=== PATIENT | female | born 1950 | race Caucasian/White ===

== ENCOUNTER → 2020-08-03 10:21 | Outpatient (REF) | payer MEDICARE, MEDICAID, SELFPAY ==
--- NOTE | 2020-08-03 10:30 | CA_ITS ---
Transthoracic Echocardiogram Patient (Last, First, Middle): Amanda Maradiaga L Gender: Female Date of : 1950 Age: 70 Procedure Date: 08/03/2020 Procedure Type: Transthoracic Echocardiogram Location: OP Height: 157.48 cm Weight: 87.09 kg BSA: 1.88 m2 Heart Rate: bpm BP: 130 / 80 mmHg [employer] Wheel [employer]isher: OPAL Referring MD: Danny Lorenzana MD Symptoms: 135.0 Nonrheumatic Aortic Valve Stenosis Conclusions: - Normal left ventricular size and systolic function. - E/E prime ratio is >15, consistent with elevated filling pressures - The left atrium is severely dilated - There is moderate to severe aortic valve stenosis. The peak aortic velocity is 3.87 m/s with a calculated peak gradient of 60 mmHg. The mean gradient is 31 mmHg. The aortic valve area is 0.90 cm2. There is trace (trivial) aortic valve regurgitation. SVI 36.7. - Gradient may have been underestimated. Correlate clinically. - There is mild dilatation of the ascending aorta. Findings Left Ventricle Normal left ventricular size and systolic function. There is moderately increased left ventricular wall thickness. The visually estimated ejection fraction is between 55-60%. There is no evidence of regional wall motion abnormalities. Abnormal diastolic function is noted. Spectral Doppler is indicative of an impaired relaxation filling pattern. E/E prime ratio is >15, consistent with elevated filling pressures. Right Ventricle Normal right ventricular cavity size and systolic function. Atria The left atrium is severely dilated. There is no evidence of interatrial shunt by color Doppler. The right atrium is mildly dilated. Aortic Valve There is moderate calcification of the aortic valve. There is mild thickening of the aortic valve. There is moderate to severe aortic valve stenosis. The peak aortic velocity is 3.87 m/s with a calculated peak gradient of 60 mmHg. The mean gradient is 31 mmHg. The aortic valve area is 0.90 cm2. There is trace (trivial) aortic valve regurgitation. SVI 36.7. Gradient may have been underestimated. Correlate clinically. Mitral Valve There is moderate mitral annular calcification. There is trace mitral valve regurgitation. There is no mitral valve stenosis. Pulmonic Valve The pulmonic valve is likely normal. Tricuspid Valve Normal tricuspid valve structure and function. There is trace tricuspid valve regurgitation. Normal right atrial pressure. There is no evidence of pulmonary hypertension. Great Vessels There is mild dilatation of the ascending aorta. The visualized portions of the pulmonary artery and branches are normal. Venous The inferior vena cava is normal in size and collapses greater than 50% with inspiration. Pericardium/Pleural There is no evidence of pericardial effusion. Prior Study Comparison Significant changes compared to prior study dated: 06/25/2018. Moderate to severe present. Measurements 2D Linear Measurements IVSd: 1.25 0.6-0.9/0.6-1.0 cm LVIDd: 5.07 3.9-5.3/4.2-5.9 cm LVIDd Index: 2.70 2.4-3.2/2.2-3.1 cm/m2 LVIDs: 3.32 2.0-3.6 cm LVPWd: 1.21 0.7-1.1 cm Ao Root: 2.70 2.1-3.5 cm LA Diam: 5.90 2.7-3.8/3.0-4.0 cm LAIDs Index: 3.14 1.5-2.3 cm/m2 LV Mass: 308.50 67-162/88-224 g LV Mass Index: 164.10 43-95/49-115 g/m2 LVOT Diam: 2.00 3.0+(-)1.3 cm 2D Systolic Function EF 4C: 65.20 >55% EF 2C: 72.90 >55% EF BiP: 70.30 >55% Mitral Valve MV Pk E: 1.03 MV PK A: 1.15 MV Decel Time: 327.00 E/A: 0.90 E'Lateral: 7.16 E'Medial: 6.38 E/E' Med: 16.10 E/E' Lat: 14.40 PHT: 96.00 MVA PHT: 2.29 Decel [place]: 3.14 Aortic Valve AoV Pk Trey: 3.87 AoV Mn Trey: 2.26 AoV VTI: 0.75 AoV Pk Grad: 60.00 Aov Mn Grad: 31.00 AMBAR Cont.VTI: 0.90 LVOT LVOT Pk Trey: 0.96 LVOT Mn Trey: 0.70 LVOT VTI: 0.22 LVOT Pk Grad: 4.00 LVOT Mn Grad: 2.00 LVOT Diam: 2.00 LVOT Area: 3.14 Diastolic Function MV Pk E: 1.03 MV Pk A: 1.15 E/A: 0.90 E'Medial: 6.38 E/E' Med: 16.10 E' Laterial: 7.16 E/E' Lat: 14.40 Tricuspid Valve TR Pk Trey: 2.54 TR Pk Grad: 26.00 RA Press: 3.00 RVSP: 29.00 Great Vessels Aorta Ao Root-2D: 2.70 2.0-3.7 cm Ao Asc: 3.80 2.1-3.4 cm Ao Arch: 2.80 Updated in Other Vendor System with Status of Final Sharif Muhammad MD electronically signed on 08/04/2020 11:12:57 AM with status of Final
== END ==
LOC: HO.CARD 10:21
PROVIDERS: Visit Provider Internal Medicine
DX: I35.0 Nonrheumatic aortic (valve) stenosis (principal)
CPT/HCPCS: 93306

== ENCOUNTER → 2020-08-19 12:31 | Outpatient (BNVA) | payer MEDICARE, MEDICAID, SELFPAY | PROVIDERS: PCP Internal Medicine; Visit Provider Internal Medicine | DX: I50.32 Chronic diastolic (congestive) heart failure (principal); I35.0 Nonrheumatic aortic (valve) stenosis; I25.10 Atherosclerotic heart disease of native coronary artery without angina pectoris; I49.8 Other specified cardiac arrhythmias; I45.2 Bifascicular block; G47.33 Obstructive sleep apnea (adult) (pediatric); Z79.899 Other long term (current) drug therapy; Z99.81 Dependence on supplemental oxygen | CPT/HCPCS: 93005; 99212 ==

== ENCOUNTER 2020-08-30 13:23 | Outpatient (REF) | payer MEDICARE, MEDICAID, SELFPAY ==
[2020-08-30 14:49] LABS: HCO3 VBG 31 mmol/L; PCO2 VBG 52 mmhg; PO2 VBG 43 mmhg; pH VBG 7.39 (7.32-7.43)
[2020-08-30 14:50] LABS: Base Excess VBG 4.3 mmol/L; Oxygen Saturation VBG 82.3 %
[2020-08-30 15:08] LABS: Anion Gap 11 (12-20); Blood Urea Nitrogen 20 mg/dL (9-16); Carbon Dioxide 31 mmol/L (22-29); Chloride 102 mmol/L (96-108); Estimated Glomerular Filt Rate > 60; Glucose Random 101 mg/dL (60-115); Potassium 3.6 mmol/l (3.3-5.1); Sodium 140 mmol/L (135-145)
[2020-08-30 15:14] LABS: B Type Natriuretic Peptide 143 pg/mL (<100)
== END 2020-08-30 13:24 | disposition home or self-care (01) ==
LOC: HO.LABR 13:23
PROVIDERS: Absent Provider Internal Medicine; PCP Internal Medicine; Referring Provider Internal Medicine; Visit Provider Internal Medicine
DX: J44.9 Chronic obstructive pulmonary disease, unspecified (principal); J96.91 Respiratory failure, unspecified with hypoxia; J96.92 Respiratory failure, unspecified with hypercapnia; I35.0 Nonrheumatic aortic (valve) stenosis; I50.32 Chronic diastolic (congestive) heart failure; G47.33 Obstructive sleep apnea (adult) (pediatric); Z99.81 Dependence on supplemental oxygen
CPT/HCPCS: 80048; 82803; 83880; 99212

== ENCOUNTER 2020-09-22 15:13 | Outpatient (REF) | payer MEDICARE, MEDICAID, SELFPAY ==
[2020-09-22 16:14] LABS: MANUAL DIFF FLAG NO
[2020-09-22 16:17] LABS: Basophils Absolute Auto 0.1 X10*3/uL (0.0-0.2); Basophils Percent Auto 0.6 % (0-2); Eosinophils Absolute Auto 0.2 X10*3/uL (0.0-0.4); Eosinophils Percent Auto 1.7 % (0-4); Hematocrit 46.7 % (37-47); Hemoglobin 15.1 g/dl (12.0-16.0); Imm Gran Abs Auto 0.03 X10*3/uL (0.00-0.03); Imm Gran Pct Auto 0.3 % (0.0-0.4); Lymphocytes Absolute Auto 1.7 X10*3/uL (1.2-4.9); Lymphocytes Percent Auto 18.7 % (20-40); Mean Corpuscular HGB Conc 32.3 g/dl (31.0-35.0); Mean Corpuscular Hemoglobin 30.6 pg (27.0-33.0); Mean Corpuscular Volume 94.5 fL (80-98); Mean Platelet Volume 10.2 fL (9.4-12.3); Monocytes Absolute Auto 0.8 X10*3/uL (0.1-1.2); Neutrophils Absolute Auto 6.4 X10*3/uL (2.0-8.3); Neutrophils Percent Auto 69.7 % (45-73); Platelet Count 247 X10*3/uL (160-400); Red Blood Count 4.94 X10*6/uL (4.20-5.50); Red Cell Distribution Width 13.1 % (11.0-16.0); White Blood Count 9.2 X10*3/uL (4.8-10.8)
[2020-09-22 16:54] LABS: Alanine Aminotransferase 9 U/L (0-31); Albumin Level 4.4 g/dL (3.5-5.0); Alkaline Phosphatase 109 U/L (39-117); Anion Gap 14 (12-20); Aspartate Amino Transferase 17 U/L (5-31); Bilirubin Total 0.8 mg/dL (0.0-1.0); Blood Urea Nitrogen 15 mg/dL (9-16); Calcium 9.3 mg/dL (8.4-10.2); Carbon Dioxide 31 mmol/L (22-29); Chloride 99 mmol/L (96-108); Estimated Glomerular Filt Rate > 60; Glucose Random 95 mg/dL (60-115); Potassium 4.1 mmol/l (3.3-5.1); Sodium 140 mmol/L (135-145); Total Protein 7.5 g/dL (6.5-8.0)
== END 2020-09-22 15:14 | disposition home or self-care (01) ==
LOC: HO.LNP 15:13
PROVIDERS: PCP Internal Medicine; Visit Provider Internal Medicine
DX: Z20.828 Contact with and (suspected) exposure to other viral communicable diseases (principal); R05 Cough; R06.02 Shortness of breath; R10.9 Unspecified abdominal pain; K62.5 Hemorrhage of anus and rectum; J44.9 Chronic obstructive pulmonary disease, unspecified
CPT/HCPCS: 36415; 80053; 85025; U0003

== ENCOUNTER 2020-09-28 14:23 | Outpatient (REF) | payer MEDICARE, MEDICAID, SELFPAY ==
--- NOTE | 2020-09-28 | XR_ITS ---
EXAMINATION: XR ABDOMEN WITH DECUBITUS VIEWS CLINICAL INDICATION: Abdominal pain COMPARISON: CT scan of June 25, 2020 and KUB of October 10, 2019 TECHNIQUE: KUB FINDINGS: There is again noted to be a large amount of stool seen within the right colon, transverse colon, and descending colon. No pneumatosis intestinalis. No evidence of ileus or obstruction. No definite secondary signs of free air. Calcified pleural plaques seen about the right lung base. Degenerative change of sacroiliac joints are evident. Status post right upper quadrant surgery likely related to previous cholecystectomy. XR/XR abdomen w decubitus IMPRESSION: No evidence of ileus or obstruction. Large amount of stool seen throughout the colon.
== END 2020-09-28 14:24 | disposition home or self-care (01) ==
LOC: HO.XRAY 14:23
PROVIDERS: Absent Provider Internal Medicine; PCP Internal Medicine; Visit Provider Internal Medicine
DX: J96.91 Respiratory failure, unspecified with hypoxia (principal); J96.92 Respiratory failure, unspecified with hypercapnia; J44.9 Chronic obstructive pulmonary disease, unspecified; G47.33 Obstructive sleep apnea (adult) (pediatric); I50.32 Chronic diastolic (congestive) heart failure; R10.9 Unspecified abdominal pain; K62.5 Hemorrhage of anus and rectum
CPT/HCPCS: 74021; 99212

== ENCOUNTER → 2020-10-04 14:06 | Outpatient (BNVA) | payer MEDICARE, MEDICAID, SELFPAY | PROVIDERS: PCP Internal Medicine; Visit Provider Internal Medicine | DX: I50.32 Chronic diastolic (congestive) heart failure (principal); I35.0 Nonrheumatic aortic (valve) stenosis; I25.10 Atherosclerotic heart disease of native coronary artery without angina pectoris; I49.8 Other specified cardiac arrhythmias; I45.2 Bifascicular block; G47.33 Obstructive sleep apnea (adult) (pediatric); Z99.81 Dependence on supplemental oxygen | CPT/HCPCS: 93005; 99212 ==

== ENCOUNTER → 2020-10-25 13:39 | Outpatient (BNVA) | payer MEDICARE, MEDICAID, SELFPAY | PROVIDERS: PCP Internal Medicine; Referring Provider Internal Medicine; Visit Provider Urology | DX: Z76.89 Persons encountering health services in other specified circumstances (principal) | CPT/HCPCS: Q3014 ==

== ENCOUNTER 2020-10-29 12:37 | Emergency (ER) | payer MEDICARE, MEDICAID, SELFPAY ==
--- NOTE | 2020-10-29 12:46 | ED_ITS ---
HPI - Chest Pain General Chief Complaint: Chest Pain Stated Complaint: cp Time Seen by Provider: 10/29/20 12:46 Source: patient Mode of arrival: ambulatory Limitations: no limitations History of Present Illness HPI narrative: patient with multiple complaints I have chest pain for a long time. I have neuropathy No one understands me I have neuropathy, I think I belong in a hospital. was given ASA and nitro with EMS no relief of her chronic chest pain, had cardiac cath 2018 non obs CAD, does have moderate to severe possible TAVR candidate but is O2 dependent COPDer complaint: chest pain Pertinent past history: asthma Onset (ago): year(s) ( a long time ) Timing of current episode: constant Prior episodes: Yes Onset: during rest and during exertion Pain location: left chest Pain radiation: none Severity: similar to previous episodes Quality: heaviness Relieving factors: nothing Exacerbating factors: nothing Context: other (chronic chest pain) Associated symptoms: other (weakness, fatigue, neuropathy) Treatment prior to arrival: aspirin and nitroglycerin Related Data Home Medications Medication Instructions Recorded Confirmed atorvastatin 40 mg tablet 40 mg PO ONCE tab 08/19/20 10/04/20 diltiazem HCl 120 mg 120 mg PO Q12H cap 08/19/20 10/04/20 capsule,extended release 12 hr fluticasone furoate 200 1 inh INHALATION DAILY 08/30/20 10/04/20 mcg-vilanterol 25 mcg/dose inhalation powder guaifenesin 600 mg tablet, 600 mg PO BID 08/30/20 10/04/20 extended release 12 hr ipratropium 0.5 mg-albuterol 3 mg 3 ml INHALATION Q6H PRN 08/30/20 10/04/20 (2.5 mg base)/3 mL nebulization soln tiotropium bromide 18 mcg capsule 1 cap INHALATION DAILY 08/30/20 10/04/20 with inhalation device clonazepam 0.5 mg tablet 0.5 mg PO BEDTIME tab 10/04/20 10/04/20 dicyclomine 10 mg capsule 10 mg PO BID PRN cap 10/04/20 10/04/20 furosemide 20 mg tablet 40 mg PO BID tab 10/04/20 10/04/20 levothyroxine 175 mcg tablet 175 mcg PO DAILY tab 10/04/20 10/04/20 mirabegron 50 mg tablet,extended 50 mg PO DAILY tab 10/04/20 10/04/20 release 24 hr omeprazole 20 mg capsule,delayed 20 mg PO DAILY cap 10/04/20 10/04/20 release oxybutynin chloride 10 mg 10 mg PO DAILY tab 10/04/20 10/04/20 tablet,extended release 24 hr vilazodone 40 mg tablet 40 mg PO DAILY tab 10/04/20 10/04/20 desvenlafaxine succinate 25 mg mg PO 10/25/20 tablet,extended release 24 hr lactulose 10 gram/15 mL oral PO 10/25/20 solution Previous Rx's Medication Instructions Recorded albuterol sulfate 90 mcg/actuation 2 puff PO DAILY PRN #18 g 09/22/20 aerosol inhaler Allergies Allergy/AdvReac Type Severity Reaction Status Date / Time morphine [Morphine] Allergy Unknown UNKNOWN Verified 10/04/20 14:20 Review of Systems Review of Systems: Constitutional : No Weight loss, No Fever, No Chills ENT/Mouth : No sore throat, No Rhinorrhea Eyes: No Eye Pain, No Swelling Cardiovascular : pos Chest Pain, pos SOB, no Dyspnea on Exertion, No Orthopnea, No Edema, No Palpitations Respiratory : No Cough, No Sputum Gastrointestinal : pos Nausea, No Vomiting, No Diarrhea, No abdominal Pain, No Hematochezia, No Melena Genitourinary : No Dysuria, No Urinary Frequency Musculoskeletal : No joint pain, No Myalgias, No Joint Swelling Skin : No Skin Lesions, No rash Neuro : No Weakness, No Numbness, No Dizziness, No Headache Psych : No Anxiety/Panic, No Depression Heme/Lymph: No Bruising, No Lymphadenopathy Endocrine : No Polyuria, No Polydipsia All other systems reviewed and are negative [facility] Past Medical History Attestation statement: The following information was validated with the patient. Medical History Atherosclerotic cardiovascular disease Atrial arrhythmia Bifascicular block Chronic diastolic (congestive) heart failure COPD (chronic obstructive pulmonary disease) COPD (chronic obstructive pulmonary disease) Enuresis Nonrheumatic aortic (valve) stenosis On home oxygen therapy DHEERAJ (obstructive sleep apnea) Respiratory failure with hypoxia and hypercapnia Urge incontinence Surgical History History of umbilical hernia repair Family History Family History Father No problems noted. Mother No problems noted. Social History Social History Alcohol intake: never Smoking Status: Current every day smoker Smoked in Last 30 Days: No Use of substances other than those prescribed or required for medical reasons: No Advance Directives: No Advance Directives Information Provided: Yes Physical Exam Vital Signs: Vital Signs: Last Vital Signs Temp 97.6 F 10/29/20 12:56 Pulse 72 10/29/20 12:56 Resp 18 10/29/20 12:56 BP 111/78 10/29/20 12:56 Pulse Ox 94 10/29/20 12:56 Body Mass Index 47.0 Appearance: Alert. Oriented X3. No acute distress. Flat affect Eyes: Pupils equal, round and reactive to light. ENT: Pharynx normal. Neck: Normal inspection. Neck supple. CVS: Normal heart rate and rhythm. Pulses normal. Respiratory: No respiratory distress. Breath sounds normal. Abdomen: Soft and nontender. Skin: Skin warm and dry. Normal skin color. Normal skin turgor. Extremities: No lower extremity edema. No calf ttp Neuro: Oriented X 3. No motor deficit. No sensory deficit. Course Course Course Narrative: signed out to Dr. De Jesus pending repeat troponin MDM - Chest Pain MDM Narrative Medical decision making narrative: 70 yo female with COPD, atrial arrythmia, on home O2, here with chronic chest pain, nausea, neuropathy, feels tired I think I should be admitted to the hospital When I explained to the patient that I needed an acute reason to admit as this seems all chronic she was upset - possible rehab, at this time will obtain EKG, CXR, troponin, basic labs, she is not toxic, I doubt PE as she has had chest pain for years Lab Data Result diagrams: 10/29/20 14:27 10/29/20 14:28 Labs: Lab Results 10/29/20 10/29/20 10/29/20 Range/Units 14:12 14:27 14:27 WBC 7.9 (4.8-10.8) X10*3/uL RBC 4.96 (4.20-5.50) X10*6/uL Hgb 15.1 (12.0-16.0) g/dl Hct 46.6 (37-47) % MCV 94.0 (80-98) fL MCH 30.4 (27.0-33.0) pg MCHC 32.4 (31.0-35.0) g/dl RDW 13.2 (11.0-16.0) % Plt Count 212 (160-400) X10*3/uL MPV 9.7 (9.4-12.3) fL Immature Gran % (Auto) 0.3 (0.0-0.4) % Neut % (Auto) 68.6 (45-73) % Lymph % (Auto) 20.3 (20-40) % [place] % (Auto) 8.7 (2-11) % Eos % (Auto) 1.6 (0-4) % Baso % (Auto) 0.5 (0-2) % Lymph # (Auto) 1.6 (1.2-4.9) X10*3/uL [place] # (Auto) 0.7 (0.1-1.2) X10*3/uL Eos # (Auto) 0.1 (0.0-0.4) X10*3/uL Baso # (Auto) 0.0 (0.0-0.2) X10*3/uL Abs Immat Gran (auto) 0.02 (0.00-0.03) X10*3/uL Absolute Neuts (auto) 5.5 (2.0-8.3) X10*3/uL Absolute Nucleated RBC 0.000 (0.0-0.012) X10*3/uL Nucleated RBC % (auto) 0.0 (0.0-0.2) /100WBC Hold Blue Top Sodium (135-145) mmol/L Potassium (3.3-5.1) mmol/l Chloride (96-108) mmol/L Carbon Dioxide (22-29) mmol/L Anion Gap (12-20) BUN (9-16) mg/dL Creatinine (0.5-1.4) mg/dL Estim Creat Clear Calc Estimated GFR Random Glucose (60-115) mg/dL Calcium (8.4-10.2) mg/dL Magnesium (1.6-2.6) mg/dL Total Bilirubin (0.0-1.0) mg/dL Direct Bilirubin (0.0-0.5) mg/dL AST (5-31) U/L ALT (0-31) U/L Alkaline Phosphatase (39-117) U/L Total Creatine Kinase (26-140) U/L Troponin I High Sens (<3.5-17.0) ng/L B-Natriuretic Peptide 228 H (<100) pg/mL Total Protein (6.5-8.0) g/dL Albumin (3.5-5.0) g/dL Lipase (8-78) U/L Urine Color Urine Appearance Urine pH (5.0-8.0) Ur Specific [place] (1.005-1.025) Urine Protein (NEG-TRACE) MG/DL Urine Glucose (UA) (NEG) MG/DL Urine Ketones (NEG) MG/DL Urine Blood (NEG) Urine Nitrite (NEG) Ur Leukocyte Esterase (NEG) Urine RBC (0) /HPF Urine WBC (0-4) /HPF Ur Squamous Epith Cells /LPF Urine Bacteria /LPF COVID-19 ([facility]) Negative (Negative) COVID-19 Clin Com See Note 10/29/20 10/29/20 10/29/20 Range/Units 14:27 14:27 14:27 WBC (4.8-10.8) X10*3/uL RBC (4.20-5.50) X10*6/uL Hgb (12.0-16.0) g/dl Hct (37-47) % MCV (80-98) fL MCH (27.0-33.0) pg MCHC (31.0-35.0) g/dl RDW (11.0-16.0) % Plt Count (160-400) X10*3/uL MPV (9.4-12.3) fL Immature Gran % (Auto) (0.0-0.4) % Neut % (Auto) (45-73) % Lymph % (Auto) (20-40) % [place] % (Auto) (2-11) % Eos % (Auto) (0-4) % Baso % (Auto) (0-2) % Lymph # (Auto) (1.2-4.9) X10*3/uL [place] # (Auto) (0.1-1.2) X10*3/uL Eos # (Auto) (0.0-0.4) X10*3/uL Baso # (Auto) (0.0-0.2) X10*3/uL Abs Immat Gran (auto) (0.00-0.03) X10*3/uL Absolute Neuts (auto) (2.0-8.3) X10*3/uL Absolute Nucleated RBC (0.0-0.012) X10*3/uL Nucleated RBC % (auto) (0.0-0.2) /100WBC Hold Blue Top SEE NOTE Sodium (135-145) mmol/L Potassium (3.3-5.1) mmol/l Chloride (96-108) mmol/L Carbon Dioxide (22-29) mmol/L Anion Gap (12-20) BUN (9-16) mg/dL Creatinine (0.5-1.4) mg/dL Estim Creat Clear Calc Estimated GFR Random Glucose (60-115) mg/dL Calcium (8.4-10.2) mg/dL Magnesium (1.6-2.6) mg/dL Total Bilirubin (0.0-1.0) mg/dL Direct Bilirubin (0.0-0.5) mg/dL AST (5-31) U/L ALT (0-31) U/L Alkaline Phosphatase (39-117) U/L Total Creatine Kinase (26-140) U/L Troponin I High Sens 16.0 (<3.5-17.0) ng/L B-Natriuretic Peptide (<100) pg/mL Total Protein (6.5-8.0) g/dL Albumin (3.5-5.0) g/dL Lipase 11 (8-78) U/L Urine Color Urine Appearance Urine pH (5.0-8.0) Ur Specific [place] (1.005-1.025) Urine Protein (NEG-TRACE) MG/DL Urine Glucose (UA) (NEG) MG/DL Urine Ketones (NEG) MG/DL Urine Blood (NEG) Urine Nitrite (NEG) Ur Leukocyte Esterase (NEG) Urine RBC (0) /HPF Urine WBC (0-4) /HPF Ur Squamous Epith Cells /LPF Urine Bacteria /LPF COVID-19 ([facility]) (Negative) COVID-19 Clin Com 10/29/20 10/29/20 Range/Units 14:28 15:06 WBC (4.8-10.8) X10*3/uL RBC (4.20-5.50) X10*6/uL Hgb (12.0-16.0) g/dl Hct (37-47) % MCV (80-98) fL MCH (27.0-33.0) pg MCHC (31.0-35.0) g/dl RDW (11.0-16.0) % Plt Count (160-400) X10*3/uL MPV (9.4-12.3) fL Immature Gran % (Auto) (0.0-0.4) % Neut % (Auto) (45-73) % Lymph % (Auto) (20-40) % [place] % (Auto) (2-11) % Eos % (Auto) (0-4) % Baso % (Auto) (0-2) % Lymph # (Auto) (1.2-4.9) X10*3/uL [place] # (Auto) (0.1-1.2) X10*3/uL Eos # (Auto) (0.0-0.4) X10*3/uL Baso # (Auto) (0.0-0.2) X10*3/uL Abs Immat Gran (auto) (0.00-0.03) X10*3/uL Absolute Neuts (auto) (2.0-8.3) X10*3/uL Absolute Nucleated RBC (0.0-0.012) X10*3/uL Nucleated RBC % (auto) (0.0-0.2) /100WBC Hold Blue Top Sodium 143 (135-145) mmol/L Potassium 3.9 (3.3-5.1) mmol/l Chloride 103 (96-108) mmol/L Carbon Dioxide 30 H (22-29) mmol/L Anion Gap 14 (12-20) BUN 13 (9-16) mg/dL Creatinine 0.79 (0.5-1.4) mg/dL Estim Creat Clear Calc 93.8 Estimated GFR > 60 Random Glucose 91 (60-115) mg/dL Calcium 9.1 (8.4-10.2) mg/dL Magnesium 2.3 (1.6-2.6) mg/dL Total Bilirubin 0.9 (0.0-1.0) mg/dL Direct Bilirubin 0.4 (0.0-0.5) mg/dL AST 15 (5-31) U/L ALT 11 (0-31) U/L Alkaline Phosphatase 102 (39-117) U/L Total Creatine Kinase 39 (26-140) U/L Troponin I High Sens (<3.5-17.0) ng/L B-Natriuretic Peptide (<100) pg/mL Total Protein 6.9 (6.5-8.0) g/dL Albumin 4.1 (3.5-5.0) g/dL Lipase (8-78) U/L Urine Color YELLOW Urine Appearance CLEAR Urine pH 6.5 (5.0-8.0) Ur Specific [place] 1.010 (1.005-1.025) Urine Protein NEG (NEG-TRACE) MG/DL Urine Glucose (UA) NEG (NEG) MG/DL Urine Ketones NEG (NEG) MG/DL Urine Blood NEG (NEG) Urine Nitrite NEG (NEG) Ur Leukocyte Esterase 1+ H (NEG) Urine RBC 0-2 (0) /HPF Urine WBC 5-9 H (0-4) /HPF Ur Squamous Epith Cells 1+ /LPF Urine Bacteria TRACE /LPF COVID-19 ([facility]) (Negative) COVID-19 Clin Com ECG Data ECG #1: Attestation: I personally reviewed and interpreted this ECG as follows: ECG interpretation date: 10/29/20 ECG interpretation time: 14:55 Interpretation: Rate: 66 Rhythm: NSR [place]: left Normal P waves. Normal RIP. RBBB ST T wave : nonspecific, no SUSAN qTC: normal prior studies: no acute ischemia, no change from priors The study has been interpreted contemporaneously by me. . Discharge Plan Discharge Clinical Impression: Chest pain Prescriptions: No Action albuterol sulfate 90 mcg/actuation HFA aerosol inhaler 2 puff PO DAILY PRN (Reason: for dyspnea) Qty: 18 RF: 3 lactulose 10 gram/15 mL solution PO RF: 0 desvenlafaxine succinate 25 mg tablet extended release 24 hr PO RF: 0 oxybutynin chloride 10 mg tablet extended release 24hr 10 mg PO DAILY RF: 0 guaifenesin [Mucinex] 600 mg tablet extended release 12hr 600 mg PO BID RF: 0 Breo Ellipta 200-25 mcg/dose blister with device 1 inh inhalation DAILY RF: 0 Spiriva with HandiHaler 18 mcg capsule, w/inhalation device 1 cap inhalation DAILY RF: 0 ipratropium-albuterol 0.5 mg-3 mg(2.5 mg base)/3 mL solution for nebulization 3 ml inhalation Q6H PRNRF: 0 diltiazem HCl 120 mg capsule,extended release 12 hr 120 mg PO Q12H RF: 0 atorvastatin 40 mg tablet 40 mg PO ONCE RF: 0 vilazodone 40 mg tablet 40 mg PO DAILY RF: 0 omeprazole 20 mg capsule,delayed release(DR/EC) 20 mg PO DAILY RF: 0 levothyroxine 175 mcg tablet 175 mcg PO DAILY RF: 0 furosemide 20 mg tablet 40 mg PO BID RF: 0 dicyclomine 10 mg capsule 10 mg PO BID PRNRF: 0 clonazepam 0.5 mg tablet 0.5 mg PO BEDTIME RF: 0 Myrbetriq 50 mg tablet extended release 24 hr 50 mg PO DAILY RF: 0
[2020-10-29 12:56] VITALS: BP 111/78; BP 118/70; PULSE 72; PULSE 90; RESP 18; TEMP 36.4; O2SAT 94; O2SAT 95; BMI 47.0
--- NOTE | 2020-10-29 13:03 | ECG_ITS ---
Test Reason : CHEST PAIN Blood Pressure : / mmHG Vent. Rate : 066 BPM Atrial Rate : 066 BPM P-R Int : 160 ms QRS Dur : 148 ms QT Int : 450 ms P-R-T Axes : 007 -57 016 degrees QTc Int : 471 ms Normal sinus rhythm Right bundle branch block Left anterior fascicular block Bifascicular block Minimal voltage criteria for LVH, may be normal variant Abnormal ECG When compared with ECG of 25-JUN-2020 10:18, Premature atrial complexes are no longer Present Referred By: Triny Salvador Electronically Signed By:ARMANDO KENNEDY MD
--- NOTE | 2020-10-29 13:04 | XR_ITS ---
EXAMINATION: XR CHEST CLINICAL INFORMATION: Chest pain COMPARISON: None TECHNIQUE: Frontal view of the chest was obtained. FINDINGS: The lungs are well-expanded with increased bilateral parahilar vascular markings question mild congestion. The heart size is enlarged. No gross bony abnormality seen. XR/XR chest 1V IMPRESSION: Mild cardiomegaly with mild perivascular congestion.
[2020-10-29 14:32] LABS: MANUAL DIFF FLAG NO
[2020-10-29 14:36] LABS: Basophils Percent Auto 0.5 % (0-2); Eosinophils Absolute Auto 0.1 X10*3/uL (0.0-0.4); Eosinophils Percent Auto 1.6 % (0-4); Hematocrit 46.6 % (37-47); Hemoglobin 15.1 g/dl (12.0-16.0); Imm Gran Abs Auto 0.02 X10*3/uL (0.00-0.03); Imm Gran Pct Auto 0.3 % (0.0-0.4); Lymphocytes Absolute Auto 1.6 X10*3/uL (1.2-4.9); Lymphocytes Percent Auto 20.3 % (20-40); Mean Corpuscular HGB Conc 32.4 g/dl (31.0-35.0); Mean Corpuscular Hemoglobin 30.4 pg (27.0-33.0); Mean Platelet Volume 9.7 fL (9.4-12.3); Monocytes Absolute Auto 0.7 X10*3/uL (0.1-1.2); Monocytes Percent Auto 8.7 % (2-11); Neutrophils Absolute Auto 5.5 X10*3/uL (2.0-8.3); Neutrophils Percent Auto 68.6 % (45-73); Platelet Count 212 X10*3/uL (160-400); Red Blood Count 4.96 X10*6/uL (4.20-5.50); Red Cell Distribution Width 13.2 % (11.0-16.0); White Blood Count 7.9 X10*3/uL (4.8-10.8)
[2020-10-29 14:50] LABS: COVID-19 Test Negative (Negative); IDNOW Serial# 9DD0AD1C
[2020-10-29 15:03] LABS: Lipase 11 U/L (8-78)
[2020-10-29 15:04] LABS: Alanine Aminotransferase 11 U/L (0-31); Albumin Level 4.1 g/dL (3.5-5.0); Alkaline Phosphatase 102 U/L (39-117); Anion Gap 14 (12-20); Aspartate Amino Transferase 15 U/L (5-31); Bilirubin Direct 0.4 mg/dL (0.0-0.5); Bilirubin Total 0.9 mg/dL (0.0-1.0); Blood Urea Nitrogen 13 mg/dL (9-16); Calcium 9.1 mg/dL (8.4-10.2); Carbon Dioxide 30 mmol/L (22-29); Chloride 103 mmol/L (96-108); Creatinine Clr Calc Pharmacy 93.8; Estimated Glomerular Filt Rate > 60; Glucose Random 91 mg/dL (60-115); Magnesium 2.3 mg/dL (1.6-2.6); Potassium 3.9 mmol/l (3.3-5.1); Sodium 143 mmol/L (135-145); Total Protein 6.9 g/dL (6.5-8.0)
[2020-10-29 15:11] LABS: B Type Natriuretic Peptide 228 pg/mL (<100)
[2020-10-29 15:15] LABS: Glucose Urine UA NEG (NEG); Leukocyte Esterase Urine 1+ (NEG); Nitrite Urine NEG (NEG); PH 6.5 (5.0-8.0); Urine Blood NEG (NEG); Urine Ketones NEG (NEG); Urine Protein NEG (NEG-TRACE)
[2020-10-29 15:45] LABS: Appearance Urine CLEAR; Color Urine YELLOW
[2020-10-29 15:46] LABS: Bacteria Urine TRACE /LPF; RBC Urine 0-2 /HPF (0); Squamous Epithelial Cell Urine 1+ /LPF
[2020-10-29 16:00] VITALS: PULSE 70; RESP 18; O2SAT 94
[2020-10-29 18:22] VITALS: PULSE 74; RESP 16; O2SAT 96
[2020-10-29 18:34] LABS: Troponin-I High Sensitivity 14.7 ng/L (<3.5-17.0)
[2020-10-29 18:40] VITALS: BP 153/81; PULSE 68; RESP 14; TEMP 37.2; O2SAT 94
--- NOTE | 2020-10-29 19:26 | PC.NURSE ---
Report taken from laura Garrison RN resuming care. Pt reporting a POON, CP radiating into her stomach and difficulty swallowing. Pt expressing a desire to go home, states they haven't done anything for me today. VSS. Continue to monitor.
[2020-10-29 19:48] VITALS: PULSE 64; RESP 18; O2SAT 96
--- NOTE | 2020-10-29 20:01 | PC.NURSE ---
Pt made aware of pending DC, pt extremely apprehensive about being discharged home. Pt states that she feels safe at home, lives with her son who helps care for her. This RN discussing long-term care or rehab placement with pt, pt refusing to entertain the idea of rehab or SNF placement. This RN offering to have MD reevaluate pt due to her continued complaints but pt refusing. This RN calling son Ward discussing plan to DC pt home via ambulance. Son states that pt recently saw her PCP this week due to feeling poorly and was fully evaluated. Son states that pt has anxiety due to multiple chronic conditions. Son assuring this RN that he is able to care for pt @ home. Continue to monitor.
[2020-10-29 21:16] VITALS: BP 124/72
--- NOTE | 2020-10-29 21:16 | PC.NURSE ---
x ray tech at bedside helping pt dress. Report given to EMS. Pt provided with DC instructions.
== END 2020-10-29 21:30 | disposition home or self-care (01) ==
PROVIDERS: Emergency Medicine; Emergency Provider Emergency Medicine; PCP Internal Medicine
DX: R07.89 Other chest pain (principal); Z20.822 Contact with and (suspected) exposure to COVID-19; J44.9 Chronic obstructive pulmonary disease, unspecified; Z99.81 Dependence on supplemental oxygen; I50.9 Heart failure, unspecified
CPT/HCPCS: 36415; 71045; 80048; 80076; 81001; 82550; 83690; 83735; 83880; 84484; 85025; 87086; 87635; 93005; 99283; 99284

== ENCOUNTER → 2020-11-04 14:54 | Outpatient (BNVA) | payer MEDICARE, MEDICAID, SELFPAY | PROVIDERS: PCP Internal Medicine; Visit Provider Urology | DX: N39.41 Urge incontinence (principal); Z79.899 Other long term (current) drug therapy | CPT/HCPCS: Q3014 ==

== ENCOUNTER → 2020-11-22 13:56 | Outpatient (REF) | payer MEDICARE, MEDICAID, SELFPAY ==
--- NOTE | 2020-11-22 13:59 | CA_ITS ---
Transthoracic Echocardiogram Patient (Last, First, Middle): Amanda Maradiaga L Gender: Female Date of : 1950 Age: 70 Procedure Date: 11/22/2020 Procedure Type: Transthoracic Echocardiogram Location: OP Height: 157.48 cm Weight: 87.09 kg BSA: 1.88 m2 Heart Rate: bpm BP: 140 / 72 mmHg Breeding Manager: GIULIA Referring MD: Koby Page MD Symptoms: I35.0 - Nonrheumatic aortic (valve) stenosis Study Quality: Good ECG Rhythm: Sinus Conclusions: - The left ventricular systolic function is normal. The visually estimated ejection fraction is between 60-65%. - The left atrium is severely dilated. - There is mild to moderate aortic valve stenosis. - There is moderate mitral annular calcification. Findings Left Ventricle Normal left ventricular cavity size. There is moderately increased left ventricular wall thickness. The left ventricular systolic function is normal. The visually estimated ejection fraction is between 60-65%. There is no evidence of regional wall motion abnormalities. E/E prime ratio is >15, consistent with elevated filling pressures. Evidence suggests grade I (mild) diastolic dysfunction. Right Ventricle Normal right ventricular cavity size and systolic function. Atria The left atrium is severely dilated. The right atrium is normal in size. Aortic Valve There is a normal trileaflet aortic valve. There is moderate calcification of the aortic valve. There is mild to moderate aortic valve stenosis. The peak aortic velocity is 3.20 m/s with a calculated peak gradient of 41 mmHg. The mean gradient is 22 mmHg. The aortic valve area is 1.32 cm2. There is trace (trivial) aortic valve regurgitation. Mitral Valve There is moderate mitral annular calcification. There is mild mitral valve regurgitation. There is no mitral valve stenosis. Pulmonic Valve The pulmonic valve was not well visualized. Tricuspid Valve Normal tricuspid valve structure. There is trace tricuspid valve regurgitation. The pulmonary artery systolic pressure is normal. Great Vessels There is mild dilatation of the ascending aorta measuring 3.80 cm. Venous The inferior vena cava is normal in size and collapses greater than 50% with inspiration. Pericardium/Pleural There is no evidence of pericardial effusion. Prior Study Comparison Changes noted compared to prior study dated: 08/03/2020. Aortic stenosis appears to be less severe than previously described. Could be an underestimate. Measurements 2D Linear Measurements IVSd: 1.25 0.6-0.9/0.6-1.0 cm LVIDd: 4.14 3.9-5.3/4.2-5.9 cm LVIDd Index: 2.20 2.4-3.2/2.2-3.1 cm/m2 LVIDs: 2.71 2.0-3.6 cm LVPWd: 1.28 0.7-1.1 cm Ao Root: 3.20 2.1-3.5 cm LA Diam: 5.50 2.7-3.8/3.0-4.0 cm LAIDs Index: 2.93 1.5-2.3 cm/m2 LV Mass: 234.81 67-162/88-224 g LV Mass Index: 124.90 43-95/49-115 g/m2 LVOT Diam: 2.10 3.0+(-)1.3 cm 2D Systolic Function EF 4C: 62.60 >55% EF 2C: 64.80 >55% EF BiP: 63.80 >55% Mitral Valve MV Pk E: 0.83 MV PK A: 1.11 MV Decel Time: 296.00 E/A: 0.70 PHT: 87.00 MVA PHT: 2.53 Decel [place]: 2.81 Aortic Valve AoV Pk Trey: 3.20 AoV Mn Trey: 2.23 AoV VTI: 0.69 AoV Pk Grad: 41.00 Aov Mn Grad: 22.00 AMBAR Cont.VTI: 1.32 AI Pk Trey: 4.04 AI [place]: 3.37 LVOT LVOT Pk Trey: 1.16 LVOT Mn Trey: 0.84 LVOT VTI: 0.26 LVOT Pk Grad: 5.00 LVOT Mn Grad: 3.00 LVOT Diam: 2.10 LVOT Area: 3.46 Diastolic Function MV Pk E: 0.83 MV Pk A: 1.11 E/A: 0.70 Tricuspid Valve TR Pk Trey: 2.45 TR Pk Grad: 24.00 RA Press: 3.00 RVSP: 27.00 Great Vessels Aorta Ao Root-2D: 3.20 2.0-3.7 cm Ao Asc: 3.80 2.1-3.4 cm Updated in Other Vendor System with Status of Final Koby Page MD electronically signed on 11/22/2020 6:07:28 PM with status of Final
== END ==
LOC: HO.CARD 13:56
PROVIDERS: PCP Internal Medicine; Visit Provider Internal Medicine
DX: I35.0 Nonrheumatic aortic (valve) stenosis (principal)
CPT/HCPCS: 93306

== ENCOUNTER → 2020-11-30 14:02 | Outpatient (BNVA) | payer MEDICARE, MEDICAID, SELFPAY | PROVIDERS: PCP Internal Medicine; Visit Provider Internal Medicine | DX: I50.32 Chronic diastolic (congestive) heart failure (principal); I35.0 Nonrheumatic aortic (valve) stenosis; I25.10 Atherosclerotic heart disease of native coronary artery without angina pectoris; I49.8 Other specified cardiac arrhythmias; I45.2 Bifascicular block; G47.33 Obstructive sleep apnea (adult) (pediatric); Z99.81 Dependence on supplemental oxygen | CPT/HCPCS: 99212 ==

== ENCOUNTER 2020-12-22 10:39 | Outpatient (REF) | payer MEDICARE, MEDICAID, SELFPAY ==
--- NOTE | ~2020-12-22 | XR_ITS ---
EXAMINATION: XR ABDOMEN KUB CLINICAL INDICATION: Abdominal pain, IBS, rule out obstruction. COMPARISON: September 28, [address] scan of June 25, 2020 TECHNIQUE: AP view of the abdomen. FINDINGS: No dilated loops of large or small bowel are evident. There is a large stool burden present. No pneumatosis intestinalis is appreciated. Postsurgical changes seen about the right lower lung. Patient status post cholecystectomy. There is degenerative disc disease of the lower lumbar spine. There is degenerative change of the sacroiliac joints bilaterally. Soft tissue calcification seen overlying the left iliac crest. XR/XR KUB IMPRESSION: Large stool burden.
[2020-12-22 11:56] LABS: MANUAL DIFF FLAG NO
[2020-12-22 12:00] LABS: Basophils Absolute Auto 0.1 X10*3/uL (0.0-0.2); Basophils Percent Auto 0.7 % (0-2); Eosinophils Absolute Auto 0.2 X10*3/uL (0.0-0.4); Eosinophils Percent Auto 2.1 % (0-4); Hematocrit 45.7 % (37-47); Hemoglobin 14.9 g/dl (12.0-16.0); Imm Gran Abs Auto 0.03 X10*3/uL (0.00-0.03); Imm Gran Pct Auto 0.3 % (0.0-0.4); Lymphocytes Absolute Auto 1.5 X10*3/uL (1.2-4.9); Lymphocytes Percent Auto 15.7 % (20-40); Mean Corpuscular HGB Conc 32.6 g/dl (31.0-35.0); Mean Corpuscular Hemoglobin 30.9 pg (27.0-33.0); Mean Corpuscular Volume 94.8 fL (80-98); Mean Platelet Volume 10.1 fL (9.4-12.3); Monocytes Absolute Auto 0.8 X10*3/uL (0.1-1.2); Monocytes Percent Auto 8.6 % (2-11); Neutrophils Absolute Auto 6.7 X10*3/uL (2.0-8.3); Neutrophils Percent Auto 72.6 % (45-73); Platelet Count 225 X10*3/uL (160-400); Red Blood Count 4.82 X10*6/uL (4.20-5.50); Red Cell Distribution Width 12.8 % (11.0-16.0); White Blood Count 9.2 X10*3/uL (4.8-10.8)
[2020-12-22 12:32] LABS: Alanine Aminotransferase 12 U/L (0-31); Alkaline Phosphatase 100 U/L (39-117); Anion Gap 11 (12-20); Aspartate Amino Transferase 15 U/L (5-31); Bilirubin Total 0.8 mg/dL (0.0-1.0); Blood Urea Nitrogen 12 mg/dL (9-16); C Reactive Protein 0.19 mg/dL (< or = 0.50); Calcium 9.2 mg/dL (8.4-10.2); Carbon Dioxide 31 mmol/L (22-29); Chloride 102 mmol/L (96-108); Estimated Glomerular Filt Rate > 60; Glucose Random 118 mg/dL (60-115); Potassium 3.8 mmol/L (3.3-5.1); Sodium 140 mmol/L (135-145); Total Protein 6.8 g/dL (6.5-8.0)
[2020-12-22 12:41] LABS: Free T4 (Free Thyroxine) 1.31 ng/dL (0.71-1.85); Thyroid Stimulating Hormone 0.13 uIU/mL (0.32-4.0)
[2020-12-22 12:51] LABS: Glucose Urine UA NEG (NEG); Leukocyte Esterase Urine TRACE (NEG); Nitrite Urine NEG (NEG); PH 7.5 (5.0-8.0); UACC Culture Trigger YES; Urine Blood NEG (NEG); Urine Ketones NEG (NEG); Urine Protein NEG (NEG-TRACE)
[2020-12-22 12:55] LABS: Appearance Urine CLEAR; Color Urine YELLOW
[2020-12-22 13:06] LABS: RBC Urine 0-2 /HPF (0); Squamous Epithelial Cell Urine TRACE /LPF
== END 2020-12-22 10:40 | disposition home or self-care (01) ==
LOC: HO.LAB 10:39
PROVIDERS: PCP Internal Medicine; Visit Provider Internal Medicine
DX: R10.9 Unspecified abdominal pain (principal); J44.9 Chronic obstructive pulmonary disease, unspecified; K58.9 Irritable bowel syndrome, unspecified; E03.9 Hypothyroidism, unspecified; I10 Essential (primary) hypertension
CPT/HCPCS: 36415; 74018; 80053; 81001; 81003; 84439; 84443; 85025; 86140; 87086

== ENCOUNTER → 2020-12-30 14:20 | Outpatient (BNVA) | payer MEDICARE, MEDICAID, SELFPAY | PROVIDERS: PCP Internal Medicine; Visit Provider Internal Medicine | DX: J44.9 Chronic obstructive pulmonary disease, unspecified (principal); G47.33 Obstructive sleep apnea (adult) (pediatric); J96.91 Respiratory failure, unspecified with hypoxia; J96.92 Respiratory failure, unspecified with hypercapnia; I50.32 Chronic diastolic (congestive) heart failure; F17.200 Nicotine dependence, unspecified, uncomplicated; Z99.81 Dependence on supplemental oxygen; Z79.51 Long term (current) use of inhaled steroids; Z71.6 Tobacco abuse counseling | CPT/HCPCS: 99212 ==

== ENCOUNTER → 2021-01-04 11:10 | Outpatient (BNVA) | payer MEDICARE, MEDICAID, SELFPAY | PROVIDERS: PCP Internal Medicine; Visit Provider Urology | CPT/HCPCS: Q3014 ==

== ENCOUNTER 2021-01-21 14:08 | Outpatient (REF) | payer MEDICARE, MEDICAID, SELFPAY ==
[2021-01-21 15:22] LABS: Alanine Aminotransferase 15 U/L (0-31); Albumin Level 4.2 g/dL (3.5-5.0); Alkaline Phosphatase 107 U/L (39-117); Anion Gap 12 (12-20); Aspartate Amino Transferase 19 U/L (5-31); Bilirubin Total 1.1 mg/dL (0.0-1.0); Blood Urea Nitrogen 22 mg/dL (9-16); Calcium 9.5 mg/dL (8.4-10.2); Carbon Dioxide 32 mmol/L (22-29); Chloride 104 mmol/L (96-108); Estimated Glomerular Filt Rate > 60; Glucose Random 122 mg/dL (60-115); Potassium 3.7 mmol/L (3.3-5.1); Sodium 144 mmol/L (135-145); Total Protein 7.2 g/dL (6.5-8.0)
== END 2021-01-21 14:09 | disposition home or self-care (01) ==
LOC: HO.LAB 14:08
PROVIDERS: PCP Internal Medicine; Visit Provider Internal Medicine
DX: J44.9 Chronic obstructive pulmonary disease, unspecified (principal); I50.9 Heart failure, unspecified; R60.0 Localized edema
CPT/HCPCS: 36415; 80053; 86140

== ENCOUNTER 2021-01-30 12:20 | Emergency (ER) | payer MEDICARE, MEDICAID, SELFPAY ==
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
[2021-01-30 12:33] VITALS: BP 133/98; BP 138/76; PULSE 100; PULSE 81; RESP 16; TEMP 37; O2SAT 100; O2SAT 92; BMI 34.7
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
[2021-01-30 14:05] VITALS: BP 176/92; PULSE 77; RESP 18; O2SAT 90
--- NOTE | 2021-01-30 14:30 | PC.NURSE ---
pt requesting adjustment of brief, pct dinorah at bedside to assist with repositioning pt and adjusting linens. pt awaiting ct scan clearance for c spine as well as awaiting xrays. [facility]ct[facility]
--- NOTE | 2021-01-30 14:46 | PC.NURSE ---
c spine cleared, removed from pt.
[2021-01-30] MEDS: Ketorolac Tromethamine 30 MG/ML VIAL IM (15:40)
[2021-01-30 16:36] VITALS: BP 158/86; PULSE 68; RESP 16; O2SAT 92
--- NOTE | 2021-01-30 17:17 | PC.NURSE ---
pt able to get over to commode w stand by assist. continues to complain of generalized aches and pains.
--- NOTE | 2021-01-30 18:50 | PC.NURSE ---
Per previous RN, pt awaiting ambulance transport home due to requiring O2.
== END 2021-01-30 20:24 | disposition home or self-care (01) ==
PROVIDERS: Emergency Provider Internal Medicine; PCP Internal Medicine
DX: S09.90XA Unspecified injury of head, initial encounter (principal); S00.03XA Contusion of scalp, initial encounter; Y04.2XXA Assault by strike against or bumped into by another person, initial encounter; Y93.9 Activity, unspecified; Y92.039 Unspecified place in apartment as the place of occurrence of the external cause; Y99.9 Unspecified external cause status; J44.9 Chronic obstructive pulmonary disease, unspecified; Z99.81 Dependence on supplemental oxygen
CPT/HCPCS: 70450; 71045; 72125; 73590; 96372; 99284; 99285; J1885

== ENCOUNTER → 2021-03-30 14:28 | Outpatient (BNVA) | payer MEDICARE, SELFPAY | PROVIDERS: PCP Internal Medicine; Visit Provider Internal Medicine | DX: J44.9 Chronic obstructive pulmonary disease, unspecified (principal); J96.91 Respiratory failure, unspecified with hypoxia; J96.92 Respiratory failure, unspecified with hypercapnia; G47.33 Obstructive sleep apnea (adult) (pediatric) | CPT/HCPCS: 99212 ==

== ENCOUNTER 2021-03-31 10:24 | Outpatient (REF) | payer MEDICARE, SELFPAY | END 2021-03-31 10:25 | disposition home or self-care (01) | LOC: HO.LNP 10:24 | PROVIDERS: PCP Internal Medicine | DX: N39.41 Urge incontinence (principal) | CPT/HCPCS: 87086; 87088; 87186; 99212 ==

== ENCOUNTER → 2021-04-22 11:11 | Outpatient (BNVA) | payer MEDICARE, SELFPAY | PROVIDERS: PCP Internal Medicine | DX: Z13.89 Encounter for screening for other disorder (principal) | CPT/HCPCS: Q3014 ==

== ENCOUNTER 2021-05-03 11:08 | Emergency (ER) | payer MEDICARE, MEDICAID, SELFPAY ==
--- NOTE | ~2021-05-03 | US_ITS ---
EXAMINATION: US VENOUS ULTRASOUND WITH DOPPLER LOWER EXTREMITY, LEFT CLINICAL INFORMATION: Swelling COMPARISON: Previous exam April 2019 TECHNIQUE: Ultrasound of the deep veins is performed from the hip to the calf with compression sonography and color and pulse Doppler assessment. Spectral analysis with color-flow imaging is performed. FINDINGS: There is normal venous compression and respiratory variation and augmented flow. The visualized common femoral vein, superficial femoral vein, profunda femoral vein, popliteal vein, and the trifurcation region shows no evidence of deep venous thrombosis. There is no significant popliteal fossa cyst. US/US venous duplex LE LT IMPRESSION: No DVT demonstrated in the left lower extremity.
--- NOTE | ~2021-05-03 | CT_ITS ---
EXAMINATION: CT HEAD WITHOUT CONTRAST CLINICAL INFORMATION: Headache. COMPARISON: None TECHNIQUE: Contiguous axial imaging was performed from the skull base to vertex without intravenous administration of contrast. This CT examination was performed using dose optimization techniques as appropriate, variously including the following: *Automated exposure control *Adjustment of mA and/or kV according to patient size (this includes techniques or standardized protocols for targeted exams where dose is matched to indication/reason for exam; i.e. extremities or head) *Use of iterative reconstruction technique DLP: 622 mGy-cm FINDINGS: There is no evidence of acute intracranial hemorrhage or territorial infarction. No abnormal mass effect or midline shift is seen. Flores to white matter differentiation is well preserved. No extra-axial fluid collections are identified. The ventricles are normal in size. There is no abnormal attenuation within the brain parenchyma. The osseous structures and soft tissues are normal. The mastoid air cells and visualized portions of the paranasal sinuses are well aerated. CT/CT head/brain wo con IMPRESSION: No acute intracranial process seen.
--- NOTE | 2021-05-03 11:13 | ED.WEAKNESS ---
HPI - Weakness General Chief complaint: General Medical Stated complaint: back pain Time Seen by Provider: 05/03/21 11:13 Source: patient Mode of arrival: EMS Limitations: no limitations History of Present Illness HPI Narrative: patient with headache and left leg swelling. Headaches have been getting worse over months. MD Complaint: generalized weakness Onset (ago): week(s) Location: L[facility] Related Data Home Medications Medication Instructions Recorded Confirmed atorvastatin 40 mg tablet 40 mg PO ONCE tab 08/19/20 12/30/20 diltiazem HCl 120 mg 120 mg PO Q12H cap 08/19/20 12/30/20 capsule,extended release 12 hr guaifenesin 600 mg tablet, 600 mg PO BID 08/30/20 12/30/20 extended release 12 hr ipratropium 0.5 mg-albuterol 3 mg 3 ml INHALATION Q6H PRN 08/30/20 12/30/20 (2.5 mg base)/3 mL nebulization soln tiotropium bromide 18 mcg capsule 1 cap INHALATION DAILY 08/30/20 12/30/20 with inhalation device clonazepam 0.5 mg tablet 0.5 mg PO BEDTIME tab 10/04/20 12/30/20 dicyclomine 10 mg capsule 10 mg PO BID PRN cap 10/04/20 12/30/20 levothyroxine 175 mcg tablet 175 mcg PO DAILY tab 10/04/20 12/30/20 omeprazole 20 mg capsule,delayed 20 mg PO DAILY cap 10/04/20 12/30/20 release vilazodone 40 mg tablet 40 mg PO DAILY tab 10/04/20 12/30/20 lactulose 10 gram/15 mL oral PO 10/25/20 12/30/20 solution buspirone 5 mg tablet mg PO 11/30/20 12/30/20 desvenlafaxine succinate 25 mg 25 mg PO tab 11/30/20 12/30/20 tablet,extended release 24 hr furosemide 20 mg tablet See Rx Instructions PO .COMPLEX 11/30/20 12/30/20 tab cyanocobalamin (vitamin B-12) 1,000 mcg IM 03/31/21 1,000 mcg/mL injection solution gabapentin 300 mg capsule 0 mg PO 03/31/21 melatonin 5 mg tablet 5 mg PO BEDTIME PRN 03/31/21 oxybutynin chloride 10 mg 10 mg PO DAILY 03/31/21 tablet,extended release 24 hr polyethylene glycol 3350 17 17 g PO DAILY 03/31/21 gram/dose oral powder Previous Rx's Medication Instructions Recorded albuterol sulfate 90 mcg/actuation 2 puff PO DAILY PRN #18 g 09/22/20 aerosol inhaler mirabegron 50 mg tablet,extended 50 mg PO BID 30 Days #60 tab 12/03/20 release 24 hr Breo Ellipta 200 mcg-25 mcg/dose 1 inh INHALATION DAILY #60 ea NS 01/05/21 powder for inhalation fesoterodine 8 mg tablet,extended 8 mg PO BID 90 Days #180 tab 01/26/21 release 24 hr oxybutynin chloride 15 mg 15 mg PO BID 90 Days #180 tab 03/04/21 tablet,extended release 24 hr vibegron 75 mg tablet 75 mg PO DAILY 30 Days #30 tab 03/18/21 levofloxacin 500 mg tablet 500 mg PO Q24H 10 Days #10 tab 03/31/21 phenazopyridine 100 mg tablet 100 mg PO TID #20 tab 04/08/21 Allergies Allergy/AdvReac Type Severity Reaction Status Date / Time morphine [Morphine] Allergy Unknown UNKNOWN Verified 04/22/21 11:13 Review of Systems Constitutional: Constitutional: Reports no additional constitutional complaints Eyes: Eyes: Reports no additional eye complaints ENT: Denies dizziness Cardiovascular: Cardiovascular: Reports no additional cardiovascular complaints Respiratory: Respiratory: Reports as per HPI Gastrointestinal: Gastrointestinal: Reports no additional gastrointestinal complaints Genitourinary: Genitourinary: Reports no additional female genitourinary complaints Musculoskeletal: Musculoskeletal: Reports no additional musculoskeletal complaints Integumentary/Breasts: Skin/Breast: Denies rash Neurologic: Reports system reviewed and no additional complaints, except as documented, Denies dizziness and Denies Sensory deficit (Neuro) Psychiatric: Psychiatric: Denies anxiety PMFSH Past Medical History Medical History Atherosclerotic cardiovascular disease Atrial arrhythmia Bifascicular block Chronic diastolic (congestive) heart failure COPD (chronic obstructive pulmonary disease) COPD (chronic obstructive pulmonary disease) Enuresis Nonrheumatic aortic (valve) stenosis On home oxygen therapy DHEERAJ (obstructive sleep apnea) Respiratory failure with hypoxia and hypercapnia Urge incontinence Surgical History History of umbilical hernia repair Family History Family History Father No problems noted. Mother No problems noted. Social History Social History Alcohol intake: never Advance Directives: No Advance Directives Information Provided: No Physical Exam Vital Signs: Vital Signs: Last Vital Signs Temp 97.2 F 05/03/21 11:16 Pulse 110 H 05/03/21 11:16 Resp 20 05/03/21 11:16 BP 131/65 05/03/21 11:16 Pulse Ox 94 05/03/21 11:16 Body Mass Index 36.6 Const: Other: chronically ill anxious Nutritional Appearance: obese Orientation/consciousness: oriented to person and patient oriented x3 Limitations: no limitations HENMT: Head: Yes normal to inspection Ears: external ears normal General nose exam: Normal external nose present Mouth: Normal oral and palatal mucosa present and oropharynx normal Throat: Yes posterior oropharynx normal Eyes: General: appearance normal, both eyes and all related structures Neck: Other: supple Neck: Yes normal visual inspection Chest: Chest palpation & inspection: normal inspection of the chest Resp: Other: diffuse crackles Cardio: Jugular venous distension: no JVD Rate: regular rate Rhythm: regular rhythm Heart sounds: S1 normal heart sound present and S2 normal heart sound present GI: Inspection: Yes normal to inspection Palpation (GI): Soft to palpation, nontender and No hepatosplenomegaly present Auscultation: normal bowel sounds : General: Yes no CVA tenderness Back/Spine/Pelvis: Back: no CVA tenderness Skin: General skin exam: no rashes or lesions noted Neuro: General: oriented to person and patient oriented x3 Cranial nerves: Yes CN's II-XII intact bilaterally Motor exam (neuro): 5/5 motor strength present throughout Sensory Exam: No Sensory deficit (Neuro) Extrem: Other: left leg much more swollen than the right leg Psych: Appearance: grossly normal Course Reevaluation(s) Reevaluation #1: patient with no active intracranial process or DVT will dc on NSAIDS Time: 13:58 MDM - Weakness Lab Data Result diagrams: 05/03/21 11:36 05/03/21 11:36 Labs: Lab Results 07/20/21 07/20/21 Range/Units 11:36 11:36 WBC 7.7 (4.8-10.8) X10*3/uL RBC 4.71 (4.20-5.50) X10*6/uL Hgb 14.5 (12.0-16.0) g/dl Hct 45.5 (37-47) % MCV 96.6 (80-98) fL MCH 30.8 (27.0-33.0) pg MCHC 31.9 (31.0-35.0) g/dl RDW 13.1 (11.0-16.0) % Plt Count 155 L D (160-400) X10*3/uL MPV 9.8 (9.4-12.3) fL Immature Gran % (Auto) 0.4 (0.0-0.4) % Neut % (Auto) 68.9 (45-73) % Lymph % (Auto) 17.6 L (20-40) % [place] % (Auto) 8.9 (2-11) % Eos % (Auto) 3.4 (0-4) % Baso % (Auto) 0.8 (0-2) % Lymph # (Auto) 1.4 (1.2-4.9) X10*3/uL [place] # (Auto) 0.7 (0.1-1.2) X10*3/uL Eos # (Auto) 0.3 (0.0-0.4) X10*3/uL Baso # (Auto) 0.1 (0.0-0.2) X10*3/uL Abs Immat Gran (auto) 0.03 (0.00-0.03) X10*3/uL Absolute Neuts (auto) 5.3 (2.0-8.3) X10*3/uL Absolute Nucleated RBC 0.000 (0.0-0.012) X10*3/uL Nucleated RBC % (auto) 0.0 (0.0-0.2) /100WBC Sodium 142 (135-145) mmol/L Potassium 3.8 (3.3-5.1) mmol/L Chloride 102 (96-108) mmol/L Carbon Dioxide 32 H (22-29) mmol/L Anion Gap 12 (12-20) BUN 15 (9-16) mg/dL Creatinine 0.80 (0.5-1.4) mg/dL Estim Creat Clear Calc 68.5 Estimated GFR > 60 Random Glucose 133 H (60-115) mg/dL Calcium 8.8 D (8.4-10.2) mg/dL Imaging Data left leg duplex: Radiologist's impression: IMPRESSION: No DVT demonstrated in the left lower extremity. CT scan - head: Radiologist's impression: IMPRESSION: No acute intracranial process seen. Discharge Plan Discharge Clinical Impression: Headache Qualifiers: Headache type: other headache syndrome Qualified Code(s): G44.89 - Other headache syndrome Edema Qualifiers: Edema type: unspecified Qualified Code(s): R60.9 - Edema, unspecified Patient Disposition: Home, Self-Care Instructions: General Headache (ED), Edema (ED) Prescriptions: No Action albuterol sulfate 90 mcg/actuation HFA aerosol inhaler 2 puff PO DAILY PRN (Reason: for dyspnea) Qty: 18 RF: 3 Myrbetriq 50 mg tablet extended release 24 hr 50 mg PO BID 30 Days Qty: 60 RF: 6 Breo Ellipta 200-25 mcg/dose blister with device 1 inh inhalation DAILY Qty: 60 RF: 3 Toviaz 8 mg tablet extended release 24 hr 8 mg PO BID 90 Days Qty: 180 RF: 2 oxybutynin chloride 15 mg tablet extended release 24 hr 15 mg PO BID 90 Days Qty: 180 RF: 3 Gemtesa 75 mg tablet 75 mg PO DAILY 30 Days Qty: 30 RF: 6 phenazopyridine 100 mg tablet 100 mg PO TID Qty: 20 RF: 0 lactulose 10 gram/15 mL solution PO RF: 0 desvenlafaxine succinate 25 mg tablet extended release 24 hr 25 mg PO RF: 0 buspirone 5 mg tablet PO RF: 0 guaifenesin [Mucinex] 600 mg tablet extended release 12hr 600 mg PO BID RF: 0 Spiriva with HandiHaler 18 mcg capsule, w/inhalation device 1 cap inhalation DAILY RF: 0 ipratropium-albuterol 0.5 mg-3 mg(2.5 mg base)/3 mL solution for nebulization 3 ml inhalation Q6H PRNRF: 0 diltiazem HCl 120 mg capsule,extended release 12 hr 120 mg PO Q12H RF: 0 atorvastatin 40 mg tablet 40 mg PO ONCE RF: 0 vilazodone 40 mg tablet 40 mg PO DAILY RF: 0 omeprazole 20 mg capsule,delayed release(DR/EC) 20 mg PO DAILY RF: 0 levothyroxine 175 mcg tablet 175 mcg PO DAILY RF: 0 dicyclomine 10 mg capsule 10 mg PO BID PRNRF: 0 clonazepam 0.5 mg tablet 0.5 mg PO BEDTIME RF: 0 furosemide 20 mg tablet See Rx Instructions PO .COMPLEX RF: 0 levofloxacin 500 mg tablet 500 mg PO Q24H 10 Days Qty: 10 RF: 0 Referrals: Danny Lorenzana MD [Primary Care Provider] - 2 days
[2021-05-03 11:16] VITALS: BP 131/65; PULSE 110; RESP 20; TEMP 36.2; O2SAT 94; BMI 36.6
[2021-05-03 11:51] LABS: MANUAL DIFF FLAG NO
[2021-05-03 11:55] LABS: Basophils Absolute Auto 0.1 X10*3/uL (0.0-0.2); Basophils Percent Auto 0.8 % (0-2); Eosinophils Absolute Auto 0.3 X10*3/uL (0.0-0.4); Eosinophils Percent Auto 3.4 % (0-4); Hematocrit 45.5 % (37-47); Hemoglobin 14.5 g/dl (12.0-16.0); Imm Gran Abs Auto 0.03 X10*3/uL (0.00-0.03); Imm Gran Pct Auto 0.4 % (0.0-0.4); Lymphocytes Absolute Auto 1.4 X10*3/uL (1.2-4.9); Lymphocytes Percent Auto 17.6 % (20-40); Mean Corpuscular HGB Conc 31.9 g/dl (31.0-35.0); Mean Corpuscular Hemoglobin 30.8 pg (27.0-33.0); Mean Corpuscular Volume 96.6 fL (80-98); Mean Platelet Volume 9.8 fL (9.4-12.3); Monocytes Absolute Auto 0.7 X10*3/uL (0.1-1.2); Monocytes Percent Auto 8.9 % (2-11); Neutrophils Absolute Auto 5.3 X10*3/uL (2.0-8.3); Neutrophils Percent Auto 68.9 % (45-73); Platelet Count 155 X10*3/uL (160-400); Red Blood Count 4.71 X10*6/uL (4.20-5.50); Red Cell Distribution Width 13.1 % (11.0-16.0); White Blood Count 7.7 X10*3/uL (4.8-10.8)
[2021-05-03 12:13] LABS: Anion Gap 12 (12-20); Blood Urea Nitrogen 15 mg/dL (9-16); Calcium 8.8 mg/dL (8.4-10.2); Carbon Dioxide 32 mmol/L (22-29); Chloride 102 mmol/L (96-108); Creatinine Clr Calc Pharmacy 68.5; Estimated Glomerular Filt Rate > 60; Glucose Random 133 mg/dL (60-115); Potassium 3.8 mmol/L (3.3-5.1); Sodium 142 mmol/L (135-145)
[2021-05-03] MEDS: Ketorolac Tromethamine 60 MG/2 ML VIAL IM (13:31)
== END 2021-05-03 14:09 | disposition home or self-care (01) ==
PROVIDERS: Emergency Provider Emergency Medicine; PCP Internal Medicine
DX: G44.89 Other headache syndrome (principal); R60.0 Localized edema; I50.32 Chronic diastolic (congestive) heart failure; J44.9 Chronic obstructive pulmonary disease, unspecified; J96.91 Respiratory failure, unspecified with hypoxia; J96.92 Respiratory failure, unspecified with hypercapnia; Z99.81 Dependence on supplemental oxygen; Z79.899 Other long term (current) drug therapy
CPT/HCPCS: 36415; 70450; 80048; 85025; 93971; 96372; 99283; 99284; J1885

== ENCOUNTER → 2021-05-03 14:14 | Outpatient (REF) | payer MEDICARE, MEDICAID, SELFPAY ==
--- NOTE | 2021-05-03 14:19 | CA_ITS ---
Transthoracic Echocardiogram Patient (Last, First, Middle): Amanda Maradiaga L Gender: Female Date of : 1950 Age: 71 Procedure Date: 05/03/2021 Procedure Type: Transthoracic Echocardiogram Location: OP Height: 157.48 cm Weight: 90.72 kg BSA: 1.91 m2 Heart Rate: bpm BP: 132 / 83 mmHg Screw Machine Tender: OPAL Referring MD: Koby Page MD Cleaner Greaser: Rodrigo Young MD Symptoms: I35.0 - Nonrheumatic aortic (valve) stenosis Study Quality: Fair ECG Rhythm: Sinus Conclusions: - 1. Normal LV systolic function with severe LVH with impaired relaxation filling pattern 2. Severely dilated left atrium 3. Moderate to severe aortic stenosis 4. Mild mitral regurgitation 5. Normal RV systolic pressure 6. No pericardial effusion Findings Left Ventricle Normal left ventricular size and systolic function. There is severely increased left ventricular wall thickness. The visually estimated ejection fraction is between 60-65%. Spectral Doppler is indicative of an impaired relaxation filling pattern. E/E prime ratio is between 8 and 15 consistent with indeterminate filling pressures. Right Ventricle Normal right ventricular cavity size. Atria The left atrium is severely dilated. Interatrial shunt cannot be excluded. The right atrium is mildly dilated. Aortic Valve There is moderate calcification of the aortic valve. There is mild thickening of the aortic valve. There is moderate to severe aortic valve stenosis. The peak aortic gradient is 43 mmHg.The mean gradient is 25 mmHg. The aortic valve area is 1.18 cm2. There is no aortic valve regurgitation. Mitral Valve There is mild anterior and moderate posterior mitral leaflet thickening. There is mild mitral annular calcification. There is mild mitral valve regurgitation. There is no mitral valve stenosis. Tricuspid Valve Likely normal tricuspid valve structure and function. There is mild tricuspid valve regurgitation. The right ventricular systolic pressure is normal. The right ventricular systolic pressure is 34 mmHg. Normal right atrial pressure. There is no evidence of pulmonary hypertension. Great Vessels All visible segments of the aorta are normal in size. The pulmonary artery was not well visualized. Venous The inferior vena cava is normal in size and collapses greater than 50% with inspiration. Pericardium/Pleural There is no evidence of pericardial effusion. Prior Study Comparison Changes noted compared to prior study dated: 11/22/2020. Aortic stenosis severity is more pronounced Measurements 2D Linear Measurements IVSd: 1.62 0.6-0.9/0.6-1.0 cm LVIDd: 4.84 3.9-5.3/4.2-5.9 cm LVIDd Index: 2.53 2.4-3.2/2.2-3.1 cm/m2 LVIDs: 2.82 2.0-3.6 cm LVPWd: 1.58 0.7-1.1 cm LA Diam: 5.50 2.7-3.8/3.0-4.0 cm LAIDs Index: 2.88 1.5-2.3 cm/m2 LV Mass: 422.59 67-162/88-224 g LV Mass Index: 221.25 43-95/49-115 g/m2 LVOT Diam: 2.00 3.0+(-)1.3 cm 2D Systolic Function EF 4C: 68.80 >55% Mitral Valve MV Pk E: 1.03 MV PK A: 1.13 MV Decel Time: 192.00 E/A: 0.90 E'Lateral: 4.57 E'Medial: 4.24 E/E' Med: 24.30 E/E' Lat: 22.50 PHT: 56.00 MVA PHT: 3.93 Decel Emanuel: 5.37 Aortic Valve AoV Pk Trey: 3.27 AoV Mn Trey: 2.30 AoV VTI: 0.73 AoV Pk Grad: 43.00 Aov Mn Grad: 25.00 AMBAR Cont.VTI: 1.18 LVOT LVOT Pk Trey: 1.21 LVOT Mn Trey: 0.86 LVOT VTI: 0.28 LVOT Pk Grad: 6.00 LVOT Mn Grad: 3.00 LVOT Diam: 2.00 LVOT Area: 3.14 Diastolic Function MV Pk E: 1.03 MV Pk A: 1.13 E/A: 0.90 E'Medial: 4.24 E/E' Med: 24.30 E' Laterial: 4.57 E/E' Lat: 22.50 Right Ventricle TAPSE (mm): 2.19 Tricuspid Valve TR Pk Trey: 2.77 TR Pk Grad: 31.00 RA Press: 3.00 RVSP: 34.00 Great Vessels Aorta Ao Asc: 3.80 2.1-3.4 cm Updated in Other Vendor System with Status of Final Rodrigo Hector MD electronically signed on 05/04/2021 4:01:56 PM with status of Final
== END ==
LOC: HO.CARD 14:14
PROVIDERS: Visit Provider Internal Medicine
DX: I35.0 Nonrheumatic aortic (valve) stenosis (principal)
CPT/HCPCS: 93306

== ENCOUNTER 2021-05-12 11:30 | Outpatient (REF) | payer MEDICARE, MEDICAID, SELFPAY ==
[2021-05-12 11:35] LABS: MANUAL DIFF FLAG NO
[2021-05-12 11:49] LABS: Basophils Absolute Auto 0.1 X10*3/uL (0.0-0.2); Basophils Percent Auto 0.6 % (0-2); Eosinophils Absolute Auto 0.2 X10*3/uL (0.0-0.4); Eosinophils Percent Auto 2.3 % (0-4); Imm Gran Abs Auto 0.03 X10*3/uL (0.00-0.03); Imm Gran Pct Auto 0.3 % (0.0-0.4); Lymphocytes Absolute Auto 1.4 X10*3/uL (1.2-4.9); Lymphocytes Percent Auto 14.5 % (20-40); Mean Corpuscular HGB Conc 31.3 g/dl (31.0-35.0); Mean Corpuscular Hemoglobin 30.1 pg (27.0-33.0); Mean Corpuscular Volume 96.4 fL (80-98); Monocytes Absolute Auto 0.8 X10*3/uL (0.1-1.2); Monocytes Percent Auto 8.6 % (2-11); Neutrophils Absolute Auto 7.2 X10*3/uL (2.0-8.3); Neutrophils Percent Auto 73.7 % (45-73); Platelet Count 202 X10*3/uL (160-400); Red Blood Count 4.98 X10*6/uL (4.20-5.50); White Blood Count 9.8 X10*3/uL (4.8-10.8)
[2021-05-12 12:08] LABS: Glucose Urine UA NEG (NEG); Leukocyte Esterase Urine TRACE (NEG); Nitrite Urine NEG (NEG); PH 6.5 (5.0-8.0); Urine Blood NEG (NEG); Urine Ketones NEG (NEG); Urine Protein NEG (NEG-TRACE)
[2021-05-12 12:18] LABS: Appearance Urine CLEAR; Color Urine YELLOW
[2021-05-12 12:24] LABS: Alanine Aminotransferase 12 U/L (0-31); Alkaline Phosphatase 97 U/L (39-117); Anion Gap 14 (12-20); Aspartate Amino Transferase 18 U/L (5-31); Bilirubin Total 0.9 mg/dL (0.0-1.0); Blood Urea Nitrogen 14 mg/dL (9-16); Calcium 9.4 mg/dL (8.4-10.2); Carbon Dioxide 33 mmol/L (22-29); Chloride 102 mmol/L (96-108); Estimated Glomerular Filt Rate > 60; Glucose Random 106 mg/dL (60-115); Sodium 145 mmol/L (135-145); Total Protein 6.9 g/dL (6.5-8.0)
[2021-05-12 12:47] LABS: Amorphous Sediment Urine 3+ /LPF; Bacteria Urine 1+ /LPF; Free T4 (Free Thyroxine) 1.25 ng/dL (0.71-1.85); RBC Urine 0 /HPF (0); Squamous Epithelial Cell Urine TRACE /LPF; WBC Urine 0-2 /HPF (0-4)
== END 2021-05-12 11:31 | disposition home or self-care (01) ==
LOC: HO.LNP 11:30
PROVIDERS: Visit Provider Internal Medicine
DX: J44.9 Chronic obstructive pulmonary disease, unspecified (principal); R60.0 Localized edema; E03.9 Hypothyroidism, unspecified; I10 Essential (primary) hypertension
CPT/HCPCS: 80053; 81001; 81003; 84439; 84443; 85025; 87086

== ENCOUNTER 2021-05-25 12:33 | Inpatient (IN) | payer MEDICARE, MEDICAID, SELFPAY ==
[2021-05-25] VITALS (19 sets, daily range): BP systolic 131–174; BP diastolic 57–88; PULSE 69–114; RESP 13–23; TEMP 36.8–37.1; O2SAT 84–94; BMI 41.5; BMI 36.8
--- NOTE | ~2021-05-25 | US_ITS ---
EXAMINATION: US VENOUS ULTRASOUND WITH DOPPLER LOWER EXTREMITY, BILATERAL CLINICAL INFORMATION: Bilateral lower extremity edema COMPARISON: Left leg DVT study 05/03/2021, bilateral DVT study 04/30/2019 TECHNIQUE: Ultrasound of the deep veins is performed from the hip to the calf with compression sonography and color and pulse Doppler assessment. Spectral analysis with color-flow imaging is performed. FINDINGS: RIGHT: There is normal venous compression and respiratory variation and augmented flow. The visualized common femoral vein, superficial femoral vein, profunda femoral vein, popliteal vein, and the trifurcation region shows no evidence of deep venous thrombosis. There is no significant popliteal fossa cyst. LEFT: There is normal venous compression and respiratory variation and augmented flow. The visualized common femoral vein, superficial femoral vein, profunda femoral vein, popliteal vein, and the trifurcation region shows no evidence of deep venous thrombosis. There is no significant popliteal fossa cyst. If the patient's symptoms persist, followup ultrasound in 5 days 7 days might be of value to exclude proximal propagation from a non-visualized calf vein. US/US venous duplex LE BI IMPRESSION: No DVT demonstrated in either lower extremity.
--- NOTE | ~2021-05-25 | XR_ITS ---
EXAMINATION: XR CHEST CLINICAL INFORMATION: Shortness of breath COMPARISON: January 30, 2021 TECHNIQUE: AP portable view of the chest was obtained. FINDINGS: Suture line is seen within the right apex. Екатерина are seen about the right mediastinum. Stable changes about the right lower lung are present as well as some calcified plaques. There is some pulmonary vascular congestion present without wade pulmonary edema. There is obscuration of the left heart border which may be related to disease within the lingula and appears to involve a larger area than I would expect for fat pad. Evaluation is limited due to rotation. No pneumothorax or significant pleural effusion. There appears be old left humeral head fracture. Status post resection of the distal left clavicle. XR/XR chest 1V IMPRESSION: Pulmonary vascular prominence without wade edema. Question lingula disease. Stable postoperative change right lung with calcified plaques.
--- NOTE | ~2021-05-25 | CT_ITS ---
EXAMINATION: CT HEAD WITHOUT CONTRAST CLINICAL INFORMATION: AMS, falls and headaches. COMPARISON: CT brain 05/03/2021. TECHNIQUE: Contiguous axial imaging was performed from the skull base to vertex without intravenous administration of contrast. This CT examination was performed using dose optimization techniques as appropriate, variously including the following: *Automated exposure control *Adjustment of mA and/or kV according to patient size (this includes techniques or standardized protocols for targeted exams where dose is matched to indication/reason for exam; i.e. extremities or head) *Use of iterative reconstruction technique DLP: 1265 mGy-cm FINDINGS: There is no evidence of acute intracranial hemorrhage or territorial infarction. No abnormal mass effect or midline shift is seen. Flores to white matter differentiation is well preserved. No extra-axial fluid collections are identified. The ventricles are normal in size. There is no abnormal attenuation within the brain parenchyma. The osseous structures and soft tissues are normal. The mastoid air cells and visualized portions of the paranasal sinuses are well aerated. CT/CT head/brain wo con IMPRESSION: No acute intracranial process seen..
--- NOTE | ~2021-05-25 | CT_ITS ---
EXAMINATION: CT CHEST WITHOUT CONTRAST CLINICAL INFORMATION: Respiratory failure. Shortness of breath. COMPARISON: Chest x-ray of same day and CT chest of November 20, 2018 TECHNIQUE: Multidetector volumetric CT imaging of the chest was done. Axial MIP volume rendering provided. Sagittal and coronal reformatted images were obtained. This CT examination was performed using dose optimization techniques as appropriate, variously including the following: *Automated exposure control *Adjustment of mA and/or kV according to patient size (this includes techniques or standardized protocols for targeted exams where dose is matched to indication/reason for exam; i.e. extremities or head) *Use of iterative reconstruction technique DLP: 544 mGy-cm FINDINGS: There is motion artifact present. LUNGS: There is chronic pleural-parenchymal disease seen within the right base with patient status post right apical surgery. Superimposed upon this chronic disease there is some new airspace disease within the right lower lobe with some air bronchograms which may be related to atelectasis or pneumonia. There is interstitial thickening present more prominent within the left lung with regions of groundglass opacity within the upper lobe as well as left lower lobe airspace disease which again may be related to atelectasis or pneumonitis. With disappearance pulmonary vascular congestion of cardiogenic or noncardiogenic etiology could also be considered. MEDIASTINUM: There is cardiomegaly. Coronary artery and aortic valve calcification present. There is an ascending thoracic aortic aneurysm measuring approximately 4.5 cm in maximum dimension. There is what appears be nonocclusive aortic arch calcified plaque. Its difficult to determine without IV contrast but it appears there may be bilateral hilar lymphadenopathy. There is a 1.3 cm right precarinal lymph node. PLEURA: There is chronic pleural-parenchymal disease seen at the right base with calcified thickened pleura. There appears to be a trace left pleural effusion. AXILLA: No lymphadenopathy. UPPER ABDOMEN: Calcified plaque at origin of visceral vessels. OSSEOUS STRUCTURES: No suspicious destructive bony lesions. Bilateral shoulder degenerative joint disease. Acromioclavicular joint degenerative change bilaterally. Multilevel degenerative disc disease is seen. CT/CT chest wo con IMPRESSION: Development of bilateral lower lobe airspace disease with diffuse interstitial prominence and with some groundglass opacity in the left upper lobe which may be related to atelectasis, pneumonitis, or pulmonary edema of cardiogenic or noncardiogenic etiology. Status post previous right lung surgery with chronic pleural parenchymal disease with calcified plaque. Cardiomegaly. 4.5 cm ascending thoracic aortic aneurysm. Mediastinal and question hilar lymphadenopathy.
--- NOTE | 2021-05-25 13:00 | ECG_ITS ---
Test Reason : COPD Blood Pressure : / mmHG Vent. Rate : 090 BPM Atrial Rate : 090 BPM P-R Int : 164 ms QRS Dur : 154 ms QT Int : 426 ms P-R-T Axes : 071 -50 016 degrees QTc Int : 521 ms Sinus rhythm with Premature atrial complexes Right bundle branch block Left anterior fascicular block Bifascicular block Minimal voltage criteria for LVH, may be normal variant Abnormal ECG When compared with ECG of 29-OCT-2020 14:46, Premature atrial complexes are now Present QT has lengthened Referred By: Iman Dixon Electronically Signed By:ARMANDO KENNEDY MD
[2021-05-25 13:15] LABS: MANUAL DIFF FLAG NO
[2021-05-25 13:21] LABS: ABG Base Excess 12.2 mmol/L; ABG HCO3 43 mmol/L (22-26); ABG pCO2 88 mmHg (32-45); ABG pCO2 TC 87 mmHg (32-45); ABG pH 7.29 (7.35-7.45); ABG pH TC 7.29 (7.35-7.45); ABG pO2 66 mmHg (83-108); ABG pO2 TC 65 (83-108)
[2021-05-25] MEDS: methylPREDNISolone Sod Succ 125 MG/2 ML VIAL IVPUSH (13:31)
--- NOTE | 2021-05-25 13:31 | PC.NURSE ---
SPO2 DROPPED TO 79% ON 5L, PLACED ON VENTURI AT FIO2 50, BRINGING HER TO 87% SPO2. NOW ON BIPAP WITH RT. PT REMAINS DROWSY, EVEN BUT LABOURED RESP. #20 IN R AC
[2021-05-25 13:32] LABS: Basophils Percent Auto 0.5 % (0-2); Eosinophils Absolute Auto 0.2 X10*3/uL (0.0-0.4); Eosinophils Percent Auto 2.6 % (0-4); Hemoglobin 14.2 g/dl (12.0-16.0); Imm Gran Abs Auto 0.03 X10*3/uL (0.00-0.03); Imm Gran Pct Auto 0.4 % (0.0-0.4); Lymphocytes Absolute Auto 1.4 X10*3/uL (1.2-4.9); Lymphocytes Percent Auto 17.4 % (20-40); Mean Corpuscular HGB Conc 30.9 g/dl (31.0-35.0); Mean Corpuscular Hemoglobin 30.4 pg (27.0-33.0); Mean Corpuscular Volume 98.5 fL (80-98); Mean Platelet Volume 9.7 fL (9.4-12.3); Monocytes Absolute Auto 0.8 X10*3/uL (0.1-1.2); Monocytes Percent Auto 9.8 % (2-11); Neutrophils Absolute Auto 5.6 X10*3/uL (2.0-8.3); Neutrophils Percent Auto 69.3 % (45-73); Platelet Count 189 X10*3/uL (160-400); Red Blood Count 4.67 X10*6/uL (4.20-5.50); Red Cell Distribution Width 13.8 % (11.0-16.0)
[2021-05-25] MEDS: Albuterol/Iprat 2.5/0.5MG 3 ML AMPUL.NEB INHALE (13:38)
--- NOTE | 2021-05-25 13:42 | ED.SOB ---
HPI - SOB/Dyspnea General Chief Complaint: Dyspnea Stated Complaint: DIFFICULTY BREATHING Time Seen by Provider: 05/25/21 12:50 Source: EMS and old records reviewed Mode of arrival: EMS Limitations: altered mental status History of Present Illness HPI Narrative: 71 y/o female with history of obesity, COPD on 2L NC, aortic stenosis, DHEERAJ noncompliant with CPAP, heavy cigarette smoker, HFpEF who presents to the ER from home via EMS with SOB and lethargy. History is limited as patient arrives to the ER lethargic. Per EMS patient has been using her home nebulizer with no relief in her SOB. She reports feeling weak and having several falls at home recently. She c/o headache. She cannot elaborate on any symptoms due to lethargy. She reports her legs have been swollen for a long time. MD elicited complaint: shortness of breath Pertinent past history: COPD Onset (ago): day(s) Timing: constant Severity: severe Exacerbating factors: nothing Relieving factors: nothing Known history of: COPD Treatment prior to arrival: oxygen and bronchodilator Related Data Home oxygen amount: 2 liters Home Medications Medication Instructions Recorded Confirmed atorvastatin 40 mg tablet 40 mg PO DAILY tab 08/19/20 05/25/21 diltiazem HCl 120 mg 120 mg PO BID cap 08/19/20 05/25/21 capsule,extended release 12 hr guaifenesin 600 mg tablet, 600 mg PO BID 08/30/20 05/25/21 extended release 12 hr (Mucinex) ipratropium 0.5 mg-albuterol 3 mg 3 ml INHALATION Q6H PRN 08/30/20 05/25/21 (2.5 mg base)/3 mL nebulization soln tiotropium bromide 18 mcg capsule 1 cap INHALATION DAILY 08/30/20 05/25/21 with inhalation device (Spiriva with HandiHaler) clonazepam 0.5 mg tablet 0.25 mg PO BEDTIME PRN tab 10/04/20 05/25/21 dicyclomine 10 mg capsule 10 mg PO TIDWM cap 10/04/20 05/25/21 levothyroxine 175 mcg tablet 175 mcg PO DAILY@0630 tab 10/04/20 05/25/21 omeprazole 20 mg capsule,delayed 20 mg PO DAILY cap 10/04/20 05/25/21 release vilazodone 40 mg tablet 40 mg PO DAILY tab 10/04/20 05/25/21 lactulose 10 gram/15 mL oral 15 ml PO BID PRN 10/25/20 05/25/21 solution furosemide 20 mg tablet 60 mg PO DAILY tab 11/30/20 05/25/21 cyanocobalamin (vitamin B-12) 1,000 mcg IM Q30D 03/31/21 05/25/21 1,000 mcg/mL injection solution gabapentin 300 mg capsule 300 mg PO BEDTIME 03/31/21 05/25/21 melatonin 5 mg tablet 5 mg PO BEDTIME PRN 03/31/21 05/25/21 acetaminophen 325 mg tablet 650 mg PO Q4H PRN 05/25/21 05/25/21 aspirin 81 mg chewable tablet 81 mg PO DAILY 05/25/21 05/25/21 buspirone 7.5 mg tablet 1 tab PO BID 05/25/21 05/25/21 fluticasone furoate 200 1 inh INHALATION BEDTIME 05/25/21 05/25/21 mcg-vilanterol 25 mcg/dose inhalation powder (Breo Ellipta) oxybutynin chloride 15 mg 15 mg PO BID 05/25/21 05/25/21 tablet,extended release 24 hr simethicone 80 mg chewable tablet 80 mg PO BEDTIME 05/25/21 05/25/21 Previous Rx's Medication Instructions Recorded albuterol sulfate 90 mcg/actuation 2 puff PO DAILY PRN #18 g 09/22/20 aerosol inhaler mirabegron 50 mg tablet,extended 50 mg PO BID 30 Days #60 tab 12/03/20 release 24 hr (Myrbetriq) Allergies Allergy/AdvReac Type Severity Reaction Status Date / Time morphine [Morphine] Allergy Unknown UNKNOWN Verified 05/25/21 12:58 Review of Systems Review of Systems: Yes Unobtainable due to mental status [facility] Past Medical History Attestation statement: The following information was validated with the patient. Medical History Atherosclerotic cardiovascular disease Atrial arrhythmia Bifascicular block Chronic diastolic (congestive) heart failure COPD (chronic obstructive pulmonary disease) COPD (chronic obstructive pulmonary disease) Enuresis Nonrheumatic aortic (valve) stenosis On home oxygen therapy DHEERAJ (obstructive sleep apnea) Respiratory failure with hypoxia and hypercapnia Urge incontinence Surgical History History of umbilical hernia repair Family History Family History Father No problems noted. Mother No problems noted. Social History Social History Alcohol intake: never Patient Tobacco Use Status: Current everyday Tobacco user Use of substances other than those prescribed or required for medical reasons: No Advance Directives: Yes Advance Directives Information Provided: No Advance Directives on File: No Physical Exam Vital Signs: Vital Signs: Last Vital Signs Temp 98.2 F 05/25/21 12:48 Pulse 83 05/25/21 17:37 Resp 13 05/25/21 17:37 BP 147/72 H 05/25/21 17:37 Pulse Ox 90 L 05/25/21 17:37 Oxygen Flow Rate 5 05/25/21 12:48 Body Mass Index 41.5 Appearance: Lethargic, obese, elderly woman laying in the bed, head slumped forward. Eyes: Pupils equal, round and reactive to light. ENT: Pharynx normal. Neck: Normal inspection. Neck supple. CVS: Normal heart rate and rhythm. Pulses normal. Respiratory: No respiratory distress. Breath sounds diminished throughout with poor air entry. Abdomen: Obese, Soft and nontender. +BS x4 Skin: Skin warm and dry. Normal skin color. Normal skin turgor. No rashes. Extremities: 4+ nilateral pitting lower extremity edema. Neuro: lethargic, arouses to voice but quickly falls back asleep, briefly follows commands and moves all 4 extremities. Course Course Course Narrative: 71 y/o female with history of O2 dependent COPD, active smoker, CHF presenting with AMS and SOB. Hypoxic requiring 5L NC to maintain SpO2 88% or greater. She is lethargic with end tital 50-60s. ABG pending. Will require rescue BiPAP. CXR, EKG and labs ordered. Reevaluation(s) Reevaluation #1: ABG showing acute on chronic hypoxic and hypercarbic respiratory failure. Placed on rescue BiPAP - AVAPS 30% with adequate tidal volumes. Duoneb being given inline. CXR with pulmonary vascular congestion, possible lingular infiltrate. Will start abx for possible CAP as well as lasix, BNP 500s with pitting edema of LE. Will need CT head for AMS, c/o headache and reports of multiple falls at home. She is not on anticoagulation. Will get dry CT chest as well to better assess lingular process. Reevaluation #2: Utox positive for FENTANYL. She is not prescribed any opiates. She denies drug use, specifically fentanyl use. Will give dose of Narcan to see if her mental status improves. After 3 hours of being on BiPAP mental status is slightly improved. Easily arouses to voice and answers simple questions. Placed on NC for transport to CT scan. Reevaluation #3: No response to IV Narcan. Paced back on BiPAP after CT scan for lethargy. Additional Reevaluation(s): CT chest : Development of bilateral lower lobe airspace disease with diffuse interstitial prominence and with some groundglass opacity in the left upper lobe which may be related to atelectasis, pneumonitis, or pulmonary edema of cardiogenic or noncardiogenic etiology. Status post previous right lung surgery with chronic pleural parenchymal disease with calcified plaque. Trialed off of BiPAP and mental status remains lethargic with end tidal up into the 70's. Spoke with Dr. Ferrell who will admit to ICU for rescue BiPAP. To place back on BiPAP now. Consultations Consultation #1: ICU Dr. Ferrell MDM - SOB/Dyspnea Lab Data Attestation: I reviewed the patient's lab results. Result diagrams: 05/25/21 13:08 05/25/21 13:08 Labs: Lab Results 05/25/21 05/25/21 05/25/21 Range/Units 13:08 13:08 13:08 WBC 8.0 (4.8-10.8) X10*3/uL RBC 4.67 (4.20-5.50) X10*6/uL Hgb 14.2 (12.0-16.0) g/dl Hct 46.0 (37-47) % MCV 98.5 H (80-98) fL MCH 30.4 (27.0-33.0) pg MCHC 30.9 L (31.0-35.0) g/dl RDW 13.8 (11.0-16.0) % Plt Count 189 (160-400) X10*3/uL MPV 9.7 (9.4-12.3) fL Immature Gran % (Auto) 0.4 (0.0-0.4) % Neut % (Auto) 69.3 (45-73) % Lymph % (Auto) 17.4 L (20-40) % Shoshone % (Auto) 9.8 (2-11) % Eos % (Auto) 2.6 (0-4) % Baso % (Auto) 0.5 (0-2) % Lymph # (Auto) 1.4 (1.2-4.9) X10*3/uL Shoshone # (Auto) 0.8 (0.1-1.2) X10*3/uL Eos # (Auto) 0.2 (0.0-0.4) X10*3/uL Baso # (Auto) 0.0 (0.0-0.2) X10*3/uL Abs Immat Gran (auto) 0.03 (0.00-0.03) X10*3/uL Absolute Neuts (auto) 5.6 (2.0-8.3) X10*3/uL Absolute Nucleated RBC 0.000 (0.0-0.012) X10*3/uL Nucleated RBC % (auto) 0.0 (0.0-0.2) /100WBC O2 Saturation % ABG pH at Pt Temp (7.35-7.45) ABG pH (Temp Correct) (7.35-7.45) ABG pCO2 at Pt Temp (32-45) mmHg ABG pCO2 (Temp Corrct (32-45) mmHg ABG pO2 at Pt Temp (83-108) mmHg ABG pO2 (Temp Correct (83-108) ABG HCO3 (22-26) mmol/L ABG Base Excess (Actual) mmol/L Sodium 144 (135-145) mmol/L Potassium 3.9 (3.3-5.1) mmol/L Chloride 99 (96-108) mmol/L Carbon Dioxide 39 H (22-29) mmol/L Anion Gap 10 L (12-20) BUN 16 (9-16) mg/dL Creatinine 0.76 (0.5-1.4) mg/dL Estim Creat Clear Calc 77.4 Estimated GFR > 60 Random Glucose 111 (60-115) mg/dL Lactic Acid (0.5-2.0) mmol/L Calcium 9.2 (8.4-10.2) mg/dL Magnesium 2.2 (1.6-2.6) mg/dL Total Bilirubin 1.0 (0.0-1.0) mg/dL Direct Bilirubin 0.5 (0.0-0.5) mg/dL AST 26 D (5-31) U/L ALT 22 (0-31) U/L Alkaline Phosphatase 101 (39-117) U/L Troponin I High Sens (<3.5-17.0) ng/L B-Natriuretic Peptide (<100) pg/mL Total Protein 6.8 (6.5-8.0) g/dL Albumin 4.0 (3.5-5.0) g/dL Urine Color Urine Appearance Urine pH (5.0-8.0) Ur Specific Parsons (1.005-1.025) Urine Protein (NEG-TRACE) MG/DL Urine Glucose (UA) (NEG) MG/DL Urine Ketones (NEG) MG/DL Urine Blood (NEG) Urine Nitrite (NEG) Ur Leukocyte Esterase (NEG) Urine Opiates Screen (Not Detect) Urine Fentanyl Screen (Not Detect) Ur Barbiturates Screen (Not Detect) Ur Phencyclidine Scrn (Not Detect) Ur Amphetamines Screen (Not Detect) U Benzodiazepines Scrn (Not Detect) Urine Cocaine Screen (Not Detect) U Marijuana (THC) Screen (Not Detect) Coronavirus (PCR) NEGATIVE (Negative) Influenza Type A (PCR) NEGATIVE (Negative) Influenza Type B (PCR) NEGATIVE (Negative) RSV RNA Qual (PCR) NEGATIVE (Negative) 05/25/21 05/25/21 05/25/21 Range/Units 13:08 13:08 13:12 WBC (4.8-10.8) X10*3/uL RBC (4.20-5.50) X10*6/uL Hgb (12.0-16.0) g/dl Hct (37-47) % MCV (80-98) fL MCH (27.0-33.0) pg MCHC (31.0-35.0) g/dl RDW (11.0-16.0) % Plt Count (160-400) X10*3/uL MPV (9.4-12.3) fL Immature Gran % (Auto) (0.0-0.4) % Neut % (Auto) (45-73) % Lymph % (Auto) (20-40) % Shoshone % (Auto) (2-11) % Eos % (Auto) (0-4) % Baso % (Auto) (0-2) % Lymph # (Auto) (1.2-4.9) X10*3/uL Shoshone # (Auto) (0.1-1.2) X10*3/uL Eos # (Auto) (0.0-0.4) X10*3/uL Baso # (Auto) (0.0-0.2) X10*3/uL Abs Immat Gran (auto) (0.00-0.03) X10*3/uL Absolute Neuts (auto) (2.0-8.3) X10*3/uL Absolute Nucleated RBC (0.0-0.012) X10*3/uL Nucleated RBC % (auto) (0.0-0.2) /100WBC O2 Saturation 89.0 % ABG pH at Pt Temp 7.29 L (7.35-7.45) ABG pH (Temp Correct) 7.29 L (7.35-7.45) ABG pCO2 at Pt Temp 88 H* (32-45) mmHg ABG pCO2 (Temp Corrct 87 H* (32-45) mmHg ABG pO2 at Pt Temp 66 L (83-108) mmHg ABG pO2 (Temp Correct 65 L (83-108) ABG HCO3 43 H (22-26) mmol/L ABG Base Excess (Actual) 12.2 mmol/L Sodium (135-145) mmol/L Potassium (3.3-5.1) mmol/L Chloride (96-108) mmol/L Carbon Dioxide (22-29) mmol/L Anion Gap (12-20) BUN (9-16) mg/dL Creatinine (0.5-1.4) mg/dL Estim Creat Clear Calc Estimated GFR Random Glucose (60-115) mg/dL Lactic Acid 0.6 (0.5-2.0) mmol/L Calcium (8.4-10.2) mg/dL Magnesium (1.6-2.6) mg/dL Total Bilirubin (0.0-1.0) mg/dL Direct Bilirubin (0.0-0.5) mg/dL AST (5-31) U/L ALT (0-31) U/L Alkaline Phosphatase (39-117) U/L Troponin I High Sens 19.9 H* (<3.5-17.0) ng/L B-Natriuretic Peptide 562 H (<100) pg/mL Total Protein (6.5-8.0) g/dL Albumin (3.5-5.0) g/dL Urine Color Urine Appearance Urine pH (5.0-8.0) Ur Specific Parsons (1.005-1.025) Urine Protein (NEG-TRACE) MG/DL Urine Glucose (UA) (NEG) MG/DL Urine Ketones (NEG) MG/DL Urine Blood (NEG) Urine Nitrite (NEG) Ur Leukocyte Esterase (NEG) Urine Opiates Screen (Not Detect) Urine Fentanyl Screen (Not Detect) Ur Barbiturates Screen (Not Detect) Ur Phencyclidine Scrn (Not Detect) Ur Amphetamines Screen (Not Detect) U Benzodiazepines Scrn (Not Detect) Urine Cocaine Screen (Not Detect) U Marijuana (THC) Screen (Not Detect) Coronavirus (PCR) (Negative) Influenza Type A (PCR) (Negative) Influenza Type B (PCR) (Negative) RSV RNA Qual (PCR) (Negative) 05/25/21 05/25/21 Range/Units 14:41 14:41 WBC (4.8-10.8) X10*3/uL RBC (4.20-5.50) X10*6/uL Hgb (12.0-16.0) g/dl Hct (37-47) % MCV (80-98) fL MCH (27.0-33.0) pg MCHC (31.0-35.0) g/dl RDW (11.0-16.0) % Plt Count (160-400) X10*3/uL MPV (9.4-12.3) fL Immature Gran % (Auto) (0.0-0.4) % Neut % (Auto) (45-73) % Lymph % (Auto) (20-40) % Shoshone % (Auto) (2-11) % Eos % (Auto) (0-4) % Baso % (Auto) (0-2) % Lymph # (Auto) (1.2-4.9) X10*3/uL [place]oshone # (Auto) (0.1-1.2) X10*3/uL Eos # (Auto) (0.0-0.4) X10*3/uL Baso # (Auto) (0.0-0.2) X10*3/uL Abs Immat Gran (auto) (0.00-0.03) X10*3/uL Absolute Neuts (auto) (2.0-8.3) X10*3/uL Absolute Nucleated RBC (0.0-0.012) X10*3/uL Nucleated RBC % (auto) (0.0-0.2) /100WBC O2 Saturation % ABG pH at Pt Temp (7.35-7.45) ABG pH (Temp Correct) (7.35-7.45) ABG pCO2 at Pt Temp (32-45) mmHg ABG pCO2 (Temp Corrct (32-45) mmHg ABG pO2 at Pt Temp (83-108) mmHg ABG pO2 (Temp Correct (83-108) ABG HCO3 (22-26) mmol/L ABG Base Excess (Actual) mmol/L Sodium (135-145) mmol/L Potassium (3.3-5.1) mmol/L Chloride (96-108) mmol/L Carbon Dioxide (22-29) mmol/L Anion Gap (12-20) BUN (9-16) mg/dL Creatinine (0.5-1.4) mg/dL Estim Creat Clear Calc Estimated GFR Random Glucose (60-115) mg/dL Lactic Acid (0.5-2.0) mmol/L Calcium (8.4-10.2) mg/dL Magnesium (1.6-2.6) mg/dL Total Bilirubin (0.0-1.0) mg/dL Direct Bilirubin (0.0-0.5) mg/dL AST (5-31) U/L ALT (0-31) U/L Alkaline Phosphatase (39-117) U/L Troponin I High Sens (<3.5-17.0) ng/L B-Natriuretic Peptide (<100) pg/mL Total Protein (6.5-8.0) g/dL Albumin (3.5-5.0) g/dL Urine Color YELLOW Urine Appearance CLEAR Urine pH 6.0 (5.0-8.0) Ur Specific Parsons 1.010 (1.005-1.025) Urine Protein NEG (NEG-TRACE) MG/DL Urine Glucose (UA) NEG (NEG) MG/DL Urine Ketones NEG (NEG) MG/DL Urine Blood NEG (NEG) Urine Nitrite NEG (NEG) Ur Leukocyte Esterase NEG (NEG) Urine Opiates Screen Not Detected (Not Detect) Urine Fentanyl Screen POSITIVE H (Not Detect) Ur Barbiturates Screen Not Detected (Not Detect) Ur Phencyclidine Scrn Not Detected (Not Detect) Ur Amphetamines Screen Not Detected (Not Detect) U Benzodiazepines Scrn Not Detected (Not Detect) Urine Cocaine Screen Not Detected (Not Detect) U Marijuana (THC) Screen Not Detected (Not Detect) Coronavirus (PCR) (Negative) Influenza Type A (PCR) (Negative) Influenza Type B (PCR) (Negative) RSV RNA Qual (PCR) (Negative) ECG Data Attestation: I personally reviewed and interpreted this ECG as follows: ECG interpretation date: 05/25/21 Prior ECG tracings: available for review Interpretation: sinus rhythm with PAC's, bibasciular block, HR 90 bpm, nonspecific T wave changes. no signficant change from prior. Critical Care Time Critical Care Time Critical Care Time: Yes Total Critical Care Time: 60 Attestation: I have personally provided critical care time exclusive of time spent on separately billable procedures. Time includes review of lab data, radiology results, discussion with consultants, and monitoring for potential decompensation. Intervention performed as documented. Discharge Plan Discharge Clinical Impression: Acute on chronic respiratory failure with hypoxia and hypercapnia, Acute metabolic encephalopathy Acute CHF Qualifiers: Heart failure type: unspecified Qualified Code(s): I50.9 - Heart failure, unspecified CAP (community acquired pneumonia) Qualifiers: Laterality: unspecified laterality Qualified Code(s): J18.9 - Pneumonia, unspecified organism Patient Disposition: Admitted As Inpatient
[2021-05-25 13:55] LABS: Lactic Acid 0.6 mmol/L (0.5-2.0)
[2021-05-25 14:01] LABS: Alanine Aminotransferase 22 U/L (0-31); Alkaline Phosphatase 101 U/L (39-117); Anion Gap 10 (12-20); Aspartate Amino Transferase 26 U/L (5-31); Bilirubin Direct 0.5 mg/dL (0.0-0.5); Blood Urea Nitrogen 16 mg/dL (9-16); Calcium 9.2 mg/dL (8.4-10.2); Carbon Dioxide 39 mmol/L (22-29); Chloride 99 mmol/L (96-108); Creatinine Clr Calc Pharmacy 77.4; Estimated Glomerular Filt Rate > 60; Glucose Random 111 mg/dL (60-115); Magnesium 2.2 mg/dL (1.6-2.6); Potassium 3.9 mmol/L (3.3-5.1); Sodium 144 mmol/L (135-145); Total Protein 6.8 g/dL (6.5-8.0)
[2021-05-25 14:07] LABS: B Type Natriuretic Peptide 562 pg/mL (<100); Troponin-I High Sensitivity 19.9 ng/L (<3.5-17.0)
[2021-05-25] MEDS: cefTRIAXone sodium 1 GM in 0.9 % Sodium Chloride 50 ML IV (14:33)
[2021-05-25] MEDS: Furosemide 40 MG/4 ML VIAL IVPUSH ×2 (14:33→22:59)
[2021-05-25 14:44] LABS: Influenza A PCR NEGATIVE (Negative); Influenza B PCR NEGATIVE (Negative); Resp Syncy Virus RNA Qual PCR NEGATIVE (Negative); SARS COV2 PCR INHOUSE NEGATIVE (Negative)
--- NOTE | 2021-05-25 14:45 | PHA.MEDREC ---
Pharmacy Consult ? Medication Reconciliation Pharmacy has completed the medication reconciliation. Patient was unable to talk at the time I was there. Patient had a medication list which matched the claim history. Lyn Zafar, BradD
[2021-05-25 14:49] LABS: Glucose Urine UA NEG (NEG); Leukocyte Esterase Urine NEG (NEG); Nitrite Urine NEG (NEG); Urine Blood NEG (NEG); Urine Ketones NEG (NEG); Urine Protein NEG (NEG-TRACE)
[2021-05-25 14:50] LABS: Appearance Urine CLEAR; Color Urine YELLOW
--- NOTE | 2021-05-25 15:11 | PC.NURSE ---
janelle son [phone] cell [phone]
[2021-05-25] MEDS: Azithromycin 500 MG in 0.9 % Sodium Chloride 250 ML 125 MG IV (15:13)
[2021-05-25 15:17] LABS: Amphetamine Screen Urine Not Detected (Not Detect); Barbiturates, Urine Not Detected (Not Detect); Benzodiazepines Screen Urine Not Detected (Not Detect); Cannabinoid Screen Urine Not Detected (Not Detect); Cocaine Screen Urine Not Detected (Not Detect); Fentanyl, urine POSITIVE (Not Detect); Opiate Screen Urine Not Detected (Not Detect); Phencyclidine Screen Urine Not Detected (Not Detect)
[2021-05-25] MEDS: Naloxone HCl 0.4 MG/ML VIAL IVPUSH (15:36)
--- NOTE | 2021-05-25 17:28 | PC.NURSE ---
PT TOUGH STICK, NUMEROUS ATTEMPTS BY STAFF TO ACQUIRE SECOND TROPONIN. PHLEBOTOMY CONTACTED FOR ASSISTANCE. PT REMAINS SOMNOLENT THOUGH EASILY ROUSED BY VERBAL STIMULI. ORDERS TO DC BIPAP FOR REASSESSMENT. PT VEHEMENTLY DENIES SUBSTANCE USE.
[2021-05-25 18:24] LABS: D Dimer < 200 NG/ML
[2021-05-25 18:46] LABS: Troponin-I High Sensitivity 22.3 ng/L (<3.5-17.0)
[2021-05-25 21:53] LABS: ABG Base Excess 10.7 mmol/L; ABG HCO3 40 mmol/L (22-26); ABG pCO2 74 mmHg (32-45); ABG pCO2 TC 74 mmHg (32-45); ABG pH 7.34 (7.35-7.45); ABG pH TC 7.34 (7.35-7.45); ABG pO2 77 mmHg (83-108); ABG pO2 TC 78 (83-108)
[2021-05-25] MEDS: methylPREDNISolone Sod Succ 125 MG/2 ML VIAL 60 MG IVPUSH (22:58)
[2021-05-25] MEDS: Enoxaparin Sodium 40 MG/0.4 ML SYRINGE SUBCUT (22:59)
[2021-05-25] MEDS: dilTIAZem HCL CD 120 MG CAP.ER.DEG PO (23:14)
[2021-05-25] MEDS: busPIRone HCl 5 MG TABLET 7.5 MG PO (23:14)
[2021-05-25 23:38] LABS: ABG Refer to POC result
[2021-05-26] VITALS (30 sets, daily range): BP systolic 115–146; BP diastolic 56–84; PULSE 67–128; RESP 11–29; TEMP 36.5–37.1; O2SAT 87–95; BMI 36.3
[2021-05-26] MEDS: Albuterol/Iprat 2.5/0.5MG 3 ML AMPUL.NEB INHALE ×3 (00:14→14:21)
--- NOTE | 2021-05-26 02:22 | PM.CCHP ---
History of Present Illness Date of Service: 05/25/21 Chief Complaint: Hypercarbic respiratory failure/mental status changes HPI: ?71-year-old female who is obese, ongoing smoker has history of chronic COPD, oxygen dependent, diastolic congestive heart failure, atrial arrhythmia, obstructive sleep apnea, aortic stenosis, bifascicular block, hyperlipidemia, anxiety, B12 deficiency, irritable bowel syndrome, GERD, hypothyroidism among others. Patient presented to the emergency room via EMS with complaints of shortness of breath and reported lethargy.? She had reported feeling weak and having several falls at home, she had complained of headache does unable to elaborate on her symptoms.? Her initial assessment revealed normal vital signs with section of the O2 sat 90 post noon 5 L nasal cannula as her baseline is 2 L. she appeared lethargic with a end-tidal CO2 of 50-60. Laboratory workup revealed no white count, normal H&H, no electrolyte derangement however her CO2 was 39.? ABG showed respiratory acidosis and hypercapnia with pH of 7.29 ?pCO2 of 84, PO2 65 and HC03 of 43. ProBNP 562 and troponin of 19.9.? U tox reveal fentanyl own but is unclear if she got anything in the ambulance as the patient normally does not take narcotics. ?Chest x-ray show pulmonary congestion which was further assessed with chest CT showing development of bilateral lower lobe airspace disease with diffuse interstitial prominence and some ground-glass opacities in the left upper lobe which may be related to atelectasis, pneumonitis or pulmonary edema of cardiogenic or noncardiogenic etiology along with a 4.5 cm ascending thoracic aortic aneurysm.? Cardiomegaly and mediastinal with questionable hilar lymphadenopathy. ?Head CT was negative.? Given the presence of fentanyl Narcan was given without any improvement of her somnolent state, she was given Lasix is and was given antibiotics for the possibility of pneumonia along with albuterol and steroids. Patient had been placed on BiPAP and transferred to the ICU for further management. ? ROS:? Unable to obtain as the patient is on BiPAP? Past Medical History:? As above Past Surgical History: Umbilical herniorrhaphy Family history: ?NONCONTRIBUTORY Social History:? Patient is known to live alone, she is a current tobacco user, unable to quantify, denies alcohol, no drugs.? Her quality of life in capabilities are no known at this point. CODE STATUS:? Full code Allergies: ?Morphine (unknown reaction) Home Medications:? Please see med rec PHYSICAL EXAM: VS: ?Blood pressure 149/86, heart rate 85, respirations 17, O2 sat 90% on BiPAP with FiO2 of 35, temperature 98.4?. General:? Alert oriented x3 no acute distress. ?Responds to verbal stimuli.? Following all commands. Skin:? Intact, no lesions, edema, erythema, clubbing or cyanosis.? No ulcers. HEENT:? Head is normocephalic, atraumatic, pupils equal round reactive to light accommodation bilaterally.? Extraocular movements appear intact.? Buccal mucosa is moist, Neck is supple without lymphadenopathy. Cardiac:? Clear S1-S2, pansystolic 4/6 crescendo murmur is noted best at the left upper sternal border.? No rubs or gallops. Pulmonary:? Diminished lung sounds bilaterally with minimal wheezing at the bases, no crackles, rhonchi. Abdomen:? Protuberant, positive bowel sounds in all 4 quadrants.? Soft, nontender, no rebound or guarding. ?Large Ventral hernia noted, nontender. ? Musculoskeletal:? Moving all 4 extremities upon request a major joints, there is no crepitus or tenderness.? The strength is 5/5 bilaterally and throughout all 4 extremities. There is bilateral lower extremity edema 2+ pitting however there is asymmetry as the left leg appears larger than the right, there is no actual calf tenderness.? No Homans sign. ?Gait not assessed at this point. Neurologic:? As above, cranial nerves 2-12 are grossly intact.? No focal deficits noted. Motor strength as above.? Vascular:? 2+ pulses upper and lower extremities distally. SIGNIFICANT LABORATORY DATA: as above REVIEW OF IMAGES: CXR IMPRESSION: Pulmonary vascular prominence without wade edema. Question lingula disease.? Stable postoperative change right lung with calcified plaques. CHEST CT IMPRESSION: Development of bilateral lower lobe airspace disease with diffuse interstitial prominence and with some groundglass opacity in the left upper lobe which may be related to atelectasis, pneumonitis, or pulmonary edema of cardiogenic or noncardiogenic etiology. ? Status post previous right lung surgery with chronic pleural parenchymal disease with calcified plaque. Cardiomegaly.? 4.5 cm ascending thoracic aortic aneurysm.? Mediastinal and question hilar lymphadenopathy. HEAD CT IMPRESSION No acute intracranial process seen. EKG REVIEW: ?Sinus rhythm with PACs, rate 90 beats per minute.? Evidence of right bundle-branch block and left anterior fascicular block appears chronic.? LVH criteria.? QTC 521. There is no discrete ST elevations or depressions noted. ASSESSMENT AND PLAN: 1. Acute on chronic respiratory failure with hypercarbia 2. Somnolence secondary to hypercarbia causing Encephalopathy 3. COPD exacerbation on oxygen dependent patient 4. Acute on chronic CHF with exacerbation (diastolic) 5. Abnormal troponin likely due to stress and demand 6. Ongoing tobacco abuse==== counseled 7. Hx DHEERAJ 8. Hx Non Rheumatic 9. 4.5 cm Ascending thoracic aortic aneurysm 10. Abd ventral Hernia (asx now) Admit to ICU, vital signs, I's and O's, will place her on BiPAP and repeat ABG now to determine any further adjustments, will start her on Solu-Medrol IV with DuoNeb every 6 hours and albuterol as needed, I do believe the patient has a dual diagnosis with superimposed CHF therefore Lasix 40 mg IV q.12 hours will be given.? Patient was counseled on smoke cessation and I will start her on Nicoderm patches.? I do not think the patient has pneumonia therefore no antibiotics are indicated at this point ? Zithromax given her underlying COPD status; however given the prolonged QTC this is not indicated at this point. Patient will be referred to a vascular surgeon for follow-up and further management of her AAA. Given lower extremity edema will rule out DVT via ultrasound.? Patient may need a formal echo in the morning. GI PROPHYLAXIS:on omeprazole DVT PROPHYLAXIS: Lovenox sub q Critical care time used for critical evaluation of this patient, diagnosis, treatment and coordination of care, review her records and documentation TOTAL CRITICAL CARE TIME 90 MIN . Patient's care was discussed in detail with Dr. Ferrell.? He is aware of all the above as well as the plan of care for this patient. [facility] Past Medical History Medical History Atherosclerotic cardiovascular disease Atrial arrhythmia Bifascicular block Chronic diastolic (congestive) heart failure COPD (chronic obstructive pulmonary disease) COPD (chronic obstructive pulmonary disease) Enuresis Nonrheumatic aortic (valve) stenosis On home oxygen therapy DHEERAJ (obstructive sleep apnea) Respiratory failure with hypoxia and hypercapnia Urge incontinence Family History Family History Father No problems noted. Mother No problems noted. Surgical History Surgical History History of umbilical hernia repair Social History Social History Household Members: None Housing: Other Housing Other:: lives alone - unsure if house or apt Unable to assess alcohol history related to: Unable to respond and Refusing to respond Alcohol intake: never Patient Tobacco Use Status: Current everyday Tobacco user Use of substances other than those prescribed or required for medical reasons: Unable to respond Currently Displaying Signs/Symptoms of Drug Intoxication Withdrawal: No Spiritual Healthcare Practices: unknown Worship Healthcare Practices: unknown Cultural Healthcare Practices: unknown Advance Directives: Yes (unsure of date) Advance Directives Information Provided: No Advance Directives on File: No Advance Directives Date on File: 05/25/21 Do you have thoughts of harming others: None Do you have a plan to hurt others: No Plan Recently lost weight without trying: Unsure Patient : No : No Poor oral hygiene: No service: No Current occupational status: disabled Meds Allergies Allergy/AdvReac Type Severity Reaction Status Date / Time morphine [Morphine] Allergy Unknown UNKNOWN Verified 05/25/21 12:58 Active Medications: Current Medications Generic Name Dose Route Start Last Admin Trade Name Freq PRN Reason Stop Dose Admin Albuterol/Ipratropium 3 ml 05/25/21 22:30 05/26/21 00:14 Albuterol/Iprat 2.5/0.5mg 3 Ml Ampul.Neb INHALE 3 ml RQ6H WHILE AWAKE GERMAN Administration Albuterol/Ipratropium 3 ml 05/25/21 22:13 Albuterol/Iprat 2.5/0.5mg 3 Ml Ampul.Neb INHALE RQ6H PRN sob / wheezing Aspirin 81 mg 05/26/21 09:00 Aspirin 81 Mg Tab.Chew PO DAILY GERMAN Atorvastatin Calcium 40 mg 05/26/21 09:00 Atorvastatin Calcium 40 Mg Tablet PO DAILY GERMAN Buspirone HCl 7.5 mg 05/25/21 21:36 05/25/21 23:14 Buspirone Hcl 5 Mg Tablet PO 7.5 mg BID GERMAN Administration Clonazepam 0.25 mg 05/25/21 21:36 Clonazepam 0.5 Mg Tablet PO BEDTIME PRN Sleep Dicyclomine HCl 10 mg 05/26/21 08:00 Dicyclomine Hcl 10 Mg Capsule PO TIDWM [facility] Diltiazem HCl 120 mg 05/25/21 21:36 05/25/21 23:14 Diltiazem Hcl Cd 120 Mg Cap.Er.Deg PO 120 mg BID GERMAN Administration Protocol Enoxaparin Sodium 40 mg 05/25/21 23:00 05/25/21 22:59 Enoxaparin Sodium 40 Mg/0.4 Ml Syringe SUBCUT 40 mg Q24H [facility] Administration Furosemide 40 mg 05/26/21 09:00 Furosemide 40 Mg/4 Ml Vial IVPUSH BID@0900,1800 [facility] Protocol Levothyroxine Sodium 175 mcg 05/26/21 06:30 Levothyroxine Sodium 175 Mcg Tablet PO DAILY@0630 [facility] Methylprednisolone Sodium Succinate 60 mg 05/25/21 22:30 05/25/21 22:58 Methylprednisolone Sod Succ 125 Mg/2 Ml Vial IVPUSH 60 mg Q8H [facility] Administration Nicotine 21 mg 05/26/21 09:00 Nicotine 21 Mg Patch.Td24 TRANSDERMA DAILY [facility] Omeprazole 20 mg 05/26/21 06:30 Omeprazole 20 Mg Capsule. PO DAILY@0630 [facility] Pharmacy Consult 1 each 05/25/21 13:00 Consult Rx Perform Med Rec MISCELLANE ONCE PRN Consult order Vilazodone HCl 40 mg 05/26/21 09:00 Vilazodone Hcl 40 Mg Tablet PO DAILY [facility] Home Medications Medication Instructions Recorded Confirmed Last Taken Type atorvastatin 40 mg tablet 40 mg PO DAILY tab 08/19/20 05/25/21 Unknown History diltiazem HCl 120 mg 120 mg PO BID cap 08/19/20 05/25/21 Unknown History capsule,extended release 12 hr guaifenesin 600 mg tablet, 600 mg PO BID 08/30/20 05/25/21 Unknown History extended release 12 hr (Mucinex) ipratropium 0.5 mg-albuterol 3 mg 3 ml INHALATION Q6H PRN 08/30/20 05/25/21 Unknown History (2.5 mg base)/3 mL nebulization soln tiotropium bromide 18 mcg capsule 1 cap INHALATION DAILY 08/30/20 05/25/21 Unknown History with inhalation device (Spiriva with HandiHaler) clonazepam 0.5 mg tablet 0.25 mg PO BEDTIME PRN tab 10/04/20 05/25/21 Unknown History dicyclomine 10 mg capsule 10 mg PO TIDWM cap 10/04/20 05/25/21 Unknown History levothyroxine 175 mcg tablet 175 mcg PO DAILY@0630 tab 10/04/20 05/25/21 Unknown History omeprazole 20 mg capsule,delayed 20 mg PO DAILY cap 10/04/20 05/25/21 Unknown History release vilazodone 40 mg tablet 40 mg PO DAILY tab 10/04/20 05/25/21 Unknown History lactulose 10 gram/15 mL oral 15 ml PO BID PRN 10/25/20 05/25/21 Unknown History solution furosemide 20 mg tablet 60 mg PO DAILY tab 11/30/20 05/25/21 Unknown History cyanocobalamin (vitamin B-12) 1,000 mcg IM Q30D 03/31/21 05/25/21 Unknown History 1,000 mcg/mL injection solution gabapentin 300 mg capsule 300 mg PO BEDTIME 03/31/21 05/25/21 Unknown History melatonin 5 mg tablet 5 mg PO BEDTIME PRN 03/31/21 05/25/21 Unknown History acetaminophen 325 mg tablet 650 mg PO Q4H PRN 05/25/21 05/25/21 Unknown History aspirin 81 mg chewable tablet 81 mg PO DAILY 05/25/21 05/25/21 Unknown History buspirone 7.5 mg tablet 1 tab PO BID 05/25/21 05/25/21 Unknown History fluticasone furoate 200 1 inh INHALATION BEDTIME 05/25/21 05/25/21 Unknown History mcg-vilanterol 25 mcg/dose inhalation powder (Breo Ellipta) oxybutynin chloride 15 mg 15 mg PO BID 05/25/21 05/25/21 Unknown History tablet,extended release 24 hr simethicone 80 mg chewable tablet 80 mg PO BEDTIME 05/25/21 05/25/21 Unknown History Physical Exam Vital Signs: Vital Signs: Last Vital Signs Temp 97.7 F 05/26/21 00:07 Pulse 70 05/26/21 02:02 Resp 16 05/26/21 02:02 BP 142/69 H 05/26/21 02:02 Pulse Ox 93 05/26/21 02:02 Oxygen Flow Rate 5 05/25/21 12:48 Body Mass Index 36.8 Results Labs CBC and Chem 7: 05/26/21 05:16 05/26/21 05:16 Labs: Laboratory Results - last 24 hr 05/25/21 05/25/21 05/25/21 13:08 13:08 13:08 MCV 98.5 H MCH 30.4 MCHC 30.9 L RDW 13.8 Plt Count 189 MPV 9.7 Immature Gran % (Auto) 0.4 Neut % (Auto) 69.3 Lymph % (Auto) 17.4 L [place] % (Auto) 9.8 Eos % (Auto) 2.6 Baso % (Auto) 0.5 Lymph # (Auto) 1.4 [place] # (Auto) 0.8 Eos # (Auto) 0.2 Baso # (Auto) 0.0 Abs Immat Gran (auto) 0.03 Absolute Neuts (auto) 5.6 Absolute Nucleated RBC 0.000 Nucleated RBC % (auto) 0.0 D-Dimer O2 Saturation ABG pH at Pt Temp ABG pH (Temp Correct) ABG pCO2 at Pt Temp ABG pCO2 (Temp Corrct ABG pO2 at Pt Temp ABG pO2 (Temp Correct ABG HCO3 ABG Base Excess (Actual) Anion Gap 10 L Estim Creat Clear Calc 77.4 Estimated GFR > 60 Random Glucose 111 Lactic Acid Calcium 9.2 Magnesium 2.2 Total Bilirubin 1.0 Direct Bilirubin 0.5 AST 26 D ALT 22 Alkaline Phosphatase 101 Troponin I High Sens B-Natriuretic Peptide Total Protein 6.8 Albumin 4.0 Urine Color Urine Appearance Urine pH Ur Specific [place] Urine Protein Urine Glucose (UA) Urine Ketones Urine Blood Urine Nitrite Ur Leukocyte Esterase Urine Opiates Screen Urine Fentanyl Screen Ur Barbiturates Screen Ur Phencyclidine Scrn Ur Amphetamines Screen U Benzodiazepines Scrn Urine Cocaine Screen U Marijuana (THC) Screen Coronavirus (PCR) NEGATIVE Influenza Type A (PCR) NEGATIVE Influenza Type B (PCR) NEGATIVE RSV RNA Qual (PCR) NEGATIVE 05/25/21 05/25/21 05/25/21 13:08 13:08 13:12 MCV MCH MCHC RDW Plt Count MPV Immature Gran % (Auto) Neut % (Auto) Lymph % (Auto) [place] % (Auto) Eos % (Auto) Baso % (Auto) Lymph # (Auto) [place] # (Auto) Eos # (Auto) Baso # (Auto) Abs Immat Gran (auto) Absolute Neuts (auto) Absolute Nucleated RBC Nucleated RBC % (auto) D-Dimer O2 Saturation 89.0 ABG pH at Pt Temp 7.29 L ABG pH (Temp Correct) 7.29 L ABG pCO2 at Pt Temp 88 H* ABG pCO2 (Temp Corrct 87 H* ABG pO2 at Pt Temp 66 L ABG pO2 (Temp Correct 65 L ABG HCO3 43 H ABG Base Excess (Actual) 12.2 Anion Gap Estim Creat Clear Calc Estimated GFR Random Glucose Lactic Acid 0.6 Calcium Magnesium Total Bilirubin Direct Bilirubin AST ALT Alkaline Phosphatase Troponin I High Sens 19.9 H* B-Natriuretic Peptide 562 H Total Protein Albumin Urine Color Urine Appearance Urine pH Ur Specific [place] Urine Protein Urine Glucose (UA) Urine Ketones Urine Blood Urine Nitrite Ur Leukocyte Esterase Urine Opiates Screen Urine Fentanyl Screen Ur Barbiturates Screen Ur Phencyclidine Scrn Ur Amphetamines Screen U Benzodiazepines Scrn Urine Cocaine Screen U Marijuana (THC) Screen Coronavirus (PCR) Influenza Type A (PCR) Influenza Type B (PCR) RSV RNA Qual (PCR) 05/25/21 05/25/21 05/25/21 14:41 14:41 18:06 MCV MCH MCHC RDW Plt Count MPV Immature Gran % (Auto) Neut % (Auto) Lymph % (Auto) [place] % (Auto) Eos % (Auto) Baso % (Auto) Lymph # (Auto) [place] # (Auto) Eos # (Auto) Baso # (Auto) Abs Immat Gran (auto) Absolute Neuts (auto) Absolute Nucleated RBC Nucleated RBC % (auto) D-Dimer O2 Saturation ABG pH at Pt Temp ABG pH (Temp Correct) ABG pCO2 at Pt Temp ABG pCO2 (Temp Corrct ABG pO2 at Pt Temp ABG pO2 (Temp Correct ABG HCO3 ABG Base Excess (Actual) Anion Gap Estim Creat Clear Calc Estimated GFR Random Glucose Lactic Acid Calcium Magnesium Total Bilirubin Direct Bilirubin AST ALT Alkaline Phosphatase Troponin I High Sens 22.3 H* B-Natriuretic Peptide Total Protein Albumin Urine Color YELLOW Urine Appearance CLEAR Urine pH 6.0 Ur Specific [place] 1.010 Urine Protein NEG Urine Glucose (UA) NEG Urine Ketones NEG Urine Blood NEG Urine Nitrite NEG Ur Leukocyte Esterase NEG Urine Opiates Screen Not Detected Urine Fentanyl Screen POSITIVE H Ur Barbiturates Screen Not Detected Ur Phencyclidine Scrn Not Detected Ur Amphetamines Screen Not Detected U Benzodiazepines Scrn Not Detected Urine Cocaine Screen Not Detected U Marijuana (THC) Screen Not Detected Coronavirus (PCR) Influenza Type A (PCR) Influenza Type B (PCR) RSV RNA Qual (PCR) 05/25/21 05/25/21 18:08 21:45 MCV MCH MCHC RDW Plt Count MPV Immature Gran % (Auto) Neut % (Auto) Lymph % (Auto) [place] % (Auto) Eos % (Auto) Baso % (Auto) Lymph # (Auto) [place] # (Auto) Eos # (Auto) Baso # (Auto) Abs Immat Gran (auto) Absolute Neuts (auto) Absolute Nucleated RBC Nucleated RBC % (auto) D-Dimer < 200 O2 Saturation 94.0 ABG pH at Pt Temp 7.34 L ABG pH (Temp Correct) 7.34 L ABG pCO2 at Pt Temp 74 H* ABG pCO2 (Temp Corrct 74 H* ABG pO2 at Pt Temp 77 L ABG pO2 (Temp Correct 78 L ABG HCO3 40 H ABG Base Excess (Actual) 10.7 Anion Gap Estim Creat Clear Calc Estimated GFR Random Glucose Lactic Acid Calcium Magnesium Total Bilirubin Direct Bilirubin AST ALT Alkaline Phosphatase Troponin I High Sens B-Natriuretic Peptide Total Protein Albumin Urine Color Urine Appearance Urine pH Ur Specific [place] Urine Protein Urine Glucose (UA) Urine Ketones Urine Blood Urine Nitrite Ur Leukocyte Esterase Urine Opiates Screen Urine Fentanyl Screen Ur Barbiturates Screen Ur Phencyclidine Scrn Ur Amphetamines Screen U Benzodiazepines Scrn Urine Cocaine Screen U Marijuana (THC) Screen Coronavirus (PCR) Influenza Type A (PCR) Influenza Type B (PCR) RSV RNA Qual (PCR) Imaging Radiologist's Impressions: Impressions Venous Duplex 05/25/21 10:45 IMPRESSION: No DVT demonstrated in either lower extremity. Chest X-Ray 05/25/21 12:51 IMPRESSION: Pulmonary vascular prominence without wade edema. Question lingula disease. Stable postoperative change right lung with calcified plaques. Chest CT 05/25/21 13:45 IMPRESSION: Development of bilateral lower lobe airspace disease with diffuse interstitial prominence and with some groundglass opacity in the left upper lobe which may be related to atelectasis, pneumonitis, or pulmonary edema of cardiogenic or noncardiogenic etiology. Status post previous right lung surgery with chronic pleural parenchymal disease with calcified plaque. Cardiomegaly. 4.5 cm ascending thoracic aortic aneurysm. Mediastinal and question hilar lymphadenopathy. Head CT 05/25/21 13:45 IMPRESSION: No acute intracranial process seen..
[2021-05-26 05:23] LABS: VBG Base Excess 12.8 mmol/L; VBG HCO3 41 mmol/L (22-26); VBG pCO2 71 mmHg; VBG pH 7.37 (7.32-7.43); VBG pO2 74 mmHg
[2021-05-26 05:25] LABS: Venous Blood Gas Refer to POC result
[2021-05-26 05:39] LABS: MANUAL DIFF FLAG NO
[2021-05-26 05:47] LABS: Basophils Percent Auto 0.2 % (0-2); Hematocrit 45.2 % (37-47); Imm Gran Abs Auto 0.03 X10*3/uL (0.00-0.03); Imm Gran Pct Auto 0.7 % (0.0-0.4); Lymphocytes Absolute Auto 0.4 X10*3/uL (1.2-4.9); Lymphocytes Percent Auto 7.9 % (20-40); Mean Corpuscular Hemoglobin 30.2 pg (27.0-33.0); Mean Corpuscular Volume 97.4 fL (80-98); Mean Platelet Volume 10.1 fL (9.4-12.3); Monocytes Absolute Auto 0.1 X10*3/uL (0.1-1.2); Monocytes Percent Auto 1.4 % (2-11); Neutrophils Percent Auto 89.8 % (45-73); Platelet Count 186 X10*3/uL (160-400); Red Blood Count 4.64 X10*6/uL (4.20-5.50); Red Cell Distribution Width 13.4 % (11.0-16.0); White Blood Count 4.4 X10*3/uL (4.8-10.8)
[2021-05-26 06:07] LABS: Alanine Aminotransferase 20 U/L (0-31); Albumin Level 3.8 g/dL (3.5-5.0); Alkaline Phosphatase 97 U/L (39-117); Anion Gap 11 (12-20); Aspartate Amino Transferase 21 U/L (5-31); Bilirubin Total 0.7 mg/dL (0.0-1.0); Blood Urea Nitrogen 16 mg/dL (9-16); C Reactive Protein 0.42 mg/dL (< or = 0.50); Calcium 8.9 mg/dL (8.4-10.2); Carbon Dioxide 39 mmol/L (22-29); Chloride 99 mmol/L (96-108); Creatinine Clr Calc Pharmacy 77.5; Estimated Glomerular Filt Rate > 60; Glucose Random 142 mg/dL (60-115); Sodium 145 mmol/L (135-145); Total Protein 6.6 g/dL (6.5-8.0)
[2021-05-26] MEDS: Omeprazole 20 MG CAPSULE.DR PO (06:16)
[2021-05-26] MEDS: methylPREDNISolone Sod Succ 125 MG/2 ML VIAL 60 MG IVPUSH ×2 (06:16→14:19)
[2021-05-26] MEDS: Levothyroxine Sodium 175 MCG TABLET PO (06:16)
[2021-05-26] MEDS: acetaZOLAMIDE sodium 500 MG VIAL IVPUSH ×3 (06:29→22:21)
--- NOTE | 2021-05-26 10:27 | P.CDIC_ITS ---
CDI Concurrent Query Service Date: 05/26/21 Documentation Clarification: Please clarify if you are treating a proba ble/suspected/likely or confirmed: Acute Encephalopathy Toxic Encephalopthy Metabolic Encephalopathy Other, please specify if known or undetermined Provider Response: Metabolic Encephalopathy PLEASE DO NOT DELETE/MODIFY EXISTING CONTENT Additional information is needed in order to code to the highest accuracy and appropriate Severity of Illness (SOI). Please clarify the information noted below in your progress notes and discharge summary. Risk Factors/Clinical Indicators/Treatments ED: Arrived w altered mental status, lethargic, complained of headache, falls at home. Head Ct scan for the altered mental status, falls - no acute intracranial process seen. Utox + for fentanyl, not prescribed any opiates, denies drug use, given Narcan to see if mental change, no response to the IV Narcan. CDS: Virginia Baer CCS, CDIS Contact Number: [phone] Please Review the information above and exercise your independent professional judgment in responding to the query. If you concur, pleas document in the PROGRESS NOTES and DISCHARGE SUMMARY. If you do not agree with the query, please document in the query above. THIS QUERY IS PART OF THE PERMANENT MEDICAL RECORD
[2021-05-26] MEDS: Aspirin 81 MG TAB.CHEW PO (10:30)
[2021-05-26] MEDS: Atorvastatin Calcium 40 MG TABLET PO (10:30)
[2021-05-26] MEDS: busPIRone HCl 5 MG TABLET 7.5 MG PO ×2 (10:30→19:30)
[2021-05-26] MEDS: dilTIAZem HCL CD 120 MG CAP.ER.DEG PO ×2 (10:30→19:29)
[2021-05-26] MEDS: Vilazodone HCL 40 MG TABLET PO (10:30)
[2021-05-26] MEDS: Dicyclomine HCl 10 MG CAPSULE PO ×2 (10:31→16:12)
[2021-05-26] MEDS: Nicotine 21 MG PATCH.TD24 TRANSDERMA (10:31)
[2021-05-26] MEDS: Furosemide 40 MG/4 ML VIAL IVPUSH ×2 (10:31→17:00)
--- NOTE | 2021-05-26 10:32 | MHC.CM.PN ---
Addendum entered by Apryl Adams 05/26/21 10:42: Message left for Suzan, pt's verified HCP requesting a call back for d/c planning information. IMM left with pt, HCP in chart, and referral placed for continuation of [employer] services. It is presumed that Suzan can transport pt home: will confirm when Suzan calls back. Original Note: Met with pt to discuss d/c planning: Pt in ICU w/respiratory failure: just taken off of BiPAP and on n/c. Pt with difficulty concentrating on CM questions: frequently asking where she is and responding to orientation [place] No I'm not, the stairway is red [place] [facility] you can't fool me. Pt states she lives with her son who according to her is not reliable, he leaves in the am without making me breakfast, I have to eat (expletive) cereal when I should have hot eggs Pt states [facility] for ADVISORY APPLICATION DEVELOPER/RN visits as well as what sounds to be [employer] credit risk management director visits. Her dtr, Suzan (HCP) assists with transportation but pt also has a PT-1 form as well. Pt uses a cane and has an O2 concentrator. Pt required frequent redirection and orientation - fixated on calling an employment attorney for updates on her Aunt Anthony's will I need to know when I'm getting my inheritence CM to contact pt's dtr/HCP Suzan for a better sense of pt's baseline mentation and d/c planning needs.
--- NOTE | 2021-05-26 17:00 | PM.CCPN ---
Subjective Subjective Date of Service: 05/26/21 Critical Care Time (minutes): 0 Comment: Mrs. Maradiaga was admitted to the ICU last night bec of acute on chronic hypercapnic respiratory failure. The patient is a 71-year-old female with PMHx of obesity, irreparable ventral hernia(s), ongoing smoker, DHEERAJ, chronic oxygen-dependent COPD with CO2 retention, moderate aortic stenosis, diastolic congestive heart failure, atrial arrhythmia, bifascicular block, hyperlipidemia, anxiety, B12 deficiency, irritable bowel syndrome, GERD, and hypothyroidism. She?s on 2L NC at home and she?s had consistently elevated serum bicarbonate level since Aug, 2020.? Last ECHOCARDIOGRAM April, showed: ?Normal LV systolic function with severe LVH with impaired relaxation filling pattern; normal RV; severely dilated left atrium; moderate to severe aortic stenosis with gradients 43/25mm; mild MR; mild TR; normal IVC with normal inspiratory collapse; RVSP estimate 34 mm.? [facility] records indicate that her BNPs have been running in the 150-300 range since July,.? She takes Lasix 60mg daily. Patient lives alone and is a current tobacco user.? No alcohol or drugs.? Her son is her healthcare proxy. The Patient was BIBA to the ED yesterday early afternoon bec of shortness of breath and reported lethargy.? She reported feeling weak and having several falls at home. In the ED she was lethargic and bradypneic with Sat 90% on 5L oxygen, w end-tidal CO2 50-60.? She had poor air entry.? She had bilat pitting edema.? Left legs much bigger than the right, which the patient says is chronic. ?ABG showed 7.29/88/66/+12.? White count was normal, hemoglobin was 14 (unchanged), BUN/creatinine were 16/0.7 (unchanged), bicarb was 39, LFTs were normal, troponin was 19, BNP was 562, Lactic acid was 0.6, and D-dimer was negative. Venous duplex was negative for DVT.? Chest x-ray is very difficult to read. ?It seems to show (my reading) vascular congestion and pulmonary edema on the right and also possibly on the left, with significant opacification of the left lower lobe and left lingula of unclear etiology. Follow-up noncontrast chest CT showed significant diffuse bilateral chronic lung disease.? She has a small area of consolidation in the medial posterior right lower lobe of unclear etiology, along with small bilat posterior LL atelectasis.? There is marked cardiomegaly, with an ascending thoracic aortic aneurysm measuring 4.5 cm.? The radiologist also read a 1.3 cm right precarinal lymph node.? Head CT was negative. She was put on BiPAP.? She was given Lasix and antibiotics, along with albuterol and steroids.? After couple of hours of BiPAP, she was trialed on nasal cannula but became lethargic again, with end-tidal CO2 into the 70s.? She was therefore admitted to the ICU. Repeat blood gas last night after admission to the ICU, on BiPAP (? 35% FiO2), showed 7.34/74/77/+10.? She was continued on steroids and bronchodilators, along with Lasix 40 mg q.12.? Antibiotics were not continued.? Anti-inflammatory Zithromax was not given because of prolonged QT. Today the patient is fully awake and appropriate, altho quite irascible.? She complains about everything.? Otherwise, she looks thoroughly nontoxic, and not acutely ill.? She?s breathing easy on 3.5L NC oxygen, with Sat 90%.? HR has been 90-120 today, SR w very frequent PACs.? BP is running about 130/60.? She?s been afebrile throughout.? No JVD at 30?.? Chest shows diminished BS, with no wheezes, rhonchi, or rales, and a normal exp phase.? She has a 3/6 mid-late peaking CHARISSA, transmitted into the left carotid.? Abdomen shows a large midline ventral hernia, at least softball sized, with a golf-ball sized hard, mobile mass of undetermined etiology caudal and to the right of it.? She has minimal central edema.? The left lower leg has 2-3+ pitting pretibial edema, and is noticeably larger than the right leg, which has 1-2+ pitting pretibial edema. LABORATORY DATA:? As below.? Notably, White count this morning is down to 4.4.? Hemoglobin and platelet count are unchanged.? Peripheral venous blood gas this morning showed 7.37/71/+12.? Sodium is 145, bicarb 39, BUN and creatinine 16/0.7 (unchanged from yesterday, despite diuresis). Impression: 1. Tobacco abuse. 2. End-stage COPD with CO2 retention, secondary to above, with metabolic encephalopathy due to CO2 narcosis. 3. Some element of acute on chronic congestive heart failure, based on her edema, BNP, and chest x-ray.? Continue Lasix 40mg bid. 4. COPD exacerbation.? Much better this morning.? We can cut her Solu-Medrol to 40mg bid. 5. History of DHEERAJ.? Her head and neck habitus are highly suggestive.? She should wear CPAP at night. 6. Acute on chronic hypercapnic and hypoxemic respiratory failure.? Secondary to above factors. 7. Moderate-severe aortic stenosis by echo and by physical exam.? Question is, how much is that contributing to her CHF.? She may be reaching the point where she would benefit from a TAVR.? We will consult Cardiology. 8. We will also consult vascular and or thoracic about her ascending thoracic aortic aneurysm. 9. Metabolic alkalosis.? Secondary to end-stage COPD, along with diuresis.? I have started her on Diamox. 10. Large ventral hernia, with large hard abdominal mass.? I?ll ask surgery to comment. Stable for transfer to [facility].? Should wear CPAP at night and have a venous blood gas every morning whenever she has regular morning labs drawn. Time:? [id number]. Physical Exam Vital Signs: Vital Signs: Last Vital Signs Temp 98.8 F 05/26/21 16:00 Pulse 121 H 05/26/21 16:00 Resp 24 H 05/26/21 16:00 BP 117/64 05/26/21 16:00 Pulse Ox 93 05/26/21 16:00 Oxygen Flow Rate 5 05/25/21 12:48 Body Mass Index 36.3 Objective Data Labs CBC & Chem 7: 05/26/21 05:16 05/26/21 05:16 Labs: Laboratory Results - last 24 hr 05/25/21 05/25/21 05/25/21 18:06 18:08 21:45 WBC RBC Hgb Hct MCV MCH MCHC RDW Plt Count MPV Immature Gran % (Auto) Neut % (Auto) Lymph % (Auto) [place] % (Auto) Eos % (Auto) Baso % (Auto) Lymph # (Auto) [place] # (Auto) Eos # (Auto) Baso # (Auto) Abs Immat Gran (auto) Absolute Neuts (auto) Absolute Nucleated RBC Nucleated RBC % (auto) D-Dimer < 200 O2 Saturation 94.0 ABG pH at Pt Temp 7.34 L ABG pH (Temp Correct) 7.34 L ABG pCO2 at Pt Temp 74 H* ABG pCO2 (Temp Corrct 74 H* ABG pO2 at Pt Temp 77 L ABG pO2 (Temp Correct 78 L ABG HCO3 40 H ABG Base Excess (Actual) 10.7 VBG pH VBG pCO2 VBG pO2 VBG HCO3 VBG O2 Saturation VBG Base Excess Sodium Potassium Chloride Carbon Dioxide Anion Gap BUN Creatinine Estim Creat Clear Calc Estimated GFR Random Glucose Calcium Total Bilirubin AST ALT Alkaline Phosphatase Troponin I High Sens 22.3 H* C-Reactive Protein Total Protein Albumin 05/26/21 05/26/21 05/26/21 05:15 05:16 05:16 WBC 4.4 L RBC 4.64 Hgb 14.0 Hct 45.2 MCV 97.4 MCH 30.2 MCHC 31.0 RDW 13.4 Plt Count 186 MPV 10.1 Immature Gran % (Auto) 0.7 H Neut % (Auto) 89.8 H Lymph % (Auto) 7.9 L [place] % (Auto) 1.4 L Eos % (Auto) 0.0 Baso % (Auto) 0.2 Lymph # (Auto) 0.4 L [place] # (Auto) 0.1 Eos # (Auto) 0.0 Baso # (Auto) 0.0 Abs Immat Gran (auto) 0.03 Absolute Neuts (auto) 4.0 Absolute Nucleated RBC 0.000 Nucleated RBC % (auto) 0.0 D-Dimer O2 Saturation ABG pH at Pt Temp ABG pH (Temp Correct) ABG pCO2 at Pt Temp ABG pCO2 (Temp Corrct ABG pO2 at Pt Temp ABG pO2 (Temp Correct ABG HCO3 ABG Base Excess (Actual) VBG pH 7.37 VBG pCO2 71 VBG pO2 74 VBG HCO3 41 H VBG O2 Saturation 93.0 VBG Base Excess 12.8 Sodium 145 Potassium 4.0 Chloride 99 Carbon Dioxide 39 H Anion Gap 11 L BUN 16 Creatinine 0.71 Estim Creat Clear Calc 77.5 Estimated GFR > 60 Random Glucose 142 H Calcium 8.9 Total Bilirubin 0.7 AST 21 ALT 20 Alkaline Phosphatase 97 Troponin I High Sens C-Reactive Protein 0.42 Total Protein 6.6 Albumin 3.8 Microbiology Microbiology Results: Microbiology 05/25/21 13:21 Blood - Venous Blood Culture - Preliminary No growth after 24 hours. 05/25/21 13:08 Blood - Venous Blood Culture - Preliminary No growth after 24 hours. Quality Stroke Does the patient have a stroke diagnosis?: No VTE Prior VTE?: No VTE Risk Level:: Medical - moderate - high VTE Device Contraindication: N/A - Device Ordered VTE Drug Contraindication: N/A - Med Ordered
[2021-05-26] MEDS: clonazePAM 0.5 MG TABLET 0.25 MG PO (19:29)
[2021-05-26] MEDS: methylPREDNISolone Sod Succ 125 MG/2 ML VIAL 40 MG IVPUSH (22:20)
[2021-05-26] MEDS: Enoxaparin Sodium 40 MG/0.4 ML SYRINGE SUBCUT (23:47)
[2021-05-27] VITALS (11 sets, daily range): BP systolic 126–148; BP diastolic 63–79; PULSE 63–97; RESP 17–28; TEMP 35.7–36.9; O2SAT 87–97; BMI 36.2
[2021-05-27 05:29] LABS: VBG Base Excess 8.4 mmol/L; VBG HCO3 35 mmol/L (22-26); VBG pCO2 58 mmHg; VBG pH 7.38 (7.32-7.43); VBG pO2 65 mmHg
[2021-05-27 05:36] LABS: Hematocrit 42.9 % (37-47); Hemoglobin 13.5 g/dl (12.0-16.0); Mean Corpuscular HGB Conc 31.5 g/dl (31.0-35.0); Mean Corpuscular Hemoglobin 30.3 pg (27.0-33.0); Mean Corpuscular Volume 96.2 fL (80-98); Platelet Count 181 X10*3/uL (160-400); Red Blood Count 4.46 X10*6/uL (4.20-5.50); Red Cell Distribution Width 13.5 % (11.0-16.0); White Blood Count 13.2 X10*3/uL (4.8-10.8)
[2021-05-27 05:37] LABS: Venous Blood Gas Refer to POC result
[2021-05-27] MEDS: acetaZOLAMIDE sodium 500 MG VIAL IVPUSH ×3 (05:39→22:08)
[2021-05-27] MEDS: Levothyroxine Sodium 175 MCG TABLET PO (05:39)
[2021-05-27] MEDS: Omeprazole 20 MG CAPSULE.DR PO (05:39)
[2021-05-27 05:57] LABS: Anion Gap 11 (12-20); Blood Urea Nitrogen 26 mg/dL (9-16); Calcium 8.7 mg/dL (8.4-10.2); Carbon Dioxide 32 mmol/L (22-29); Chloride 102 mmol/L (96-108); Estimated Glomerular Filt Rate > 60; Glucose Random 124 mg/dL (60-115); Magnesium 2.5 mg/dL (1.6-2.6); Potassium 3.4 mmol/L (3.3-5.1); Sodium 142 mmol/L (135-145)
[2021-05-27 06:01] LABS: B Type Natriuretic Peptide 838 pg/mL (<100)
[2021-05-27] MEDS: Albuterol/Iprat 2.5/0.5MG 3 ML AMPUL.NEB INHALE ×2 (07:37→20:07)
[2021-05-27] MEDS: Dicyclomine HCl 10 MG CAPSULE PO ×3 (08:38→15:35)
[2021-05-27] MEDS: busPIRone HCl 5 MG TABLET 7.5 MG PO ×2 (08:38→22:09)
[2021-05-27] MEDS: Vilazodone HCL 40 MG TABLET PO (08:38)
[2021-05-27] MEDS: Furosemide 40 MG/4 ML VIAL IVPUSH ×2 (08:39→17:54)
[2021-05-27] MEDS: Atorvastatin Calcium 40 MG TABLET PO (08:39)
[2021-05-27] MEDS: Aspirin 81 MG TAB.CHEW PO (08:39)
[2021-05-27] MEDS: dilTIAZem HCL CD 120 MG CAP.ER.DEG PO ×2 (08:39→22:08)
[2021-05-27] MEDS: methylPREDNISolone Sod Succ 125 MG/2 ML VIAL 40 MG IVPUSH (08:39)
[2021-05-27] MEDS: Nicotine 21 MG PATCH.TD24 TRANSDERMA (08:40)
[2021-05-27 10:36] LABS: Adenovirus PCR Not Detected (Not Detect.); Bordetella parapertussis PCR Not Detected (Not Detect.); Bordetella pertussis PCR Not Detected (Not Detect.); Chlamydia pneumoniae PCR Not Detected (Not Detect.); Coronavirus 229E PCR Not Detected (Not Detect.); Coronavirus HKU1 PCR Not Detected (Not Detect.); Coronavirus NL63 PCR Not Detected (Not Detect.); Coronavirus OC43 PCR Not Detected (Not Detect.); Human metapneumovirus PCR Not Detected (Not Detect.); Influenza A PCR Not Detected (Not Detect.); Influenza B PCR Not Detected (Not Detect.); Mycoplasma pneumoniae PCR Not Detected (Not Detect.); Parainfluenza 1 PCR Not Detected (Not Detect.); Parainfluenza 2 PCR Not Detected (Not Detect.); Parainfluenza 3 PCR Not Detected (Not Detect.); Parainfluenza 4 PCR Not Detected (Not Detect.); RSV PCR Not Detected (Not Detect.); Rhino/Enterovirus PCR Not Detected (Not Detect.); SARS-CoV-2 PCR Not Detected (Not Detect.)
[2021-05-27 11:42] LABS: Procalcitonin < 0.05 ng/mL
--- NOTE | 2021-05-27 12:15 | PM.CNCAR ---
History of Present Illness History of Present Illness Date of Service: 05/27/21 Consult reason: aortic stenosis Chief complaint: Hypoxic hypercarpnic resp failure Narrative: This is a cardiology consultation for aortic stenosis. She is usually followed up in our office. Amanda returns for follow-up.? She has a history of aortic stenosis. In the past, she was getting admitted for chest pains as well as syncope at different times.? Then underwent myocardial perfusion imaging as well as cardiac catheterization, but that did not show any obstructive disease.? She also has aortic stenosis based on echocardiograms.? She has significant COPD and is on home oxygen.? She gets short of breath on minimal exertion and sometimes even at rest.? She also has bilateral leg swelling.? Current admission if for increasing shortness of breath and we have been asked to assess the aortic stenosis component. She is unfortunately still continuing to smoke. No anginal complaints. Review of Systems Review of Systems: Yes all other systems are reviewed and are negative Cardiovascular: Cardiovascular: Reports as per HPI, Reports no additional cardiovascular complaints, Denies acrocyanosis, Denies cool extremities, Denies painful fingertips, Denies chest pain, Denies chest pain at rest, Denies diaphoresis, Denies syncope, Denies irregular heart rhythm, Denies claudication, Denies leg edema, Denies lightheadedness, Denies palpitations and Reports dyspnea Respiratory: Respiratory: Reports dyspnea Neurologic: Denies syncope Endocrine: Endocrine: Denies palpitations [facility] Past Medical History Medical History Atherosclerotic cardiovascular disease Atrial arrhythmia Bifascicular block Chronic diastolic (congestive) heart failure COPD (chronic obstructive pulmonary disease) COPD (chronic obstructive pulmonary disease) Enuresis Nonrheumatic aortic (valve) stenosis On home oxygen therapy DHEERAJ (obstructive sleep apnea) Respiratory failure with hypoxia and hypercapnia Urge incontinence Family History Family History Father No problems noted. Mother No problems noted. Surgical History Surgical History History of umbilical hernia repair Social History Social History Household Members: None Housing: Other Housing Other:: lives alone - unsure if house or apt Unable to assess alcohol history related to: Unable to respond and Refusing to respond Alcohol intake: never Patient Tobacco Use Status: Current everyday Tobacco user Use of substances other than those prescribed or required for medical reasons: Unable to respond Currently Displaying Signs/Symptoms of Drug Intoxication Withdrawal: No Spiritual Healthcare Practices: unknown Scientologist Healthcare Practices: unknown Cultural Healthcare Practices: unknown Advance Directives: Yes (unsure of date) Advance Directives Information Provided: No Advance Directives on File: No Advance Directives Date on File: 05/25/21 Do you have thoughts of harming others: None Do you have a plan to hurt others: No Plan Recently lost weight without trying: Unsure Patient : No : No Poor oral hygiene: No service: No Current occupational status: disabled Meds Allergies Allergy/AdvReac Type Severity Reaction Status Date / Time morphine [Morphine] Allergy Unknown UNKNOWN Verified 05/25/21 12:58 Active Medications: Current Medications Generic Name Dose Route Start Last Admin Trade Name Freq PRN Reason Stop Dose Admin Acetazolamide 500 mg 05/26/21 06:01 05/27/21 05:39 Acetazolamide Sodium 500 Mg Vial IVPUSH 500 mg Q8H GERMAN Administration Albuterol/Ipratropium 3 ml 05/25/21 22:30 05/27/21 07:37 Albuterol/Iprat 2.5/0.5mg 3 Ml Ampul.Neb INHALE 3 ml RQ6H WHILE AWAKE GERMAN Administration Albuterol/Ipratropium 3 ml 05/25/21 22:13 Albuterol/Iprat 2.5/0.5mg 3 Ml Ampul.Neb INHALE RQ6H PRN sob / wheezing Aspirin 81 mg 05/26/21 09:00 05/27/21 08:39 Aspirin 81 Mg Tab.Chew PO 81 mg DAILY GERMAN Administration Atorvastatin Calcium 40 mg 05/26/21 09:00 05/27/21 08:39 Atorvastatin Calcium 40 Mg Tablet PO 40 mg DAILY GERMAN Administration Buspirone HCl 7.5 mg 05/25/21 21:36 05/27/21 08:38 Buspirone Hcl 5 Mg Tablet PO 7.5 mg BID GERMAN Administration Clonazepam 0.25 mg 05/25/21 21:36 05/26/21 19:29 Clonazepam 0.5 Mg Tablet PO 0.25 mg BEDTIME PRN Administration Sleep Dicyclomine HCl 10 mg 05/26/21 08:00 05/27/21 12:05 Dicyclomine Hcl 10 Mg Capsule PO 10 mg TIDWM GERMAN Administration Diltiazem HCl 120 mg 05/25/21 21:36 05/27/21 08:39 Diltiazem Hcl Cd 120 Mg Cap.Er.Deg PO 120 mg BID GERMAN Administration Protocol Enoxaparin Sodium 40 mg 05/25/21 23:00 05/26/21 23:47 Enoxaparin Sodium 40 Mg/0.4 Ml Syringe SUBCUT 40 mg Q24H GERMAN Administration Furosemide 40 mg 05/26/21 09:00 05/27/21 08:39 Furosemide 40 Mg/4 Ml Vial IVPUSH 40 mg BID@0900,1800 GERMAN Administration Protocol Levothyroxine Sodium 175 mcg 05/26/21 06:30 05/27/21 05:39 Levothyroxine Sodium 175 Mcg Tablet PO 175 mcg DAILY@0630 GERMAN Administration Methylprednisolone Sodium Succinate 40 mg 05/26/21 22:00 05/27/21 08:39 Methylprednisolone Sod Succ 125 Mg/2 Ml Vial IVPUSH 40 mg Q12H GERMAN Administration Nicotine 21 mg 05/26/21 09:00 05/27/21 08:40 Nicotine 21 Mg Patch.Td24 TRANSDERMA 21 mg DAILY GERMAN Administration Omeprazole 20 mg 05/26/21 06:30 05/27/21 05:39 Omeprazole 20 Mg Capsule. PO 20 mg DAILY@0630 [facility] Administration Pharmacy Consult 1 each 05/25/21 13:00 Consult Rx Perform Med Rec MISCELLANE ONCE PRN Consult order Vilazodone HCl 40 mg 05/26/21 09:00 05/27/21 08:38 Vilazodone Hcl 40 Mg Tablet PO 40 mg DAILY GERMAN Administration Home Medications Medication Instructions Recorded Confirmed Last Taken Type atorvastatin 40 mg tablet 40 mg PO DAILY tab 08/19/20 05/25/21 Unknown History diltiazem HCl 120 mg 120 mg PO BID cap 08/19/20 05/25/21 Unknown History capsule,extended release 12 hr guaifenesin 600 mg tablet, 600 mg PO BID 08/30/20 05/25/21 Unknown History extended release 12 hr (Mucinex) ipratropium 0.5 mg-albuterol 3 mg 3 ml INHALATION Q6H PRN 08/30/20 05/25/21 Unknown History (2.5 mg base)/3 mL nebulization soln tiotropium bromide 18 mcg capsule 1 cap INHALATION DAILY 08/30/20 05/25/21 Unknown History with inhalation device (Spiriva with HandiHaler) clonazepam 0.5 mg tablet 0.25 mg PO BEDTIME PRN tab 10/04/20 05/25/21 Unknown History dicyclomine 10 mg capsule 10 mg PO TIDWM cap 10/04/20 05/25/21 Unknown History levothyroxine 175 mcg tablet 175 mcg PO DAILY@0630 tab 10/04/20 05/25/21 Unknown History omeprazole 20 mg capsule,delayed 20 mg PO DAILY cap 10/04/20 05/25/21 Unknown History release vilazodone 40 mg tablet 40 mg PO DAILY tab 10/04/20 05/25/21 Unknown History lactulose 10 gram/15 mL oral 15 ml PO BID PRN 10/25/20 05/25/21 Unknown History solution furosemide 20 mg tablet 60 mg PO DAILY tab 11/30/20 05/25/21 Unknown History cyanocobalamin (vitamin B-12) 1,000 mcg IM Q30D 03/31/21 05/25/21 Unknown History 1,000 mcg/mL injection solution gabapentin 300 mg capsule 300 mg PO BEDTIME 03/31/21 05/25/21 Unknown History melatonin 5 mg tablet 5 mg PO BEDTIME PRN 03/31/21 05/25/21 Unknown History acetaminophen 325 mg tablet 650 mg PO Q4H PRN 05/25/21 05/25/21 Unknown History aspirin 81 mg chewable tablet 81 mg PO DAILY 05/25/21 05/25/21 Unknown History buspirone 7.5 mg tablet 1 tab PO BID 05/25/21 05/25/21 Unknown History fluticasone furoate 200 1 inh INHALATION BEDTIME 05/25/21 05/25/21 Unknown History mcg-vilanterol 25 mcg/dose inhalation powder (Breo Ellipta) oxybutynin chloride 15 mg 15 mg PO BID 05/25/21 05/25/21 Unknown History tablet,extended release 24 hr simethicone 80 mg chewable tablet 80 mg PO BEDTIME 05/25/21 05/25/21 Unknown History Physical Exam Vital Signs: Vital Signs: Last Vital Signs Temp 98.5 F 05/27/21 08:00 Pulse 80 05/27/21 10:23 Resp 17 05/27/21 08:00 BP 131/74 05/27/21 10:23 Pulse Ox 90 L 05/27/21 08:00 Oxygen Flow Rate 5 05/25/21 12:48 Body Mass Index 36.2 Const: General: cooperative and no acute distress HENMT: Other: Unremarkable Neck: Neck: Yes normal visual inspection Chest: Chest palpation & inspection: normal inspection of the chest Resp: Auscultation: clear to auscultation bilaterally, no crackles and no wheezes Cardio: Jugular venous distension: no JVD Palpation: normal PMI Heart sounds: S1 normal heart sound present, S2 normal heart sound present, no gallops, Murmur heart sound present (3/6 CHARISSA aortic area) and no rubs GI: Palpation (GI): Soft to palpation Back/Spine/Pelvis: Other: unremarkable Skin: General skin exam: no rashes or lesions noted Neuro: Cranial nerves: Yes Other cranial nerve findings present Extrem: General: Yes no clubbing, cyanosis or edema Psych: Mental Status: other Results Labs and Meds Result diagrams: 05/27/21 05:22 05/27/21 05:22 Lab results: Laboratory Results - last 24 hr 05/26/21 05/27/21 05/27/21 05:16 05:20 05:22 WBC 13.2 H RBC 4.46 Hgb 13.5 Hct 42.9 MCV 96.2 MCH 30.3 MCHC 31.5 RDW 13.5 Plt Count 181 MPV 10.0 Absolute Nucleated RBC 0.000 Nucleated RBC % (auto) 0.0 VBG pH 7.38 VBG pCO2 58 VBG pO2 65 VBG HCO3 35 H VBG O2 Saturation 90.0 VBG Base Excess 8.4 Sodium Potassium Chloride Carbon Dioxide Anion Gap BUN Creatinine Estim Creat Clear Calc Estimated GFR Random Glucose Calcium Phosphorus Magnesium B-Natriuretic Peptide Procalcitonin < 0.05 Respiratory Panel Friedman Adenovirus (Rapid PCR) B.pert (TEM-PCR) B.parapertussis DNA PCR C. pneumoniae DNA (PCR) Coronavirus OC43 (PCR) Coronavirus HKU1 (PCR) Coronavirus 229E (PCR) Coronavirus NL63 (PCR) Human Metapneumovir PCR Influenza A (RT-PCR) Influenza B (RT-PCR) M. pneumoniae (PCR) Parainfluenza 1 (PCR) Parainfluenza 2 (PCR) Parainfluenza 3 (PCR) Parainfluenza 4 (PCR) RSV (PCR) Entero/Rhino (PCR) SARS-CoV-2 RNA (RT-PCR) 05/27/21 05/27/21 05/27/21 05:22 05:22 10:30 WBC RBC Hgb Hct MCV MCH MCHC RDW Plt Count MPV Absolute Nucleated RBC Nucleated RBC % (auto) VBG pH VBG pCO2 VBG pO2 VBG HCO3 VBG O2 Saturation VBG Base Excess Sodium 142 Potassium 3.4 Chloride 102 Carbon Dioxide 32 H Anion Gap 11 L BUN 26 H D Creatinine 0.78 Estim Creat Clear Calc 70.0 Estimated GFR > 60 Random Glucose 124 H Calcium 8.7 Phosphorus 4.0 Magnesium 2.5 B-Natriuretic Peptide 838 H Procalcitonin Respiratory Panel Friedman See Note Adenovirus (Rapid PCR) Not Detected B.pert (TEM-PCR) Not Detected B.parapertussis DNA PCR Not Detected C. pneumoniae DNA (PCR) Not Detected Coronavirus OC43 (PCR) Not Detected Coronavirus HKU1 (PCR) Not Detected Coronavirus 229E (PCR) Not Detected Coronavirus NL63 (PCR) Not Detected Human Metapneumovir PCR Not Detected Influenza A (RT-PCR) Not Detected Influenza B (RT-PCR) Not Detected M. pneumoniae (PCR) Not Detected Parainfluenza 1 (PCR) Not Detected Parainfluenza 2 (PCR) Not Detected Parainfluenza 3 (PCR) Not Detected Parainfluenza 4 (PCR) Not Detected RSV (PCR) Not Detected Entero/Rhino (PCR) Not Detected SARS-CoV-2 RNA (RT-PCR) Not Detected Assessment and Plan (1) Acute on chronic diastolic (congestive) heart failure: Status: Acute (2) Nonrheumatic aortic (valve) stenosis: Status: Acute (3) Acute on chronic respiratory failure with hypoxia and hypercapnia: Status: Acute Pertinent data reviewed. In the recent echocardiogram, LVEF was 60-65%. With regard to the aortic valve, the mean gradient was 25 mm with a peak of 43 mm Hg. Calculated valve area was 1.18 sq cm. Dimensionless index was 0.38. Based on these parameters, this is still moderate aortic stenosis. EKG this admission showed sinus rhythm, 90/Min; left anterior fascicular block and right bundle-branch block, PACs. On telemetry, there seem to be frequent PACs. Labs reviewed. Creatinine is 0.78. High sensitive troponins are 19.9 and 22.3. Cardiac BNP is 838. On admission was 562. In October it was 228. CT chest findings reviewed as well. Overall, her symptoms are primarily respiratory in nature. The aortic stenosis is an additional problem but based on the hemodynamic parameters, does not appear to be the primary issue. Agree with empiric diuretics as you currently are administering for any heart failure component. Otherwise with regard to any intervention of the valve, not indicated at this time. Will follow with you. Procedures Date of Service Date of Service: 05/27/21
--- NOTE | 2021-05-27 12:29 | P.PNIM_ITS ---
Subjective Subjective Date of Service: 05/27/21 Interval History: Physically in ICU but downgraded to IMC status overnight. Off BiPAP all night. C/o headache, ongoing dyspnea. Did not tolerate facial mask in past but did not try nasal pillow. Review of Systems Review of Systems: Yes all other systems are reviewed and are negative Physical Exam Vital Signs: Vital Signs: Last Vital Signs Temp 98.1 F 05/27/21 12:00 Pulse 97 05/27/21 12:00 Resp 28 H 05/27/21 12:00 BP 141/70 H 05/27/21 12:00 Pulse Ox 90 L 05/27/21 12:00 Oxygen Flow Rate 5 05/25/21 12:48 Body Mass Index 36.2 Gen: mild respiratory distress HEENT: sclera anicteric, moist mucus membranes Neck: supple Lungs: diminished bilaterally Heart: regular rate and rhythm, no murmurs Abd: obese; ventral hernia upper abd; seroma lower abd Ext: 1+ LE edema bilaterally Skin: warm/well-perfused Neuro: alert and oriented x3, no focal findings Psych: appropriate affect Objective Data Current Medications Generic Name Dose Route Start Last Admin Trade Name Freq PRN Reason Stop Dose Admin Acetazolamide 500 mg 05/26/21 06:01 05/27/21 05:39 Acetazolamide Sodium 500 Mg Vial IVPUSH 500 mg Q8H GERMAN Administration Albuterol/Ipratropium 3 ml 05/25/21 22:30 05/27/21 07:37 Albuterol/Iprat 2.5/0.5mg 3 Ml Ampul.Neb INHALE 3 ml RQ6H WHILE AWAKE GERMAN Administration Albuterol/Ipratropium 3 ml 05/25/21 22:13 Albuterol/Iprat 2.5/0.5mg 3 Ml Ampul.Neb INHALE RQ6H PRN sob / wheezing Aspirin 81 mg 05/26/21 09:00 05/27/21 08:39 Aspirin 81 Mg Tab.Chew PO 81 mg DAILY GERMAN Administration Atorvastatin Calcium 40 mg 05/26/21 09:00 05/27/21 08:39 Atorvastatin Calcium 40 Mg Tablet PO 40 mg DAILY GERMAN Administration Buspirone HCl 7.5 mg 05/25/21 21:36 05/27/21 08:38 Buspirone Hcl 5 Mg Tablet PO 7.5 mg BID GERMAN Administration Clonazepam 0.25 mg 05/25/21 21:36 05/26/21 19:29 Clonazepam 0.5 Mg Tablet PO 0.25 mg BEDTIME PRN Administration Sleep Dicyclomine HCl 10 mg 05/26/21 08:00 05/27/21 12:05 Dicyclomine Hcl 10 Mg Capsule PO 10 mg TIDWM GERMAN Administration Diltiazem HCl 120 mg 05/25/21 21:36 05/27/21 08:39 Diltiazem Hcl Cd 120 Mg Cap.Er.Deg PO 120 mg BID GERMAN Administration Protocol Enoxaparin Sodium 40 mg 05/25/21 23:00 05/26/21 23:47 Enoxaparin Sodium 40 Mg/0.4 Ml Syringe SUBCUT 40 mg Q24H GERMAN Administration Furosemide 40 mg 05/26/21 09:00 05/27/21 08:39 Furosemide 40 Mg/4 Ml Vial IVPUSH 40 mg BID@0900,1800 GERMAN Administration Protocol Levothyroxine Sodium 175 mcg 05/26/21 06:30 05/27/21 05:39 Levothyroxine Sodium 175 Mcg Tablet PO 175 mcg DAILY@0630 GERMAN Administration Methylprednisolone Sodium Succinate 40 mg 05/26/21 22:00 05/27/21 08:39 Methylprednisolone Sod Succ 125 Mg/2 Ml Vial IVPUSH 40 mg Q12H GERMAN Administration Nicotine 21 mg 05/26/21 09:00 05/27/21 08:40 Nicotine 21 Mg Patch.Td24 TRANSDERMA 21 mg DAILY GERMAN Administration Omeprazole 20 mg 05/26/21 06:30 05/27/21 05:39 Omeprazole 20 Mg Capsule. PO 20 mg DAILY@0630 [facility] Administration Pharmacy Consult 1 each 05/25/21 13:00 Consult Rx Perform Med Rec MISCELLANE ONCE PRN Consult order Vilazodone HCl 40 mg 05/26/21 09:00 05/27/21 08:38 Vilazodone Hcl 40 Mg Tablet PO 40 mg DAILY GERMAN Administration Labs CBC & Chem 7: 05/27/21 05:22 05/27/21 05:22 Labs: Laboratory Results - last 24 hr 05/26/21 05/27/21 05/27/21 05:16 05:20 05:22 MCV 96.2 MCH 30.3 MCHC 31.5 RDW 13.5 Plt Count 181 MPV 10.0 Absolute Nucleated RBC 0.000 Nucleated RBC % (auto) 0.0 VBG pH 7.38 VBG pCO2 58 VBG pO2 65 VBG HCO3 35 H VBG O2 Saturation 90.0 VBG Base Excess 8.4 Anion Gap Estim Creat Clear Calc Estimated GFR Random Glucose Calcium Phosphorus Magnesium B-Natriuretic Peptide Procalcitonin < 0.05 Respiratory Panel Friedman Adenovirus (Rapid PCR) B.pert (TEM-PCR) B.parapertussis DNA PCR C. pneumoniae DNA (PCR) Coronavirus OC43 (PCR) Coronavirus HKU1 (PCR) Coronavirus 229E (PCR) Coronavirus NL63 (PCR) Human Metapneumovir PCR Influenza A (RT-PCR) Influenza B (RT-PCR) M. pneumoniae (PCR) Parainfluenza 1 (PCR) Parainfluenza 2 (PCR) Parainfluenza 3 (PCR) Parainfluenza 4 (PCR) RSV (PCR) Entero/Rhino (PCR) SARS-CoV-2 RNA (RT-PCR) 05/27/21 05/27/21 05/27/21 05:22 05:22 10:30 MCV MCH MCHC RDW Plt Count MPV Absolute Nucleated RBC Nucleated RBC % (auto) VBG pH VBG pCO2 VBG pO2 VBG HCO3 VBG O2 Saturation VBG Base Excess Anion Gap 11 L Estim Creat Clear Calc 70.0 Estimated GFR > 60 Random Glucose 124 H Calcium 8.7 Phosphorus 4.0 Magnesium 2.5 B-Natriuretic Peptide 838 H Procalcitonin Respiratory Panel Friedman See Note Adenovirus (Rapid PCR) Not Detected B.pert (TEM-PCR) Not Detected B.parapertussis DNA PCR Not Detected C. pneumoniae DNA (PCR) Not Detected Coronavirus OC43 (PCR) Not Detected Coronavirus HKU1 (PCR) Not Detected Coronavirus 229E (PCR) Not Detected Coronavirus NL63 (PCR) Not Detected Human Metapneumovir PCR Not Detected Influenza A (RT-PCR) Not Detected Influenza B (RT-PCR) Not Detected M. pneumoniae (PCR) Not Detected Parainfluenza 1 (PCR) Not Detected Parainfluenza 2 (PCR) Not Detected Parainfluenza 3 (PCR) Not Detected Parainfluenza 4 (PCR) Not Detected RSV (PCR) Not Detected Entero/Rhino (PCR) Not Detected SARS-CoV-2 RNA (RT-PCR) Not Detected Microbiology Microbiology Results: Microbiology 05/25/21 13:21 Blood Culture - Preliminary Blood - Venous No growth after 24 hours. 05/25/21 13:08 Blood Culture - Preliminary Blood - Venous No growth after 24 hours. 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 Negative 4.25L thus far this admission. Cardiology consulted. # metabolic alkalosis - continue acetazolamide # DHEERAJ - should use CPAP at night; will obtain Pulm consult + overnight oximetry test # - Cardiology consulted, no invasive intervention required at this time; continue to diurese # tobacco abuse - NRT # ventral hernia # abd wall seroma - Surg consulted, no intervention required, give stool regimen for constipation # ascending thoracic aortic aneurysm - Vascular consult # atrial tachycardia - continue diltiazem # CAD - continue atorvastatin +ASA # hypothyroidism - continue LT4 # IBS - continue dicyclomine # mood disorder - continue vilazodone, buspirone # VTE ppx - LMWH # dispo - eventual home with VNA Quality Stroke Does the patient have a stroke diagnosis?: No VTE Prior VTE?: No VTE Risk Level:: Medical - moderate - high VTE Device Contraindication: N/A - Device Ordered VTE Drug Contraindication: N/A - Med Ordered
--- NOTE | 2021-05-27 12:29 | PM.CNGS ---
History of Present Illness Consult details Consult date: 05/27/21 Reason for consult: hernia (With mass of abdominal wall) Requesting physician: Angus Esteban Narrative: This is a 71-year-old female with a history of end-stage COPD admitted with acute on chronic respiratory failure. The general surgery service has been asked to assess her because the presence of a firm mass in the lower abdominal wall. She has a history of incisional hernia and has undergone multiple procedures for repair. The last repair was performed in 2010 at the time of laparotomy for small-bowel obstruction. She has developed recurrent hernias along the margin of the mesh in the upper and lower aspect of the repair. A nonobstructed loop of colon has been noted in the upper defect on CT scan in the past. She also has a chronic seroma in the subcutaneous tissues around the lower aspect of the repair. Her respiratory symptoms are improved today. She reports that she is tired. She gives a long history of generalized diffuse abdominal discomfort and constipation. She also reports generalized chest discomfort. She has an extensive past medical history including obstructive sleep apnea, oxygen-dependent COPD, moderate aortic stenosis and aneurysm of the ascending aorta, congestive heart failure, GERD, hypothyroidism. Review of Systems Constitutional: Constitutional: Reports body ache(s) and Reports fatigue Eyes: Eyes: Reports requires corrective lenses Cardiovascular: Cardiovascular: Reports chest pain (Diffuse, chronic) and Reports dyspnea Respiratory: Respiratory: Denies cough and Reports dyspnea Gastrointestinal: Gastrointestinal: Reports constipation (Chronic), Denies nausea and Denies vomiting Neurologic: Reports burning sensations (Lower extremities, left greater than right) Endocrine: Endocrine: Reports fatigue PMFSH Past Medical History Medical History Atherosclerotic cardiovascular disease Atrial arrhythmia Bifascicular block Chronic diastolic (congestive) heart failure COPD (chronic obstructive pulmonary disease) COPD (chronic obstructive pulmonary disease) Enuresis Nonrheumatic aortic (valve) stenosis On home oxygen therapy DHEERAJ (obstructive sleep apnea) Respiratory failure with hypoxia and hypercapnia Urge incontinence Family History Family History Father No problems noted. Mother No problems noted. Surgical History Surgical History History of umbilical hernia repair Social History Social History Household Members: None Housing: Other Housing Other:: lives alone - unsure if house or apt Unable to assess alcohol history related to: Unable to respond and Refusing to respond Alcohol intake: never Patient Tobacco Use Status: Current everyday Tobacco user Use of substances other than those prescribed or required for medical reasons: Unable to respond Currently Displaying Signs/Symptoms of Drug Intoxication Withdrawal: No Spiritual Healthcare Practices: unknown Hoahaoism Healthcare Practices: unknown Cultural Healthcare Practices: unknown Advance Directives: Yes (unsure of date) Advance Directives Information Provided: No Advance Directives on File: No Advance Directives Date on File: 05/25/21 Do you have thoughts of harming others: None Do you have a plan to hurt others: No Plan Recently lost weight without trying: Unsure Patient : No : No Poor oral hygiene: No service: No Current occupational status: disabled Meds Allergies Allergy/AdvReac Type Severity Reaction Status Date / Time morphine [Morphine] Allergy Unknown UNKNOWN Verified 05/25/21 12:58 Active Medications: Current Medications Generic Name Dose Route Start Last Admin Trade Name Freq PRN Reason Stop Dose Admin Acetazolamide 500 mg 05/26/21 06:01 05/27/21 05:39 Acetazolamide Sodium 500 Mg Vial IVPUSH 500 mg Q8H GERMAN Administration Albuterol/Ipratropium 3 ml 05/25/21 22:30 05/27/21 07:37 Albuterol/Iprat 2.5/0.5mg 3 Ml Ampul.Neb INHALE 3 ml RQ6H WHILE AWAKE GERMAN Administration Albuterol/Ipratropium 3 ml 05/25/21 22:13 Albuterol/Iprat 2.5/0.5mg 3 Ml Ampul.Neb INHALE RQ6H PRN sob / wheezing Aspirin 81 mg 05/26/21 09:00 05/27/21 08:39 Aspirin 81 Mg Tab.Chew PO 81 mg DAILY GERMAN Administration Atorvastatin Calcium 40 mg 05/26/21 09:00 05/27/21 08:39 Atorvastatin Calcium 40 Mg Tablet PO 40 mg DAILY GERMAN Administration Buspirone HCl 7.5 mg 05/25/21 21:36 05/27/21 08:38 Buspirone Hcl 5 Mg Tablet PO 7.5 mg BID GERMAN Administration Clonazepam 0.25 mg 05/25/21 21:36 05/26/21 19:29 Clonazepam 0.5 Mg Tablet PO 0.25 mg BEDTIME PRN Administration Sleep Dicyclomine HCl 10 mg 05/26/21 08:00 05/27/21 12:05 Dicyclomine Hcl 10 Mg Capsule PO 10 mg TIDWM GERMAN Administration Diltiazem HCl 120 mg 05/25/21 21:36 05/27/21 08:39 Diltiazem Hcl Cd 120 Mg Cap.Er.Deg PO 120 mg BID GERMAN Administration Protocol Enoxaparin Sodium 40 mg 05/25/21 23:00 05/26/21 23:47 Enoxaparin Sodium 40 Mg/0.4 Ml Syringe SUBCUT 40 mg Q24H GERMAN Administration Furosemide 40 mg 05/26/21 09:00 05/27/21 08:39 Furosemide 40 Mg/4 Ml Vial IVPUSH 40 mg BID@0900,1800 GERMAN Administration Protocol Levothyroxine Sodium 175 mcg 05/26/21 06:30 05/27/21 05:39 Levothyroxine Sodium 175 Mcg Tablet PO 175 mcg DAILY@0630 GERMAN Administration Methylprednisolone Sodium Succinate 40 mg 05/26/21 22:00 05/27/21 08:39 Methylprednisolone Sod Succ 125 Mg/2 Ml Vial IVPUSH 40 mg Q12H GERMAN Administration Nicotine 21 mg 05/26/21 09:00 05/27/21 08:40 Nicotine 21 Mg Patch.Td24 TRANSDERMA 21 mg DAILY GERMAN Administration Omeprazole 20 mg 05/26/21 06:30 05/27/21 05:39 Omeprazole 20 Mg Capsule. PO 20 mg DAILY@0630 [facility] Administration Pharmacy Consult 1 each 05/25/21 13:00 Consult Rx Perform Med Rec MISCELLANE ONCE PRN Consult order Vilazodone HCl 40 mg 05/26/21 09:00 05/27/21 08:38 Vilazodone Hcl 40 Mg Tablet PO 40 mg DAILY GERMAN Administration Home Medications Medication Instructions Recorded Confirmed Last Taken Type atorvastatin 40 mg tablet 40 mg PO DAILY tab 08/19/20 05/25/21 Unknown History diltiazem HCl 120 mg 120 mg PO BID cap 08/19/20 05/25/21 Unknown History capsule,extended release 12 hr guaifenesin 600 mg tablet, 600 mg PO BID 08/30/20 05/25/21 Unknown History extended release 12 hr (Mucinex) ipratropium 0.5 mg-albuterol 3 mg 3 ml INHALATION Q6H PRN 08/30/20 05/25/21 Unknown History (2.5 mg base)/3 mL nebulization soln tiotropium bromide 18 mcg capsule 1 cap INHALATION DAILY 08/30/20 05/25/21 Unknown History with inhalation device (Spiriva with HandiHaler) clonazepam 0.5 mg tablet 0.25 mg PO BEDTIME PRN tab 10/04/20 05/25/21 Unknown History dicyclomine 10 mg capsule 10 mg PO TIDWM cap 10/04/20 05/25/21 Unknown History levothyroxine 175 mcg tablet 175 mcg PO DAILY@0630 tab 10/04/20 05/25/21 Unknown History omeprazole 20 mg capsule,delayed 20 mg PO DAILY cap 10/04/20 05/25/21 Unknown History release vilazodone 40 mg tablet 40 mg PO DAILY tab 10/04/20 05/25/21 Unknown History lactulose 10 gram/15 mL oral 15 ml PO BID PRN 10/25/20 05/25/21 Unknown History solution furosemide 20 mg tablet 60 mg PO DAILY tab 11/30/20 05/25/21 Unknown History cyanocobalamin (vitamin B-12) 1,000 mcg IM Q30D 03/31/21 05/25/21 Unknown History 1,000 mcg/mL injection solution gabapentin 300 mg capsule 300 mg PO BEDTIME 03/31/21 05/25/21 Unknown History melatonin 5 mg tablet 5 mg PO BEDTIME PRN 03/31/21 05/25/21 Unknown History acetaminophen 325 mg tablet 650 mg PO Q4H PRN 05/25/21 05/25/21 Unknown History aspirin 81 mg chewable tablet 81 mg PO DAILY 05/25/21 05/25/21 Unknown History buspirone 7.5 mg tablet 1 tab PO BID 05/25/21 05/25/21 Unknown History fluticasone furoate 200 1 inh INHALATION BEDTIME 05/25/21 05/25/21 Unknown History mcg-vilanterol 25 mcg/dose inhalation powder (Breo Ellipta) oxybutynin chloride 15 mg 15 mg PO BID 05/25/21 05/25/21 Unknown History tablet,extended release 24 hr simethicone 80 mg chewable tablet 80 mg PO BEDTIME 05/25/21 05/25/21 Unknown History Physical Exam Vital Signs: Vital Signs: Last Vital Signs Temp 98.1 F 05/27/21 12:00 Pulse 97 05/27/21 12:00 Resp 28 H 05/27/21 12:00 BP 141/70 H 05/27/21 12:00 Pulse Ox 90 L 05/27/21 12:00 Oxygen Flow Rate 5 05/25/21 12:48 Body Mass Index 36.2 Const: General: no acute distress, alert and awake HENMT: Head: Yes normocephalic and Yes atraumatic Eyes: EOM: EOMs intact bilaterally Resp: Effort & Inspection: normal respiratory effort Auscultation: clear to auscultation bilaterally Cardio: Rate: regular rate Rhythm: regular rhythm GI: Other: Round, soft, mild generalized tenderness. Palpable mass upper abdomen consistent with recurrent hernia defect containing stool filled colon. Nontender smooth mass subcutaneous tissues lower abdominal wall consistent with known chronic seroma. Dressing present lower midline in the lower abdominal fold Skin: Other: Normal color, warm and dry Extrem: Other: Lower extremities are warm, edema present left greater than right, no erythema, normal dorsalis pedis and posterior tibial pulses on the right and normal posterior tibial on the left Results Labs Result diagrams: 05/27/21 05:22 05/27/21 05:22 Labs: Abnormal lab results 05/27/21 05/27/21 05/27/21 Range/Units 05:20 05:22 05:22 WBC 13.2 H (4.8-10.8) X10*3/uL VBG HCO3 35 H (22-26) mmol/L Carbon Dioxide 32 H (22-29) mmol/L Anion Gap 11 L (12-20) BUN 26 H D (9-16) mg/dL Random Glucose 124 H (60-115) mg/dL B-Natriuretic Peptide (<100) pg/mL 05/27/21 Range/Units 05:22 WBC (4.8-10.8) X10*3/uL VBG HCO3 (22-26) mmol/L Carbon Dioxide (22-29) mmol/L Anion Gap (12-20) BUN (9-16) mg/dL Random Glucose (60-115) mg/dL B-Natriuretic Peptide 838 H (<100) pg/mL Short CBC 05/27/21 Range/Units 05:22 WBC 13.2 H (4.8-10.8) X10*3/uL Hgb 13.5 (12.0-16.0) g/dl Hct 42.9 (37-47) % Plt Count 181 (160-400) X10*3/uL BMP 05/27/21 05:22 Sodium 142 Potassium 3.4 Chloride 102 Carbon Dioxide 32 H BUN 26 H D Creatinine 0.78 Calcium 8.7 Urine 05/25/21 Range/Units 14:41 Urine Color YELLOW Urine Appearance CLEAR Urine pH 6.0 (5.0-8.0) Ur Specific [place] 1.010 (1.005-1.025) Urine Protein NEG (NEG-TRACE) MG/DL Urine Glucose (UA) NEG (NEG) MG/DL All other labs normal. Imaging Chest x-ray: report reviewed Abdomen CT scan report/results: report reviewed and image reviewed (Study done in 2019) Assessment and Plan (1) Recurrent incisional hernia: Status: Acute (2) Acute on chronic respiratory failure with hypoxia and hypercapnia: Status: Acute (3) Acute on chronic diastolic (congestive) heart failure: Status: Acute 71-year-old female admitted with acute on chronic respiratory failure and CHF. She has a known recurrent incisional hernia and known seroma of the lower abdominal wall. She has had multiple attempts at repair in the past and is not a surgical candidate at this time. She does have significant constipation. Will add stool softeners. May require gentle enemas and oral laxatives depending upon progress. Procedures Date of Service Date of Service: 05/27/21
--- NOTE | 2021-05-27 14:35 | HO.VASCH&P ---
History of Present Illness History of Present Illness Date of Service: 05/27/21 Chief complaint: Hypoxic hypercarpnic resp failure Narrative: Amanda Maradiaga is a 71 year old female admitted yesterday because of acute on chronic respiratory failure. She does have a long history of CHF, and COPD. She came in with bilateral infiltrates and a CAT scan was ordered which showed an incidental finding of a 4.5 cm ascending aortic aneurysm. The patient has chronic chest complaints in view of her COPD and CHF. She also has chronic abdominal discomfort when you have a chronic hernia. Vascular surgery was consulted because of this incidental finding of an aortic aneurysm. Patient is not a very good historian at this time although she does answer some simple questions. It is unclear as to whether she was aware of this aneurysm or if she had been worked up for this in the past. Review of Systems Constitutional: Constitutional: Denies chills, Denies fever(s), Reports lethargy and Reports malaise Cardiovascular: Cardiovascular: Denies chest pain, Reports dyspnea and Reports dyspnea on exertion Respiratory: Respiratory: Denies cough, Reports dyspnea and Reports dyspnea on exertion Gastrointestinal: Gastrointestinal: Denies hematochezia and Denies change in bowel habits Genitourinary: Genitourinary: Denies hematuria Musculoskeletal: Musculoskeletal: Denies back pain and Denies limited range of motion Neurologic: Denies focal weakness and Denies convulsions Psychiatric: Psychiatric: Denies depression and Denies mood swings [facility] [place] Past Medical History Medical History (Updated 05/27/21 @ 14:40 by Danny Espitia MD) Atherosclerotic cardiovascular disease Atrial arrhythmia Bifascicular block Chronic diastolic (congestive) heart failure COPD (chronic obstructive pulmonary disease) COPD (chronic obstructive pulmonary disease) Enuresis Nonrheumatic aortic (valve) stenosis On home oxygen therapy DHEERAJ (obstructive sleep apnea) Respiratory failure with hypoxia and hypercapnia Thoracic aortic aneurysm (TAA) Urge incontinence Family History Family History Father No problems noted. Mother No problems noted. Surgical History Surgical History History of umbilical hernia repair Social History Social History Household Members: None Housing: Other Housing Other:: lives alone - unsure if house or apt Unable to assess alcohol history related to: Unable to respond and Refusing to respond Alcohol intake: never Patient Tobacco Use Status: Current everyday Tobacco user Use of substances other than those prescribed or required for medical reasons: Unable to respond Currently Displaying Signs/Symptoms of Drug Intoxication Withdrawal: No Spiritual Healthcare Practices: unknown Protestant Healthcare Practices: unknown Cultural Healthcare Practices: unknown Advance Directives: Yes (unsure of date) Advance Directives Information Provided: No Advance Directives on File: No Advance Directives Date on File: 05/25/21 Do you have thoughts of harming others: None Do you have a plan to hurt others: No Plan Recently lost weight without trying: Unsure Patient : No : No Poor oral hygiene: No service: No Current occupational status: disabled Meds Allergies Allergy/AdvReac Type Severity Reaction Status Date / Time morphine [Morphine] Allergy Unknown UNKNOWN Verified 05/25/21 12:58 Active Medications: Current Medications Generic Name Dose Route Start Last Admin Trade Name Freq PRN Reason Stop Dose Admin Acetazolamide 500 mg 05/26/21 06:01 05/27/21 05:39 Acetazolamide Sodium 500 Mg Vial IVPUSH 500 mg Q8H GERMAN Administration Albuterol/Ipratropium 3 ml 05/25/21 22:30 05/27/21 07:37 Albuterol/Iprat 2.5/0.5mg 3 Ml Ampul.Neb INHALE 3 ml RQ6H WHILE AWAKE GERMAN Administration Albuterol/Ipratropium 3 ml 05/25/21 22:13 Albuterol/Iprat 2.5/0.5mg 3 Ml Ampul.Neb INHALE RQ6H PRN sob / wheezing Aspirin 81 mg 05/26/21 09:00 05/27/21 08:39 Aspirin 81 Mg Tab.Chew PO 81 mg DAILY GERMAN Administration Atorvastatin Calcium 40 mg 05/26/21 09:00 05/27/21 08:39 Atorvastatin Calcium 40 Mg Tablet PO 40 mg DAILY GERMAN Administration Buspirone HCl 7.5 mg 05/25/21 21:36 05/27/21 08:38 Buspirone Hcl 5 Mg Tablet PO 7.5 mg BID GERMAN Administration Clonazepam 0.25 mg 05/25/21 21:36 05/26/21 19:29 Clonazepam 0.5 Mg Tablet PO 0.25 mg BEDTIME PRN Administration Sleep Dicyclomine HCl 10 mg 05/26/21 08:00 05/27/21 12:05 Dicyclomine Hcl 10 Mg Capsule PO 10 mg TIDWM GERMAN Administration Diltiazem HCl 120 mg 05/25/21 21:36 05/27/21 08:39 Diltiazem Hcl Cd 120 Mg Cap.Er.Deg PO 120 mg BID GERMAN Administration Protocol Docusate Sodium 100 mg 05/27/21 13:45 Docusate Sodium 100 Mg Capsule PO BID [facility] Enoxaparin Sodium 40 mg 05/25/21 23:00 05/26/21 23:47 Enoxaparin Sodium 40 Mg/0.4 Ml Syringe SUBCUT 40 mg Q24H GERMAN Administration Furosemide 40 mg 05/26/21 09:00 05/27/21 08:39 Furosemide 40 Mg/4 Ml Vial IVPUSH 40 mg BID@0900,1800 GERMAN Administration Protocol Levothyroxine Sodium 175 mcg 05/26/21 06:30 05/27/21 05:39 Levothyroxine Sodium 175 Mcg Tablet PO 175 mcg DAILY@0630 GERMAN Administration Methylprednisolone Sodium Succinate 40 mg 05/26/21 22:00 05/27/21 08:39 Methylprednisolone Sod Succ 125 Mg/2 Ml Vial IVPUSH 40 mg Q12H GERMAN Administration Nicotine 21 mg 05/26/21 09:00 05/27/21 08:40 Nicotine 21 Mg Patch.Td24 TRANSDERMA 21 mg DAILY GERMAN Administration Omeprazole 20 mg 05/26/21 06:30 05/27/21 05:39 Omeprazole 20 Mg Capsule. PO 20 mg DAILY@0630 GERMAN Administration Oxycodone HCl 5 mg 05/27/21 13:20 Oxycodone Hcl Immed Release 5 Mg Tablet PO Q4H PRN severe pain Pharmacy Consult 1 each 05/25/21 13:00 Consult Rx Perform Med Rec MISCELLANE ONCE PRN Consult order Vilazodone HCl 40 mg 05/26/21 09:00 05/27/21 08:38 Vilazodone Hcl 40 Mg Tablet PO 40 mg DAILY GERMAN Administration Home Medications Medication Instructions Recorded Confirmed Last Taken Type atorvastatin 40 mg tablet 40 mg PO DAILY tab 08/19/20 05/25/21 Unknown History diltiazem HCl 120 mg 120 mg PO BID cap 08/19/20 05/25/21 Unknown History capsule,extended release 12 hr guaifenesin 600 mg tablet, 600 mg PO BID 08/30/20 05/25/21 Unknown History extended release 12 hr (Mucinex) ipratropium 0.5 mg-albuterol 3 mg 3 ml INHALATION Q6H PRN 08/30/20 05/25/21 Unknown History (2.5 mg base)/3 mL nebulization soln tiotropium bromide 18 mcg capsule 1 cap INHALATION DAILY 08/30/20 05/25/21 Unknown History with inhalation device (Spiriva with HandiHaler) clonazepam 0.5 mg tablet 0.25 mg PO BEDTIME PRN tab 10/04/20 05/25/21 Unknown History dicyclomine 10 mg capsule 10 mg PO TIDWM cap 10/04/20 05/25/21 Unknown History levothyroxine 175 mcg tablet 175 mcg PO DAILY@0630 tab 10/04/20 05/25/21 Unknown History omeprazole 20 mg capsule,delayed 20 mg PO DAILY cap 10/04/20 05/25/21 Unknown History release vilazodone 40 mg tablet 40 mg PO DAILY tab 10/04/20 05/25/21 Unknown History lactulose 10 gram/15 mL oral 15 ml PO BID PRN 10/25/20 05/25/21 Unknown History solution furosemide 20 mg tablet 60 mg PO DAILY tab 11/30/20 05/25/21 Unknown History cyanocobalamin (vitamin B-12) 1,000 mcg IM Q30D 03/31/21 05/25/21 Unknown History 1,000 mcg/mL injection solution gabapentin 300 mg capsule 300 mg PO BEDTIME 03/31/21 05/25/21 Unknown History melatonin 5 mg tablet 5 mg PO BEDTIME PRN 03/31/21 05/25/21 Unknown History acetaminophen 325 mg tablet 650 mg PO Q4H PRN 05/25/21 05/25/21 Unknown History aspirin 81 mg chewable tablet 81 mg PO DAILY 05/25/21 05/25/21 Unknown History buspirone 7.5 mg tablet 1 tab PO BID 05/25/21 05/25/21 Unknown History fluticasone furoate 200 1 inh INHALATION BEDTIME 05/25/21 05/25/21 Unknown History mcg-vilanterol 25 mcg/dose inhalation powder (Breo Ellipta) oxybutynin chloride 15 mg 15 mg PO BID 05/25/21 05/25/21 Unknown History tablet,extended release 24 hr simethicone 80 mg chewable tablet 80 mg PO BEDTIME 05/25/21 05/25/21 Unknown History Physical Exam Vital Signs: Vital Signs: Last Vital Signs Temp 98.1 F 05/27/21 12:00 Pulse 97 05/27/21 12:00 Resp 28 H 05/27/21 12:00 BP 141/70 H 05/27/21 12:00 Pulse Ox 90 L 05/27/21 12:00 Oxygen Flow Rate 5 05/25/21 12:48 Body Mass Index 36.2 Const: Other: Appears short of breath General: comfortable Orientation/consciousness: patient oriented x3 Neck: Neck: Yes no lymphadenopathy Resp: Other: Appears a little short of breath Auscultation: wheezes Cardio: Rhythm: regular rhythm GI: Other: Has a large abdominal wall hernia on the midline, partially reducible appears chronic Palpation (GI): Soft to palpation, nontender and no guarding Neuro: General: patient oriented x3 Results Results Labs: Short CBC 05/27/21 Range/Units 05:22 WBC 13.2 H (4.8-10.8) X10*3/uL Hgb 13.5 (12.0-16.0) g/dl Hct 42.9 (37-47) % Plt Count 181 (160-400) X10*3/uL BMP 05/27/21 05:22 Sodium 142 Potassium 3.4 Chloride 102 Carbon Dioxide 32 H BUN 26 H D Creatinine 0.78 Calcium 8.7 Urine 05/25/21 Range/Units 14:41 Urine Color YELLOW Urine Appearance CLEAR Urine pH 6.0 (5.0-8.0) Ur Specific [place] 1.010 (1.005-1.025) Urine Protein NEG (NEG-TRACE) MG/DL Urine Glucose (UA) NEG (NEG) MG/DL CT scan - chest: report reviewed and image reviewed Assessment and Plan (1) Thoracic aortic aneurysm (TAA): Status: Acute She has a 4.5 cm ascending thoracic aortic aneurysm. Skin lines recommend repair of aneurysms 5.5 cm in diameter or if with more than 5 mm increase every year. She does not appear to be meeting these guidelines although I am uncertain as to whether she had previous imaging studies for this. She also has multiple medical problems right now including CHF and I am uncertain if she is a candidate at all for repair of this aneurysm. I will inform Dr. Martins of this consultation when he comes back. I have discussed the above with the grain elevator clerk. Quality Stroke Does the patient have a stroke diagnosis?: No VTE Prior VTE?: No VTE Risk Level:: Medical - moderate - high VTE Device Contraindication: N/A - Device Ordered VTE Drug Contraindication: N/A - Med Ordered Procedures Date of Service Date of Service: 05/27/21
[2021-05-27] MEDS: Docusate Sodium 100 MG CAPSULE PO ×2 (15:35→22:08)
[2021-05-27] MEDS: oxyCODONE HCl Immed Release 5 MG TABLET PO (15:37)
[2021-05-27] MEDS: methylPREDNISolone Sod Succ 40 MG/ML VIAL IVPUSH (22:08)
[2021-05-27] MEDS: Enoxaparin Sodium 40 MG/0.4 ML SYRINGE SUBCUT (22:09)
[2021-05-28] VITALS (12 sets, daily range): BP systolic 149–180; BP diastolic 73–90; PULSE 69–113; RESP 18–24; TEMP 36.3–36.9; O2SAT 85–94
[2021-05-28 05:45] LABS: Anion Gap 13 (12-20); Blood Urea Nitrogen 31 mg/dL (9-16); Calcium 8.8 mg/dL (8.4-10.2); Carbon Dioxide 31 mmol/L (22-29); Chloride 104 mmol/L (96-108); Estimated Glomerular Filt Rate > 60; Glucose Random 134 mg/dL (60-115); Magnesium 2.8 mg/dL (1.6-2.6); Potassium 3.6 mmol/L (3.3-5.1); Sodium 144 mmol/L (135-145)
[2021-05-28] MEDS: Levothyroxine Sodium 175 MCG TABLET PO (05:48)
[2021-05-28] MEDS: acetaZOLAMIDE sodium 500 MG VIAL IVPUSH ×2 (05:48→14:25)
[2021-05-28] MEDS: Omeprazole 20 MG CAPSULE.DR PO (05:48)
[2021-05-28 05:49] LABS: B Type Natriuretic Peptide 1015 pg/mL (<100)
[2021-05-28 06:02] LABS: Procalcitonin 0.02 ng/mL
--- NOTE | 2021-05-28 06:16 | PC.NURSE ---
[facility] removed 0615. due to void at 0015 and 1815
[2021-05-28] MEDS: Albuterol/Iprat 2.5/0.5MG 3 ML AMPUL.NEB INHALE ×3 (07:55→18:55)
--- NOTE | 2021-05-28 10:32 | P.PNCA_ITS ---
Subjective Subjective Date of Service: 05/28/21 Interval history: Still short of breath and lot of coughing. Review of Systems Review of Systems Yes all other systems are reviewed and are negative Cardiovascular: Reports as per HPI, Reports no additional cardiovascular complaints, Denies acrocyanosis, Denies cool extremities, Denies painful fingertips, Denies chest pain, Denies chest pain at rest, Denies diaphoresis, Denies syncope, Denies irregular heart rhythm, Denies claudication, Denies leg edema, Denies lightheadedness, Denies palpitations and Reports dyspnea Respiratory: Reports dyspnea Denies syncope Endocrine: Denies palpitations Physical Exam Vital Signs: Last Vital Signs Temp 97.3 F 05/28/21 07:43 Pulse 72 05/28/21 07:58 Resp 20 05/28/21 07:43 BP 179/87 H 05/28/21 07:43 Pulse Ox 90 L 05/28/21 07:43 Oxygen Flow Rate 5 05/25/21 12:48 Body Mass Index 36.2 Const General: cooperative and no acute distress [facility] Other: Unremarkable Neck Neck: Yes normal visual inspection Chest Chest palpation & inspection: normal inspection of the chest Resp Auscultation: clear to auscultation bilaterally, no crackles and no wheezes Cardio Jugular venous distension: no JVD Palpation: normal PMI Heart sounds: S1 normal heart sound present, S2 normal heart sound present, no gallops, Murmur heart sound present (3/6 CHARISSA aortic area) and no rubs GI Palpation (GI): Soft to palpation Back/Spine/Pelvis Other: unremarkable Skin General skin exam: no rashes or lesions noted Neuro Cranial nerves: Yes Other cranial nerve findings present Extrem General: Yes no clubbing, cyanosis or edema Psych Mental Status: other Results Labs and Meds Result diagrams: 05/27/21 05:22 05/28/21 04:42 Lab results: Laboratory Results - last 24 hr 05/26/21 05/27/21 05/28/21 05:16 10:30 04:42 Sodium 144 Potassium 3.6 Chloride 104 Carbon Dioxide 31 H Anion Gap 13 BUN 31 H Creatinine 0.79 Estim Creat Clear Calc 69.0 Estimated GFR > 60 Random Glucose 134 H Calcium 8.8 Magnesium 2.8 H B-Natriuretic Peptide Procalcitonin < 0.05 Respiratory Panel Friedman See Note Adenovirus (Rapid PCR) Not Detected B.pert (TEM-PCR) Not Detected B.parapertussis DNA PCR Not Detected C. pneumoniae DNA (PCR) Not Detected Coronavirus OC43 (PCR) Not Detected Coronavirus HKU1 (PCR) Not Detected Coronavirus 229E (PCR) Not Detected Coronavirus NL63 (PCR) Not Detected Human Metapneumovir PCR Not Detected Influenza A (RT-PCR) Not Detected Influenza B (RT-PCR) Not Detected M. pneumoniae (PCR) Not Detected Parainfluenza 1 (PCR) Not Detected Parainfluenza 2 (PCR) Not Detected Parainfluenza 3 (PCR) Not Detected Parainfluenza 4 (PCR) Not Detected RSV (PCR) Not Detected Entero/Rhino (PCR) Not Detected SARS-CoV-2 RNA (RT-PCR) Not Detected 05/28/21 05/28/21 04:42 04:42 Sodium Potassium Chloride Carbon Dioxide Anion Gap BUN Creatinine Estim Creat Clear Calc Estimated GFR Random Glucose Calcium Magnesium B-Natriuretic Peptide 1015 H Procalcitonin 0.02 Respiratory Panel Friedman Adenovirus (Rapid PCR) B.pert (TEM-PCR) B.parapertussis DNA PCR C. pneumoniae DNA (PCR) Coronavirus OC43 (PCR) Coronavirus HKU1 (PCR) Coronavirus 229E (PCR) Coronavirus NL63 (PCR) Human Metapneumovir PCR Influenza A (RT-PCR) Influenza B (RT-PCR) M. pneumoniae (PCR) Parainfluenza 1 (PCR) Parainfluenza 2 (PCR) Parainfluenza 3 (PCR) Parainfluenza 4 (PCR) RSV (PCR) Entero/Rhino (PCR) SARS-CoV-2 RNA (RT-PCR) Progress Note: A&P Assessment and plan (1) Acute on chronic diastolic (congestive) heart failure: Status: Acute (2) Nonrheumatic aortic (valve) stenosis: Status: Acute (3) Acute on chronic respiratory failure with hypoxia and hypercapnia: Status: Acute Assessment and Plan: Pertinent data reviewed. In the recent echocardiogram, LVEF was 60-65%. With regard to the aortic valve, the mean gradient was 25 mm with a peak of 43 mm Hg. Calculated valve area was 1.18 sq cm. Dimensionless index was 0.38. Based on these parameters, this is still moderate aortic stenosis. EKG this admission showed sinus rhythm, 90/Min; left anterior fascicular block and right bundle- branch block, PACs. On telemetry, there seem to be frequent PACs. Labs reviewed. High sensitive troponins are 19.9 and 22.3. Cardiac BNP is 1015. On admission was 562. In October it was 228. CT chest findings reviewed as well. Overall, her symptoms are primarily respiratory in nature. The aortic stenosis is an additional problem but based on the hemodynamic parameters, does not appear to be the primary issue. She could have some degree of left-sided diastolic +/-right heart failure. Agree with empiric diuretics as you currently are administering for any heart failure component. Otherwise with regard to any intervention of the valve, not indicated at this time. Will follow with you. Fall Risk Details Current Medications: Current Medications Generic Name Dose Route Start Last Admin Trade Name Freq PRN Reason Stop Dose Admin Acetazolamide 500 mg 05/26/21 06:01 05/28/21 05:48 Acetazolamide Sodium 500 Mg Vial IVPUSH 500 mg Q8H GERMAN Administration Albuterol/Ipratropium 3 ml 05/25/21 22:30 05/28/21 07:55 Albuterol/Iprat 2.5/0.5mg 3 Ml Ampul.Neb INHALE 3 ml RQ6H WHILE AWAKE GERMAN Administration Albuterol/Ipratropium 3 ml 05/25/21 22:13 Albuterol/Iprat 2.5/0.5mg 3 Ml Ampul.Neb INHALE RQ6H PRN sob / wheezing Aspirin 81 mg 05/26/21 09:00 05/27/21 08:39 Aspirin 81 Mg Tab.Chew PO 81 mg DAILY GERMAN Administration Atorvastatin Calcium 40 mg 05/26/21 09:00 05/27/21 08:39 Atorvastatin Calcium 40 Mg Tablet PO 40 mg DAILY GERMAN Administration Buspirone HCl 7.5 mg 05/25/21 21:36 05/27/21 22:09 Buspirone Hcl 5 Mg Tablet PO 7.5 mg BID GERMAN Administration Clonazepam 0.25 mg 05/25/21 21:36 05/26/21 19:29 Clonazepam 0.5 Mg Tablet PO 0.25 mg BEDTIME PRN Administration Sleep Dicyclomine HCl 10 mg 05/26/21 08:00 05/27/21 15:35 Dicyclomine Hcl 10 Mg Capsule PO 10 mg TIDWM GERMAN Administration Diltiazem HCl 120 mg 05/25/21 21:36 05/27/21 22:08 Diltiazem Hcl Cd 120 Mg Cap.Er.Deg PO 120 mg BID GERMAN Administration Protocol Docusate Sodium 100 mg 05/27/21 13:45 05/27/21 22:08 Docusate Sodium 100 Mg Capsule PO 100 mg BID GERMAN Administration Enoxaparin Sodium 40 mg 05/25/21 23:00 05/27/21 22:09 Enoxaparin Sodium 40 Mg/0.4 Ml Syringe SUBCUT 40 mg Q24H GERMAN Administration Furosemide 40 mg 05/26/21 09:00 05/27/21 17:54 Furosemide 40 Mg/4 Ml Vial IVPUSH 40 mg BID@0900,1800 GERMAN Administration Protocol Levothyroxine Sodium 175 mcg 05/26/21 06:30 05/28/21 05:48 Levothyroxine Sodium 175 Mcg Tablet PO 175 mcg DAILY@0630 GERMAN Administration Methylprednisolone Sodium Succinate 40 mg 05/27/21 22:00 05/27/21 22:08 Methylprednisolone Sod Succ 40 Mg/Ml Vial IVPUSH 40 mg Q12H GERMAN Administration Nicotine 21 mg 05/26/21 09:00 05/27/21 08:40 Nicotine 21 Mg Patch.Td24 TRANSDERMA 21 mg DAILY GERMAN Administration Omeprazole 20 mg 05/26/21 06:30 05/28/21 05:48 Omeprazole 20 Mg Capsule. PO 20 mg DAILY@0630 GERMAN Administration Oxycodone HCl 5 mg 05/27/21 13:20 05/27/21 15:37 Oxycodone Hcl Immed Release 5 Mg Tablet PO 5 mg Q4H PRN Administration severe pain Pharmacy Consult 1 each 05/25/21 13:00 Consult Rx Perform Med Rec MISCELLANE ONCE PRN Consult order Vilazodone HCl 40 mg 05/26/21 09:00 05/27/21 08:38 Vilazodone Hcl 40 Mg Tablet PO 40 mg DAILY GERMAN Administration Time Spent With Patient Time: Total time spent is greater than 50% in coordination of care (as documented) at patient's floor/unit and/or counseling patient: Time with patient: less than 15 minutes Progress Note: Quality Stroke Does the patient have a stroke diagnosis?: No Procedures Date of Service Date of Service: 05/28/21
[2021-05-28] MEDS: Furosemide 40 MG/4 ML VIAL IVPUSH ×2 (10:38→18:07)
[2021-05-28] MEDS: Docusate Sodium 100 MG CAPSULE PO ×2 (10:38→21:39)
[2021-05-28] MEDS: methylPREDNISolone Sod Succ 40 MG/ML VIAL IVPUSH (10:38)
[2021-05-28] MEDS: Atorvastatin Calcium 40 MG TABLET PO (10:38)
[2021-05-28] MEDS: busPIRone HCl 5 MG TABLET 7.5 MG PO ×2 (10:39→21:39)
[2021-05-28] MEDS: dilTIAZem HCL CD 120 MG CAP.ER.DEG PO (10:39)
[2021-05-28] MEDS: Dicyclomine HCl 10 MG CAPSULE PO ×2 (10:39→18:07)
[2021-05-28] MEDS: Vilazodone HCL 40 MG TABLET PO (10:39)
[2021-05-28] MEDS: Aspirin 81 MG TAB.CHEW PO (10:40)
[2021-05-28] MEDS: Nicotine 21 MG PATCH.TD24 TRANSDERMA (10:41)
[2021-05-28] MEDS: oxyCODONE HCl Immed Release 5 MG TABLET PO (10:46)
--- NOTE | 2021-05-28 14:21 | P.PNIM_ITS ---
Subjective Subjective Date of Service: 05/28/21 Interval History: Still c/o dyspnea, wheeze Constipated; hasn't had a full BM in several weeks Review of Systems Review of Systems: Yes all other systems are reviewed and are negative Physical Exam Vital Signs: Vital Signs: Last Vital Signs Temp 97.3 F 05/28/21 11:36 Pulse 80 05/28/21 14:01 Resp 20 05/28/21 11:36 BP 176/78 H 05/28/21 11:36 Pulse Ox 94 05/28/21 11:36 Oxygen Flow Rate 5 05/25/21 12:48 Body Mass Index 36.2 Gen: mild respiratory distress HEENT: sclera anicteric, moist mucus membranes Neck: supple Lungs: diminished bilaterally Heart: regular rate and rhythm, 2/6 systolic murmur at base Abd: obese; ventral hernia upper abd; seroma lower abd Ext: 1+ LE edema bilaterally Skin: warm/well-perfused Neuro: alert and oriented x3, no focal findings Psych: appropriate affect Objective Data Current Medications Generic Name Dose Route Start Last Admin Trade Name Ricardoq PRN Reason Stop Dose Admin Acetazolamide 500 mg 05/26/21 06:01 05/28/21 05:48 Acetazolamide Sodium 500 Mg Vial IVPUSH 500 mg Q8H GERMAN Administration Albuterol/Ipratropium 3 ml 05/25/21 22:30 05/28/21 13:58 Albuterol/Iprat 2.5/0.5mg 3 Ml Ampul.Neb INHALE 3 ml RQ6H WHILE AWAKE GERMAN Administration Albuterol/Ipratropium 3 ml 05/25/21 22:13 Albuterol/Iprat 2.5/0.5mg 3 Ml Ampul.Neb INHALE RQ6H PRN sob / wheezing Aspirin 81 mg 05/26/21 09:00 05/28/21 10:40 Aspirin 81 Mg Tab.Chew PO 81 mg DAILY GERMAN Administration Atorvastatin Calcium 40 mg 05/26/21 09:00 05/28/21 10:38 Atorvastatin Calcium 40 Mg Tablet PO 40 mg DAILY GERMAN Administration Buspirone HCl 7.5 mg 05/25/21 21:36 05/28/21 10:39 Buspirone Hcl 5 Mg Tablet PO 7.5 mg BID GERMAN Administration Clonazepam 0.25 mg 05/25/21 21:36 05/26/21 19:29 Clonazepam 0.5 Mg Tablet PO 0.25 mg BEDTIME PRN Administration Sleep Dicyclomine HCl 10 mg 05/26/21 08:00 05/28/21 10:39 Dicyclomine Hcl 10 Mg Capsule PO 10 mg TIDWM GERMAN Administration Diltiazem HCl 180 mg 05/28/21 21:00 Diltiazem Hcl Cd 180 Mg Cap.Er.24h PO BID GERMAN Protocol Docusate Sodium 100 mg 05/27/21 13:45 05/28/21 10:38 Docusate Sodium 100 Mg Capsule PO 100 mg BID GERMAN Administration Enoxaparin Sodium 40 mg 05/25/21 23:00 05/27/21 22:09 Enoxaparin Sodium 40 Mg/0.4 Ml Syringe SUBCUT 40 mg Q24H GERMAN Administration Furosemide 40 mg 05/26/21 09:00 05/28/21 10:38 Furosemide 40 Mg/4 Ml Vial IVPUSH 40 mg BID@0900,1800 GERMAN Administration Protocol Lactulose 30 gm 05/28/21 15:00 Lactulose 20 Gm/30 Ml Solution PO TID GERMAN Levothyroxine Sodium 175 mcg 05/26/21 06:30 05/28/21 05:48 Levothyroxine Sodium 175 Mcg Tablet PO 175 mcg DAILY@0630 GERMAN Administration Methylprednisolone Sodium Succinate 40 mg 05/27/21 22:00 05/28/21 10:38 Methylprednisolone Sod Succ 40 Mg/Ml Vial IVPUSH 40 mg Q12H GERMAN Administration Nicotine 21 mg 05/26/21 09:00 05/28/21 10:41 Nicotine 21 Mg Patch.Td24 TRANSDERMA 21 mg DAILY GERMAN Administration Omeprazole 20 mg 05/26/21 06:30 05/28/21 05:48 Omeprazole 20 Mg Capsule. PO 20 mg DAILY@0630 GERMAN Administration Oxycodone HCl 5 mg 05/27/21 13:20 05/28/21 10:46 Oxycodone Hcl Immed Release 5 Mg Tablet PO 5 mg Q4H PRN Administration severe pain Pharmacy Consult 1 each 05/25/21 13:00 Consult Rx Perform Med Rec MISCELLANE ONCE PRN Consult order Vilazodone HCl 40 mg 05/26/21 09:00 05/28/21 10:39 Vilazodone Hcl 40 Mg Tablet PO 40 mg DAILY GERMAN Administration Labs CBC & Chem 7: 05/27/21 05:22 05/28/21 04:42 Labs: Laboratory Results - last 24 hr 05/28/21 05/28/21 05/28/21 04:42 04:42 04:42 Anion Gap 13 Estim Creat Clear Calc 69.0 Estimated GFR > 60 Random Glucose 134 H Calcium 8.8 Magnesium 2.8 H B-Natriuretic Peptide 1015 H Procalcitonin 0.02 Microbiology Microbiology Results: Microbiology 05/25/21 13:21 Blood Culture - Preliminary Blood - Venous No growth after 48 hours. 05/25/21 13:08 Blood Culture - Preliminary Blood - Venous No growth after 48 hours. Assessment and Plan (1) Acute on chronic diastolic (congestive) heart failure: Status: Acute (2) Acute on chronic respiratory failure with hypoxia and hypercapnia: Status: Acute Assessment and Plan: hospital d#4 71yo F with end-stage COPD with chronic hypoxic/hypercapneic respiratory fa ilure, HFpEF, aortic stenosis presented with lethargy + dyspnea, admitted to ICU for acute hypercapneic respiratory failure requiring BiPAP stepped down to C 05/26/21 # COPD exacerbation - continue IV steroids- taper, standing/prn bronchodilators. continue tiotropium # acute/chronic HFpEF - continue IV diuresis; monitor I+O, BNP, BMP, Mg. Negative 5.3L thus far this admission. Cardiology following. # metabolic alkalosis - continue acetazolamide # DHEERAJ - should use CPAP at night; will obtain Pulm consult + overnight oximetry test; pt has not tolerated face mask in the past # - Cardiology consulted, no invasive intervention required at this time; continue to diurese # tobacco abuse - NRT # ventral hernia # abd wall seroma - Surg consulted, no intervention required, give stool regimen for constipation- will add lactulose # ascending thoracic aortic aneurysm - Vascular consult: outpt surveillance # atrial tachycardia - continue diltiazem # CAD - continue atorvastatin +ASA # hypothyroidism - continue LT4 # IBS - continue dicyclomine # mood disorder - continue vilazodone, buspirone # VTE ppx - LMWH # dispo - eventual home with VNA Quality Stroke Does the patient have a stroke diagnosis?: No VTE Prior VTE?: No VTE Risk Level:: Medical - moderate - high VTE Device Contraindication: N/A - Device Ordered VTE Drug Contraindication: N/A - Med Ordered
[2021-05-28] MEDS: Lactulose 20 GM/30 ML SOLUTION 30 GM PO ×2 (14:25→21:39)
--- NOTE | 2021-05-28 15:27 | P.CONPL_ITS ---
History of Present Illness History of Present Illness Consult date: 05/28/21 Chief complaint: Hypoxic hypercarpnic resp failure Narrative: This 71 years old female is seen for pulmonary consultation and advice. She is well known to the Pulmonary Service. Admitted on 05/25 with the increased shortness of breath and general weakness, no fever or chills. She had increased cough, and chest congestion. In the emergency room found to have acute on chronic respiratory failure with pCO2 up to 88, pH 7.29. Patient admitted to intensive care unit, treated for acute exacerbation of COPD with IV Solu-Medrol, DuoNeb updrafts oxygen supplementation, and diuresis . She had BiPAP initially in the emergency room which was later on removed. She has improved as far as her acute respiratory failure is concerned, moved to intermediate medical care. Continues to be weak and short of breath. Past medical history is well documented and includes, chronic obstructive pulmonary disease for many years with ongoing chronic hypercapnic/hypoxemic respiratory failure. It should be noted that she had been advised to use BiPAP or CPAP many years ago and she has never been compliant to the use. She as soon as she goes home she claims that she gets suffocated with the mask and thus she cannot use it. She has been on oxygen at night and during the day 3-4 L/minute. The serious problem is that in spite of having advanced rather end-stage chronic obstructive pulmonary disease and chronic respiratory failure she continues to smoke on a daily basis is almost 1 pack a day. She has never been serious about quitting smoking, due to her sister born behavior issue. Other multiple comorbidities include to aortic stenosis, chronic diastolic congestive heart failure, moderate obesity and possibility of obstructive sleep apnea. She also has a large ventral hernia of the abdominal wall,, and the present CT scan shows thoracic aortic aneurysm. Review of Systems Review of Systems: Yes all other systems are reviewed and are negative ON LICENSE OF [facility] Past Medical History Medical History (Updated 05/27/21 @ 14:40 by Danny Espitia MD) Atherosclerotic cardiovascular disease Atrial arrhythmia Bifascicular block Chronic diastolic (congestive) heart failure COPD (chronic obstructive pulmonary disease) COPD (chronic obstructive pulmonary disease) Enuresis Nonrheumatic aortic (valve) stenosis On home oxygen therapy DHEERAJ (obstructive sleep apnea) Respiratory failure with hypoxia and hypercapnia Thoracic aortic aneurysm (TAA) Urge incontinence Family History Family History Father No problems noted. Mother No problems noted. Surgical History Surgical History History of umbilical hernia repair Social History Social History Household Members: None Housing: Other Housing Other:: lives alone - unsure if house or apt Unable to assess alcohol history related to: Unable to respond and Refusing to respond Alcohol intake: never Patient Tobacco Use Status: Current everyday Tobacco user Use of substances other than those prescribed or required for medical reasons: Unable to respond Currently Displaying Signs/Symptoms of Drug Intoxication Withdrawal: No Spiritual Healthcare Practices: unknown [employer]al Healthcare Practices: unknown Cultural Healthcare Practices: unknown Advance Directives: Yes (unsure of date) Advance Directives Information Provided: No Advance Directives on File: No Advance Directives Date on File: 05/25/21 Do you have thoughts of harming others: None Do you have a plan to hurt others: No Plan Recently lost weight without trying: Unsure Patient : No : No Poor oral hygiene: No service: No Current occupational status: disabled Meds Allergies Allergy/AdvReac Type Severity Reaction Status Date / Time morphine [Morphine] Allergy Unknown UNKNOWN Verified 05/25/21 12:58 Active Medications: Current Medications Generic Name Dose Route Start Last Admin Trade Name Freq PRN Reason Stop Dose Admin Acetazolamide 500 mg 05/26/21 06:01 05/28/21 14:25 Acetazolamide Sodium 500 Mg Vial IVPUSH 500 mg Q8H GERMAN Administration Albuterol/Ipratropium 3 ml 05/25/21 22:30 05/28/21 13:58 Albuterol/Iprat 2.5/0.5mg 3 Ml Ampul.Neb INHALE 3 ml RQ6H WHILE AWAKE GERMAN Administration Albuterol/Ipratropium 3 ml 05/25/21 22:13 Albuterol/Iprat 2.5/0.5mg 3 Ml Ampul.Neb INHALE RQ6H PRN sob / wheezing Aspirin 81 mg 05/26/21 09:00 05/28/21 10:40 Aspirin 81 Mg Tab.Chew PO 81 mg DAILY GERMAN Administration Atorvastatin Calcium 40 mg 05/26/21 09:00 05/28/21 10:38 Atorvastatin Calcium 40 Mg Tablet PO 40 mg DAILY GERMAN Administration Buspirone HCl 7.5 mg 05/25/21 21:36 05/28/21 10:39 Buspirone Hcl 5 Mg Tablet PO 7.5 mg BID GERMAN Administration Clonazepam 0.25 mg 05/25/21 21:36 05/26/21 19:29 Clonazepam 0.5 Mg Tablet PO 0.25 mg BEDTIME PRN Administration Sleep Dicyclomine HCl 10 mg 05/26/21 08:00 05/28/21 14:47 Dicyclomine Hcl 10 Mg Capsule PO Not Given TIDWM GERMAN Diltiazem HCl 180 mg 05/28/21 21:00 Diltiazem Hcl Cd 180 Mg Cap.Er.24h PO BID [facility] Protocol Docusate Sodium 100 mg 05/27/21 13:45 05/28/21 10:38 Docusate Sodium 100 Mg Capsule PO 100 mg BID GERMAN Administration Enoxaparin Sodium 40 mg 05/25/21 23:00 05/27/21 22:09 Enoxaparin Sodium 40 Mg/0.4 Ml Syringe SUBCUT 40 mg Q24H [facility]MAN Administration Furosemide 40 mg 05/26/21 09:00 05/28/21 10:38 Furosemide 40 Mg/4 Ml Vial IVPUSH 40 mg BID@0900,1800 [facility] Administration Protocol Lactulose 30 gm 05/28/21 15:00 05/28/21 14:25 Lactulose 20 Gm/30 Ml Solution PO 30 gm TID [facility]ERMAN Administration Levothyroxine Sodium 175 mcg 05/26/21 06:30 05/28/21 05:48 Levothyroxine Sodium 175 Mcg Tablet PO 175 mcg DAILY@0630 [facility] Administration Methylprednisolone Sodium Succinate 40 mg 05/29/21 10:00 Methylprednisolone Sod Succ 40 Mg/Ml Vial IVPUSH Q24H [facility]ERMAN Nicotine 21 mg 05/26/21 09:00 05/28/21 10:41 Nicotine 21 Mg Patch.Td24 TRANSDERMA 21 mg DAILY [facility]MAN Administration Omeprazole 20 mg 05/26/21 06:30 05/28/21 05:48 Omeprazole 20 Mg Capsule.Dr PO 20 mg DAILY@0630 [facility] Administration Oxycodone HCl 5 mg 05/27/21 13:20 05/28/21 10:46 Oxycodone Hcl Immed Release 5 Mg Tablet PO 5 mg Q4H PRN Administration severe pain Pharmacy Consult 1 each 05/25/21 13:00 Consult Rx Perform Med Rec MISCELLANE ONCE PRN Consult order Tiotropium [place] 1 puff 05/29/21 08:00 Tiotropium [place] 18 Mcg Cap.W.Dev INHALE RDAILY [facility] Vilazodone HCl 40 mg 05/26/21 09:00 05/28/21 10:39 Vilazodone Hcl 40 Mg Tablet PO 40 mg DAILY [facility] Administration Home Medications Medication Instructions Recorded Confirmed Last Taken Type atorvastatin 40 mg tablet 40 mg PO DAILY tab 08/19/20 05/25/21 Unknown History diltiazem HCl 120 mg 120 mg PO BID cap 08/19/20 05/25/21 Unknown History capsule,extended release 12 hr guaifenesin 600 mg tablet, 600 mg PO BID 08/30/20 05/25/21 Unknown History extended release 12 hr (Mucinex) ipratropium 0.5 mg-albuterol 3 mg 3 ml INHALATION Q6H PRN 08/30/20 05/25/21 Unknown History (2.5 mg base)/3 mL nebulization soln tiotropium bromide 18 mcg capsule 1 cap INHALATION DAILY 08/30/20 05/25/21 Unknown History with inhalation device (Spiriva with HandiHaler) clonazepam 0.5 mg tablet 0.25 mg PO BEDTIME PRN tab 10/04/20 05/25/21 Unknown History dicyclomine 10 mg capsule 10 mg PO TIDWM cap 10/04/20 05/25/21 Unknown History levothyroxine 175 mcg tablet 175 mcg PO DAILY@0630 tab 10/04/20 05/25/21 Unknown History omeprazole 20 mg capsule,delayed 20 mg PO DAILY cap 10/04/20 05/25/21 Unknown History release vilazodone 40 mg tablet 40 mg PO DAILY tab 10/04/20 05/25/21 Unknown History lactulose 10 gram/15 mL oral 15 ml PO BID PRN 10/25/20 05/25/21 Unknown History solution furosemide 20 mg tablet 60 mg PO DAILY tab 11/30/20 05/25/21 Unknown History cyanocobalamin (vitamin B-12) 1,000 mcg IM Q30D 03/31/21 05/25/21 Unknown History 1,000 mcg/mL injection solution gabapentin 300 mg capsule 300 mg PO BEDTIME 03/31/21 05/25/21 Unknown History melatonin 5 mg tablet 5 mg PO BEDTIME PRN 03/31/21 05/25/21 Unknown History acetaminophen 325 mg tablet 650 mg PO Q4H PRN 05/25/21 05/25/21 Unknown History aspirin 81 mg chewable tablet 81 mg PO DAILY 05/25/21 05/25/21 Unknown History buspirone 7.5 mg tablet 1 tab PO BID 05/25/21 05/25/21 Unknown History fluticasone furoate 200 1 inh INHALATION BEDTIME 05/25/21 05/25/21 Unknown History mcg-vilanterol 25 mcg/dose inhalation powder (Breo Ellipta) oxybutynin chloride 15 mg 15 mg PO BID 05/25/21 05/25/21 Unknown History tablet,extended release 24 hr simethicone 80 mg chewable tablet 80 mg PO BEDTIME 05/25/21 05/25/21 Unknown Hi story Physical Exam Vital Signs: Vital Signs: Last Vital Signs Temp 97.3 F 05/28/21 11:36 Pulse 80 05/28/21 14:01 Resp 20 05/28/21 11:36 BP 176/78 H 05/28/21 11:36 Pulse Ox 94 05/28/21 11:36 Oxygen Flow Rate 5 05/25/21 12:48 Body Mass Index 36.2 Const: General: comfortable, no acute distress, alert and awake Orientation /consciousness: patient oriented x3 HENMT: Head: Yes normal to inspection General nose exam: No nasal polyps present and No nasal discharge present Face and sinus: Yes sinuses nontender Mouth: oropharynx normal Throat: Yes posterior oropharynx normal Eyes: General: appearance normal, both eyes and all related structures Neck: Other: Short and obese Neck: Yes normal visual inspection, Yes no lymphadenopathy, Yes trachea midline and Yes no JVD Thyroid: Thyroid normal Chest: Chest palpation & inspection: normal inspection of the chest, normal palpation of entire chest wall and no tenderness Resp: Other: Breath sounds are distant, She has scattered crepitations over the basilar areas, no definite wheezes heard Cardio: Palpation: PMI not normal (Not palpable) Rate: regular rate Rhythm: regular rhythm Heart sounds: no gallops and Murmur heart sound present (Grade 3/6 systolic murmur at the aortic area) GI: Other: Large ventral hernia is present Palpation (GI): Soft to palpation, nontender, No hepatosplenomegaly present and no masses Auscultation: normal bowel sounds Back/Spine/Pelvis: Thoracic/Lumbar Spine: thoracic and lumbar spine normal to inspection Skin: General skin exam: no rashes or lesions noted Neuro: General: patient oriented x3, No gait normal (Gait impaired due to her general weakness and patient uses walker or chair) and no focal motor deficits Cranial nerves: Yes CN's II-XII intact bilaterally Extrem: General: Yes normal to inspection, Yes no calf tenderness and Yes ed lópez (2+ bilateral edema of the legs is noted) Psych: Speech and movement: Normal speech and movement present Results Laboratory Findings CBC and BMP: 05/27/21 05:22 05/28/21 04:42 ABG, PT/INR, D-dimer: PT/INR, D-dimer D-Dimer < 200 NG/ML 05/25/21 18:08 Abnormal lab findings: Abnormal Labs 05/25/21 05/25/21 05/25/21 13:08 13:08 13:08 WBC MCV 98.5 H MCHC 30.9 L Immature Gran % (Auto) Neut % (Auto) Lymph % (Auto) 17.4 L [place] % (Auto) Lymph # (Auto) ABG pH at Pt Temp ABG pH (Temp Correct) ABG pCO2 at Pt Temp ABG pCO2 (Temp Corrct ABG pO2 at Pt Temp ABG pO2 (Temp Correct ABG HCO3 VBG HCO3 Carbon Dioxide 39 H Anion Gap 10 L BUN Random Glucose Magnesium Troponin I High Sens 19.9 H* B-Natriuretic Peptide 562 H Urine Fentanyl Screen 05/25/21 05/25/21 05/25/21 13:12 14:41 18:06 WBC MCV MCHC Immature Gran % (Auto) Neut % (Auto) Lymph % (Auto) [place] % (Auto) Lymph # (Auto) ABG pH at Pt Temp 7.29 L ABG pH (Temp Correct) 7.29 L ABG pCO2 at Pt Temp 88 H* ABG pCO2 (Temp Corrct 87 H* ABG pO2 at Pt Temp 66 L ABG pO2 (Temp Correct 65 L ABG HCO3 43 H VBG HCO3 Carbon Dioxide Anion Gap BUN Random Glucose Magnesium Troponin I High Sens 22.3 H* B-Natriuretic Peptide Urine Fentanyl Screen POSITIVE H 05/25/21 05/26/21 05/26/21 21:45 05:15 05:16 WBC 4.4 L MCV MCHC Immature Gran % (Auto) 0.7 H Neut % (Auto) 89.8 H Lymph % (Auto) 7.9 L [place] % (Auto) 1.4 L Lymph # (Auto) 0.4 L ABG pH at Pt Temp 7.34 L ABG pH (Temp Correct) 7.34 L ABG pCO2 at Pt Temp 74 H* ABG pCO2 (Temp Corrct 74 H* ABG pO2 at Pt Temp 77 L ABG pO2 (Temp Correct 78 L ABG HCO3 40 H VBG HCO3 41 H Carbon Dioxide Anion Gap BUN Random Glucose Magnesium Troponin I High Sens B-Natriuretic Peptide Urine Fentanyl Screen 05/26/21 05/27/21 05/27/21 05:16 05:20 05:22 WBC 13.2 H MCV MCHC Immature Gran % (Auto) Neut % (Auto) Lymph % (Auto) [place] % (Auto) Lymph # (Auto) ABG pH at Pt Temp ABG pH (Temp Correct) ABG pCO2 at Pt Temp ABG pCO2 (Temp Corrct ABG pO2 at Pt Temp ABG pO2 (Temp Correct ABG HCO3 VBG HCO3 35 H Carbon Dioxide 39 H Anion Gap 11 L BUN Random Glucose 142 H Magnesium Troponin I High Sens B-Natriuretic Peptide Urine Fentanyl Screen 05/27/21 05/27/21 05/28/21 05:22 05:22 04:42 WBC MCV MCHC Immature Gran % (Auto) Neut % (Auto) Lymph % (Auto) [place] % (Auto) Lymph # (Auto) ABG pH at Pt Temp ABG pH (Temp Correct) ABG pCO2 at Pt Temp ABG pCO2 (Temp Corrct ABG pO2 at Pt Temp ABG pO2 (Temp Correct ABG HCO3 VBG HCO3 Carbon Dioxide 32 H 31 H Anion Gap 11 L BUN 26 H D 31 H Random Glucose 124 H 134 H Magnesium 2.8 H Troponin I High Sens B-Natriuretic Peptide 838 H Urine Fentanyl Screen 05/28/21 04:42 WBC MCV MCHC Immature Gran % (Auto) Neut % (Auto) Lymph % (Auto) [place] % (Auto) Lymph # (Auto) ABG pH at Pt Temp ABG pH (Temp Correct) ABG pCO2 at Pt Temp ABG pCO2 (Temp Corrct ABG pO2 at Pt Temp ABG pO2 (Temp Correct ABG HCO3 VBG HCO3 Carbon Dioxide Anion Gap BUN Random Glucose Magnesium Troponin I High Sens B-Natriuretic Peptide 1015 H Urine Fentanyl Screen Microbiology: Microbiology 05/25/21 13:21 Blood - Venous Blood Culture - Preliminary No growth after 48 hours. 05/25/21 13:08 Blood - Venous Blood Culture - Preliminary No growth after [address] scan - chest: image reviewed Assessment and Plan (1) Acute on chronic diastolic (congestive) heart failure: Status: Acute Increase diastolic congestive heart failure, aggravated by advanced chronic obstructive pulmonary disease/hypoxemia resulting in COR_PULMONALE. Currently improving with mild diuretic therapy. (2) COPD (chronic obstructive pulmonary disease): Status: Acute Patient has end-stage chronic obstructive pulmonary disorder, It continues to get worse because of her continued smoking, and recurrent respiratory infections. [place] : Should continue Breo-201 inhalation daily, DuoNeb updrafts Q 6 hours while awake and p.r.n.. Should stop smoking completely but this is a difficult goal to achieve, in her case (3) DHEERAJ (obstructive sleep apnea): Status: Acute She has history of the obstructive sleep apnea for long time but she has never been able to use CPAP. (4) Respiratory failure with hypoxia and hypercapnia: Status: Acute She suffers from chronic respiratory failure. As far as hypoxemia is concerned this can be treated with oxygen supplementation as she uses 3-4 L/minute. The main problem is CO2 retention, for that she should use CPAP or BiPAP at night but she has been not been able to do that. Even now she is stating very clearly that she will not be able to use it. So I do not think we will enforce her much. Okay to keep her on Diamox 250 mg p.o. once a day. At this point we can DC IV Diamox. She should do deep breathing exercises with pursed lip technique. At this point she she seemed to be quite debilitated and I do not think it will be appropriate for her to go home. She would benefit from short-term rehab placement. Procedures Date of Service Date of Service: 05/28/21
[2021-05-28] MEDS: acetaZOLAMIDE 250 MG TABLET PO (21:39)
[2021-05-28] MEDS: dilTIAZem HCL CD 180 MG CAP.ER.24H PO (21:39)
[2021-05-28] MEDS: Enoxaparin Sodium 40 MG/0.4 ML SYRINGE SUBCUT (21:40)
[2021-05-29] VITALS (15 sets, daily range): BP systolic 138–161; BP diastolic 66–82; PULSE 54–101; RESP 18–22; TEMP 36.2–37.3; O2SAT 83–95; BMI 35.9
[2021-05-29 01:01] LABS: Anion Gap 10 (12-20); Blood Urea Nitrogen 31 mg/dL (9-16); Calcium 8.7 mg/dL (8.4-10.2); Carbon Dioxide 34 mmol/L (22-29); Chloride 105 mmol/L (96-108); Creatinine Clr Calc Pharmacy 62.6; Estimated Glomerular Filt Rate > 60; Glucose Random 126 mg/dL (60-115); Magnesium 2.7 mg/dL (1.6-2.6); Sodium 146 mmol/L (135-145)
[2021-05-29] MEDS: Potassium Chloride Packet 20 MEQ PACKET 40 MEQ PO ×2 (03:16→08:10)
[2021-05-29] MEDS: Omeprazole 20 MG CAPSULE.DR PO (05:47)
[2021-05-29] MEDS: Levothyroxine Sodium 175 MCG TABLET PO (05:47)
[2021-05-29 05:52] LABS: Hemoglobin 14.9 g/dl (12.0-16.0); Mean Corpuscular Hemoglobin 30.3 pg (27.0-33.0); Mean Corpuscular Volume 97.8 fL (80-98); Mean Platelet Volume 9.9 fL (9.4-12.3); Platelet Count 213 X10*3/uL (160-400); Red Blood Count 4.91 X10*6/uL (4.20-5.50); Red Cell Distribution Width 13.4 % (11.0-16.0); White Blood Count 13.2 X10*3/uL (4.8-10.8)
[2021-05-29 06:12] LABS: Anion Gap 11 (12-20); Blood Urea Nitrogen 29 mg/dL (9-16); Calcium 8.6 mg/dL (8.4-10.2); Carbon Dioxide 32 mmol/L (22-29); Chloride 106 mmol/L (96-108); Creatinine Clr Calc Pharmacy 69.9; Estimated Glomerular Filt Rate > 60; Glucose Random 93 mg/dL (60-115); Magnesium 2.7 mg/dL (1.6-2.6); Potassium 3.6 mmol/L (3.3-5.1); Sodium 145 mmol/L (135-145)
[2021-05-29 06:12] LABS: Venous Blood Gas Refer to POC result
[2021-05-29 06:13] LABS: B Type Natriuretic Peptide 1091 pg/mL (<100)
[2021-05-29 06:13] LABS: VBG Base Excess 4.7 mmol/L; VBG HCO3 32 mmol/L (22-26); VBG pCO2 61 mmHg; VBG pH 7.33 (7.32-7.43); VBG pO2 55 mmHg
[2021-05-29] MEDS: Albuterol/Iprat 2.5/0.5MG 3 ML AMPUL.NEB INHALE ×3 (07:48→19:36)
[2021-05-29] MEDS: Lactulose 20 GM/30 ML SOLUTION 30 GM PO ×2 (08:21→12:53)
[2021-05-29] MEDS: acetaZOLAMIDE 250 MG TABLET PO ×2 (08:22→20:40)
[2021-05-29] MEDS: busPIRone HCl 5 MG TABLET 7.5 MG PO ×2 (08:22→20:39)
[2021-05-29] MEDS: Furosemide 40 MG/4 ML VIAL IVPUSH ×2 (08:22→16:50)
[2021-05-29] MEDS: Atorvastatin Calcium 40 MG TABLET PO (08:22)
[2021-05-29] MEDS: Docusate Sodium 100 MG CAPSULE PO ×2 (08:22→20:40)
[2021-05-29] MEDS: Vilazodone HCL 40 MG TABLET PO (08:22)
[2021-05-29] MEDS: Aspirin 81 MG TAB.CHEW PO (08:22)
[2021-05-29] MEDS: dilTIAZem HCL CD 180 MG CAP.ER.24H PO ×2 (08:22→20:40)
[2021-05-29] MEDS: Dicyclomine HCl 10 MG CAPSULE PO ×3 (08:22→16:50)
[2021-05-29] MEDS: Nicotine 21 MG PATCH.TD24 TRANSDERMA (08:23)
--- NOTE | 2021-05-29 09:20 | HO.PM.IMPN ---
Subjective Subjective Date of Service: 05/29/21 Interval History: F/u on copd ex, HF--still sob but improving Review of Systems Gen: no fever Resp: +sob, no cough CV: no chest, + BAR, leg edema GI: No n/v, no abd pain Neuro: No confusion Physical Exam Vital Signs: Vital Signs: Last Vital Signs Temp 97.2 F 05/29/21 08:00 Pulse 95 05/29/21 08:22 Resp 22 H 05/29/21 08:00 BP 154/79 H 05/29/21 08:22 Pulse Ox 91 L 05/29/21 08:00 Oxygen Flow Rate 5 05/25/21 12:48 Gen: mild respiratory distress HEENT: sclera anicteric, moist mucus membranes Neck: supple Lungs: diminished bilaterally Heart: regular rate and rhythm, 2/6 systolic murmur at base Abd: obese; ventral hernia upper abd; seroma lower abd Ext: 1+ LE edema bilaterally Skin: warm/well-perfused Neuro: alert and oriented x3, no focal findings Psych: appropriate affect Objective Data Current Medications Generic Name Dose Route Start Last Admin Trade Name Freq PRN Reason Stop Dose Admin Acetazolamide 500 mg 05/26/21 06:01 05/29/21 06:02 Acetazolamide Sodium 500 Mg Vial IVPUSH Not Given Q8H GERMAN Acetazolamide 250 mg 05/28/21 21:00 05/29/21 08:22 Acetazolamide 250 Mg Tablet PO 250 mg BID [facility]ERMAN Administration Albuterol/Ipratropium 3 ml 05/25/21 22:30 05/29/21 07:48 Albuterol/Iprat 2.5/0.5mg 3 Ml Ampul.Neb INHALE 3 ml RQ6H WHILE AWAKE [facility]ERMAN Administration Albuterol/Ipratropium 3 ml 05/25/21 22:13 Albuterol/Iprat 2.5/0.5mg 3 Ml Ampul.Neb INHALE RQ6H PRN sob / wheezing Aspirin 81 mg 05/26/21 09:00 05/29/21 08:22 Aspirin 81 Mg Tab.Chew PO 81 mg DAILY [facility]ERMAN Administration Atorvastatin Calcium 40 mg 05/26/21 09:00 05/29/21 08:22 Atorvastatin Calcium 40 Mg Tablet PO 40 mg DAILY [facility]ERMAN Administration Buspirone HCl 7.5 mg 05/25/21 21:36 05/29/21 08:22 Buspirone Hcl 5 Mg Tablet PO 7.5 mg BID [facility]ERMAN Administration Clonazepam 0.25 mg 05/25/21 21:36 05/26/21 19:29 Clonazepam 0.5 Mg Tablet PO 0.25 mg BEDTIME PRN Administration Sleep Dicyclomine HCl 10 mg 05/26/21 08:00 05/29/21 08:22 Dicyclomine Hcl 10 Mg Capsule PO 10 mg TIDWM [facility]ERMAN Administration Diltiazem HCl 180 mg 05/28/21 21:00 05/29/21 08:22 Diltiazem Hcl Cd 180 Mg Cap.Er.24h PO 180 mg BID [facility]ERMAN Administration Protocol Docusate Sodium 100 mg 05/27/21 13:45 05/29/21 08:22 Docusate Sodium 100 Mg Capsule PO 100 mg BID [facility] Administration Enoxaparin Sodium 40 mg 05/25/21 23:00 05/28/21 21:40 Enoxaparin Sodium 40 Mg/0.4 Ml Syringe SUBCUT 40 mg Q24H [facility]ERMAN Administration Furosemide 40 mg 05/26/21 09:00 05/29/21 08:22 Furosemide 40 Mg/4 Ml Vial IVPUSH 40 mg BID@0900,1800 [facility] Administration Protocol Lactulose 30 gm 05/28/21 15:00 05/29/21 08:21 Lactulose 20 Gm/30 Ml Solution PO 30 gm TID [facility]ERMAN Administration Levothyroxine Sodium 175 mcg 05/26/21 06:30 05/29/21 05:47 Levothyroxine Sodium 175 Mcg Tablet PO 175 mcg DAILY@0630 [facility] Administration Methylprednisolone Sodium Succinate 40 mg 05/29/21 10:00 Methylprednisolone Sod Succ 40 Mg/Ml Vial IVPUSH Q24H [facility]ERMAN Nicotine 21 mg 05/26/21 09:00 05/29/21 08:23 Nicotine 21 Mg Patch.Td24 TRANSDERMA 21 mg DAILY [facility] Administration Omeprazole 20 mg 05/26/21 06:30 05/29/21 05:47 Omeprazole 20 Mg Capsule.Dr PO 20 mg DAILY@0630 [facility] Administration Oxycodone HCl 5 mg 05/27/21 13:20 05/28/21 10:46 Oxycodone Hcl Immed Release 5 Mg Tablet PO 5 mg Q4H PRN Administration severe pain Pharmacy Consult 1 each 05/25/21 13:00 Consult Rx Perform Med Rec MISCELLANE ONCE PRN Consult order Tiotropium [place] 1 puff 05/29/21 08:00 05/29/21 07:50 Tiotropium [place] 18 Mcg Cap.W.Dev INHALE 1 puff RDAILY [facility] Administration Vilazodone HCl 40 mg 05/26/21 09:00 05/29/21 08:22 Vilazodone Hcl 40 Mg Tablet PO 40 mg DAILY [facility]MAN Administration Labs CBC & Chem 7: 05/29/21 05:23 05/29/21 05:23 Labs: Laboratory Results - last 24 hr 05/29/21 05/29/21 05/29/21 00:22 05:23 05:23 MCV 97.8 MCH 30.3 MCHC 31.0 RDW 13.4 Plt Count 213 MPV 9.9 Absolute Nucleated RBC 0.000 Nucleated RBC % (auto) 0.0 VBG pH VBG pCO2 VBG pO2 VBG HCO3 VBG O2 Saturation VBG Base Excess Anion Gap 10 L 11 L Estim Creat Clear Calc 62.6 69.9 Estimated GFR > 60 > 60 Random Glucose 126 H 93 Calcium 8.7 8.6 Magnesium 2.7 H 2.7 H B-Natriuretic Peptide 05/29/21 05/29/21 05:25 05:26 MCV MCH MCHC RDW Plt Count MPV Absolute Nucleated RBC Nucleated RBC % (auto) VBG pH 7.33 VBG pCO2 61 VBG pO2 55 VBG HCO3 32 H VBG O2 Saturation 82.0 VBG Base Excess 4.7 Anion Gap Estim Creat Clear Calc Estimated GFR Random Glucose Calcium Magnesium B-Natriuretic Peptide 1091 H Assessment and Plan (1) Acute on chronic diastolic (congestive) heart failure: Status: Acute (2) Acute on chronic respiratory failure with hypoxia and hypercapnia: Status: Acute Assessment and Plan: hospital d#5 71yo F with end-stage COPD with chronic hypoxic/hypercapneic respiratory failure, HFpEF, aortic stenosis presented with lethargy + dyspnea, admitted to ICU for acute hypercapneic respiratory failure requiring BiPAP stepped down to [facility] 05/26/21 # COPD exacerbation - change solumedrol to po prednisone, standing/prn bronchodilators. continue tiotropium # acute/chronic HFpEF - continue IV diuresis; monitor I+O, BNP, BMP, Mg. Negative 7.2L thus far this admission. Cardiology following. Change to PO by tomorrow morning # metabolic alkalosis - continue acetazolamide # DHEERAJ - should use CPAP at night; will obtain Pulm consult + overnight oximetry test; pt has not tolerated face mask in the past # - Cardiology consulted, no invasive intervention required at this time; continue to diurese # tobacco abuse - NRT # ventral hernia # abd wall seroma - Surg consulted, no intervention required, give stool regimen for constipation- will add lactulose # ascending thoracic aortic aneurysm - Vascular consult: outpt surveillance # atrial tachycardia - continue diltiazem # CAD - continue atorvastatin +ASA # hypothyroidism - continue LT4 # IBS - continue dicyclomine # mood disorder - continue vilazodone, buspirone # VTE ppx - LMWH # dispo - eventual home with VNA Quality Stroke Does the patient have a stroke diagnosis?: No VTE Prior VTE?: No VTE Risk Level:: Medical - moderate - high VTE Device Contraindication: N/A - Device Ordered VTE Drug Contraindication: N/A - Med Ordered
--- NOTE | 2021-05-29 12:26 | PM.PNCARD ---
Subjective Subjective Date of Service: 05/29/21 Interval history: Still short of breath. Review of Systems Review of Systems Yes all other systems are reviewed and are negative Cardiovascular: Reports as per HPI, Reports no additional cardiovascular complaints, Denies acrocyanosis, Denies cool extremities, Denies painful fingertips, Denies chest pain, Denies chest pain at rest, Denies diaphoresis, Denies syncope, Denies irregular heart rhythm, Denies claudication, Denies leg edema, Denies lightheadedness, Denies palpitations and Reports dyspnea Respiratory: Reports dyspnea Denies syncope Endocrine: Denies palpitations Physical Exam Vital Signs: Last Vital Signs Temp 97.2 F 05/29/21 08:00 Pulse 95 05/29/21 08:22 Resp 22 H 05/29/21 08:00 BP 154/79 H 05/29/21 08:22 Pulse Ox 91 L 05/29/21 08:00 Oxygen Flow Rate 5 05/25/21 12:48 Body Mass Index 35.9 Const General: cooperative and no acute distress [facility] Other: Unremarkable Neck Neck: Yes normal visual inspection Chest Chest palpation & inspection: normal inspection of the chest Resp Auscultation: clear to auscultation bilaterally, no crackles and no wheezes Cardio Jugular venous distension: no JVD Palpation: normal PMI Heart sounds: S1 normal heart sound present, S2 normal heart sound present, no gallops, Murmur heart sound present (3/6 CHARISSA aortic area) and no rubs GI Palpation (GI): Soft to palpation Back/Spine/Pelvis Other: unremarkable Skin General skin exam: no rashes or lesions noted Neuro Cranial nerves: Yes Other cranial nerve findings present Extrem General: Yes no clubbing, cyanosis or edema Psych Mental Status: other Results Labs and Meds Result diagrams: 05/29/21 05:23 05/29/21 05:23 Lab results: Laboratory Results - last 24 hr 05/29/21 05/29/21 05/29/21 00:22 05:23 05:23 WBC 13.2 H RBC 4.91 Hgb 14.9 Hct 48.0 H MCV 97.8 MCH 30.3 MCHC 31.0 RDW 13.4 Plt Count 213 MPV 9.9 Absolute Nucleated RBC 0.000 Nucleated RBC % (auto) 0.0 VBG pH VBG pCO2 VBG pO2 VBG HCO3 VBG O2 Saturation VBG Base Excess Sodium 146 H 145 Potassium 3.0 L 3.6 Chloride 105 106 Carbon Dioxide 34 H 32 H Anion Gap 10 L 11 L BUN 31 H 29 H Creatinine 0.87 0.78 Estim Creat Clear Calc 62.6 69.9 Estimated GFR > 60 > 60 Random Glucose 126 H 93 Calcium 8.7 8.6 Magnesium 2.7 H 2.7 H B-Natriuretic Peptide 05/29/21 05/29/21 05:25 05:26 WBC RBC Hgb Hct MCV MCH MCHC RDW Plt Count MPV Absolute Nucleated RBC Nucleated RBC % (auto) VBG pH 7.33 VBG pCO2 61 VBG pO2 55 VBG HCO3 32 H VBG O2 Saturation 82.0 VBG Base Excess 4.7 Sodium Potassium Chloride Carbon Dioxide Anion Gap BUN Creatinine Estim Creat Clear Calc Estimated GFR Random Glucose Calcium Magnesium B-Natriuretic Peptide 1091 H Progress Note: A&P Assessment and plan (1) Acute on chronic diastolic (congestive) heart failure: Status: Acute (2) Nonrheumatic aortic (valve) stenosis: Status: Acute (3) Acute on chronic respiratory failure with hypoxia and hypercapnia: Status: Acute Assessment and Plan: Pertinent data reviewed. In the recent echocardiogram, LVEF was 60-65%. With regard to the aortic valve, the mean gradient was 25 mm with a peak of 43 mm Hg. Calculated valve area was 1.18 sq cm. Dimensionless index was 0.38. Based on these parameters, this is still moderate aortic stenosis. EKG this admission showed sinus rhythm, 90/Min; left anterior fascicular block and right bundle-branch block, PACs. On telemetry, there seem to be frequent PACs. Labs reviewed. High sensitive troponins are 19.9 and 22.3. Cardiac BNP is 1015. On admission was 562. In October it was 228. CT chest findings reviewed as well. Overall, her symptoms are primarily respiratory in nature. The aortic stenosis is an additional problem but based on the hemodynamic parameters, does not appear to be the primary issue. She could have some degree of left-sided diastolic +/-right heart failure. Agree with empiric diuretics for another day or so. With regard to any intervention of the valve, not indicated at this time. Fall Risk Details Current Medications: Current Medications Generic Name Dose Route Start Last Admin Trade Name Freq PRN Reason Stop Dose Admin Acetazolamide 500 mg 05/26/21 06:01 05/29/21 06:02 Acetazolamide Sodium 500 Mg Vial IVPUSH Not Given Q8H [facility] Acetazolamide 250 mg 05/28/21 21:00 05/29/21 08:22 Acetazolamide 250 Mg Tablet PO 250 mg BID [facility] Administration Albuterol/Ipratropium 3 ml 05/25/21 22:30 05/29/21 07:48 Albuterol/Iprat 2.5/0.5mg 3 Ml Ampul.Neb INHALE 3 ml RQ6H WHILE AWAKE [facility] Administration Albuterol/Ipratropium 3 ml 05/25/21 22:13 Albuterol/Iprat 2.5/0.5mg 3 Ml Ampul.Neb INHALE RQ6H PRN sob / wheezing Aspirin 81 mg 05/26/21 09:00 05/29/21 08:22 Aspirin 81 Mg Tab.Chew PO 81 mg DAILY [facility] Administration Atorvastatin Calcium 40 mg 05/26/21 09:00 05/29/21 08:22 Atorvastatin Calcium 40 Mg Tablet PO 40 mg DAILY [facility] Administration Buspirone HCl 7.5 mg 05/25/21 21:36 05/29/21 08:22 Buspirone Hcl 5 Mg Tablet PO 7.5 mg BID [facility] Administration Clonazepam 0.25 mg 05/25/21 21:36 05/26/21 19:29 Clonazepam 0.5 Mg Tablet PO 0.25 mg BEDTIME PRN Administration Sleep Dicyclomine HCl 10 mg 05/26/21 08:00 05/29/21 08:22 Dicyclomine Hcl 10 Mg Capsule PO 10 mg TIDWM [facility] Administration Diltiazem HCl 180 mg 05/28/21 21:00 05/29/21 08:22 Diltiazem Hcl Cd 180 Mg Cap.Er.24h PO 180 mg BID [facility] Administration Protocol Docusate Sodium 100 mg 05/27/21 13:45 05/29/21 08:22 Docusate Sodium 100 Mg Capsule PO 100 mg BID [facility] Administration Enoxaparin Sodium 40 mg 05/25/21 23:00 05/28/21 21:40 Enoxaparin Sodium 40 Mg/0.4 Ml Syringe SUBCUT 40 mg Q24H [facility] Administration Furosemide 40 mg 05/26/21 09:00 05/29/21 08:22 Furosemide 40 Mg/4 Ml Vial IVPUSH 40 mg BID@0900,1800 [facility] Administration Protocol Lactulose 30 gm 05/28/21 15:00 05/29/21 08:21 Lactulose 20 Gm/30 Ml Solution PO 30 gm TID [facility] Administration Levothyroxine Sodium 175 mcg 05/26/21 06:30 05/29/21 05:47 Levothyroxine Sodium 175 Mcg Tablet PO 175 mcg DAILY@0630 [facility] Administration Nicotine 21 mg 05/26/21 09:00 05/29/21 08:23 Nicotine 21 Mg Patch.Td24 TRANSDERMA 21 mg DAILY [facility] Administration Omeprazole 20 mg 05/26/21 06:30 05/29/21 05:47 Omeprazole 20 Mg Capsule.Dr PO 20 mg DAILY@0630 [facility] Administration Oxycodone HCl 5 mg 05/27/21 13:20 05/28/21 10:46 Oxycodone Hcl Immed Release 5 Mg Tablet PO 5 mg Q4H PRN Administration severe pain Pharmacy Consult 1 each 05/25/21 13:00 Consult Rx Perform Med Rec MISCELLANE ONCE PRN Consult order Prednisone 20 mg 05/29/21 09:25 Prednisone 20 Mg Tablet PO DAILY [facility] Tiotropium [place] 1 puff 05/29/21 08:00 05/29/21 07:50 Tiotropium [place] 18 Mcg Cap.W.Dev INHALE 1 puff RDAILY [facility] Administration Vilazodone HCl 40 mg 05/26/21 09:00 05/29/21 08:22 Vilazodone Hcl 40 Mg Tablet PO 40 mg DAILY [facility] Administration Time Spent With Patient Time: Total time spent is greater than 50% in coordination of care (as documented) at patient's floor/unit and/or counseling patient: Time with patient: less than 15 minutes Progress Note: Quality Stroke Does the patient have a stroke diagnosis?: No Procedures Date of Service Date of Service: 05/29/21
[2021-05-29] MEDS: predniSONE 20 MG TABLET PO (12:53)
[2021-05-29] MEDS: Enoxaparin Sodium 40 MG/0.4 ML SYRINGE SUBCUT (23:34)
[2021-05-30] VITALS (11 sets, daily range): BP systolic 137–165; BP diastolic 74–89; PULSE 58–86; RESP 18–19; TEMP 36.3–36.9; O2SAT 92–96; BMI 35.2
[2021-05-30] MEDS: Levothyroxine Sodium 175 MCG TABLET PO (05:57)
[2021-05-30] MEDS: Omeprazole 20 MG CAPSULE.DR PO (05:57)
[2021-05-30 06:34] LABS: Anion Gap 13 (12-20); Blood Urea Nitrogen 26 mg/dL (9-16); Calcium 8.9 mg/dL (8.4-10.2); Carbon Dioxide 31 mmol/L (22-29); Chloride 105 mmol/L (96-108); Creatinine Clr Calc Pharmacy 72.6; Estimated Glomerular Filt Rate > 60; Glucose Random 93 mg/dL (60-115); Potassium 3.5 mmol/L (3.3-5.1); Sodium 145 mmol/L (135-145)
[2021-05-30] MEDS: Albuterol/Iprat 2.5/0.5MG 3 ML AMPUL.NEB INHALE ×3 (07:39→20:07)
[2021-05-30] MEDS: Nicotine 21 MG PATCH.TD24 TRANSDERMA (09:35)
[2021-05-30] MEDS: dilTIAZem HCL CD 180 MG CAP.ER.24H PO ×2 (09:38→21:02)
[2021-05-30] MEDS: busPIRone HCl 5 MG TABLET 7.5 MG PO ×2 (09:38→21:00)
[2021-05-30] MEDS: Docusate Sodium 100 MG CAPSULE PO ×2 (09:39→21:04)
[2021-05-30] MEDS: Aspirin 81 MG TAB.CHEW PO (09:40)
[2021-05-30] MEDS: Dicyclomine HCl 10 MG CAPSULE PO ×2 (09:40→17:26)
[2021-05-30] MEDS: Furosemide 40 MG/4 ML VIAL IVPUSH (09:40)
[2021-05-30] MEDS: Atorvastatin Calcium 40 MG TABLET PO (09:41)
[2021-05-30] MEDS: Vilazodone HCL 40 MG TABLET PO (09:41)
[2021-05-30] MEDS: acetaZOLAMIDE 250 MG TABLET PO ×2 (09:41→21:04)
[2021-05-30] MEDS: predniSONE 20 MG TABLET PO (09:42)
--- NOTE | 2021-05-30 12:42 | HO.PM.IMPN ---
Subjective Subjective Date of Service: 05/30/21 Interval History: F/u on copd ex, HF--Still SOB, but improving. Review of Systems Gen:?no fever Resp:?+sob, no cough CV:?no chest, + BAR,? leg edema GI:?No n/v, no abd pain Neuro:?No confusion Physical Exam Vital Signs: Vital Signs: Last Vital Signs Temp 98.0 F 05/30/21 12:00 Pulse 79 05/30/21 12:17 Resp 18 05/30/21 12:00 BP 158/80 H 05/30/21 12:17 Pulse Ox 92 05/30/21 12:00 Oxygen Flow Rate 5 05/25/21 12:48 Body Mass Index 35.2 Gen: mild respiratory distress HEENT: sclera anicteric, moist mucus membranes Neck: supple Lungs: diminished bilaterally Heart: regular rate and rhythm, 2/6 systolic murmur at base Abd: obese; ventral hernia upper abd; seroma lower abd Ext: 1+ LE edema bilaterally Skin: warm/well-perfused Neuro: alert and oriented x3, no focal findings Psych: appropriate affect Objective Data Current Medications Generic Name Dose Route Start Last Admin Trade Name Freq PRN Reason Stop Dose Admin Acetazolamide 250 mg 05/28/21 21:00 05/30/21 09:41 Acetazolamide 250 Mg Tablet PO 250 mg BID [facility] Administration Albuterol/Ipratropium 3 ml 05/25/21 22:30 05/30/21 07:39 Albuterol/Iprat 2.5/0.5mg 3 Ml Ampul.Neb INHALE 3 ml RQ6H WHILE AWAKE [facility] Administration Albuterol/Ipratropium 3 ml 05/25/21 22:13 Albuterol/Iprat 2.5/0.5mg 3 Ml Ampul.Neb INHALE RQ6H PRN sob / wheezing Aspirin 81 mg 05/26/21 09:00 05/30/21 09:40 Aspirin 81 Mg Tab.Chew PO 81 mg DAILY [facility] Administration Atorvastatin Calcium 40 mg 05/26/21 09:00 05/30/21 09:41 Atorvastatin Calcium 40 Mg Tablet PO 40 mg DAILY [facility] Administration Buspirone HCl 7.5 mg 05/25/21 21:36 05/30/21 09:38 Buspirone Hcl 5 Mg Tablet PO 7.5 mg BID [facility] Administration Clonazepam 0.25 mg 05/25/21 21:36 05/26/21 19:29 Clonazepam 0.5 Mg Tablet PO 0.25 mg BEDTIME PRN Administration Sleep Dicyclomine HCl 10 mg 05/26/21 08:00 05/30/21 12:19 Dicyclomine Hcl 10 Mg Capsule PO Not Given TIDWM [facility] Diltiazem HCl 180 mg 05/28/21 21:00 05/30/21 09:38 Diltiazem Hcl Cd 180 Mg Cap.Er.24h PO 180 mg BID [facility] Administration Protocol Docusate Sodium 100 mg 05/27/21 13:45 05/30/21 09:39 Docusate Sodium 100 Mg Capsule PO 100 mg BID [facility] Administration Enoxaparin Sodium 40 mg 05/25/21 23:00 05/29/21 23:34 Enoxaparin Sodium 40 Mg/0.4 Ml Syringe SUBCUT 40 mg Q24H [facility] Administration Furosemide 40 mg 05/26/21 09:00 05/30/21 09:40 Furosemide 40 Mg/4 Ml Vial IVPUSH 40 mg BID@0900,1800 [facility] Administration Protocol Lactulose 30 gm 05/28/21 15:00 05/30/21 09:39 Lactulose 20 Gm/30 Ml Solution PO Not Given TID [facility] Levothyroxine Sodium 175 mcg 05/26/21 06:30 05/30/21 05:57 Levothyroxine Sodium 175 Mcg Tablet PO 175 mcg DAILY@0630 [facility] Administration Nicotine 21 mg 05/26/21 09:00 05/30/21 09:35 Nicotine 21 Mg Patch.Td24 TRANSDERMA 21 mg DAILY [facility] Administration Omeprazole 20 mg 05/26/21 06:30 05/30/21 05:57 Omeprazole 20 Mg Capsule. PO 20 mg DAILY@0630 [facility] Administration Oxycodone HCl 5 mg 05/27/21 13:20 05/28/21 10:46 Oxycodone Hcl Immed Release 5 Mg Tablet PO 5 mg Q4H PRN Administration severe pain Pharmacy Consult 1 each 05/25/21 13:00 Consult Rx Perform Med Rec MISCELLANE ONCE PRN Consult order Prednisone 20 mg 05/29/21 09:25 05/30/21 09:42 Prednisone 20 Mg Tablet PO 20 mg DAILY [facility] Administration Tiotropium [place] 1 puff 05/29/21 08:00 05/30/21 07:39 Tiotropium [place] 18 Mcg Cap.W.Dev INHALE 1 puff RDAILY [facility] Administration Vilazodone HCl 40 mg 05/26/21 09:00 05/30/21 09:41 Vilazodone Hcl 40 Mg Tablet PO 40 mg DAILY [facility] Administration Labs CBC & Chem 7: 05/29/21 05:23 05/30/21 05:29 Labs: Laboratory Results - last 24 hr 05/30/21 05:29 Anion Gap 13 Estim Creat Clear Calc 72.6 Estimated GFR > 60 Random Glucose 93 Calcium 8.9 Assessment and Plan (1) Acute on chronic diastolic (congestive) heart failure: Status: Acute (2) Acute on chronic respiratory failure with hypoxia and hypercapnia: Status: Acute Assessment and Plan: 71yo F with end-stage COPD with chronic hypoxic/hypercapneic respiratory failure, HFpEF, aortic stenosis presented with lethargy + dyspnea, admitted to ICU for acute hypercapneic respiratory failure requiring BiPAP stepped down to IMC 05/26/21 # COPD exacerbation - changed solumedrol to po prednisone on 05/29,, standing/prn bronchodilators. continue tiotropium # acute/chronic HFpEF - [place] Lasix to PO, starting today, monitor I+O, BNP, BMP, Mg. Negative 8.4 L thus far this admission. Cardiology following. Change # metabolic alkalosis - continue acetazolamide # DHEERAJ--doesn't tolerate CPAP, breathing exercixse, home O2 # - Cardiology consulted, no invasive intervention required at this time; continue to diurese # tobacco abuse - NRT # ventral hernia # abd wall seroma - Surg consulted, no intervention required, give stool regimen for constipation- will add lactulose # ascending thoracic aortic aneurysm - Vascular consult: outpt surveillance # atrial tachycardia - continue diltiazem # CAD - continue atorvastatin +ASA # hypothyroidism - continue LT4 # IBS - continue dicyclomine # mood disorder - continue vilazodone, buspirone # VTE ppx - LMWH # dispo - eventual home with VNA by tomorrow Quality Stroke Does the patient have a stroke diagnosis?: No VTE Prior VTE?: No VTE Risk Level:: Medical - moderate - high VTE Device Contraindication: N/A - Device Ordered VTE Drug Contraindication: N/A - Med Ordered
--- NOTE | 2021-05-30 13:16 | PM.CNGS ---
History of Present Illness Consult details Consult date: 05/30/21 Narrative: Very pleasant 71-year-old female presents for evaluation regarding thoracic aortic aneurysm. She originally presented to the hospital for acute exacerbation of Congestive heart failure in was admitted to the intensive care unit. Upon workup and CT scan she was noted to have an ascending thoracic aortic aneurysm. It appears that this has been a known entity and is stable. She at the current time has been transferred out to the floor and her respiratory status has significantly improved. She is now for vascular evaluation. Of note she has been followed by Cardiology. In addition she continues to smoke and has a significant smoking history. Review of Systems Review of Systems: Yes all other systems are reviewed and are negative Constitutional: Constitutional: Reports no additional constitutional complaints and Reports snoring ENT: Reports Normal hearing present Cardiovascular: Cardiovascular: Denies chest pain, Denies chest pain at rest, Denies chest pain with activity, Denies pedal edema, Reports dyspnea and Reports dyspnea on exertion Respiratory: Respiratory: Reports cough, Reports dyspnea, Reports dyspnea on exertion and Reports snoring Gastrointestinal: Gastrointestinal: Denies abdominal pain Musculoskeletal: Musculoskeletal: Denies abnormal gait, Denies muscle cramps and Denies radiating pain into limb Integumentary/Breasts: Skin/Breast: Denies skin ulcer and Denies wounds Neurologic: Reports Normal hearing present and Denies abnormal gait Psychiatric: Psychiatric: Reports no additional psychiatric complaints [facility] Past Medical History Medical History (Updated 05/27/21 @ 14:40 by Danny Espitia MD) Atherosclerotic cardiovascular disease Atrial arrhythmia Bifascicular block Chronic diastolic (congestive) heart failure COPD (chronic obstructive pulmonary disease) COPD (chronic obstructive pulmonary disease) Enuresis Nonrheumatic aortic (valve) stenosis On home oxygen therapy DHEERAJ (obstructive sleep apnea) Respiratory failure with hypoxia and hypercapnia Thoracic aortic aneurysm (TAA) Urge incontinence Family History Family History Father No problems noted. Mother No problems noted. Surgical History Surgical History History of umbilical hernia repair Social History Social History Household Members: None Housing: Other Housing Other:: lives alone - unsure if house or apt Unable to assess alcohol history related to: Unable to respond and Refusing to respond Alcohol intake: never Patient Tobacco Use Status: Current everyday Tobacco user Use of substances other than those prescribed or required for medical reasons: Unable to respond Currently Displaying Signs/Symptoms of Drug Intoxication Withdrawal: No Spiritual Healthcare Practices: unknown [employer] Healthcare Practices: unknown Cultural Healthcare Practices: unknown Advance Directives: Yes (unsure of date) Advance Directives Information Provided: No Advance Directives on File: No Advance Directives Date on File: 05/25/21 Do you have thoughts of harming others: None Do you have a plan to hurt others: No Plan Recently lost weight without trying: Unsure Patient : No : No Poor oral hygiene: No service: No Current occupational status: disabled Meds Allergies Allergy/AdvReac Type Severity Reaction Status Date / Time morphine [Morphine] Allergy Unknown UNKNOWN Verified 05/25/21 12:58 Active Medications: Current Medications Generic Name Dose Route Start Last Admin Trade Name Freq PRN Reason Stop Dose Admin Acetazolamide 250 mg 05/28/21 21:00 05/30/21 09:41 Acetazolamide 250 Mg Tablet PO 250 mg BID [facility] Administration Albuterol/Ipratropium 3 ml 05/25/21 22:30 05/30/21 07:39 Albuterol/Iprat 2.5/0.5mg 3 Ml Ampul.Neb INHALE 3 ml RQ6H WHILE AWAKE [facility] Administration Albuterol/Ipratropium 3 ml 05/25/21 22:13 Albuterol/Iprat 2.5/0.5mg 3 Ml Ampul.Neb INHALE RQ6H PRN sob / wheezing Aspirin 81 mg 05/26/21 09:00 05/30/21 09:40 Aspirin 81 Mg Tab.Chew PO 81 mg DAILY [facility] Administration Atorvastatin Calcium 40 mg 05/26/21 09:00 05/30/21 09:41 Atorvastatin Calcium 40 Mg Tablet PO 40 mg DAILY [facility] Administration Buspirone HCl 7.5 mg 05/25/21 21:36 05/30/21 09:38 Buspirone Hcl 5 Mg Tablet PO 7.5 mg BID [facility] Administration Clonazepam 0.25 mg 05/25/21 21:36 05/26/21 19:29 Clonazepam 0.5 Mg Tablet PO 0.25 mg BEDTIME PRN Administration Sleep Dicyclomine HCl 10 mg 05/26/21 08:00 05/30/21 12:19 Dicyclomine Hcl 10 Mg Capsule PO Not Given TIDWM [facility] Diltiazem HCl 180 mg 05/28/21 21:00 05/30/21 09:38 Diltiazem Hcl Cd 180 Mg Cap.Er.24h PO 180 mg BID [facility] Administration Protocol Docusate Sodium 100 mg 05/27/21 13:45 05/30/21 09:39 Docusate Sodium 100 Mg Capsule PO 100 mg BID [facility] Administration Enoxaparin Sodium 40 mg 05/25/21 23:00 05/29/21 23:34 Enoxaparin Sodium 40 Mg/0.4 Ml Syringe SUBCUT 40 mg Q24H [facility] Administration Furosemide 40 mg 05/30/21 18:00 Furosemide 40 Mg Tablet PO BID@0900,1800 [facility] Protocol Lactulose 30 gm 05/28/21 15:00 05/30/21 09:39 Lactulose 20 Gm/30 Ml Solution PO Not Given TID [facility] Levothyroxine Sodium 175 mcg 05/26/21 06:30 05/30/21 05:57 Levothyroxine Sodium 175 Mcg Tablet PO 175 mcg DAILY@0630 [facility] Administration Nicotine 21 mg 05/26/21 09:00 05/30/21 09:35 Nicotine 21 Mg Patch.Td24 TRANSDERMA 21 mg DAILY [facility] Administration Omeprazole 20 mg 05/26/21 06:30 05/30/21 05:57 Omeprazole 20 Mg Capsule.Dr PO 20 mg DAILY@0630 [facility] Administration Oxycodone HCl 5 mg 05/27/21 13:20 05/28/21 10:46 Oxycodone Hcl Immed Release 5 Mg Tablet PO 5 mg Q4H PRN Administration severe pain Pharmacy Consult 1 each 05/25/21 13:00 Consult Rx Perform Med Rec MISCELLANE ONCE PRN Consult order Prednisone 20 mg 05/29/21 09:25 05/30/21 09:42 Prednisone 20 Mg Tablet PO 20 mg DAILY [facility] Administration Tiotropium [place] 1 puff 05/29/21 08:00 05/30/21 07:39 Tiotropium [place] 18 Mcg Cap.W.Dev INHALE 1 puff RDAILY [facility] Administration Vilazodone HCl 40 mg 05/26/21 09:00 05/30/21 09:41 Vilazodone Hcl 40 Mg Tablet PO 40 mg DAILY [facility] Administration Home Medications Medication Instructions Recorded Confirmed Last Taken Type atorvastatin 40 mg tablet 40 mg PO DAILY tab 08/19/20 05/25/21 Unknown History diltiazem HCl 120 mg 120 mg PO BID cap 08/19/20 05/25/21 Unknown History capsule,extended release 12 hr guaifenesin 600 mg tablet, 600 mg PO BID 08/30/20 05/25/21 Unknown History extended release 12 hr (Mucinex) ipratropium 0.5 mg-albuterol 3 mg 3 ml INHALATION Q6H PRN 08/30/20 05/25/21 Unknown History (2.5 mg base)/3 mL nebulization soln tiotropium bromide 18 mcg capsule 1 cap INHALATION DAILY 08/30/20 05/25/21 Unknown History with inhalation device (Spiriva with HandiHaler) clonazepam 0.5 mg tablet 0.25 mg PO BEDTIME PRN tab 10/04/20 05/25/21 Unknown History dicyclomine 10 mg capsule 10 mg PO TIDWM cap 10/04/20 05/25/21 Unknown History levothyroxine 175 mcg tablet 175 mcg PO DAILY@0630 tab 10/04/20 05/25/21 Unknown History omeprazole 20 mg capsule,delayed 20 mg PO DAILY cap 10/04/20 05/25/21 Unknown History release vilazodone 40 mg tablet 40 mg PO DAILY tab 10/04/20 05/25/21 Unknown History lactulose 10 gram/15 mL oral 15 ml PO BID PRN 10/25/20 05/25/21 Unknown History solution furosemide 20 mg tablet 60 mg PO DAILY tab 11/30/20 05/25/21 Unknown History cyanocobalamin (vitamin B-12) 1,000 mcg IM Q30D 03/31/21 05/25/21 Unknown History 1,000 mcg/mL injection solution gabapentin 300 mg capsule 300 mg PO BEDTIME 03/31/21 05/25/21 Unknown History melatonin 5 mg tablet 5 mg PO BEDTIME PRN 03/31/21 05/25/21 Unknown History acetaminophen 325 mg tablet 650 mg PO Q4H PRN 05/25/21 05/25/21 Unknown History aspirin 81 mg chewable tablet 81 mg PO DAILY 05/25/21 05/25/21 Unknown History buspirone 7.5 mg tablet 1 tab PO BID 05/25/21 05/25/21 Unknown History fluticasone furoate 200 1 inh INHALATION BEDTIME 05/25/21 05/25/21 Unknown History mcg-vilanterol 25 mcg/dose inhalation powder (Breo Ellipta) oxybutynin chloride 15 mg 15 mg PO BID 05/25/21 05/25/21 Unknown History tablet,extended release 24 hr simethicone 80 mg chewable tablet 80 mg PO BEDTIME 05/25/21 05/25/21 Unknown History Physical Exam Vital Signs: Vital Signs: Last Vital Signs Temp 98.0 F 05/30/21 12:00 Pulse 79 05/30/21 12:17 Resp 18 05/30/21 12:00 BP 158/80 H 05/30/21 12:17 Pulse Ox 92 05/30/21 12:00 Oxygen Flow Rate 5 05/25/21 12:48 Body Mass Index 35.2 Const: General: cooperative, healthy appearing and comfortable Orientation/consciousness: oriented to person, oriented to place and oriented to time HENMT: Head: Yes normal to inspection Neck: Neck: Yes normal visual inspection Carotids: no bruits Chest: Chest palpation & inspection: normal inspection of the chest Resp: Effort & Inspection: normal respiratory effort and able to speak in complete sentences Auscultation: clear to auscultation bilaterally, no crackles, no rales, no rhonchi and no wheezes Cardio: Rate: regular rate Rhythm: regular rhythm Heart sounds: S1 normal heart sound present and S2 normal heart sound present Bruits: no carotid bruits Peripheral pulses: Peripheral pulses 2+ throughout GI: Inspection: Yes normal to inspection Skin: Wounds: no wounds Hair: normal Neuro: General: oriented to person, oriented to place and oriented to time Cranial nerves: Yes CN's II-XII intact bilaterally and Yes Normal hearing present Cognition (Neuro): normal cognition Motor exam (neuro): 5/5 motor strength present throughout Extrem: Other: venous exam: No significant superficial varicosities or spider telangiectasias, minimal edema General: No clubbing, No cyanosis and No edema Psych: Appearance: grossly normal Mental Status: mental status grossly normal Speech and movement: Normal speech and movement present Results Labs Result diagrams: 05/29/21 05:23 05/30/21 05:29 Labs: Abnormal lab results 05/30/21 Range/Units 05:29 Carbon Dioxide 31 H (22-29) mmol/L BUN 26 H (9-16) mg/dL BMP 08/16/21 05:29 Sodium 145 Potassium 3.5 Chloride 105 Carbon Dioxide 31 H BUN 26 H Creatinine 0.74 Calcium 8.9 Urine 05/25/21 Range/Units 14:41 Urine Color YELLOW Urine Appearance CLEAR Urine pH 6.0 (5.0-8.0) Ur Specific [place] 1.010 (1.005-1.025) Urine Protein NEG (NEG-TRACE) MG/DL Urine Glucose (UA) NEG (NEG) MG/DL All other labs normal. Assessment and Plan (1) Thoracic aortic aneurysm (TAA): Status: Acute In short patient has a 4.5 cm at thoracic aortic aneurysm. I was able to review written report and images of the study. It appears to be stable although there is some calcification at the arch. I would like her overall congestive heart failure issues to improve. We can for surveil this as an outpatient. In addition she is being followed by Cardiology who is surveil Ng her for her valve stenosis. She will follow up with us on an as-needed basis. Thank you for allowing us to assist in her care. If there are any questions or concerns please do not hesitate to contact us. Procedures Date of Service Date of Service: 05/30/21
[2021-05-30] MEDS: Furosemide 40 MG TABLET PO (17:26)
[2021-05-30] MEDS: clonazePAM 0.5 MG TABLET 0.25 MG PO (21:00)
[2021-05-30] MEDS: Lactulose 20 GM/30 ML SOLUTION 30 GM PO (21:05)
[2021-05-30] MEDS: Enoxaparin Sodium 40 MG/0.4 ML SYRINGE SUBCUT (23:32)
[2021-05-31] VITALS (12 sets, daily range): BP systolic 140–186; BP diastolic 67–88; PULSE 60–102; RESP 16–18; TEMP 36.1–36.9; O2SAT 92–95; BMI 34.7
[2021-05-31] MEDS: Levothyroxine Sodium 175 MCG TABLET PO (05:57)
[2021-05-31] MEDS: Omeprazole 20 MG CAPSULE.DR PO (05:57)
--- NOTE | 2021-05-31 07:40 | PC.NURSE ---
pt through dermatology physician premedicated with klonopin as ordered in prep for cpap - tolerated well through remainder of shift (approx 6 hrs)
[2021-05-31] MEDS: Lactulose 20 GM/30 ML SOLUTION 30 GM PO ×2 (08:19→21:41)
[2021-05-31] MEDS: Nicotine 21 MG PATCH.TD24 TRANSDERMA (08:20)
[2021-05-31] MEDS: Dicyclomine HCl 10 MG CAPSULE PO ×3 (08:21→17:40)
[2021-05-31] MEDS: busPIRone HCl 5 MG TABLET 7.5 MG PO ×2 (08:21→21:49)
[2021-05-31] MEDS: Vilazodone HCL 40 MG TABLET PO (08:21)
[2021-05-31] MEDS: Furosemide 40 MG TABLET PO ×2 (08:21→17:40)
[2021-05-31] MEDS: Docusate Sodium 100 MG CAPSULE PO ×2 (08:21→21:49)
[2021-05-31] MEDS: dilTIAZem HCL CD 180 MG CAP.ER.24H PO ×2 (08:21→21:42)
[2021-05-31] MEDS: Atorvastatin Calcium 40 MG TABLET PO (08:21)
[2021-05-31] MEDS: predniSONE 20 MG TABLET PO (08:21)
[2021-05-31] MEDS: Aspirin 81 MG TAB.CHEW PO (08:21)
[2021-05-31] MEDS: acetaZOLAMIDE 250 MG TABLET PO ×2 (08:21→21:50)
--- NOTE | 2021-05-31 11:03 | PM.PNCARD ---
Subjective Subjective Date of Service: 05/31/21 Interval history: Still short of breath and weak. Review of Systems Review of Systems Yes all other systems are reviewed and are negative Cardiovascular: Reports as per HPI, Reports no additional cardiovascular complaints, Denies acrocyanosis, Denies cool extremities, Denies painful fingertips, Denies chest pain, Denies chest pain at rest, Denies diaphoresis, Denies syncope, Denies irregular heart rhythm, Denies claudication, Denies leg edema, Denies lightheadedness, Denies palpitations and Reports dyspnea Respiratory: Reports dyspnea Denies syncope Endocrine: Denies palpitations Physical Exam Vital Signs: Last Vital Signs Temp 97.9 F 05/31/21 07:47 Pulse 68 05/31/21 10:35 Resp 18 05/31/21 07:45 BP 186/77 H 05/31/21 10:35 Pulse Ox 93 05/31/21 07:45 Oxygen Flow Rate 5 05/25/21 12:48 Body Mass Index 34.7 Const General: cooperative and no acute distress [facility] Other: Unremarkable Neck Neck: Yes normal visual inspection Chest Chest palpation & inspection: normal inspection of the chest Resp Auscultation: clear to auscultation bilaterally, no crackles and no wheezes Cardio Jugular venous distension: no JVD Palpation: normal PMI Heart sounds: S1 normal heart sound present, S2 normal heart sound present, no gallops, Murmur heart sound present (3/6 CHARISSA aortic area) and no rubs GI Palpation (GI): Soft to palpation Back/Spine/Pelvis Other: unremarkable Skin General skin exam: no rashes or lesions noted Neuro Cranial nerves: Yes Other cranial nerve findings present Extrem General: Yes no clubbing, cyanosis or edema Psych Mental Status: other Results Labs and Meds Result diagrams: 05/29/21 05:23 05/30/21 05:29 Progress Note: A&P Assessment and plan (1) Acute on chronic diastolic (congestive) heart failure: Status: Acute (2) Nonrheumatic aortic (valve) stenosis: Status: Acute (3) Acute on chronic respiratory failure with hypoxia and hypercapnia: Status: Acute Assessment and Plan: Pertinent data reviewed. In the recent echocardiogram, LVEF was 60-65%. With regard to the aortic valve, the mean gradient was 25 mm with a peak of 43 mm Hg. Calculated valve area was 1.18 sq cm. Dimensionless index was 0.38. Based on these parameters, this is still moderate aortic stenosis. EKG this admission showed sinus rhythm, 90/Min; left anterior fascicular block and right bundle-branch block, PACs. On telemetry, there seem to be frequent PACs. CT chest findings reviewed as well. Overall, her symptoms are primarily respiratory in nature. The aortic stenosis is an additional problem but based on the hemodynamic parameters, does not appear to be the primary issue. She could have some degree of left-sided diastolic +/-right heart failure. Empiric diuretics as needed. With regard to any intervention of the valve, not indicated at this time. Fall Risk Details Current Medications: Current Medications Generic Name Dose Route Start Last Admin Trade Name Freq PRN Reason Stop Dose Admin Acetazolamide 250 mg 05/28/21 21:00 05/31/21 08:21 Acetazolamide 250 Mg Tablet PO 250 mg BID GERMAN Administration Albuterol/Ipratropium 3 ml 05/25/21 22:30 05/31/21 07:31 Albuterol/Iprat 2.5/0.5mg 3 Ml Ampul.Neb INHALE Not Given RQ6H WHILE AWAKE GERMAN Albuterol/Ipratropium 3 ml 05/25/21 22:13 Albuterol/Iprat 2.5/0.5mg 3 Ml Ampul.Neb INHALE RQ6H PRN sob / wheezing Aspirin 81 mg 05/26/21 09:00 05/31/21 08:21 Aspirin 81 Mg Tab.Chew PO 81 mg DAILY GERMAN Administration Atorvastatin Calcium 40 mg 05/26/21 09:00 05/31/21 08:21 Atorvastatin Calcium 40 Mg Tablet PO 40 mg DAILY GERMAN Administration Buspirone HCl 7.5 mg 05/25/21 21:36 05/31/21 08:21 Buspirone Hcl 5 Mg Tablet PO 7.5 mg BID GERMAN Administration Dicyclomine HCl 10 mg 05/26/21 08:00 05/31/21 08:21 Dicyclomine Hcl 10 Mg Capsule PO 10 mg TIDWM GERMAN Administration Diltiazem HCl 180 mg 05/28/21 21:00 05/31/21 08:21 Diltiazem Hcl Cd 180 Mg Cap.Er.24h PO 180 mg BID GERMAN Administration Protocol Docusate Sodium 100 mg 05/27/21 13:45 05/31/21 08:21 Docusate Sodium 100 Mg Capsule PO 100 mg BID GERMAN Administration Enoxaparin Sodium 40 mg 05/25/21 23:00 05/30/21 23:32 Enoxaparin Sodium 40 Mg/0.4 Ml Syringe SUBCUT 40 mg Q24H GERMAN Administration Furosemide 40 mg 05/30/21 18:00 05/31/21 08:21 Furosemide 40 Mg Tablet PO 40 mg BID@0900,1800 GERMAN Administration Protocol Lactulose 30 gm 05/28/21 15:00 05/31/21 08:19 Lactulose 20 Gm/30 Ml Solution PO 30 gm TID GERMAN Administration Levothyroxine Sodium 175 mcg 05/26/21 06:30 05/31/21 05:57 Levothyroxine Sodium 175 Mcg Tablet PO 175 mcg DAILY@0630 GERMAN Administration Nicotine 21 mg 05/26/21 09:00 05/31/21 08:20 Nicotine 21 Mg Patch.Td24 TRANSDERMA 21 mg DAILY GERMAN Administration Omeprazole 20 mg 05/26/21 06:30 05/31/21 05:57 Omeprazole 20 Mg Capsule.Dr PO 20 mg DAILY@0630 [facility] Administration Oxycodone HCl 5 mg 05/27/21 13:20 05/28/21 10:46 Oxycodone Hcl Immed Release 5 Mg Tablet PO 5 mg Q4H PRN Administration severe pain Pharmacy Consult 1 each 05/25/21 13:00 Consult Rx Perform Med Rec MISCELLANE ONCE PRN Consult order Prednisone 20 mg 05/29/21 09:25 05/31/21 08:21 Prednisone 20 Mg Tablet PO 20 mg DAILY GERMAN Administration Tiotropium [place] 1 puff 05/29/21 08:00 05/31/21 07:32 Tiotropium [place] 18 Mcg Cap.W.Dev INHALE Not Given RDAILY [facility] Vilazodone HCl 40 mg 05/26/21 09:00 05/31/21 08:21 Vilazodone Hcl 40 Mg Tablet PO 40 mg DAILY [facility] Administration Time Spent With Patient Time: Total time spent is greater than 50% in coordination of care (as documented) at patient's floor/unit and/or counseling patient: Time with patient: less than 15 minutes Progress Note: Quality Stroke Does the patient have a stroke diagnosis?: No Procedures Date of Service Date of Service: 05/31/21
--- NOTE | 2021-05-31 14:07 | MHC.CM.PN ---
CM met with Patient to discuss dc planning. Patient stated that she does not feel ready to go home today (feels week, issues with her bowels and breathing); CM relayed this message to MD. Patient also mentioned having a leak in the bathroom. Patient's Son is presently living in this same apartment. CM spoke with Patient's Daughter/HCP/Suzan @ [phone], who confirmed that the apartment above Patient's has a leak that comes into Patient's bathroom. Suzan indicated that Patient's Son has informed the Landlord of the leak and that they are waiting for the Parachutist/Combatant Diver Qualified to repair it. Suzan did not feel that this leak would prevent her Mother from returning to home safely. Suzan is agreeable to speak with Patient further to assist as needed.CM will follow.
[2021-05-31] MEDS: Albuterol/Iprat 2.5/0.5MG 3 ML AMPUL.NEB INHALE (19:24)
[2021-05-31] MEDS: Enoxaparin Sodium 40 MG/0.4 ML SYRINGE SUBCUT (21:40)
[2021-05-31] MEDS: clonazePAM 0.5 MG TABLET 0.25 MG PO (22:22)
[2021-06-01] VITALS (10 sets, daily range): BP systolic 121–164; BP diastolic 77–93; PULSE 58–92; RESP 16–22; TEMP 36.1–37.1; O2SAT 92–97; BMI 33.6
[2021-06-01] MEDS: Levothyroxine Sodium 175 MCG TABLET PO (05:45)
[2021-06-01] MEDS: Omeprazole 20 MG CAPSULE.DR PO (05:45)
--- NOTE | 2021-06-01 08:24 | HO.PM.IMPN ---
Subjective Subjective Date of Service: 05/31/21 Interval History: chf- sob seems slightly better Review of Systems no chest pain or abd pain or fever or chills Physical Exam Vital Signs: Vital Signs: Last Vital Signs Oxygen Flow Rate 5 05/25/21 12:48 Body Mass Index 33.6 Gen: mild respiratory distress HEENT: sclera anicteric, moist mucus membranes Lungs: air entry improving ,slightly diminshed at bases. Heart: regular rate and rhythm, 2/6 systolic murmur at base Abd: obese; ventral hernia upper abd; seroma lower abd Ext: 1+ LE edema bilaterally Skin: warm/well-perfused Neuro: alert and oriented x3, no focal findings Psych: appropriate affect Objective Data Current Medications Generic Name Dose Route Start Last Admin Trade Name Freq PRN Reason Stop Dose Admin Acetazolamide 250 mg 05/28/21 21:00 05/31/21 21:50 Acetazolamide 250 Mg Tablet PO 250 mg BID GERMAN Administration Albuterol/Ipratropium 3 ml 05/25/21 22:30 06/01/21 07:33 Albuterol/Iprat 2.5/0.5mg 3 Ml Ampul.Neb INHALE Not Given RQ6H WHILE AWAKE GERMAN Albuterol/Ipratropium 3 ml 05/25/21 22:13 Albuterol/Iprat 2.5/0.5mg 3 Ml Ampul.Neb INHALE RQ6H PRN sob / wheezing Aspirin 81 mg 05/26/21 09:00 05/31/21 08:21 Aspirin 81 Mg Tab.Chew PO 81 mg DAILY [facility] Administration Atorvastatin Calcium 40 mg 05/26/21 09:00 05/31/21 08:21 Atorvastatin Calcium 40 Mg Tablet PO 40 mg DAILY [facility] Administration Buspirone HCl 7.5 mg 05/25/21 21:36 05/31/21 21:49 Buspirone Hcl 5 Mg Tablet PO 7.5 mg BID GERMAN Administration Clonazepam 0.25 mg 05/31/21 21:50 05/31/21 22:22 Clonazepam 0.5 Mg Tablet PO 0.25 mg BEDTIME PRN Administration Anxiety Dicyclomine HCl 10 mg 05/26/21 08:00 05/31/21 17:40 Dicyclomine Hcl 10 Mg Capsule PO 10 mg TIDWM [facility] Administration Diltiazem HCl 180 mg 05/28/21 21:00 05/31/21 21:42 Diltiazem Hcl Cd 180 Mg Cap.Er.24h PO 180 mg BID GERMAN Administration Protocol Docusate Sodium 100 mg 05/27/21 13:45 05/31/21 21:49 Docusate Sodium 100 Mg Capsule PO 100 mg BID GERMAN Administration Enoxaparin Sodium 40 mg 05/25/21 23:00 05/31/21 21:40 Enoxaparin Sodium 40 Mg/0.4 Ml Syringe SUBCUT 40 mg Q24H [facility]MAN Administration Furosemide 40 mg 05/30/21 18:00 05/31/21 17:40 Furosemide 40 Mg Tablet PO 40 mg BID@0900,1800 [facility] Administration Protocol Lactulose 30 gm 05/28/21 15:00 05/31/21 21:41 Lactulose 20 Gm/30 Ml Solution PO 30 gm TID [facility]ERMAN Administration Levothyroxine Sodium 175 mcg 05/26/21 06:30 06/01/21 05:45 Levothyroxine Sodium 175 Mcg Tablet PO 175 mcg DAILY@0630 [facility] Administration Mirabegron 50 mg 06/01/21 09:00 Mirabegron 50 Mg Tab.Er.24h PO BID [facility] Nicotine 21 mg 05/26/21 09:00 05/31/21 08:20 Nicotine 21 Mg Patch.Td24 TRANSDERMA 21 mg DAILY [facility] Administration Omeprazole 20 mg 05/26/21 06:30 06/01/21 05:45 Omeprazole 20 Mg Capsule.Dr PO 20 mg DAILY@0630 [facility] Administration Oxycodone HCl 5 mg 05/27/21 13:20 05/28/21 10:46 Oxycodone Hcl Immed Release 5 Mg Tablet PO 5 mg Q4H PRN Administration severe pain Pharmacy Consult 1 each 05/25/21 13:00 Consult Rx Perform Med Rec MISCELLANE ONCE PRN Consult order Prednisone 20 mg 05/29/21 09:25 05/31/21 08:21 Prednisone 20 Mg Tablet PO 20 mg DAILY [facility]ERMAN Administration Tiotropium [place] 1 puff 05/29/21 08:00 06/01/21 07:33 Tiotropium [place] 18 Mcg Cap.W.Dev INHALE Not Given RDAILY [facility] Vilazodone HCl 40 mg 05/26/21 09:00 05/31/21 08:21 Vilazodone Hcl 40 Mg Tablet PO 40 mg DAILY [facility]ERMAN Administration Labs CBC & Chem 7: 05/29/21 05:23 05/30/21 05:29 Assessment and Plan (1) Acute CHF: Status: Acute Assessment and Plan: 71yo F with end-stage COPD with chronic hypoxic/hypercapneic respiratory failure, HFpEF, aortic stenosis presented with lethargy + dyspnea, admitted to ICU for acute hypercapneic respiratory failure requiring BiPAP stepped down to [facility] 05/26/21 1. COPD exacerbation - changed solumedrol to po prednisone on 05/29,, standing/prn bronchodilators.? continue tiotropium 2. acute/chronic HFpEF - Changet Lasix to PO, starting today, monitor I+O, BNP, BMP, Mg. Negative 8.4 L thus far this admission.? Cardiology following. Change 3. metabolic alkalosis - continue acetazolamide 4. DHEERAJ--doesn't tolerate CPAP, breathing exercixse, home O2 5. - Cardiology consulted, no invasive intervention required at this time; continue to diurese 6. tobacco abuse - NRT 7. ventral hernia abd wall seroma - Surg consulted, no intervention required, give stool regimen for constipation- will add lactulose 8. ascending thoracic aortic aneurysm - Vascular consult: outpt surveillance 9. atrial tachycardia - continue diltiazem 10. CAD - continue atorvastatin +ASA 11. hypothyroidism - continue LT4 12.IBS - continue dicyclomine 13. mood disorder - continue vilazodone, buspirone VTE ppx - LMWH Quality Stroke Does the patient have a stroke diagnosis?: No VTE Prior VTE?: No VTE Risk Level:: Medical - moderate - high VTE Device Contraindication: N/A - Device Ordered VTE Drug Contraindication: N/A - Med Ordered
[2021-06-01] MEDS: Dicyclomine HCl 10 MG CAPSULE PO ×3 (09:07→16:59)
[2021-06-01] MEDS: Vilazodone HCL 40 MG TABLET PO (09:07)
[2021-06-01] MEDS: Furosemide 40 MG TABLET PO ×2 (09:07→16:59)
[2021-06-01] MEDS: Docusate Sodium 100 MG CAPSULE PO ×2 (09:07→22:36)
[2021-06-01] MEDS: acetaZOLAMIDE 250 MG TABLET PO ×2 (09:07→22:36)
[2021-06-01] MEDS: Atorvastatin Calcium 40 MG TABLET PO (09:08)
[2021-06-01] MEDS: busPIRone HCl 5 MG TABLET 7.5 MG PO ×2 (09:08→22:38)
[2021-06-01] MEDS: dilTIAZem HCL CD 180 MG CAP.ER.24H PO ×2 (09:08→22:36)
[2021-06-01] MEDS: Mirabegron 50 MG TAB.ER.24H PO ×2 (09:08→22:36)
[2021-06-01] MEDS: predniSONE 20 MG TABLET PO (09:08)
[2021-06-01] MEDS: Aspirin 81 MG TAB.CHEW PO (09:08)
[2021-06-01] MEDS: Nicotine 21 MG PATCH.TD24 TRANSDERMA (09:09)
--- NOTE | 2021-06-01 13:20 | P.DS_ITS ---
DS: Providers Provider Date of Service: 06/01/21 Date of admission: 05/25/21 19:09 Date of discharge: 06/01/21 Primary care physician: Danny Lorenzana MD Consults: 05/27/21 08:14 Consult to Cardiology Routine Consulting Provider: [facility] Cardiovascular Services Reason for consultation: mod-sev AoS -> CHF? Consult to General Surgery Routine Consulting Provider: [facility] General Surgeons Reason for consultation: golf-ball sized hard, mobile mass caudal to lg ventral hernia Consult to Vascular Surgery Routine Consulting Provider: Alhaji Martins Reason for consultation: thoracic aneurysm 4.5 cm 05/27/21 11:24 Consult to Pulmonology Routine Consulting Provider: [facility] Pulmonology Services Reason for consultation: obesity /DHEERAJ< needs CPAP DS: Diagnosis Discharge Diagnosis (1) Acute CHF: Status: Acute DS: Summary Hospital Course Hospital Course: 71yo F with end-stage COPD with chronic hypoxic/hypercapneic respiratory failure, HFpEF, aortic stenosis presented with lethargy + dyspnea, admitted to ICU for acute hypercapneic respiratory failure requiring BiPAP. Hospital course: Patient was admitted to the hospital secondary to COPD exacerbation, CHF exacerbation: Subsequently treated with nebs, steroids, oxygen support and seems to be improving, Also received IV Lasix for CHF exacerbation, has : Seems to be improved. Patient was seen by Pulmonary and Cardiology during this admission: Recommended to continue nebs, steroid and oxygen, acetazolamide also added continue p.o. steroids and acetazolamide as prescribed. Continue home Lasix. Follow-up with the outpatient pulmonary and cardiology. Ventral hernia:?abd wall seroma Surg consulted, no intervention required, give stool regimen for constipation- added lactulose. ascending thoracic aortic aneurysm- Vascular consult: outpt surveillance. Patient is being discharged to rehab facility. Procedures performed: None. Treatment and response: As above. Complications: None. Time Spent with Patient Time attestation: Total time spent providing and/or coordinating discharge services: Discharge coordination time: Greater than 30 minutes Quality: Stroke Does the patient have a stroke diagnosis?: No Physical Exam Vital Signs: Vital Signs: Last Vital Signs Temp 97.9 F 06/01/21 11:43 Pulse 90 06/01/21 11:43 Resp 20 06/01/21 11:43 BP 147/82 H 06/01/21 11:43 Pulse Ox 97 06/01/21 11:43 Oxygen Flow Rate 5 05/25/21 12:48 Body Mass Index 33.6 Gen: mild respiratory distress HEENT: sclera anicteric, moist mucus membranes Lungs: air entry fair , no rales or wheezing. Heart: regular rate and rhythm, 2/6 systolic murmur at base Abd: obese; ventral hernia upper abd; seroma lower abd Ext: trace edema , no cyanosis Skin: warm/well-perfused Neuro: alert and oriented x3, no focal findings Psych: appropriate affect Discharge Plan Discharge Patient Disposition: [facility], [place] Discharge Diagnosis: copd excerebation, acute on chronic chf,ventral hernia,ascending thoracic aortic aneurysm Referrals: [facility] [Outside] - 1 Week Gill Swain MD [Physician] - 1 Week (follow up outpatiently) Danny Lorenzana MD [Primary Care Provider] - 1 Week Danny Espitia MD [Physician] - 1 Week (follow up outpatiently) Alhaji Martins MD [Physician] - 1 Week (follow up outpatiently) Discharge Medications: New acetazolamide 250 mg tablet 250 mg PO DAILY Qty: 30 RF: 0 prednisone 20 mg Tablet 20 mg PO DAILY Qty: 3 RF: 0 Continued albuterol sulfate 90 mcg/actuation HFA aerosol inhaler 2 puff PO DAILY PRN (Reason: for dyspnea) Qty: 18 RF: 3 Myrbetriq 50 mg tablet extended release 24 hr 50 mg PO BID 30 Days Qty: 60 RF: 6 buspirone 7.5 mg tablet 1 tab PO BID RF: 0 oxybutynin chloride 15 mg tablet extended release 24 hr 15 mg PO BID RF: 0 aspirin 81 mg Tablet,Chewable 81 mg PO DAILY RF: 0 Breo Ellipta 200-25 mcg/dose blister with device 1 inh inhalation BEDTIME RF: 0 acetaminophen 325 mg Tablet 650 mg PO Q4H PRN (Reason: Pain) RF: 0 simethicone 80 mg Tablet,Chewable 80 mg PO BEDTIME RF: 0 lactulose 10 gram/15 mL solution 15 ml PO BID PRN (Reason: Constipation) RF: 0 guaifenesin [Mucinex] 600 mg tablet extended release 12hr 600 mg PO BID RF: 0 Spiriva with HandiHaler 18 mcg capsule, w/inhalation device 1 cap inhalation DAILY RF: 0 ipratropium-albuterol 0.5 mg-3 mg(2.5 mg base)/3 mL solution for nebulization 3 ml inhalation Q6H PRN (Reason: Wheezing) RF: 0 diltiazem HCl 120 mg capsule,extended release 12 hr 120 mg PO BID RF: 0 atorvastatin 40 mg tablet 40 mg PO DAILY RF: 0 vilazodone 40 mg tablet 40 mg PO DAILY RF: 0 omeprazole 20 mg capsule,delayed release(DR/EC) 20 mg PO DAILY RF: 0 levothyroxine 175 mcg tablet 175 mcg PO DAILY@0630 RF: 0 dicyclomine 10 mg capsule 10 mg PO TIDWM RF: 0 clonazepam 0.5 mg tablet 0.25 mg PO BEDTIME PRN (Reason: Sleep) RF: 0 furosemide 20 mg tablet 60 mg PO DAILY RF: 0 Discharge Orders: Discharge Order (Routine); Ordered 06/03/21 Ordered By: Jagdish Otero Diet: advance to usual diet Activity on Discharge: As tolerated Stand Alone Forms: Patient Portal Discharge page Care Plan Goals: Patient was admitted to the hospital secondary to COPD exacerbation, CHF exacerbation: Subsequently treated with nebs, steroids, oxygen support and seems to be improving, Also received IV Lasix for CHF exacerbation, has : Seems to be improved. Patient will go home with p.o. steroids and acetazolamide. Continue home Lasix. Follow-up with the outpatient pulmonary and cardiology. Ventral hernia:?abd wall seroma Surg consulted, no intervention required, give stool regimen for constipation- a dded lactulose. ascending thoracic aortic aneurysm- Vascular consult: outpt surveillance. Health Concerns: as above . Plan of Treatment: as above. Assessment: as above. Discharge Date/Time: 06/03/21 11:23
--- NOTE | 2021-06-01 14:13 | MHC.CM.PN ---
medically cleared Patient for dc to home today with services. CM met with Patient at bedside and addressed IMM with her, providing her with the original and placing a copy on the chart. Patient has decided to appeal her dc. CM will move forward with the appeal process and follow for dc planning.
--- NOTE | 2021-06-01 14:45 | HO.PM.IMPN ---
Subjective Subjective Date of Service: 06/01/21 Interval History: chf- sob seems improved Review of Systems Denies any new complaints, wants her family to support while going home Physical Exam Vital Signs: Vital Signs: Last Vital Signs Temp 97.9 F 06/01/21 11:43 Pulse 90 06/01/21 11:43 Resp 20 06/01/21 11:43 BP 147/82 H 06/01/21 11:43 Pulse Ox 97 06/01/21 11:43 Oxygen Flow Rate 5 05/25/21 12:48 Body Mass Index 33.6 sclera anicteric, moist mucus membranes Lungs: air entry improved , no rales or wheezin. Heart: regular rate and rhythm, 2/6 systolic murmur at base Abd: obese; ventral hernia upper abd; seroma lower abd Ext: no edema or cyanosis Skin: warm/well-perfused Neuro: alert and oriented x3, no focal findings Psych: appropriate affect Objective Data Current Medications Generic Name Dose Route Start Last Admin Trade Name Freq PRN Reason Stop Dose Admin Acetazolamide 250 mg 05/28/21 21:00 06/01/21 09:07 Acetazolamide 250 Mg Tablet PO 250 mg BID GERMAN Administration Albuterol/Ipratropium 3 ml 05/25/21 22:30 06/01/21 14:39 Albuterol/Iprat 2.5/0.5mg 3 Ml Ampul.Neb INHALE Not Given RQ6H WHILE AWAKE GERMAN Albuterol/Ipratropium 3 ml 05/25/21 22:13 Albuterol/Iprat 2.5/0.5mg 3 Ml Ampul.Neb INHALE RQ6H PRN sob / wheezing Aspirin 81 mg 05/26/21 09:00 06/01/21 09:08 Aspirin 81 Mg Tab.Chew PO 81 mg DAILY GERAMN Administration Atorvastatin Calcium 40 mg 05/26/21 09:00 06/01/21 09:08 Atorvastatin Calcium 40 Mg Tablet PO 40 mg DAILY [facility]ERMAN Administration Buspirone HCl 7.5 mg 05/25/21 21:36 06/01/21 09:08 Buspirone Hcl 5 Mg Tablet PO 7.5 mg BID GERMAN Administration Clonazepam 0.25 mg 05/31/21 21:50 05/31/21 22:22 Clonazepam 0.5 Mg Tablet PO 0.25 mg BEDTIME PRN Administration Anxiety Dicyclomine HCl 10 mg 05/26/21 08:00 06/01/21 13:35 Dicyclomine Hcl 10 Mg Capsule PO 10 mg TIDWM [facility]ER[facility] Administration Diltiazem HCl 180 mg 05/28/21 21:00 06/01/21 09:08 Diltiazem Hcl Cd 180 Mg Cap.Er.24h PO 180 mg BID GERMAN Administration Protocol Docusate Sodium 100 mg 05/27/21 13:45 06/01/21 09:07 Docusate Sodium 100 Mg Capsule PO 100 mg BID GERMAN Administration Enoxaparin Sodium 40 mg 05/25/21 23:00 05/31/21 21:40 Enoxaparin Sodium 40 Mg/0.4 Ml Syringe SUBCUT 40 mg Q24H GERMAN Administration Furosemide 40 mg 05/30/21 18:00 06/01/21 09:07 Furosemide 40 Mg Tablet PO 40 mg BID@0900,1800 COUNTS INCLUDE 234 BEDS AT THE [facility] Administration Protocol Lactulose 30 gm 05/28/21 15:00 06/01/21 09:28 Lactulose 20 Gm/30 Ml Solution PO Not Given TID COUNTS INCLUDE 234 BEDS AT THE [facility] Levothyroxine Sodium 175 mcg 05/26/21 06:30 06/01/21 05:45 Levothyroxine Sodium 175 Mcg Tablet PO 175 mcg DAILY@0630 COUNTS INCLUDE 234 BEDS AT THE [facility] Administration Mirabegron 50 mg 06/01/21 09:00 06/01/21 09:08 Mirabegron 50 Mg Tab.Er.24h PO 50 mg BID COUNTS INCLUDE 234 BEDS AT THE [facility] Administration Nicotine 21 mg 05/26/21 09:00 06/01/21 09:09 Nicotine 21 Mg Patch.Td24 TRANSDERMA 21 mg DAILY COUNTS INCLUDE 234 BEDS AT THE [facility] Administration Omeprazole 20 mg 05/26/21 06:30 06/01/21 05:45 Omeprazole 20 Mg Capsule.Dr PO 20 mg DAILY@0630 COUNTS INCLUDE 234 BEDS AT THE [facility] Administration Pharmacy Consult 1 each 05/25/21 13:00 Consult Rx Perform Med Rec MISCELLANE ONCE PRN Consult order Prednisone 20 mg 05/29/21 09:25 06/01/21 09:08 Prednisone 20 Mg Tablet PO 20 mg DAILY COUNTS INCLUDE 234 BEDS AT THE [facility] Administration Tiotropium [place] 1 puff 05/29/21 08:00 06/01/21 07:33 Tiotropium [place] 18 Mcg Cap.W.Dev INHALE Not Given RDAILY COUNTS INCLUDE 234 BEDS AT THE [facility] Vilazodone HCl 40 mg 05/26/21 09:00 06/01/21 09:07 Vilazodone Hcl 40 Mg Tablet PO 40 mg DAILY [facility]ERMAN Administration Labs CBC & Chem 7: 05/29/21 05:23 05/30/21 05:29 Assessment and Plan (1) Acute on chronic diastolic (congestive) heart failure: Status: Acute Assessment and Plan: 71yo F with end-stage COPD with chronic hypoxic/hypercapneic respiratory failure, HFpEF, aortic stenosis presented with lethargy + dyspnea, admitted to ICU for acute hypercapneic respiratory failure requiring BiPAP stepped down to [facility] 05/26/21 1. COPD exacerbation- changed solumedrol to po prednisone on 05/29,, standing/prn bronchodilators.? continue tiotropium 2. acute/chronic HFpEF- Chang[place] Lasix to PO, starting today, monitor I+O, BNP, BMP, Mg. Negative 8.4 L thus far this admission.? Cardiology following. Change 3. metabolic alkalosis- continue acetazolamide 4. DHEERAJ--doesn't tolerate CPAP, breathing exercixse, home O2 5. - Cardiology consulted, no invasive intervention required at this time; continue to diurese 6. tobacco abuse- NRT 7. ventral hernia ?abd wall seroma - Surg consulted, no intervention required, give stool regimen for constipation- added lactulose 8. ascending thoracic aortic aneurysm- Vascular consult: outpt surveillance 9. atrial tachycardia- continue diltiazem 10. CAD- continue atorvastatin +ASA 11. hypothyroidism- continue LT4 12.IBS- continue dicyclomine 13. mood disorder- continue vilazodone, buspirone Patient was discharged but patient appealed the discharge. ?VTE ppx - [facility] Quality Stroke Does the patient have a stroke diagnosis?: No VTE Prior VTE?: No VTE Risk Level:: Medical - moderate - high VTE Device Contraindication: N/A - Device Ordered VTE Drug Contraindication: N/A - Med Ordered
[2021-06-01] MEDS: Albuterol/Iprat 2.5/0.5MG 3 ML AMPUL.NEB INHALE (21:16)
[2021-06-01] MEDS: Enoxaparin Sodium 40 MG/0.4 ML SYRINGE SUBCUT (22:43)
[2021-06-01] MEDS: clonazePAM 0.5 MG TABLET 0.25 MG PO (22:59)
[2021-06-02] VITALS (11 sets, daily range): BP systolic 117–155; BP diastolic 63–89; PULSE 62–115; RESP 16–22; TEMP 36.2–36.8; O2SAT 91–97; BMI 33.3; BMI 34.3
[2021-06-02] MEDS: Omeprazole 20 MG CAPSULE.DR PO (06:09)
[2021-06-02] MEDS: Levothyroxine Sodium 175 MCG TABLET PO (06:09)
[2021-06-02] MEDS: dilTIAZem HCL CD 180 MG CAP.ER.24H PO ×2 (09:17→20:50)
[2021-06-02] MEDS: Mirabegron 50 MG TAB.ER.24H PO ×2 (09:17→20:50)
[2021-06-02] MEDS: Atorvastatin Calcium 40 MG TABLET PO (09:17)
[2021-06-02] MEDS: Docusate Sodium 100 MG CAPSULE PO ×2 (09:18→20:50)
[2021-06-02] MEDS: Aspirin 81 MG TAB.CHEW PO (09:18)
[2021-06-02] MEDS: Dicyclomine HCl 10 MG CAPSULE PO ×3 (09:18→18:00)
[2021-06-02] MEDS: Vilazodone HCL 40 MG TABLET PO (09:18)
[2021-06-02] MEDS: acetaZOLAMIDE 250 MG TABLET PO ×2 (09:18→20:50)
[2021-06-02] MEDS: predniSONE 20 MG TABLET PO (09:18)
[2021-06-02] MEDS: Nicotine 21 MG PATCH.TD24 TRANSDERMA (09:18)
[2021-06-02] MEDS: busPIRone HCl 5 MG TABLET 7.5 MG PO ×2 (09:19→20:50)
[2021-06-02] MEDS: Lactulose 20 GM/30 ML SOLUTION 30 GM PO (09:20)
[2021-06-02] MEDS: Furosemide 40 MG TABLET PO ×2 (09:25→18:00)
--- NOTE | 2021-06-02 10:05 | P.PNCA_ITS ---
Subjective Subjective Date of Service: 06/02/21 Interval history: No new complaints. On Bipap. Review of Systems Review of Systems Yes all other systems are reviewed and are negative Cardiovascular: Reports as per HPI, Reports no additional cardiovascular complaints, Denies acrocyanosis, Denies cool extremities, Denies painful fingertips, Denies chest pain, Denies chest pain at rest, Denies diaphoresis, Denies syncope, Denies irregular heart rhythm, Denies claudication, Denies leg edema, Denies lightheadedness, Denies palpitations and Reports dyspnea Respiratory: Reports dyspnea Denies syncope Endocrine: Denies palpitations Physical Exam Vital Signs: Last Vital Signs Temp 98.2 F 06/02/21 07:39 Pulse 85 06/02/21 09:17 Resp 18 06/02/21 07:39 BP 136/74 06/02/21 09:17 Pulse Ox 91 L 06/02/21 07:39 Oxygen Flow Rate 5 05/25/21 12:48 Body Mass Index 33.3 Const General: cooperative and no acute distress [facility] Other: Unremarkable Neck Neck: Yes normal visual inspection Chest Chest palpation & inspection: normal inspection of the chest Resp Auscultation: clear to auscultation bilaterally, no crackles and no wheezes Cardio Jugular venous distension: no JVD Palpation: normal PMI Heart sounds: S1 normal heart sound present, S2 normal heart sound present, no gallops, Murmur heart sound present (3/6 CHARISSA aortic area) and no rubs GI Palpation (GI): Soft to palpation Back/Spine/Pelvis Other: unremarkable Skin General skin exam: no rashes or lesions noted Neuro Cranial nerves: Yes Other cranial nerve findings present Extrem General: Yes no clubbing, cyanosis or edema Psych Mental Status: other Results Labs and Meds Result diagrams: 05/29/21 05:23 05/30/21 05:29 Progress Note: A&P Assessment and plan (1) Acute on chronic diastolic (congestive) heart failure: Status: Acute (2) Nonrheumatic aortic (valve) stenosis: Status: Acute (3) Acute on chronic respiratory failure with hypoxia and hypercapnia: Status: Acute Assessment and Plan: Pertinent data reviewed. In the recent echocardiogram, LVEF was 60-65%. With regard to the aortic valve, the mean gradient was 25 mm with a peak of 43 mm Hg. Calculated valve area was 1.18 sq cm. Dimensionless index was 0.38. Based on these parameters, this is still moderate aortic stenosis. EKG this admission showed sinus rhythm, 90/Min; left anterior fascicular block and right bundle- branch block, PACs. On telemetry, there seem to be frequent PACs. CT chest findings reviewed as well. Overall, her symptoms are primarily respiratory in nature. The aortic stenosis is an additional problem but based on the hemodynamic parameters, does not appear to be the primary issue. She could have some degree of left-sided diastolic +/-right heart failure. Empiric diuretics. With regard to any intervention of the valve, not indicated at this time. FU in office. Fall Risk Details Current Medications: Current Medications Generic Name Dose Route Start Last Admin Trade Name Freq PRN Reason Stop Dose Admin Acetazolamide 250 mg 05/28/21 21:00 06/02/21 09:18 Acetazolamide 250 Mg Tablet PO 250 mg BID GERMAN Administration Aspirin 81 mg 05/26/21 09:00 06/02/21 09:18 Aspirin 81 Mg Tab.Chew PO 81 mg DAILY GERMAN Administration Atorvastatin Calcium 40 mg 05/26/21 09:00 06/02/21 09:17 Atorvastatin Calcium 40 Mg Tablet PO 40 mg DAILY GERMAN Administration Buspirone HCl 7.5 mg 05/25/21 21:36 06/02/21 09:19 Buspirone Hcl 5 Mg Tablet PO 7.5 mg BID GERMAN Administration Clonazepam 0.25 mg 05/31/21 21:50 06/01/21 22:59 Clonazepam 0.5 Mg Tablet PO 0.25 mg BEDTIME PRN Administration Anxiety Dicyclomine HCl 10 mg 05/26/21 08:00 06/02/21 09:18 Dicyclomine Hcl 10 Mg Capsule PO 10 mg TIDWM GERMAN Administration Diltiazem HCl 180 mg 05/28/21 21:00 06/02/21 09:17 Diltiazem Hcl Cd 180 Mg Cap.Er.24h PO 180 mg BID GERMAN Administration Protocol Docusate Sodium 100 mg 05/27/21 13:45 06/02/21 09:18 Docusate Sodium 100 Mg Capsule PO 100 mg BID GERMAN Administration Enoxaparin Sodium 40 mg 05/25/21 23:00 06/01/21 22:43 Enoxaparin Sodium 40 Mg/0.4 Ml Syringe SUBCUT 40 mg Q24H GERMAN Administration Furosemide 40 mg 05/30/21 18:00 06/02/21 09:25 Furosemide 40 Mg Tablet PO 40 mg BID@0900,1800 GERMAN Administration Protocol Lactulose 30 gm 06/02/21 09:00 06/02/21 09:20 Lactulose 20 Gm/30 Ml Solution PO 30 gm DAILY GERMAN Administration Levothyroxine Sodium 175 mcg 05/26/21 06:30 06/02/21 06:09 Levothyroxine Sodium 175 Mcg Tablet PO 175 mcg DAILY@0630 GERMAN Administration Mirabegron 50 mg 06/01/21 09:00 06/02/21 09:17 Mirabegron 50 Mg Tab.Er.24h PO 50 mg BID GERMAN Administration Nicotine 21 mg 05/26/21 09:00 06/02/21 09:18 Nicotine 21 Mg Patch.Td24 TRANSDERMA 21 mg DAILY GERMAN Administration Omeprazole 20 mg 05/26/21 06:30 06/02/21 06:09 Omeprazole 20 Mg Capsule.Dr PO 20 mg DAILY@0630 GERMAN Administration Pharmacy Consult 1 each 05/25/21 13:00 Consult Rx Perform Med Rec MISCELLANE ONCE PRN Consult order Prednisone 20 mg 05/29/21 09:25 06/02/21 09:18 Prednisone 20 Mg Tablet PO 20 mg DAILY GERMAN Administration Tiotropium [place] 1 puff 05/29/21 08:00 06/02/21 08:14 Tiotropium [place] 18 Mcg Cap.W.Dev INHALE 1 puff RDAILY GERMAN Administration Vilazodone HCl 40 mg 05/26/21 09:00 06/02/21 09:18 Vilazodone Hcl 40 Mg Tablet PO 40 mg DAILY GERMAN Administration Time Spent With Patient Time: Total time spent is greater than 50% in coordination of care (as documented) at patient's floor/unit and/or counseling patient: Time with patient: less than 15 minutes Progress Note: Quality Stroke Does the patient have a stroke diagnosis?: No Procedures Date of Service Date of Service: 06/02/21
--- NOTE | 2021-06-02 14:33 | P.PNIM_ITS ---
Subjective Subjective Date of Service: 06/02/21 Interval History: Feels tired otherwise offers no acute complaints, appealed her discharge yesterday. Review of Systems General no headache, no fever chills. CVS no chest pain, no palpitation. Respiratory no cough, no sob. Gastrointestinal no nausea ,no vomiting, no abdominal pain Physical Exam Vital Signs: Vital Signs: Last Vital Signs Temp 97.2 F 06/02/21 11:05 Pulse 115 H 06/02/21 11:57 Resp 18 06/02/21 11:05 BP 155/81 H 06/02/21 11:57 Pulse Ox 96 06/02/21 11:57 Oxygen Flow Rate 5 05/25/21 12:48 Body Mass Index 33.3 Gen: Resting comfortably no respiratory distress Neck: supple, no JVD Lungs: No distress, clear to auscultation, diminished bilaterally Heart: regular rate and rhythm, 2/6 systolic murmur at base Abd: obese, ventral hernia upper abd, seroma lower abd, bowel sounds audible Ext: Trace edema bilaterally Skin: warm/well-perfused Neuro: alert and oriented x3, no focal findings Psych: appropriate affect Objective Data Current Medications Generic Name Dose Route Start Last Admin Trade Name Freq PRN Reason Stop Dose Admin Acetazolamide 250 mg 05/28/21 21:00 06/02/21 09:18 Acetazolamide 250 Mg Tablet PO 250 mg BID GERMAN Administration Aspirin 81 mg 05/26/21 09:00 06/02/21 09:18 Aspirin 81 Mg Tab.Chew PO 81 mg DAILY GERMAN Administration Atorvastatin Calcium 40 mg 05/26/21 09:00 06/02/21 09:17 Atorvastatin Calcium 40 Mg Tablet PO 40 mg DAILY GERMAN Administration Buspirone HCl 7.5 mg 05/25/21 21:36 06/02/21 09:19 Buspirone Hcl 5 Mg Tablet PO 7.5 mg BID GERMAN Administration Clonazepam 0.25 mg 05/31/21 21:50 06/01/21 22:59 Clonazepam 0.5 Mg Tablet PO 0.25 mg BEDTIME PRN Administration Anxiety Dicyclomine HCl 10 mg 05/26/21 08:00 06/02/21 11:59 Dicyclomine Hcl 10 Mg Capsule PO 10 mg TIDWM GERMAN Administration Diltiazem HCl 180 mg 05/28/21 21:00 06/02/21 09:17 Diltiazem Hcl Cd 180 Mg Cap.Er.24h PO 180 mg BID GERMAN Administration Protocol Docusate Sodium 100 mg 05/27/21 13:45 06/02/21 09:18 Docusate Sodium 100 Mg Capsule PO 100 mg BID GERMAN Administration Enoxaparin Sodium 40 mg 05/25/21 23:00 06/01/21 22:43 Enoxaparin Sodium 40 Mg/0.4 Ml Syringe SUBCUT 40 mg Q24H GERMAN Administration Furosemide 40 mg 05/30/21 18:00 06/02/21 09:25 Furosemide 40 Mg Tablet PO 40 mg BID@0900,1800 GERMAN Administration Protocol Lactulose 30 gm 06/02/21 09:00 06/02/21 09:20 Lactulose 20 Gm/30 Ml Solution PO 30 gm DAILY GERMAN Administration Levothyroxine Sodium 175 mcg 05/26/21 06:30 06/02/21 06:09 Levothyroxine Sodium 175 Mcg Tablet PO 175 mcg DAILY@0630 GERMAN Administration Mirabegron 50 mg 06/01/21 09:00 06/02/21 09:17 Mirabegron 50 Mg Tab.Er.24h PO 50 mg BID GERMAN Administration Nicotine 21 mg 05/26/21 09:00 06/02/21 09:18 Nicotine 21 Mg Patch.Td24 TRANSDERMA 21 mg DAILY GERMAN Administration Omeprazole 20 mg 05/26/21 06:30 06/02/21 06:09 Omeprazole 20 Mg Capsule.Dr PO 20 mg DAILY@0630 COUNT INCLUDES THE [facility] Administration Pharmacy Consult 1 each 05/25/21 13:00 Consult Rx Perform Med Rec MISCELLANE ONCE PRN Consult order Prednisone 20 mg 05/29/21 09:25 06/02/21 09:18 Prednisone 20 Mg Tablet PO 20 mg DAILY GERMAN Administration Tiotropium [place] 1 puff 05/29/21 08:00 06/02/21 08:14 Tiotropium [place] 18 Mcg Cap.W.Dev INHALE 1 puff RDAILY GERMAN Administration Vilazodone HCl 40 mg 05/26/21 09:00 06/02/21 09:18 Vilazodone Hcl 40 Mg Tablet PO 40 mg DAILY GERMAN Administration Labs CBC & Chem 7: 05/29/21 05:23 05/30/21 05:29 Assessment and Plan (1) Acute on chronic diastolic (congestive) heart failure: Status: Acute Assessment and Plan: 71yo F with end-stage COPD with chronic hypoxic/hypercapneic respiratory failure, HFpEF, aortic stenosis presented with lethargy + dyspnea, admitted to ICU for acute hypercapneic respiratory failure requiring BiPAP stepped down to C 05/26/21 1. COPD exacerbation- resolved continue prednisone, standing/prn bronchodilators, continue tiotropium, no acute symptoms this morning. 2. acute/chronic HFpEF- no worsening shortness of breath or leg edema, continue Lasix 40 b.i.d. and add potassium 3. metabolic alkalosis- continue acetazolamide 4. DHEERAJ--doesn't tolerate CPAP, rec breathing exercixse,and home O2 5. - Cardiology consulted, no invasive intervention required at this time; continue to diureses. 6. tobacco abuse- NRT 7. ventral hernia and Abd wall seroma - Surg consulted, no intervention required, continue stool softeners to avoid constipation 8. ascending thoracic aortic aneurysm- Vascular consult: outpt surveillance recommended 9. atrial tachycardia- continue diltiazem, heart rate stable 10. CAD- continue atorvastatin +ASA 11. hypothyroidism- continue LT4 12.IBS- continue dicyclomine 13. mood disorder- continue vilazodone, buspirone Patient was discharged but patient appealed the discharge. ?VTE ppx - LMWH Quality Stroke Does the patient have a stroke diagnosis?: No VTE Prior VTE?: No VTE Risk Level:: Medical - moderate - high VTE Device Contraindication: N/A - Device Ordered VTE Drug Contraindication: N/A - Med Ordered
--- NOTE | 2021-06-02 14:44 | MHC.CM.PN ---
Patient appealed her dc and lost the appeal. Per Patient's request, CM referred Patient to area SNFs for STR and Patient has been accepted at [facility]. Patient will dc to [facility] tomorrow at 11AM, via [facility]. Patient is aware of and in agreement with the dc plan, as is Daughter/HCP/Suzan @ [phone].Last IMM addressed with Patient yesterday.
[2021-06-02] MEDS: Potassium Chloride ER 20 MEQ TAB.ER.PRT PO (15:18)
[2021-06-02 18:46] LABS: COVID-19 Test Negative (Negative); IDNOW Serial# 9DD0AD1C
[2021-06-02] MEDS: clonazePAM 0.5 MG TABLET 0.25 MG PO (20:50)
[2021-06-03] MEDS: Enoxaparin Sodium 40 MG/0.4 ML SYRINGE SUBCUT (00:07)
[2021-06-03 03:37] VITALS: BP 166/90; PULSE 56; RESP 18; TEMP 36.2; O2SAT 95
[2021-06-03 06:00] VITALS: BMI 34.5
[2021-06-03] MEDS: Omeprazole 20 MG CAPSULE.DR PO (06:05)
[2021-06-03] MEDS: Levothyroxine Sodium 175 MCG TABLET PO (06:05)
--- NOTE | 2021-06-03 07:55 | PM.DS ---
DS: Providers Provider Date of Service: 06/03/21 Date of admission: 05/25/21 19:09 Primary care physician: Danny Lorenzana MD Consults: 05/27/21 08:14 Consult to Cardiology Routine Consulting Provider: [facility] Reason for consultation: mod-sev AoS -> CHF? Consult to General Surgery Routine Consulting Provider: [facility] Reason for consultation: golf-ball sized hard, mobile mass caudal to lg ventral hernia Consult to Vascular Surgery Routine Consulting Provider: Alhaji Martins Reason for consultation: thoracic aneurysm 4.5 cm 05/27/21 11:24 Consult to Pulmonology Routine Consulting Provider: [facility] Reason for consultation: obesity /DHEERAJ< needs CPAP DS: Diagnosis Discharge Diagnosis (1) Acute on chronic diastolic (congestive) heart failure: Status: Acute DS: Medications Discharge Medications Home Medications: Home Medications Medication Instructions Recorded Confirmed atorvastatin 40 mg tablet 40 mg PO DAILY tab 08/19/20 05/25/21 diltiazem HCl 120 mg 120 mg PO BID cap 08/19/20 05/25/21 capsule,extended release 12 hr guaifenesin 600 mg tablet, 600 mg PO BID 08/30/20 05/25/21 extended release 12 hr (Mucinex) ipratropium 0.5 mg-albuterol 3 mg 3 ml INHALATION Q6H PRN 08/30/20 05/25/21 (2.5 mg base)/3 mL nebulization soln tiotropium bromide 18 mcg capsule 1 cap INHALATION DAILY 08/30/20 05/25/21 with inhalation device (Spiriva with HandiHaler) clonazepam 0.5 mg tablet 0.25 mg PO BEDTIME PRN tab 10/04/20 05/25/21 dicyclomine 10 mg capsule 10 mg PO TIDWM cap 10/04/20 05/25/21 levothyroxine 175 mcg tablet 175 mcg PO DAILY@0630 tab 10/04/20 05/25/21 omeprazole 20 mg capsule,delayed 20 mg PO DAILY cap 10/04/20 05/25/21 release vilazodone 40 mg tablet 40 mg PO DAILY tab 10/04/20 05/25/21 lactulose 10 gram/15 mL oral 15 ml PO BID PRN 10/25/20 05/25/21 solution furosemide 20 mg tablet 60 mg PO DAILY tab 11/30/20 05/25/21 cyanocobalamin (vitamin B-12) 1,000 mcg IM Q30D 03/31/21 05/25/21 1,000 mcg/mL injection solution gabapentin 300 mg capsule 300 mg PO BEDTIME 03/31/21 05/25/21 melatonin 5 mg tablet 5 mg PO BEDTIME PRN 03/31/21 05/25/21 acetaminophen 325 mg tablet 650 mg PO Q4H PRN 05/25/21 05/25/21 aspirin 81 mg chewable tablet 81 mg PO DAILY 05/25/21 05/25/21 buspirone 7.5 mg tablet 1 tab PO BID 05/25/21 05/25/21 fluticasone furoate 200 1 inh INHALATION BEDTIME 05/25/21 05/25/21 mcg-vilanterol 25 mcg/dose inhalation powder (Breo Ellipta) oxybutynin chloride 15 mg 15 mg PO BID 05/25/21 05/25/21 tablet,extended release 24 hr simethicone 80 mg chewable tablet 80 mg PO BEDTIME 05/25/21 05/25/21 Previous Rx's Medication Instructions Recorded albuterol sulfate 90 mcg/actuation 2 puff PO DAILY PRN #18 g 09/22/20 aerosol inhaler mirabegron 50 mg tablet,extended 50 mg PO BID 30 Days #60 tab 12/03/20 release 24 hr (Myrbetriq) acetazolamide 250 mg tablet 250 mg PO DAILY #30 tab 06/01/21 prednisone 20 mg tablet 20 mg PO DAILY #3 tab 06/01/21 DS: Summary Hospital Course Hospital Course: 71yo F with end-stage COPD with chronic hypoxic/hypercapneic respiratory failure, HFpEF, aortic stenosis presented with lethargy + dyspnea, admitted to ICU for acute hypercapneic respiratory failure requiring BiPAP. Hospital course: Patient was admitted to the hospital secondary to COPD exacerbation, CHF exacerbation: Subsequently treated with nebs, steroids, oxygen support and seems to be improving, Also received IV Lasix for CHF exacerbation, has : Seems to be improved. Patient was seen by Pulmonary and Cardiology during this admission: Recommended to continue nebs, steroid and oxygen, acetazolamide also added continue p.o. steroids and acetazolamide as prescribed. Continue home Lasix. Follow-up with the outpatient pulmonary and cardiology. Ventral hernia:?abd wall seroma Surg consulted, no intervention required, give stool regimen for constipation- added lactulose. ascending thoracic aortic aneurysm- Vascular consult: outpt surveillance. Patient is being discharged to rehab facility. Procedures performed: None. Treatment and response: As above. Complications: None. Time Spent with Patient Time attestation: Total time spent providing and/or coordinating discharge services: Discharge coordination time: Greater than 30 minutes Quality: Stroke Does the patient have a stroke diagnosis?: No Physical Exam Vital Signs: Vital Signs: Last Vital Signs Temp 97.1 F 06/03/21 03:37 Pulse 56 06/03/21 03:37 Resp 18 06/03/21 03:37 BP 166/90 H 06/03/21 03:37 Pulse Ox 95 06/03/21 03:37 Oxygen Flow Rate 5 05/25/21 12:48 Body Mass Index 34.5 Gen: No acute distress HEENT: sclera anicteric, moist mucus membranes Neck: supple Lungs: Clear to auscultation, no wheeze, no rhonchi Heart: regular rate and rhythm, 2/6 systolic murmur at base Abd: obese; ventral hernia upper abd; seroma lower abd Ext: Trace edema bilaterally Skin: warm/well-perfused Neuro: alert and oriented x3, no focal findings Psych: appropriate affect DS: Data Data Completed and Pending Labs on day of discharge: Laboratory Results - last 24 hr 06/02/21 18:30 COVID-19 ([facility]) Negative COVID-19 Clin Com See Note Discharge Plan Discharge Patient Disposition: Xfer SNF Discharge Diagnosis: copd excerebation, acute on chronic chf,ventral hernia,ascending thoracic aortic aneurysm Referrals: [facility] [Outside] - 1 Week Gill Swain MD [Physician] - 1 Week (follow up outpatiently) Danny Lorenzana MD [Primary Care Provider] - 1 Week Danny Espitia MD [Physician] - 1 Week (follow up outpatiently) Alhaji Martins MD [Physician] - 1 Week (follow up outpatiently) Discharge Medications: New acetazolamide 250 mg tablet 250 mg PO DAILY Qty: 30 RF: 0 prednisone 20 mg Tablet 20 mg PO DAILY Qty: 3 RF: 0 Continued albuterol sulfate 90 mcg/actuation HFA aerosol inhaler 2 puff PO DAILY PRN (Reason: for dyspnea) Qty: 18 RF: 3 Myrbetriq 50 mg tablet extended release 24 hr 50 mg PO BID 30 Days Qty: 60 RF: 6 buspirone 7.5 mg tablet 1 tab PO BID RF: 0 oxybutynin chloride 15 mg tablet extended release 24 hr 15 mg PO BID RF: 0 aspirin 81 mg Tablet,Chewable 81 mg PO DAILY RF: 0 Breo Ellipta 200-25 mcg/dose blister with device 1 inh inhalation BEDTIME RF: 0 acetaminophen 325 mg Tablet 650 mg PO Q4H PRN (Reason: Pain) RF: 0 simethicone 80 mg Tablet,Chewable 80 mg PO BEDTIME RF: 0 lactulose 10 gram/15 mL solution 15 ml PO BID PRN (Reason: Constipation) RF: 0 guaifenesin [Mucinex] 600 mg tablet extended release 12hr 600 mg PO BID RF: 0 Spiriva with HandiHaler 18 mcg capsule, w/inhalation device 1 cap inhalation DAILY RF: 0 ipratropium-albuterol 0.5 mg-3 mg(2.5 mg base)/3 mL solution for nebulization 3 ml inhalation Q6H PRN (Reason: Wheezing) RF: 0 diltiazem HCl 120 mg capsule,extended release 12 hr 120 mg PO BID RF: 0 atorvastatin 40 mg tablet 40 mg PO DAILY RF: 0 vilazodone 40 mg tablet 40 mg PO DAILY RF: 0 omeprazole 20 mg capsule,delayed release(DR/EC) 20 mg PO DAILY RF: 0 levothyroxine 175 mcg tablet 175 mcg PO DAILY@0630 RF: 0 dicyclomine 10 mg capsule 10 mg PO TIDWM RF: 0 clonazepam 0.5 mg tablet 0.25 mg PO BEDTIME PRN (Reason: Sleep) RF: 0 furosemide 20 mg tablet 60 mg PO DAILY RF: 0 Discharge Orders: Discharge Order (Routine); Ordered 06/03/21 Ordered By: Jagdish Otero Diet: advance to usual diet Activity on Discharge: As tolerated Stand Alone Forms: Patient Portal Discharge page Care Plan Goals: Patient was admitted to the hospital secondary to COPD exacerbation, CHF exacerbation: Subsequently treated with nebs, steroids, oxygen support and seems to be improving, Also received IV Lasix for CHF exacerbation, has : Seems to be improved. Patient will go home with p.o. steroids and acetazolamide. Continue home Lasix. Follow-up with the outpatient pulmonary and cardiology. Ventral hernia:?abd wall seroma Surg consulted, no intervention required, give stool regimen for constipation- added lactulose. ascending thoracic aortic aneurysm- Vascular consult: outpt surveillance. Health Concerns: as above . Plan of Treatment: as above. Assessment: as above.
[2021-06-03 07:59] VITALS: BP 135/85; PULSE 76; RESP 20; TEMP 36.9; O2SAT 96
[2021-06-03] MEDS: Aspirin 81 MG TAB.CHEW PO (09:36)
[2021-06-03] MEDS: Mirabegron 50 MG TAB.ER.24H PO (09:36)
[2021-06-03] MEDS: Vilazodone HCL 40 MG TABLET PO (09:36)
[2021-06-03] MEDS: acetaZOLAMIDE 250 MG TABLET PO (09:36)
[2021-06-03] MEDS: Dicyclomine HCl 10 MG CAPSULE PO (09:36)
[2021-06-03] MEDS: Potassium Chloride ER 20 MEQ TAB.ER.PRT PO (09:36)
[2021-06-03] MEDS: predniSONE 20 MG TABLET PO (09:36)
[2021-06-03] MEDS: Atorvastatin Calcium 40 MG TABLET PO (09:36)
[2021-06-03] MEDS: Furosemide 40 MG TABLET PO (09:36)
[2021-06-03] MEDS: Docusate Sodium 100 MG CAPSULE PO (09:36)
[2021-06-03] MEDS: busPIRone HCl 5 MG TABLET 7.5 MG PO (09:37)
[2021-06-03] MEDS: Nicotine 21 MG PATCH.TD24 TRANSDERMA (09:37)
[2021-06-03] MEDS: Lactulose 20 GM/30 ML SOLUTION 30 GM PO (09:37)
[2021-06-03 09:38] VITALS: BP 135/85; PULSE 102
[2021-06-03] MEDS: dilTIAZem HCL CD 180 MG CAP.ER.24H PO (09:38)
== END 2021-06-03 11:23 | disposition skilled nursing facility (03) | DRG 193 ==
LOC: HO.ED 17:53 → HO.ICU 19:29 → HO.IMC 05-27 14:30
PROVIDERS: Anesthesiology; Family Medicine; Internal Medicine; Physician Assistant; Admitting Provider Physician Assistant Medical; Emergency Provider Emergency Medicine; PCP Internal Medicine; Visit Provider Hospitalist
DX: J18.9 Pneumonia, unspecified organism (principal); G93.41 Metabolic encephalopathy; J96.22 Acute and chronic respiratory failure with hypercapnia; J96.21 Acute and chronic respiratory failure with hypoxia; I50.33 Acute on chronic diastolic (congestive) heart failure; J44.0 Chronic obstructive pulmonary disease with (acute) lower respiratory infection; J44.1 Chronic obstructive pulmonary disease with (acute) exacerbation; E87.3 Alkalosis; I47.1 Supraventricular tachycardia; L76.34 Postprocedural seroma of skin and subcutaneous tissue following other procedure; K43.2 Incisional hernia without obstruction or gangrene; Z20.822 Contact with and (suspected) exposure to COVID-19; F17.210 Nicotine dependence, cigarettes, uncomplicated; Z71.6 Tobacco abuse counseling; Z99.81 Dependence on supplemental oxygen; E66.9 Obesity, unspecified; I35.0 Nonrheumatic aortic (valve) stenosis; Z68.34 Body mass index [BMI] 34.0-34.9, adult; G47.33 Obstructive sleep apnea (adult) (pediatric); I25.10 Atherosclerotic heart disease of native coronary artery without angina pectoris; E03.9 Hypothyroidism, unspecified; I71.2 Thoracic aortic aneurysm, without rupture; Z99.89 Dependence on other enabling machines and devices; Z88.5 Allergy status to narcotic agent; F39 Unspecified mood [affective] disorder; K58.1 Irritable bowel syndrome with constipation; Z79.52 Long term (current) use of systemic steroids; Z79.82 Long term (current) use of aspirin; Z79.890 Hormone replacement therapy; Z79.899 Other long term (current) drug therapy
CPT/HCPCS: 0241U; 36415; 70450; 71045; 71250; 80048; 80053; 80076; 80307; 81003; 82803; 83605; 83735; 83880; 84100; 84145; 84484; 85025; 85027; 85379; 86140; 87040; 87633; 87635; 93005; 93970; 94640; 94660; 96365; 96367; 96375; 97110; 97116; 97162; 99285; 99291; J0456; J0696; J1650; J1940; J2920; J2930

== ENCOUNTER 2021-08-21 20:17 | Inpatient (IN) | payer MEDICARE, MEDICAID, SELFPAY ==
--- NOTE | ~2021-08-21 | XR_ITS ---
EXAMINATION: XR CLAVICLE, LEFT CLINICAL INFORMATION: Status post fall COMPARISON: Prior studies including 05/25/2021 CT scan TECHNIQUE: Two views of the left clavicle. FINDINGS: Chronic fracture of the mid left clavicle is again seen with inferior displacement of the lateral component. Bone is well-corticated consistent with is chronic fracture which is seen in retrospect on the prior CT scan as well. Degenerative changes in the left shoulder. I do not appreciate any acute fracture or dislocation. XR/XR clavicle LT IMPRESSION: Chronic deformity to the mid left clavicle consistent with an old healed fracture as seen on prior studies.
--- NOTE | ~2021-08-21 | CT_ITS ---
EXAMINATION: CT HEAD WITHOUT CONTRAST CLINICAL INFORMATION: Altered mental status. Recent CVA. COMPARISON: 08/21/2021 TECHNIQUE: Contiguous axial imaging was performed from the skull base to vertex without intravenous contrast. This CT examination was performed using dose optimization techniques as appropriate, variously including the following: * Automated exposure control * Adjustment of mA and/or kV according to patient size (this includes techniques or standardized protocols for targeted exams where dose is matched to indication/reason for exam; i.e. extremities or head) Use of iterative reconstruction technique DLP: 716 mGy-cm. FINDINGS: Loss of james-white matter differentiation involving the right parietal lobe is again noted, consistent with the area of infarct. No hemorrhagic conversion. There are no new areas of loss of james to white matter differentiation. No abnormal mass effect or midline shift is seen. No extra-axial fluid collections are identified. No hydrocephalus. No significant volume loss. The osseous structures and soft tissues are normal. The mastoid air cells and visualized portions of the paranasal sinuses are well aerated. CT/CT head/brain wo con IMPRESSION: Redemonstration of the right parietal lobe infarct. No hemorrhagic conversion. No new abnormality.
--- NOTE | ~2021-08-21 | CT_ITS ---
EXAMINATION: CT HEAD WITHOUT CONTRAST CT CERVICAL SPINE WITHOUT CONTRAST CLINICAL INFORMATION: Status post fall. COMPARISON: CT head dated from 05/25/2021. CT chest dated from 05/25/2021. CT cervical spine dated from 01/30/2021. TECHNIQUE: Contiguous axial imaging was performed from the skull base to vertex without intravenous administration of contrast. Contiguous axial imaging was performed from the upper chest through the skull base without intravenous administration of contrast. Coronal and sagittal reformats were obtained at the acquisition workstation. This CT examination was performed using dose optimization techniques as appropriate, variously including the following: *Automated exposure control *Adjustment of mA and/or kV according to patient size (this includes techniques or standardized protocols for targeted exams where dose is matched to indication/reason for exam; i.e. extremities or head) *Use of iterative reconstruction technique DLP: 547 mGy-cm FINDINGS: Head: There is new decreased james to white matter differentiation in the right parietal temporal lobe (image 49 of series 3) concerning for an acute territorial infarction. No evidence of acute intracranial hemorrhage. A few foci of hypoattenuation in the periventricular and deep white matter are consistent with mild microangiopathy. Proportional prominence of the ventricles and sulcal spaces. No evidence for obstructive hydrocephalus. No abnormal mass effect or midline shift. No extra-axial fluid collections. No acute soft tissue or osseous abnormalities. The mastoid air cells and paranasal sinuses are clear. Cervical Spine: The atlantooccipital and atlantoaxial articulations remain well aligned. There is anatomic alignment of the vertebral bodies and posterior elements. No evidence of acute fracture or subluxation. There is moderate multilevel cervical spondylosis with disc space narrowing, osteophytes and bilateral facet arthropathy, which is more prominent at C4-C5. There is no prevertebral soft tissue swelling. The thyroid gland and remaining cervical soft tissues are normal in appearance. Biapical paraseptal emphysema. Surgical sutures are again noted in the posterior aspect of the right lung apex. There is persistent diffuse mosaic attenuation of the parenchyma with bronchial wall thickening, not significantly changed since May. CT/CT cervical spine wo con IMPRESSION: New decrease james to white matter differentiation in the right parietal-temporal lobe concerning for an acute territorial infarction. No intraparenchymal bleeding or significant mass effect. No acute cervical spinal traumatic sequela. Cervical spondylosis. This critical result was discussed with Dr. Leo at 08/21/2021 10:24 PM and it was ascertained that the content and urgency of the report was understood at the time of direct communication.
--- NOTE | ~2021-08-21 | XR_ITS ---
EXAMINATION: XR CHEST CLINICAL INFORMATION: Endotracheal tube, line, OG tube placement COMPARISON: 05/25/2021. CT from today. TECHNIQUE: Frontal view of the chest was obtained. FINDINGS: Endotracheal tube terminates 3 cm above the sheryl. Enteric tube extends into the stomach. Right internal jugular central venous catheter terminates near the cavoatrial junction. The lungs are well expanded. Bronchial wall thickening present throughout. No pleural effusion or pneumothorax. The right lower lobe consolidation seen on the CT is not clearly defined. The cardiomediastinal silhouette remains prominent, with a calcified aorta. XR/XR chest 1V IMPRESSION: Endotracheal tube terminates 3 cm above the sheryl. Enteric tube extends into the stomach. Right internal jugular central venous catheter terminates near the cavoatrial junction. No pneumothorax.
--- NOTE | ~2021-08-21 | CT_ITS ---
EXAMINATION: IV contrast enhanced CT angiography of the head and neck; delayed IV contrast-enhanced CT the head CLINICAL INFORMATION: Status post fall. Decreased james-white matter differentiation right parietal temporal lobe concerning for acute infarct. COMPARISON: CT head 08/21/2021. CT head 05/25/2021. TECHNIQUE: IV contrast enhanced CT angiography of the head and neck with multiple 3-D reformatted angiographic thick section MIPS images processed on the technologist workstation under concurrent supervision; delayed IV contrast-enhanced CT the head. Vascular stenoses are made with reference to the NASCET criteria less otherwise specified. This CT examination was performed using dose optimization techniques as appropriate, variously including the following: *Automated exposure control *Adjustment of mA and/or kV according to patient size (this includes techniques or standardized protocols for targeted exams where dose is matched to indication/reason for exam; i.e. extremities or head) *Use of iterative reconstruction technique Intravenous Contrast: Omnipaque 350 70 mL DLP: 1528 mGy-cm FINDINGS: IV contrast-enhanced CT the head. Abnormal focal cortical and subcortical hypoattenuation is present in the region of the right parietotemporal area involving the right supramarginal and angular gyri where mild sulcal effacement is noted. A 4 mm x 2 mm calcification is present in the superior sulcus of the right sylvian fissure in close proximity to the area of parenchymal hypoattenuation. No intracranial hemorrhage is identified. Elsewhere in the brain, mild diffuse commensurate prominence of ventricles and sulci is visualized. No abnormal enhancement the brain parenchyma is demonstrated. A 2 mm punctate calcification is present in the anterior aspect of the left sylvian fissure. A vague punctate 1 mm possible cortical sulcal calcification is present in the right parietal region (series 16 image 40). A 1 mm punctate cortical or possible parenchymal calcification is noted in the anterior left frontal region (series 16 image 30). A punctate sulcal cortical calcification is present in the anterior left middle frontal lobe gyrus (series 14 image 11). The calcifications noted above appear unchanged compared with 05/25/2021 making allowances for interval differences in slice selection may represent chronic cortical vascular calcifications. The orbits and globes are normal in appearance. No significant opacification of the paranasal sinuses, mastoid air cells and middle ear cavities. CT angiography neck: Dense calcific atherosclerosis is present within the incidentally visualized transverse aorta. Common origin of the brachiocephalic and left common carotid arteries is noted. Bilateral carotid bulb eccentric calcific and noncalcific atherosclerosis is present results in mild (less than 50%) focal stenoses of the carotid bulbs and origins of the common carotid arteries. No ulcerative plaques are noted in the region of the carotid bulbs. The vertebral arteries are codominant. Nonocclusive bilateral vertebral artery ostial calcifications are present. CT angiography head: Images are suboptimal secondary to significant intracranial intraluminal venous opacification. origin of the left posterior cerebral artery is noted. Nonocclusive segmental calcific atherosclerosis of the cavernous portions of the internal carotid arteries is prior the M1 segments of the left and right middle cerebral arteries are patent. Making allowances for significant concurrent intraluminal venous opacification within the head, no definitive distal MCA vascular occlusions are noted. The 4 mm calcification within the posterior right sylvian fissure is noted in close proximity with adjacent M3 branches of the right middle cerebral artery. This calcification is unchanged in location compared with CT the head at 09/03/2021 and is therefore not definitive for an acute occlusive embolus. An anterior communicating artery is noted. Moderate multilevel intervertebral disc space narrowing is present within the cervical spine with findings most pronounced at C4-C5 and C5-C6. Incidentally visualized lung apices demonstrate mild biapical pleural parenchymal scarring of the lungs and mild paraseptal emphysematous changes. No cervical lymphadenopathy. CT/CT angio head neck stroke IMPRESSION: IV contrast-enhanced CT the head: -Acute-subacute cortical and subcortical infarct within the right temporoparietal region. Focal cortical and subcortical hypodensity is present in the region of the right supramarginal and angular gyri in the right temporoparietal region. This finding is new compared with 05/25/2021. -No acute intracranial hemorrhage. -Small number scattered multifocal cortical vascular calcifications unchanged compared with 05/25/2021 which could represent chronic calcific emboli or benign venous calcifications. CT angiography head: -No large vessel intracranial occlusions. Patent M1 segments of the middle cerebral arteries. -Nonocclusive segmental calcific atherosclerosis of the cavernous portions of the internal carotid arteries. CT angiography neck: -Mild (less than 50%) focal stenoses of the left and right carotid bulbs and proximal internal carotid arteries. No associated ulcerative plaques. -Marked nonocclusive calcific atherosclerosis within the transverse aorta and nonocclusive atherosclerotic plaque associated with the origin of the great vessels. Common origin of the brachiocephalic and left common carotid arteries. This result with particular regards to the acute-subacute right temporoparietal infarct and no large vessel intracranial occlusions was discussed with Urbano Simmons MD by telephone at 08/21/2021 11:27 PM and it was ascertained that the content and urgency of the report was understood at the time of direct communication.
--- NOTE | ~2021-08-21 | CT_ITS ---
EXAMINATION: CT CHEST WITHOUT CONTRAST CLINICAL INFORMATION: Hypoxia COMPARISON: 05/25/2021 TECHNIQUE: Multidetector volumetric CT imaging of the chest was done. Axial MIP volume rendering provided. Sagittal and coronal reformatted images were obtained. This CT examination was performed using dose optimization techniques as appropriate, variously including the following: *Automated exposure control *Adjustment of mA and/or kV according to patient size (this includes techniques or standardized protocols for targeted exams where dose is matched to indication/reason for exam; i.e. extremities or head) *Use of iterative reconstruction technique DLP: 595 mGy-cm FINDINGS: STOCK CLERK: The endotracheal tube terminates 2 cm above the sheryl. LUNGS: The central airways are patent. Mild paraseptal emphysema greatest in the upper lobes. Mild interlobular septal thickening. Bronchial wall thickening noted. There is a right lower lobe consolidation with air bronchograms. This is increased from prior. Chronic appearing pleural thickening with calcification at the right base. Patchy left basilar atelectasis. No pneumothorax. No pleural effusion. MEDIASTINUM: Enlarged heart. Coronary artery calcifications are present. Ascending thoracic aorta measures 4.1 cm. Prominent mediastinal lymph nodes are similar to prior. For instance there is a precarinal node measuring 1.3 cm short axis. AXILLA: No lymphadenopathy. UPPER ABDOMEN: No acute abnormality. Cholecystectomy. OSSEOUS STRUCTURES: No acute or suspicious osseous abnormality. Degenerative changes throughout the spine. CT/CT chest wo con IMPRESSION: Increased right lower lobe consolidation. This is concerning for pneumonia. Prominent mediastinal lymph nodes are likely reactive. There is also septal thickening with bronchial wall thickening. This may represent a component of edema. Mild emphysema. Chronic changes at the right basilar pleura. Endotracheal tube terminates 2 cm above the sheryl. Cardiomegaly.
[2021-08-21 20:25] VITALS: BP 115/83; BP 142/82; PULSE 72; PULSE 86; RESP 21; TEMP 37.4; O2SAT 96; O2SAT 97; BMI 38.2
--- NOTE | 2021-08-21 20:55 | ED_ITS ---
HPI - Fall General Chief Complaint: Fall Stated Complaint: fall Time Seen by Provider: 08/21/21 20:55 Source: patient Mode of arrival: EMS Limitations: no limitations History of Present Illness HPI Narrative: Patient walks with a walker was going to bathroom without walker holding herself to the [place] left leg gave out sleep fell no loss of consciousness noted within the hit her head to the side of the tub complaining of pain in left clavicle area which was broken in the past no other injuries. Also patient had bleeding from right nostril , not any more Related Data Home Medications Medication Instructions Recorded Confirmed atorvastatin 40 mg tablet 40 mg PO DAILY tab 08/19/20 08/22/21 diltiazem HCl 120 mg 120 mg PO BID cap 08/19/20 08/22/21 capsule,extended release 12 hr guaifenesin 600 mg tablet, 600 mg PO BID 08/30/20 08/22/21 extended release 12 hr (Mucinex) ipratropium 0.5 mg-albuterol 3 mg 3 ml INHALATION Q6H PRN 08/30/20 08/22/21 (2.5 mg base)/3 mL nebulization soln clonazepam 0.5 mg tablet 0.25 mg PO BEDTIME PRN tab 10/04/20 08/22/21 dicyclomine 10 mg capsule 10 mg PO TIDWM cap 10/04/20 08/22/21 levothyroxine 175 mcg tablet 175 mcg PO DAILY@0630 tab 10/04/20 08/22/21 omeprazole 20 mg capsule,delayed 20 mg PO DAILY cap 10/04/20 08/22/21 release lactulose 10 gram/15 mL oral 15 ml PO BID PRN 10/25/20 08/22/21 solution furosemide 20 mg tablet 60 mg PO DAILY tab 11/30/20 08/22/21 cyanocobalamin (vitamin B-12) 1,000 mcg IM Q30D 03/31/21 08/22/21 1,000 mcg/mL injection solution gabapentin 300 mg capsule 300 mg PO BEDTIME 03/31/21 08/22/21 acetaminophen 325 mg tablet 650 mg PO Q4H PRN 05/25/21 08/22/21 aspirin 81 mg chewable tablet 81 mg PO DAILY 05/25/21 08/22/21 buspirone 7.5 mg tablet 1 tab PO BID 05/25/21 08/22/21 fluticasone furoate 200 1 inh INHALATION BEDTIME 05/25/21 08/22/21 mcg-vilanterol 25 mcg/dose inhalation powder (Breo Ellipta) oxybutynin chloride 15 mg 15 mg PO BID 05/25/21 08/22/21 tablet,extended release 24 hr Previous Rx's Medication Instructions Recorded albuterol sulfate 90 mcg/actuation 2 puff PO DAILY PRN #18 g 09/22/20 aerosol inhaler mirabegron 50 mg tablet,extended 50 mg PO BID 30 Days #60 tab 12/03/20 release 24 hr (Myrbetriq) acetazolamide 250 mg tablet 250 mg PO DAILY #30 tab 06/01/21 Allergies Allergy/AdvReac Type Severity Reaction Status Date / Time morphine [Morphine] Allergy Unknown UNKNOWN Verified 05/25/21 12:58 Review of Systems Review of Systems: Yes all other systems are reviewed and are negative [facility] Past Medical History Medical History Atherosclerotic cardiovascular disease Atrial arrhythmia Bifascicular block Chronic diastolic (congestive) heart failure COPD (chronic obstructive pulmonary disease) COPD (chronic obstructive pulmonary disease) Enuresis Nonrheumatic aortic (valve) stenosis On home oxygen therapy DHEERAJ (obstructive sleep apnea) Respiratory failure with hypoxia and hypercapnia Thoracic aortic aneurysm (TAA) Urge incontinence Surgical History History of umbilical hernia repair Family History Family History Father No problems noted. Mother No problems noted. Social History Social History Household Members: None Housing: Other Housing Other:: lives alone - unsure if house or apt Unable to assess alcohol history related to: Unable to respond and Refusing to respond Alcohol intake: never Patient Tobacco Use Status: Current everyday Tobacco user Advance Directives: Yes Advance Directives on File: Yes Advance Directives Date on File: 05/25/21 service: No Current occupational status: disabled Physical Exam Vital Signs: Vital Signs: Last Vital Signs Temp 98.1 F 08/21/21 21:50 Pulse 98 08/21/21 21:50 Resp 16 08/21/21 21:50 BP 130/75 08/21/21 21:50 Pulse Ox 97 08/21/21 21:50 Oxygen Flow Rate 2 08/21/21 20:25 Body Mass Index 38.2 Appearance: Alert. Oriented X3. No acute distress. Eyes: PERRL HEENT: Pharynx normal. Oral Mucosa moist atraumatic normocephalic Neck: Normal inspection. Neck supple. No midline tenderness CVS: Normal heart rate and rhythm. Pulses normal. Respiratory: No respiratory distress. Equal air entry bilateral, no wheezing/rales/rhonchi Abdomen: Soft and nontender. Bowel sounds are present, no mass palpable, no CVA tenderness Skin: Skin warm and dry. Normal skin color. Normal skin turgor. Extremities: No lower extremity edema. No calf tenderness, mild tender l clavicle Neuro: Oriented X 3. No motor deficit. No sensory deficit.No cerebellar signs , cranial nerves II-XII intact NIH Stroke Scale Internal: Initial- Upon Arrival Level of Consciousness: Alert Level of Consciousness Questions: Answers both questions correctly Level of Consciousness Commands: Performs both tasks correctly Best Gaze: Normal Visual: No visual loss Facial Palsy: Normal Motor Arm (Right): No drift Motor Arm (Left): No drift Motor Leg (Right): No drift Motor Leg (Left): No drift Limb Ataxia: Absent Sensory: Normal Best Language: No aphasia Dysarthia: Normal Extinction and Inattention: No abnormality Score: 0 MDM - Fall MDM Narrative Medical decision making narrative: Patient status post mechanical fall CT scan of the head showed decreased james to white matter differentiation in the right parietotemporal area patient neurological intact complaining of numbness on the left side since 03/04 no focal deficit appreciated patient was in rehab 2 days a go and came home according to her son also he noticed any significant weakness on [address] head and neck was done which was negative for LV 0 patient takes 81 mg aspirin daily will admit patient for further evaluation but patient is refusing to be admitted Medical Records Attestation: I reviewed the patient's medical records. Lab Data Attestation: I reviewed the patient's lab results. Result diagrams: 08/21/21 22:30 08/21/21 22:30 Labs: Lab Results 08/21/21 08/21/21 Range/Units 22:30 22:30 WBC 7.8 (4.8-10.8) X10*3/uL RBC 3.57 L (4.20-5.50) X10*6/uL Hgb 11.1 L (12.0-16.0) g/dl Hct 35.0 L (37.0-47.0) % MCV 98.0 (80.0-98.0) fL MCH 31.1 (27.0-33.0) pg MCHC 31.7 (31.0-35.0) g/dl RDW 12.8 (11.0-16.0) % Plt Count 169 (160-400) X10*3/uL MPV 9.8 (9.4-12.3) fL Immature Gran % (Auto) 0.4 (0.0-0.4) % Neut % (Auto) 65.9 (45-73) % Lymph % (Auto) 19.9 L (20-40) % Dawes % (Auto) 11.3 H (2-11) % Eos % (Auto) 1.9 (0-4) % Baso % (Auto) 0.6 (0-2) % Lymph # (Auto) 1.6 (1.2-4.9) X10*3/uL Dawes # (Auto) 0.9 (0.1-1.2) X10*3/uL Eos # (Auto) 0.2 (0.0-0.4) X10*3/uL Baso # (Auto) 0.1 (0.0-0.2) X10*3/uL Abs Immat Gran (auto) 0.03 (0.00-0.03) X10*3/uL Absolute Neuts (auto) 5.2 (2.0-8.3) x10*3/uL Absolute Nucleated RBC 0.000 (0.0-0.012) X10*3/uL Nucleated RBC % (auto) 0.0 (0.0-0.2) /100WBC Sodium 144 (135-145) mmol/L Potassium 3.5 (3.3-5.1) mmol/L Chloride 105 (96-108) mmol/L Carbon Dioxide 32 H (22-29) mmol/L Anion Gap 11 L (12-20) BUN 21 H (9-16) mg/dL Creatinine 0.84 (0.5-1.4) mg/dL Estim Creat Clear Calc 66.8 Estimated GFR > 60 Random Glucose 102 (60-115) mg/dL Calcium 8.5 (8.4-10.2) mg/dL Discharge Plan Discharge Clinical Impression: Acute CVA (cerebrovascular accident) Patient Disposition: Admitted As Inpatient
[2021-08-21 21:50] VITALS: BP 130/75; PULSE 98; RESP 16; TEMP 36.7; O2SAT 97
[2021-08-21 22:34] LABS: MANUAL DIFF FLAG NO
[2021-08-21 22:35] LABS: Basophils Absolute Auto 0.1 X10*3/uL (0.0-0.2); Basophils Percent Auto 0.6 % (0-2); Eosinophils Absolute Auto 0.2 X10*3/uL (0.0-0.4); Eosinophils Percent Auto 1.9 % (0-4); Hemoglobin 11.1 g/dl (12.0-16.0); Imm Gran Abs Auto 0.03 X10*3/uL (0.00-0.03); Imm Gran Pct Auto 0.4 % (0.0-0.4); Lymphocytes Absolute Auto 1.6 X10*3/uL (1.2-4.9); Lymphocytes Percent Auto 19.9 % (20-40); Mean Corpuscular HGB Conc 31.7 g/dl (31.0-35.0); Mean Corpuscular Hemoglobin 31.1 pg (27.0-33.0); Mean Platelet Volume 9.8 fL (9.4-12.3); Monocytes Absolute Auto 0.9 X10*3/uL (0.1-1.2); Monocytes Percent Auto 11.3 % (2-11); Neutrophils Absolute Auto 5.2 x10*3/uL (2.0-8.3); Neutrophils Percent Auto 65.9 % (45-73); Platelet Count 169 X10*3/uL (160-400); Red Blood Count 3.57 X10*6/uL (4.20-5.50); Red Cell Distribution Width 12.8 % (11.0-16.0); White Blood Count 7.8 X10*3/uL (4.8-10.8)
[2021-08-21] MEDS: iohexoL 350 MG/ML 100 ML INFUS..BTL IV (22:47)
[2021-08-21 22:49] LABS: Anion Gap 11 (12-20); Blood Urea Nitrogen 21 mg/dL (9-16); Calcium 8.5 mg/dL (8.4-10.2); Carbon Dioxide 32 mmol/L (22-29); Chloride 105 mmol/L (96-108); Creatinine Clr Calc Pharmacy 66.8; Estimated Glomerular Filt Rate > 60; Glucose Random 102 mg/dL (60-115); Potassium 3.5 mmol/L (3.3-5.1); Sodium 144 mmol/L (135-145)
--- NOTE | 2021-08-21 22:57 | PC.NURSE ---
PATIENT REFUSED TO [facility] ,RN AWARE .
[2021-08-22] VITALS (8 sets, daily range): BP systolic 126–140; BP diastolic 55–79; PULSE 75–110; RESP 16–22; TEMP 36.9–37.2; O2SAT 91–95
--- NOTE | 2021-08-22 | ECG_ITS ---
Test Reason : REPEAT Blood Pressure : / mmHG Vent. Rate : 096 BPM Atrial Rate : 096 BPM P-R Int : 186 ms QRS Dur : 164 ms QT Int : 406 ms P-R-T Axes : 016 -63 013 degrees QTc Int : 512 ms Sinus rhythm with occasional and Premature atrial complexes Right bundle branch block Left anterior fascicular block Bifascicular block Minimal voltage criteria for LVH, may be normal variant ( R in aVL ) Abnormal ECG When compared with ECG of 22-AUG-2021 02:18, No significant changes seen Referred By: Suzette Noble Electronically Signed By:CHRISTOPHER SOSA MD
[2021-08-22] MEDS: Gabapentin 300 MG CAPSULE PO (00:23)
[2021-08-22] MEDS: clonazePAM 1 MG TABLET PO (00:23)
--- NOTE | 2021-08-22 00:28 | P.HPHOSP_ITS ---
History of Present Illness Date of Service: 08/22/21 Chief Complaint: Fall Amanda is 71-year-old female with past medical history of atrial arrhythmia, bifascicular block, CHF, hypothyroidism, DHEERAJ, COPD, who presents to the hospital with complaints of a fall. Patient reports that she has neuropathy of her left lower extremity, with frequent numbness, she tried to get up out of her C, to walk to the kitchen without her walker, reached ever walker, her left leg became weak and she fell. Patient reports that she just came from the rehab facility about 4 days ago, about a week ago at the rehab facility she also had worsening left leg numbness more than her usual, some weakness, no upper extremity weakness numbness or tingling, no difficulty with speech, no change in her vision. She reports head trauma on her fall today, denies any chest pain, no palpitations, no abdominal pain nausea or vomiting, no diarrhea or constipation, no urinary symptoms and no worsening leg swelling. She has chronic leg swellin g. Denies any cough fever or chills. On arrival to the ED patient vitals are significant for a temperature of 98.1?, heart rate of 72, respiratory rate of 21, blood pressure of 115/83, satting 96% on room air Labs are significant for WBC count of 7.8, hemoglobin of 11.1, BUN of 21, creatinine of 0.84, otherwise unremarkable Head CT showed you decreased james to white matter differentiation in the right parietal temporal lobe concerning for an acute territorial infarction, no intraparenchymal bleeding or significant mass effect, Head and neck CT angiogram shows mild focal stenosis of the left and right carotid bulbs and proximal internal carotid arteries less than 50%. No associated ulcerative plaques. Marked nonocclusive calcific atherosclerosis within the transverse aorta and nonocclusive atherosclerotic place associated with the origin of the great vessels. Patient will be admitted for further evaluate Review of Systems Review of Systems: Yes all other systems are reviewed and are negative [facility] Medical History Atherosclerotic cardiovascular disease Atrial arrhythmia Bifascicular block Chronic diastolic (congestive) heart failure COPD (chronic obstructive pulmonary disease) COPD (chronic obstructive pulmonary disease) Enuresis Nonrheumatic aortic (valve) stenosis On home oxygen therapy DHEERAJ (obstructive sleep apnea) Respiratory failure with hypoxia and hypercapnia Thoracic aortic aneurysm (TAA) Urge incontinence Family History Father No problems noted. Mother No problems noted. Surgical History History of umbilical hernia repair Social History Household Members: None Housing: Other Housing Other:: lives alone - unsure if house or apt Unable to assess alcohol history related to: Unable to respond and Refusing to respond Alcohol intake: never Patient Tobacco Use Status: Current everyday Tobacco user Advance Directives: Yes Advance Directives on File: Yes Advance Directives Date on File: 05/25/21 service: No Current occupational status: disabled Meds Allergies Allergy/AdvReac Type Severity Reaction Status Date / Time morphine [Morphine] Allergy Unknown UNKNOWN Verified 05/25/21 12:58 Home Medications Medication Instructions Recorded Confirmed Last Taken Type atorvastatin 40 mg tablet 40 mg PO DAILY tab 08/19/20 08/22/21 08/21/21 History diltiazem HCl 120 mg 120 mg PO BID cap 08/19/20 08/22/21 08/21/21 History capsule,extended release 12 hr guaifenesin 600 mg tablet, 600 mg PO BID 08/30/20 08/22/21 08/21/21 History extended release 12 hr (Mucinex) ipratropium 0.5 mg-albuterol 3 mg 3 ml INHALATION Q6H PRN 08/30/20 08/22/21 08/21/21 History (2.5 mg base)/3 mL nebulization soln clonazepam 0.5 mg tablet 0.25 mg PO BEDTIME PRN tab 10/04/20 08/22/21 08/21/21 History dicyclomine 10 mg capsule 10 mg PO TIDWM cap 10/04/20 08/22/21 08/21/21 History levothyroxine 175 mcg tablet 175 mcg PO DAILY@0630 tab 10/04/20 08/22/21 08/21/21 History omeprazole 20 mg capsule,delayed 20 mg PO DAILY cap 10/04/20 08/22/21 08/21/21 History release lactulose 10 gram/15 mL oral 15 ml PO BID PRN 10/25/20 08/22/21 08/21/21 History solution furosemide 20 mg tablet 60 mg PO DAILY tab 11/30/20 08/22/21 08/21/21 History cyanocobalamin (vitamin B-12) 1,000 mcg IM Q30D 03/31/21 08/22/21 08/21/21 History 1,000 mcg/mL injection solution gabapentin 300 mg capsule 300 mg PO BEDTIME 03/31/21 08/22/21 08/21/21 History acetaminophen 325 mg tablet 650 mg PO Q4H PRN 05/25/21 08/22/21 08/21/21 History aspirin 81 mg chewable tablet 81 mg PO DAILY 05/25/21 08/22/21 08/21/21 History buspirone 7.5 mg tablet 1 tab PO BID 05/25/21 08/22/21 08/21/21 History fluticasone furoate 200 1 inh INHALATION BEDTIME 05/25/21 08/22/21 08/21/21 History mcg-vilanterol 25 mcg/dose inhalation powder (Breo Ellipta) oxybutynin chloride 15 mg 15 mg PO BID 05/25/21 08/22/21 08/21/21 History tablet,extended release 24 hr Physical Exam Vital Signs and Narrative: Vital Signs: Last Vital Signs Temp 98.1 F 08/21/21 21:50 Pulse 98 08/21/21 21:50 Resp 16 08/21/21 21:50 BP 130/75 08/21/21 21:50 Pulse Ox 97 08/21/21 21:50 Oxygen Flow Rate 2 08/21/21 20:25 Body Mass Index 38.2 Const: General: cooperative and no acute distress Orientation/consciousness: patient oriented x3 Eyes: General: appearance normal, both eyes and all related structures Pupils: Equal, round and reactive pupils present Resp: Effort & Inspection: normal respiratory effort Auscultation: clear to auscultation bilaterally Cardio: Rate: regular rate Rhythm: regular rhythm GI: Palpation (GI): Soft to palpation Auscultation: normal bowel sounds Skin: General skin exam: no rashes or lesions noted Neuro: Other: NO NEUROLOGICAL DEFICITS NOTED, STRENGTH IS 5/5 IN ALL EXTREMITIES General: patient oriented x3 Cranial nerves: Yes Equal, round and reactive pupils present Cognition (Neuro): normal cognition Extrem: General: Yes normal to inspection and Yes no pedal edema Results Labs CBC and Chem 7: 08/21/21 22:30 08/21/21 22:30 Labs: Laboratory Results - last 24 hr 08/21/21 08/21/21 22:30 22:30 MCV 98.0 MCH 31.1 MCHC 31.7 RDW 12.8 Plt Count 169 MPV 9.8 Immature Gran % (Auto) 0.4 Neut % (Auto) 65.9 Lymph % (Auto) 19.9 L [place] % (Auto) 11.3 H Eos % (Auto) 1.9 Baso % (Auto) 0.6 Lymph # (Auto) 1.6 [place] # (Auto) 0.9 Eos # (Auto) 0.2 Baso # (Auto) 0.1 Abs Immat Gran (auto) 0.03 Absolute Neuts (auto) 5.2 Absolute Nucleated RBC 0.000 Nucleated RBC % (auto) 0.0 Anion Gap 11 L Estim Creat Clear Calc 66.8 Estimated GFR > 60 Random Glucose 102 Calcium 8.5 Imaging Radiologist's Impressions: Impressions Clavicle X-Ray 08/21/21 21:14 IMPRESSION: Chronic deformity to the mid left clavicle consistent with an old healed fracture as seen on prior studies. Cervical Spine CT 08/21/21 21:15 IMPRESSION: New decrease james to white matter differentiation in the right parietal-temporal lobe concerning for an acute territorial infarction. No intraparenchymal bleeding or significant mass effect. No acute cervical spinal traumatic sequela. Cervical spondylosis. This critical result was discussed with Dr. Leo at 08/21/2021 10:24 PM and it was ascertained that the content and urgency of the report was understood at the time of direct communication. Head CT 08/21/21 21:15 IMPRESSION: New decrease james to white matter differentiation in the right parietal-temporal lobe concerning for an acute territorial infarction. No intraparenchymal bleeding or significant mass effect. No acute cervical spinal traumatic sequela. Cervical spondylosis. This critical result was discussed with Dr. Leo at 08/21/2021 10:24 PM and it was ascertained that the content and urgency of the report was understood at the time of direct communication. Head/Neck CTA 08/21/21 22:22 IMPRESSION: IV contrast-enhanced CT the head: -Acute-subacute cortical and subcortical infarct within the right temporoparietal region. Focal cortical and subcortical hypodensity is present in the region of the right supramarginal and angular gyri in the right temporoparietal region. This finding is new compared with 05/25/2021. -No acute intracranial hemorrhage. -Small number scattered multifocal cortical vascular calcifications unchanged compared with 05/25/2021 which could represent chronic calcific emboli or benign venous calcifications. CT angiography head: -No large vessel intracranial occlusions. Patent M1 segments of the middle cerebral arteries. -Nonocclusive segmental calcific atherosclerosis of the cavernous portions of the internal carotid arteries. CT angiography neck: -Mild (less than 50%) focal stenoses of the left and right carotid bulbs and proximal internal carotid arteries. No associated ulcerative plaques. -Marked nonocclusive calcific atherosclerosis within the transverse aorta and nonocclusive atherosclerotic plaque associated with the origin of the great vessels. Common origin of the brachiocephalic and left common carotid arteries. This result with particular regards to the acute-subacute right temporoparietal infarct and no large vessel intracranial occlusions was discussed with Urbano Simmons MD by telephone at 08/21/2021 11:27 PM and it was ascertained that the content and urgency of the report was understood at the time of direct communication. Assessment and Plan (1) Acute CVA (cerebrovascular accident): Status: Acute (2) Fall: Qualifiers: Encounter type: initial encounter Qualified Code(s): W19.XXXA - Unspecified fall, initial encounter Status: Acute 71-year-old female with multiple past medical history presents to the hospital with acute complaints of fall found to have acute CVA # acute CV - currently has no neurological deficit - CT of the head shows acute CVA in the right temporoparietal region - shows sinus tachycardia with premature atrial complex - CT angiogram negative for any significant stenosis - will obtain echocardiogram - start on aspirin, high-dose statin - PT OT - consult neurology # fall - most likely secondary to CVA versus neuropathy - patient not using her walker appropriately - head trauma - negative CT for any hemorrhage - PT OT # hypothyroidism - continue levothyroxine # hypertension - stable - continue antihypertensive # history of CHF - not in exacerbation - continue Lasix # COPD - not in exacerbation - continue home inhaler DVT prophylaxis: lovenox Quality Stroke Does the patient have a stroke diagnosis?: No VTE Prior VTE?: No VTE Risk Level:: Medical - moderate - high VTE Device Contraindication: Treatment Not Indicated VTE Drug Contraindication: N/A - Med Ordered
--- NOTE | 2021-08-22 00:43 | ECG_ITS ---
Test Reason : FALL Blood Pressure : / mmHG Vent. Rate : 104 BPM Atrial Rate : 104 BPM P-R Int : 172 ms QRS Dur : 166 ms QT Int : 404 ms P-R-T Axes : -05 -70 030 degrees QTc Int : 531 ms Sinus tachycardia with Premature atrial complexes Left axis deviation Right bundle branch block Abnormal ECG When compared with ECG of 25-MAY-2021 13:04, No significant change was found Referred By: Urbano Simmons Electronically Signed By:CHRISTOPHER SOSA MD
[2021-08-22] MEDS: dilTIAZem HCL CD 120 MG CAP.ER.DEG PO ×3 (00:46→21:00)
[2021-08-22 01:12] LABS: COVID-19 Test Negative (Negative); IDNOW Serial# 9DD0AD1C
--- NOTE | 2021-08-22 01:27 | PC.NURSE ---
GOT PT CHANGED OVER IN TO HOSPITAL GOWN. PUT PT ON LIVESTOCK COMMISSION AGENT. PUT PT DENTURES IN CUP WITH CLEANING TABS. WRAPPED IV SO IT WOULDN'T COME OUT BUT PT DIDN'T LIKE THE WRAPPING SO SHE TOOK IT OFF SAID IT HURT .
[2021-08-22] MEDS: Enoxaparin Sodium 40 MG/0.4 ML SYRINGE SUBCUT (03:35)
[2021-08-22] MEDS: Dicyclomine HCl 10 MG CAPSULE PO ×2 (06:44→18:11)
[2021-08-22] MEDS: Omeprazole 20 MG CAPSULE.DR PO (06:44)
[2021-08-22 07:04] LABS: MANUAL DIFF FLAG NO
[2021-08-22 07:06] LABS: Basophils Absolute Auto 0.1 X10*3/uL (0.0-0.2); Basophils Percent Auto 0.8 % (0-2); Eosinophils Absolute Auto 0.2 X10*3/uL (0.0-0.4); Eosinophils Percent Auto 3.3 % (0-4); Hematocrit 34.6 % (37.0-47.0); Hemoglobin 10.9 g/dl (12.0-16.0); Imm Gran Abs Auto 0.01 X10*3/uL (0.00-0.03); Imm Gran Pct Auto 0.2 % (0.0-0.4); Lymphocytes Absolute Auto 1.3 X10*3/uL (1.2-4.9); Mean Corpuscular HGB Conc 31.5 g/dl (31.0-35.0); Mean Corpuscular Hemoglobin 30.9 pg (27.0-33.0); Mean Platelet Volume 9.9 fL (9.4-12.3); Monocytes Absolute Auto 0.8 X10*3/uL (0.1-1.2); Monocytes Percent Auto 13.2 % (2-11); Neutrophils Absolute Auto 3.6 x10*3/uL (2.0-8.3); Neutrophils Percent Auto 60.5 % (45-73); Platelet Count 162 X10*3/uL (160-400); Red Blood Count 3.53 X10*6/uL (4.20-5.50); Red Cell Distribution Width 13.1 % (11.0-16.0)
[2021-08-22 07:24] LABS: Anion Gap 9 (12-20); Blood Urea Nitrogen 17 mg/dL (9-16); Calcium 8.5 mg/dL (8.4-10.2); Carbon Dioxide 32 mmol/L (22-29); Chloride 106 mmol/L (96-108); Creatinine Clr Calc Pharmacy 68.5; Estimated Glomerular Filt Rate > 60; Glucose Random 107 mg/dL (60-115); Potassium 3.4 mmol/L (3.3-5.1); Sodium 144 mmol/L (135-145)
[2021-08-22] MEDS: Furosemide 20 MG TABLET 60 MG PO (09:15)
[2021-08-22] MEDS: guaiFENesin LA 600 MG TAB.ER.12H PO ×2 (09:15→21:00)
[2021-08-22] MEDS: Aspirin 81 MG TAB.CHEW PO (09:15)
[2021-08-22] MEDS: Mirabegron 50 MG TAB.ER.24H PO (09:16)
[2021-08-22] MEDS: Levothyroxine Sodium 175 MCG TABLET PO (09:16)
[2021-08-22] MEDS: busPIRone HCl 5 MG TABLET 7.5 MG PO ×2 (09:16→21:00)
[2021-08-22] MEDS: acetaZOLAMIDE 250 MG TABLET PO (09:16)
--- NOTE | 2021-08-22 10:01 | MHC.STROKE ---
08/21/212016 PATIENT ARRIVED FROM HOME VIA EMS S/P FALL. CT HEAD REVEALED SUB-ACUTE RIGHT PARIETAL ISCHEMIC STROKE. UNKNOWN ONSET BUT COULD BE FROM 1 WEEK AGO, 08/15/21 BASED ON H&P. VERIFIED THAT SHE PASSED NURSING SWALLOW SCREEN AT 0045 PRIOR TO PO MEDS. THEN AGAIN AT 0800. NIHSS = 0 ACCORDING TO ED PROVIDER NOTE. EXCLUDED FROM TPA (ALTEPLASE) BASED ON SUBACUTE STROKE ON CT AND DELAY IN ARRIVAL/UNKNOWN ONSET. STROKE EDUCATION INITIATED. ON ASPIRIN, STATIN, LIPID PANEL ORDERED, ECHO ORDERED, CTA H/N DONE AND NO LVO NOTED. SHE WILL BE ASSESSED FOR REHAB. I WILL CONTINUE TO FOLLOW.
--- NOTE | 2021-08-22 10:29 | PC.NURSE ---
PT AMBULATED >HOUSEHOLD DISTANCE WITH W WALKER- SBA TO SUPERVISION ONLY. SHE OFFERS NO COMPLAINTS. SHE IS SITTING UP IN A BEDSIDE RECLINER
--- NOTE | 2021-08-22 10:30 | CA_ITS ---
Transthoracic Echocardiogram Patient (Last, First, Middle): Amanda Maradiaga L Gender: Female Date of : 1950 Age: 71 Procedure Date: 08/22/2021 Procedure Type: Transthoracic Echocardiogram Location: ER Height: 157.48 cm Weight: 94.8 kg BSA: 1.95 m2 Heart Rate: bpm BP: 130 / 58 mmHg Packaging Sales Consultant: GIULIA Referring MD: Suzette Noble MD Symptoms: CVA Study Quality: Fair ECG Rhythm: Sinus with PACs Conclusions: - The left ventricular systolic function is normal. The calculated ejection fraction is 59% - There is moderately increased left ventricular wall thickness. - There is moderate to severe aortic valve stenosis. - There is moderate mitral annular calcification. There is mild to moderate mitral valve regurgitation. - Moderate pulmonary hypertension is present. - Small plaque is seen in the sino tubular ridge. Findings Left Ventricle Normal left ventricular cavity size. There is moderately increased left ventricular wall thickness. The left ventricular systolic function is normal. The calculated ejection fraction is 59% by biplane method. Evidence suggests grade II (moderate) diastolic dysfunction. Right Ventricle Normal right ventricular cavity size and systolic function. TAPSE 2.6cm. Atria The left atrium is severely dilated. The right atrium is moderately dilated. Aortic Valve There is severe calcification of the aortic valve. There is moderate to severe aortic valve stenosis. The peak aortic velocity is 3.29 m/s with a calculated peak gradient of 43 mmHg. The mean gradient is 27 mmHg. The aortic valve area is 0.89 cm2. There is mild aortic valve regurgitation. Due to frequent ectopy, difficult to assess aortic stenosis severity; possibly moderate to severe. Mitral Valve There is moderate mitral annular calcification. There is mild to moderate mitral valve regurgitation. There is no mitral valve stenosis. Pulmonic Valve The pulmonic valve was not well visualized. There is trace pulmonic valve regurgitation. Tricuspid Valve Normal tricuspid valve structure. There is mild tricuspid valve regurgitation. The right ventricular systolic pressure is 56 mmHg. Moderate pulmonary hypertension is present. Great Vessels The aortic annulus and asc aorta are normal in size. Small plaque is seen in the sino tubular ridge. Venous The inferior vena cava is dilated and collapses greater than 50% with inspiration. Pericardium/Pleural There is a trivial pericardial effusion. Prior Study Comparison No significant change compared to prior study dated: 05/03/2021. Measurements 2D Linear Measurements IVSd: 1.23 0.6-0.9/0.6-1.0 cm LVIDd: 5.34 3.9-5.3/4.2-5.9 cm LVIDd Index: 2.74 2.4-3.2/2.2-3.1 cm/m2 LVIDs: 3.99 2.0-3.6 cm LVPWd: 1.30 0.7-1.1 cm Ao Root: 3.10 2.1-3.5 cm LA Diam: 5.60 2.7-3.8/3.0-4.0 cm LAIDs Index: 2.87 1.5-2.3 cm/m2 LV Mass: 348.58 67-162/88-224 g LV Mass Index: 178.76 43-95/49-115 g/m2 LVOT Diam: 2.00 3.0+(-)1.3 cm 2D Systolic Function EF 4C: 56.10 >55% EF 2C: 59.10 >55% EF BiP: 58.80 >55% Mitral Valve MV Pk E: 1.43 MV PK A: 0.84 MV Decel Time: 401.00 E/A: 1.70 PHT: 117.00 MVA PHT: 1.88 Decel [place]: 3.57 Aortic Valve AoV Pk Trey: 3.29 AoV Mn Trey: 2.42 AoV VTI: 0.74 AoV Pk Grad: 43.00 Aov Mn Grad: 27.00 AMBAR Cont.VTI: 0.89 LVOT LVOT Pk Trey: 0.88 LVOT Mn Trey: 0.60 LVOT VTI: 0.21 LVOT Pk Grad: 3.00 LVOT Mn Grad: 2.00 LVOT Diam: 2.00 LVOT Area: 3.14 Diastolic Function MV Pk E: 1.43 MV Pk A: 0.84 E/A: 1.70 Right Ventricle TAPSE (mm): 2.64 TVS' Trey: 8.70 Tricuspid Valve TR Pk Trey: 3.20 TR Pk Grad: 41.00 RA Press: 15.00 RVSP: 56.00 Great Vessels Aorta Ao Root-2D: 3.10 2.0-3.7 cm Ao Asc: 3.50 2.1-3.4 cm Updated in Other Vendor System with Status of Final Koby Camilo MD electronically signed on 08/22/2021 12:38:30 PM with status of Final
--- NOTE | 2021-08-22 10:48 | PM.NEUROCN ---
History of Present Illness Data of Consult Service Date: 08/22/21 Primary Care Provider: Unknown Physician HPI Reason for consult: Stroke 71 years old woman with underlying history of cardiac arrhythmias came to hospital after she fell. She said that she was sitting on a commode when her left foot got numb she tried to get up lost her balance and fell hitting her head on some hard object. She did not pass out. Apparently she had complained of left-sided her left foot or leg numbness recently and was in rehab. She did not provide any complaints of visual dysfunction. Review of Systems Review of Systems: No recent cold or flu-like illness. She was admitted in rehab recently with left leg numbness. [facility] Past Medical History Medical History Atherosclerotic cardiovascular disease Atrial arrhythmia Bifascicular block Chronic diastolic (congestive) heart failure COPD (chronic obstructive pulmonary disease) COPD (chronic obstructive pulmonary disease) Enuresis Nonrheumatic aortic (valve) stenosis On home oxygen therapy DHEERAJ (obstructive sleep apnea) Respiratory failure with hypoxia and hypercapnia Thoracic aortic aneurysm (TAA) Urge incontinence Family History Family History Father No problems noted. Mother No problems noted. Surgical History Surgical History History of umbilical hernia repair Social History Social History Household Members: None Housing: Other Housing Other:: lives alone - unsure if house or apt Unable to assess alcohol history related to: Unable to respond and Refusing to respond Alcohol intake: never Patient Tobacco Use Status: Current everyday Tobacco user Use of substances other than those prescribed or required for medical reasons: No Advance Directives: Yes Advance Directives on File: Yes Advance Directives Date on File: 05/25/21 service: No Current occupational status: disabled Meds Allergies Allergy/AdvReac Type Severity Reaction Status Date / Time morphine [Morphine] Allergy Unknown UNKNOWN Verified 05/25/21 12:58 Active Medications: Current Medications Acetaminophen (Acetaminophen 325 Mg Tablet) 650 mg PO Q6H PRN PRN Reason: Pain, Mild (Pain Scale 1-3) Acetazolamide (Acetazolamide 250 Mg Tablet) 250 mg PO DAILY [facility] Last Admin: 08/22/21 09:16 Dose: 250 mg Documented by: Albuterol Sulfate (Albuterol Sulfate 90 Mcg 8 Gm Inhaler) 2 puff INHALE DAILY PRN PRN Reason: for dyspnea Albuterol/Ipratropium (Albuterol/Iprat 2.5/0.5mg 3 Ml Ampul.Neb) 3 ml INHALE Q6H PRN PRN Reason: Wheezing Aspirin (Aspirin 81 Mg Tab.Chew) 81 mg PO DAILY [facility] Last Admin: 08/22/21 09:15 Dose: 81 mg Documented by: Atorvastatin Calcium (Atorvastatin Calcium 40 Mg Tablet) 40 mg PO BEDTIME [facility] Buspirone HCl (Buspirone Hcl 5 Mg Tablet) 7.5 mg PO BID [facility] Last Admin: 08/22/21 09:16 Dose: 7.5 mg Documented by: Clonazepam (Clonazepam 0.5 Mg Tablet) 0.25 mg PO BEDTIME PRN PRN Reason: Sleep Dicyclomine HCl (Dicyclomine Hcl 10 Mg Capsule) 10 mg PO TIDWM [facility] Last Admin: 08/22/21 06:44 Dose: 10 mg Documented by: Diltiazem HCl (Diltiazem Hcl Cd 120 Mg Cap.Er.Deg) 120 mg PO BID [facility]; Protocol Last Admin: 08/22/21 09:14 Dose: 120 mg Documented by: Docusate Sodium (Docusate Sodium 100 Mg Capsule) 100 mg PO DAILY PRN PRN Reason: Constipation Enoxaparin Sodium (Enoxaparin Sodium 40 Mg/0.4 Ml Syringe) 40 mg SUBCUT Q24H [facility] Last Admin: 08/22/21 03:35 Dose: 40 mg Documented by: Fluticasone/Vilanterol (Fluticasone/Vilanterol 200/25 Blst.W.Dev) 1 puff INHALE BEDTIME [facility] Furosemide (Furosemide 20 Mg Tablet) 60 mg PO DAILY [facility]; Protocol Last Admin: 08/22/21 09:15 Dose: 60 mg Documented by: Guaifenesin (Guaifenesin La 600 Mg Tab.Er.12h) 600 mg PO BID [facility] Last Admin: 08/22/21 09:15 Dose: 600 mg Documented by: Lactulose (Lactulose 20 Gm/30 Ml Solution) 10 gm PO BID PRN PRN Reason: Constipation Levothyroxine Sodium (Levothyroxine Sodium 175 Mcg Tablet) 175 mcg PO DAILY@0630 [facility] Last Admin: 08/22/21 09:16 Dose: 175 mcg Documented by: Mirabegron (Mirabegron 50 Mg Tab.Er.24h) 50 mg PO BID [facility] Last Admin: 08/22/21 09:16 Dose: 50 mg Documented by: Omeprazole (Omeprazole 20 Mg Capsule.) 20 mg PO DAILY@0630 [facility] Last Admin: 08/22/21 06:44 Dose: 20 mg Documented by: Ondansetron HCl (Ondansetron Hcl 4 Mg/2 Ml Vial) 4 mg IVPUSH Q8H PRN PRN Reason: Nausea and Vomiting Oxybutynin Chloride (Oxybutynin Chloride Er 5 Mg Tab.Er.24) 15 mg PO BID [facility] Last Admin: 08/22/21 09:15 Dose: 15 mg Documented by: Home Medications Medication Instructions Recorded Confirmed Last Taken Type atorvastatin 40 mg tablet 40 mg PO BEDTIME tab 08/19/20 08/22/21 08/21/21 History diltiazem HCl 120 mg 120 mg PO BID cap 08/19/20 08/22/21 08/21/21 History capsule,extended release 12 hr guaifenesin 600 mg tablet, 600 mg PO BID 08/30/20 08/22/21 08/21/21 History extended release 12 hr (Mucinex) ipratropium 0.5 mg-albuterol 3 mg 3 ml INHALATION Q6H PRN 08/30/20 08/22/21 08/21/21 History (2.5 mg base)/3 mL nebulization soln clonazepam 0.5 mg tablet 0.25 mg PO BEDTIME PRN tab 10/04/20 08/22/21 08/21/21 History dicyclomine 10 mg capsule 10 mg PO TIDWM cap 10/04/20 08/22/21 08/21/21 History levothyroxine 175 mcg tablet 175 mcg PO DAILY@0630 tab 10/04/20 08/22/21 08/21/21 History omeprazole 20 mg capsule,delayed 20 mg PO DAILY cap 10/04/20 08/22/21 08/21/21 History release lactulose 10 gram/15 mL oral 15 ml PO BID PRN 10/25/20 08/22/21 08/21/21 History solution furosemide 20 mg tablet 60 mg PO DAILY tab 11/30/20 08/22/21 08/21/21 History cyanocobalamin (vitamin B-12) 1,000 mcg IM Q30D 03/31/21 08/22/21 08/21/21 History 1,000 mcg/mL injection solution gabapentin 300 mg capsule 300 mg PO BEDTIME 03/31/21 08/22/21 08/21/21 History acetaminophen 325 mg tablet 650 mg PO Q4H PRN 05/25/21 08/22/21 08/21/21 History aspirin 81 mg chewable tablet 81 mg PO DAILY 05/25/21 08/22/21 08/21/21 History buspirone 7.5 mg tablet 1 tab PO BID 05/25/21 08/22/21 08/21/21 History fluticasone furoate 200 1 inh INHALATION BEDTIME 05/25/21 08/22/21 08/21/21 History mcg-vilanterol 25 mcg/dose inhalation powder (Breo Ellipta) oxybutynin chloride 15 mg 15 mg PO BID 05/25/21 08/22/21 08/21/21 History tablet,extended release 24 hr Physical Exam Vital Signs: Vital Signs: Last Vital Signs Temp 98.1 F 08/21/21 21:50 Pulse 84 08/22/21 10:08 Resp 17 08/22/21 06:04 BP 130/58 L 08/22/21 10:08 Pulse Ox 92 08/22/21 06:04 Oxygen Flow Rate 2 08/21/21 20:25 Body Mass Index 38.2 Neuro: Other: Alert and awake with normal spontaneity of speech fluency comprehension and affect. Pupils are round and reactive though right pupil is slightly larger than left. Extraocular muscles are intact. Visual field testing revealed left-sided visual extinction with double simultaneous stimulation. Face is symmetrical. Tongue is midline. There was no obvious focal arm or leg weakness. Plantars are equivocal. Results Labs CBC & Chem 7: 08/22/21 06:54 08/22/21 06:54 Labs: Short CBC 08/21/21 08/22/21 Range/Units 22:30 06:54 WBC 7.8 6.0 (4.8-10.8) X10*3/uL Hgb 11.1 L 10.9 L (12.0-16.0) g/dl Hct 35.0 L 34.6 L (37.0-47.0) % Plt Count 169 162 (160-400) X10*3/uL BMP 08/21/21 08/22/21 22:30 06:54 Sodium 144 144 Potassium 3.5 3.4 Chloride 105 106 Carbon Dioxide 32 H 32 H BUN 21 H 17 H Creatinine 0.84 0.82 Calcium 8.[address] revealed a right occipital hypodensity suggestive of recent infarct. CTA of brain and neck done with contrast did not reveal any enhancement in that area. CTA did not reveal any large vessel occlusion. Assessment and Plan (1) Cerebral infarction: Status: Acute 71 years old woman who presented to hospital after losing balance and falling. Her initial head CT revealed a right occipital or parietal occipital lesions suggestive of subacute infarct. CTA of brain and neck did not suggest any other pathology. Likely etiology of this infarct was cardiac source of embolism. Mainstay of management is prevention of further embolism with anticoagulation. Otherwise she has suffered from mild left visual field defect from this lesion. She has multifactorial gait disorder and balance problems for which she she use a walker. PT OT consultation is recommended Procedures Date of Service Date of Service: 08/22/21
--- NOTE | 2021-08-22 11:15 | MHC.CM.PN ---
Attempted to meet with patient in regards to discharge planning. Patient currently sleeping. Attempted to reach patient's daughter/HCP, Suzan via telephone at [phone]. Left message requesting return telephone call. Will attempt to meet patient again. Continue to monitor for d/c needs.
--- NOTE | 2021-08-22 19:21 | PC.NURSE ---
pt not accepting redirection. .she refused to allow t/w to see her arms to verify if she has an IV or not. pt wearing winter jacket refusing to allow t/w to touch her to remove the jacket or see her arms. Pt has been unplugging herself from her cafeteria monitor and O2 and ahs been walking into the nurses station. pt refuses to wear a mask. pt taking ER belongings including ambu bag and PPE. pt attempting to push recliner around the ER not accepting redirection, reporting she wants to recliner to go upstairs with her. pt refusing to go to her room.
--- NOTE | 2021-08-22 19:48 | MHC.CM.PN ---
Pt agitated and verbally abusive and upset with staff. CM unable to meet with patient at this time. Security present. CM to follow for d/c needs.
[2021-08-22] MEDS: LORazepam 2 MG/ML VIAL IM (19:56)
--- NOTE | 2021-08-22 20:19 | PC.NURSE ---
RN superviser aware, pt combative, swinging her O2 tubing at staff, she swung several times at multiple staff members and made other verbal threats. pt refusing to wear mask to transport to floor, refusing to put hre O2 on and refusing cardiac monitoring. IM Ativan administered in the L thigh.
--- NOTE | 2021-08-22 20:23 | PM.EVENT ---
Event Note Date of Service: 08/22/21 Event Note: Pt see/examined. Plan per H/P, Pt w/ subacute stroke. PT to STR when bed available.
[2021-08-22] MEDS: Atorvastatin Calcium 40 MG TABLET PO (21:00)
--- NOTE | 2021-08-22 22:54 | PC.NURSE ---
Pt arrived to unit via stretcher from ED. Pt initially refusing to cooperate with admission process, unable to compleat head to toe assessment. Pt confused, orientated to person. Hyperverbal and disorganized. Pt denies c/o pain. Pt arrives on no air, no observed resp distress. Pt accepting on tele, SR on monitor. Pt ambulating with RW.Medications given with encouragement, whole. Tolerated thin liquids. RN phone call with son, exception to come in and be with pt. Son currently with pt, pt conts to wonder in room, requiring redirection for safety and impulsive behaviors. 1:1 order obtained by provider.
[2021-08-23] VITALS (40 sets, daily range): BP systolic 83–166; BP diastolic 35–138; PULSE 63–106; RESP 10–23; TEMP 36.3–38.5; O2SAT 26–100; BMI 38.2
--- NOTE | 2021-08-23 | ECG_ITS ---
Test Reason : Rythme check Blood Pressure : / mmHG Vent. Rate : 073 BPM Atrial Rate : 062 BPM P-R Int : 164 ms QRS Dur : 164 ms QT Int : 474 ms P-R-T Axes : 011 -63 -33 degrees QTc Int : 522 ms Sinus rhythm with Premature atrial complexes Right bundle branch block Left anterior fascicular block Bifascicular block Minimal voltage criteria for LVH, may be normal variant ( R in aVL ) Abnormal ECG Heart rate has decreased Referred By: Brisa Walters Electronically Signed By:CHRISTOPHER SOSA MD
[2021-08-23] MEDS: LORazepam 0.5 MG TABLET PO (00:12)
[2021-08-23 01:16] LABS: Glucose, Whole Blood 144 mg/dL (60-115)
--- NOTE | 2021-08-23 01:46 | PM.EVENT ---
Event Note Date of Service: 09/05/21 Event Note: Rapid response note: Around 1:15 a.m. on 08/23/21 DEVELOPMENT ADMINISTRATOR was called in mentioned that patient is confused removed her oxygen saying she wants to to the [employer]; pt was saturating 70% and DEVELOPMENT ADMINISTRATOR was called in. per RN prior to this was was wandering in halls, not cooperating with care and received ativan in ER for possible sundowning. pt has 1:1observation placed for safety precautions. I went immediately to check on the patient when DEVELOPMENT ADMINISTRATOR called, patient was lying on the bed, on non-rebreather, not responding to verbal commands, pupils are mildly dilated but reactive, lung sounds are diminished, blood pressure noted to be 166/79, fingerstick glucose 140, oxygen saturations in 50s. Patient noted to be tachypneic, oxygenation not improving on 100% non-rebreather, extremities turning blue, immediately patient was started on Ambu bag with improvement in oxygenation; ER doctor Dr alatorre was called for intubation; ICU ROLANDO Brisa machado also at bedside; patient was intubated, and ICU team has taken the patient to CT head and CT chest. I spoke to Dr Ferrell in ICU and updated the events. pt was accepted to ICU. I called pt's Daughter- wyatt-> not reachable- left voice message with call back number.
[2021-08-23] MEDS: fentaNYL citrate/NS 1,000 MCG/100 ML PLAST..BAG 5 MCG IVCONT (02:00)
[2021-08-23] MEDS: propofoL 1,000 MG/100 ML VIAL 17.06 MG IVCONT ×3 (02:00→11:38)
[2021-08-23 02:14] LABS: VBG Base Excess 1.6 mmol/L; VBG HCO3 29 mmol/L (22-26); VBG pCO2 61 mmHg; VBG pH 7.28 (7.32-7.43); VBG pO2 250 mmHg
[2021-08-23 02:31] LABS: Venous Blood Gas Refer to POC result
--- NOTE | 2021-08-23 02:51 | W.PM.CCHP ---
Procedures Date of Service Date of Service: 08/23/21 Intubation Intubation Comments: Intubated by Dr Salvador, I was at the bedside. Consent for Procedure: Emergent-no informed consent obtained Time out performed: Yes Sedative: etomidate Mg given: 10 Laryngoscope: fiber optic video scope ET tube size: 7.5 ET tube uncuffed: Yes Tube secured depth (cm): 23 Tube secured location: lips Tube placement confirmation: visualized tube passing through cords, equal breath sounds bilaterally, no breath sounds over epigastrium and confirmation by capnometry Patient tolerated procedure: well and no complications Intubation complications: none
--- NOTE | 2021-08-23 02:53 | W.PM.CCHP ---
Procedures Date of Service Date of Service: 08/23/21 Central Line Placement Right IJ: Central Line Comments: venous access needed Consent for Procedure: Emergent-no informed consent obtained Time out performed: Yes Sterile Technique Used: Yes Patient placed on monitor/pulse ox: Yes MD prep: mask, gown and gloves Central line prep: Chlorhexidine scrub and sterile drapes applied Ultrasound used for placement: Yes Central line lumen inserted: triple Post procedure: sutured in place, good blood return, all ports aspirated, flushed, capped and sterile dressing applied Post procedure x-ray: tip of catheter in good position and no pneumothorax seen Patient tolerated procedure: well and no complications Complications: none
--- NOTE | 2021-08-23 02:55 | P.HPCC_ITS ---
History of Present Illness Date of Service: 08/23/21 Attending physician on admission: Jacob Ferrell Chief Complaint: AMS Patient is 71-year-old female with past medical history of atrial arrhythmia, bifascicular block, CHF, hypothyroidism, DHEERAJ, COPD, who presented to the ED on 08/22 with complaints of a fall.? 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 Patient reports that she just came from the rehab facility about 5 days ago, about a we ek ago at the rehab facility she also had worsening left leg numbness more than her usual, some weakness, no upper extremity weakness numbness or tingling, no difficulty with speech, no change in her vision. No neurological deficits per ED staff notes. Labs WBC 13.2, Hg 11.1, Hct 35.0, bicarb 32, BUN 26, Cr 0.74, BNP 1091, Covid negative. IV contrast-enhanced CT the head showed an Acute-subacute cortical and subcortical infarct within the right temporoparietal region. Focal cortical and subcortical hypodensity is present in the region of the right supramarginal and angular gyri in the right temporoparietal region. Neuro consult was appreciated, they stated the following conclusion in their note from 08/22, 71 years old woman who presented to hospital after losing balance and falling.? Her initial head CT revealed a right occipital or parietal occipital lesions suggestive of subacute infarct.? CTA of brain and neck did not suggest any other pathology.? Likely etiology of this infarct was cardiac source of embolism.? Mainstay of management is prevention of further embolism with anticoagulation.? Otherwise she has suffered from mild left visual field defect from this lesion.? She has multifactorial gait disorder and balance problems for which she she use a walker.? PT OT consultation is recommended. RUTH on 08/22 showed: - The left ventricular systolic function is normal.? - The calculated ejection fraction is 59%? - There is moderately increased left ventricular wall thickness. - There is moderate to severe aortic valve stenosis. ? - There is moderate mitral annular calcification.? There is mild to moderate mitral valve regurgitation.? - Moderate pulmonary hypertension is present.? - Small plaque is seen in the sino tubular ridge.?? Patient was boarding in the ED until late on the evening on 08/22 and was transferred to the floor early on 08/23. The RN in the ED stated pt was wandering in the halls, not cooperating with care and received ativan in ED for possible ing. pt has 1:1 observation placed for safety precautions. At approx 1am this morning, an WALLPAPER HANGER was called, the tech sitting with the patient stated that patient had become confused, removed her oxygen saying she wants to to the NEGATIVE TURNER. Upon arrival to the pt's room, she was obtunded, agonal breathing, her O2 sat was difficult to obtain but read <70% on 100% no nrebreather, BP 166/79, HR low 100's, POC 140,?lung sounds diminished, pupils equal at 7mm and reactive, bilateral hands and feet were dusky but warm. Pt was placed on ambubag with no minimal improvement in her oxygenation, up to the low 80's. Dr Salvador intubated the pt and she was brought to the CT scanner for head and chest CT. Head CT showed Redemonstration of the right parietal lobe infarct. No hemorrhagic conversion. No new abnormality. Chest CT showed Increased right lower lobe consolidation. This is concerning for pneumonia. Prominent mediastinal lymph nodes are likely reactive. There is also septal thickening with bronchial wall thickening. This may represent a component of edema. Mild emphysema. Chronic changes at the right basilar pleura. Endotracheal tube terminates 2 cm above the sheryl. Cardiomegaly. VBG done upon arrival to ICU, approx 45 mins post intubation was 7. 28/61/250/29/100 with base excess of 1.6, EKG showed no acute changes. TLC and broderick placed. Will repeat all labs. Dr Ferrell was notified by Dr Blue and is aware of assessment and plan. Review of Systems Review of Systems: Yes Unobtainable due to mental status PMFSH Past Medical History Medical History Atherosclerotic cardiovascular disease Atrial arrhythmia Bifascicular block Chronic diastolic (congestive) heart failure COPD (chronic obstructive pulmonary disease) COPD (chronic obstructive pulmonary disease) Enuresis Nonrheumatic aortic (valve) stenosis On home oxygen therapy DHEERAJ (obstructive sleep apnea) Respiratory failure with hypoxia and hypercapnia Thoracic aortic aneurysm (TAA) Urge incontinence Family History Family History Father No problems noted. Mother No problems noted. Surgical History Surgical History History of umbilical hernia repair Social History Social History Household Members: Children Housing: Apartment Housing Other:: lives alone - unsure if house or apt Do you presently have visiting nurse or other home services: No (unknown) Unable to assess alcohol history related to: Unknown Alcohol intake: never Patient Tobacco Use Status: Current everyday Tobacco user Advance Directives Date on File: 05/25/21 service: No Current occupational status: disabled Meds Allergies Allergy/AdvReac Type Severity Reaction Status Date / Time morphine [Morphine] Allergy Unknown UNKNOWN Verified 05/25/21 12:58 Active Medications: Current Medications Acetaminophen (Acetaminophen 325 Mg Tablet) 650 mg PO Q6H PRN PRN Reason: Pain, Mild (Pain Scale 1-3) Acetazolamide (Acetazolamide 250 Mg Tablet) 250 mg PO DAILY [facility] Last Admin: 08/22/21 09:16 Dose: 250 mg Documented by: Albuterol Sulfate (Albuterol Sulfate 90 Mcg 8 Gm Inhaler) 2 puff INHALE DAILY PRN PRN Reason: for dyspnea Albuterol/Ipratropium (Albuterol/Iprat 2.5/0.5mg 3 Ml Ampul.Neb) 3 ml INHALE Q6H PRN PRN Reason: Wheezing Aspirin (Aspirin 81 Mg Tab.Chew) 81 mg PO DAILY [facility] Last Admin: 08/22/21 09:15 Dose: 81 mg Documented by: Atorvastatin Calcium (Atorvastatin Calcium 40 Mg Tablet) 40 mg PO BEDTIME [facility] Last Admin: 08/22/21 21:00 Dose: 40 mg Documented by: Buspirone HCl (Buspirone Hcl 5 Mg Tablet) 7.5 mg PO BID [facility] Last Admin: 08/22/21 21:00 Dose: 7.5 mg Documented by: Chlorhexidine Gluconate (Chlorhexidine Gluc Oral Rinse 15 Ml Mouthwash) 15 ml BUCCAL TID [facility] Clonazepam (Clonazepam 0.5 Mg Tablet) 0.25 mg PO BEDTIME PRN PRN Reason: Sleep Dicyclomine HCl (Dicyclomine Hcl 10 Mg Capsule) 10 mg PO TIDWM [facility] Last Admin: 08/22/21 18:11 Dose: 10 mg Documented by: Diltiazem HCl (Diltiazem Hcl Cd 120 Mg Cap.Er.Deg) 120 mg PO BID [facility]; Protocol Last Admin: 08/22/21 21:00 Dose: 120 mg Documented by: Docusate Sodium (Docusate Sodium 100 Mg Capsule) 100 mg PO DAILY PRN PRN Reason: Constipation Enoxaparin Sodium (Enoxaparin Sodium 40 Mg/0.4 Ml Syringe) 40 mg SUBCUT Q24H [facility] Last Admin: 08/22/21 03:35 Dose: 40 mg Documented by: Fluticasone/Vilanterol (Fluticasone/Vilanterol 200/25 Blst.W.Dev) 1 puff INHALE BEDTIME [facility] Last Admin: 08/22/21 22:23 Dose: Not Given Documented by: Furosemide (Furosemide 20 Mg Tablet) 60 mg PO DAILY [facility]; Protocol Last Admin: 08/22/21 09:15 Dose: 60 mg Documented by: Guaifenesin (Guaifenesin La 600 Mg Tab.Er.12h) 600 mg PO BID [facility] Last Admin: 08/22/21 21:00 Dose: 600 mg Documented by: Fentanyl (Sublimaze/Ns) 1,000 mcg in 100 mls @ 0 mls/hr IVCONT .Q0M [facility]; Protocol Azithromycin 500 mg/ Sodium (Chloride) 250 mls @ 125 mls/hr IV Q24H [facility] Ceftriaxone Sodium 2 gm/ (Sodium Chloride) 50 mls @ 100 mls/hr IV Q24H [facility] Azithromycin 500 mg/ Sodium (Chloride) 250 mls @ 125 mls/hr IV NOW STA Stop: 08/23/21 04:50 Ceftriaxone Sodium 2 gm/ (Sodium Chloride) 50 mls @ 100 mls/hr IV NOW STA Stop: 08/23/21 03:20 Lactulose (Lactulose 20 Gm/30 Ml Solution) 10 gm PO BID PRN PRN Reason: Constipation Levothyroxine Sodium (Levothyroxine Sodium 175 Mcg Tablet) 175 mcg PO DAILY@0630 [facility] Last Admin: 08/22/21 09:16 Dose: 175 mcg Documented by: Mirabegron (Mirabegron 50 Mg Tab.Er.24h) 50 mg PO BID [facility] Last Admin: 08/22/21 21:00 Dose: Not Given Documented by: Naloxone HCl (Naloxone Hcl 0.4 Mg/Ml Vial) 0.2 mg IVPUSH Q2M PRN PRN Reason: Excessive sedation or RR < 8 Omeprazole (Omeprazole 20 Mg Capsule.) 20 mg PO DAILY@06 [facility] Last Admin: 08/22/21 06:44 Dose: 20 mg Documented by: Oxybutynin Chloride (Oxybutynin Chloride Er 5 Mg Tab.Er.24) 15 mg PO BID [facility] Last Admin: 08/22/21 21:00 Dose: 15 mg Documented by: Home Medications Medication Instructions Recorded Confirmed Last Taken Type atorvastatin 40 mg tablet 40 mg PO BEDTIME tab 08/19/20 08/22/21 08/21/21 History diltiazem HCl 120 mg 120 mg PO BID cap 08/19/20 08/22/21 08/21/21 History capsule,extended release 12 hr guaifenesin 600 mg tablet, 600 mg PO BID 08/30/20 08/22/21 08/21/21 History extended release 12 hr (Mucinex) ipratropium 0.5 mg-albuterol 3 mg 3 ml INHALATION Q6H PRN 08/30/20 08/22/21 08/21/21 History (2.5 mg base)/3 mL nebulization soln clonazepam 0.5 mg tablet 0.25 mg PO BEDTIME PRN tab 10/04/20 08/22/21 08/21/21 History dicyclomine 10 mg capsule 10 mg PO TIDWM cap 10/04/20 08/22/21 08/21/21 History levothyroxine 175 mcg tablet 175 mcg PO DAILY@0630 tab 10/04/20 08/22/21 08/21/21 History omeprazole 20 mg capsule,delayed 20 mg PO DAILY cap 10/04/20 08/22/21 08/21/21 History release lactulose 10 gram/15 mL oral 15 ml PO BID PRN 10/25/20 08/22/21 08/21/21 History solution furosemide 20 mg tablet 60 mg PO DAILY tab 11/30/20 08/22/21 08/21/21 History cyanocobalamin (vitamin B-12) 1,000 mcg IM Q30D 03/31/21 08/22/21 08/21/21 History 1,000 mcg/mL injection solution gabapentin 300 mg capsule 300 mg PO BEDTIME 03/31/21 08/22/21 08/21/21 History acetaminophen 325 mg tablet 650 mg PO Q4H PRN 05/25/21 08/22/21 08/21/21 History aspirin 81 mg chewable tablet 81 mg PO DAILY 05/25/21 08/22/21 08/21/21 History buspirone 7.5 mg tablet 1 tab PO BID 05/25/21 08/22/21 08/21/21 History fluticasone furoate 200 1 inh INHALATION BEDTIME 05/25/21 08/22/21 08/21/21 History mcg-vilanterol 25 mcg/dose inhalation powder (Breo Ellipta) oxybutynin chloride 15 mg 15 mg PO BID 05/25/21 08/22/21 08/21/21 History tablet,extended release 24 hr Physical Exam Vital Signs: Vital Signs: Last Vital Signs Temp 98.4 F 08/22/21 23:25 Pulse 76 08/23/21 02:14 Resp 18 08/23/21 02:14 BP 86/42 L 08/23/21 02:14 Pulse Ox 95 08/23/21 02:44 Oxygen Flow Rate 2 08/21/21 20:25 Body Mass Index 38.2 Const: Other: Upon arrival to ICU, pt intubated and sedated HENMT: Head: Yes normal to inspection, Yes No palpable skull fracture present, Yes normocephalic and Yes atraumatic General nose exam: Normal external nose present Face and sinus: Yes ecchymosis (2cm round area on right side/bridge of nose) Teeth and gingiva: edentulous Eyes: General: appearance normal, both eyes and all related structures Pupils: Equal, round and reactive pupils present and Pupil size comments bilaterally 4 Neck: Neck: Yes normal visual inspection, Yes trachea midline and Yes no JVD Resp: Auscultation: rhonchi and diminished lung sounds Cardio: Jugular venous distension: no JVD Rate: Other (irregular rate) Rhythm: abnormal rhythm irregularly irregular Heart sounds: normal S1 and S2 Peripheral pulses: Peripheral pulses 2+ throughout GI: Inspection: Yes obesity and Yes visible herniation Palpation (GI): Soft to palpation and nontender Skin: General skin exam: no rashes or lesions noted Neuro: Cranial nerves: Yes Equal, round and reactive pupils present Extrem: Other: 1+ pitting edema b/l LE Results Labs CBC and Chem 7: 08/23/21 03:50 08/22/21 06:54 Labs: Laboratory Results - last 24 hr 08/22/21 08/22/21 08/23/21 06:54 06:54 01:13 MCV 98.0 MCH 30.9 MCHC 31.5 RDW 13.1 Plt Count 162 MPV 9.9 Immature Gran % (Auto) 0.2 Neut % (Auto) 60.5 Lymph % (Auto) 22.0 [place] % (Auto) 13.2 H Eos % (Auto) 3.3 Baso % (Auto) 0.8 Lymph # (Auto) 1.3 [place] # (Auto) 0.8 Eos # (Auto) 0.2 Baso # (Auto) 0.1 Abs Immat Gran (auto) 0.01 Absolute Neuts (auto) 3.6 Absolute Nucleated RBC 0.000 Nucleated RBC % (auto) 0.0 VBG pH VBG pCO2 VBG pO2 VBG HCO3 VBG O2 Saturation VBG Base Excess Anion Gap 9 L Estim Creat Clear Calc 68.5 Estimated GFR > 60 POC Glucose 144 H Random Glucose 107 Calcium 8.5 08/23/21 02:08 MCV MCH MCHC RDW Plt Count MPV Immature Gran % (Auto) Neut % (Auto) Lymph % (Auto) [place] % (Auto) Eos % (Auto) Baso % (Auto) Lymph # (Auto) [place] # (Auto) Eos # (Auto) Baso # (Auto) Abs Immat Gran (auto) Absolute Neuts (auto) Absolute Nucleated RBC Nucleated RBC % (auto) VBG pH 7.28 L VBG pCO2 61 VBG pO2 250 VBG HCO3 29 H VBG O2 Saturation 100.0 VBG Base Excess 1.6 Anion Gap Estim Creat Clear Calc Estimated GFR POC Glucose Random Glucose Calcium Imaging Radiologist's Impressions: Impressions Head CT 08/23/21 01:46 IMPRESSION: Redemonstration of the right parietal lobe infarct. No hemorrhagic conversion. No new abnormality. Chest CT 08/23/21 01:50 IMPRESSION: Increased right lower lobe consolidation. This is concerning for pneumonia. Prominent mediastinal lymph nodes are likely reactive. There is also septal thickening with bronchial wall thickening. This may represent a component of edema. Mild emphysema. Chronic changes at the right basilar pleura. Endotracheal tube terminates 2 cm above the sheryl. Cardiomegaly. Assessment and Plan (1) Acute CVA (cerebrovascular accident): Status: Acute Neuro consult appreciated, will update on current status (2) Fall: Qualifiers: Encounter type: initial encounter Qualified Code(s): W19.XXXA - Unspecified fall, initial encounter Status: Acute (3) Acute on chronic diastolic (congestive) heart failure: Status: Acute RUTH performed 08/22, BNP elevated 1091, monitor (4) Acute on chronic respiratory failure with hypoxia and hypercapnia: Status: Acute Pt currently intubated, monitor VBG's (5) CAP (community acquired pneumonia): Qualifiers: Laterality: unspecified laterality Qualified Code(s): J18.9 - Pneumonia, unspecified organism Status: Acute Continue azithromycin and ceftriaxone (6) COPD (chronic obstructive pulmonary disease): Status: Acute continue inhalers and nebulizers (7) Atrial arrhythmia: Status: Acute Continue home meds, diltiazam
--- NOTE | 2021-08-23 02:59 | PC.NURSE ---
PATIENT SEEN ON ROUNDS, 1:1 SITTER AT BEDSIDE PATIENT IS CONFUSED, IMPULSIVE, GETTING OOB, AND RESISTIVE TO ALL CARE AND SAFETY CUEING. PT ALSO VERY LOUD AND AND DIFFICULTY ASSESSING PATIENTS NEEDS. DENIED PAIN, HEADACHE, STOMACH ACHE, NAUSEA, BEING THIRSTY, OR HUNGRY. PATIENT WAS COOPERATIVE TO TAKING PO ATIVAN TAB IN PUDDING TO TRY AND RELIEVE HER ANXIETY AT 0015,SWALLOWED WITHOUT ANY DIFFICULTY. VITALS 131/79-96-19-98.4 TO START AND OXYGEN SATS RANGING FROM MID 80'S TO 91 IF ABLE TO LEAVE O2 CANNULA IN PLACE. APPROXIMATELY 0108 CALLED TO ROOM BY SITTER AT BEDSIDE SAYING SHE DOESN'T LOOK GOOD AND SATS DROPPING. PT NOTED QUIET NOW, LYING BACK IN BED, PALE, RR 24, SAT LEVEL 60'S. RN CO WORKER RAN FOR O2 MASK,O2 INCREASED TO 100% NON REBREATHER AND EXTERNAL GRINDER TENDER CALLED OVERHEAD, SAT READING LOW 30 AND TEAM IMMEDIATELY WENT TO WORK ON PATIENT. HOSPITALIST AT BEDSIDE,NURSING GAS AND OIL CHECKER,AND THE ED MD DUE TO RESP DISTRESS PATIENT WAS INTUBATED AND TRANSFERRED ICU. BLOOD SUGAR LEVEL CHECKED AT BEGINNING OF CALL AND RESULTS 144. BP ELEVATED AT 166/99. PATIENT TRANSPORTED T0 ICU UNIT APPROXIMATELY 0140. STRAIGHT CUTTER UPDATED AND SHE WILL NOTIFY FAMILY.
[2021-08-23] MEDS: cefTRIAXone sodium 2 GM in 0.9 % Sodium Chloride 50 ML IV (03:49)
[2021-08-23] MEDS: Azithromycin 500 MG in 0.9 % Sodium Chloride 250 ML 125 MG IV (03:50)
[2021-08-23] MEDS: Enoxaparin Sodium 40 MG/0.4 ML SYRINGE SUBCUT (03:50)
[2021-08-23 03:57] LABS: MANUAL DIFF FLAG NO
[2021-08-23 03:58] LABS: Basophils Percent Auto 0.3 % (0-2); Eosinophils Absolute Auto 0.1 X10*3/uL (0.0-0.4); Eosinophils Percent Auto 0.7 % (0-4); Hematocrit 33.3 % (37.0-47.0); Hemoglobin 10.4 g/dl (12.0-16.0); Imm Gran Abs Auto 0.09 X10*3/uL (0.00-0.03); Imm Gran Pct Auto 0.7 % (0.0-0.4); Lymphocytes Percent Auto 7.4 % (20-40); Mean Corpuscular HGB Conc 31.2 g/dl (31.0-35.0); Mean Corpuscular Hemoglobin 30.8 pg (27.0-33.0); Mean Corpuscular Volume 98.5 fL (80.0-98.0); Mean Platelet Volume 9.4 fL (9.4-12.3); Monocytes Absolute Auto 1.4 X10*3/uL (0.1-1.2); Monocytes Percent Auto 9.9 % (2-11); Neutrophils Absolute Auto 11.1 x10*3/uL (2.0-8.3); Platelet Count 166 X10*3/uL (160-400); Red Blood Count 3.38 X10*6/uL (4.20-5.50); Red Cell Distribution Width 13.1 % (11.0-16.0); White Blood Count 13.7 X10*3/uL (4.8-10.8)
[2021-08-23 04:06] LABS: Ammonia 38 umol/L (13-55)
[2021-08-23 04:09] LABS: Calcium 8.7 mg/dL (8.4-10.2)
[2021-08-23 04:22] LABS: B Type Natriuretic Peptide 1032 pg/mL (<100)
[2021-08-23 04:23] LABS: Cholesterol 119 mg/dL; HDL Cholesterol 47 mg/dL; LDL Cholesterol Calculated 60 mg/dl; Triglycerides 63 mg/dL
[2021-08-23 04:31] LABS: Alanine Aminotransferase 39 U/L (0-31); Albumin Level 3.6 g/dL (3.5-5.0); Alkaline Phosphatase 105 U/L (39-117); Anion Gap 8 (12-20); Aspartate Amino Transferase 56 U/L (5-31); Bilirubin Total 1.2 mg/dL (0.0-1.0); Blood Urea Nitrogen 22 mg/dL (9-16); Calcium 8.6 mg/dL (8.4-10.2); Carbon Dioxide 33 mmol/L (22-29); Chloride 105 mmol/L (96-108); Estimated Glomerular Filt Rate > 60; Glucose Random 121 mg/dL (60-115); Magnesium 2.4 mg/dL (1.6-2.6); Phosphorus 5.4 mg/dL (2.7-4.5); Potassium 3.5 mmol/L (3.3-5.1); Sodium 142 mmol/L (135-145); Total Protein 5.8 g/dL (6.5-8.0)
[2021-08-23 04:36] LABS: TSH reflex Free T4 0.43 uIU/mL (0.32-4.0)
[2021-08-23] MEDS: Levothyroxine Sodium 175 MCG TABLET PO (05:00)
[2021-08-23] MEDS: Furosemide 40 MG/4 ML VIAL IVPUSH (05:00)
[2021-08-23] MEDS: Pantoprazole Sodium 40 MG/10 ML VIAL IVPUSH (05:36)
[2021-08-23 05:44] LABS: VBG Base Excess 7.3 mmol/L; VBG HCO3 33 mmol/L (22-26); VBG pCO2 52 mmHg; VBG pH 7.41 (7.32-7.43); VBG pO2 47 mmHg
--- NOTE | 2021-08-23 06:28 | PC.NURSE ---
Received patient as transfer to [facility] @ approx 0157 - patient already intubated - CT pending. Patient settled on vent, AC settings (see vent assessment), started on Fentanyl drip, propofol drip. BP dropped, levophed started. Stanford & OG tube inserted as well. TLC right IJ inserted at approx 0220. CXR done and confirmed placement of OG tube, TLC, & ETT - Liliya MUNOZ ok'ed use of TLC. Patient tolerating vent settings. EKG done & viewed by PA. VBG's repeated post intubation & this morning. 40mg IVP lasix given per Liliya MUNOZ - also, abx ordered and given as well. 625 ml output of urine after lasix given.
[2021-08-23 06:45] LABS: Amphetamine Screen Urine Not Detected (Not Detect); Barbiturates, Urine Not Detected (Not Detect); Benzodiazepines Screen Urine Not Detected (Not Detect); Cannabinoid Screen Urine Not Detected (Not Detect); Cocaine Screen Urine Not Detected (Not Detect); Fentanyl, urine POSITIVE (Not Detect); Opiate Screen Urine Not Detected (Not Detect); Phencyclidine Screen Urine Not Detected (Not Detect)
[2021-08-23] MEDS: Mirabegron 50 MG TAB.ER.24H PO (08:33)
[2021-08-23] MEDS: acetaZOLAMIDE 250 MG TABLET PO (08:33)
[2021-08-23] MEDS: Dicyclomine HCl 10 MG CAPSULE PO ×3 (08:33→16:35)
[2021-08-23] MEDS: Furosemide 20 MG TABLET 60 MG PO (08:33)
[2021-08-23] MEDS: busPIRone HCl 5 MG TABLET 7.5 MG PO ×2 (08:33→21:42)
[2021-08-23] MEDS: Aspirin 81 MG TAB.CHEW PO (08:33)
[2021-08-23] MEDS: Chlorhexidine Gluc Oral Rinse 15 ML MOUTHWASH BUCCAL ×3 (08:33→21:41)
[2021-08-23 09:20] LABS: Venous Blood Gas Refer to POC result
[2021-08-23] MEDS: dilTIAZem HCL 60 MG TABLET G-TUBE (10:09)
[2021-08-23 11:04] LABS: VBG Base Excess 8.7 mmol/L; VBG HCO3 36 mmol/L (22-26); VBG pCO2 65 mmHg; VBG pH 7.35 (7.32-7.43); VBG pO2 52 mmHg
--- NOTE | 2021-08-23 13:10 | MHC.CM.PN ---
Pt is presently intubated in ICU and unable to participate in CM assessment: Information obtained from EMR review and phone call to pt's HCP, dtr Suzan. Pt had been at [facility] since May 2021 and was d/c'd to home with [facility], [facility] services on 08/18. Pt shares her home with her son who assists in some of her care needs. She uses a walker and other adaptive equipment set up for home by [facility]. Explained to dtr that pt's functional abilities are not known but there is a high liklihood that she'll need post CVA STR. Re-referred to [facility]: HCP on file, IMM addendum completed and in chart. CM to follow for updated d/c planning information
[2021-08-23] MEDS: dilTIAZem HCL 60 MG TABLET OG-TUBE ×3 (14:01→21:41)
[2021-08-23] MEDS: acetaZOLAMIDE sodium 500 MG VIAL IVPUSH ×2 (14:01→21:41)
[2021-08-23 15:55] LABS: Anion Gap 10 (12-20); Blood Urea Nitrogen 16 mg/dL (9-16); Calcium 7.9 mg/dL (8.4-10.2); Carbon Dioxide 34 mmol/L (22-29); Chloride 104 mmol/L (96-108); Creatinine Clr Calc Pharmacy 73.9; Estimated Glomerular Filt Rate > 60; Glucose Random 109 mg/dL (60-115); Potassium 3.3 mmol/L (3.3-5.1); Sodium 145 mmol/L (135-145)
[2021-08-23 16:05] LABS: Troponin-I High Sensitivity 170.2 ng/L (<3.5-17.0)
[2021-08-23 16:13] LABS: Lactic Acid 0.4 mmol/L (0.5-2.0)
[2021-08-23] MEDS: Potassium Chloride Packet 20 MEQ PACKET 40 MEQ OG-TUBE ×2 (16:36→21:40)
[2021-08-23 17:08] LABS: D Dimer 308 NG/ML
--- NOTE | 2021-08-23 17:39 | PM.CCPN ---
Subjective Subjective Date of Service: 08/23/21 Interval History: Mrs. Maradiaga was transferred ICU early this morning with acute respiratory failure after being intubated on the IMC. The patient is well known to me from a previous admission to the ICU this past May.? She is a 71-year-old female with PMHx of obesity, irreparable ventral hernia(s) s/p previous repair attempt, ongoing smoker, DHEERAJ, chronic oxygen-dependent COPD with CO2 retention, moderate aortic stenosis, diastolic congestive heart failure, atrial arrhythmia, bifascicular block, thoracic aortic aneurysm, hyperlipidemia, anxiety, B12 deficiency, irritable bowel syndrome, GERD, and hypothyroidism.? She?s on 2L NC at home and she?s had consistently elevated serum bicarbonate level since Aug, 2020.? She currently takes Diamox at home. Last ECHOCARDIOGRAM done just yesterday showed moderately LVH w normal systolic function and grade 2 diastolic dysfunction; RV cavity size and systolic function were normal; the atria were moderate to severely dilated; there was moderate to severe with gradients 43/27 mm and calculated valve area of 0.89 cm2; there was usfh-nd-cslrkron MR; there was mild TR, with RV SP estimate 56 mm; and the IVC was dilated with > 50% inspiratory collapse.? This was all pretty much unchanged from April.? [facility] records indicate that her BNPs were running 150-300 from 2017 until this past May.? Since then, her BNP has been climbing up to the 1000 range.? She takes Lasix 60mg daily. The patient lives alone, had just returned home from rehab 4 days prior to the current admission. ?She is a current tobacco user.? No alcohol or drugs.? Ambulates with a walker.? Her son Desmond is her healthcare proxy (cell [phone]; home [phone]). The Patient was BIBA to the ED Sunday night (Aug 21) after a mechanical fall.? No LOC.? Head CT showed a new large area of density in the right parietal-temporal lobe concerning for an acute territorial infarction.? Exam on admission showed normal mental status, with no neurological deficits.? The patient was admitted and started on aspirin and statin. The patient was seen by Dr. Sharma the next day (yesterday).? In his opinion, the right parietal lesion was suggestive of a subacute infarct, likely secondary to a cardiac source of embolism.? He recommended anticoagulation.? Echo done that day showed no LV thrombus. Patient was boarding in the ED until late on the evening on 08/22 and was transferred to the floor early on 08/23. The RN in the ED stated pt was wandering in the halls, not cooperating with care and received ativan in ED for possible . ?The patient had 1:1 observation placed for safety precautions. At approx 1am this morning, an BUSINESS ENTERPRISE OFFICER was called.? The sitter reported that the patient had become confused, removed her oxygen saying she wants to . ?Upon arrival of the hospitalist, the patient was obtunded with agonal breathing, and cyanotic.? SpO2 read ? 50?s on 100% nonrebreather, BP 166/79, HR low 100's, POC 140, lung sounds diminished, pupils equal at 7mm and reactive, bilateral hands and feet were dusky but warm. ?Ambubag ventilation was begun with improvement in her oxygenation only up to the low 80's. ?Dr Salvador intubated the trachea and the patient was taken to head CT to r/o further stroke. Head CT was read by the radiologist as showing Redemonstration of the right parietal lobe infarct. No hemorrhagic conversion. No new abnormality. ? It seems to me that the CT shows greater density of the right parietal stroke area, suggestive of progressive encephalomalacia.? Chest CT done at the same time showed underlying chronic lung disease with emphysema, and a small area of consolidation with air bronchograms in the right lower lobe. ?She also has marked cardiomegaly. It was noted that prior to the episode this morning, the patient had been given oral Ativan in the ED, followed by a dose of 2 mg Ativan IM. A central line was placed on arrival to the ICU. ?VBG showed 7.28/61/+1.? Sats were 95% after the FiO2 was reduced to 40%. ?CXR showed no clear airspace consolidation and overall showed much better aeration than her CXR from 05/25/21. ?Labs showed a bump in her white count 13, a mild bump in her renal indices, mild bump in her LFTs.? Her BNP was 1032 (unchanged from May).? EKG showed no ischemic changes.? The patient was given ceftriaxone and Zithromax.? She required low dose Levophed. This morning she was sedated on medium dose propofol and fentanyl.? We turned the fentanyl off.? She is nontoxic appearing, albeit non interactive.? On an AC rate down to 10, she was breathing at a RR of 18, with ETCO2 58.? CVBG showed 7.35/65/+8.? We then switched her to PSV.? On PSV 7/30%/+5, RR was high teens, Vt high 300?s, Sat mid-high 90?s, ETCO2 49.? HR is averaging about 80, SR with very frequent PACs.? BP 115/59 on Levophed 0.04ug.? Bedside US (echo) of her IVC showed about 1.5 cm with about 25% insp collapse.? After a 250cc bolus of 1/2NS, BP rober to 130/74.? Tmax is 101.3 degrees this afternoon.? There is no jugular venous distention with the head of bed about 30 degrees.? Chest is clear to auscultation, with a normal expiratory phase.? Heart rate and rhythm are very regular, with normal-sounding S1 and S2.? She has a 2/6 mid-peaking systolic ejection murmur.? Abdomen shows a large midline ventral hernia, at least softball sized, with about a golf-ball sized hard, mobile mass of undetermined etiology caudal to it (unchanged from May).? She has minimal central edema.? She has at least 2+ pitting pretibial edema, with the left leg slightly larger than the right (unchanged from May). LABORATORY DATA:? As above.? In addition, repeat BMP at 15:00 this afternoon shows BUN and creatinine down to 16/0.7, lactic acid is 0.4, and troponin is 170. Bedside ECHOCARDIOGRAM by me to r/o PE:? Image quality:? Fair.? Findings: 1. At least mild LVH 2. Probably normal LV fxn.? No gross regional wall motion abnormalities noted. 3. RV cavity size looks enlarged to me, with RV:LV cavity ratio 1:1 4. 2+ TR by color alie, with CWD envelope measuring 3.0 m/sec, indicating a gradient of 36mm. 5. IVC measured 1.6 cm with 25% insp collapse.? CVP estimate 8-10 cm.? RVSP estimate 44-46 mm. IMPRESSION: 1. Tobacco abuse. 2. End-stage COPD with chronic CO2 retention, secondary to above.? She is on Diamox 250 mg po daily at home.? We?ll bump that up to 500 mg IV tid for now, until her BE get down towards zero. 3. Subacute right parietal stroke.? I discussed this with Dr. Sharma at length.? Given the lack of any occlusive atherosclerosis on this CT angiogram, in his opinion the location of the stroke is most suggestive of an embolic phenomenon.? That is why he recommended anticoagulation.? Unfortunately, anticoagulation would have significant risk in this patient, given her history of falls and her history of altered mental status and obtundation secondary to CO2 retention.? After further discussion about that with Dr. Sharma, he recommends current treatment with just aspirin and DVT prophylaxis dose anticoagulation, then further follow-up in the office in 2 weeks, whereupon re-evaluation a decision about anticoagulation could be made at that time. 4. Episode of acute unresponsiveness this morning with near respiratory arrest.? The nature of that episode early this morning is entirely unclear.? Two possibilities are immediately apparent:? Patient was given a significant dose of benzodiazepine.? That on top of CO2 retention could have precipitated further hypercarbic respiratory failure and CO2 narcosis.? Hypoxemia precipitated by that and the patient pulling off her oxygen mask because of altered mental status could have led to the described episode.? Another obvious possibility is pulmonary embolism.? The latter would seem unlikely given the absence of a hemodynamic deterioration at the time, and there recovery of her level of oxygenation at the current moment to what is likely her baseline.? None the less, I am concerned because my echo now almost certainly shows an enlarged RV cavity, although the RVSP estimate is actually lower than it was on yesterday's echo.? We will get a D-dimer now.? If the D-dimer is high she?ll have to go for CTPA. 5. Possible right lower lobe aspiration pneumonia.? Her oxygenation is currently probably at her baseline, suggesting that the right lower lobe infiltrate on CT scan is of minimal clinical significance.? Nonetheless, we will continue treatment with ceftriaxone (as good an antibiotic for aspiration as anything else). 6. Acute on chronic hypoxemic and hypercarbic respiratory failure. ?Secondary to above.? She appears close to being extubated below.? Controlling her agitation will be the hoff.? We may need to employ Precedex pre- +/- post-extubation. 7. Undoubtedly has RHF, plus chronic congestive heart failure.? She is currently on Lasix 60 mg po daily.? I will drop that down to 40 mg daily.? Follow her renal indices and BNP. 8. History of DHEERAJ.? Her head and neck habitus are highly suggestive.? She should wear CPAP at night. 9. Moderate-severe aortic stenosis by echo and by physical exam.? Question is, how much is that contributing to her CHF, and at what point would consideration of a TAVR be warranted.? Dr. Page saw her in May, and felt that no intervention for her valve was indicated at that time. 10. Thoracic aortic aneurysm.? As far as I know, this has not been addressed. 11. Metabolic alkalosis.? Secondary to end-stage COPD, along with diuresis.? We?ve upped her dose of Diamox. 12. Large ventral hernia.? The patient was seen in consultation in May by Dr. Foster.? She wrote that the patient has a known recurrent incisional hernia and a known seroma of her lower abdominal wall.? The patient is not a surgical candidate at this time. ADDENDUM:? D-dimer is 308, which is well within normal for her age.? No need for CT angio. ?I will consider pulmonary embolism to have ruled out. Critical care time (including extensive chart review and hospital course summary, and multiple visits to the bedside for attempted extubation): ?120+ minutes. Critical Care Time (minutes): 120 Physical Exam Vital Signs: Vital Signs: Last Vital Signs Temp 101.1 F H 08/23/21 16:00 Pulse 98 08/23/21 16:35 Resp 18 08/23/21 16:00 BP 112/57 L 08/23/21 16:35 Pulse Ox 94 08/23/21 16:00 Oxygen Flow Rate 2 08/21/21 20:25 Body Mass Index 38.2 Objective Data Labs CBC & Chem 7: 08/23/21 03:50 08/23/21 15:25 Labs: Laboratory Results - last 24 hr 08/23/21 08/23/21 08/23/21 01:13 02:08 03:50 WBC RBC Hgb Hct MCV MCH MCHC RDW Plt Count MPV Immature Gran % (Auto) Neut % (Auto) Lymph % (Auto) [place] % (Auto) Eos % (Auto) Baso % (Auto) Lymph # (Auto) [place] # (Auto) Eos # (Auto) Baso # (Auto) Abs Immat Gran (auto) Absolute Neuts (auto) Absolute Nucleated RBC Nucleated RBC % (auto) D-Dimer VBG pH 7.28 L VBG pCO2 61 VBG pO2 250 VBG HCO3 29 H VBG O2 Saturation 100.0 VBG Base Excess 1.6 Sodium Potassium Chloride Carbon Dioxide Anion Gap BUN Creatinine Estim Creat Clear Calc Estimated GFR POC Glucose 144 H Random Glucose Lactic Acid Calcium Phosphorus Magnesium Total Bilirubin AST ALT Alkaline Phosphatase Ammonia Troponin I High Sens B-Natriuretic Peptide Total Protein Albumin Triglycerides 63 Cholesterol 119 LDL Cholesterol, Calc 60 HDL Cholesterol 47 TSH Urine Opiates Screen Urine Fentanyl Screen Ur Barbiturates Screen Ur Phencyclidine Scrn Ur Amphetamines Screen U Benzodiazepines Scrn Urine Cocaine Screen U Marijuana (THC) Screen 08/23/21 08/23/21 08/23/21 03:50 03:50 03:50 WBC 13.7 H RBC 3.38 L Hgb 10.4 L Hct 33.3 L MCV 98.5 H MCH 30.8 MCHC 31.2 RDW 13.1 Plt Count 166 MPV 9.4 Immature Gran % (Auto) 0.7 H Neut % (Auto) 81.0 H Lymph % (Auto) 7.4 L [place] % (Auto) 9.9 Eos % (Auto) 0.7 Baso % (Auto) 0.3 Lymph # (Auto) 1.0 L [place] # (Auto) 1.4 H Eos # (Auto) 0.1 Baso # (Auto) 0.0 Abs Immat Gran (auto) 0.09 H Absolute Neuts (auto) 11.1 H Absolute Nucleated RBC 0.000 Nucleated RBC % (auto) 0.0 D-Dimer VBG pH VBG pCO2 VBG pO2 VBG HCO3 VBG O2 Saturation VBG Base Excess Sodium 142 Potassium 3.5 Chloride 105 Carbon Dioxide 33 H Anion Gap 8 L BUN 22 H Creatinine 0.92 Estim Creat Clear Calc 61.0 Estimated GFR > 60 POC Glucose Random Glucose 121 H Lactic Acid Calcium 8.6 Phosphorus 5.4 H Magnesium 2.4 Total Bilirubin 1.2 H AST 56 H ALT 39 H Alkaline Phosphatase 105 Ammonia 38 Troponin I High Sens B-Natriuretic Peptide Total Protein 5.8 L Albumin 3.6 Triglycerides Cholesterol LDL Cholesterol, Calc HDL Cholesterol TSH Urine Opiates Screen Urine Fentanyl Screen Ur Barbiturates Screen Ur Phencyclidine Scrn Ur Amphetamines Screen U Benzodiazepines Scrn Urine Cocaine Screen U Marijuana (THC) Screen 08/23/21 08/23/21 08/23/21 03:50 03:50 03:50 WBC RBC Hgb Hct MCV MCH MCHC RDW Plt Count MPV Immature Gran % (Auto) Neut % (Auto) Lymph % (Auto) [place] % (Auto) Eos % (Auto) Baso % (Auto) Lymph # (Auto) [place] # (Auto) Eos # (Auto) Baso # (Auto) Abs Immat Gran (auto) Absolute Neuts (auto) Absolute Nucleated RBC Nucleated RBC % (auto) D-Dimer VBG pH VBG pCO2 VBG pO2 VBG HCO3 VBG O2 Saturation VBG Base Excess Sodium Potassium Chloride Carbon Dioxide Anion Gap BUN Creatinine Estim Creat Clear Calc Estimated GFR POC Glucose Random Glucose Lactic Acid Calcium 8.7 Phosphorus Magnesium Total Bilirubin AST ALT Alkaline Phosphatase Ammonia Troponin I High Sens B-Natriuretic Peptide 1032 H Total Protein Albumin Triglycerides Cholesterol LDL Cholesterol, Calc HDL Cholesterol TSH 0.43 Urine Opiates Screen Urine Fentanyl Screen Ur Barbiturates Screen Ur Phencyclidine Scrn Ur Amphetamines Screen U Benzodiazepines Scrn Urine Cocaine Screen U Marijuana (THC) Screen 08/23/21 08/23/21 08/23/21 05:39 06:09 10:58 WBC RBC Hgb Hct MCV MCH MCHC RDW Plt Count MPV Immature Gran % (Auto) Neut % (Auto) Lymph % (Auto) [place] % (Auto) Eos % (Auto) Baso % (Auto) Lymph # (Auto) [place] # (Auto) Eos # (Auto) Baso # (Auto) Abs Immat Gran (auto) Absolute Neuts (auto) Absolute Nucleated RBC Nucleated RBC % (auto) D-Dimer VBG pH 7.41 7.35 VBG pCO2 52 65 VBG pO2 47 52 VBG HCO3 33 H 36 H VBG O2 Saturation 78.0 80.0 VBG Base Excess 7.3 8.7 Sodium Potassium Chloride Carbon Dioxide Anion Gap BUN Creatinine Estim Creat Clear Calc Estimated GFR POC Glucose Random Glucose Lactic Acid Calcium Phosphorus Magnesium Total Bilirubin AST ALT Alkaline Phosphatase Ammonia Troponin I High Sens B-Natriuretic Peptide Total Protein Albumin Triglycerides Cholesterol LDL Cholesterol, Calc HDL Cholesterol TSH Urine Opiates Screen Not Detected Urine Fentanyl Screen POSITIVE H Ur Barbiturates Screen Not Detected Ur Phencyclidine Scrn Not Detected Ur Amphetamines Screen Not Detected U Benzodiazepines Scrn Not Detected Urine Cocaine Screen Not Detected U Marijuana (THC) Screen Not Detected 08/23/21 08/23/21 08/23/21 15:21 15:25 15:52 WBC RBC Hgb Hct MCV MCH MCHC RDW Plt Count MPV Immature Gran % (Auto) Neut % (Auto) Lymph % (Auto) [place] % (Auto) Eos % (Auto) Baso % (Auto) Lymph # (Auto) [place] # (Auto) Eos # (Auto) Baso # (Auto) Abs Immat Gran (auto) Absolute Neuts (auto) Absolute Nucleated RBC Nucleated RBC % (auto) D-Dimer VBG pH VBG pCO2 VBG pO2 VBG HCO3 VBG O2 Saturation VBG Base Excess Sodium 145 Potassium 3.3 Chloride 104 Carbon Dioxide 34 H Anion Gap 10 L BUN 16 Creatinine 0.76 Estim Creat Clear Calc 73.9 Estimated GFR > 60 POC Glucose Random Glucose 109 Lactic Acid 0.4 L Calcium 7.9 L D Phosphorus Magnesium Total Bilirubin AST ALT Alkaline Phosphatase Ammonia Troponin I High Sens 170.2 H* D B-Natriuretic Peptide Total Protein Albumin Triglycerides Cholesterol LDL Cholesterol, Calc HDL Cholesterol TSH Urine Opiates Screen Urine Fentanyl Screen Ur Barbiturates Screen Ur Phencyclidine Scrn Ur Amphetamines Screen U Benzodiazepines Scrn Urine Cocaine Screen U Marijuana (THC) Screen 08/23/21 16:48 WBC RBC Hgb Hct MCV MCH MCHC RDW Plt Count MPV Immature Gran % (Auto) Neut % (Auto) Lymph % (Auto) [place] % (Auto) Eos % (Auto) Baso % (Auto) Lymph # (Auto) [place] # (Auto) Eos # (Auto) Baso # (Auto) Abs Immat Gran (auto) Absolute Neuts (auto) Absolute Nucleated RBC Nucleated RBC % (auto) D-Dimer 308 VBG pH VBG pCO2 VBG pO2 VBG HCO3 VBG O2 Saturation VBG Base Excess Sodium Potassium Chloride Carbon Dioxide Anion Gap BUN Creatinine Estim Creat Clear Calc Estimated GFR POC Glucose Random Glucose Lactic Acid Calcium Phosphorus Magnesium Total Bilirubin AST ALT Alkaline Phosphatase Ammonia Troponin I High Sens B-Natriuretic Peptide Total Protein Albumin Triglycerides Cholesterol LDL Cholesterol, Calc HDL Cholesterol TSH Urine Opiates Screen Urine Fentanyl Screen Ur Barbiturates Screen Ur Phencyclidine Scrn Ur Amphetamines Screen U Benzodiazepines Scrn Urine Cocaine Screen U Marijuana (THC) Screen Quality Stroke Does the patient have a stroke diagnosis?: No VTE Prior VTE?: No VTE Risk Level:: Medical - moderate - high VTE Device Contraindication: Treatment Not Indicated VTE Drug Contraindication: N/A - Med Ordered Critical Care Time Critical Care Time (minutes): 120
[2021-08-23] MEDS: propofoL 1,000 MG/100 ML VIAL 11.38 MG IVCONT (17:46)
[2021-08-23 18:13] LABS: Venous Blood Gas Refer to POC result
[2021-08-23 19:34] LABS: Troponin-I High Sensitivity 162.8 ng/L (<3.5-17.0)
[2021-08-23] MEDS: cefTRIAXone sodium 1 GM in 0.9 % Sodium Chloride 50 ML IV (21:41)
[2021-08-23] MEDS: Atorvastatin Calcium 40 MG TABLET PO (21:41)
[2021-08-24] VITALS (35 sets, daily range): BP systolic 87–146; BP diastolic 45–95; PULSE 68–111; RESP 14–30; TEMP 37.3–37.8; O2SAT 90–97
[2021-08-24] MEDS: Enoxaparin Sodium 40 MG/0.4 ML SYRINGE SUBCUT (01:11)
[2021-08-24] MEDS: propofoL 1,000 MG/100 ML VIAL 11.38 MG IVCONT (02:55)
[2021-08-24 05:42] LABS: VBG HCO3 31 mmol/L (22-26); VBG pCO2 57 mmHg; VBG pH 7.35 (7.32-7.43); VBG pO2 60 mmHg
[2021-08-24 05:51] LABS: Hematocrit 33.5 % (37.0-47.0); Hemoglobin 10.3 g/dl (12.0-16.0); Mean Corpuscular HGB Conc 30.7 g/dl (31.0-35.0); Mean Corpuscular Hemoglobin 30.6 pg (27.0-33.0); Mean Corpuscular Volume 99.4 fL (80.0-98.0); Mean Platelet Volume 10.1 fL (9.4-12.3); Platelet Count 163 X10*3/uL (160-400); Red Blood Count 3.37 X10*6/uL (4.20-5.50); Red Cell Distribution Width 13.1 % (11.0-16.0); White Blood Count 10.3 X10*3/uL (4.8-10.8)
[2021-08-24] MEDS: Pantoprazole Sodium 40 MG/10 ML VIAL IVPUSH (05:51)
[2021-08-24] MEDS: Levothyroxine Sodium 175 MCG TABLET PO (05:51)
[2021-08-24 06:11] LABS: Alanine Aminotransferase 48 U/L (0-31); Albumin Level 3.4 g/dL (3.5-5.0); Alkaline Phosphatase 104 U/L (39-117); Anion Gap 9 (12-20); Aspartate Amino Transferase 46 U/L (5-31); Bilirubin Total 0.9 mg/dL (0.0-1.0); Blood Urea Nitrogen 15 mg/dL (9-16); Calcium 8.1 mg/dL (8.4-10.2); Carbon Dioxide 31 mmol/L (22-29); Chloride 107 mmol/L (96-108); Creatinine Clr Calc Pharmacy 74.9; Estimated Glomerular Filt Rate > 60; Glucose Random 94 mg/dL (60-115); Magnesium 2.2 mg/dL (1.6-2.6); Phosphorus 3.9 mg/dL (2.7-4.5); Potassium 3.7 mmol/L (3.3-5.1); Sodium 143 mmol/L (135-145); Total Protein 5.5 g/dL (6.5-8.0)
[2021-08-24 06:12] LABS: Venous Blood Gas Refer to POC result
--- NOTE | 2021-08-24 07:22 | PC.NURSE ---
Shift eval 7p-7a: Patient tolerated Pressure support overnight - PS 10, peep 5, FIO2 40%. Min vol averaging 6-6.3 - RR 15-22. O2sat mid 90's. In-line suctioning small amt cream / pink tinged secretions. Patient reactive to tactile stimuli, does not follow directions. Temp down to 99.3. Repos Q2h. Sedated w/ propofol (see MAR).
[2021-08-24] MEDS: Aspirin 81 MG TAB.CHEW PO (07:41)
[2021-08-24] MEDS: Dicyclomine HCl 10 MG CAPSULE PO ×3 (07:41→17:50)
[2021-08-24] MEDS: dilTIAZem HCL 60 MG TABLET OG-TUBE ×3 (07:41→17:49)
[2021-08-24] MEDS: busPIRone HCl 5 MG TABLET 7.5 MG PO (07:41)
[2021-08-24] MEDS: Chlorhexidine Gluc Oral Rinse 15 ML MOUTHWASH BUCCAL ×2 (07:42→16:20)
[2021-08-24] MEDS: acetaZOLAMIDE sodium 500 MG VIAL IVPUSH ×3 (07:42→21:05)
[2021-08-24] MEDS: Furosemide 40 MG TABLET PO (07:42)
[2021-08-24 08:48] LABS: Procalcitonin 0.27 ng/mL
--- NOTE | 2021-08-24 09:55 | MHC.CLN ---
Addendum entered by Toshia Burnett RD 08/24/21 11:46: AGREE WITH PROVIDER'S ASSESSMENT BELOW WITH ADDITION: DAY 2 NPO Original Note: F/U PT IS INTUBATED AND SEDATED, ATTEMPT TO EXTUBATE TODAY PER MD IF EXTUBATION SUCCESSFUL: RECOMMEND 2 GM NA DIET IF EXTUBATION UNSUCCESSFUL: RECOMMEND TUBE FEEDING PROMOTE AT GOAL RATE OF 50 ML/HOUR TO PROVIDE 1200 KCALS (1500 KCALS WITH SEDATION), 75 GRAMS PROTEIN, AND 1006 CC FREE WATER FROM FORMULA MONITOR DIET ADVANCEMENT
[2021-08-24] MEDS: dexmedeTOMIDidine HCL/NS 400 MCG/100 ML INFUS..BTL 23.7 MCG IVCONT (10:10)
--- NOTE | 2021-08-24 17:48 | P.PNCC_ITS ---
Subjective Subjective Date of Service: 08/24/21 Interval History: Mrs. Maradiaga was transferred ICU early yesterday morning (Aug 23) with acute respiratory failure after being intubated on the C. The patient is well known to me from a previous admission to the ICU this past May.? She is a 71-year-old female with PMHx of obesity, irreparable ventral hernia(s) s/p previous repair attempt, ongoing smoker, DHEERAJ, chronic oxygen- dependent COPD with CO2 retention, moderate aortic stenosis, diastolic congestive heart failure, atrial arrhythmia, bifascicular block, thoracic aortic aneurysm, hyperlipidemia, anxiety, B12 deficiency, irritable bowel syndrome, GERD, and hypothyroidism.? She?s on 2L NC at home and she?s had consistently elevated serum bicarbonate level since Aug, 2020.? She currently takes Diamox at home. Last ECHOCARDIOGRAM done on Aug 22 showed moderately LVH w normal systolic function and grade 2 diastolic dysfunction; RV cavity size and systolic function were normal; the atria were moderate to severely dilated; there was moderate to severe with gradients 43/27 mm and calculated valve area of 0.89 cm2; there was dnlo-xl-zlulfwaa MR; there was mild TR, with RV SP estimate 56 mm; and the IVC was dilated with > 50% inspiratory collapse.? This was all pretty much unchanged from April.? [facility] records indicate that her BNPs were running 150- 300 from 2017 until this past May.? Since then, her BNP has been climbing up to the 1000 range.? She takes Lasix 60mg daily. The patient lives alone, had just returned home from rehab 4 days prior to the current admission. ?She is a current tobacco user.? No alcohol or drugs.? Ambulates with a walker.? Her son Desmond is her healthcare proxy (cell [phone]; home [phone]). HISTORY OF PRESENT ILLNESS: The Patient was BIBA to the ED Sunday night Aug 21 after a mechanical fall.? No LOC.? Head CT showed a new large area of density in the right parietal- temporal lobe concerning for an acute territorial infarction.? Exam on admission showed normal mental status, with no neurological deficits.? The patient was admitted and started on aspirin and statin. The patient was seen by Dr. Sharma the next day.? In his opinion, the right parietal lesion was suggestive of a subacute infarct, likely secondary to a cardiac source of embolism (see more below).? He recommended anticoagulation.? Echo done that day (as per above) showed no LV thrombus. The patient was boarding in the ED until late on the evening on 08/22 and was transferred to the floor early on 08/23. The RN in the ED stated pt was wandering in the halls, not cooperating with care and received ativan in ED for possible ing. At approx 1am yesterday (Aug 23), an MACHINE CLOTH EXAMINER was called.? The sitter reported that the patient had become confused, removed her oxygen saying she wants to . ?It was noted that prior to that episode, the patient had been given oral Ativan in the ED, followed by a dose of 2 mg Ativan IM. Upon arrival of the hospitalist, the patient was obtunded with agonal breathing, and cyanotic.? SpO2 read ? 50?s on 100% nonrebreather, BP 166/79, HR low 100's, POC 140, lung sounds diminished, pupils equal at 7mm and reactive, extremities were cyanotic. ?Ambu bag ventilation was begun with improvement in her oxygenation only up to the low 80's. ?Dr Salvador intubated the trachea and the patient was taken to head CT to r/o further stroke. Head CT was read by the radiologist as showing the right parietal lobe infarct; there was no hemorrhagic conversion and no new abnormality. ? By my reading, the CT shows greater density of the right parietal stroke area, suggestive of progressive encephalomalacia.? Chest CT done at the same time showed underlying chronic lung disease with emphysema, and a small area of consolidation with air bronchograms in the right lower lobe. ?She also had marked cardiomegaly. A central line was placed on arrival to the ICU.? VBG showed 7.28/61/+1.? Sats were 95% after the FiO2 was reduced to 40%. ?CXR showed no clear airspace consolidation and overall showed much better aeration than her CXR from 05/25/21. ?Labs showed a bump in her white count to 13, a mild bump in her renal indices, and mild bump in her LFTs.? Her BNP was 1032 (unchanged from May).? EKG showed no ischemic changes.? The patient was given ceftriaxone and Zithromax.? She required low dose Levophed. Yesterday, she was sedated on medium dose propofol.? We were able to get her switched over to PSV with 30% FiO2.? But we weren?t able to get her cooperative enough with a stable enough resp pattern to extubate.? D-dimer was 308, for all practical purposes ruling out pulmonary embolism. ?She stayed on PSV overnight. Bedside ECHOCARDIOGRAM yesterday to r/o PE was notable for: 1. At least mild LVH 2. Probably normal LV fxn.? No gross regional wall motion abnormalities noted. 3. RV cavity size looks enlarged to me, with RV:LV cavity ratio 1:1 4. 2+ TR by color alie, with CWD envelope measuring 3.0 m/sec, indicating a gradient of 36mm. 5. IVC measured 1.6 cm with 25% insp collapse.? CVP estimate 8-10 cm.? RVSP estimate 44-46 mm. CVBG this morning on pressure support ventilation showed 7.35/57/+5 (PvCO2 down from 65 yest).? We switched the propofol to Precedex.? But on the Precedex at 0.5ug, we were unable to get her awake and cooperative enough, so that was shut off too.? After about 4-5 hours, she was arousable and cooperative this evening, and appropriately responsive with a vigorous nod of the head.? On PSV 7/30/+5, respiratory rate was 19, Vt 400 cc, Ve 7.4 L, ETCO2 42, Sat 95%. ?She was extubated without incident.? Post extubation she was screaming that she wants to get out of here. ?After 2 hrs, she was much more calm, sat?ing 97% on 2L NC.? RR 16-18.? HR 74, SR w freq PACs.? BP 116/67 on no pressors.? No JVD with the head of bed about 30 degrees.? Chest is clear to auscultation, with a normal expiratory phase.? Heart rate and rhythm are very irregular, with normal- sounding S1 and S2.? She has a 2/6 mid-peaking systolic ejection murmur.? Abdomen shows a large midline ventral hernia, at least softball sized, with about a golf-ball sized hard, mobile mass caudal to it (a seroma, according to Dr. Foster; unchanged from May).? She has minimal central edema.? She has 1+ pitting pretibial edema, about half as much as yesterday after diuresis, with the left leg slightly larger than the right (unchanged from May). LABORATORY DATA:? As below.? Notably, white count is down to 10. ?Renal indices steady, despite the diuresis.? PCT 0.2. IMPRESSION: 1. Tobacco abuse. 2. End-stage COPD with chronic CO2 retention, secondary to above.? She is on Diamox 250 mg po daily at home.? We bumped that up to 500 mg IV tid yesterday.? I?ll cut that to bid today. 3. Subacute right parietal stroke.? I discussed this with Dr. Sharma at length.? Given the lack of any occlusive atherosclerosis on her CT angiogram, in his opinion the location of the stroke is most suggestive of an embolic phenomenon. ?That is why he recommended anticoagulation.? Unfortunately, anticoagulation would have significant risk in this patient, given her history of falls and her history of altered mental status and obtundation secondary to CO2 retention.? After further discussion with Dr. Sharma, he recommended treatment for now with just aspirin and DVT prophylaxis-dose anticoagulation, then further follow-up in the office in 2 weeks, whereupon re-evaluation about anticoagulation could be made at that time. 4. Episode of acute unresponsiveness yesterday morning with near respiratory arrest.? The nature of that episode is unclear.? Two possibilities: ?The patient was given a significant dose of benzodiazepine.? That, on top of CO2 retention, could have precipitated further hypercarbic respiratory failure and CO2 narcosis.? Hypoxemia precipitated by that and the patient pulling off her oxygen mask because of altered mental status could have led to the described episode.? Another obvious possibility is pulmonary embolism.? The latter would seem unlikely given the absence of a hemodynamic deterioration at the time, plus the recovery of oxygen requirement to what is likely her baseline.? Furthermore, the echo and DDimer were not suggestive.? I do not feel that further w/u for PE is warranted. 5. Possible right lower lobe aspiration pneumonia.? Her oxygenation is currently probably at her baseline, suggesting that the right lower lobe infiltrate on CT scan is of minimal clinical significance.? Nonetheless, I wrote her for ceftriaxone for 5 days.? Given her COPD, I will switch that to Zithromax 500 mg IV daily for another 3 days. 6. Acute on chronic hypoxemic and hypercarbic respiratory failure. ?Secondary to above. 7. Undoubtedly has RHF, plus chronic congestive heart failure.? She is on Lasix 60 mg po daily at home.? I cut that to 40 mg daily.? Her edema is much less today.? Following her renal indices and BNP. 8. History of DHEERAJ.? Her head and neck habitus are highly suggestive.? She should wear CPAP at night. 9. Moderate-severe aortic stenosis by echo and by physical exam.? Question is, how much is that contributing to her CHF, and at what point would consideration of a TAVR be warranted.? Dr. Page saw her in May, and felt that no intervention for her valve was indicated at that time. 10. H/o thoracic aortic aneurysm.? Should be addressed as an outpatient. 11. Metabolic alkalosis.? Secondary to end-stage COPD, along with diuresis.? We?ve upped her dose of Diamox. 12. Large ventral hernia.? The patient was seen in consultation in May by Dr. Foster.? She wrote that the patient ?has a known recurrent incisional hernia and a known seroma of her lower abdominal wall?.? The patient is not a s urgical candidate at this time. Critical care time (including multiple visits to the bedside for attempted extubation):? 70+ minutes. Critical Care Time (minutes): 70 Physical Exam Vital Signs: Vital Signs: Last Vital Signs Temp 99.7 F 08/24/21 17:00 Pulse 80 08/24/21 17:00 Resp 18 08/24/21 17:00 BP 125/69 08/24/21 17:00 Pulse Ox 95 08/24/21 17:00 Oxygen Flow Rate 2 08/21/21 20:25 Body Mass Index 38.2 Objective Data Labs CBC & Chem 7: 08/24/21 05:34 08/24/21 05:34 Labs: Laboratory Results - last 24 hr 08/23/21 08/24/21 08/24/21 18:51 05:34 05:34 WBC 10.3 RBC 3.37 L Hgb 10.3 L Hct 33.5 L MCV 99.4 H MCH 30.6 MCHC 30.7 L RDW 13.1 Plt Count 163 MPV 10.1 Absolute Nucleated RBC 0.000 Nucleated RBC % (auto) 0.0 VBG pH VBG pCO2 VBG pO2 VBG HCO3 VBG O2 Saturation VBG Base Excess Sodium 143 Potassium 3.7 Chloride 107 Carbon Dioxide 31 H Anion Gap 9 L BUN 15 Creatinine 0.75 Estim Creat Clear Calc 74.9 Estimated GFR > 60 Random Glucose 94 Calcium 8.1 L Phosphorus 3.9 Magnesium 2.2 Total Bilirubin 0.9 AST 46 H ALT 48 H Alkaline Phosphatase 104 Troponin I High Sens 162.8 H* Total Protein 5.5 L Albumin 3.4 L Procalcitonin 08/24/21 08/24/21 05:34 05:36 WBC RBC Hgb Hct MCV MCH MCHC RDW Plt Count MPV Absolute Nucleated RBC Nucleated RBC % (auto) VBG pH 7.35 VBG pCO2 57 VBG pO2 60 VBG HCO3 31 H VBG O2 Saturation 87.0 VBG Base Excess 5.0 Sodium Potassium Chloride Carbon Dioxide Anion Gap BUN Creatinine Estim Creat Clear Calc Estimated GFR Random Glucose Calcium Phosphorus Magnesium Total Bilirubin AST ALT Alkaline Phosphatase Troponin I High Sens Total Protein Albumin Procalcitonin 0.27 Microbiology Microbiology Results: Microbiology 08/23/21 15:24 Sputum - Suctioned Gram Stain - Final 08/23/21 15:24 Sputum - Suctioned Sputum Culture - Preliminary Quality Stroke Does the patient have a stroke diagnosis?: No VTE Prior VTE?: No VTE Risk Level:: Medical - moderate - high VTE Device Contraindication: Treatment Not Indicated VTE Drug Contraindication: N/A - Med Ordered Critical Care Time Critical Care Time (minutes): 60
--- NOTE | 2021-08-24 18:36 | PC.NURSE ---
PROPOFOL GTT TURNED OFF AT 1010. PRECEDEX GTT AND LEVOPHED GTT STARTED BRIEFLY AND TURNED OFF AT 1222. SEE EMAR. PATIENT BEGAN TO FOLLOW COMMANDS AT 1730. BEDSIDE TO ASSESS. EXTUBATED TO 1755 ON 2L SEJAL WISE, CURRENT 02 95-97%. LARGE, BLOODY SECRETIONS CAME OUT WITH THE ETT. PATIENT YELLING AND TELLING PEOPLE TO LEAVE HER ALONE. I'LL CALL THE FIRE DEPARTMENT. REFUSES TO ANSWER ANY QUESTIONS. RESTRAINTS REMAIN IN PLACE AT THIS TIME FOR AIRWAY SAFETY.
[2021-08-24] MEDS: cefTRIAXone sodium 1 GM in 0.9 % Sodium Chloride 50 ML IV (21:05)
[2021-08-25] VITALS (16 sets, daily range): BP systolic 117–152; BP diastolic 60–92; PULSE 66–123; RESP 17–29; TEMP 36.1–38.1; O2SAT 90–96
[2021-08-25 01:16] LABS: VBG Base Excess 0.4 mmol/L; VBG HCO3 25 mmol/L (22-26); VBG pCO2 41 mmHg; VBG pH 7.38 (7.32-7.43); VBG pO2 63 mmHg
[2021-08-25 02:50] LABS: Venous Blood Gas Refer to POC result
[2021-08-25] MEDS: Enoxaparin Sodium 40 MG/0.4 ML SYRINGE SUBCUT (02:59)
--- NOTE | 2021-08-25 04:16 | PC.NURSE ---
CARE ASSUMED 23:15..AWAKE..ZUNIGA...AGITATED..DISORIENTED TO PLACE/EVENTS...ATTEMPTS TO CLIMB OOB...YELLS GET ME OFF THIS DAMN TRAIN ... I'M GOING OUTSIDE .. LEAVE ME THE FUCK ALONE ...RESISTANT TO CARE...O2 2 L/M..SAO2 92-93%...SAO2 86% WHEN PULLS OFF O2...ATRIAL FIB TO NSR WITH FREQUENT ATRIAL ECTOPY..JUAREZ DRAINING YELLOW URINE..BP STABLE
[2021-08-25 05:43] LABS: Hematocrit 33.5 % (37.0-47.0); Hemoglobin 10.4 g/dl (12.0-16.0); Mean Corpuscular Hemoglobin 30.6 pg (27.0-33.0); Mean Corpuscular Volume 98.5 fL (80.0-98.0); Mean Platelet Volume 10.1 fL (9.4-12.3); Platelet Count 162 X10*3/uL (160-400); Red Cell Distribution Width 12.8 % (11.0-16.0); White Blood Count 8.3 X10*3/uL (4.8-10.8)
[2021-08-25 05:45] LABS: VBG HCO3 25 mmol/L (22-26); VBG pCO2 44 mmHg; VBG pH 7.36 (7.32-7.43); VBG pO2 54 mmHg
[2021-08-25] MEDS: Pantoprazole Sodium 40 MG/10 ML VIAL IVPUSH (06:00)
[2021-08-25 06:12] LABS: Anion Gap 13 (12-20); Blood Urea Nitrogen 11 mg/dL (9-16); Carbon Dioxide 19 mmol/L (22-29); Chloride 115 mmol/L (96-108); Creatinine Clr Calc Pharmacy 90.6; Estimated Glomerular Filt Rate > 60; Glucose Random 71 mg/dL (60-115); Magnesium 1.9 mg/dL (1.6-2.6); Phosphorus 2.9 mg/dL (2.7-4.5); Potassium 3.1 mmol/L (3.3-5.1); Sodium 144 mmol/L (135-145)
[2021-08-25 06:15] LABS: B Type Natriuretic Peptide 762 pg/mL (<100)
[2021-08-25] MEDS: Aspirin 81 MG TAB.CHEW PO (07:24)
[2021-08-25] MEDS: Mirabegron 50 MG TAB.ER.24H PO ×2 (07:24→19:25)
[2021-08-25] MEDS: acetaZOLAMIDE sodium 500 MG VIAL IVPUSH (07:24)
[2021-08-25] MEDS: Furosemide 40 MG TABLET PO (07:25)
[2021-08-25] MEDS: Dicyclomine HCl 10 MG CAPSULE PO ×2 (07:25→18:47)
[2021-08-25] MEDS: busPIRone HCl 5 MG TABLET 7.5 MG PO ×2 (07:25→19:22)
[2021-08-25] MEDS: dilTIAZem HCL 60 MG TABLET OG-TUBE ×3 (07:25→22:37)
[2021-08-25] MEDS: Azithromycin 500 MG in 0.9 % Sodium Chloride 250 ML 125 MG IV (07:31)
[2021-08-25 09:35] LABS: Venous Blood Gas Refer to POC result
--- NOTE | 2021-08-25 09:42 | MHC.CLN ---
Addendum entered by Toshia Burnett RD 08/25/21 11:40: AGREE WITH PROVIDER'S ASSESSMENT BELOW Original Note: F/U PT IS EXTUBATED PT IS DAY 3 NPO MD ORDERED SPEECH BEDSIDE SWALLOW EVAL RECOMMEND 2 GM NA DIET IN ADDITION TO SPEECH RECOMMENDATIONS MONITOR DIET ADVANCEMENT
--- NOTE | 2021-08-25 12:38 | MHC.SL.SWA ---
Speech Pathologist Impression: Risk of Aspiration Oralpharyngeal Dysphagia Risk of Aspiration Due to: Neurological Condition Dysphasia Diet Status: Upgrade Liquid Consistency and Strategies for Safe Swallow: Liquid Intake Recommendation: [place] Thick Liquid Intake Strategies: Small Sips Solid Food Consistency: Dietary Recommendations: Pureed (NDD1) Additional Modifications to Solid Foods: Follow bites of puree with sips of recommended consistency liquid Oral Medication Intake: Crushed with Puree Compensatory Strategies and Precautions to be Taken for Safe Swallow: Sitting Upright (90 deg) No Straw Liquids from Cup Small Bites and Sips Alternate Liquids/Solids Supervision While Eating and Drinking for Safe Swallow: Total Supervision (1:1) Foods to Avoid: Swallowing Recommended Treatments: Recommendation for Speech: Inpatient Speech Therapy Comment: Pt required full assist from RN, HADOOP JAVA DEVELOPER to be positioned seated up right in chair. Pt is oppositional, at times verbally combative, has difficulty following directions due to behaviors and moderate to severe dementia. Pt presents with delay of oral phase of swallow on all consistencies and mild delay initiating swallow on all consistencies. Recommend start on Puree diet, with progression as appropriate on re-eval. Frequency/Duration: Speech Therapy to follow daily, M-F during inpatient stay Date Range for Service Req: Timeline to reassess: Musical Instrument Maker Clinican/Clinical Fellow: No Supervisory Statement: I have reviewed and agree with the student/clinical fellow's documentation: Speech Language Pathologist: Tamiko Guzman M.A., CCC-ASSISTANT INVENTORY MANAGER
--- NOTE | 2021-08-25 13:09 | HO.PM.IMPN ---
Subjective Subjective Date of Service: 08/25/21 Interval History: cc: fall interval history: agitated, wants to go home Review of Systems Review of Systems: Yes Unobtainable due to mental condition Physical Exam Vital Signs: Vital Signs: Last Vital Signs Temp 97 F 08/25/21 11:21 Pulse 110 H 08/25/21 11:21 Resp 22 H 08/25/21 11:21 BP 132/64 08/25/21 11:21 Pulse Ox 93 08/25/21 11:21 Oxygen Flow Rate 2 08/21/21 20:25 Body Mass Index 38.2 General: AO X 1, agitated Resp: diminshed, no accessory muscles used CVS: S1,S2,RRR, murmur GI: soft, non tender, non distended Neuro: no obvious defecits Psych: agitated, impaired insight Objective Data Active Medications Acetaminophen (Acetaminophen 325 Mg Tablet) 650 mg PO Q6H PRN PRN Reason: Pain, Mild (Pain Scale 1-3) Acetazolamide (Acetazolamide Sodium 500 Mg Vial) 500 mg IVPUSH BID [facility] Last Admin: 08/25/21 07:24 Dose: 500 mg Documented by: JANET Albuterol Sulfate (Albuterol Sulfate 90 Mcg 8 Gm Inhaler) 2 puff INHALE DAILY PRN PRN Reason: for dyspnea Albuterol/Ipratropium (Albuterol/Iprat 2.5/0.5mg 3 Ml Ampul.Neb) 3 ml INHALE Q6H PRN PRN Reason: Wheezing Aspirin (Aspirin 81 Mg Tab.Chew) 81 mg PO DAILY [facility] Last Admin: 08/25/21 07:24 Dose: 81 mg Documented by: JANET Atorvastatin Calcium (Atorvastatin Calcium 40 Mg Tablet) 40 mg PO BEDTIME [facility] Last Admin: 08/24/21 20:07 Dose: Not Given Documented by: MARIA INES Non-Admin Reason: NPO Buspirone HCl (Buspirone Hcl 5 Mg Tablet) 7.5 mg PO BID [facility] Last Admin: 08/25/21 07:25 Dose: 7.5 mg Documented by: JANET Clonazepam (Clonazepam 0.5 Mg Tablet) 0.25 mg PO BEDTIME PRN PRN Reason: Sleep Dicyclomine HCl (Dicyclomine Hcl 10 Mg Capsule) 10 mg PO TIDWM [facility] Last Admin: 08/25/21 12:55 Dose: Not Given Documented by: AMBER Non-Admin Reason: refused Diltiazem HCl (Diltiazem Hcl 60 Mg Tablet) 60 mg OG-TUBE QID [facility]; Protocol Last Admin: 08/25/21 12:55 Dose: Not Given Documented by: AMBER Non-Admin Reason: refused Docusate Sodium (Docusate Sodium 100 Mg Capsule) 100 mg PO DAILY PRN PRN Reason: Constipation Enoxaparin Sodium (Enoxaparin Sodium 40 Mg/0.4 Ml Syringe) 40 mg SUBCUT Q24H [facility] Last Admin: 08/25/21 02:59 Dose: 40 mg Documented by: SENDY Fluticasone/Vilanterol (Fluticasone/Vilanterol 200/25 Blst.W.Dev) 1 puff INHALE BEDTIME [facility] Last Admin: 08/24/21 20:22 Dose: Not Given Documented by: BEN Non-Admin Reason: Patient Refused Furosemide (Furosemide 40 Mg Tablet) 40 mg PO DAILY [facility]; Protocol Last Admin: 08/25/21 07:25 Dose: 40 mg Documented by: JANET Azithromycin 500 mg/ Sodium (Chloride) 250 mls @ 125 mls/hr IV Q24H [facility] Stop: 08/28/21 08:59 Last Infusion: 08/25/21 09:40 Dose: 0 mls/hr Documented by: JANET Ceftriaxone Sodium 1 gm/ (Sodium Chloride) 50 mls @ 100 mls/hr IV Q24H [facility] Lactulose (Lactulose 20 Gm/30 Ml Solution) 10 gm PO BID PRN PRN Reason: Constipation Levothyroxine Sodium (Levothyroxine Sodium 175 Mcg Tablet) 175 mcg PO DAILY@0630 [facility] Last Admin: 08/25/21 05:59 Dose: Not Given Documented by: SENDY Non-Admin Reason: Patient Refused Mirabegron (Mirabegron 50 Mg Tab.Er.24h) 50 mg PO BID [facility] Last Admin: 08/25/21 07:24 Dose: 50 mg Documented by: JANET Oxybutynin Chloride (Oxybutynin Chloride Er 5 Mg Tab.Er.24) 15 mg PO BID [facility] Last Admin: 08/25/21 07:24 Dose: 15 mg Documented by: JANET Labs CBC & Chem 7: 08/25/21 05:30 08/25/21 05:30 Labs: Laboratory Results - last 24 hr 08/25/21 08/25/21 08/25/21 01:11 05:30 05:30 MCV 98.5 H MCH 30.6 MCHC 31.0 RDW 12.8 Plt Count 162 MPV 10.1 Absolute Nucleated RBC 0.000 Nucleated RBC % (auto) 0.0 VBG pH 7.38 VBG pCO2 41 VBG pO2 63 VBG HCO3 25 VBG O2 Saturation 90.0 VBG Base Excess 0.4 Anion Gap 13 Estim Creat Clear Calc 90.6 Estimated GFR > 60 Random Glucose 71 Calcium 7.0 L D Phosphorus 2.9 Magnesium 1.9 B-Natriuretic Peptide 08/25/21 08/25/21 05:30 05:39 MCV MCH MCHC RDW Plt Count MPV Absolute Nucleated RBC Nucleated RBC % (auto) VBG pH 7.36 VBG pCO2 44 VBG pO2 54 VBG HCO3 25 VBG O2 Saturation 84.0 VBG Base Excess 0.0 Anion Gap Estim Creat Clear Calc Estimated GFR Random Glucose Calcium Phosphorus Magnesium B-Natriuretic Peptide 762 H Microbiology Microbiology Results: Microbiology 08/23/21 15:24 Gram Stain - Final Sputum - Suctioned Sputum Culture - Final Assessment and Plan (1) Cerebral infarction: Status: Acute (2) Acute on chronic respiratory failure with hypoxia and hypercapnia: Status: Acute Assessment and Plan: 71-year-old female who was admitted August 23 for subacute CVA after fall. Course was then complicated by agitation followed by acute on chronic hypoxic and hypercapnic respiratory failure requiring intubation. Patient was eventually extubated in ICU and has been stable on 2 L nasal cannula. She was downgraded to medical floor overnight. Subacute right parietal CVA Source suspected to be cardioembolic, however, was determined the patient's risk for anticoagulation or her the benefits and will be treated with antiplatelet and statin Further decision about anticoagulation will be revisited in the future Acute on chronic hypoxic and hypercapnic respiratory failure Extubated successfully Possibly due to CO2 retention Chronic hypoxic respiratory failure secondary to COPD Continue inhalers Chronic diastolic CHF with right-sided heart failure and moderate to severe aortic stenosis Continue Lasix Hypothyroid Synthroid Alkalosis, now with acidosis Hold Diamox Monitor Quality Stroke Does the patient have a stroke diagnosis?: No VTE Prior VTE?: No VTE Risk Level:: Medical - moderate - high VTE Device Contraindication: Treatment Not Indicated VTE Drug Contraindication: N/A - Med Ordered
--- NOTE | 2021-08-25 13:26 | PC.NURSE ---
patient verbally abusive and demanding to get out of chair. Needing constant redirection. For safety, after discussing with fractionation plant supervisor, moved patient to [id number] with a sitter. Report given to Sera ROSAS
[2021-08-25] MEDS: Atorvastatin Calcium 40 MG TABLET PO (19:26)
--- NOTE | 2021-08-25 21:20 | PC.NURSE ---
patient aitated pulling out TLC and Stanford cath. RN spoke with DR Moreau regarding the TLC removal . per DR. Cervantes ; remove TLC. Stanford cath removed as per policy. TLC to the right IJ was removed by Duyen ROSAS . Pt tolerated the central line removal . Oxygen saturation mid 90's on room air. Pt refused peripheral IV
[2021-08-25] MEDS: cefTRIAXone sodium 1 GM in 0.9 % Sodium Chloride 50 ML IV (22:37)
[2021-08-26] VITALS (8 sets, daily range): BP systolic 103–142; BP diastolic 56–74; PULSE 61–93; RESP 18–20; TEMP 36.1–36.7; O2SAT 91–97
[2021-08-26] MEDS: Levothyroxine Sodium 175 MCG TABLET PO (07:18)
--- NOTE | 2021-08-26 07:29 | PC.NURSE ---
through shift 11P-7A pt refused lovenox injection, confused initially then this am more lucid. states she knows she had a stroke. educated on lovenox actions, asked pt again this am if she would accept injection - continues to refuse. Dr. Blue aware.s/p broderick cath removal last pm, at 0600 pt voided 350ml on bsc with 1 assist oob. following directions well. agreed to take levothyroid. swallowed with ease whole with sip of water.
[2021-08-26 09:03] LABS: Hematocrit 35.2 % (37.0-47.0); Hemoglobin 11.2 g/dl (12.0-16.0); Mean Corpuscular HGB Conc 31.8 g/dl (31.0-35.0); Mean Corpuscular Hemoglobin 30.3 pg (27.0-33.0); Mean Corpuscular Volume 95.1 fL (80.0-98.0); Mean Platelet Volume 10.1 fL (9.4-12.3); Platelet Count 196 X10*3/uL (160-400); Red Cell Distribution Width 12.6 % (11.0-16.0); White Blood Count 6.9 X10*3/uL (4.8-10.8)
[2021-08-26 09:17] LABS: Anion Gap 11 (12-20); Blood Urea Nitrogen 12 mg/dL (9-16); Calcium 8.8 mg/dL (8.4-10.2); Carbon Dioxide 26 mmol/L (22-29); Chloride 107 mmol/L (96-108); Creatinine Clr Calc Pharmacy 79.1; Estimated Glomerular Filt Rate > 60; Glucose Fasting 105 mg/dL (60-99); Potassium 3.3 mmol/L (3.3-5.1); Sodium 141 mmol/L (135-145)
[2021-08-26] MEDS: Azithromycin 500 MG in 0.9 % Sodium Chloride 250 ML 125 MG IV (10:18)
[2021-08-26] MEDS: busPIRone HCl 5 MG TABLET 7.5 MG PO ×2 (10:20→20:01)
[2021-08-26] MEDS: dilTIAZem HCL 60 MG TABLET OG-TUBE ×3 (10:22→18:15)
[2021-08-26] MEDS: Furosemide 40 MG TABLET PO (10:24)
[2021-08-26] MEDS: Mirabegron 50 MG TAB.ER.24H PO ×2 (10:25→20:01)
[2021-08-26] MEDS: Dicyclomine HCl 10 MG CAPSULE PO ×3 (10:32→18:15)
[2021-08-26] MEDS: Aspirin 81 MG TAB.CHEW PO (10:32)
--- NOTE | 2021-08-26 10:48 | MHC.SL.DTX ---
Dysphagia Diet modifications: Last documented Solid diet consistencies: Pureed (NDD1) Last documented Liquid consistency: [place] Thick Last documented Medication Administration: crushed in puree Changes made to current diet?: No Liquid Consistency and Strategies: Liquid Intake Recommendation: [place] Thick Compensatory Strategies for Safe Swallow: Small Sips No Straws Compensatory Strategies for Safe Swallow(b): Sitting Upright (90 deg) No Straw Liquids from Cup Liquids from Spoon Small Bites and Sips Oral Check Solid Food Consistency: Dietary Recommendations: Pureed (NDD1) Additional Modifications to Solids: Follow bites of puree with sips of recommended consistency liquid Oral Medication Intake: Crushed with Puree Strategies and Precautions to be Taken for Safe Swallow: Sitting Upright (90 deg) No Straw Liquids from Cup Liquids from Spoon Small Bites and Sips Oral Check Supervision While Eating and/Drinking: Total Assistance Level of Impact on: Daily activities: Severe Interpersonal interactions: Education: Severe Employment: Severe Community: Severe Prognosis for Improvement: Guarded Recommendation for Speech: Inpatient Speech Therapy Comment: Pt presents with delay of oral phase of swallow on all consistencies and mild delay initiating swallow on all consistencies. Recommend start on Puree diet, with progression as appropriate on re-eval. Additional Comments: Treatment: Pt was seen for dysphagia treatment with RN present. Pt was very sleepy upon this SENIOR ENERGY TRADER's arrival. RN reported pt had not yet consumed breakfast as she was sleeping all morning. Current diet consistency NDD1 PUREED solids with NECTAR THICK liquids which was noted by this SENIOR ENERGY TRADER on pt's whiteboard. Pt elicited an immediate, wet, prolonged coughing instance following a 1/2 tsp trial of thin water. No further overt s/s aspiration noted with nectar thick liquids via tsp and small, single cup sips. Pt demonstrated a moderately delayed pharyngeal swallow trigger. Attempted trial of moistened ground solids, though pt declined following 1 trial, stating she did not like crackers. Pt too sleepy to continue with trials of advanced solids this date. Updated with RN re: recommendation to continue with current diet consistency. SENIOR ENERGY TRADER will continue to follow pt to determine the safest and least restrictive diet consistency. Kettle Operator Clinican/Clinical Fellow: No Supervisory Statement: I have reviewed and agree with the student/clinical fellow's documentation: N/A Speech Language Pathologist: Iman Aguilera M.A., [facility]-SENIOR ENERGY TRADER
--- NOTE | 2021-08-26 10:49 | HO.PM.IMPN ---
Subjective Subjective Date of Service: 08/26/21 Interval History: ?cc: fall interval history: tired Cardiovascular Cardiovascular: Reports no additional cardiovascular complaints Respiratory Respiratory: Reports no additional respiratory complaints Physical Exam Vital Signs: Vital Signs: Last Vital Signs Temp 97 F 08/26/21 07:17 Pulse 92 08/26/21 10:22 Resp 20 08/26/21 07:17 BP 130/74 08/26/21 10:22 Pulse Ox 96 08/26/21 07:17 Oxygen Flow Rate 2 08/21/21 20:25 Body Mass Index 38.2 General: lethargic oriented to person and time, not place, calmer than yesterday Resp:? diminshed, no accessory muscles used CVS: S1,S2,RRR, murmur GI: soft, non tender, non distended Neuro:? no obvious defecits Psych: agitated, impaired insight? Objective Data Active Medications Acetaminophen (Acetaminophen 325 Mg Tablet) 650 mg PO Q6H PRN PRN Reason: Pain, Mild (Pain Scale 1-3) Albuterol Sulfate (Albuterol Sulfate 90 Mcg 8 Gm Inhaler) 2 puff INHALE DAILY PRN PRN Reason: for dyspnea Albuterol/Ipratropium (Albuterol/Iprat 2.5/0.5mg 3 Ml Ampul.Neb) 3 ml INHALE Q6H PRN PRN Reason: Wheezing Aspirin (Aspirin 81 Mg Tab.Chew) 81 mg PO DAILY [facility] Last Admin: 08/26/21 10:32 Dose: 81 mg Documented by: JANET Atorvastatin Calcium (Atorvastatin Calcium 40 Mg Tablet) 40 mg PO BEDTIME [facility] Last Admin: 08/25/21 19:26 Dose: 40 mg Documented by: CORTNEY Buspirone HCl (Buspirone Hcl 5 Mg Tablet) 7.5 mg PO BID [facility] Last Admin: 08/26/21 10:20 Dose: 7.5 mg Documented by: JANET Clonazepam (Clonazepam 0.5 Mg Tablet) 0.25 mg PO BEDTIME PRN PRN Reason: Sleep Dicyclomine HCl (Dicyclomine Hcl 10 Mg Capsule) 10 mg PO TIDWM [facility] Last Admin: 08/26/21 10:32 Dose: 10 mg Documented by: JANET Diltiazem HCl (Diltiazem Hcl 60 Mg Tablet) 60 mg OG-TUBE QID [facility]; Protocol Last Admin: 08/26/21 10:22 Dose: 60 mg Documented by: JANET Docusate Sodium (Docusate Sodium 100 Mg Capsule) 100 mg PO DAILY PRN PRN Reason: Constipation Enoxaparin Sodium (Enoxaparin Sodium 40 Mg/0.4 Ml Syringe) 40 mg SUBCUT Q24H [facility] Last Admin: 08/26/21 03:27 Dose: Not Given Documented by: MATT Non-Admin Reason: Patient Refused Fluticasone/Vilanterol (Fluticasone/Vilanterol 200/25 Blst.W.Dev) 1 puff INHALE BEDTIME [facility] Last Admin: 08/25/21 19:51 Dose: Not Given Documented by: TIM Non-Admin Reason: Med Not Available Furosemide (Furosemide 40 Mg Tablet) 40 mg PO DAILY [facility]; Protocol Last Admin: 08/26/21 10:24 Dose: 40 mg Documented by: JANET Azithromycin 500 mg/ Sodium (Chloride) 250 mls @ 125 mls/hr IV Q24H [facility] Stop: 08/28/21 08:59 Last Admin: 08/26/21 10:18 Dose: 125 mls/hr Documented by: JANET Ceftriaxone Sodium 1 gm/ (Sodium Chloride) 50 mls @ 100 mls/hr IV Q24H [facility] Last Infusion: 08/25/21 23:15 Dose: 0 mls/hr Documented by: CORTNEY Lactulose (Lactulose 20 Gm/30 Ml Solution) 10 gm PO BID PRN PRN Reason: Constipation Levothyroxine Sodium (Levothyroxine Sodium 175 Mcg Tablet) 175 mcg PO DAILY@0630 [facility] Last Admin: 08/26/21 07:18 Dose: 175 mcg Documented by: MATT Mirabegron (Mirabegron 50 Mg Tab.Er.24h) 50 mg PO BID [facility] Last Admin: 08/26/21 10:25 Dose: 50 mg Documented by: JANET Oxybutynin Chloride (Oxybutynin Chloride Er 5 Mg Tab.Er.24) 15 mg PO BID [facility] Last Admin: 08/26/21 10:22 Dose: 15 mg Documented by: JANET Labs CBC & Chem 7: 08/26/21 08:48 08/26/21 08:48 Labs: Laboratory Results - last 24 hr 08/26/21 08/26/21 08:48 08:48 MCV 95.1 MCH 30.3 MCHC 31.8 RDW 12.6 Plt Count 196 MPV 10.1 Absolute Nucleated RBC 0.000 Nucleated RBC % (auto) 0.0 Anion Gap 11 L Estim Creat Clear Calc 79.1 Estimated GFR > 60 Fasting Glucose 105 H Calcium 8.8 D Microbiology Microbiology Results: Microbiology 08/23/21 15:24 Gram Stain - Final Sputum - Suctioned Sputum Culture - Final Assessment and Plan (1) Cerebral infarction: Status: Acute (2) Acute on chronic respiratory failure with hypoxia and hypercapnia: Status: Acute Assessment and Plan: 71-year-old female who was admitted August 23 for subacute CVA after fall. Course was then complicated by agitation followed by acute on chronic hypoxic and hypercapnic respiratory failure requiring intubation. Patient was eventually extubated in ICU and has been stable on 2 L nasal cannula. She was downgraded to medical floor overnight. Subacute right parietal CVA Source suspected to be cardioembolic, however, was determined the patient's risk for anticoagulation or her the benefits and will be treated with antiplatelet and statin Further decision about anticoagulation will be revisited in the future Acute on chronic hypoxic and hypercapnic respiratory failure Extubated successfully Chronic hypoxic respiratory failure secondary to COPD Continue inhalers Chronic diastolic CHF with right-sided heart failure and moderate to severe aortic stenosis Continue Lasix Hypothyroid Synthroid Quality Stroke Does the patient have a stroke diagnosis?: No VTE Prior VTE?: No VTE Risk Level:: Medical - moderate - high VTE Device Contraindication: Treatment Not Indicated VTE Drug Contraindication: N/A - Med Ordered
--- NOTE | 2021-08-26 13:28 | MHC.CM.PN ---
PER ROUNDS PT DATE DC UNCERTAIUN AT THIS TIME
--- NOTE | 2021-08-26 14:50 | PC.NURSE ---
2L NC RE-APPLIED TO MAINTAIN 02 > 90%. AWARE.
[2021-08-26] MEDS: Fluticasone/Vilanterol 200/25 BLST.W.DEV 1 PUFF INHALE (19:19)
[2021-08-26] MEDS: cefTRIAXone sodium 1 GM in 0.9 % Sodium Chloride 50 ML IV (20:01)
[2021-08-26] MEDS: Atorvastatin Calcium 40 MG TABLET PO (20:08)
[2021-08-26] MEDS: Acetaminophen 325 MG TABLET 650 MG PO (21:21)
[2021-08-26] MEDS: clonazePAM 0.5 MG TABLET 0.25 MG PO (23:38)
[2021-08-27] VITALS (8 sets, daily range): BP systolic 109–132; BP diastolic 52–85; PULSE 55–85; RESP 18; TEMP 36.3–36.8; O2SAT 95–97
[2021-08-27] MEDS: Melatonin 3 MG TABLET 6 MG PO (02:03)
[2021-08-27] MEDS: Levothyroxine Sodium 175 MCG TABLET PO (06:22)
[2021-08-27] MEDS: dilTIAZem HCL 60 MG TABLET OG-TUBE ×2 (10:28→15:06)
[2021-08-27] MEDS: busPIRone HCl 5 MG TABLET 7.5 MG PO ×2 (10:28→20:21)
[2021-08-27] MEDS: Mirabegron 50 MG TAB.ER.24H PO ×2 (10:28→20:21)
[2021-08-27] MEDS: acetaZOLAMIDE 250 MG TABLET PO (10:29)
[2021-08-27] MEDS: Aspirin 81 MG TAB.CHEW PO (10:29)
[2021-08-27] MEDS: Furosemide 40 MG TABLET PO (10:29)
[2021-08-27] MEDS: Dicyclomine HCl 10 MG CAPSULE PO ×2 (10:29→16:47)
[2021-08-27] MEDS: Azithromycin 500 MG in 0.9 % Sodium Chloride 250 ML 125 MG IV (10:29)
--- NOTE | 2021-08-27 10:38 | P.PNIM_ITS ---
Subjective Subjective Date of Service: 08/27/21 Interval History: cc: fall interval history: tired Cardiovascular Cardiovascular: Reports no additional cardiovascular complaints Respiratory Respiratory: Reports no additional respiratory complaints Physical Exam Vital Signs: Vital Signs: Last Vital Signs Temp 97.4 F 08/26/21 23:59 Pulse 85 08/27/21 10:28 Resp 18 08/26/21 23:59 BP 132/85 08/27/21 10:28 Pulse Ox 97 08/26/21 23:59 Oxygen Flow Rate 2 08/21/21 20:25 Body Mass Index 38.2 General: lethargic oriented to person and time, not place, calm Resp:? diminshed, no accessory muscles used CVS: S1,S2,RRR, murmur GI: soft, non tender, non distended Neuro:? no obvious defecits Psych: agitated, impaired insight? Objective Data Active Medications Acetaminophen (Acetaminophen 325 Mg Tablet) 650 mg PO Q6H PRN PRN Reason: Pain, Mild (Pain Scale 1-3) Last Admin: 08/26/21 21:21 Dose: 650 mg Documented by: CORTNEY Acetazolamide (Acetazolamide 250 Mg Tablet) 250 mg PO DAILY [facility] Last Admin: 08/27/21 10:29 Dose: 250 mg Documented by: GUILLERMINA Albuterol Sulfate (Albuterol Sulfate 90 Mcg 8 Gm Inhaler) 2 puff INHALE DAILY PRN PRN Reason: for dyspnea Albuterol/Ipratropium (Albuterol/Iprat 2.5/0.5mg 3 Ml Ampul.Neb) 3 ml INHALE Q6H PRN PRN Reason: Wheezing Aspirin (Aspirin 81 Mg Tab.Chew) 81 mg PO DAILY [facility] Last Admin: 08/27/21 10:29 Dose: 81 mg Documented by: GUILLERMINA Atorvastatin Calcium (Atorvastatin Calcium 40 Mg Tablet) 40 mg PO BEDTIME [facility] Last Admin: 08/26/21 20:08 Dose: 40 mg Documented by: CORTNEY Buspirone HCl (Buspirone Hcl 5 Mg Tablet) 7.5 mg PO BID [facility] Last Admin: 08/27/21 10:28 Dose: 7.5 mg Documented by: GUILLERMINA Dicyclomine HCl (Dicyclomine Hcl 10 Mg Capsule) 10 mg PO TIDWM [facility] Last Admin: 08/27/21 10:29 Dose: 10 mg Documented by: GUILLERMINA Diltiazem HCl (Diltiazem Hcl 60 Mg Tablet) 60 mg OG-TUBE QID [facility]; Protocol Last Admin: 08/27/21 10:28 Dose: 60 mg Documented by: GUILLERMINA Docusate Sodium (Docusate Sodium 100 Mg Capsule) 100 mg PO DAILY PRN PRN Reason: Constipation Enoxaparin Sodium (Enoxaparin Sodium 40 Mg/0.4 Ml Syringe) 40 mg SUBCUT Q24H [facility] Last Admin: 08/27/21 02:05 Dose: Not Given Documented by: DAVID Non-Admin Reason: Patient Refused Fluticasone/Vilanterol (Fluticasone/Vilanterol 200/25 Blst.W.Dev) 1 puff INHALE BEDTIME [facility] Last Admin: 08/26/21 19:19 Dose: 1 puff Documented by: GEOVANNI Furosemide (Furosemide 40 Mg Tablet) 40 mg PO DAILY [facility]; Protocol Last Admin: 08/27/21 10:29 Dose: 40 mg Documented by: GUILLERMINA Azithromycin 500 mg/ Sodium (Chloride) 250 mls @ 125 mls/hr IV Q24H [facility] Stop: 08/28/21 08:59 Last Admin: 08/27/21 10:29 Dose: 125 mls/hr Documented by: GUILLERMINA Ceftriaxone Sodium 1 gm/ (Sodium Chloride) 50 mls @ 100 mls/hr IV Q24H [facility] Last Infusion: 08/26/21 20:36 Dose: 0 mls/hr Documented by: CORTNEY Lactulose (Lactulose 20 Gm/30 Ml Solution) 10 gm PO BID PRN PRN Reason: Constipation Levothyroxine Sodium (Levothyroxine Sodium 175 Mcg Tablet) 175 mcg PO DAILY@0 630 [facility] Last Admin: 08/27/21 06:22 Dose: 175 mcg Documented by: DAVID Mirabegron (Mirabegron 50 Mg Tab.Er.24h) 50 mg PO BID [facility] Last Admin: 08/27/21 10:28 Dose: 50 mg Documented by: GUILLERMINA Oxybutynin Chloride (Oxybutynin Chloride Er 5 Mg Tab.Er.24) 15 mg PO BID [facility] Last Admin: 08/27/21 10:27 Dose: 15 mg Documented by: GUILLERMINA Labs CBC & Chem 7: 08/26/21 08:48 08/26/21 08:48 Assessment and Plan (1) Cerebral infarction: Status: Acute (2) Acute on chronic respiratory failure with hypoxia and hypercapnia: Status: Acute Assessment and Plan: 71-year-old female who was admitted August 23 for subacute CVA after fall. Course was then complicated by agitation followed by acute on chronic hypoxic and hypercapnic respiratory failure requiring intubation. Patient was eventually extubated in ICU and has been stable on 2 L nasal cannula. She was downgraded to medical floor overnight. Subacute right parietal CVA Source suspected to be cardioembolic, however, was determined the patient's risk for anticoagulation or her the benefits and will be treated with antiplatelet and statin Further decision about anticoagulation will be revisited in the future Acute on chronic hypoxic and hypercapnic respiratory failure Extubated successfully back to baseline Chronic hypoxic respiratory failure secondary to COPD Continue inhalers, o2 supplement Chronic diastolic CHF with right-sided heart failure and moderate to severe aortic stenosis Continue Lasix Hypothyroid Synthroid dispo - will likely need STR Quality Stroke Does the patient have a stroke diagnosis?: No VTE Prior VTE?: No VTE Risk Level:: Medical - moderate - high VTE Device Contraindication: Treatment Not Indicated VTE Drug Contraindication: N/A - Med Ordered
--- NOTE | 2021-08-27 17:59 | PC.NURSE ---
Pt continuously up out of recliner, verbally abusive to staff when attempting to redirect her and assisting her with toileting. Patient in recliner until about 1800 then back to bed. Will pass to oncoming RN.
[2021-08-27] MEDS: Fluticasone/Vilanterol 200/25 BLST.W.DEV 1 PUFF INHALE (19:19)
[2021-08-27] MEDS: dilTIAZem HCL CD 120 MG CAP.ER.DEG PO (20:20)
[2021-08-27] MEDS: Atorvastatin Calcium 40 MG TABLET PO (20:23)
[2021-08-27] MEDS: cefTRIAXone sodium 1 GM in 0.9 % Sodium Chloride 50 ML IV (20:29)
[2021-08-28] MEDS: clonazePAM 0.5 MG TABLET 0.25 MG PO (01:24)
[2021-08-28] MEDS: Acetaminophen 325 MG TABLET 650 MG PO (01:24)
[2021-08-28] MEDS: Levothyroxine Sodium 175 MCG TABLET PO (05:47)
[2021-08-28 07:49] VITALS: BP 145/78; PULSE 54; RESP 20; TEMP 37; O2SAT 92
[2021-08-28] MEDS: Dicyclomine HCl 10 MG CAPSULE PO (08:23)
[2021-08-28] MEDS: Furosemide 40 MG TABLET PO (08:24)
[2021-08-28] MEDS: Mirabegron 50 MG TAB.ER.24H PO (08:24)
[2021-08-28] MEDS: Aspirin 81 MG TAB.CHEW PO (08:24)
[2021-08-28] MEDS: acetaZOLAMIDE 250 MG TABLET PO (08:24)
[2021-08-28] MEDS: busPIRone HCl 5 MG TABLET 7.5 MG PO (08:25)
[2021-08-28 08:27] VITALS: PULSE 54
--- NOTE | 2021-08-28 09:35 | PM.DS ---
DS: Providers Provider Date of Service: 08/28/21 Date of admission: 08/22/21 00:27 Primary care physician: Danny Lorenzana MD Consults: 08/22/21 00:55 Consult to Neurology Routine Consulting Provider: [facility] Reason for consultation: stroke Has provider been notified: No DS: Diagnosis Discharge Diagnosis (1) Cerebral infarction: Status: Acute (2) Acute on chronic respiratory failure with hypoxia and hypercapnia: Status: Acute DS: Summary Hospital Course Hospital Course: patient was admitted for fall due to unsteadiness from subacute CVA. course was complicated by acute delerium leading to acute on chronic hypoxic and hypercapneic respiratory failure requiring intubation, complicated by sepsis from likely aspiration pneumonia. patient was extubated after just over 24hours. she did well post extubation. she was treated with diamox, ceftriaxone, and azithromycin. she was weaned down to baseline 2L oxygen, became afebrile. cultures were negative. for her recent stroke she was seen by neuro who felt this may be cardioembolic, however, given bleeding risk, risks of anitcoagulation outweigh benefits and recommended just aspirin and statin. patient was seen by physical therapy, initially plan was for discharge to SNF, however, patient and son decided that they would rather go home. they are aware of fall risk, will continue PT at home. Time Spent with Patient Time attestation: Total time spent providing and/or coordinating discharge services: Discharge coordination time: Greater than 30 minutes Quality: Stroke Does the patient have a stroke diagnosis?: Yes Reason for No Anti-thrombotic at DC: N/A - Med Ordered Reason for No Anticoagulant at DC: Drug intolerance Reason Not Initiating IV-Tpa: Not indicated Reason for No Anti-thrombotic by Day Two: N/A - Med Ordered Reason for No Statin at DC: N/A - Med Ordered Physical Exam Vital Signs: Vital Signs: Last Vital Signs Temp 98.6 F 08/28/21 07:49 Pulse 54 08/28/21 08:27 Resp 20 08/28/21 07:49 BP 145/78 H 08/28/21 07:49 Pulse Ox 92 08/28/21 07:49 Oxygen Flow Rate 2 08/21/21 20:25 Body Mass Index 38.2 General: AO X 3, no acute distress Resp: CTA bilateral, no accessory muscles used CVS: S1,S2,RRR, murmur GI: soft, non tender, non distended Neuro: motor grossly intact, alert Psych: appropriate affect, appropriate insight DS: Data Data Completed and Pending Completed studies during hospitalization [Text1]: Procedures Assistance with Respiratory Ventilation, Less than 24 Consecutive Hours, Continuous Positive Airway Pressure (05/25/21) Discharge Plan Discharge Patient Disposition: Home Health Service Discharge Diagnosis: cva, pneumonia Referrals: Physician,Unknown J [Physician] - 1 Week Discharge Medications: New cefuroxime axetil 500 mg tablet 500 mg PO BID Qty: 10 RF: 0 Continued albuterol sulfate 90 mcg/actuation HFA aerosol inhaler 2 puff PO DAILY PRN (Reason: for dyspnea) Qty: 18 RF: 3 Myrbetriq 50 mg tablet extended release 24 hr 50 mg PO BID 30 Days Qty: 60 RF: 6 buspirone 7.5 mg tablet 1 tab PO BID RF: 0 oxybutynin chloride 15 mg tablet extended release 24 hr 15 mg PO BID RF: 0 aspirin 81 mg Tablet,Chewable 81 mg PO DAILY RF: 0 Breo Ellipta 200-25 mcg/dose blister with device 1 inh inhalation BEDTIME RF: 0 acetaminophen 325 mg Tablet 650 mg PO Q4H PRN (Reason: Pain) RF: 0 acetazolamide 250 mg tablet 250 mg PO DAILY Qty: 30 RF: 0 lactulose 10 gram/15 mL solution 15 ml PO BID PRN (Reason: Constipation) RF: 0 guaifenesin [Mucinex] 600 mg tablet extended release 12hr 600 mg PO BID RF: 0 ipratropium-albuterol 0.5 mg-3 mg(2.5 mg base)/3 mL solution for nebulization 3 ml inhalation Q6H PRN (Reason: Wheezing) RF: 0 diltiazem HCl 120 mg capsule,extended release 12 hr 120 mg PO BID RF: 0 atorvastatin 40 mg tablet 40 mg PO BEDTIME RF: 0 omeprazole 20 mg capsule,delayed release(DR/EC) 20 mg PO DAILY RF: 0 levothyroxine 175 mcg tablet 175 mcg PO DAILY@0630 RF: 0 dicyclomine 10 mg capsule 10 mg PO TIDWM RF: 0 clonazepam 0.5 mg tablet 0.25 mg PO BEDTIME PRN (Reason: Sleep) RF: 0 furosemide 20 mg tablet 60 mg PO DAILY RF: 0 Discharge Orders: Discharge Order (Routine); Ordered 08/28/21 Ordered By: Raj Cervantes Diet: advance to usual diet Activity on Discharge: As tolerated Stand Alone Forms: Patient Portal Discharge page Care Plan Goals: recovery Health Concerns: recent stroke, pneuonia, falls Plan of Treatment: asa and statin, 5 more days ceftin, fall precautions, work with PT Assessment: see above
--- NOTE | 2021-08-28 10:04 | P.F2F_ITS ---
Service Date Service Date: 08/28/21 Reasons for Services Reason for intermediate: medication management, medication treatment and teach disease management Reason for physical therapy: home safety and mobility, therapeutic exercises, restore joint function and gait/transfer training Homebound: Leaving the home is medically contraindicated at this time without the asist of a device and/or another person due th the listed conditions above and below. Certification: Based on the above findings, I certify that this patient is confined to the home and needs intermittent intermediate care, physical therapy and/or speech therapy, or continues to need occupational therapy. The patient is under my care, and I have initiated the establishment of the plan of care. The patient will be followed by a physician who will periodically review the plan of care.
--- NOTE | 2021-08-28 10:40 | MHC.CM.PN ---
PT IS CLEARED TO DC TODAY. PER MD, PT REFUSING STR AND REQUESTING TO RETURN HOME. CM CONTACTED PTS DAUGHTER/HCP SUZANNE [phone], TO INFORM HER OF PENDING DC/PLAN. SUZANNE WAS INFORMED PT WOULD RETURN HOME TODAY WITH [facility] TO PROVIDE SN AND PT SERVICES. SUZANNE CONFIRMED HER BROTHER LIVES IN THE HOME AND ASSISTS THE PT PRN. PTS MEDICARE RIGHTS WERE DELIVERED TO SUZANNE VIA T/C. PT WILL DC HOME TODAY WITH [facility] FOR SN AND PT CHAIR VAN ([facility] COVERING) TRANSPORT ARRANGED DUE TO RECENT FALLS/NEUROPATHY.
--- NOTE | 2021-09-06 14:30 | MHC.STROKE ---
late entry for 08/21/21-08/28/21 stroke education covered risk of smoking as one of her individual risk factors. She has not been actively smoking, home O2.
== END 2021-08-28 10:45 | disposition home health service (06) | DRG 291 ==
LOC: HO.ED 08-22 00:32 → HO.EDOVER 08-22 00:38 → HO.IMC 08-22 18:44 → HO.ICU 08-23 01:36 → HO.IMC 08-25 08:47
PROVIDERS: Anesthesiology; Internal Medicine; Physician Assistant; Admitting Provider Internal Medicine; Emergency Provider Internal Medicine; PCP Internal Medicine; Visit Provider Internal Medicine
DX: I11.0 Hypertensive heart disease with heart failure (principal); I50.33 Acute on chronic diastolic (congestive) heart failure; J96.22 Acute and chronic respiratory failure with hypercapnia; J96.21 Acute and chronic respiratory failure with hypoxia; I63.331 Cerebral infarction due to thrombosis of right posterior cerebral artery; A41.9 Sepsis, unspecified organism; J69.0 Pneumonitis due to inhalation of food and vomit; J44.0 Chronic obstructive pulmonary disease with (acute) lower respiratory infection; E87.4 Mixed disorder of acid-base balance; F05 Delirium due to known physiological condition; R29.700 NIHSS score 0; F17.210 Nicotine dependence, cigarettes, uncomplicated; E03.9 Hypothyroidism, unspecified; G47.33 Obstructive sleep apnea (adult) (pediatric); I35.0 Nonrheumatic aortic (valve) stenosis; I50.810 Right heart failure, unspecified; K43.9 Ventral hernia without obstruction or gangrene; Z99.81 Dependence on supplemental oxygen; Z71.6 Tobacco abuse counseling; Z20.822 Contact with and (suspected) exposure to COVID-19; Z88.5 Allergy status to narcotic agent; Z79.82 Long term (current) use of aspirin; Z79.890 Hormone replacement therapy; Z79.899 Other long term (current) drug therapy
CPT/HCPCS: 36415; 70450; 70496; 70498; 71045; 71250; 72125; 73000; 80048; 80053; 80061; 80307; 82140; 82310; 82803; 82947; 83605; 83735; 83880; 84100; 84145; 84443; 84484; 85025; 85027; 85379; 87070; 87205; 87635; 92610; 93005; 93306; 94002; 94003; 94799; 96372; 97162; 97166; 99285; C1758; J0171; J0456; J0696; J1650; J1940; J2060; J3010; Q9967

== ENCOUNTER 2021-09-09 21:47 | Inpatient (IN) | payer MEDICARE, MEDICAID, SELFPAY ==
--- NOTE | ~2021-09-09 | XR_ITS ---
EXAMINATION: XR CHEST CLINICAL INFORMATION: New orogastric tube placement. COMPARISON: Chest radiographs 09/16/2021 x3 at 0710 hours, 0650 hours and 0115 hours. TECHNIQUE: Semiupright portable AP view of the chest is performed at 1103 hours. FINDINGS: ET tube is approximately 3 cm above sheryl. There is a right internal jugular central venous line with tip at the inferior right atrium. The new orogastric tube is seen in the abdomen left upper quadrant. There are surgical clips on the right apex and right chest. No definite pneumothorax or pneumomediastinum. There is enlarged cardiopericardial silhouette similar to prior studies. Patchy airspace opacities again seen greater on right lower zone. Some of the opacities at right base appear increased. XR/XR chest 1V IMPRESSION: 1. Orogastric tube in abdomen. 2. ET tube approximately 3 cm above sheryl. Right IJ at inferior right atrium. 3. Bilateral airspace opacities, slight increase right base.
--- NOTE | ~2021-09-09 | XR_ITS ---
EXAMINATION: XR CHEST CLINICAL INFORMATION: Altered mental status COMPARISON: Chest radiographs 09/14/2021 0050 hours, 09/12/2021; CT abdomen 09/13/2021. TECHNIQUE: Portable upright AP view of the chest is performed at 1140 hours. FINDINGS: Patient is slightly rotated to left. There is a nasogastric tube with tip in the upper abdomen. There are surgical clips again seen right infrahilar region with dense pleural based calcification. Airspace opacities bilateral posterior basilar region are without significant change. Again, there is likely small effusions. Enlarged cardiopericardial silhouette is stable. There is even distribution pulmonary vascularity as before suggesting elevated pulmonary venous pressures. No interval congestion. XR/XR chest 1V IMPRESSION: No significant change from prior exam at 0050 hours.
--- NOTE | ~2021-09-09 | CT_ITS ---
EXAMINATION: CT ANGIOGRAM OF THE CHEST WITH AND WITHOUT CONTRAST (CT PULMONARY ANGIOGRAM FOR PE) CLINICAL INFORMATION: Reason for Exam hypoxia COMPARISON: 09/10/2021 TECHNIQUE: Prior to contrast administration, noncontrast localization images were obtained. Subsequently, multidetector volumetric imaging was performed from the thoracic inlet to below the diaphragms following the administration of 85 mL Omnipaque 350 intravenous contrast. No contrast reaction reported Sagittal, coronal, and MIP oblique sagittal reformatted images were obtained on the CT workstation, uploaded to PACS, and reviewed. This CT examination was performed using dose optimization techniques as appropriate, variously including the following: *Automated exposure control *Adjustment of mA and/or kV according to patient size (this includes techniques or standardized protocols for targeted exams where dose is matched to indication/reason for exam; i.e. extremities or head) *Use of iterative reconstruction technique Total exam dose-length product 471 mGy-cm FINDINGS: QUALITY OF STUDY/CONTRAST BOLUS: Satisfactory. PULMONARY ARTERIES: The main pulmonary artery is dilated to approximately 3.7 cm, suggesting pulmonary artery hypertension. No central or proximal segmental pulmonary emboli. There is incomplete assessment of the distal vasculature due to respiratory motion artifact. THORACIC AORTA: No dissection. There is atherosclerotic calcification along the aorta. LUNG: Endotracheal tube tip lies approximately 2 cm above the sheryl. There is redemonstration of multifocal consolidations in the right lung, most prominently in the posterior upper and lower lobes. Minimal dependent opacity is present in the left lower lobe. Redemonstrated mild groundglass opacification of the aerated lung parenchyma as well as some interlobular septal thickening towards the lung periphery suggesting a component of mild edema. Upper lobe predominant emphysema is noted. PLEURA: Redemonstrated dense calcification along the posterior right hemithorax, favored to be pleural in location. No significant pleural effusion. No pneumothorax. MEDIASTINUM: No significant mediastinal lymphadenopathy is seen. There is cardiomegaly without pericardial effusion. Coronary artery calcifications are present. No evidence of septal bowing or right heart strain. CHEST WALL/AXILLA: No axillary or internal mammary lymphadenopathy. OSSEOUS STRUCTURES: Degenerative changes are noted in the spine. UPPER ABDOMEN: Patient is status post cholecystectomy. No reflux of contrast into the hepatic veins to suggest elevated right heart pressures. CT/CT angio chest PE protocol IMPRESSION: 1. No central or proximal pulmonary embolus identified. Incomplete assessment of the distal vasculature due to respiratory motion artifact. 2. Dilated main pulmonary artery suggesting pulmonary hypertension. 3. Redemonstrated multifocal consolidations of the right lung, suspicious for pneumonia. 4. Suspect mild pulmonary edema. 5. Cardiomegaly. VTE: negative
--- NOTE | ~2021-09-09 | XR_ITS ---
EXAMINATION: XR CHEST CLINICAL INFORMATION: Cough COMPARISON: Chest x-ray 08/23/2021 TECHNIQUE: Frontal view of the chest was obtained. FINDINGS: The cardiac silhouette is enlarged. Atherosclerotic disease of the aortic arch. Surgical clips project over the mediastinum. The lungs are adequately aerated. Diffuse coarsening of the interstitial markings are suspected chronic in appearance. There is prominence of the central pulmonary vasculature, right perihilar opacity and bibasilar opacities, right greater than left. Blunting of both costophrenic angle suggests tiny pleural effusions. Suture line projects over the right lung apex. XR/XR chest 1V IMPRESSION: Scattered bilateral opacities, most prominent on the right. Findings may represent an infectious or inflammatory process, however, asymmetrical pulmonary edema would also be within the differential. Clinical correlation is recommended.
--- NOTE | ~2021-09-09 | CT_ITS ---
EXAMINATION: CT CHEST, ABDOMEN AND PELVIS WITHOUT CONTRAST CLINICAL INFORMATION: Hypoxia and constipation. COMPARISON: Multiple priors. Most recent CT of the abdomen and pelvis dated from 09/13/[address] of the chest dated from 09/10/2021. TECHNIQUE: Multidetector volumetric imaging was performed from the thoracic inlet through the pubic symphysis without the administration intravenous contrast. Sagittal and coronal reformatted images were obtained on the technologist's workstation. This CT examination was performed using dose optimization techniques as appropriate, variously including the following: *Automated exposure control *Adjustment of mA and/or kV according to patient size (this includes techniques or standardized protocols for targeted exams where dose is matched to indication/reason for exam; i.e. extremities or head) *Use of iterative reconstruction technique DLP: 1441 mGy-cm FINDINGS: CHEST: Lung: Increased bilateral pleural effusions and worsening lower lobe consolidations since 09/10/2021. Redemonstration of septal thickening and mosaic attenuation of the lung parenchyma, suggesting superimposed pulmonary edema. There is a background of paraseptal emphysematous changes. The endotracheal tube terminates at 3 cm above the sheryl. Mediastinum: Cardiomegaly without pericardial effusion. Air within the right heart chambers is indeterminate in the presence of a central venous catheter. Evaluation of lymphadenopathy is suboptimal in the absence of intravenous contrast. However, accounting for these limitations, no bulky lymphadenopathy is identified. A few prominent mediastinal and hilar lymph nodes are unchanged. Redemonstration of enlarged pulmonary arteries raising the possibility of pulmonary hypertension. Extensive coronary calcifications. Atherosclerotic disease of the thoracic aorta which is of normal diameter. Pericardium/Pleura: Redemonstrated dense calcifications along the posterior right hemithorax. No pneumothorax. As above, increased bilateral pleural effusions. Chest Wall/Axilla: No lymphadenopathy or soft tissue masses. ABDOMEN/PELVIS: Peritoneal Space:No significant free air or free fluid identified. Liver, Gallbladder, Biliary Tree: The noncontrast liver is homogeneous in attenuation without focal abnormalities. The patient is status post cholecystectomy. The common bile duct is dilated measuring up to 1.3 cm, without change and likely related with post cholecystectomy state and patient's age. There is no intrahepatic biliary duct dilatation. Pancreas: Atrophic. No focal abnormalities. Spleen: Unremarkable. Adrenal Glands: Unremarkable. Kidneys and Ureters: The kidneys are normal in size, shape, and attenuation. A 1.4 cm low density cyst in the right kidney is unchanged. No hydronephrosis, hydroureter, or calculi seen. Mild bilateral perinephric stranding. Bladder: Underdistended and suboptimally assessed. There is a Stanford catheter and balloon in place. Air in the lumen of the bladder is indeterminate in the presence of the Stanford. There is no significant perivesical fat stranding. Gastrointestinal Tract: An enteric tube terminates tenting the anterior wall of the stomach (6:26). The stomach and the small bowel are nondilated. There is significant stool burden throughout the colon with colonic diverticulosis but no convincing acute diverticulitis. There is questionable new wall thickening of the ascending colon (14:33). No bowel obstruction. Abdominal Wall: Again noted postsurgical changes and mesh in the anterior abdominal wall with similar degree of thickening and fat stranding. A 3.6 cm structure to the right of the midline in the abdominal wall (6, 62) is unchanged. New small volume of ascites and worsening anasarca. Lymphovascular Structures: Evaluation of lymphadenopathy is limited in the absence of intravenous contrast. Accounting for these limitations, a few prominent mesenteric and retroperitoneal lymph nodes are not significantly changed. Extensive atherosclerotic disease. The infrarenal abdominal aorta measures up to 2.8 cm in maximum dimensions, similar to prior. Pelvic Viscera: Unremarkable. Osseus Structures: No acute or aggressive osseous abnormalities. Thoracolumbar spondylosis. CT/CT abdomen pelvis wo con IMPRESSION: Increased bilateral pleural effusions and consolidative opacities in the lower lobes concerning for aspiration or worsening pneumonia. Increased ascites and anasarca. Redemonstration of significant stool burden throughout the colon suggesting constipation and slow transit. There is however questionable new wall thickening of the colon at the level of the hepatic flexure/ascending colon. Correlate clinically for colitis. Redemonstration of a complex postoperative appearance of the anterior abdominal wall with surgical mesh and similar degree of associated fat stranding and thickening. Correlate clinically for superimposed infection. The enteric tube distorts the stomach wall without definite free air or wall disruption. Recommend slight retraction. Coronary calcifications, pulmonary hypertension and extensive atherosclerotic disease.
--- NOTE | ~2021-09-09 | US_ITS ---
EXAMINATION: US ABDOMEN LIMITED CLINICAL INFORMATION: Right upper quadrant pain. Nausea and vomiting. COMPARISON: None TECHNIQUE: Real-time imaging of the right upper quadrant abdominal viscera. FINDINGS: PANCREAS: Visualized head and body of the pancreas is homogeneous in echotexture. The distal pancreas is partially obscured by gas. The pancreatic duct measures 0.4 cm. LIVER: The liver is normal in size. The liver contour is normal. Parenchymal echogenicity is normal. No focal hepatic lesion. There are mild dilated intrahepatic ducts. GALLBLADDER: The gallbladder has been surgically removed. COMMON BILE DUCT: Normal in caliber measuring 0.6 cm in diameter at the pancreatic head. RIGHT KIDNEY: There is an anechoic cyst in the upper pole measuring 1.1 x 1.5 x 1.1 cm. No hydronephrosis. No renal calculi or focal parenchymal lesions. The kidney measures 10.3 cm in maximum dimension. FREE FLUID: None. US/US abdomen limited IMPRESSION: Simple cyst upper pole right kidney. The gallbladder has been surgically removed. Mild intrahepatic ductal prominence. The pancreas is partially obscured by overlying gas.
--- NOTE | ~2021-09-09 | CT_ITS ---
EXAMINATION: CT ABDOMEN AND PELVIS WITHOUT CONTRAST CLINICAL INFORMATION: Diffuse abdominal pain with nausea and vomiting. COMPARISON: Ultrasound abdomen 09/13/2021. CT abdomen 09/10/2021. TECHNIQUE: Multidetector volumetric imaging was performed from the superior aspect of the liver through the pubic symphysis. Sagittal and coronal reformatted images were obtained on the technologist's workstation. This CT examination was performed using dose optimization techniques as appropriate, variously including the following: *Automated exposure control *Adjustment of mA and/or kV according to patient size (this includes techniques or standardized protocols for targeted exams where dose is matched to indication/reason for exam; i.e. extremities or head) *Use of iterative reconstruction technique DLP: 818 mGy-cm FINDINGS: LUNG BASES: There is dense right pleural calcification and a small left pleural effusion. There is bilateral lower lobe consolidation with new left lower lobe consolidation. The heart size is enlarged. LIVER, GALLBLADDER, AND BILIARY TREE: The liver is normal in size, shape, and attenuation. No focal hepatic lesion or biliary ductal dilatation is present. The gallbladder has been surgically removed. PANCREAS: Unremarkable. SPLEEN: Unremarkable. ADRENAL GLANDS: Unremarkable. KIDNEYS AND URETERS: The kidneys are normal in size, shape, and attenuation. No hydronephrosis, hydroureter, or calculi seen. No perinephric stranding. BLADDER: The bladder is nondistended with a Stanford's catheter within. GASTROINTESTINAL TRACT: The stomach is distended with air-fluid level. The small bowel loops are prominent with air-fluid levels but not significantly distended. There is large amount of stool seen in the colon, especially the right colon and distal ileum. No free air or free fluid seen. ABDOMINAL WALL: There is lower anterior abdominal wall hernia repair with crumpled mesh. There is a 2.9 cm round right abdominal wall lesion measuring 30 Hounsfield units anterior to the mesh on axial image 61/3. Question complex fluid or scar. Superior to the mesh, there is a midline abdominal wall hernia with transverse colon. LYMPH NODES: Normal. VASCULAR: Mild atherosclerotic changes of abdominal aorta and common iliac vessels are noted. No aneurysmal dilatation seen. PELVIC VISCERA: Unremarkable. OSSEOUS STRUCTURES: There is vacuum disc phenomena at L1-L2, L3-L4 and L5/S1 disc levels with loss of disc height. Grade 1 anterolisthesis L4 over L5 is noted. No aggressive lytic or sclerotic process seen. There is bilateral SI joint sclerosis suggestive of sacroiliitis with vacuum phenomena in the joint. CT/CT abdomen pelvis wo con IMPRESSION: 1. Large amount of stool in ascending and transverse colon extending into the distal ileum likely cause of low grade obstruction. Multiple prominent small bowel loops with air-fluid level are noted. The stomach is distended with air-fluid level. No free air seen. 2. Mid to distal midline abdominal wall hernia repair with mesh in place. There is small focal soft tissue lesion anterior to the mesh on axial image 62/3 and measures solid. 3. There is a small midline abdominal wall hernia superior to the mesh.
--- NOTE | ~2021-09-09 | XR_ITS ---
EXAMINATION: XR CHEST CLINICAL INFORMATION: Intubated COMPARISON: Chest 09/10/2021 TECHNIQUE: Frontal view of the chest was obtained. FINDINGS: The lungs are hypoexpanded with patchy airspace opacities in both lungs suggestive interstitial infiltrates or edema. XR/XR chest 1V IMPRESSION: Stable lines and catheters. Patchy bilateral opacities consistent interstitial infiltrate or edema is stable.
--- NOTE | ~2021-09-09 | XR_ITS ---
EXAMINATION: XR CHEST CLINICAL INFORMATION: Catheter placement COMPARISON: 09/16/2021 earlier TECHNIQUE: Frontal view of the chest was obtained. FINDINGS: Catheter tip overlying the right atrium. There is no pneumothorax. Persistent right midlung opacities in increasing opacity at left base may be atelectasis or infiltrate. Persistent interstitial change through the remainder of the lungs. XR/XR chest 1V IMPRESSION: Catheter tip overlying the right atrium. There is no pneumothorax. Persistent opacities bilaterally with increasing retrocardiac opacity which may be consistent with infiltrate or atelectasis
--- NOTE | ~2021-09-09 | CT_ITS ---
EXAM: NONCONTRAST CT OF THE CHEST; NONCONTRAST CT OF THE ABDOMEN AND PELVIS INDICATION: Shortness of breath, abdominal pain COMPARISON: 08/23/2021 TECHNIQUE: No IV contrast was utilized. Multidetector helical imaging was performed through the chest, abdomen, and pelvis. Coronal and sagittal reformatted images were created at the technologist workstation. DOSE LOWERING TECHNIQUES: This CT examination was performed using dose optimization techniques as appropriate, variously including the following: - Automated exposure control - Adjustment of mA and/or kV according to patient size (this includes techniques or standardized protocols for targeted exams were dose is matched to indication/reason for exam; i.e. extremities or head) - Use of iterative reconstruction technique DLP: 2176 mGy-cm FINDINGS: Chest: Endotracheal tube tip lies at the level of the sheryl. There are multifocal consolidations of the right lung involving most extensively in the lower lobe though also involving portions of the upper and middle lobes. There are milder posterior opacities in the left lower lobe. Aerated lung parenchyma bilaterally demonstrates a relatively diffuse groundglass appearance. There is also intralobular septal thickening towards the lung periphery. Mild emphysema is noted with upper lobe predominance. Posterior calcifications in the right hemithorax are favored to be pleural in origin. No significant pleural effusion. Limited assessment of the mediastinum without intravenous contrast. A few mildly enlarged lymph nodes are suspected. There is cardiomegaly without pericardial effusion. Coronary artery calcifications are present. There is atherosclerotic calcification along the aorta. No axillary lymphadenopathy is present. There is chronic appearing fracture of the distal left clavicle. Multilevel degenerative changes are noted in the thoracic spine. Abdomen/Pelvis: The liver is homogeneous in attenuation without intrahepatic biliary ductal dilatation. Status post cholecystectomy. The unenhanced spleen, pancreas, and adrenal glands are within normal limits. The unenhanced kidneys are unremarkable without hydronephrosis. No obstructing renal or ureteral calculi are present. The urinary bladder is decompressed with a Stanford catheter. The uterus and adnexa are grossly unremarkable. No evidence of bowel obstruction. Moderate to large amount of stool is present in the colon. There is colonic diverticulosis without convincing diverticulitis. No significant bowel wall thickening is seen. Appendix appears nondilated. No free fluid or free air is identified. There is atherosclerotic calcification along the aorta and iliac arteries. No lymphadenopathy is seen, though assessment is limited in the absence of intravenous contrast. There is evidence of prior ventral hernia repair. Redemonstrated structure in the anterior abdominal wall to the right of midline measuring up to 3.4 cm in diameter and 20 Hounsfield units, without significant change from 06/25/2020; this may represent a seroma. Degenerative changes are noted in the bilateral sacroiliac joints and spine. Redemonstrated grade 1 anterolisthesis of L4 on L5. CT/CT abdomen pelvis wo con IMPRESSION: 1. Multifocal right lung consolidation, most extensive in the lower lobe, suspicious for pneumonia. 2. Mild diffuse groundglass opacity and interlobular septal thickening, suggesting a degree of edema. 3. Endotracheal tube tip at the level of the sheryl. 4. Few mildly enlarged mediastinal lymph nodes, which may be reactive. 5. Coronary artery calcifications. Correlation with cardiac risk factors is recommended. 6. Moderate to large volume of stool. Colonic diverticulosis without diverticulitis. This critical result was discussed with Dr. Cruz on 09/10/2021 1:46 AM, and it was ascertained that the content and urgency of the report was understood at the time of direct communication.
--- NOTE | ~2021-09-09 | XR_ITS ---
EXAMINATION: XR ABDOMEN KUB CLINICAL INDICATION: Abdominal pain with nausea and vomiting. COMPARISON: None TECHNIQUE: AP view of the abdomen. FINDINGS: There is large amount of stool and gas seen throughout the colon with mild gaseous distention of small bowel loops. There is no organomegaly. The gallbladder has been surgically removed with francesco the right upper quadrant. There is a right basilar dense atelectasis or diaphragmatic pleural thickening. No gross bony abnormality. XR/XR KUB IMPRESSION: Moderate distended colon with stool and gas and small bowel loops with gas likely secondary to significant constipation.
--- NOTE | ~2021-09-09 | XR_ITS ---
EXAMINATION: XR CHEST CLINICAL INFORMATION: Status post tracheostomy COMPARISON: Earlier on same day and September 23, 2021 TECHNIQUE: AP portable view of the chest was obtained. FINDINGS: Patient again noted to be status post right lung surgery with suture lines in place. The tracheostomy tip is 5 cm above the sheryl. Since previous study there has been some increase in disease at the right base which may be related to atelectasis or pneumonitis. There remains consolidation in the retrocardiac region with the left hemidiaphragm being obscured. The cardiopericardial silhouette is mildly enlarged. No evidence of pulmonary edema. No pneumothorax. Nasogastric tube has been removed. Right internal jugular central venous catheter in place with tip within the lower right atrium. Degenerative spurring about the left shoulder noted. XR/XR chest 1V IMPRESSION: Continued bibasilar disease left greater than right. Tracheostomy tube in place.
--- NOTE | ~2021-09-09 | CT_ITS ---
EXAMINATION: CT HEAD WITHOUT CONTRAST CLINICAL INFORMATION: Altered mental status, intubated. COMPARISON: CT head dated from 08/23/2021. TECHNIQUE: Contiguous axial imaging was performed from the skull base to vertex without intravenous administration of contrast. This CT examination was performed using dose optimization techniques as appropriate, variously including the following: *Automated exposure control *Adjustment of mA and/or kV according to patient size (this includes techniques or standardized protocols for targeted exams where dose is matched to indication/reason for exam; i.e. extremities or head) *Use of iterative reconstruction technique DLP: 631 mGy-cm FINDINGS: Expected evolution of a right parietal lobe infarction without evidence of hemorrhagic transformation or significant mass effect. There is no evidence of acute intracranial hemorrhage or new edematous territorial infarction. A few foci of hypoattenuation in the periventricular and deep white matter are consistent with mild microangiopathy. Flores-white matter differentiation is preserved. Proportional prominence of the ventricles and sulcal spaces. No evidence for obstructive hydrocephalus. No abnormal mass effect or midline shift. No extra-axial fluid collections. No acute soft tissue or osseous abnormalities. The mastoid air cells and paranasal sinuses are clear. Partial visualization of an endotracheal and possibly enteric tube.. 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 No hemorrhagic conversion. No new abnormality.
--- NOTE | ~2021-09-09 | XR_ITS ---
EXAMINATION: XR CHEST CLINICAL INFORMATION: Tube placement COMPARISON: Same day earlier film TECHNIQUE: Frontal view of the chest was obtained. FINDINGS: The ET tube is 4 cm above the sheryl. There is an NG tube coursing into the stomach. Proximal port in the region of the fundus. Catheter overlying the right atrium. There is no pneumothorax. Continued basilar opacities may represent areas of infiltrate. Continued vascular congestion but there does appear to be some improvement. XR/XR chest 1V IMPRESSION: NG tube coursing into the stomach. ET tube in good position 4 cm above the sheryl. Continued bibasilar opacities Improving pulmonary vascularity
--- NOTE | ~2021-09-09 | XR_ITS ---
EXAMINATION: XR CHEST CLINICAL INFORMATION: Left IJ central line COMPARISON: CT from earlier today TECHNIQUE: Frontal view of the chest was obtained. FINDINGS: Endotracheal tube tip lies 2.4 cm above the sheryl. Left IJ central line tip lies in the region of the cavoatrial junction. Enteric tube courses into the stomach. Lung volumes are symmetric. Redemonstrated region of the mid to lower right lung consolidation. Mild patchy opacity suspected in the left upper lung. No appreciable pneumothorax or significant pleural effusion. Central vasculature is prominent suggesting a degree of congestion/interstitial edema. Cardiac silhouette is enlarged. Calcification is present at the aortic arch. Redemonstrated distal left clavicular deformity. XR/XR chest 1V IMPRESSION: Left IJ central line tip in the region of the cavoatrial junction. Redemonstrated mid to lower right lung opacity and findings suggesting congestion/interstitial edema.
--- NOTE | ~2021-09-09 | XR_ITS ---
EXAMINATION: XR CHEST CLINICAL INFORMATION: ETT position. COMPARISON: Chest x-ray 09/20/2021. TECHNIQUE: Frontal view of the chest was obtained. FINDINGS: There is mild cardiomegaly with normal pulmonary vascularity. The lungs are well expanded with patchy opacities seen in both lung bases, likely atelectasis or infiltrate. Positions of the right central venous catheter, enteric tube and endotracheal tube are stable. There is mild degenerative changes of the left shoulder joint. XR/XR chest 1V IMPRESSION: Cardiomegaly with bibasilar patchy opacities, likely atelectasis versus infiltrate. No change in support lines and catheters.
--- NOTE | ~2021-09-09 | XR_ITS ---
EXAMINATION: XR CHEST CLINICAL INFORMATION: Possible aspiration pneumonitis. COMPARISON: This radiograph 09/12/2021. TECHNIQUE: Frontal view of the chest was obtained. FINDINGS: The left internal jugular catheter terminates in projection with the right atrium. Cardiac silhouette remains enlarged. Focal airspace opacity is present at the right lung base associated with mild blunting of the right costophrenic sulcus. Right apical pulmonary chain sutures are again noted. No pneumothoraces visualized. Mild left base airspace opacity. An ununited left clavicular fracture is visualized. XR/XR chest 1V IMPRESSION: -Right base airspace disease and small right pleural effusion new compared with 09/12/2021 which could represent aspiration pneumonitis. -Unchanged mild left base airspace disease compared with 09/12/2021. -Stable cardiomegaly.
--- NOTE | ~2021-09-09 | XR_ITS ---
EXAMINATION: XR CHEST CLINICAL INFORMATION: Status post reintubation COMPARISON: Chest 09/16/2021 TECHNIQUE: Frontal view of the chest was obtained. FINDINGS: There is mild cardiomegaly with prominent pulmonary vascularity. Patchy airspace opacities are visualized bilaterally unchanged to previous study. Position of endotracheal tube, right jugular central catheter are stable. The enteric tube has been removed. No gross bony abnormality. XR/XR chest 1V IMPRESSION: The enteric tube has been removed. Cardiomegaly, endotracheal tube and right-sided central venous catheter are stable. There is bilateral airspace facet is unchanged to previous study.
--- NOTE | ~2021-09-09 | XR_ITS ---
EXAMINATION: XR CHEST CLINICAL INFORMATION: Respiratory distress. COMPARISON: Chest radiograph 09/14/2021 11:35 AM. TECHNIQUE: Frontal view of the chest was obtained. FINDINGS: Multiple external artifacts overlie the thorax. The cardiac silhouette is enlarged. Dense aortic calcific atherosclerosis noted. Mild blunting of the right costophrenic sulcus is visualized. Minimal blunting of the left costophrenic sulcus. No pneumothoraces. Right apical pulmonary chain sutures identified. Diffuse vascular indistinctness is identified along with possible Nathalie B lines within the left middle lung zone. XR/XR chest 1V IMPRESSION: -Findings suspicious for moderate interstitial pulmonary edema increased compared with 09/14/2021 11:35 AM. -Small lateral pleural effusions increased compared with 09/14/2021 11:35 AM. -Stable cardiomegaly.
--- NOTE | ~2021-09-09 | XR_ITS ---
EXAMINATION: XR CHEST CLINICAL INFORMATION: Hypoxia. Intubated. COMPARISON: 09/23/2021 TECHNIQUE: Frontal view of the chest was obtained. FINDINGS: Endotracheal tube terminates 2.37 sheryl. Right internal jugular central venous catheter terminates near the inferior cavoatrial junction. Enteric tube terminates within the left upper quadrant. Small left pleural effusion and accompanying atelectasis results in obscuration of left hemidiaphragm, unchanged. Right pleural calcifications unchanged. Chain sutures at the right lung apex. XR/XR chest 1V IMPRESSION: * Stable small left pleural effusion and atelectasis obscuring the left hemidiaphragm. * No new or acute pulmonary parenchymal abnormalities. * Lines and tubes as above.
--- NOTE | 2021-09-09 21:55 | ECG_ITS ---
Test Reason : SOB Blood Pressure : / mmHG Vent. Rate : 102 BPM Atrial Rate : 102 BPM P-R Int : 182 ms QRS Dur : 154 ms QT Int : 406 ms P-R-T Axes : 019 -69 014 degrees QTc Int : 529 ms Sinus tachycardia with Premature atrial complexes Left anterior fascicular block Right bundle branch block Nonspecific ST abnormality Abnormal ECG When compared with ECG of 23-AUG-2021 03:58, T wave inversion less evident in Inferior leads Heart rate has increased Referred By: Judy Cruz Electronically Signed By:CHRISTOPHER SOSA MD
--- NOTE | 2021-09-09 22:08 | ED.AMS ---
HPI - Altered Mental Status General Chief Complaint: Upper Respiratory Symptoms Stated Complaint: AMS Time Seen by Provider: 09/09/21 21:54 Source: patient and EMS Mode of arrival: EMS History of Present Illness HPI narrative: 71- year-old female with history of COPD, CVA, CHF is brought in via EMS for son's concerns regarding patient's mentation. Patient denies any fevers, chills and states that she wears oxygen home and says that her abdomen hurts but otherwise denies chest pain/palpitations. EMS reports that patient was hypoxic on arrival with 88% on 2 L. Related Data Home Medications Medication Instructions Recorded Confirmed atorvastatin 40 mg tablet 40 mg PO BEDTIME tab 08/19/20 08/22/21 diltiazem HCl 120 mg 120 mg PO BID cap 08/19/20 08/22/21 capsule,extended release 12 hr guaifenesin 600 mg tablet, 600 mg PO BID 08/30/20 08/22/21 extended release 12 hr (Mucinex) ipratropium 0.5 mg-albuterol 3 mg 3 ml INHALATION Q6H PRN 08/30/20 08/22/21 (2.5 mg base)/3 mL nebulization soln clonazepam 0.5 mg tablet 0.25 mg PO BEDTIME PRN tab 10/04/20 08/22/21 dicyclomine 10 mg capsule 10 mg PO TIDWM cap 10/04/20 08/22/21 levothyroxine 175 mcg tablet 175 mcg PO DAILY@0630 tab 10/04/20 08/22/21 omeprazole 20 mg capsule,delayed 20 mg PO DAILY cap 10/04/20 08/22/21 release lactulose 10 gram/15 mL oral 15 ml PO BID PRN 10/25/20 08/22/21 solution furosemide 20 mg tablet 60 mg PO DAILY tab 11/30/20 08/22/21 cyanocobalamin (vitamin B-12) 1,000 mcg IM Q30D 03/31/21 08/22/21 1,000 mcg/mL injection solution gabapentin 300 mg capsule 300 mg PO BEDTIME 03/31/21 08/22/21 acetaminophen 325 mg tablet 650 mg PO Q4H PRN 05/25/21 08/22/21 aspirin 81 mg chewable tablet 81 mg PO DAILY 05/25/21 08/22/21 buspirone 7.5 mg tablet 1 tab PO BID 05/25/21 08/22/21 fluticasone furoate 200 1 inh INHALATION BEDTIME 05/25/21 08/22/21 mcg-vilanterol 25 mcg/dose inhalation powder (Breo Ellipta) oxybutynin chloride 15 mg 15 mg PO BID 05/25/21 08/22/21 tablet,extended release 24 hr Previous Rx's Medication Instructions Recorded albuterol sulfate 90 mcg/actuation 2 puff PO DAILY PRN #18 g 09/22/20 aerosol inhaler mirabegron 50 mg tablet,extended 50 mg PO BID 30 Days #60 tab 12/03/20 release 24 hr (Myrbetriq) acetazolamide 250 mg tablet 250 mg PO DAILY #30 tab 06/01/21 cefuroxime axetil 500 mg tablet 500 mg PO BID #10 tab 08/28/21 Allergies Allergy/AdvReac Type Severity Reaction Status Date / Time morphine [Morphine] Allergy Unknown UNKNOWN Verified 05/25/21 12:58 Review of Systems Review of Systems: Pertinent positives and negatives as stated in HPI 10 point review of systems is otherwise negative. [facility] Past Medical History Source: nursing notes reviewed Medical History Atherosclerotic cardiovascular disease Atrial arrhythmia Bifascicular block Chronic diastolic (congestive) heart failure COPD (chronic obstructive pulmonary disease) COPD (chronic obstructive pulmonary disease) Enuresis Nonrheumatic aortic (valve) stenosis On home oxygen therapy DHEERAJ (obstructive sleep apnea) Respiratory failure with hypoxia and hypercapnia Thoracic aortic aneurysm (TAA) Urge incontinence Surgical History History of umbilical hernia repair Family History Family History Father No problems noted. Mother No problems noted. Social History Social History Household Members: Children Housing: Apartment Housing Other:: lives alone - unsure if house or apt Do you presently have visiting nurse or other home services: No (unknown) Unable to assess alcohol history related to: Unknown Alcohol intake: never Patient Tobacco Use Status: Current everyday Tobacco user Advance Directives: Yes Advance Directives on File: Yes Advance Directives Date on File: 05/25/21 service: No Current occupational status: disabled Physical Exam Vital Signs: Vital Signs: Last Vital Signs Temp 98.5 F 09/10/21 00:26 Pulse 98 09/10/21 00:26 Resp 18 09/10/21 00:26 BP 152/74 H 09/10/21 00:26 Pulse Ox 98 09/10/21 00:26 Oxygen Flow Rate 4 09/09/21 22:09 Body Mass Index 32.8 VITAL SIGNS: Reviewed. GENERAL: Elderly, chronically ill, in no acute distress. HEAD: Normocephalic/atraumatic EYES: PERRLA, EOMI OROPHARYNX: no oral lesions noted, posterior pharynx clear, dry mucosa NECK: Supple, no adenopathy LUNGS: Decreased breath sounds, mild rales noted without expiratory wheeze, increased work of breathing with tachypnea, oxygen is in place (baseline may use is 2 L). SpO2<94> on 4 L CARDIOVASCULAR: Regular rate and rhythm without noted murmurs, no JVD but 3+ bilateral extremity edema. ABDOMEN: Soft, diffuse tenderness noted with ventral hernia as well as a small 3 cm circumferential area of granulating tissue midline inferior to the umbilicus non-distended with bowel sounds. MUSCULOSKELETAL: No tenderness, deformities, or effusions noted on gross inspection. EXTREMITIES: No cyanosis, clubbing or edema, area of ecchymosis noted to the left upper extremity as well as an area at the left lower quadrant of the abdomen SKIN: Inspection of the skin reveals no rashes NEUROLOGIC: Alert and oriented x 3. Strength and sensation to light touch were grossly intact x 4. Course Course Course Narrative: 71-year-old female with history and clinical presentation suggestive CHF/COPD exacerbation. All investigations reviewed and picture is most consistent with mixed COPD and CHF exacerbation. Due to patient's declining mental status despite improvement after being placed on BiPAP the decision was made to intubate for airway protection. 0015: I suspect infection. Reevaluation(s) Reevaluation #1: Intubated for declining mental status despite improvements in respiration. Time: 23:30 Reevaluation #2: I discussed the case with the commercial sales manager who accepts admission. Time: 23:54 MDM - Altered Mental Status Lab Data Result diagrams: 09/09/21 22:41 09/09/21 22:40 Labs: Lab Results 09/09/21 09/09/21 09/09/21 Range/Units 22:40 22:40 22:40 WBC (4.8-10.8) X10*3/uL RBC (4.20-5.50) X10*6/uL Hgb (12.0-16.0) g/dl Hct (37.0-47.0) % MCV (80.0-98.0) fL MCH (27.0-33.0) pg MCHC (31.0-35.0) g/dl RDW (11.0-16.0) % Plt Count (160-400) X10*3/uL MPV (9.4-12.3) fL Immature Gran % (Auto) (0.0-0.4) % Neut % (Auto) (45-73) % Lymph % (Auto) (20-40) % [place] % (Auto) (2-11) % Eos % (Auto) (0-4) % Baso % (Auto) (0-2) % Lymph # (Auto) (1.2-4.9) X10*3/uL [place] # (Auto) (0.1-1.2) X10*3/uL Eos # (Auto) (0.0-0.4) X10*3/uL Baso # (Auto) (0.0-0.2) X10*3/uL Abs Immat Gran (auto) (0.00-0.03) X10*3/uL Absolute Neuts (auto) (2.0-8.3) x10*3/uL Absolute Nucleated RBC (0.0-0.012) X10*3/uL Nucleated RBC % (auto) (0.0-0.2) /100WBC PT 12.0 (9.9-13.0) SEC INR 1.1 (0.9-1.1) VBG pH (7.32-7.43) VBG pCO2 mmHg VBG pO2 mmHg VBG HCO3 (22-26) mmol/L VBG O2 Saturation % VBG Base Excess mmol/L Sodium 144 (135-145) mmol/L Potassium 3.8 (3.3-5.1) mmol/L Chloride 104 (96-108) mmol/L Carbon Dioxide 33 H (22-29) mmol/L Anion Gap 11 L (12-20) BUN 12 (9-16) mg/dL Creatinine 0.78 (0.5-1.4) mg/dL Estim Creat Clear Calc 79.5 Estimated GFR > 60 Random Glucose 129 H (60-115) mg/dL Lactic Acid (0.5-2.0) mmol/L Calcium 8.7 (8.4-10.2) mg/dL Total Bilirubin 0.8 (0.0-1.0) mg/dL AST 19 D (5-31) U/L ALT 16 (0-31) U/L Alkaline Phosphatase 114 (39-117) U/L Troponin I High Sens 35.9 H* D (<3.5-17.0) ng/L B-Natriuretic Peptide 1378 H (<100) pg/mL Total Protein 7.0 D (6.5-8.0) g/dL Albumin 4.2 D (3.5-5.0) g/dL Urine Color Urine Appearance Urine pH (5.0-8.0) Ur Specific [place] (1.005-1.025) Urine Protein (NEG-TRACE) MG/DL Urine Glucose (UA) (NEG) MG/DL Urine Ketones (NEG) MG/DL Urine Blood (NEG) Urine Nitrite (NEG) Ur Leukocyte Esterase (NEG) Urine RBC (0) /HPF Urine WBC (0-4) /HPF Ur Squamous Epith Cells /LPF Urine Bacteria /LPF COVID-19 ([facility]) (Negative) COVID-19 Clin Com 09/09/21 09/09/21 09/09/21 Range/Units 22:41 22:41 22:41 WBC 9.6 (4.8-10.8) X10*3/uL RBC 3.62 L (4.20-5.50) X10*6/uL Hgb 10.8 L (12.0-16.0) g/dl Hct 36.1 L (37.0-47.0) % MCV 99.7 H (80.0-98.0) fL MCH 29.8 (27.0-33.0) pg MCHC 29.9 L (31.0-35.0) g/dl RDW 12.8 (11.0-16.0) % Plt Count 215 (160-400) X10*3/uL MPV 9.1 L (9.4-12.3) fL Immature Gran % (Auto) 0.6 H (0.0-0.4) % Neut % (Auto) 69.4 (45-73) % Lymph % (Auto) 15.6 L (20-40) % [place] % (Auto) 12.0 H (2-11) % Eos % (Auto) 1.6 (0-4) % Baso % (Auto) 0.8 (0-2) % Lymph # (Auto) 1.5 (1.2-4.9) X10*3/uL [place] # (Auto) 1.2 (0.1-1.2) X10*3/uL Eos # (Auto) 0.2 (0.0-0.4) X10*3/uL Baso # (Auto) 0.1 (0.0-0.2) X10*3/uL Abs Immat Gran (auto) 0.06 H (0.00-0.03) X10*3/uL Absolute Neuts (auto) 6.7 (2.0-8.3) x10*3/uL Absolute Nucleated RBC 0.000 (0.0-0.012) X10*3/uL Nucleated RBC % (auto) 0.0 (0.0-0.2) /100WBC PT (9.9-13.0) SEC INR (0.9-1.1) VBG pH (7.32-7.43) VBG pCO2 mmHg VBG pO2 mmHg VBG HCO3 (22-26) mmol/L VBG O2 Saturation % VBG Base Excess mmol/L Sodium (135-145) mmol/L Potassium (3.3-5.1) mmol/L Chloride (96-108) mmol/L Carbon Dioxide (22-29) mmol/L Anion Gap (12-20) BUN (9-16) mg/dL Creatinine (0.5-1.4) mg/dL Estim Creat Clear Calc Estimated GFR Random Glucose (60-115) mg/dL Lactic Acid 0.5 (0.5-2.0) mmol/L Calcium (8.4-10.2) mg/dL Total Bilirubin (0.0-1.0) mg/dL AST (5-31) U/L ALT (0-31) U/L Alkaline Phosphatase (39-117) U/L Troponin I High Sens (<3.5-17.0) ng/L B-Natriuretic Peptide (<100) pg/mL Total Protein (6.5-8.0) g/dL Albumin (3.5-5.0) g/dL Urine Color Urine Appearance Urine pH (5.0-8.0) Ur Specific [place] (1.005-1.025) Urine Protein (NEG-TRACE) MG/DL Urine Glucose (UA) (NEG) MG/DL Urine Ketones (NEG) MG/DL Urine Blood (NEG) Urine Nitrite (NEG) Ur Leukocyte Esterase (NEG) Urine RBC (0) /HPF Urine WBC (0-4) /HPF Ur Squamous Epith Cells /LPF Urine Bacteria /LPF COVID-19 ([facility]) Negative (Negative) COVID-19 Clin Com See Note 09/09/21 09/09/21 Range/Units 22:41 22:48 WBC (4.8-10.8) X10*3/uL RBC (4.20-5.50) X10*6/uL Hgb (12.0-16.0) g/dl Hct (37.0-47.0) % MCV (80.0-98.0) fL MCH (27.0-33.0) pg MCHC (31.0-35.0) g/dl RDW (11.0-16.0) % Plt Count (160-400) X10*3/uL MPV (9.4-12.3) fL Immature Gran % (Auto) (0.0-0.4) % Neut % (Auto) (45-73) % Lymph % (Auto) (20-40) % [place] % (Auto) (2-11) % Eos % (Auto) (0-4) % Baso % (Auto) (0-2) % Lymph # (Auto) (1.2-4.9) X10*3/uL [place] # (Auto) (0.1-1.2) X10*3/uL Eos # (Auto) (0.0-0.4) X10*3/uL Baso # (Auto) (0.0-0.2) X10*3/uL Abs Immat Gran (auto) (0.00-0.03) X10*3/uL Absolute Neuts (auto) (2.0-8.3) x10*3/uL Absolute Nucleated RBC (0.0-0.012) X10*3/uL Nucleated RBC % (auto) (0.0-0.2) /100WBC PT (9.9-13.0) SEC INR (0.9-1.1) VBG pH 7.23 L (7.32-7.43) VBG pCO2 87 mmHg VBG pO2 82 mmHg VBG HCO3 37 H (22-26) mmol/L VBG O2 Saturation 93.0 % VBG Base Excess 6.4 mmol/L Sodium (135-145) mmol/L Potassium (3.3-5.1) mmol/L Chloride (96-108) mmol/L Carbon Dioxide (22-29) mmol/L Anion Gap (12-20) BUN (9-16) mg/dL Creatinine (0.5-1.4) mg/dL Estim Creat Clear Calc Estimated GFR Random Glucose (60-115) mg/dL Lactic Acid (0.5-2.0) mmol/L Calcium (8.4-10.2) mg/dL Total Bilirubin (0.0-1.0) mg/dL AST (5-31) U/L ALT (0-31) U/L Alkaline Phosphatase (39-117) U/L Troponin I High Sens (<3.5-17.0) ng/L B-Natriuretic Peptide (<100) pg/mL Total Protein (6.5-8.0) g/dL Albumin (3.5-5.0) g/dL Urine Color YELLOW Urine Appearance CLEAR Urine pH 6.5 (5.0-8.0) Ur Specific [place] 1.010 (1.005-1.025) Urine Protein NEG (NEG-TRACE) MG/DL Urine Glucose (UA) NEG (NEG) MG/DL Urine Ketones NEG (NEG) MG/DL Urine Blood NEG (NEG) Urine Nitrite NEG (NEG) Ur Leukocyte Esterase 2+ H (NEG) Urine RBC 1-4 (0) /HPF Urine WBC 15-29 H (0-4) /HPF Ur Squamous Epith Cells 1+ /LPF Urine Bacteria 2+ /LPF COVID-19 ([facility]) (Negative) COVID-19 Clin Com ECG Data ECG #1: Attestation: I personally reviewed and interpreted this ECG as follows: Prior ECG tracings: available for review (08/23/2021 no acute changes on comparison) Interpretation: Sinus tachycardia with PACs and right bundle branch block, no STEMI, [place] within normal limits Procedures Intubation sedative: Etomidate Mg Given: 20 paralytic: Rocuronium Mg Given: 100 Laryngoscope: fiber optic video scope ET Tube Size: 7.5 ET Tube Uncuffed: No Tube Secured Depth (cm): 25 Tube Secured Location: lips Tube Placement Confirmation: visualized tube passing through cords, equal breath sounds bilaterally, no breath sounds over epigastrium and confirmation by capnometry Patient Tolerated Procedure: well Intubation Complications: none Critical Care Time Critical Care Time Critical Care Time: Yes Total Critical Care Time: 45 Attestation: I personally attest to this time spent taking care of the patient. Discharge Plan Discharge Clinical Impression: Acute respiratory failure, CHF exacerbation, COPD exacerbation, Altered mental state Patient Disposition: Admitted As Inpatient Interventions: Admission Worksheet (ED) Last Done: 09/10/21 01:02
[2021-09-09 22:09] VITALS: BP 138/76; BP 147/88; PULSE 90; PULSE 94; RESP 24; TEMP 36.9; O2SAT 89; O2SAT 94; BMI 32.8
--- NOTE | 2021-09-09 22:21 | PC.NURSE ---
broderick cath inserted pt voided about 450cc yellow
[2021-09-09] MEDS: Furosemide 100 MG/10 ML VIAL 60 MG IVPUSH ×2 (22:47→23:38)
[2021-09-09 22:48] LABS: Appearance Urine CLEAR; Color Urine YELLOW; Glucose Urine UA NEG (NEG); Leukocyte Esterase Urine 2+ (NEG); MANUAL DIFF FLAG NO; Nitrite Urine NEG (NEG); PH 6.5 (5.0-8.0); UACC Culture Trigger YES; Urine Blood NEG (NEG); Urine Ketones NEG (NEG); Urine Protein NEG (NEG-TRACE)
[2021-09-09 22:50] LABS: Basophils Absolute Auto 0.1 X10*3/uL (0.0-0.2); Basophils Percent Auto 0.8 % (0-2); Eosinophils Absolute Auto 0.2 X10*3/uL (0.0-0.4); Eosinophils Percent Auto 1.6 % (0-4); Hematocrit 36.1 % (37.0-47.0); Hemoglobin 10.8 g/dl (12.0-16.0); Imm Gran Abs Auto 0.06 X10*3/uL (0.00-0.03); Imm Gran Pct Auto 0.6 % (0.0-0.4); Lymphocytes Absolute Auto 1.5 X10*3/uL (1.2-4.9); Lymphocytes Percent Auto 15.6 % (20-40); Mean Corpuscular HGB Conc 29.9 g/dl (31.0-35.0); Mean Corpuscular Hemoglobin 29.8 pg (27.0-33.0); Mean Corpuscular Volume 99.7 fL (80.0-98.0); Mean Platelet Volume 9.1 fL (9.4-12.3); Monocytes Absolute Auto 1.2 X10*3/uL (0.1-1.2); Neutrophils Absolute Auto 6.7 x10*3/uL (2.0-8.3); Neutrophils Percent Auto 69.4 % (45-73); Platelet Count 215 X10*3/uL (160-400); Red Blood Count 3.62 X10*6/uL (4.20-5.50); Red Cell Distribution Width 12.8 % (11.0-16.0); White Blood Count 9.6 X10*3/uL (4.8-10.8)
[2021-09-09 22:54] VITALS: BP 130/97; PULSE 109; RESP 19
[2021-09-09 22:54] LABS: VBG Base Excess 6.4 mmol/L; VBG HCO3 37 mmol/L (22-26); VBG pCO2 87 mmHg; VBG pH 7.23 (7.32-7.43); VBG pO2 82 mmHg
[2021-09-09 22:57] LABS: INTERNATIONAL NORM RATIO 1.1 (0.9-1.1)
[2021-09-09 23:01] LABS: Venous Blood Gas Refer to POC result
[2021-09-09 23:07] LABS: COVID-19 Test Negative (Negative); IDNOW Serial# 9DD0AD1C
[2021-09-09 23:08] LABS: Lactic Acid 0.5 mmol/L (0.5-2.0)
[2021-09-09 23:09] VITALS: BP 163/96; O2SAT 97
--- NOTE | 2021-09-09 23:09 | PC.NURSE ---
pt not following commands, son at bedside, pt has not been keeping her 02 nc on at home. pt since arrival has become more weakness, not responding to commands. pt is being prep for intubation, resp at bedside.
[2021-09-09 23:13] LABS: Alanine Aminotransferase 16 U/L (0-31); Albumin Level 4.2 g/dL (3.5-5.0); Alkaline Phosphatase 114 U/L (39-117); Anion Gap 11 (12-20); Aspartate Amino Transferase 19 U/L (5-31); Bilirubin Total 0.8 mg/dL (0.0-1.0); Blood Urea Nitrogen 12 mg/dL (9-16); Calcium 8.7 mg/dL (8.4-10.2); Carbon Dioxide 33 mmol/L (22-29); Chloride 104 mmol/L (96-108); Creatinine Clr Calc Pharmacy 79.5; Estimated Glomerular Filt Rate > 60; Glucose Random 129 mg/dL (60-115); Potassium 3.8 mmol/L (3.3-5.1); Sodium 144 mmol/L (135-145)
[2021-09-09 23:18] LABS: B Type Natriuretic Peptide 1378 pg/mL (<100)
[2021-09-09] MEDS: Etomidate 20 MG/10 ML VIAL IVPUSH (23:18)
[2021-09-09] MEDS: Rocuronium Bromide 50 MG/5 ML VIAL 100 MG IVPUSH (23:20)
[2021-09-09 23:41] VITALS: BP 127/75; PULSE 105; RESP 18; O2SAT 100
[2021-09-09] MEDS: propofoL 1,000 MG/100 ML VIAL 2.86 MG IVCONT (23:41)
[2021-09-09 23:56] VITALS: BP 138/66; PULSE 85; RESP 16; TEMP 36.6; O2SAT 100
[2021-09-10] VITALS (49 sets, daily range): BP systolic 81–152; BP diastolic 37–112; PULSE 76–123; RESP 14–24; TEMP 31–37.5; O2SAT 91–100; BMI 33.6
[2021-09-10 00:05] LABS: Bacteria Urine 2+ /LPF; Squamous Epithelial Cell Urine 1+ /LPF
[2021-09-10 00:07] LABS: Troponin-I High Sensitivity 35.9 ng/L (<3.5-17.0)
--- NOTE | 2021-09-10 00:17 | PM.CCHP ---
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 However according to the ER physician her mentation was completely normal and the patient was following commands, given the laboratories and the fact the patient had respiratory acidosis with a high pCO2 she was tried on BiPAP but she quickly decompensated and she is slumped over, at this point she was concerned about the patient's protection of airway and the patient was intubated. During the ER initial assessment the patient had denied any fevers, chills and stateed that she wears oxygen home and said that her abdomen hurts but otherwise denied chest pain/palpitations.? EMS reports that patient was hypoxic on arrival with 88% on 2L. Laboratory workup in [place] was significant for H&H of 10.8 and 36.1, venous blood gas revealed pH of 7.3, pCO2 of 87, PO2 of 82, HC03 of 37, base excess 6.4.? Electrolytes and renal function were completely unremarkable.? Carbon dioxide 33. ?BMP 1378. Although the urinalysis does not show any nitrates, it does have plenty of leukocytes, white blood cells and bacteria present.? COVID negative study. ?Patient did have head CT without new changes but with prior right parietal lobe infarct. CT and CT angiogram reveal a multi focal pneumonia on the right side, evidence of pulmonary edema, cardiomegaly, ground-glass opacities, no pulmonary embolism, no intra-abdominal Except for significant amount of stool. Patient was given Lasix in the ER as well as A DuoNeb and Zosyn. Patient is not septic ROS:? As above otherwise unobtainable as the patient is currently intubated Past Medical History:? As above Past Surgical History:? Umbilical hernia repair Recurrent incisional hernia Family history: ?Unknown Social History:? Lives at home in an apartment, alone, every day tobacco consumer, quantity unknown, disable, no alcohol intake or per chart. CODE STATUS:? Full code ?Allergies: ?Morphine Home Medications:? Please see med rec patient does not appear septic, PHYSICAL EXAM: VS: ?Blood pressure 152/74, heart rate 90, respirations 18, O2 sat 98% on a mechanical ventilation with FiO2 of 60, temperature 95?. ?AC, 16, 450, 5, 60% ???General:? Intubated, sedated. ?Skin: ?If there is a wound measuring approximately the size of a quarter on the right side of the lower abdomen around a previous surgical scar, the bed appears yellow in color with surrounding erythema consistent with a healing wound but no cellulitic appearance, no discharge, no foul smell. ?Intact, no lesions, edema, erythema, clubbing or cyanosis.? No ulcers. ???HEENT:? Head is normocephalic, atraumatic, pupils equal round reactive to light accommodation bilaterally.? Extraocular movements appear intact.? Buccal mucosa is dry. Neck is supple without lymphadenopathy. ???Cardiac:? Clear S1-S2, no murmurs rubs or gallops. ???Pulmonary:? Coarse lung sounds bilaterally with significant right guide on the right middle and right lower lobe, expiratory wheezing bilaterally and throughout. ? ?? Abdomen:? Protuberant, positive bowel sounds in all 4 quadrants.? Soft, nontender, no rebound or guarding.?Musculoskeletal:? Passive range of motion of upper and lower extremities at the major joints reveal no cogwheeling.? There is 2+ pitting edema of the bilateral lower extremities up to the tibial plateau bilaterally, no asymmetry. ?Neurologic:? As above, otherwise unable to assess ??? Motor strength as above.?Vascular:? 2+ pulses upper and lower extremities distally. ? less than 2 seconds capillary refill bilateral toes and fingers.? SIGNIFICANT LABORATORY DATA:? As above REVIEW OF IMAGES: Chest x-ray IMPRESSION: Scattered bilateral opacities, most prominent on the right. Findings may represent an infectious or inflammatory process, however, asymmetrical pulmonary edema would also be within the differential. Clinical correlation is recommended. CT Chest/ ABD /PELVIS IMPRESSION: 1.? Multifocal right lung consolidation, most extensive in the lower lobe, suspicious for pneumonia. 2.? Mild diffuse groundglass opacity and interlobular septal thickening, suggesting a degree of edema. 3.? Endotracheal tube tip at the level of the sheryl. 4.? Few mildly enlarged mediastinal lymph nodes, which may be reactive. 5.? Coronary artery calcifications. Correlation with cardiac risk factors is recommended. 6.? Moderate to large volume of stool. Colonic diverticulosis without diverticulitis. CHEST CTA IMPRESSION: 1.? No central or proximal pulmonary embolus identified. Incomplete assessment of the distal vasculature due to respiratory motion artifact. 2.? Dilated main pulmonary artery suggesting pulmonary hypertension. 3.? Redemonstrated multifocal consolidations of the right lung, suspicious for pneumonia. 4.? Suspect mild pulmonary edema. 5.? Cardiomegaly. Head CT IMPRESSION: Expected evolution of a known right parietal lobe infarct. No hemorrhagic conversion. No new abnormality. EKG REVIEW: ?Sinus tachycardia with PACs, right bundle-branch block, age-indeterminate inferiorly changes, left axis deviation.? Rate is 102 beats per minute.? QTC 406.? No comparison available. ? ASSESSMENT AND PLAN: 1. Acute hypoxic respiratory failure with hypercapnia 2. Metabolic encephalopathy due to above 3. Decompensated diastolic heart failure 4. Urinary tract infection 5. Respiratory acidosis in the setting of 1. 6. Macrocytic Anemia NOS 7. History of COPD and O2 the pendant likely contributing to 1. 8. Focal consolidation on the right lower lobe likely nosocomial pneumonia although there is no white count and the appearance is questionable on CTA; there is no evidence of sepsis. 9. Paroxysmal Atrial fibrillation with rapid ventricular response Admit to ICU, continue with mechanical ventilation, repeat labs and ABG in the morning, BUmex IV, given the patient's consolidation on the right side and her recent admission to a hospital, blood cultures, sputum cx and gram stain. I do believe that she is to be treated with the antibiotics therefore will start vancomycin and Zosyn; ?steroids and nebulizers.? OG tube will be placed in will give her anticoagulation therapy via these. GI PROPHYLAXIS: PPI DVT PROPHYLAXIS: reportedly on Eliquis which can be administered via OG tube, but no prescription available at this time, in the meantime will use Lovenox. 0252 am Patient has had 2 consecutive low blood pressures below 100 systolic with a map between 48 and 53, at this point we will re-evaluate the possibility of sepsis although this is unlikely for the patient is being diuresed and also she is having episodes of rapid AFib which in turn causes poor cardiac contractility, poor cardiac output and therefore low blood pressure. I will start her on Levophed and was the blood pressure is more stable we will give Cardizem IV push and if needed a dripp; will get basic labs and lactic acid. I will place a Central Line under US. I doubt that the patient septic however if this was the case I am not able to give her 30 minutes kg for volume resuscitation given that the patient has acute diastolic heart failure exacerbation; this will worsen this. Critical care time used for critical evaluation of this patient, diagnosis, treatment and coordination of care, review her records and documentation TOTAL CRITICAL CARE TIME 90 MIN . Patient's care was discussed in detail with Dr. Ferrell.? He is aware of all the above as well as the plan of care for this patient. <ALEXANDER Garcia - Last Filed: 09/11/21 04:58> [facility] Past Medical History Medical History: Medical History Atherosclerotic cardiovascular disease Atrial arrhythmia Bifascicular block Chronic diastolic (congestive) heart failure COPD (chronic obstructive pulmonary disease) COPD (chronic obstructive pulmonary disease) Enuresis Nonrheumatic aortic (valve) stenosis On home oxygen therapy DHEERAJ (obstructive sleep apnea) Respiratory failure with hypoxia and hypercapnia Thoracic aortic aneurysm (TAA) Urge incontinence <ALEXANDER Garcia - Last Filed: 09/11/21 04:58> Family History Family History: Family History Father No problems noted. Mother No problems noted. <ALEXANDER Garcia - Last Filed: 09/11/21 04:58> Surgical History Surgical History: Surgical History (Updated 09/30/21 @ 09:44 by SLOANE Batista) H/O breast biopsy H/O breast biopsy History of umbilical hernia repair <ALEXANDER Garcia - Last Filed: 09/11/21 04:58> Social History Social History: Social History Household Members: Children Housing: Apartment Housing Other:: lives alone - unsure if house or apt Do you presently have visiting nurse or other home services: No (unknown) Unable to assess alcohol history related to: Unable to respond Alcohol intake: never Patient Tobacco Use Status: Current everyday Tobacco user Use of substances other than those prescribed or required for medical reasons: Unable to respond Currently Displaying Signs/Symptoms of Drug Intoxication Withdrawal: No Advance Directives: Yes Advance Directives on File: Yes Advance Directives Date on File: 05/25/21 Do you have thoughts of harming others: None Do you have a plan to hurt others: No Plan Recently lost weight without trying: Unsure service: No Current occupational status: disabled <ALEXANDER Garcia - Last Filed: 09/11/21 04:58> Meds Allergies/Adverse reactions: Allergies Allergy/AdvReac Type Severity Reaction Status Date / Time morphine [Morphine] Allergy Unknown UNKNOWN Verified 05/25/21 12:58 <ALEXANDER Garcia - Last Filed: 09/11/21 04:58> Active Medications: Current Medications Propofol (Diprivan) 1,000 mg in 100 mls @ 2.858 mls/hr IVCONT .Q24H GERMAN; Protocol Last Admin: 09/09/21 23:41 Dose: 5 mcg/kg/min, 2.86 mls/hr Documented by: <ALEXANDER Garcia - Last Filed: 09/11/21 04:58> Home medications: Home Medications Medication Instructions Recorded Confirmed Last Taken Type atorvastatin 40 mg tablet 40 mg PO BEDTIME tab 08/19/20 09/11/21 09/09/21 History diltiazem HCl 120 mg 120 mg PO BID cap 08/19/20 09/11/21 09/09/21 History capsule,extended release 12 hr ipratropium 0.5 mg-albuterol 3 mg 3 ml INHALATION BID 08/30/20 09/11/21 09/09/21 History (2.5 mg base)/3 mL nebulization soln clonazepam 0.5 mg tablet 0.25 mg PO BEDTIME PRN tab 10/04/20 09/11/21 08/21/21 History dicyclomine 10 mg capsule 10 mg PO TIDWM cap 10/04/20 09/11/21 09/02/21 History levothyroxine 175 mcg tablet 175 mcg PO DAILY@0630 tab 10/04/20 09/11/21 08/21/21 History omeprazole 20 mg capsule,delayed 20 mg PO DAILY@0630 cap 10/04/20 09/11/21 09/09/21 History release lactulose 10 gram/15 mL oral 15 ml PO BID PRN 10/25/20 09/11/21 08/21/21 History solution furosemide 20 mg tablet 40 mg PO BID@0900,1700 tab 11/30/20 09/11/21 09/09/21 History cyanocobalamin (vitamin B-12) 1,000 mcg IM Q30D 03/31/21 09/11/21 08/21/21 History 1,000 mcg/mL injection solution gabapentin 300 mg capsule 300 mg PO BEDTIME 03/31/21 09/11/21 09/09/21 History aspirin 81 mg chewable tablet 81 mg PO DAILY 05/25/21 09/11/21 09/09/21 History fluticasone furoate 200 1 inh INHALATION BEDTIME 05/25/21 09/11/21 09/09/21 History mcg-vilanterol 25 mcg/dose inhalation powder (Breo Ellipta) oxybutynin chloride 15 mg 15 mg PO BID 05/25/21 09/11/21 09/09/21 History tablet,extended release 24 hr apixaban 2.5 mg tablet 2.5 mg PO BID 09/11/21 09/11/21 09/09/21 History buspirone 7.5 mg tablet 1 tab PO BID 09/11/21 09/11/21 09/09/21 History tiotropium bromide 18 mcg capsule 1 cap INHALATION DAILY 09/11/21 09/11/21 09/09/21 History with inhalation device (Spiriva with HandiHaler) trazodone 50 mg tablet 0.5 tab PO BEDTIME PRN 09/11/21 09/11/21 Unknown History vilazodone 40 mg tablet (Viibryd) 1 tab PO DAILY 09/11/21 09/11/21 09/09/21 History <ALEXANDER Garcia - Last Filed: 09/11/21 04:58> Physical Exam Vital Signs: Vital Signs: Last Vital Signs Temp 97.8 F 09/09/21 23:56 Pulse 85 09/09/21 23:56 Resp 16 09/09/21 23:56 BP 138/66 09/09/21 23:56 Pulse Ox 100 09/09/21 23:56 Oxygen Flow Rate 4 09/09/21 22:09 Body Mass Index 32.8 <ALEXANDER Garcia - Last Filed: 09/11/21 04:58> Results Labs CBC and Chem 7: : 10/02/21 05:25 10/02/21 05:25 <ALEXANDER Garcia - Last Filed: 09/11/21 04:58> Labs: Laboratory Results - last 24 hr 09/09/21 09/09/21 09/09/21 22:40 22:40 22:40 MCV MCH MCHC RDW Plt Count MPV Immature Gran % (Auto) Neut % (Auto) Lymph % (Auto) [place] % (Auto) Eos % (Auto) Baso % (Auto) Lymph # (Auto) [place] # (Auto) Eos # (Auto) Baso # (Auto) Abs Immat Gran (auto) Absolute Neuts (auto) Absolute Nucleated RBC Nucleated RBC % (auto) PT 12.0 INR 1.1 VBG pH VBG pCO2 VBG pO2 VBG HCO3 VBG O2 Saturation VBG Base Excess Anion Gap 11 L Estim Creat Clear Calc 79.5 Estimated GFR > 60 Random Glucose 129 H Lactic Acid Calcium 8.7 Total Bilirubin 0.8 AST 19 D ALT 16 Alkaline Phosphatase 114 Troponin I High Sens 35.9 H* D B-Natriuretic Peptide 1378 H Total Protein 7.0 D Albumin 4.2 D Urine Color Urine Appearance Urine pH Ur Specific [place] Urine Protein Urine Glucose (UA) Urine Ketones Urine Blood Urine Nitrite Ur Leukocyte Esterase Urine RBC Urine WBC Ur Squamous Epith Cells Urine Bacteria COVID-19 ([facility]) COVID-19 Clin Com 09/09/21 09/09/21 09/09/21 22:41 22:41 22:41 MCV 99.7 H MCH 29.8 MCHC 29.9 L RDW 12.8 Plt Count 215 MPV 9.1 L Immature Gran % (Auto) 0.6 H Neut % (Auto) 69.4 Lymph % (Auto) 15.6 L [place] % (Auto) 12.0 H Eos % (Auto) 1.6 Baso % (Auto) 0.8 Lymph # (Auto) 1.5 [place] # (Auto) 1.2 Eos # (Auto) 0.2 Baso # (Auto) 0.1 Abs Immat Gran (auto) 0.06 H Absolute Neuts (auto) 6.7 Absolute Nucleated RBC 0.000 Nucleated RBC % (auto) 0.0 PT INR VBG pH VBG pCO2 VBG pO2 VBG HCO3 VBG O2 Saturation VBG Base Excess Anion Gap Estim Creat Clear Calc Estimated GFR Random Glucose Lactic Acid 0.5 Calcium Total Bilirubin AST ALT Alkaline Phosphatase Troponin I High Sens B-Natriuretic Peptide Total Protein Albumin Urine Color Urine Appearance Urine pH Ur Specific [place] Urine Protein Urine Glucose (UA) Urine Ketones Urine Blood Urine Nitrite Ur Leukocyte Esterase Urine RBC Urine WBC Ur Squamous Epith Cells Urine Bacteria COVID-19 ([facility]) Negative COVID-19 Clin Com See Note 09/09/21 09/09/21 22:41 22:48 MCV MCH MCHC RDW Plt Count MPV Immature Gran % (Auto) Neut % (Auto) Lymph % (Auto) [place] % (Auto) Eos % (Auto) Baso % (Auto) Lymph # (Auto) [place] # (Auto) Eos # (Auto) Baso # (Auto) Abs Immat Gran (auto) Absolute Neuts (auto) Absolute Nucleated RBC Nucleated RBC % (auto) PT INR VBG pH 7.23 L VBG pCO2 87 VBG pO2 82 VBG HCO3 37 H VBG O2 Saturation 93.0 VBG Base Excess 6.4 Anion Gap Estim Creat Clear Calc Estimated GFR Random Glucose Lactic Acid Calcium Total Bilirubin AST ALT Alkaline Phosphatase Troponin I High Sens B-Natriuretic Peptide Total Protein Albumin Urine Color YELLOW Urine Appearance CLEAR Urine pH 6.5 Ur Specific [place] 1.010 Urine Protein NEG Urine Glucose (UA) NEG Urine Ketones NEG Urine Blood NEG Urine Nitrite NEG Ur Leukocyte Esterase 2+ H Urine RBC 1-4 Urine WBC 15-29 H Ur Squamous Epith Cells 1+ Urine Bacteria 2+ COVID-19 ([facility]) COVID-19 Clin Com <ALEXANDER Garcia - Last Filed: 09/11/21 04:58> Imaging Radiologist's Impressions: Impressions Chest X-Ray 09/09/21 21:55 IMPRESSION: Scattered bilateral opacities, most prominent on the right. Findings may represent an infectious or inflammatory process, however, asymmetrical pulmonary edema would also be within the differential. Clinical correlation is recommended. <ALEXANDER Garcia - Last Filed: 09/11/21 04:58> Critical Care Time Critical Care Time (minutes): 90 <Jacob Ferrell MD - Last Filed: 10/02/21 22:08>
[2021-09-10 01:05] LABS: ABG Refer to POC result
[2021-09-10 01:07] LABS: ABG Base Excess 7.8 mmol/L; ABG HCO3 34 mmol/L (22-26); ABG pCO2 53 mmHg (32-45); ABG pCO2 TC 53 mmHg (32-45); ABG pH 7.41 (7.35-7.45); ABG pO2 91 mmHg (83-108); ABG pO2 TC 91 (83-108)
[2021-09-10] MEDS: Piperacillin Sodium/Tazobactam 3.375 GM in 0.9 % Sodium Chloride 50 ML IV ×4 (01:14→17:20)
[2021-09-10] MEDS: iohexoL 350 MG/ML 100 ML INFUS..BTL 85 ML IV (01:49)
--- NOTE | 2021-09-10 02:06 | PC.NURSE ---
pt was intubated at bedside 7.5 25cm at the lip line. propofal stareted for vent sedation at 2341 at 5mcg/kg/min 2.86ml/hr. pt was taken to ct x2 with no complications, pt after the last ct was taken to icu 253. pt settled in at the bedside and all questions answered.
[2021-09-10] MEDS: propofoL 1,000 MG/100 ML VIAL 17.15 MG IVCONT ×4 (02:16→17:58)
[2021-09-10] MEDS: vancomycin HCL 1,500 MG in 0.9 % Sodium Chloride 500 ML 333.33 MG IV (02:17)
[2021-09-10] MEDS: dilTIAZem HCL 50 MG/10 ML VIAL IVPUSH (03:10)
[2021-09-10] MEDS: methylPREDNISolone Sod Succ 40 MG/ML VIAL IVPUSH ×3 (03:18→17:20)
[2021-09-10] MEDS: Enoxaparin Sodium 40 MG/0.4 ML SYRINGE SUBCUT (03:19)
[2021-09-10] MEDS: propofoL 1,000 MG/100 ML VIAL 22.86 MG IVCONT (03:56)
--- NOTE | 2021-09-10 03:57 | W.PM.CCHP ---
Procedures Date of Service Date of Service: 09/10/21 Central Line Placement A quick time-out was made for clarification and proper patient identification, patient was positioned, landmarks were identified, US used to locate a large compressible IJ. The left neck was widely prepped and draped in a full sterile fashion. Ultrasound was used to locate again the left IJ, the vein was cannulated on the 1st pass with an 18 gauge thin needle, dark nonpulsatile blood return was obtained. The wire was threaded, a small incision was made at its base and dilator inserted. A triple-lumen central venous catheter was advanced into the vein up to the hub without problems, wired was removed. Ports had good blood return and flushed x3. The catheter was secured with 3 sutures at 3 sites, a Biopatch and dry sterile dressing were applied. Post procedure chest x-ray showed the line to be in good position without pneumothorax. No bleeding or complications noted.: Consent for Procedure: Emergent-no informed consent obtained Time out performed: Yes Sterile Technique Used: Yes Patient placed on monitor/pulse ox: Yes prep: mask, gown and gloves Central line prep: Chlorhexidine scrub and sterile drapes applied Local anesthesia used: lidocaine 2% Amount of anesthesia used (ml): 5 Central line lumen inserted: triple Post procedure: sutured in place Post procedure x-ray: tip of catheter in good position Patient tolerated procedure: well and no complications Complications: none
[2021-09-10 04:10] LABS: Basophils Absolute Auto 0.1 X10*3/uL (0.0-0.2); Basophils Percent Auto 0.4 % (0-2); Eosinophils Percent Auto 0.3 % (0-4); Hematocrit 33.8 % (37.0-47.0); Hemoglobin 10.3 g/dl (12.0-16.0); Imm Gran Abs Auto 0.05 X10*3/uL (0.00-0.03); Imm Gran Pct Auto 0.4 % (0.0-0.4); Lymphocytes Absolute Auto 0.9 X10*3/uL (1.2-4.9); Lymphocytes Percent Auto 6.9 % (20-40); MANUAL DIFF FLAG NO; Mean Corpuscular HGB Conc 30.5 g/dl (31.0-35.0); Mean Corpuscular Hemoglobin 29.6 pg (27.0-33.0); Mean Corpuscular Volume 97.1 fL (80.0-98.0); Mean Platelet Volume 9.5 fL (9.4-12.3); Monocytes Absolute Auto 1.6 X10*3/uL (0.1-1.2); Monocytes Percent Auto 12.4 % (2-11); Neutrophils Absolute Auto 10.2 x10*3/uL (2.0-8.3); Neutrophils Percent Auto 79.6 % (45-73); Platelet Count 224 X10*3/uL (160-400); Red Blood Count 3.48 X10*6/uL (4.20-5.50); Red Cell Distribution Width 12.7 % (11.0-16.0); SCAN SMEAR FLAG 1; White Blood Count 12.8 X10*3/uL (4.8-10.8)
[2021-09-10] MEDS: dilTIAZem HCL 50 MG/10 ML VIAL 10 MG IVPUSH (04:10)
[2021-09-10 04:19] LABS: Lactic Acid 0.9 mmol/L (0.5-2.0)
[2021-09-10 04:22] LABS: Anion Gap 16 (12-20); Blood Urea Nitrogen 13 mg/dL (9-16); Calcium 8.3 mg/dL (8.4-10.2); Carbon Dioxide 29 mmol/L (22-29); Chloride 103 mmol/L (96-108); Creatinine Clr Calc Pharmacy 85.9; Estimated Glomerular Filt Rate > 60; Glucose Fasting 122 mg/dL (60-99); Potassium 3.1 mmol/L (3.3-5.1); Sodium 145 mmol/L (135-145)
[2021-09-10 05:32] LABS: VBG Base Excess 10.5 mmol/L; VBG HCO3 35 mmol/L (22-26); VBG pCO2 48 mmHg; VBG pH 7.47 (7.32-7.43); VBG pO2 42 mmHg
[2021-09-10] MEDS: Pantoprazole Sodium 40 MG/10 ML VIAL IVPUSH (05:41)
[2021-09-10] MEDS: Potassium Chloride/H20 40 MEQ/100 ML PIGGYBACK 100 MEQ IV (05:48)
--- NOTE | 2021-09-10 05:57 | PC.NURSE ---
Pt arrived to icu at 0200. Pt intubated and sedated with propofol with good effect. BP stable on arrival but after propofol titrated, BP dropped with maps in 50s. ALEXANDER Lincoln placed central line in L IJ and levophed started, BP stabilized. Pt has cream-colored thick in line secretions, sputum culture sent. Afib on tele rate 110-120s, pt received one time 5 mg IVP cardizem with little effect, another one time 10 mg IVP cardizem administered with good effect. UO around 100 mls/hr. Positive cough and gag, maintained on AC settings on vent, FiO2 weaned to 30%. LS expiratory rhonchi throughout.
[2021-09-10 06:01] LABS: Alanine Aminotransferase 17 U/L (0-31); Albumin Level 3.9 g/dL (3.5-5.0); Alkaline Phosphatase 112 U/L (39-117); Aspartate Amino Transferase 21 U/L (5-31); Bilirubin Direct 0.6 mg/dL (0.0-0.5); Bilirubin Total 1.3 mg/dL (0.0-1.0); C Reactive Protein 0.99 mg/dL (< or = 0.50); Total Protein 6.5 g/dL (6.5-8.0)
[2021-09-10 06:08] LABS: Venous Blood Gas Refer to POC result
[2021-09-10] MEDS: dilTIAZem HCL 30 MG TABLET PO ×5 (07:02→21:36)
--- NOTE | 2021-09-10 08:00 | PHA.PROG ---
Admission Date/Time: September 10, 2021 00:13 Indication: Resp Infection Weight in k.4 kg Adjusted body weight in K.92 kg Show Low body weight in K.6 kg Obesity Dosing Indication % IBW: 158% Serum Creatinine - Last 168 Hours 09/09/21 09/10/21 22:40 04:00 Creatinine 0.78 0.73 Estimated CrCl and GFR - Last 168 Hours 09/09/21 09/10/21 22:40 04:00 Estim Creat Clear Calc 79.5 85.9 Estimated GFR > 60 > 60 Vancomycin Loading Dose: 1500 mg Current Vancomycin Dosing Regimen: 1000 mg Q12H Date and Time for next Vancomycin Level to be drawn: 09/11 @ 0100 Pharmacist Comments on Vancomycin Plan: Patient is > 65 with good kidney function. Per insight Rx patient should be on Q12H dosing. Pharmacy will monitor closely. We will draw trough before 3rd to dose to make earlier adjustments if necessary. Vancomycin 1000 mg Q12H has an expected AUC of 472 with a trough of 15.3 Lyn Zafar PharmD Vancomycin dosing will take advantage of [employer] as a clinical decision support tool that uses Bayesian modeling to calculate individual patient's pharmacokinetic parameters and forecast the patient's drug concentration time course with the target goal AUC 24 range of 400 - 600 mg/L/hr.
[2021-09-10] MEDS: Albuterol/Iprat 2.5/0.5MG 3 ML AMPUL.NEB INHALE ×3 (08:06→20:25)
[2021-09-10] MEDS: acetaZOLAMIDE sodium 500 MG VIAL IVPUSH ×3 (11:05→21:36)
--- NOTE | 2021-09-10 11:08 | MHC.CM.PN ---
Pt intubated in ICU and unable to participate in CM assessment: Call placed to her son Nicholas with whom she resides: Nicholas states pt recently d/c/d to home from [facility]08[facility]28[facility]. Pt has a PT - 1 form and her other son assists with transportation (at this time he is quarantining with [employer]) Her dtr, Suazn is the only HCP listed and lives over an hour away. D/C plan will need to be finalized based on return of pt's functional assessment. Re-referred [facility] to [facility] and [facility] at this time.
[2021-09-10] MEDS: vancomycin HCL 1,000 MG in 0.9 % Sodium Chloride 250 ML 270 MG IV (13:04)
[2021-09-10] MEDS: Bumetanide 1 MG/4 ML VIAL IVPUSH (13:04)
[2021-09-10] MEDS: Esmolol HCl/NaCl Iso 2,500 MG/250 ML IV.SOLN 14.61 MG IVCONT (18:00)
[2021-09-10] MEDS: Lactulose 20 GM/30 ML SOLUTION 30 GM G-TUBE ×2 (18:03→21:37)
[2021-09-10] MEDS: Potassium Chloride Packet 20 MEQ PACKET 40 MEQ G-TUBE (18:28)
[2021-09-10] MEDS: Furosemide 20 MG/2 ML VIAL IVPUSH (18:31)
--- NOTE | 2021-09-10 18:31 | PM.CCPN ---
Subjective Subjective Date of Service: 09/10/21 Critical Care Time (minutes): 80 Comment: Mrs. Maradiaga was admitted to the ICU early this morning (Sep 10) with acute respiratory failure after being intubated in the ED. The patient is well known to me from previous admissions to the ICU this past May and earlier this month. ?She is a 71-year-old female with PMHx of obesity, irreparable large ventral hernia(s) s/p previous repair attempt, ongoing smoker, DHEERAJ, chronic oxygen-dependent COPD with CO2 retention, moderate aortic stenosis, diastolic congestive heart failure, atrial arrhythmia, bifascicular block, thoracic aortic aneurysm, hyperlipidemia, anxiety, B12 deficiency, irritable bowel syndrome, GERD, and hypothyroidism. ?She?s on 2L NC at home and she?s had consistently elevated serum bicarbonate level since Aug, 2020. ?She currently takes Diamox at home. Last ECHOCARDIOGRAM done on Aug 22 showed moderately LVH w normal systolic function and grade 2 diastolic dysfunction; RV cavity size and systolic function were normal; the atria were moderate to severely dilated; there was moderate to severe with gradients 43/27 mm and calculated valve area of 0.89 cm2; there was [id number] MR; there was mild TR, with RVSP estimate 56 mm; and the IVC was dilated with > 50% inspiratory collapse. ?This was all pretty much unchanged from April. My bedside ECHO on Aug 23 was notable for: - RV cavity size looks enlarged to me, with RV:LV cavity ratio 1:1 - 2+ TR by color alie, with CWD measuring 3.0 m/sec, gradient 36mm. - IVC measured 1.6 cm with 25% insp collapse. ?CVP estimate 8 cm. ?RVSP estimate 44 mm. [employer] records indicate that her BNPs were running 150-300 from 2018 until this past May. ?Since then, her BNP has been climbing up to the 1000 range. ?She was taking Lasix 60mg daily. The patient lives with her son Desmond who is her healthcare proxy (cell [phone]; home [phone]). The patient was admitted to [facility] 08/21-08/28- for a fall, thought 2? to subacute parietal infarct. ?Dr. Sharma recommended anticoagulation, altho echo showed no LV thrombus.? Course was complicated by acute delirium which then led to hypoxemic and hypercarbic respiratory failure and two-day tracheal intubation.? She was treated with Diamox, ceftriaxone, and Zithromax.? Ultimately she was discharged home on August 28 and was reportedly taking Eliquis. HISTORY OF PRESENT ILLNESS: ?The patient was BIBA to the ED last night because of altered mental status.? The patient denied any fevers chills or chest pain.? EMS reports that at the scene, the Sat was 88% on 2LNC. In the ED, the respiratory rate was 18 with a sat of 98% on 4 L oxygen by nasal cannula.? Heart rate was 98, blood pressure 152/74.? She was afebrile.? Patient had no JVD but she had 3+ bilateral edema.? She had mild rales noted with increased work of breathing. Labs in the ED were notable for white count of 9.6, BUN/creatinine 12/0.7, BNP 1378 (up from 762 on August 25).? Lactic acid was normal.? VBG showed 7.23/87/+6.? (Last VBG on August 25 showed 7.36/44/0.) Head CT showed expected evolution of her right parietal lobe infarct.? Chest x-ray was read as showing scattered bilateral opacities.? My reading, comparing the film to her previous films suggests pulmonary edema.? Chest CT showed multifocal right lung consolidation, especially in the lower lobe, suggestive of pneumonia.? Note that her last chest CT on August 23 also showed right lower lobe consolidation, although not as bad. ?She also had mild diffuse bilateral ground-glass opacity suggestive of edema.? The patient also had a moderate to large volume of stool. She was placed on BiPAP, and then with declining mental status, subsequently intubated.? She then underwent a CT angiogram which showed no pulmonary emboli.? The CTPA also showed that the main pulmonary artery is dilated; she has marked LVH, with smallish LV cavity, such that RV:LV cavity ratio is 1.0; both atria are huge, with the LA being twice the size of the LV cavity. Patient was admitted to the ICU and treated with antibiotics.? She also had AFib with RVR and was put on Levophed, diltiazem, and Bumex, and a central line was placed. This afternoon, she?s well sedated on propofol at 30 ug.? She?s on Levophed at 0.03ug.? HR is 120?s, SR w freq PACs.? BP 118/56.? RR is 16 on the vent, set at AC 10/400/30%/+5, with Ve 6L, PIP 23cm, Sat 93%.? CVBG this morning showed 7.47/48/+10.? She?s afebrile.? No JVD at 30 degrees.? Chest is clear to auscultation, with a normal expiratory phase.? Heart rate and rhythm are regular, with normal-sounding S1 and S2, and a 2-3/6 mid-peaking systolic ejection murmur.? Abdomen shows her large midline ventral hernia, with about a golf-ball sized hard, mobile mass caudal to it (a seroma, according to Dr. Foster; unchanged from May). ?She has at least 2+ pretibial edema. LABORATORY DATA: ?As below. ?Notably, white count is up to 12, sodium up to 145, renal indices steady despite the diuresis, potassium 3.1, T bili up to 1.3. MICROBIOLOGY:? Sputum in specimen from this morning shows 1+ polys, no organisms.? Urinalysis from last night showed 15-29 wbc's, 2+ leukocyte esterase, and 2+ urine bacteria.? No positive culture results yet. IMPRESSION: 1. End-stage COPD with chronic CO2 retention. ?Up her Diamox to 500 mg IV tid. 2. S/P right parietal stroke. ?In Dr. Sharma?s opinion the location of the stroke is most suggestive of an embolic phenomenon. ?That is why he recommended anticoagulation. ?Unfortunately, anticoagulation has significant risk in this patient, given her history of falls and her history of altered mental status and obtundation secondary to CO2 retention. ?For now, we?ll go with just aspirin and DVT prophylaxis-dose anticoagulation, then further follow-up with Dr. Sharma on Sunday. 3. Acute on chronic hypercapnic respiratory failure.? Probably secondary to either pneumonia or congestive heart failure. 4. Possible right lower lobe pneumonia. ?Her oxygenation is currently probably at her baseline, suggesting that the right lower lobe infiltrate on CT scan is of minimal clinical significance. ?Furthermore, the CT angiogram may give a better view of the infiltrate than the plain CT, and shows the infiltrate and the air bronchograms to be much less impressive.? Furthermore, the patient had a similar infiltrate on her prior CT.? So it?s not clear that anything going on there is new.? We?ll have her seen by pulmonary.? Maybe bronchoscopy is warranted.? For now continue Zosyn and vancomycin. 5. ?Possible congestive heart failure.? Her LVH is impressive, she undoubtedly has some diastolic heart failure.? We will increase her diuretic and put her on a Lasix drip for now. 7. ?Undoubtedly also has RHF.? That?s going to make it difficult to diurese her because she?ll become hypotensive. 9. History of DHEERAJ. ?Her head and neck habitus are highly suggestive. ?She should wear CPAP or BiPAP at night. 10. Moderate-severe aortic stenosis by echo and by physical exam. ?Question is, how much is that contributing to her CHF, and at what point would consideration of a TAVR be warranted. ?Dr. Page saw her in May, and felt that no intervention for her valve was indicated at that time. 11. H/o thoracic aortic aneurysm. ?Should be addressed as an outpatient. 12. Metabolic alkalosis. ?Secondary to end-stage COPD, along with diuresis. ?We?ve upped her dose of Diamox. 13. Large ventral hernia. ?The patient was seen in consultation in May by Dr. Foster. ?She wrote that the patient ?has a known recurrent incisional hernia and a known seroma of her lower abdominal wall?. ?The patient is not a surgical candidate at this time. Critical care time (including extended chart rev): ?80 minutes. Physical Exam Vital Signs: Vital Signs: Last Vital Signs Temp 99.5 F 09/10/21 16:00 Pulse 92 09/10/21 18:00 Resp 18 09/10/21 18:00 BP 118/56 L 09/10/21 18:00 Pulse Ox 93 09/10/21 18:00 Oxygen Flow Rate 4 09/09/21 22:09 Body Mass Index 33.6 Objective Data Labs CBC & Chem 7: 09/10/21 04:00 09/10/21 04:00 Labs: Laboratory Results - last 24 hr 11/26/21 11/26/21 11/26/21 22:40 22:40 22:40 WBC RBC Hgb Hct MCV MCH MCHC RDW Plt Count MPV Immature Gran % (Auto) Neut % (Auto) Lymph % (Auto) Dick[place] % (Auto) Eos % (Auto) Baso % (Auto) Lymph # (Auto) Dickens # (Auto) Eos # (Auto) Baso # (Auto) Abs Immat Gran (auto) Absolute Neuts (auto) Absolute Nucleated RBC Nucleated RBC % (auto) PT 12.0 INR 1.1 O2 Saturation ABG pH at Pt Temp ABG pH (Temp Correct) ABG pCO2 at Pt Temp ABG pCO2 (Temp Corrct ABG pO2 at Pt Temp ABG pO2 (Temp Correct ABG HCO3 ABG Base Excess (Actual) VBG pH VBG pCO2 VBG pO2 VBG HCO3 VBG O2 Saturation VBG Base Excess Sodium 144 Potassium 3.8 Chloride 104 Carbon Dioxide 33 H Anion Gap 11 L BUN 12 Creatinine 0.78 Estim Creat Clear Calc 79.5 Estimated GFR > 60 Random Glucose 129 H Fasting Glucose Lactic Acid Calcium 8.7 Total Bilirubin 0.8 Direct Bilirubin AST 19 D ALT 16 Alkaline Phosphatase 114 Troponin I High Sens 35.9 H* D C-Reactive Protein B-Natriuretic Peptide 1378 H Total Protein 7.0 D Albumin 4.2 D Urine Color Urine Appearance Urine pH Ur Specific [place] Urine Protein Urine Glucose (UA) Urine Ketones Urine Blood Urine Nitrite Ur Leukocyte Esterase Urine RBC Urine WBC Ur Squamous Epith Cells Urine Bacteria COVID-19 ([facility]) COVID-19 Clin Com 09/09/21 09/09/21 09/09/21 22:41 22:41 22:41 WBC 9.6 RBC 3.62 L Hgb 10.8 L Hct 36.1 L MCV 99.7 H MCH 29.8 MCHC 29.9 L RDW 12.8 Plt Count 215 MPV 9.1 L Immature Gran % (Auto) 0.6 H Neut % (Auto) 69.4 Lymph % (Auto) 15.6 L Dickens % (Auto) 12.0 H Eos % (Auto) 1.6 Baso % (Auto) 0.8 Lymph # (Auto) 1.5 Dickens # (Auto) 1.2 Eos # (Auto) 0.2 Baso # (Auto) 0.1 Abs Immat Gran (auto) 0.06 H Absolute Neuts (auto) 6.7 Absolute Nucleated RBC 0.000 Nucleated RBC % (auto) 0.0 PT INR O2 Saturation ABG pH at Pt Temp ABG pH (Temp Correct) ABG pCO2 at Pt Temp ABG pCO2 (Temp Corrct ABG pO2 at Pt Temp ABG pO2 (Temp Correct ABG HCO3 ABG Base Excess (Actual) VBG pH VBG pCO2 VBG pO2 VBG HCO3 VBG O2 Saturation VBG Base Excess Sodium Potassium Chloride Carbon Dioxide Anion Gap BUN Creatinine Estim Creat Clear Calc Estimated GFR Random Glucose Fasting Glucose Lactic Acid 0.5 Calcium Total Bilirubin Direct Bilirubin AST ALT Alkaline Phosphatase Troponin I High Sens C-Reactive Protein B-Natriuretic Peptide Total Protein Albumin Urine Color Urine Appearance Urine pH Ur Specific [place] Urine Protein Urine Glucose (UA) Urine Ketones Urine Blood Urine Nitrite Ur Leukocyte Esterase Urine RBC Urine WBC Ur Squamous Epith Cells Urine Bacteria COVID-19 ([facility]) Negative COVID-19 Clin Com See Note 09/09/21 09/09/21 09/10/21 22:41 22:48 00:58 WBC RBC Hgb Hct MCV MCH MCHC RDW Plt Count MPV Immature Gran % (Auto) Neut % (Auto) Lymph % (Auto) Dick[place] % (Auto) Eos % (Auto) Baso % (Auto) Lymph # (Auto) [place] # (Auto) Eos # (Auto) Baso # (Auto) Abs Immat Gran (auto) Absolute Neuts (auto) Absolute Nucleated RBC Nucleated RBC % (auto) PT INR O2 Saturation 98.0 ABG pH at Pt Temp 7.41 ABG pH (Temp Correct) 7.40 ABG pCO2 at Pt Temp 53 H ABG pCO2 (Temp Corrct 53 H ABG pO2 at Pt Temp 91 ABG pO2 (Temp Correct 91 ABG HCO3 34 H ABG Base Excess (Actual) 7.8 VBG pH 7.23 L VBG pCO2 87 VBG pO2 82 VBG HCO3 37 H VBG O2 Saturation 93.0 VBG Base Excess 6.4 Sodium Potassium Chloride Carbon Dioxide Anion Gap BUN Creatinine Estim Creat Clear Calc Estimated GFR Random Glucose Fasting Glucose Lactic Acid Calcium Total Bilirubin Direct Bilirubin AST ALT Alkaline Phosphatase Troponin I High Sens C-Reactive Protein B-Natriuretic Peptide Total Protein Albumin Urine Color YELLOW Urine Appearance CLEAR Urine pH 6.5 Ur Specific [place] 1.010 Urine Protein NEG Urine Glucose (UA) NEG Urine Ketones NEG Urine Blood NEG Urine Nitrite NEG Ur Leukocyte Esterase 2+ H Urine RBC 1-4 Urine WBC 15-29 H Ur Squamous Epith Cells 1+ Urine Bacteria 2+ COVID-19 ([facility]) COVID-19 Clin Com 09/10/21 09/10/21 09/10/21 04:00 04:00 04:00 WBC 12.8 H RBC 3.48 L Hgb 10.3 L Hct 33.8 L MCV 97.1 MCH 29.6 MCHC 30.5 L RDW 12.7 Plt Count 224 MPV 9.5 Immature Gran % (Auto) 0.4 Neut % (Auto) 79.6 H Lymph % (Auto) 6.9 L Dickens % (Auto) 12.4 H Eos % (Auto) 0.3 Baso % (Auto) 0.4 Lymph # (Auto) 0.9 L Dick[place] # (Auto) 1.6 H Eos # (Auto) 0.0 Baso # (Auto) 0.1 Abs Immat Gran (auto) 0.05 H Absolute Neuts (auto) 10.2 H Absolute Nucleated RBC 0.000 Nucleated RBC % (auto) 0.0 PT INR O2 Saturation ABG pH at Pt Temp ABG pH (Temp Correct) ABG pCO2 at Pt Temp ABG pCO2 (Temp Corrct ABG pO2 at Pt Temp ABG pO2 (Temp Correct ABG HCO3 ABG Base Excess (Actual) VBG pH VBG pCO2 VBG pO2 VBG HCO3 VBG O2 Saturation VBG Base Excess Sodium 145 Potassium 3.1 L Chloride 103 Carbon Dioxide 29 Anion Gap 16 BUN 13 Creatinine 0.73 Estim Creat Clear Calc 85.9 Estimated GFR > 60 Random Glucose Fasting Glucose 122 H Lactic Acid 0.9 Calcium 8.3 L Total Bilirubin 1.3 H Direct Bilirubin 0.6 H AST 21 ALT 17 Alkaline Phosphatase 112 Troponin I High Sens C-Reactive Protein 0.99 H B-Natriuretic Peptide Total Protein 6.5 Albumin 3.9 Urine Color Urine Appearance Urine pH Ur Specific [place] Urine Protein Urine Glucose (UA) Urine Ketones Urine Blood Urine Nitrite Ur Leukocyte Esterase Urine RBC Urine WBC Ur Squamous Epith Cells Urine Bacteria COVID-19 ([facility]) COVID-19 Clin Com 09/10/21 05:27 WBC RBC Hgb Hct MCV MCH MCHC RDW Plt Count MPV Immature Gran % (Auto) Neut % (Auto) Lymph % (Auto) [place] % (Auto) Eos % (Auto) Baso % (Auto) Lymph # (Auto) Dick[place] # (Auto) Eos # (Auto) Baso # (Auto) Abs Immat Gran (auto) Absolute Neuts (auto) Absolute Nucleated RBC Nucleated RBC % (auto) PT INR O2 Saturation ABG pH at Pt Temp ABG pH (Temp Correct) ABG pCO2 at Pt Temp ABG pCO2 (Temp Corrct ABG pO2 at Pt Temp ABG pO2 (Temp Correct ABG HCO3 ABG Base Excess (Actual) VBG pH 7.47 H VBG pCO2 48 VBG pO2 42 VBG HCO3 35 H VBG O2 Saturation 73.0 VBG Base Excess 10.5 Sodium Potassium Chloride Carbon Dioxide Anion Gap BUN Creatinine Estim Creat Clear Calc Estimated GFR Random Glucose Fasting Glucose Lactic Acid Calcium Total Bilirubin Direct Bilirubin AST ALT Alkaline Phosphatase Troponin I High Sens C-Reactive Protein B-Natriuretic Peptide Total Protein Albumin Urine Color Urine Appearance Urine pH Ur Specific [place] Urine Protein Urine Glucose (UA) Urine Ketones Urine Blood Urine Nitrite Ur Leukocyte Esterase Urine RBC Urine WBC Ur Squamous Epith Cells Urine Bacteria COVID-19 ([facility]) COVID-19 Clin Com Microbiology Microbiology Results: Microbiology 09/10/21 05:00 Sputum - Suctioned Gram Stain - Final Quality Stroke Does the patient have a stroke diagnosis?: No VTE Prior VTE?: No VTE Risk Level:: Medical - moderate - high VTE Device Contraindication: N/A - Device Ordered VTE Drug Contraindication: N/A - Med Ordered Critical Care Time Critical Care Time (minutes): 90
[2021-09-10] MEDS: Furosemide 200 MG in 0.9 % Sodium Chloride 80 ML IVCONT (19:37)
[2021-09-10 22:39] LABS: Anion Gap 11 (12-20); Blood Urea Nitrogen 17 mg/dL (9-16); Calcium 8.6 mg/dL (8.4-10.2); Carbon Dioxide 31 mmol/L (22-29); Chloride 108 mmol/L (96-108); Estimated Glomerular Filt Rate 58; Glucose Random 171 mg/dL (60-115); Magnesium 2.3 mg/dL (1.6-2.6); Phosphorus 3.4 mg/dL (2.7-4.5); Potassium 3.5 mmol/L (3.3-5.1); Sodium 146 mmol/L (135-145)
[2021-09-11] VITALS (49 sets, daily range): BP systolic 93–132; BP diastolic 46–86; PULSE 74–137; RESP 17–36; TEMP 31–37.5; O2SAT 93–97; BMI 37.2
[2021-09-11] MEDS: propofoL 1,000 MG/100 ML VIAL 17.15 MG IVCONT ×2 (00:04→04:13)
[2021-09-11] MEDS: Piperacillin Sodium/Tazobactam 3.375 GM in 0.9 % Sodium Chloride 50 ML IV ×5 (00:05→23:34)
[2021-09-11 01:24] LABS: Vancomycin Trough 14.1 mcg/mL (10.0-20.0)
[2021-09-11] MEDS: methylPREDNISolone Sod Succ 40 MG/ML VIAL IVPUSH ×3 (02:27→17:03)
[2021-09-11] MEDS: Lactulose 20 GM/30 ML SOLUTION 30 GM G-TUBE ×6 (02:27→20:19)
[2021-09-11] MEDS: vancomycin HCL 1,000 MG in 0.9 % Sodium Chloride 250 ML 270 MG IV (02:27)
[2021-09-11] MEDS: Enoxaparin Sodium 40 MG/0.4 ML SYRINGE SUBCUT (02:27)
[2021-09-11] MEDS: Esmolol HCl/NaCl Iso 2,500 MG/250 ML IV.SOLN 29.22 MG IVCONT (04:12)
[2021-09-11 05:24] LABS: VBG Base Excess 5.9 mmol/L; VBG HCO3 31 mmol/L (22-26); VBG pCO2 49 mmHg; VBG pH 7.41 (7.32-7.43); VBG pO2 47 mmHg
[2021-09-11] MEDS: Pantoprazole Sodium 40 MG/10 ML VIAL IVPUSH (05:25)
--- NOTE | 2021-09-11 05:40 | PC.NURSE ---
Assumed care from RALPH Mora at 19:00. Patient sedated RASS -4 on propofol, arousable to tactile stimuli only. well sedated on propofol. Some grimacing to noxious stimuli, nonverbal pain score 1. Positive cough and gag, PERRL, pupils 4 mm and brisk. Patient with lung sounds clear and dim in anterior lung [place] and with scattered inspiratory/expiratory wheezing and inspiratory rhonchi at times posteriorly. Continues on ventilator, ETT 7.5, 23 cm CHIKIS, AC settings 10; 400; 5; 30%; SpO2 94-96%; overbreathes ventilator, RR 17-22, WOB not visibly increased; inline with clear and thin secretions; oral with same. VBG this AM is WNL except HCO3 that is high at 31 but also trended down from yesterday. Patient with distant heart sounds with a known murmur. BP has been soft when levophed was titirated down, continues on levophed 0.03. On monitor, sinus arrhythmia with >10% PACs, as well as BBB and frequent runs of PAT at rates 110's-130's, not sustained, and MD/PA aware. BMP with Mg was checked overnight and unremarkable. Continues on lasix gtt, and PA ordered rate reduced from 5 mg/hour to 3 mg/hour, and paitient continues on IVP diamox, urine output this shift 650 ccs pale yellow, averaging about 50 cc/hour. Patient continued on lactulose Q4 hours via OGT, no BM this shift. Abdomen is distented and semi-firm, with known masses that are firm. Skin is intact except for small known wound on anterior abdomen near umbilicus, with dressing CDI. scattered briuising to right abdomen, small scratch intact to right shoulder.
[2021-09-11 05:46] LABS: Basophils Percent Auto 0.1 % (0-2); Hematocrit 32.6 % (37.0-47.0); Hemoglobin 9.7 g/dl (12.0-16.0); Imm Gran Abs Auto 0.05 X10*3/uL (0.00-0.03); Imm Gran Pct Auto 0.5 % (0.0-0.4); Lymphocytes Absolute Auto 0.3 X10*3/uL (1.2-4.9); Lymphocytes Percent Auto 3.1 % (20-40); Mean Corpuscular HGB Conc 29.8 g/dl (31.0-35.0); Mean Corpuscular Hemoglobin 29.1 pg (27.0-33.0); Mean Corpuscular Volume 97.9 fL (80.0-98.0); Mean Platelet Volume 9.9 fL (9.4-12.3); Monocytes Absolute Auto 0.3 X10*3/uL (0.1-1.2); Monocytes Percent Auto 3.3 % (2-11); Neutrophils Absolute Auto 8.9 x10*3/uL (2.0-8.3); Platelet Count 261 X10*3/uL (160-400); Red Blood Count 3.33 X10*6/uL (4.20-5.50); SCAN SMEAR FLAG 1; White Blood Count 9.5 X10*3/uL (4.8-10.8)
[2021-09-11 05:49] LABS: MANUAL DIFF FLAG SCAN
[2021-09-11 06:05] LABS: SLIDE REVIEW VERIFIED
[2021-09-11 06:14] LABS: Alanine Aminotransferase 13 U/L (0-31); Albumin Level 3.6 g/dL (3.5-5.0); Alkaline Phosphatase 91 U/L (39-117); Anion Gap 15 (12-20); Aspartate Amino Transferase 14 U/L (5-31); Bilirubin Total 0.7 mg/dL (0.0-1.0); Blood Urea Nitrogen 21 mg/dL (9-16); Calcium 8.4 mg/dL (8.4-10.2); Carbon Dioxide 29 mmol/L (22-29); Chloride 108 mmol/L (96-108); Creatinine Clr Calc Pharmacy 61.5; Estimated Glomerular Filt Rate 54; Glucose Random 160 mg/dL (60-115); Phosphorus 4.2 mg/dL (2.7-4.5); Potassium 3.5 mmol/L (3.3-5.1); Sodium 148 mmol/L (135-145); Total Protein 6.1 g/dL (6.5-8.0)
[2021-09-11 06:20] LABS: Venous Blood Gas Refer to POC result
--- NOTE | 2021-09-11 06:38 | HE.PHANOTE ---
SCr increased from 0.73 to 1.02. Patient is currently therapeutic. AUC is expected to be supratherapuetic with vancomycin 1000 mg Q12H. Will switch patient Vancomycin 1500 mg Q24H. The new expected AUC 523 with a trough of 15.3. We will draw the next trough on 09/14 @ 0200. Brad WeberD
[2021-09-11] MEDS: Albuterol/Iprat 2.5/0.5MG 3 ML AMPUL.NEB INHALE ×3 (07:50→20:29)
[2021-09-11] MEDS: Dextrose 5 % 1,000 ML 75 ML IVCONT ×2 (08:27→21:27)
[2021-09-11] MEDS: Chlorhexidine Gluc Oral Rinse 15 ML MOUTHWASH BUCCAL ×3 (08:27→20:20)
[2021-09-11] MEDS: dilTIAZem HCL 30 MG TABLET PO ×4 (08:27→20:20)
[2021-09-11] MEDS: acetaZOLAMIDE sodium 500 MG VIAL IVPUSH ×3 (08:28→20:20)
--- NOTE | 2021-09-11 09:32 | P.PNCC_ITS ---
Subjective Subjective Date of Service: 09/11/21 Interval History: . Mrs. Maradiaga was admitted to the ICU early this morning (Sep 10) with acute respiratory failure after being intubated in the ED. The patient is well known to me from previous admissions to the ICU this past May and earlier this month.? She is a 71-year-old female with PMHx of obesity , irreparable large ventral hernia(s) s/p previous repair attempt, ongoing smoker, DHEERAJ, chronic oxygen-dependent COPD with CO2 retention, moderate aortic stenosis, diastolic congestive heart failure, atrial arrhythmia, bifascicular block, thoracic aortic aneurysm, hyperlipidemia, anxiety, B12 deficiency, irritable bowel syndrome, GERD, and hypothyroidism.? She?s on 2L NC at home and she?s had consistently elevated serum bicarbonate level since Aug, 2020.? She currently takes Diamox at home. Last echocardiogram done on Aug 22 showed moderately LVH w normal systolic function and grade 2 diastolic dysfunction; RV cavity size and systolic function were normal; the atria were moderate to severely dilated; there was moderate to severe with gradients 43/27 mm and calculated valve area of 0.89 cm2; there was jzus-xj-wckmejuw MR; there was mild TR, with RVSP estimate 56 mm; and the IVC was dilated with > 50% inspiratory collapse.? This was all pretty much unchanged from April. My bedside ECHO on Aug 23 was notable for: - RV cavity size looks enlarged to me, with RV:LV cavity ratio 1:1 - 2+ TR by color alie, with CWD measuring 3.0 m/sec, gradient 36mm. - IVC measured 1.6 cm with 25% insp collapse.? CVP estimate 8 cm.? RVSP estimate 44 mm. [employer] records indicate that her BNPs were running 150-300 from 2017 until this past May.? Since then, her BNP has been climbing up to the 1000 range.? She was taking Lasix 60mg daily. The patient lives with her son Desmond who is her healthcare proxy (cell [phone]; home [phone]). The patient was admitted to [facility] [place]- for a fall, thought 2? to subacute parietal infarct.? Dr. Sharma recommended anticoagulation, altho echo showed no LV thrombus.? Course was complicated by acute delirium which then led to hypoxemic and hypercarbic respiratory failure and two-day tracheal intubation.? She was treated with Diamox, ceftriaxone, and Zithromax.? Ultimately she was discharged home on August 28.? As far as I know, she was NOT taking Eliquis. HISTORY OF PRESENT ILLNESS:? The patient was BIBA to the ED late on 09/10 because of altered mental status.? The patient denied any fevers chills or chest pain.? EMS reported that at the scene, the Sat was 88% on 2LNC. In the ED, the respiratory rate was 18 with a sat of 98% on 4 L oxygen by nasal cannula.? Heart rate was 98, blood pressure 152/74.? She was afebrile.? Patient had no JVD but she had 3+ bilateral edema.? She had mild rales noted with increased work of breathing. Labs in the ED were notable for white count of 9.6, BUN/creatinine 12/0.7, BNP 1378 (up from 762 on August 25).? Lactic acid was normal.? VBG showed 7.23/87/+6.? (Last VBG on August 25 showed 7.36/44/0.) Head CT showed expected evolution of her right parietal lobe infarct.? Chest x- ray was read as showing scattered bilateral opacities.? My reading, comparing the film to her previous films suggests pulmonary edema.? Chest CT showed multifocal right lung consolidation, especially in the lower lobe, suggestive of pneumonia.? Note that her last chest CT on August 23 also showed right lower lobe consolidation, although not as bad.? She also had mild diffuse bilateral ground-glass opacity suggestive of edema.? The patient also had a moderate to large volume of stool. She was placed on BiPAP, and then with declining mental status, subsequently intubated.? She then underwent a CT angiogram which showed no pulmonary emboli.? The CTPA also showed that the main pulmonary artery is dilated; she has marked LVH, with smallish LV cavity, such that RV:LV cavity ratio is 1.0; both atria are huge, with the LA being twice the size of the LV cavity.? The RLL infiltrate on the CTPA was much less impressive. The patient was admitted to the ICU and treated with antibiotics.? She also had AFib with RVR and was put on Levophed, diltiazem, and Bumex, and a central line was placed. Yesterday she was well sedated on propofol at 30 ug and was on very low dose Levophed at 0.03ug.? SpO2 was Sat 93% on 30% FiO2.? PvCO2 was down to 48.? She was started on a Lasix drip.? Overnite course was uneventful. This morning, she?s well sedated on propofol at 30 ug, and is on very low dose Levophed and Esmolol.? HR is 98, SR w freq PACs.? BP 107/62.? On PSV 10/30%/+5, RR is 19, with Vt 330cc, Ve 6.3L, PIP 15cm, Sat 93%.? CVBG this morning showed 7.41/49/+5.? She remains afebrile.? No JVD at 30 degrees.? Chest is clear to auscultation, with a normal expiratory phase.? Heart rate and rhythm are irregular, with normal-sounding S1 and S2, and a 2-3/6 mid-peaking systolic ejection murmur.? Abdomen shows her large midline ventral hernia, with about a golf-ball sized hard, mobile mass caudal to it (a seroma, according to Dr. Foster; unchanged from May).? She still has 2+ pretibial edema. Urine output was 1620 ml on the Lasix infusion. LABORATORY DATA:? As below.? Notably, white count is down, sodium up to 148, renal indices up to 21/1.0 on the diuresis. MICROBIOLOGY:? Sputum specimen from yest shows 1+ polys, no organisms.? Uri nalysis from last night showed 15-29 wbc's, 2+ leukocyte esterase, and 2+ urine bacteria.? Culture is growing > 100K enterococcus.? BC is growing 1/4 bottles GPC at 44 hours. IMPRESSION: 1. End-stage COPD with chronic CO2 retention.? Upped her Diamox to 500 mg IV tid.? BE is down to +6, PvCO2 is down to 49, with venous pH down to 7.41.? No evidence of COPD exacerbation.? No steroids indicated. 2. S/P right parietal stroke.? In Dr. Sharma?s opinion the location of the str malcom is most suggestive of an embolic phenomenon.? That is why he recommended anticoagulation.? Unfortunately, anticoagulation has significant risk in this patient, given her history of falls and her history of altered mental status and obtundation secondary to CO2 retention.? For now, we?ll go with just aspirin and DVT prophylaxis-dose anticoagulation, then further follow-up with Dr. Sharma this week. 3. Acute on chronic hypercapnic respiratory failure.? Secondary to either pneumonia or congestive heart failure.? The former is unlikely for the reasons noted below.? In contrast, the BNP was up to 1378, from 762 just two weeks earlier.? So CHF is much more likely.? We?ll stop the propofol today and see if she?s extubatable. 4. Possible right lower lobe pneumonia.? Her oxygenation is currently probably at her baseline, suggesting that the right lower lobe infiltrate on CT scan is of minimal clinical significance.? Furthermore, the CT angiogram may give a better view of the infiltrate than the plain CT, and shows the infiltrate and the air bronchograms to be much less impressive. ?Furthermore, the patient had a similar infiltrate on her prior CT.? So it?s not clear that anything going on there is new. ?In addition, her WBC is normal, she had no fever, and a marked lack of toxicity.? Reviewed the CT with Dr. Hernandez from pulmonary.? He is similarly unimpressed by the RLL infiltrate.? I will d/c the Zosyn and vancomycin. 5.? Possible congestive heart failure.? Her LVH is impressive, she undoubtedly has some diastolic heart failure.? Had her on Lasix drip, which I?ll stop this m orning bec of the bump in her renal indices. 6. Undoubtedly also has RHF.? Makes it difficult to diurese her because she?ll become hypotensive. 7. History of DHEERAJ.? Her head and neck habitus are highly suggestive.? She should wear CPAP or BiPAP at night. 8. Moderate-severe aortic stenosis by echo and by physical exam.? Question is, how much is that contributing to her CHF, and at what point would consideration of a TAVR be warranted.? Dr. Page saw her in May, and felt that no intervention for her valve was indicated at that time. 9. H/o thoracic aortic aneurysm.? Should be addressed as an outpatient. 10. Metabolic alkalosis.? Secondary to end-stage COPD, along with diuresis.? I ?ll drop her dose of Diamox to 250 mg bid.. 11. ID.? D/C vanco and Zosyn treatment of her pneumonia, per the above.? But I?ll leave the vanco going pending the sensitivities on the enterococcal UTI. 12. Large ventral hernia.? The patient was seen in consultation in May by Dr. Foster.? She wrote that the patient ?has a known recurrent incisional hernia and a known seroma of her lower abdominal wall?.? The patient is not a surgical candidate at this time. We turned her propofol off, and after a few hours, she became interactive, but was very sluggish, showed no interest in having the ETT removed.? We?ll wait for her to wake up more.? So far doing well on PSV. Critical care time:? 70+ minutes. Critical Care Time (minutes): 70 Physical Exam Vital Signs: Vital Signs: Last Vital Signs Temp 99.5 F 09/11/21 08:00 Pulse 79 09/11/21 09:00 Resp 20 09/11/21 09:00 BP 107/62 09/11/21 09:00 Pulse Ox 94 09/11/21 09:00 Oxygen Flow Rate 4 09/09/21 22:09 Body Mass Index 37.2 Objective Data Labs CBC & Chem 7: 09/11/21 05:14 09/11/21 05:14 Labs: Laboratory Results - last 24 hr 09/10/21 09/11/21 09/11/21 22:18 00:53 05:14 WBC 9.5 RBC 3.33 L Hgb 9.7 L Hct 32.6 L MCV 97.9 MCH 29.1 MCHC 29.8 L RDW 13.0 Plt Count 261 MPV 9.9 Immature Gran % (Auto) 0.5 H Neut % (Auto) 93.0 H Lymph % (Auto) 3.1 L [place] % (Auto) 3.3 Eos % (Auto) 0.0 Baso % (Auto) 0.1 Lymph # (Auto) 0.3 L [place] # (Auto) 0.3 Eos # (Auto) 0.0 Baso # (Auto) 0.0 Abs Immat Gran (auto) 0.05 H Absolute Neuts (auto) 8.9 H Absolute Nucleated RBC 0.000 Nucleated RBC % (auto) 0.0 Smear Tech's Comments VERIFIED VBG pH VBG pCO2 VBG pO2 VBG HCO3 VBG O2 Saturation VBG Base Excess Sodium 146 H Potassium 3.5 Chloride 108 Carbon Dioxide 31 H Anion Gap 11 L BUN 17 H Creatinine 0.95 Estim Creat Clear Calc 66.0 Estimated GFR 58 Random Glucose 171 H Calcium 8.6 Phosphorus 3.4 Magnesium 2.3 Total Bilirubin AST ALT Alkaline Phosphatase Total Protein Albumin Vancomycin Trough 14.1 09/11/21 09/11/21 05:14 05:18 WBC RBC Hgb Hct MCV MCH MCHC RDW Plt Count MPV Immature Gran % (Auto) Neut % (Auto) Lymph % (Auto) [place] % (Auto) Eos % (Auto) Baso % (Auto) Lymph # (Auto) [place] # (Auto) Eos # (Auto) Baso # (Auto) Abs Immat Gran (auto) Absolute Neuts (auto) Absolute Nucleated RBC Nucleated RBC % (auto) Smear Tech's Comments VBG pH 7.41 VBG pCO2 49 VBG pO2 47 VBG HCO3 31 H VBG O2 Saturation 74.0 VBG Base Excess 5.9 Sodium 148 H Potassium 3.5 Chloride 108 Carbon Dioxide 29 Anion Gap 15 BUN 21 H Creatinine 1.02 Estim Creat Clear Calc 61.5 Estimated GFR 54 Random Glucose 160 H Calcium 8.4 Phosphorus 4.2 Magnesium Total Bilirubin 0.7 AST 14 ALT 13 Alkaline Phosphatase 91 Total Protein 6.1 L Albumin 3.6 Vancomycin Trough Microbiology Microbiology Results: Microbiology 09/10/21 00:00 Urine Catheterized - [facility] Catheter Urine Culture - Preliminary Enterococcus/Streptococcus sp 09/10/21 05:00 Sputum - Suctioned Gram Stain - Final 09/10/21 05:00 Sputum - Suctioned Sputum Culture - Preliminary No growth to date. 09/09/21 22:41 Blood - Venous Blood Culture - Preliminary No growth after 24 hours. 09/09/21 22:41 Blood - Venous Blood Culture - Preliminary No growth after 24 hours. Quality Stroke Does the patient have a stroke diagnosis?: No VTE Prior VTE?: No VTE Risk Level:: Medical - moderate - high VTE Device Contraindication: N/A - Device Ordered VTE Drug Contraindication: N/A - Med Ordered Critical Care Time Critical Care Time (minutes): 60
--- NOTE | 2021-09-11 09:32 | PHA.MEDREC ---
Pharmacy Consult ? Medication Reconciliation Pharmacy has completed the medication reconciliation. Spoke to pts son shelby med ruben Krueger PharmD BCPS
[2021-09-11] MEDS: Esmolol HCl/NaCl Iso 2,500 MG/250 ML IV.SOLN 73.05 MG IVCONT ×3 (10:45→23:34)
[2021-09-11] MEDS: fentaNYL citrate/PF 100 MCG/2 ML VIAL 25 MCG IVPUSH ×2 (11:31→11:33)
[2021-09-11] MEDS: Esmolol HCl/NaCl Iso 2,500 MG/250 ML IV.SOLN 87.66 MG IVCONT ×2 (17:38→20:21)
[2021-09-12] VITALS (34 sets, daily range): BP systolic 86–151; BP diastolic 45–87; PULSE 72–131; RESP 17–36; TEMP 31–37.1; O2SAT 89–95; BMI 38.0
[2021-09-12] MEDS: Lactulose 20 GM/30 ML SOLUTION 30 GM G-TUBE ×4 (01:54→22:23)
[2021-09-12] MEDS: methylPREDNISolone Sod Succ 40 MG/ML VIAL IVPUSH ×3 (01:54→20:08)
[2021-09-12] MEDS: Esmolol HCl/NaCl Iso 2,500 MG/250 ML IV.SOLN 58.44 MG IVCONT ×2 (03:37→07:15)
[2021-09-12] MEDS: Enoxaparin Sodium 40 MG/0.4 ML SYRINGE SUBCUT (03:43)
[2021-09-12] MEDS: vancomycin HCL 1,500 MG in 0.9 % Sodium Chloride 500 ML 333.33 MG IV (03:44)
[2021-09-12 05:34] LABS: VBG Base Excess -0.9 mmol/L; VBG HCO3 23 mmol/L (22-26); VBG pCO2 39 mmHg; VBG pH 7.39 (7.32-7.43); VBG pO2 68 mmHg
[2021-09-12 05:48] LABS: Basophils Percent Auto 0.1 % (0-2); Hematocrit 32.3 % (37.0-47.0); Hemoglobin 9.7 g/dl (12.0-16.0); Imm Gran Abs Auto 0.14 X10*3/uL (0.00-0.03); Lymphocytes Absolute Auto 0.3 X10*3/uL (1.2-4.9); Lymphocytes Percent Auto 2.4 % (20-40); MANUAL DIFF FLAG SCAN; Mean Corpuscular Hemoglobin 29.5 pg (27.0-33.0); Mean Corpuscular Volume 98.2 fL (80.0-98.0); Mean Platelet Volume 9.6 fL (9.4-12.3); Monocytes Absolute Auto 0.6 X10*3/uL (0.1-1.2); Monocytes Percent Auto 4.6 % (2-11); Neutrophils Absolute Auto 12.3 x10*3/uL (2.0-8.3); Neutrophils Percent Auto 91.9 % (45-73); Platelet Count 209 X10*3/uL (160-400); Red Blood Count 3.29 X10*6/uL (4.20-5.50); Red Cell Distribution Width 13.2 % (11.0-16.0); SCAN SMEAR FLAG 1; White Blood Count 13.4 X10*3/uL (4.8-10.8)
[2021-09-12 06:02] LABS: Alanine Aminotransferase 13 U/L (0-31); Albumin Level 3.4 g/dL (3.5-5.0); Alkaline Phosphatase 73 U/L (39-117); Anion Gap 13 (12-20); Aspartate Amino Transferase 11 U/L (5-31); Bilirubin Total 0.5 mg/dL (0.0-1.0); Blood Urea Nitrogen 23 mg/dL (9-16); C Reactive Protein 0.53 mg/dL (< or = 0.50); Carbon Dioxide 22 mmol/L (22-29); Chloride 109 mmol/L (96-108); Creatinine Clr Calc Pharmacy 77.9; Estimated Glomerular Filt Rate > 60; Glucose Random 137 mg/dL (60-115); Phosphorus 3.9 mg/dL (2.7-4.5); Potassium 3.2 mmol/L (3.3-5.1); Sodium 141 mmol/L (135-145); Total Protein 5.7 g/dL (6.5-8.0)
[2021-09-12 06:06] LABS: Venous Blood Gas Refer to POC result
[2021-09-12 06:20] LABS: SLIDE REVIEW VERIFIED
[2021-09-12] MEDS: Pantoprazole Sodium 40 MG/10 ML VIAL IVPUSH (07:15)
[2021-09-12] MEDS: Albuterol/Iprat 2.5/0.5MG 3 ML AMPUL.NEB INHALE ×3 (07:36→19:35)
[2021-09-12] MEDS: Chlorhexidine Gluc Oral Rinse 15 ML MOUTHWASH BUCCAL (07:59)
[2021-09-12] MEDS: Potassium Chloride Packet 20 MEQ PACKET 40 MEQ PO (07:59)
--- NOTE | 2021-09-12 08:23 | MHC.CM.PN ---
pa plan is for patient to go to [facility] [place]. ref. has been made. cm to cont. to follow.
--- NOTE | 2021-09-12 10:14 | MHC.CLN ---
RE; CONSULT SEE CLINICAL NUTRITION ASSESSMENT
[2021-09-12 10:20] LABS: Free T4 (Free Thyroxine) 0.93 ng/dL (0.71-1.85)
[2021-09-12] MEDS: Esmolol HCl/NaCl Iso 2,500 MG/250 ML IV.SOLN 29.22 MG IVCONT (12:08)
--- NOTE | 2021-09-12 12:30 | CA_ITS ---
Transthoracic Echocardiogram Patient (Last, First, Middle): Amanda Maradiaga L Gender: Female Date of : 1950 Age: 71 Procedure Date: 09/12/2021 Procedure Type: Transthoracic Echocardiogram Location: ICU Height: 170.18 cm Weight: 110.22 kg BSA: 2.20 m2 Heart Rate: bpm BP: 128 / 79 mmHg Mosaicist: GIULIA Contreras MD: Kamini Proctor MD Symptoms: Study Quality: Good ECG Rhythm: Probable sinus with PACs Conclusions: - The left ventricular systolic function is normal. The visually estimated ejection fraction is between 55-60%. - Due to frequent ectopy, gradients are variable. Some of the high gradients are followed by very low gradients. Overall, probably moderate to severe aortic stenosis. Findings Left Ventricle Normal left ventricular cavity size. The left ventricular systolic function is normal. The visually estimated ejection fraction is between 55-60%. Aortic Valve There is moderate calcification of the aortic valve. The peak aortic velocity is 3.24 m/s with a calculated peak gradient of 42 mmHg. The mean gradient is 34 mmHg. The aortic valve area is 0.80 cm2. There is mild aortic valve regurgitation. Due to frequent ectopy, gradients are variable. Some of the high gradients are followed by very low gradients. Overall, probably moderate to severe aortic stenosis. Prior Study Comparison No significant change compared to prior study dated: 08/22/2021. Measurements 2D Linear Measurements LVOT Diam: 2.00 3.0+(-)1.3 cm Aortic Valve AoV Pk Trey: 3.24 AoV Mn Trey: 2.72 AoV VTI: 0.80 AoV Pk Grad: 42.00 Aov Mn Grad: 34.00 AMBAR Cont.VTI: 0.80 LVOT LVOT Pk Trey: 0.88 LVOT Mn Trey: 0.64 LVOT VTI: 0.20 LVOT Pk Grad: 3.00 LVOT Mn Grad: 2.00 LVOT Diam: 2.00 LVOT Area: 3.14 Updated in Other Vendor System with Status of Final Koby Page MD electronically signed on 09/12/2021 4:31:55 PM with status of Final
[2021-09-12] MEDS: Furosemide 20 MG/2 ML VIAL IVPUSH (13:04)
--- NOTE | 2021-09-12 16:49 | P.PNCC_ITS ---
Subjective Subjective Date of Service: 09/12/21 Interval History: 71-year-old female ongoing smoker with COPD and obstructive sleep apnea but noncompliant with CPAP but is oxygen dependent at home is admitted for the 2nd time in 2 weeks with acute on chronic hypercapnic and hypoxic respiratory failure currently doing stably well and awake off sedation and and with appropriate mental status on a pressure support trial and in normal sinus rhythm but with frequent APCs with multiple echo beats so there runs of atrial tachycardia and I did a bedside echo with marked concentric left ventr icular hypertrophy and measurably critical aortic stenosis with an aortic valve area index of 0.35 cm2 per meter squared and therefore probably the source of these 2 recent episodes of respiratory failure and I weaned of both the Cardizem and the IV esmolol which was not making any difference in the atrial ectopy she is not demonstrating any atrial fibrillation and if she were to even in the face of bifascicular block which is her baseline I would consider loading with amiodarone as as a probably more effective medication Subsequently extubated doing well on nasal cannula and will recheck 1 more blood gas in 2 hours and consider attempting CPAP or if need be nasal high-flow to sustain her overnight but we did diurese her to bring her CVP down from 15 to 9 before extubation which I think helped Critical Care Time (minutes): 60 Physical Exam Vital Signs: Vital Signs: Last Vital Signs Temp 98.6 F 09/12/21 12:00 Pulse 100 09/12/21 16:00 Resp 34 H 09/12/21 16:00 BP 116/59 L 09/12/21 16:00 Pulse Ox 92 09/12/21 16:00 Oxygen Flow Rate 4 09/09/21 22:09 Body Mass Index 38.0 Now awake and alert and appropriate and nonfocal neurologically Preserved LV systolic reserve but diminished diastolic reserve with marked concentric hypertrophy due to critical aortic valvular stenosis Diminished bilateral breath sounds but no adventitious sounds Skin intact with no peripheral edema Abdomen benign Objective Data Labs CBC & Chem 7: 09/12/21 05:28 09/12/21 05:28 Labs: Laboratory Results - last 24 hr 09/12/21 09/12/21 09/12/21 05:28 05:28 05:28 WBC 13.4 H RBC 3.29 L Hgb 9.7 L Hct 32.3 L MCV 98.2 H MCH 29.5 MCHC 30.0 L RDW 13.2 Plt Count 209 MPV 9.6 Immature Gran % (Auto) 1.0 H Neut % (Auto) 91.9 H Lymph % (Auto) 2.4 L [place] % (Auto) 4.6 Eos % (Auto) 0.0 Baso % (Auto) 0.1 Lymph # (Auto) 0.3 L [place] # (Auto) 0.6 Eos # (Auto) 0.0 Baso # (Auto) 0.0 Abs Immat Gran (auto) 0.14 H Absolute Neuts (auto) 12.3 H Absolute Nucleated RBC 0.000 Nucleated RBC % (auto) 0.0 Smear Tech's Comments VERIFIED VBG pH VBG pCO2 VBG pO2 VBG HCO3 VBG O2 Saturation VBG Base Excess Sodium 141 Potassium 3.2 L Chloride 109 H Carbon Dioxide 22 Anion Gap 13 BUN 23 H Creatinine Cancelled 0.86 Estim Creat Clear Calc Cancelled 77.9 Estimated GFR Cancelled > 60 Random Glucose 137 H Calcium 8.0 L Phosphorus 3.9 Total Bilirubin 0.5 AST 11 ALT 13 Alkaline Phosphatase 73 C-Reactive Protein 0.53 H Total Protein 5.7 L Albumin 3.4 L TSH 0.30 L Free T4 0.93 09/12/21 05:28 WBC RBC Hgb Hct MCV MCH MCHC RDW Plt Count MPV Immature Gran % (Auto) Neut % (Auto) Lymph % (Auto) [place] % (Auto) Eos % (Auto) Baso % (Auto) Lymph # (Auto) [place] # (Auto) Eos # (Auto) Baso # (Auto) Abs Immat Gran (auto) Absolute Neuts (auto) Absolute Nucleated RBC Nucleated RBC % (auto) Smear Tech's Comments VBG pH 7.39 VBG pCO2 39 VBG pO2 68 VBG HCO3 23 VBG O2 Saturation 92.0 VBG Base Excess -0.9 Sodium Potassium Chloride Carbon Dioxide Anion Gap BUN Creatinine Estim Creat Clear Calc Estimated GFR Random Glucose Calcium Phosphorus Total Bilirubin AST ALT Alkaline Phosphatase C-Reactive Protein Total Protein Albumin TSH Free T4 Microbiology Microbiology Results: Microbiology 09/09/21 22:41 Blood - Venous Blood Culture - Final Coag negative Staphylococcus 09/10/21 05:00 Sputum - Suctioned Gram Stain - Final 09/10/21 05:00 Sputum - Suctioned Sputum Culture - Final No growth. 09/10/21 00:00 Urine Catheterized - [facility] Catheter Urine Culture - Final Enterococcus faecalis 09/09/21 22:41 Blood - Venous Blood Culture - Preliminary No growth after 48 hours. Progress Note: A&P Assessment and plan (1) Acute respiratory failure: Status: Acute (2) CHF exacerbation: Status: Acute (3) COPD exacerbation: Status: Acute (4) Altered mental state: Status: Acute (5) Cerebral infarction: Status: Acute (6) Acute CVA (cerebrovascular accident): Status: Acute (7) Fall: Status: Acute (8) Thoracic aortic aneurysm (TAA): Status: Acute (9) Recurrent incisional hernia: Status: Acute (10) Acute on chronic diastolic (congestive) heart failure: Status: Acute (11) Acute on chronic respiratory failure with hypoxia and hypercapnia: Status: Acute (12) Acute CHF: Status: Acute (13) Acute metabolic encephalopathy: Status: Acute (14) Respiratory failure with hypoxia and hypercapnia: Status: Acute (15) COPD (chronic obstructive pulmonary disease): Status: Acute (16) Atrial arrhythmia: Status: Acute (17) DHEERAJ (obstructive sleep apnea): Status: Acute (18) On home oxygen therapy: Status: Acute (19) Bifascicular block: Status: Acute (20) Atherosclerotic cardiovascular disease: Status: Acute (21) Nonrheumatic aortic (valve) stenosis: Status: Acute Assessment and Plan: Possible noninvasive ventilation for nocturnally and cardiology consult was called for possible transfer to tertiary institution for cardiac catheterization and potential aortic valve replacement Quality Stroke Does the patient have a stroke diagnosis?: No VTE Prior VTE?: No VTE Risk Level:: Medical - moderate - high VTE Device Contraindication: N/A - Device Ordered VTE Drug Contraindication: N/A - Med Ordered
--- NOTE | 2021-09-12 17:14 | PC.NURSE ---
Patient remains off sedation and on PS 10/5 30%fio2 from start of shift at 0700. At 15:45 patient was extubated by RT per MD order. Patient tolerated extubation well and was placed on 2L via NC (home baseline of continuous 2L) with O2 sats trending in the low 90s. Patient alert and oriented to person only. Requires frequent orientation to hospital setting and situation. Patient's son Desmond ([phone]) was updated on health status and extubation and is currently at bedside. Patient passed nursing bedside swallow evaluation, MD aware and clear liquid diet ordered.
[2021-09-12] MEDS: Esmolol HCl/NaCl Iso 2,500 MG/250 ML IV.SOLN 33.09 MG IVCONT (20:45)
[2021-09-13] VITALS (32 sets, daily range): BP systolic 94–178; BP diastolic 34–77; PULSE 82–147; RESP 17–28; TEMP 35.9–36.8; O2SAT 88–98; BMI 37.6
[2021-09-13] MEDS: ondansetron HCL 4 MG/2 ML VIAL IVPUSH (00:50)
[2021-09-13] MEDS: Enoxaparin Sodium 40 MG/0.4 ML SYRINGE SUBCUT (01:33)
[2021-09-13] MEDS: Esmolol HCl/NaCl Iso 2,500 MG/250 ML IV.SOLN 33.09 MG IVCONT (03:40)
[2021-09-13] MEDS: vancomycin HCL 1,500 MG in 0.9 % Sodium Chloride 500 ML 333.33 MG IV (03:58)
[2021-09-13 05:32] LABS: VBG Base Excess 8.3 mmol/L; VBG HCO3 35 mmol/L (22-26); VBG pCO2 59 mmHg; VBG pH 7.37 (7.32-7.43); VBG pO2 46 mmHg
[2021-09-13 05:49] LABS: Basophils Percent Auto 0.1 % (0-2); Hematocrit 34.7 % (37.0-47.0); Hemoglobin 10.6 g/dl (12.0-16.0); Imm Gran Abs Auto 0.13 X10*3/uL (0.00-0.03); Imm Gran Pct Auto 0.7 % (0.0-0.4); Lymphocytes Absolute Auto 0.5 X10*3/uL (1.2-4.9); Lymphocytes Percent Auto 2.8 % (20-40); MANUAL DIFF FLAG SCAN; Mean Corpuscular HGB Conc 30.5 g/dl (31.0-35.0); Mean Corpuscular Hemoglobin 29.4 pg (27.0-33.0); Mean Corpuscular Volume 96.4 fL (80.0-98.0); Mean Platelet Volume 9.9 fL (9.4-12.3); Monocytes Absolute Auto 2.2 X10*3/uL (0.1-1.2); Monocytes Percent Auto 11.3 % (2-11); Neutrophils Absolute Auto 16.3 x10*3/uL (2.0-8.3); Neutrophils Percent Auto 85.1 % (45-73); Platelet Count 260 X10*3/uL (160-400); Red Cell Distribution Width 12.9 % (11.0-16.0); SCAN SMEAR FLAG 1; White Blood Count 19.2 X10*3/uL (4.8-10.8)
[2021-09-13] MEDS: Pantoprazole Sodium 40 MG/10 ML VIAL IVPUSH (06:07)
[2021-09-13 06:09] LABS: B Type Natriuretic Peptide 2832 pg/mL (<100)
[2021-09-13 06:14] LABS: Anion Gap 10 (12-20); Blood Urea Nitrogen 31 mg/dL (9-16); Calcium 8.8 mg/dL (8.4-10.2); Carbon Dioxide 33 mmol/L (22-29); Chloride 105 mmol/L (96-108); Creatinine Clr Calc Pharmacy 71.6; Estimated Glomerular Filt Rate 60; Glucose Random 131 mg/dL (60-115); Magnesium 2.6 mg/dL (1.6-2.6); Phosphorus 4.3 mg/dL (2.7-4.5); Potassium 3.4 mmol/L (3.3-5.1); Sodium 145 mmol/L (135-145)
--- NOTE | 2021-09-13 06:26 | MHC.PIE ---
Shift eval 3a-7a. Patient had complained of nausea with prev RN - zofran given previously. Responded to patient coughing, bipap alarming, patient found to have vomited with bipap mask on. Majority of vomit came out the bottom of mask - moderate amt brown liquid emesis. Bipap immediately taken off - patient orally suctioned, RT on floor and called to bedside to see patient. Patient put on 2.5 liters nasal cannula. bed bath given, linens changed, patient sat up at almost 90deg angle to ensure patient managing secretions. Patient still c/o nausea, but no more vomiting. PA Liliya aware of patient vomiting episode. O2sat maintaining 90-92%.
[2021-09-13 06:35] LABS: SLIDE REVIEW VERIFIED
[2021-09-13 07:28] LABS: Venous Blood Gas Refer to POC result
--- NOTE | 2021-09-13 08:42 | PC.NURSE ---
pt reporting nausea. notified as there are no PRN medications. MD verbalizes plan to assess patient before prescribing but hold off on giving po meds at this time.
--- NOTE | 2021-09-13 08:54 | MHC.CLN ---
F/U PT WAS EXTUBATED DIET RX: REGULAR-PT MAY BENEFIT FROM 2GM NA DIET R/T HX CAD, CHF, & CVA RECOMMEND ADDING ENSURE BID TO INCREASE KCALS FRAGILE SKIN MONITOR PO INTAKE CLOSELY
--- NOTE | 2021-09-13 10:38 | PC.NURSE ---
Pt held NPO at this time due to nausea and somnolence/ inability to effectively protect airway at this time. PO meds held including potassium, metoprolol, prednisone, and levothyroxine. aware.
[2021-09-13 10:50] LABS: Lipase 7 U/L (8-78)
--- NOTE | 2021-09-13 11:06 | P.CONCA_ITS ---
History of Present Illness History of Present Illness Date of Service: 09/13/21 Chief complaint: Resp Failure Narrative: This is a cardiology consultation regarding evaluation of aortic sten osis. Patient is well-known to us. She has a history of moderate to severe aortic stenosis. Her last office appointment was several months ago but she has had hospitalizations for respiratory failure in the interim. She has advanced COPD and she was also on home oxygen. She is to be long-term smoker but states she has not smoked in the last few months. This time again she is admitted because of patient's mentation and she was found to have high pCO2 and respiratory acidosis. She apparently decompensated quickly and at that point in time, she was intubated. Now she has extubated and we have been asked to assess her from the aortic stenosis standpoint. She denies any acute symptoms at this time but she has not moved much in mainly in bed in the ICU. Seems comfortable unable to communicate somewhat. Review of Systems Review of Systems: Yes all other systems are reviewed and are negative Cardiovascular: Cardiovascular: Reports as per HPI, Reports no additional cardiovascular complaints, Denies acrocyanosis, Denies cool extremities, Denies painful fingertips, Denies chest pain, Denies chest pain at rest, Denies diaphoresis, Denies syncope, Denies irregular heart rhythm, Denies claudication, Denies leg edema, Denies lightheadedness, Denies palpitations and Reports dyspnea Respiratory: Respiratory: Reports dyspnea Neurologic: Denies syncope Endocrine: Endocrine: Denies palpitations [facility] Past Medical History Medical History Atherosclerotic cardiovascular disease Atrial arrhythmia Bifascicular block Chronic diastolic (congestive) heart failure COPD (chronic obstructive pulmonary disease) COPD (chronic obstructive pulmonary disease) Enuresis Nonrheumatic aortic (valve) stenosis On home oxygen therapy DHEERAJ (obstructive sleep apnea) Respiratory failure with hypoxia and hypercapnia Thoracic aortic aneurysm (TAA) Urge incontinence Family History Family History Father No problems noted. Mother No problems noted. Surgical History Surgical History History of umbilical hernia repair Social History Social History Household Members: Children Housing: Apartment Housing Other:: lives alone - unsure if house or apt Do you presently have visiting nurse or other home services: No (unknown) Unable to assess alcohol history related to: Unable to respond Alcohol intake: never Patient Tobacco Use Status: Current everyday Tobacco user Use of substances other than those prescribed or required for medical reasons: Unable to respond Currently Displaying Signs/Symptoms of Drug Intoxication Withdrawal: No Advance Directives: Yes Advance Directives on File: Yes Advance Directives Date on File: 05/25/21 Do you have thoughts of harming others: None Do you have a plan to hurt others: No Plan Recently lost weight without trying: Unsure service: No Current occupational status: disabled Meds Allergies Allergy/AdvReac Type Severity Reaction Status Date / Time morphine [Morphine] Allergy Unknown UNKNOWN Verified 05/25/21 12:58 Active Medications: Current Medications Albuterol/Ipratropium (Albuterol/Iprat 2.5/0.5mg 3 Ml Ampul.Neb) 3 ml INHALE RQ6H WHILE AWAKE [facility] Last Admin: 09/13/21 07:27 Dose: Not Given Documented by: Enoxaparin Sodium (Enoxaparin Sodium 40 Mg/0.4 Ml Syringe) 40 mg SUBCUT Q24H [facility] Last Admin: 09/13/21 01:33 Dose: 40 mg Documented by: Vancomycin HCl 1,500 mg/ (Sodium Chloride) 500 mls @ 333.333 mls/hr IV Q24H [facility] Last Infusion: 09/13/21 06:02 Dose: Infused Documented by: Levothyroxine Sodium (Levothyroxine Sodium 150 Mcg Tablet) 150 mcg PO DAILY@0600 [facility] Last Admin: 09/13/21 10:37 Dose: Not Given Documented by: Metoprolol Tartrate (Metoprolol Tartrate 25 Mg Tablet) 25 mg PO BID [facility]; Protocol Last Admin: 09/13/21 10:38 Dose: Not Given Documented by: Pharmacy Consult (Consult Rx Vancomycin Dosing) 1 each MISCELLANE DAILY PRN PRN Reason: Consult order Prednisone (Prednisone 20 Mg Tablet) 40 mg PO DAILY [facility] Last Admin: 09/13/21 10:38 Dose: Not Given Documented by: Home Medications Medication Instructions Recorded Confirmed Last Taken Type atorvastatin 40 mg tablet 40 mg PO BEDTIME tab 08/19/20 09/11/21 09/09/21 Histo ry diltiazem HCl 120 mg 120 mg PO BID cap 08/19/20 09/11/21 09/09/21 History capsule,extended release 12 hr ipratropium 0.5 mg-albuterol 3 mg 3 ml INHALATION BID 08/30/20 09/11/21 09/09/21 History (2.5 mg base)/3 mL nebulization soln clonazepam 0.5 mg tablet 0.25 mg PO BEDTIME PRN tab 10/04/20 09/11/21 08/21/21 History dicyclomine 10 mg capsule 10 mg PO TIDWM cap 10/04/20 09/11/21 09/02/21 History levothyroxine 175 mcg tablet 175 mcg PO DAILY@0630 tab 10/04/20 09/11/21 08/21/21 History omeprazole 20 mg capsule,delayed 20 mg PO DAILY@0630 cap 10/04/20 09/11/21 09/09/21 History release lactulose 10 gram/15 mL oral 15 ml PO BID PRN 10/25/20 09/11/21 08/21/21 History solution furosemide 20 mg tablet 40 mg PO BID@0900,1700 tab 11/30/20 09/11/21 09/09/21 History cyanocobalamin (vitamin B-12) 1,000 mcg IM Q30D 03/31/21 09/11/21 08/21/21 Hist ory 1,000 mcg/mL injection solution gabapentin 300 mg capsule 300 mg PO BEDTIME 03/31/21 09/11/21 09/09/21 History aspirin 81 mg chewable tablet 81 mg PO DAILY 05/25/21 09/11/21 09/09/21 History fluticasone furoate 200 1 inh INHALATION BEDTIME 05/25/21 09/11/21 09/09/21 History mcg-vilanterol 25 mcg/dose inhalation powder (Breo Ellipta) oxybutynin chloride 15 mg 15 mg PO BID 05/25/21 09/11/21 09/09/21 History tablet,extended release 24 hr apixaban 2.5 mg tablet 2.5 mg PO BID 09/11/21 09/11/21 09/09/21 History buspirone 7.5 mg tablet 1 tab PO BID 09/11/21 09/11/21 09/09/21 History tiotropium bromide 18 mcg capsule 1 cap INHALATION DAILY 09/11/21 09/11/21 09/09/21 History with inhalation device (Spiriva with HandiHaler) trazodone 50 mg tablet 0.5 tab PO BEDTIME PRN 09/11/21 09/11/21 Unknown History vilazodone 40 mg tablet (Viibryd) 1 tab PO DAILY 09/11/21 09/11/21 09/09/21 History Physical Exam Vital Signs: Vital Signs: Last Vital Signs Temp 96.7 F L 09/13/21 08:00 Pulse 117 H 09/13/21 10:00 Resp 19 09/13/21 10:00 BP 143/56 H 09/13/21 10:00 Pulse Ox 91 L 09/13/21 10:00 Oxygen Flow Rate 4 09/09/21 22:09 Body Mass Index 37.6 Const: General: cooperative and no acute distress HENMT: Other: Unremarkable Neck: Neck: Yes normal visual inspection Chest: Chest palpation & inspection: normal inspection of the chest Resp: Auscultation: crackles and diminished lung sounds Cardio: Jugular venous distension: no JVD Palpation: normal PMI Heart sounds: S1 normal heart sound present, S2 normal heart sound present, no gallops, no murmurs and no rubs GI: Palpation (GI): Soft to palpation Back/Spine/Pelvis: Other: unremarkable Skin: General skin exam: no rashes or lesions noted Neuro: Cranial nerves: Yes Other cranial nerve findings present Extrem: General: Yes no clubbing, cyanosis or edema Psych: Mental Status: other Objective Labs and Meds Result diagrams: 09/13/21 05:24 09/13/21 05:24 Lab results: Laboratory Results - last 24 hr 09/13/21 09/13/21 09/13/21 05:24 05:24 05:24 WBC 19.2 H RBC 3.60 L Hgb 10.6 L Hct 34.7 L MCV 96.4 MCH 29.4 MCHC 30.5 L RDW 12.9 Plt Count 260 MPV 9.9 Immature Gran % (Auto) 0.7 H Neut % (Auto) 85.1 H Lymph % (Auto) 2.8 L [place] % (Auto) 11.3 H Eos % (Auto) 0.0 Baso % (Auto) 0.1 Lymph # (Auto) 0.5 L [place] # (Auto) 2.2 H Eos # (Auto) 0.0 Baso # (Auto) 0.0 Abs Immat Gran (auto) 0.13 H Absolute Neuts (auto) 16.3 H Absolute Nucleated RBC 0.000 Nucleated RBC % (auto) 0.0 Smear Tech's Comments VERIFIED VBG pH VBG pCO2 VBG pO2 VBG HCO3 VBG O2 Saturation VBG Base Excess Sodium 145 Potassium 3.4 Chloride 105 Carbon Dioxide 33 H Anion Gap 10 L BUN 31 H Creatinine 0.93 Estim Creat Clear Calc 71.6 Estimated GFR 60 Random Glucose 131 H Calcium 8.8 D Phosphorus 4.3 Magnesium 2.6 B-Natriuretic Peptide 2832 H Lipase 09/13/21 09/13/21 05:25 10:13 WBC RBC Hgb Hct MCV MCH MCHC RDW Plt Count MPV Immature Gran % (Auto) Neut % (Auto) Lymph % (Auto) [place] % (Auto) Eos % (Auto) Baso % (Auto) Lymph # (Auto) [place] # (Auto) Eos # (Auto) Baso # (Auto) Abs Immat Gran (auto) Absolute Neuts (auto) Absolute Nucleated RBC Nucleated RBC % (auto) Smear Tech's Comments VBG pH 7.37 VBG pCO2 59 VBG pO2 46 VBG HCO3 35 H VBG O2 Saturation 71.0 VBG Base Excess 8.3 Sodium Potassium Chloride Carbon Dioxide Anion Gap BUN Creatinine Estim Creat Clear Calc Estimated GFR Random Glucose Calcium Phosphorus Magnesium B-Natriuretic Peptide Lipase 7 L ECG Interpretation: EKG with sinus tachycardia 102/Min; frequent PACs, right bundle- branch block pattern and left anterior fascicular block pattern. Overall, rate has gone up compared to the last EKG. Upon telemetry, she had sinus tachycardia with frequent PACs and could be multifocal atrial tachycardia. Imaging Radiologist's impression: Impressions KUB X-Ray 09/13/21 10:09 IMPRESSION: Moderate distended colon with stool and gas and small bowel loops with gas likely secondary to significant constipation. Assessment and Plan (1) Acute on chronic respiratory failure with hypoxia and hypercapnia: Status: Acute (2) Acute on chronic diastolic (congestive) heart failure: Status: Acute (3) Atrial tachycardia: Status: Acute (4) Nonrheumatic aortic (valve) stenosis: Status: Acute High sensitivity troponin 35.9. Earlier this month it was 162 and hence s eems improved. Cardiac BNP is 2832. On the was 3078. On the [place] the of this month it was 762. Hence higher than before. Her chest CTA reports no pulmonary emboli. Evidence of pulmonary hypertension. Multifocal consolidations in the right lung suspicious for pneumonia and mild pulmonary edema. In the echocardiogram, LVEF is 55-60%. As she has very frequent atrial ectopy, the gradients of markedly variable. Overall no more than moderate to severe stenosis. Based on her presentation, suspect this is much more likely pulmonary in nature. The aortic stenosis complicates the picture but do not feel that is a primary issue. At this time, still continue to manage the pulmonary issues/COPD accordingly. Will follow with you. Procedures Date of Service Date of Service: 09/13/21
[2021-09-13 13:03] LABS: VBG HCO3 33 mmol/L (22-26); VBG pCO2 65 mmHg; VBG pH 7.32 (7.32-7.43); VBG pO2 49 mmHg
[2021-09-13] MEDS: Albuterol/Iprat 2.5/0.5MG 3 ML AMPUL.NEB INHALE ×2 (13:20→19:45)
[2021-09-13 13:34] LABS: Venous Blood Gas Refer to POC result
--- NOTE | 2021-09-13 14:53 | PC.NURSE ---
Around 1245 inserted 18F NG tube into left nares and set to continuous suction per MD order. Patient tolerated fair with small amount of brown emesis during insertion, MD aware. Upon insertion, NG tube drained 1500 ml of brown stomach contents. At 1300 soap suds enema administered. Patient tolerated well. No stool removed at this time. MD aware.
--- NOTE | 2021-09-13 17:11 | P.PNCC_ITS ---
Subjective Subjective Date of Service: 09/13/21 Interval History: 71-year-old female heavy continuous smoker with underlying COPD and chronic carbon dioxide retention presents again and repeatedly with acute on chronic hypercarbic respiratory failure but on my be bedside examination by echo feel she has critical aortic valvular stenosis and the diastolic CHF may have played a role as the acute proximate cause of her respiratory failure but she has psychiatric issues including a long history of major depression with suicide attempt in the past and is highly uncooperative when awakening in she had been intubated and was successfully extubated but continues to depend on intermittent BiPAP use Be of no significant p.o. intake because she does not cooperate with the swallow evaluation and she became extremely lethargic on the Zyprexa that was given to her for agitation Also beginning to become hypernatremic She also has continuous multiple runs of atrial tachycardia superimposed on normal sinus rhythm Currently on IV vancomycin for an enterococcal urinary tract infection Critical Care Time (minutes): 45 Physical Exam Vital Signs: Vital Signs: Last Vital Signs Temp 98.3 F 09/13/21 16:00 Pulse 110 H 09/13/21 16:00 Resp 22 H 09/13/21 16:00 BP 114/48 L 09/13/21 16:00 Pulse Ox 90 L 09/13/21 16:00 Oxygen Flow Rate 4 09/09/21 22:09 Body Mass Index 37.6 Awake oriented to person and place nonfocal neurologically Parvus and tardus carotid upstrokes but late peaking systolic ejection murmur consistent with significant aortic stenosis Abdomen soft with no organomegaly but did distended due to obstipation Objective Data Labs CBC & Chem 7: 09/15/21 05:34 09/15/21 05:34 Labs: Laboratory Results - last 24 hr 09/13/21 09/13/21 09/13/21 05:24 05:24 05:24 WBC 19.2 H RBC 3.60 L Hgb 10.6 L Hct 34.7 L MCV 96.4 MCH 29.4 MCHC 30.5 L RDW 12.9 Plt Count 260 MPV 9.9 Immature Gran % (Auto) 0.7 H Neut % (Auto) 85.1 H Lymph % (Auto) 2.8 L [place] % (Auto) 11.3 H Eos % (Auto) 0.0 Baso % (Auto) 0.1 Lymph # (Auto) 0.5 L [place] # (Auto) 2.2 H Eos # (Auto) 0.0 Baso # (Auto) 0.0 Abs Immat Gran (auto) 0.13 H Absolute Neuts (auto) 16.3 H Absolute Nucleated RBC 0.000 Nucleated RBC % (auto) 0.0 Smear Tech's Comments VERIFIED VBG pH VBG pCO2 VBG pO2 VBG HCO3 VBG O2 Saturation VBG Base Excess Sodium 145 Potassium 3.4 Chloride 105 Carbon Dioxide 33 H Anion Gap 10 L BUN 31 H Creatinine 0.93 Estim Creat Clear Calc 71.6 Estimated GFR 60 Random Glucose 131 H Calcium 8.8 D Phosphorus 4.3 Magnesium 2.6 B-Natriuretic Peptide 2832 H Lipase 09/13/21 09/13/21 09/13/21 05:25 10:13 12:57 WBC RBC Hgb Hct MCV MCH MCHC RDW Plt Count MPV Immature Gran % (Auto) Neut % (Auto) Lymph % (Auto) [place] % (Auto) Eos % (Auto) Baso % (Auto) Lymph # (Auto) [place] # (Auto) Eos # (Auto) Baso # (Auto) Abs Immat Gran (auto) Absolute Neuts (auto) Absolute Nucleated RBC Nucleated RBC % (auto) Smear Tech's Comments VBG pH 7.37 7.32 VBG pCO2 59 65 VBG pO2 46 49 VBG HCO3 35 H 33 H VBG O2 Saturation 71.0 75.0 VBG Base Excess 8.3 6.0 Sodium Potassium Chloride Carbon Dioxide Anion Gap BUN Creatinine Estim Creat Clear Calc Estimated GFR Random Glucose Calcium Phosphorus Magnesium B-Natriuretic Peptide Lipase 7 L Microbiology Microbiology Results: Microbiology 09/12/21 05:32 Blood - Venous Blood Culture - Preliminary No growth after 24 hours. 09/12/21 05:20 Blood - Venous Blood Culture - Preliminary No growth after 24 hours. 09/09/21 22:41 Blood - Venous Blood Culture - Final Coag negative Staphylococcus 09/10/21 05:00 Sputum - Suctioned Gram Stain - Final 09/10/21 05:00 Sputum - Suctioned Sputum Culture - Final No growth. 09/10/21 00:00 Urine Catheterized - [facility] Catheter Urine Culture - Final Enterococcus faecalis 09/09/21 22:41 Blood - Venous Blood Culture - Preliminary No growth after 48 hours. Progress Note: A&P Assessment and plan (1) Atrial tachycardia: Status: Acute (2) Acute respiratory failure: Status: Acute (3) CHF exacerbation: Status: Acute (4) COPD exacerbation: Status: Acute (5) Altered mental state: Status: Acute (6) Cerebral infarction: Status: Acute (7) Thoracic aortic aneurysm (TAA): Status: Acute (8) Recurrent incisional hernia: Status: Acute (9) Acute on chronic diastolic (congestive) heart failure: Status: Acute (10) Acute on chronic respiratory failure with hypoxia and hypercapnia: Status: Acute (11) Acute metabolic encephalopathy: Status: Acute (12) COPD (chronic obstructive pulmonary disease): Status: Acute (13) DHEERAJ (obstructive sleep apnea): Status: Acute (14) On home oxygen therapy: Status: Acute (15) Bifascicular block: Status: Acute (16) Nonrheumatic aortic (valve) stenosis: Status: Acute Assessment and Plan: The plan is to start some free water replacement for the hypernatremia and given the degree of gastric did distension as well as small-bowel obstruction might attempt disimpaction and the use of enemas from below place at NG tube and continuous suction because of aspiration risk Quality Stroke Does the patient have a stroke diagnosis?: No VTE Prior VTE?: No VTE Risk Level:: Medical - moderate - high VTE Device Contraindication: N/A - Device Ordered VTE Drug Contraindication: N/A - Med Ordered
[2021-09-13 17:44] LABS: VBG Base Excess 9.1 mmol/L; VBG HCO3 36 mmol/L (22-26); VBG pCO2 63 mmHg; VBG pH 7.36 (7.32-7.43); VBG pO2 46 mmHg
[2021-09-13 18:48] LABS: Venous Blood Gas Refer to POC result
[2021-09-14] VITALS (33 sets, daily range): BP systolic 90–138; BP diastolic 42–74; PULSE 78–134; RESP 16–28; TEMP -13.1–37.9; O2SAT 88–100
[2021-09-14] MEDS: Mineral OiL enema 133 ML ENEMA PR ×2 (00:58→21:07)
[2021-09-14 01:01] LABS: MANUAL DIFF FLAG NO
[2021-09-14 01:03] LABS: Eosinophils Absolute Auto 0.1 X10*3/uL (0.0-0.4); Eosinophils Percent Auto 0.9 % (0-4); Hematocrit 32.7 % (37.0-47.0); Hemoglobin 9.9 g/dl (12.0-16.0); Imm Gran Abs Auto 0.02 X10*3/uL (0.00-0.03); Imm Gran Pct Auto 0.3 % (0.0-0.4); Lymphocytes Absolute Auto 0.4 X10*3/uL (1.2-4.9); Lymphocytes Percent Auto 4.6 % (20-40); Mean Corpuscular HGB Conc 30.3 g/dl (31.0-35.0); Mean Corpuscular Hemoglobin 29.7 pg (27.0-33.0); Mean Corpuscular Volume 98.2 fL (80.0-98.0); Monocytes Absolute Auto 1.1 X10*3/uL (0.1-1.2); Monocytes Percent Auto 13.6 % (2-11); Neutrophils Absolute Auto 6.4 x10*3/uL (2.0-8.3); Neutrophils Percent Auto 80.6 % (45-73); Platelet Count 161 X10*3/uL (160-400); Red Blood Count 3.33 X10*6/uL (4.20-5.50); Red Cell Distribution Width 13.1 % (11.0-16.0); White Blood Count 7.9 X10*3/uL (4.8-10.8)
[2021-09-14 01:04] LABS: VBG HCO3 39 mmol/L (22-26); VBG pCO2 66 mmHg; VBG pH 7.38 (7.32-7.43); VBG pO2 47 mmHg
[2021-09-14 01:23] LABS: Anion Gap 11 (12-20); Blood Urea Nitrogen 27 mg/dL (9-16); Calcium 8.1 mg/dL (8.4-10.2); Carbon Dioxide 33 mmol/L (22-29); Chloride 108 mmol/L (96-108); Creatinine Clr Calc Pharmacy 97.8; Estimated Glomerular Filt Rate > 60; Glucose Random 102 mg/dL (60-115); Potassium 3.5 mmol/L (3.3-5.1); Sodium 148 mmol/L (135-145)
[2021-09-14 02:45] LABS: Venous Blood Gas Refer to POC result
[2021-09-14] MEDS: Enoxaparin Sodium 40 MG/0.4 ML SYRINGE SUBCUT (02:49)
[2021-09-14] MEDS: Phenylephrine HCL 20 MG in 0.9 % Sodium Chloride 250 ML 24.72 MG IVCONT (02:51)
[2021-09-14 02:57] LABS: Vancomycin Trough 12.6 mcg/mL (10.0-20.0)
[2021-09-14] MEDS: vancomycin HCL 1,500 MG in 0.9 % Sodium Chloride 500 ML 333.33 MG IV (03:34)
[2021-09-14 05:40] LABS: VBG Base Excess 10.5 mmol/L; VBG HCO3 38 mmol/L (22-26); VBG pCO2 66 mmHg; VBG pH 7.36 (7.32-7.43); VBG pO2 47 mmHg
[2021-09-14 05:55] LABS: MANUAL DIFF FLAG NO
[2021-09-14 06:10] LABS: Eosinophils Absolute Auto 0.1 X10*3/uL (0.0-0.4); Eosinophils Percent Auto 1.3 % (0-4); Hematocrit 32.9 % (37.0-47.0); Hemoglobin 9.7 g/dl (12.0-16.0); Imm Gran Abs Auto 0.01 X10*3/uL (0.00-0.03); Imm Gran Pct Auto 0.1 % (0.0-0.4); Lymphocytes Absolute Auto 0.5 X10*3/uL (1.2-4.9); Mean Corpuscular HGB Conc 29.5 g/dl (31.0-35.0); Mean Corpuscular Volume 98.5 fL (80.0-98.0); Mean Platelet Volume 10.1 fL (9.4-12.3); Monocytes Absolute Auto 1.1 X10*3/uL (0.1-1.2); Monocytes Percent Auto 12.1 % (2-11); Neutrophils Absolute Auto 7.2 x10*3/uL (2.0-8.3); Neutrophils Percent Auto 80.5 % (45-73); Platelet Count 208 X10*3/uL (160-400); Red Blood Count 3.34 X10*6/uL (4.20-5.50); Red Cell Distribution Width 12.9 % (11.0-16.0); White Blood Count 8.9 X10*3/uL (4.8-10.8)
[2021-09-14 06:40] LABS: B Type Natriuretic Peptide 2235 pg/mL (<100)
[2021-09-14 06:42] LABS: Anion Gap 9 (12-20); Blood Urea Nitrogen 26 mg/dL (9-16); Calcium 8.1 mg/dL (8.4-10.2); Carbon Dioxide 33 mmol/L (22-29); Chloride 109 mmol/L (96-108); Estimated Glomerular Filt Rate > 60; Glucose Random 95 mg/dL (60-115); Magnesium 2.4 mg/dL (1.6-2.6); Phosphorus 2.8 mg/dL (2.7-4.5); Potassium 3.6 mmol/L (3.3-5.1); Sodium 147 mmol/L (135-145)
--- NOTE | 2021-09-14 07:15 | HE.PHANOTE ---
Vancomycin Dosing Addendum Based on new trough of 12.6 dose adjusted to 1000mg q 12. New AUC target of 446. Trough of 13.9 and tox of 9%. Next trough 12 @ 1300
[2021-09-14 07:19] LABS: Glucose, Whole Blood 91 mg/dL (60-115)
[2021-09-14 07:22] LABS: Venous Blood Gas Refer to POC result
[2021-09-14] MEDS: Albuterol/Iprat 2.5/0.5MG 3 ML AMPUL.NEB INHALE ×3 (08:12→19:19)
[2021-09-14 09:56] LABS: Erythrocyte Sedimentation Rate 14 MM/HR (0-20)
[2021-09-14 10:45] LABS: VBG Base Excess 10.1 mmol/L; VBG HCO3 36 mmol/L (22-26); VBG pCO2 55 mmHg; VBG pH 7.42 (7.32-7.43); VBG pO2 79 mmHg
[2021-09-14] MEDS: KCl 20 mEq in 5% Dex/0.45% Sod 20 MEQ/1,000 ML IV.SOLN 100 MEQ IVCONT (12:46)
[2021-09-14 12:57] LABS: Venous Blood Gas Refer to POC result
[2021-09-14] MEDS: vancomycin HCL 1,000 MG in 0.9 % Sodium Chloride 250 ML 270 MG IV (15:22)
--- NOTE | 2021-09-14 16:09 | PC.NURSE ---
pt failed nursing dysphasia screening, consult to speech therapy for bedside swallow ordered . Pt is very anxious ,demanding food , requires frequent redirection.
--- NOTE | 2021-09-14 17:00 | PM.CCPN ---
Subjective Subjective Date of Service: 09/14/21 Interval History: 71-year-old female who presented with altered mental status with acute on chronic hypercarbic and hypoxic respiratory failure and possibly precipitated due to diastolic CHF from critical aortic stenosis Longstanding psychiatric history intermittent agitation and longstanding major depression and not very cooperative here post extubation because of which she requires in the intermittent atypical antipsychotic which then makes her lethargic and unfortunately uncooperative when awake because of agitation On progressive hypernatremia despite did dilute fluid replacement And normal sinus rhythm with continuous multiple rib very short nonsustained runs of atrial tachycardia Critical Care Time (minutes): 45 Physical Exam Vital Signs: Vital Signs: Last Vital Signs Temp 98.5 F 09/14/21 15:54 Pulse 86 09/14/21 15:54 Resp 20 09/14/21 15:54 BP 97/56 L 09/14/21 15:54 Pulse Ox 93 09/14/21 15:54 Oxygen Flow Rate 4 09/09/21 22:09 BMI result Body Mass Index 37.6 Remains awake in but when receiving Zyprexa becomes very lethargic and has recurrent hypercarbia and no requires throughout the day intermittent use of BiPAP and chest x-ray remained stable and she still remains on vancomycin for an enterococcal urinary tract infection but I also note that her CVP line site is red and swollen will DC that line culture the tip and blood but she has no fever or white count Parvus and tardus carotid upstrokes but late peaking systolic murmur consistent with aortic stenosis of significance Benign abdomen softer and less distended since the breast disimpaction Skin intact Chest without adventitious sounds Objective Data Labs CBC & Chem 7: 09/15/21 05:34 09/15/21 05:34 Labs: Laboratory Results - last 24 hr 09/13/21 09/14/21 09/14/21 17:38 00:55 00:55 WBC 7.9 RBC 3.33 L Hgb 9.9 L Hct 32.7 L MCV 98.2 H MCH 29.7 MCHC 30.3 L RDW 13.1 Plt Count 161 D MPV 9.0 L Immature Gran % (Auto) 0.3 Neut % (Auto) 80.6 H Lymph % (Auto) 4.6 L [place] % (Auto) 13.6 H Eos % (Auto) 0.9 Baso % (Auto) 0.0 Lymph # (Auto) 0.4 L [place] # (Auto) 1.1 Eos # (Auto) 0.1 Baso # (Auto) 0.0 Abs Immat Gran (auto) 0.02 Absolute Neuts (auto) 6.4 Absolute Nucleated RBC 0.000 Nucleated RBC % (auto) 0.0 ESR VBG pH 7.36 VBG pCO2 63 VBG pO2 46 VBG HCO3 36 H VBG O2 Saturation 72.0 VBG Base Excess 9.1 Sodium 148 H Potassium 3.5 Chloride 108 Carbon Dioxide 33 H Anion Gap 11 L BUN 27 H Creatinine 0.68 Estim Creat Clear Calc 97.8 Estimated GFR > 60 POC Glucose Random Glucose 102 Calcium 8.1 L D Phosphorus Magnesium B-Natriuretic Peptide Vancomycin Trough 09/14/21 09/14/21 09/14/21 00:57 01:50 05:34 WBC RBC Hgb Hct MCV MCH MCHC RDW Plt Count MPV Immature Gran % (Auto) Neut % (Auto) Lymph % (Auto) [place] % (Auto) Eos % (Auto) Baso % (Auto) Lymph # (Auto) [place] # (Auto) Eos # (Auto) Baso # (Auto) Abs Immat Gran (auto) Absolute Neuts (auto) Absolute Nucleated RBC Nucleated RBC % (auto) ESR VBG pH 7.38 VBG pCO2 66 VBG pO2 47 VBG HCO3 39 H VBG O2 Saturation 75.0 VBG Base Excess 12.0 Sodium 147 H Potassium 3.6 Chloride 109 H Carbon Dioxide 33 H Anion Gap 9 L BUN 26 H Creatinine 0.64 Estim Creat Clear Calc 104.0 Estimated GFR > 60 POC Glucose Random Glucose 95 Calcium 8.1 L Phosphorus 2.8 Magnesium 2.4 B-Natriuretic Peptide Vancomycin Trough 12.6 09/14/21 09/14/21 09/14/21 05:34 05:34 05:34 WBC 8.9 RBC 3.34 L Hgb 9.7 L Hct 32.9 L MCV 98.5 H MCH 29.0 MCHC 29.5 L RDW 12.9 Plt Count 208 D MPV 10.1 Immature Gran % (Auto) 0.1 Neut % (Auto) 80.5 H Lymph % (Auto) 6.0 L [place] % (Auto) 12.1 H Eos % (Auto) 1.3 Baso % (Auto) 0.0 Lymph # (Auto) 0.5 L [place] # (Auto) 1.1 Eos # (Auto) 0.1 Baso # (Auto) 0.0 Abs Immat Gran (auto) 0.01 Absolute Neuts (auto) 7.2 Absolute Nucleated RBC 0.000 Nucleated RBC % (auto) 0.0 ESR VBG pH 7.36 VBG pCO2 66 VBG pO2 47 VBG HCO3 38 H VBG O2 Saturation 75.0 VBG Base Excess 10.5 Sodium Potassium Chloride Carbon Dioxide Anion Gap BUN Creatinine Estim Creat Clear Calc Estimated GFR POC Glucose Random Glucose Calcium Phosphorus Magnesium B-Natriuretic Peptide 2235 H Vancomycin Trough 09/14/21 09/14/21 09/14/21 07:10 08:46 10:38 WBC RBC Hgb Hct MCV MCH MCHC RDW Plt Count MPV Immature Gran % (Auto) Neut % (Auto) Lymph % (Auto) [place] % (Auto) Eos % (Auto) Baso % (Auto) Lymph # (Auto) [place] # (Auto) Eos # (Auto) Baso # (Auto) Abs Immat Gran (auto) Absolute Neuts (auto) Absolute Nucleated RBC Nucleated RBC % (auto) ESR 14 VBG pH 7.42 VBG pCO2 55 VBG pO2 79 VBG HCO3 36 H VBG O2 Saturation 96.0 VBG Base Excess 10.1 Sodium Potassium Chloride Carbon Dioxide Anion Gap BUN Creatinine Estim Creat Clear Calc Estimated GFR POC Glucose 91 Random Glucose Calcium Phosphorus Magnesium B-Natriuretic Peptide Vancomycin Trough Microbiology Microbiology Results: Microbiology 09/12/21 05:20 Blood - Venous Blood Culture - Preliminary No growth after 48 hours. 09/12/21 05:32 Blood - Venous Blood Culture - Preliminary No growth after 48 hours. 09/09/21 22:41 Blood - Venous Blood Culture - Final Coag negative Staphylococcus 09/10/21 05:00 Sputum - Suctioned Gram Stain - Final 09/10/21 05:00 Sputum - Suctioned Sputum Culture - Final No growth. 09/10/21 00:00 Urine Catheterized - [facility] Catheter Urine Culture - Final Enterococcus faecalis 09/09/21 22:41 Blood - Venous Blood Culture - Preliminary No growth after 48 hours. Progress Note: A&P Assessment and plan (1) Atrial tachycardia: Status: Acute (2) CHF exacerbation: Status: Acute (3) COPD exacerbation: Status: Acute (4) Altered mental state: Status: Acute (5) Cerebral infarction: Status: Acute (6) Acute CVA (cerebrovascular accident): Status: Acute (7) Thoracic aortic aneurysm (TAA): Status: Acute (8) Recurrent incisional hernia: Status: Acute (9) Acute on chronic respiratory failure with hypoxia and hypercapnia: Status: Acute (10) Acute on chronic diastolic (congestive) heart failure: Status: Acute (11) Acute metabolic encephalopathy: Status: Acute (12) Respiratory failure with hypoxia and hypercapnia: Status: Acute (13) COPD (chronic obstructive pulmonary disease): Status: Acute (14) Atrial arrhythmia: Status: Acute (15) DHEERAJ (obstructive sleep apnea): Status: Acute (16) Hypernatremia: Status: Acute Assessment and Plan: The difficult to plan for her because of behavioral issues but at this point will discontinue the NG tube because there is no drainage any longer that would allow a better seal now with the BiPAP device and discontinuing the central line culturing the tip and blood Continue IV fluid and follow progress of the hypernatremia Quality Stroke Does the patient have a stroke diagnosis?: No VTE Prior VTE?: No VTE Risk Level:: Medical - moderate - high VTE Device Contraindication: N/A - Device Ordered VTE Drug Contraindication: N/A - Med Ordered
[2021-09-14] MEDS: OLANZapine 10 MG VIAL 5 MG IM (23:54)
[2021-09-15] VITALS (30 sets, daily range): BP systolic 96–128; BP diastolic 42–89; PULSE 61–124; RESP 17–34; TEMP 36.6–37.5; O2SAT 89–99; BMI 35.9
[2021-09-15] MEDS: OLANZapine 10 MG VIAL 2.5 MG IM ×3 (00:05→17:29)
[2021-09-15] MEDS: KCl 20 mEq in 5% Dex/0.45% Sod 20 MEQ/1,000 ML IV.SOLN 100 MEQ IVCONT (00:27)
[2021-09-15] MEDS: Phenylephrine HCL 20 MG in 0.9 % Sodium Chloride 250 ML 41.2 MG IVCONT ×3 (01:02→21:08)
[2021-09-15] MEDS: Enoxaparin Sodium 40 MG/0.4 ML SYRINGE SUBCUT (03:00)
[2021-09-15] MEDS: vancomycin HCL 1,000 MG in 0.9 % Sodium Chloride 250 ML 270 MG IV (03:00)
[2021-09-15 05:41] LABS: MANUAL DIFF FLAG NO
[2021-09-15 05:44] LABS: Eosinophils Absolute Auto 0.4 X10*3/uL (0.0-0.4); Eosinophils Percent Auto 3.6 % (0-4); Hematocrit 31.9 % (37.0-47.0); Hemoglobin 9.2 g/dl (12.0-16.0); Imm Gran Abs Auto 0.03 X10*3/uL (0.00-0.03); Imm Gran Pct Auto 0.3 % (0.0-0.4); Lymphocytes Absolute Auto 1.4 X10*3/uL (1.2-4.9); Lymphocytes Percent Auto 13.7 % (20-40); Mean Corpuscular HGB Conc 28.8 g/dl (31.0-35.0); Mean Corpuscular Hemoglobin 28.8 pg (27.0-33.0); Mean Platelet Volume 9.7 fL (9.4-12.3); Monocytes Absolute Auto 1.1 X10*3/uL (0.1-1.2); Monocytes Percent Auto 11.2 % (2-11); Neutrophils Absolute Auto 7.2 x10*3/uL (2.0-8.3); Neutrophils Percent Auto 71.2 % (45-73); Platelet Count 202 X10*3/uL (160-400); Red Blood Count 3.19 X10*6/uL (4.20-5.50); White Blood Count 10.1 X10*3/uL (4.8-10.8)
[2021-09-15 05:55] LABS: VBG Base Excess 11.3 mmol/L; VBG HCO3 39 mmol/L (22-26); VBG pCO2 70 mmHg; VBG pH 7.35 (7.32-7.43); VBG pO2 57 mmHg
[2021-09-15 06:04] LABS: Anion Gap 8 (12-20); Blood Urea Nitrogen 20 mg/dL (9-16); Calcium 8.2 mg/dL (8.4-10.2); Carbon Dioxide 34 mmol/L (22-29); Chloride 111 mmol/L (96-108); Creatinine Clr Calc Pharmacy 107.4; Estimated Glomerular Filt Rate > 60; Glucose Random 108 mg/dL (60-115); Magnesium 2.4 mg/dL (1.6-2.6); Phosphorus 2.4 mg/dL (2.7-4.5); Potassium 3.5 mmol/L (3.3-5.1); Sodium 149 mmol/L (135-145)
[2021-09-15 06:06] LABS: B Type Natriuretic Peptide 2049 pg/mL (<100); Venous Blood Gas Refer to POC result
[2021-09-15] MEDS: Levothyroxine Sodium 150 MCG TABLET PO (06:30)
[2021-09-15] MEDS: KCl 20 mEq in 5 % Dextrose 20 MEQ/1,000 ML IV.SOLN 80 MEQ IVCONT ×2 (06:44→19:41)
[2021-09-15] MEDS: Albuterol/Iprat 2.5/0.5MG 3 ML AMPUL.NEB INHALE ×3 (08:00→20:56)
[2021-09-15] MEDS: Metoprolol Tartrate 25 MG TABLET PO (08:07)
[2021-09-15] MEDS: predniSONE 5 MG TABLET 35 MG PO (08:08)
--- NOTE | 2021-09-15 10:11 | MHC.CLN ---
Addendum entered by Toshia Burnett, GILBERT 09/15/21 13:36: AGREE WITH PROVIDER'S ASSESSMENT BELOW Original Note: F/U DIET RX: 2GM NA-APPROPRIATE DECREASED PO INTAKE R/T BIPAP, PT RECEIVING ENSURE SUPPLEMENT BID SUPPLEMENT PROVIDES 700 KCALS AND 32 GRAMS PROTEIN CONTINUE TO MONITOR PO INTAKE CLOSELY
--- NOTE | 2021-09-15 11:52 | PM.PSYCN ---
History of Present Illness Date of Service: 09/15/21 Chief Complaint: Resp Failure Reason for Consult: agitation Requesting physician: Kamini Proctor Discussed with referring provider: Yes Sources of Information: chart reviewed HPI Narrative: Patient is a 71-year-old female with complex medical history, with previous admissions to the ICU this past May and August 2021. PMHx includes obesity, irreparable large ventral hernia(s) s/p previous repair attempt, ongoing smoker, DHEERAJ, chronic oxygen-dependent COPD with CO2 retention, moderate aortic stenosis, diastolic congestive heart failure, atrial arrhythmia, bifascicular block, thoracic aortic aneurysm, hyperlipidemia, anxiety, B12 deficiency, irritable bowel syndrome, GERD, and hypothyroidism.? She?s on 2L NC at home and she?s had consistently elevated serum bicarbonate level since Aug, 2020.? She was admitted to ICU on 09/10/21 with acute respiratory failure after being intubated in the ED. She lives with her son Desmond who is also her healthcare proxy. This keno writer / runner attempted to reach him at cell phone [phone], no answer. This keno writer / runner attempted to meet with her this morning and again this afternoon. However, she was asleep both times. She had received Zyprexa 7.5 mg IM at approximately midnight, and has been sleeping. This keno writer / runner met with physician and healthcare staff, and was informed that patient has had AMS, agitation, and has been yelling and screaming when awake. A chart review showed that she has major depressive disorder, and a history of suicidal ideation. She was hospitalized in August 2018 for an intentional overdose with diltiazem and atorvastin. There was a SWAT team evaluation completed in August 2018, for reports of anxiety, depression, with suicidal ideation. Patient at that time had reported that she had been inpatient on apt to at [facility] for psychiatric reasons, including depression. Through reviewing prescription monitoring and home medication list, it was noted that patient has current scripts for psychiatric medications including Viibryd,, BuSpar, Klonopin, gabapentin, trazodone. She also receives levothyroxine 175 mcg daily. She has not received these since admission 4 days ago, due to intubation. She has since been extubated, but has not yet been able to take po meds. Past Psychiatric History: SI with OD 08/2018 APTU IPLOC, remote Has psych provider at [facility] Medical Evaluation Reviewed: Yes Personal & Social History: The patient lives with her son Desmond, who is also her healthcare proxy. Review of Systems Review of Systems Yes Unobtainable due to mental condition and Unobtainable due to mental status [facility] Medical History Atherosclerotic cardiovascular disease Atrial arrhythmia Bifascicular block Chronic diastolic (congestive) heart failure COPD (chronic obstructive pulmonary disease) COPD (chronic obstructive pulmonary disease) Enuresis Nonrheumatic aortic (valve) stenosis On home oxygen therapy DHEERAJ (obstructive sleep apnea) Respiratory failure with hypoxia and hypercapnia Thoracic aortic aneurysm (TAA) Urge incontinence Surgical History History of umbilical hernia repair Family History: father: michela Social History: per chart review: smokes 1PPD cigarettes Lives with son, who is also her HCP. Substance History: No hx ETOH or CAMRON in chart review. Trauma History: Unable to assess at this time. Diagnostics Vital Signs (24Hr): Vital Signs - 24 hr 09/14/21 12:00 09/14/21 13:00 09/14/21 14:00 Temperature 98.7 F Pulse Rate 127 H 122 H 94 Respiratory Rate 22 H 25 H 16 Blood Pressure 108/48 L 120/48 L 94/49 L Pulse Oximetry 89 L 96 94 09/14/21 15:00 09/14/21 15:11 09/14/21 15:54 Temperature 98.5 F Pulse Rate 104 H 105 H 86 Respiratory Rate 17 17 20 Blood Pressure 102/66 97/56 L Pulse Oximetry 94 93 09/14/21 17:00 09/14/21 18:00 09/14/21 19:00 Temperature Pulse Rate 82 95 83 Respiratory Rate 18 20 Blood Pressure 93/45 L 103/50 L 111/42 L Pulse Oximetry 94 93 94 09/14/21 19:21 09/14/21 20:00 09/14/21 21:00 Temperature 98.5 F Pulse Rate 96 93 102 H Respiratory Rate 24 H 18 Blood Pressure 92/51 L 95/50 L Pulse Oximetry 93 94 09/14/21 22:00 09/14/21 23:00 09/14/21 23:57 Temperature 8.5 F L Pulse Rate 107 H 126 H 134 H Respiratory Rate 20 28 H 19 Blood Pressure 90/58 L 98/48 L 98/48 L Pulse Oximetry 90 L 93 90 L 09/15/21 00:56 09/15/21 02:00 09/15/21 02:52 Temperature Pulse Rate 91 99 85 Respiratory Rate 17 28 H 22 H Blood Pressure 96/44 L 114/89 127/56 L Pulse Oximetry 99 96 98 09/15/21 03:55 09/15/21 04:59 09/15/21 05:51 Temperature Pulse Rate 78 61 87 Respiratory Rate 17 22 H 18 Blood Pressure 97/42 L 124/56 L 108/69 Pulse Oximetry 89 L 96 96 09/15/21 07:00 09/15/21 07:58 09/15/21 08:00 Temperature 97.9 F Pulse Rate 96 98 Respiratory Rate 28 H 20 19 Blood Pressure 127/61 114/63 Pulse Oximetry 94 95 09/15/21 08:07 09/15/21 08:17 09/15/21 09:00 Temperature Pulse Rate 103 H 94 Respiratory Rate 22 H 20 Blood Pressure 114/63 104/51 L Pulse Oximetry 92 09/15/21 10:00 09/15/21 11:00 09/15/21 11:16 Temperature Pulse Rate 81 102 H Respiratory Rate 28 H 17 33 H Blood Pressure 103/83 126/63 Pulse Oximetry 95 95 BMI result Body Mass Index 35.9 Labs Results: 09/15/21 05:34 09/15/21 13:08 Labs: Laboratory Results - last 48 hr 09/13/21 09/13/21 09/14/21 12:57 17:38 00:55 WBC 7.9 RBC 3.33 L Hgb 9.9 L Hct 32.7 L MCV 98.2 H MCH 29.7 MCHC 30.3 L RDW 13.1 Plt Count 161 D MPV 9.0 L Immature Gran % (Auto) 0.3 Neut % (Auto) 80.6 H Lymph % (Auto) 4.6 L Harper % (Auto) 13.6 H Eos % (Auto) 0.9 Baso % (Auto) 0.0 Lymph # (Auto) 0.4 L Harper # (Auto) 1.1 Eos # (Auto) 0.1 Baso # (Auto) 0.0 Abs Immat Gran (auto) 0.02 Absolute Neuts (auto) 6.4 Absolute Nucleated RBC 0.000 Nucleated RBC % (auto) 0.0 ESR VBG pH 7.32 7.36 VBG pCO2 65 63 VBG pO2 49 46 VBG HCO3 33 H 36 H VBG O2 Saturation 75.0 72.0 VBG Base Excess 6.0 9.1 Sodium Potassium Chloride Carbon Dioxide Anion Gap BUN Creatinine Estim Creat Clear Calc Estimated GFR POC Glucose Random Glucose Calcium Phosphorus Magnesium B-Natriuretic Peptide Vancomycin Trough 09/14/21 09/14/21 09/14/21 00:55 00:57 01:50 WBC RBC Hgb Hct MCV MCH MCHC RDW Plt Count MPV Immature Gran % (Auto) Neut % (Auto) Lymph % (Auto) Harper % (Auto) Eos % (Auto) Baso % (Auto) Lymph # (Auto) Harper # (Auto) Eos # (Auto) Baso # (Auto) Abs Immat Gran (auto) Absolute Neuts (auto) Absolute Nucleated RBC Nucleated RBC % (auto) ESR VBG pH 7.38 VBG pCO2 66 VBG pO2 47 VBG HCO3 39 H VBG O2 Saturation 75.0 VBG Base Excess 12.0 Sodium 148 H Potassium 3.5 Chloride 108 Carbon Dioxide 33 H Anion Gap 11 L BUN 27 H Creatinine 0.68 Estim Creat Clear Calc 97.8 Estimated GFR > 60 POC Glucose Random Glucose 102 Calcium 8.1 L D Phosphorus Magnesium B-Natriuretic Peptide Vancomycin Trough 12.6 09/14/21 09/14/21 09/14/21 05:34 05:34 05:34 WBC 8.9 RBC 3.34 L Hgb 9.7 L Hct 32.9 L MCV 98.5 H MCH 29.0 MCHC 29.5 L RDW 12.9 Plt Count 208 D MPV 10.1 Immature Gran % (Auto) 0.1 Neut % (Auto) 80.5 H Lymph % (Auto) 6.0 L Harper % (Auto) 12.1 H Eos % (Auto) 1.3 Baso % (Auto) 0.0 Lymph # (Auto) 0.5 L Harper # (Auto) 1.1 Eos # (Auto) 0.1 Baso # (Auto) 0.0 Abs Immat Gran (auto) 0.01 Absolute Neuts (auto) 7.2 Absolute Nucleated RBC 0.000 Nucleated RBC % (auto) 0.0 ESR VBG pH VBG pCO2 VBG pO2 VBG HCO3 VBG O2 Saturation VBG Base Excess Sodium 147 H Potassium 3.6 Chloride 109 H Carbon Dioxide 33 H Anion Gap 9 L BUN 26 H Creatinine 0.64 Estim Creat Clear Calc 104.0 Estimated GFR > 60 POC Glucose Random Glucose 95 Calcium 8.1 L Phosphorus 2.8 Magnesium 2.4 B-Natriuretic Peptide 2235 H Vancomycin Trough 09/14/21 09/14/21 09/14/21 05:34 07:10 08:46 WBC RBC Hgb Hct MCV MCH MCHC RDW Plt Count MPV Immature Gran % (Auto) Neut % (Auto) Lymph % (Auto) Harper % (Auto) Eos % (Auto) Baso % (Auto) Lymph # (Auto) Harper # (Auto) Eos # (Auto) Baso # (Auto) Abs Immat Gran (auto) Absolute Neuts (auto) Absolute Nucleated RBC Nucleated RBC % (auto) ESR 14 VBG pH 7.36 VBG pCO2 66 VBG pO2 47 VBG HCO3 38 H VBG O2 Saturation 75.0 VBG Base Excess 10.5 Sodium Potassium Chloride Carbon Dioxide Anion Gap BUN Creatinine Estim Creat Clear Calc Estimated GFR POC Glucose 91 Random Glucose Calcium Phosphorus Magnesium B-Natriuretic Peptide Vancomycin Trough 09/14/21 09/15/21 09/15/21 10:38 05:34 05:34 WBC 10.1 RBC 3.19 L Hgb 9.2 L Hct 31.9 L MCV 100.0 H MCH 28.8 MCHC 28.8 L RDW 13.0 Plt Count 202 MPV 9.7 Immature Gran % (Auto) 0.3 Neut % (Auto) 71.2 Lymph % (Auto) 13.7 L Harper % (Auto) 11.2 H Eos % (Auto) 3.6 Baso % (Auto) 0.0 Lymph # (Auto) 1.4 Harper # (Auto) 1.1 Eos # (Auto) 0.4 Baso # (Auto) 0.0 Abs Immat Gran (auto) 0.03 Absolute Neuts (auto) 7.2 Absolute Nucleated RBC 0.000 Nucleated RBC % (auto) 0.0 ESR VBG pH 7.42 VBG pCO2 55 VBG pO2 79 VBG HCO3 36 H VBG O2 Saturation 96.0 VBG Base Excess 10.1 Sodium 149 H Potassium 3.5 Chloride 111 H Carbon Dioxide 34 H Anion Gap 8 L BUN 20 H Creatinine 0.62 Estim Creat Clear Calc 107.4 Estimated GFR > 60 POC Glucose Random Glucose 108 Calcium 8.2 L Phosphorus 2.4 L Magnesium 2.4 B-Natriuretic Peptide Vancomycin Trough 09/15/21 09/15/21 05:34 05:48 WBC RBC Hgb Hct MCV MCH MCHC RDW Plt Count MPV Immature Gran % (Auto) Neut % (Auto) Lymph % (Auto) Harper % (Auto) Eos % (Auto) Baso % (Auto) Lymph # (Auto) Harper # (Auto) Eos # (Auto) Baso # (Auto) Abs Immat Gran (auto) Absolute Neuts (auto) Absolute Nucleated RBC Nucleated RBC % (auto) ESR VBG pH 7.35 VBG pCO2 70 VBG pO2 57 VBG HCO3 39 H VBG O2 Saturation 86.0 VBG Base Excess 11.3 Sodium Potassium Chloride Carbon Dioxide Anion Gap BUN Creatinine Estim Creat Clear Calc Estimated GFR POC Glucose Random Glucose Calcium Phosphorus Magnesium B-Natriuretic Peptide 2049 H Vancomycin Trough Imaging Radiology Impressions: ITS Impressions Chest X-Ray 09/09/21 21:55 IMPRESSION: Scattered bilateral opacities, most prominent on the right. Findings may represent an infectious or inflammatory process, however, asymmetrical pulmonary edema would also be within the differential. Clinical correlation is recommended. Abdomen/Pelvis CT 09/10/21 00:00 IMPRESSION: 1. Multifocal right lung consolidation, most extensive in the lower lobe, suspicious for pneumonia. 2. Mild diffuse groundglass opacity and interlobular septal thickening, suggesting a degree of edema. 3. Endotracheal tube tip at the level of the sheryl. 4. Few mildly enlarged mediastinal lymph nodes, which may be reactive. 5. Coronary artery calcifications. Correlation with cardiac risk factors is recommended. 6. Moderate to large volume of stool. Colonic diverticulosis without diverticulitis. This critical result was discussed with Dr. Cruz on 09/10/2021 1:46 AM, and it was ascertained that the content and urgency of the report was understood at the time of direct communication. Chest CT 09/10/21 00:00 IMPRESSION: 1. Multifocal right lung consolidation, most extensive in the lower lobe, suspicious for pneumonia. 2. Mild diffuse groundglass opacity and interlobular septal thickening, suggesting a degree of edema. 3. Endotracheal tube tip at the level of the sheryl. 4. Few mildly enlarged mediastinal lymph nodes, which may be reactive. 5. Coronary artery calcifications. Correlation with cardiac risk factors is recommended. 6. Moderate to large volume of stool. Colonic diverticulosis without diverticulitis. This critical result was discussed with Dr. Cruz on 09/10/2021 1:46 AM, and it was ascertained that the content and urgency of the report was understood at the time of direct communication. 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 No hemorrhagic conversion. No new abnormality. Chest CTA 09/10/21 01:40 IMPRESSION: 1. No central or proximal pulmonary embolus identified. Incomplete assessment of the distal vasculature due to respiratory motion artifact. 2. Dilated main pulmonary artery suggesting pulmonary hypertension. 3. Redemonstrated multifocal consolidations of the right lung, suspicious for pneumonia. 4. Suspect mild pulmonary edema. 5. Cardiomegaly. VTE: negative Chest X-Ray 09/10/21 04:10 IMPRESSION: Left IJ central line tip in the region of the cavoatrial junction. Redemonstrated mid to lower right lung opacity and findings suggesting congestion/interstitial edema. Chest X-Ray 09/12/21 09:57 IMPRESSION: Stable lines and catheters. Patchy bilateral opacities consistent interstitial infiltrate or edema is stable. Abdomen Ultrasound 09/13/21 09:55 IMPRESSION: Simple cyst upper pole right kidney. The gallbladder has been surgically removed. Mild intrahepatic ductal prominence. The pancreas is partially obscured by overlying gas. KUB X-Ray 09/13/21 10:09 IMPRESSION: Moderate distended colon with stool and gas and small bowel loops with gas likely secondary to significant constipation. Abdomen/Pelvis CT 09/13/21 11:30 IMPRESSION: 1. Large amount of stool in ascending and transverse colon extending into the distal ileum likely cause of low grade obstruction. Multiple prominent small bowel loops with air-fluid level are noted. The stomach is distended with air-fluid level. No free air seen. 2. Mid to distal midline abdominal wall hernia repair with mesh in place. There is small focal soft tissue lesion anterior to the mesh on axial image 62/3 and measures solid. 3. There is a small midline abdominal wall hernia superior to the mesh. Chest X-Ray 09/14/21 00:58 IMPRESSION: -Right base airspace disease and small right pleural effusion new compared with 09/12/2021 which could represent aspiration pneumonitis. -Unchanged mild left base airspace disease compared with 09/12/2021. -Stable cardiomegaly. Chest X-Ray 09/14/21 11:43 IMPRESSION: No significant change from prior exam at 0050 hours. Mental Status Exam Mental Status Exam Narrative: Unable to assess mental status fully at this time, due to patient appearing obtunded. Appears to be resting comfortably, no involuntary movements noted, motor activity calm. Patient Appearance: Fatigued and Appropriate Level of Consciousness: Obtunded Medications Medications Current Medications Albuterol/Ipratropium (Albuterol/Iprat 2.5/0.5mg 3 Ml Ampul.Neb) 3 ml INHALE RQ6H WHILE AWAKE [facility] Last Admin: 09/15/21 08:00 Dose: 3 ml Documented by: Enoxaparin Sodium (Enoxaparin Sodium 40 Mg/0.4 Ml Syringe) 40 mg SUBCUT Q24H [facility] Last Admin: 09/15/21 03:00 Dose: 40 mg Documented by: Phenylephrine HCl 20 mg/ (Sodium Chloride) 252 mls @ 0 mls/hr IVCONT .Q0M [facility]; Protocol Last Admin: 09/15/21 10:05 Dose: 0.5 mcg/kg/min, 41.2 mls/hr Documented by: Potassium Chloride/Dextrose () 20 meq in 1,000 mls @ 80 mls/hr IVCONT .[id number] [facility] Last Admin: 09/15/21 06:44 Dose: 80 mls/hr Documented by: Levothyroxine Sodium (Levothyroxine Sodium 150 Mcg Tablet) 150 mcg PO DAILY@0600 [facility] Last Admin: 09/15/21 06:30 Dose: 150 mcg Documented by: Metoprolol Tartrate (Metoprolol Tartrate 25 Mg Tablet) 25 mg PO BID [facility]; Protocol Last Admin: 09/15/21 08:07 Dose: 25 mg Documented by: Olanzapine (Olanzapine 10 Mg Vial) 2.5 mg IM TID PRN PRN Reason: agitation Pharmacy Consult (Consult Rx Vancomycin Dosing) 1 each MISCELLANE DAILY PRN PRN Reason: Consult order Prednisone (Prednisone 5 Mg Tablet) 35 mg PO DAILY [facility] Last Admin: 09/15/21 08:08 Dose: 35 mg Documented by: Allergies Allergies Allergy/AdvReac Type Severity Reaction Status Date / Time morphine [Morphine] Allergy Unknown UNKNOWN Verified 05/25/21 12:58 Assessment & Plan Assessment & Plan (1) Agitation: Status: Acute Code(s): R45.1 - Restlessness and agitation Assessment and Plan: Psychiatry consult was called in due to patient with being agitated, yelling and screaming at staff while awake. The when seen by this keno writer / runner she appeared appended, resting comfortably in bed, no involuntary movements noted. Unable to fully assess at this time. Patient has received 7.5 mg olanzapine at midnight, has appeared to be sleeping since. Has not been receiving her regular scheduled psychiatric medications due to being unable to take p.o. meds at this time. She possibly could be experiencing AMS and agitation due to withdrawal sx from vilazodone, or delirium, or a variety of other causes. A more thorough mental status exam should be completed once she is more alert. As per chart, patient has a longstanding history of psychiatric illness, mainly anxiety and major depressive disorder, severe. She also has a history of suicidal ideation, with a suspected overdose attempt in 2018. Assessment and Plan: 1. Olanzapine 2.5 mg t.i.d. p.r.n. IM for agitation. 2. Patient to be followed by Psychiatry, will need further mental status exam once she is more alert. I have discussed this case with my supervising psychiatrist today. I have shared my thoughts and recommendations directly with Dr. Kamini Proctor, while on unit. I have also shared this information with covering psychiatry provider for this evening, Jacqui Haq NP. Recommend contacting her via secure messaging system ([email or web address]) if patient becomes more alert this evening. Thank you for this consultation. We will continue to follow this patient along with you while she is hospitalized. If you have any questions or concerns, please do not hesitate to contact us. I spent minutes with the patient and/or on the patient floor today, greater than?50% of which was spent counseling/coordinating care.
--- NOTE | 2021-09-15 11:58 | MHC.SLORD ---
Speech Language Pathology Order Status: [employer]VIS[employer] attempted to see patient for bedside dysphagia evaluation. Patient is on BiPAP and would not wake to sternal rub/verbal stimuli. Patient is not appropriate at this time for PO trials. RN to notify SUPERVISOR [employer] of any changes this afternoon. Otherwise, plan to re-attempt evaluation tomorrow morning.
--- NOTE | 2021-09-15 12:45 | MHC.CM.PN ---
Pt continues her stay in ICU on BiPAP. Referred to [facility] where she had recently been: updates remitted. Pt not medically ready for PT eval at this time but will request order from MD when pt can participate. Call placed to pt's son to update on d/c plan.
[2021-09-15 13:13] LABS: VBG Base Excess 9.7 mmol/L; VBG HCO3 33 mmol/L (22-26); VBG pCO2 44 mmHg; VBG pH 7.49 (7.32-7.43); VBG pO2 38 mmHg
[2021-09-15 13:23] LABS: Venous Blood Gas Refer to POC result
[2021-09-15 13:31] LABS: Anion Gap 12 (12-20); Blood Urea Nitrogen 19 mg/dL (9-16); Calcium 8.5 mg/dL (8.4-10.2); Carbon Dioxide 28 mmol/L (22-29); Chloride 111 mmol/L (96-108); Creatinine Clr Calc Pharmacy 106.5; Estimated Glomerular Filt Rate > 60; Glucose Random 106 mg/dL (60-115); Potassium 4.3 mmol/L (3.3-5.1); Sodium 147 mmol/L (135-145)
--- NOTE | 2021-09-15 13:37 | P.PNCC_ITS ---
Subjective Subjective Date of Service: 09/15/21 Interval History: 71-year-old female with acute on chronic hypercarbic and hypoxic respiratory failure due to combination of COPD exacerbation along with a untreated sleep apnea Patient uncooperative and comes in with same recurring issue but probably has acute on chronic diastolic CHF it at least in part related to critical aortic stenosis and has a longstanding psychiatric history with major depression and suicide attempt and alternates between a state of of awaken is sin orientation x2 with agitation and refusal To cooperate has acute on chronic of obstipation with small bowel obstruction has had 2 disimpaction zit this point and definitely is decompressed and has not required the NG tube at this point but because of receiving Zyprexa she is very lethargic and pCO2 climbed to 70 so she is replaced on BiPAP now generating excellent volumes and reducing her pCO2 to 43 which is somewhat excessive maintaining excellent oxygen saturations and remains afebrile very well compensated adequate urine output on IV fluids and hopefully slowly resolving hypernatremia Blood cultures ordered are pending because of a a red inflamed CVP site and will await those results but up stopping the vancomycin which apparently she has had 4 days worth it to for an enterococcal urinary tract infection Critical Care Time (minutes): 45 Physical Exam Vital Signs: Vital Signs: Last Vital Signs Temp 99.5 F 09/15/21 12:00 Pulse 71 09/15/21 13:00 Resp 18 09/15/21 13:00 BP 114/63 09/15/21 13:00 Pulse Ox 94 09/15/21 13:00 Oxygen Flow Rate 4 09/09/21 22:09 BMI result Body Mass Index 35.9 Exam currently very very lethargic but arouses to very loud voice and his is doing very well on BiPAP with excellent blood gas compensation remains afebrile Skin is intact no acrocyanosis Lungs without accessory muscle or diaphragmatic Use cardiac exam with parvus and tardus carotid upstrokes and late peaking it systolic murmur Due to critical aortic stenosis abdomen more soft no organomegaly Objective Data Labs CBC & Chem 7: 09/15/21 05:34 09/15/21 13:08 Labs: Laboratory Results - last 24 hr 09/15/21 09/15/21 09/15/21 05:34 05:34 05:34 WBC 10.1 RBC 3.19 L Hgb 9.2 L Hct 31.9 L MCV 100.0 H MCH 28.8 MCHC 28.8 L RDW 13.0 Plt Count 202 MPV 9.7 Immature Gran % (Auto) 0.3 Neut % (Auto) 71.2 Lymph % (Auto) 13.7 L [place] % (Auto) 11.2 H Eos % (Auto) 3.6 Baso % (Auto) 0.0 Lymph # (Auto) 1.4 [place] # (Auto) 1.1 Eos # (Auto) 0.4 Baso # (Auto) 0.0 Abs Immat Gran (auto) 0.03 Absolute Neuts (auto) 7.2 Absolute Nucleated RBC 0.000 Nucleated RBC % (auto) 0.0 VBG pH VBG pCO2 VBG pO2 VBG HCO3 VBG O2 Saturation VBG Base Excess Sodium 149 H Potassium 3.5 Chloride 111 H Carbon Dioxide 34 H Anion Gap 8 L BUN 20 H Creatinine 0.62 Estim Creat Clear Calc 107.4 Estimated GFR > 60 Random Glucose 108 Calcium 8.2 L Phosphorus 2.4 L Magnesium 2.4 B-Natriuretic Peptide 2049 H 09/15/21 09/15/21 09/15/21 05:48 13:07 13:08 WBC RBC Hgb Hct MCV MCH MCHC RDW Plt Count MPV Immature Gran % (Auto) Neut % (Auto) Lymph % (Auto) [place] % (Auto) Eos % (Auto) Baso % (Auto) Lymph # (Auto) [place] # (Auto) Eos # (Auto) Baso # (Auto) Abs Immat Gran (auto) Absolute Neuts (auto) Absolute Nucleated RBC Nucleated RBC % (auto) VBG pH 7.35 7.49 H VBG pCO2 70 44 VBG pO2 57 38 VBG HCO3 39 H 33 H VBG O2 Saturation 86.0 70.0 VBG Base Excess 11.3 9.7 Sodium 147 H Potassium 4.3 D Chloride 111 H Carbon Dioxide 28 Anion Gap 12 BUN 19 H Creatinine 0.61 Estim Creat Clear Calc 106.5 Estimated GFR > 60 Random Glucose 106 Calcium 8.5 Phosphorus Magnesium B-Natriuretic Peptide Microbiology Microbiology Results: Microbiology 09/14/21 08:55 Blood - Venous Blood Culture - Preliminary No growth after 24 hours. 09/14/21 10:10 Catheter Tip - Cvp Catheter Tip Culture - Preliminary Culture in progress. 09/14/21 08:46 Blood - Venous Blood Culture - Preliminary Prelim: GPC Gram Stain only 09/09/21 22:41 Blood - Venous Blood Culture - Final No growth after 5 days. 09/12/21 05:20 Blood - Venous Blood Culture - Preliminary No growth after 48 hours. 09/12/21 05:32 Blood - Venous Blood Culture - Preliminary No growth after 48 hours. 09/09/21 22:41 Blood - Venous Blood Culture - Final Coag negative Staphylococcus 09/10/21 05:00 Sputum - Suctioned Gram Stain - Final 09/10/21 05:00 Sputum - Suctioned Sputum Culture - Final No growth. 09/10/21 00:00 Urine Catheterized - Stanford Catheter Urine Culture - Final Enterococcus faecalis Progress Note: A&P Assessment and plan (1) Hypernatremia: Status: Acute (2) Atrial tachycardia: Status: Acute (3) Acute respiratory failure: Status: Acute (4) CHF exacerbation: Status: Acute (5) COPD exacerbation: Status: Acute (6) Altered mental state: Status: Acute (7) Cerebral infarction: Status: Acute (8) Thoracic aortic aneurysm (TAA): Status: Acute (9) Recurrent incisional hernia: Status: Acute (10) Acute on chronic diastolic (congestive) heart failure: Status: Acute (11) Acute on chronic respiratory failure with hypoxia and hypercapnia: Status: Acute (12) Acute metabolic encephalopathy: Status: Acute (13) Respiratory failure with hypoxia and hypercapnia: Status: Acute (14) COPD (chronic obstructive pulmonary disease): Status: Acute (15) Chronic diastolic (congestive) heart failure: Status: Acute (16) Atrial arrhythmia: Status: Acute (17) DHEERAJ (obstructive sleep apnea): Status: Acute (18) On home oxygen therapy: Status: Acute (19) Bifascicular block: Status: Acute (20) Nonrheumatic aortic (valve) stenosis: Status: Acute Assessment and Plan: So the plan of may have the psychiatric consult is to continue but low-dose I practice at 2.5 mg q.8 hourly p.r.n. for agitation swallow evaluation when she awakens and hopefully be cooperative and then eventually out of bed and trying v mandeep hard to restrict her to nocturnal use of BiPAP only and then possible qualification for home device if she would cooperate with its use Quality Stroke Does the patient have a stroke diagnosis?: No VTE Prior VTE?: No VTE Risk Level:: Medical - moderate - high VTE Device Contraindication: N/A - Device Ordered VTE Drug Contraindication: N/A - Med Ordered
[2021-09-15 13:46] LABS: Vancomycin Trough 20.1 mcg/mL (10.0-20.0)
--- NOTE | 2021-09-15 14:47 | MHC.SL.SWA ---
Speech Pathologist Impression: Risk of Aspiration Oralpharyngeal Dysphagia Risk of Aspiration Due to: Dysphasia Diet Status: Liquid Consistency and Strategies for Safe Swallow: Liquid Intake Recommendation: [place] Thick Liquid Intake Strategies: Small Sips Liquids by Teaspoon Only Solid Food Consistency: Dietary Recommendations: Pureed (NDD1) Additional Modifications to Solid Foods: Oral Medication Intake: Crushed with Puree Compensatory Strategies and Precautions to be Taken for Safe Swallow: Pt sitting at 90, Liquid by Tsp, Alternate liquid and solid, monitor for neglect of food/swallow, monitor for signs of aspiration. Supervision While Eating and Drinking for Safe Swallow: Total Supervision (1:1) Foods to Avoid: Swallowing Recommended Treatments: Recommendation for Speech: Inpatient Speech Therapy Comment: Pt presents with intermittent moderate delay initiating swallow, poor attention at times to eating and swallowing, and is at risk for aspiration. Clinical signs of aspiration noted on thin liquids. Recommend starting Pt on NECTAR THICK liquids by spoon, Pureed (NDD1) Foods, with Pills crushed in puree. Recommendations sent by secure text to Nursing, Business Analyst Manager and Dining, with request Nursing request order from MD who is not on Text network. Frequency/Duration: Date Range for Service Req: Timeline to reassess: Gin Feeder Clinican/Clinical Fellow: No Supervisory Statement: I have reviewed and agree with the student/clinical fellow's documentation: N/A Speech Language Pathologist: Tamiko Guzman M.A., CCC-CLINICAL PROGRAM MANAGER
[2021-09-15] MEDS: Midazolam HCl/PF 2 MG/2 ML VIAL IVPUSH (17:50)
--- NOTE | 2021-09-15 18:01 | PC.NURSE ---
Patient inconsolable after two IM doses of Zyprexa, ordered TID prn. Desaturating on 5L [place]. Increased to 8L. HR climbing to 160s. Refusing BiPAP. Had taken a few bites of food for dinner and drank some liquids, but SpO2 dropped to 58% on 8L Benitez. Dr. Silva notified via telephone. 2mg IVP Versed ordered and given at 1755 with good effect. Patient settled, now sedated but tolerating BiPAP and SpO2+HR improved.
[2021-09-16] VITALS (39 sets, daily range): BP systolic 83–154; BP diastolic 42–87; PULSE 42–140; RESP 16–29; TEMP 34.6–37.3; O2SAT 91–100; BMI 36.7
--- NOTE | 2021-09-16 | ECG_ITS ---
Test Reason : svt Blood Pressure : / mmHG Vent. Rate : 112 BPM Atrial Rate : 112 BPM P-R Int : 158 ms QRS Dur : 142 ms QT Int : 364 ms P-R-T Axes : 071 -71 005 degrees QTc Int : 496 ms Sinus tachycardia with Premature atrial complexes Left axis deviation Right bundle branch block Inferior infarct (cited on or before 16-SEP-2021) Abnormal ECG When compared with ECG of 09-SEP-2021 23:49, T wave inversion more evident in Anterior leads Referred By: Brisa Walters Electronically Signed By:EARLINE MAURICIO
[2021-09-16] MEDS: OLANZapine 10 MG VIAL 2.5 MG IM (00:49)
--- NOTE | 2021-09-16 01:23 | PC.NURSE ---
Pt woke up, became agitated and removed bipap facemask. Nasal cannula appied at 6L. Pt was maintaining sat > 90% but became more agitated. Heart rate went up to 150's and pt became minimally responsive. Liliya MUNOZ called to bedside. Amiodarone 150 mg IV given. 12 lead EKG done. Pacer pads applied and backboard placed for impending CODE BLUE. Bp 127/70. Heart rate came down to 90-104. Portable chest xray done and reviewed by Liliya MUNOZ. Labs ordered and drawn. Bipap reapplied and pt improved. Monitor continues SR, rate 90-100 with BBB and freq PAC's noted. O2 sat currently 96% on 45% oxygen via bipap, avaps settings.
[2021-09-16 01:33] LABS: MANUAL DIFF FLAG NO
[2021-09-16 01:35] LABS: VBG Base Excess 9.2 mmol/L; VBG HCO3 38 mmol/L (22-26); VBG pCO2 74 mmHg; VBG pH 7.31 (7.32-7.43); VBG pO2 45 mmHg
[2021-09-16 01:35] LABS: Basophils Percent Auto 0.2 % (0-2); Eosinophils Absolute Auto 0.4 X10*3/uL (0.0-0.4); Eosinophils Percent Auto 3.6 % (0-4); Hemoglobin 10.5 g/dl (12.0-16.0); Imm Gran Abs Auto 0.11 X10*3/uL (0.00-0.03); Imm Gran Pct Auto 0.9 % (0.0-0.4); Lymphocytes Absolute Auto 1.5 X10*3/uL (1.2-4.9); Lymphocytes Percent Auto 12.9 % (20-40); Mean Corpuscular HGB Conc 29.2 g/dl (31.0-35.0); Mean Corpuscular Hemoglobin 29.2 pg (27.0-33.0); Mean Corpuscular Volume 100.3 fL (80.0-98.0); Mean Platelet Volume 9.7 fL (9.4-12.3); Monocytes Percent Auto 8.9 % (2-11); Neutrophils Absolute Auto 8.5 x10*3/uL (2.0-8.3); Neutrophils Percent Auto 73.5 % (45-73); Platelet Count 223 X10*3/uL (160-400); Red Blood Count 3.59 X10*6/uL (4.20-5.50); Red Cell Distribution Width 13.2 % (11.0-16.0); White Blood Count 11.6 X10*3/uL (4.8-10.8)
[2021-09-16 01:46] LABS: Venous Blood Gas Refer to POC result
[2021-09-16 01:51] LABS: Anion Gap 11 (12-20); Blood Urea Nitrogen 17 mg/dL (9-16); Calcium 8.7 mg/dL (8.4-10.2); Carbon Dioxide 30 mmol/L (22-29); Chloride 109 mmol/L (96-108); Creatinine Clr Calc Pharmacy 98.4; Estimated Glomerular Filt Rate > 60; Glucose Random 125 mg/dL (60-115); Magnesium 2.4 mg/dL (1.6-2.6); Phosphorus 3.3 mg/dL (2.7-4.5); Potassium 4.4 mmol/L (3.3-5.1); Sodium 146 mmol/L (135-145)
[2021-09-16 01:55] LABS: B Type Natriuretic Peptide 1781 pg/mL (<100); Troponin-I High Sensitivity 48.6 ng/L (<3.5-17.0)
[2021-09-16] MEDS: Enoxaparin Sodium 40 MG/0.4 ML SYRINGE SUBCUT (02:28)
--- NOTE | 2021-09-16 03:19 | PC.NURSE ---
Pt on bipap and tolerating it. She is mostly sleeping but occassionally wakes up and tries to take mask off. Telesitter in room. Monitor shows SR, 80-90;s, freq pac's and BBB noted. Bp 136/57.
[2021-09-16] MEDS: Phenylephrine HCL 20 MG in 0.9 % Sodium Chloride 250 ML 41.2 MG IVCONT (03:40)
[2021-09-16 05:51] LABS: MANUAL DIFF FLAG NO
[2021-09-16 05:55] LABS: Basophils Percent Auto 0.1 % (0-2); Eosinophils Absolute Auto 0.4 X10*3/uL (0.0-0.4); Eosinophils Percent Auto 3.2 % (0-4); Hematocrit 34.1 % (37.0-47.0); Hemoglobin 9.8 g/dl (12.0-16.0); Imm Gran Abs Auto 0.09 X10*3/uL (0.00-0.03); Imm Gran Pct Auto 0.7 % (0.0-0.4); Lymphocytes Absolute Auto 1.5 X10*3/uL (1.2-4.9); Lymphocytes Percent Auto 11.2 % (20-40); Mean Corpuscular HGB Conc 28.7 g/dl (31.0-35.0); Mean Corpuscular Hemoglobin 28.7 pg (27.0-33.0); Mean Corpuscular Volume 99.7 fL (80.0-98.0); Monocytes Absolute Auto 1.4 X10*3/uL (0.1-1.2); Monocytes Percent Auto 10.4 % (2-11); Neutrophils Absolute Auto 9.7 x10*3/uL (2.0-8.3); Neutrophils Percent Auto 74.4 % (45-73); Platelet Count 205 X10*3/uL (160-400); Red Blood Count 3.42 X10*6/uL (4.20-5.50); Red Cell Distribution Width 13.2 % (11.0-16.0)
[2021-09-16 06:11] LABS: Anion Gap 9 (12-20); Blood Urea Nitrogen 16 mg/dL (9-16); Calcium 8.6 mg/dL (8.4-10.2); Carbon Dioxide 33 mmol/L (22-29); Chloride 107 mmol/L (96-108); Creatinine Clr Calc Pharmacy 103.1; Estimated Glomerular Filt Rate > 60; Glucose Random 117 mg/dL (60-115); Magnesium 2.3 mg/dL (1.6-2.6); Phosphorus 2.9 mg/dL (2.7-4.5); Potassium 4.2 mmol/L (3.3-5.1); Sodium 145 mmol/L (135-145)
[2021-09-16] MEDS: OLANZapine 10 MG VIAL 5 MG IM (06:15)
[2021-09-16 06:16] LABS: B Type Natriuretic Peptide 1767 pg/mL (<100)
--- NOTE | 2021-09-16 06:27 | PC.NURSE ---
Pt became restless and agitated pulling off bipap mask. Heart rate up to 120's. Wiggling around in the bed and able to infiltrate both IV's. Resp distress noted. Bipap on. Had to restrain pt. Dr Proctor at bedside and initiating procedure for insertion of central line at this time.
[2021-09-16] MEDS: propofoL 200 MG/20 ML VIAL 100 MG IVPUSH (07:00)
[2021-09-16] MEDS: Rocuronium Bromide 50 MG/5 ML VIAL IVPUSH (07:02)
[2021-09-16] MEDS: propofoL 1,000 MG/100 ML VIAL 31.92 MG IVCONT (07:03)
--- NOTE | 2021-09-16 07:38 | PC.NURSE ---
EMERGENT INTUBATION AT 0703. 7.0/ AC 16/400/8/30% TOTAL OF 70 MG IVP PROPOFOL, ROCURONIUM 50 MG IVP. PROPOFOL GTT STARTED AT 50 MCG/KG/MIN. CXR OBTAINED. RESTRAINTS REMAIN IN PLACE FOR SAFETY.
[2021-09-16] MEDS: KCl 20 mEq in 5 % Dextrose 20 MEQ/1,000 ML IV.SOLN 80 MEQ IVCONT ×2 (07:49→21:15)
[2021-09-16] MEDS: Albuterol/Iprat 2.5/0.5MG 3 ML AMPUL.NEB INHALE ×3 (08:41→19:39)
--- NOTE | 2021-09-16 09:18 | MHC.CLN ---
PT IS CURRENTLY INTUBATED AND SEDATED WILL CHANGE DIET TO NPO IF TF NEEDED; RECOMMEND PROMOTE AT MAX GOAL RATE 50ML/HR TO PROVIDE 1200KCALS (1790KCALS WITH SEDATION; 23KCALS/KG), 75G PROTEIN, 1007CC FREE WATER FROM FORMULA START TF AT 20ML/HR AND INCREASE BY 10ML UNTIL MAX GOAL IS ACHIEVED MONITOR TOLERANCE, RESIDUALS AND LYTES SEE ALSO CLINICAL NUTRITION ASSESSMENT
[2021-09-16 10:00] LABS: VBG Base Excess 11.1 mmol/L; VBG HCO3 34 mmol/L (22-26); VBG pCO2 42 mmHg; VBG pH 7.52 (7.32-7.43); VBG pO2 36 mmHg
[2021-09-16] MEDS: propofoL 1,000 MG/100 ML VIAL 22.34 MG IVCONT ×2 (10:35→14:50)
[2021-09-16] MEDS: vancomycin HCL 1,000 MG in 0.9 % Sodium Chloride 250 ML 270 MG IV ×2 (10:45→21:15)
[2021-09-16 11:34] LABS: Venous Blood Gas Refer to POC result
[2021-09-16] MEDS: Phenylephrine HCL 20 MG in 0.9 % Sodium Chloride 250 ML 32.96 MG IVCONT (11:44)
[2021-09-16] MEDS: Metoprolol Tartrate 25 MG TABLET PO (11:51)
[2021-09-16] MEDS: predniSONE 5 MG TABLET 35 MG PO (11:52)
--- NOTE | 2021-09-16 13:10 | PM.CCPN ---
Subjective Subjective Date of Service: 09/16/21 Interval History: 71-year-old female with longstanding smoking related COPD and has had multiple presentations with acute on chronic hypercarbic and hypoxic respiratory failure intubated a good number of times and now today for the 3rd time during this admission she had a lot of swelling and redness of the although glottic tissue but we are able to obtain our airway without complication and this was all because she was back in respiratory extremis with diminished mental status presumably of course hypercarbic despite the noninvasive ventilation that was on her but she was becoming somewhat combative and the airway was difficult to maintain and she was using accessory muscles a lot of diaphragmatic effort year with wheezing marked neck vein distension and with the underlying critically significant aortic in a stenosis and she was also becoming wildly dysrhythmic with rates as high as 180 clearly exacerbating the hemodynamics so without IV access being there I quickly obtained IV access via the right internal jugular vein placing a central line which was in the right atrium on chest x-ray without complication and CVP reading Is pending I was then able to give her propofol and using glide scope guidance intubated her with 2 position being excellent the OG tube placement in the stomach also look good and with that she dramatically improved after being placed on the ventilator and then I did a bedside echo after that the no to corroborate that wall motion was still globally preserved she concentrically hypertrophied with a critical gradient across the aortic valve with a velocity of about 4.3 m/sec for an approximate pressure gradient of about 80 mmHg across the valve and instantly the dysrhythmia disappeared and she was predominantly normal sinus rhythm rate in the 70s with occasional APCs Critical Care Time (minutes): 60 Physical Exam Vital Signs: Vital Signs: Last Vital Signs Temp 97.0 F 09/16/21 08:00 Pulse 78 09/16/21 12:00 Resp 16 09/16/21 12:00 BP 137/83 09/16/21 12:00 Pulse Ox 97 09/16/21 12:00 Oxygen Flow Rate 4 09/09/21 22:09 BMI result Body Mass Index 36.7 Sedated and intubated And appearing to be comfortable no neck vein distention and bedside echo as described above Chest by chest x-ray markedly improved no evidence of interstitial edema reversal of all atelectasis no distinct infiltrate Abdomen is benign soft no organomegaly The blood culture came back positive for coagulase-negative Staph and so did the catheter tip so I believe that this is Staph bacteremia and along with the continued need to treat the enterococcal UTI on continuing vancomycin Objective Data Labs CBC & Chem 7: 09/16/21 05:33 09/16/21 05:33 Labs: Laboratory Results - last 24 hr 09/15/21 09/15/21 09/15/21 13:07 13:08 13:08 WBC RBC Hgb Hct MCV MCH MCHC RDW Plt Count MPV Immature Gran % (Auto) Neut % (Auto) Lymph % (Auto) [place] % (Auto) Eos % (Auto) Baso % (Auto) Lymph # (Auto) [place] # (Auto) Eos # (Auto) Baso # (Auto) Abs Immat Gran (auto) Absolute Neuts (auto) Absolute Nucleated RBC Nucleated RBC % (auto) VBG pH 7.49 H VBG pCO2 44 VBG pO2 38 VBG HCO3 33 H VBG O2 Saturation 70.0 VBG Base Excess 9.7 Sodium 147 H Potassium 4.3 D Chloride 111 H Carbon Dioxide 28 Anion Gap 12 BUN 19 H Creatinine 0.61 Estim Creat Clear Calc 106.5 Estimated GFR > 60 Random Glucose 106 Calcium 8.5 Phosphorus Magnesium Troponin I High Sens B-Natriuretic Peptide Vancomycin Trough 20.1 H 09/16/21 09/16/21 09/16/21 01:26 01:26 01:26 WBC 11.6 H RBC 3.59 L Hgb 10.5 L Hct 36.0 L MCV 100.3 H MCH 29.2 MCHC 29.2 L RDW 13.2 Plt Count 223 MPV 9.7 Immature Gran % (Auto) 0.9 H Neut % (Auto) 73.5 H Lymph % (Auto) 12.9 L [place] % (Auto) 8.9 Eos % (Auto) 3.6 Baso % (Auto) 0.2 Lymph # (Auto) 1.5 [place] # (Auto) 1.0 Eos # (Auto) 0.4 Baso # (Auto) 0.0 Abs Immat Gran (auto) 0.11 H Absolute Neuts (auto) 8.5 H Absolute Nucleated RBC 0.000 Nucleated RBC % (auto) 0.0 VBG pH VBG pCO2 VBG pO2 VBG HCO3 VBG O2 Saturation VBG Base Excess Sodium 146 H Potassium 4.4 Chloride 109 H Carbon Dioxide 30 H Anion Gap 11 L BUN 17 H Creatinine 0.66 Estim Creat Clear Calc 98.4 Estimated GFR > 60 Random Glucose 125 H Calcium 8.7 Phosphorus 3.3 Magnesium 2.4 Troponin I High Sens B-Natriuretic Peptide 1781 H Vancomycin Trough 09/16/21 09/16/21 09/16/21 01:26 01:28 05:33 WBC RBC Hgb Hct MCV MCH MCHC RDW Plt Count MPV Immature Gran % (Auto) Neut % (Auto) Lymph % (Auto) [place] % (Auto) Eos % (Auto) Baso % (Auto) Lymph # (Auto) [place] # (Auto) Eos # (Auto) Baso # (Auto) Abs Immat Gran (auto) Absolute Neuts (auto) Absolute Nucleated RBC Nucleated RBC % (auto) VBG pH 7.31 L VBG pCO2 74 VBG pO2 45 VBG HCO3 38 H VBG O2 Saturation 71.0 VBG Base Excess 9.2 Sodium 145 Potassium 4.2 Chloride 107 Carbon Dioxide 33 H Anion Gap 9 L BUN 16 Creatinine 0.63 Estim Creat Clear Calc 103.1 Estimated GFR > 60 Random Glucose 117 H Calcium 8.6 Phosphorus 2.9 Magnesium 2.3 Troponin I High Sens 48.6 H B-Natriuretic Peptide Vancomycin Trough 09/16/21 09/16/21 09/16/21 05:33 05:33 09:53 WBC 13.0 H RBC 3.42 L Hgb 9.8 L Hct 34.1 L MCV 99.7 H MCH 28.7 MCHC 28.7 L RDW 13.2 Plt Count 205 MPV 10.0 Immature Gran % (Auto) 0.7 H Neut % (Auto) 74.4 H Lymph % (Auto) 11.2 L [place] % (Auto) 10.4 Eos % (Auto) 3.2 Baso % (Auto) 0.1 Lymph # (Auto) 1.5 [place] # (Auto) 1.4 H Eos # (Auto) 0.4 Baso # (Auto) 0.0 Abs Immat Gran (auto) 0.09 H Absolute Neuts (auto) 9.7 H Absolute Nucleated RBC 0.000 Nucleated RBC % (auto) 0.0 VBG pH 7.52 H VBG pCO2 42 VBG pO2 36 VBG HCO3 34 H VBG O2 Saturation 66.0 VBG Base Excess 11.1 Sodium Potassium Chloride Carbon Dioxide Anion Gap BUN Creatinine Estim Creat Clear Calc Estimated GFR Random Glucose Calcium Phosphorus Magnesium Troponin I High Sens B-Natriuretic Peptide 1767 H Vancomycin Trough Microbiology Microbiology Results: Microbiology 09/14/21 08:55 Blood - Venous Blood Culture - Preliminary No growth after 48 hours. 09/14/21 10:10 Catheter Tip - Cvp Catheter Tip Culture - Preliminary Coag negative Staphylococcus 09/14/21 08:46 Blood - Venous Blood Culture - Final Coag negative Staphylococcus 09/09/21 22:41 Blood - Venous Blood Culture - Final No growth after 5 days. 09/12/21 05:20 Blood - Venous Blood Culture - Preliminary No growth after 48 hours. 09/12/21 05:32 Blood - Venous Blood Culture - Preliminary No growth after 48 hours. 09/09/21 22:41 Blood - Venous Blood Culture - Final Coag negative Staphylococcus 09/10/21 05:00 Sputum - Suctioned Gram Stain - Final 09/10/21 05:00 Sputum - Suctioned Sputum Culture - Final No growth. 09/10/21 00:00 Urine Catheterized - [facility] Catheter Urine Culture - Final Enterococcus faecalis Progress Note: A&P Assessment and plan (1) Agitation: Status: Acute (2) Hypernatremia: Status: Acute (3) Atrial tachycardia: Status: Acute (4) Acute respiratory failure: Status: Acute (5) CHF exacerbation: Status: Acute (6) COPD exacerbation: Status: Acute (7) Altered mental state: Status: Acute (8) Cerebral infarction: Status: Acute (9) Acute CVA (cerebrovascular accident): Status: Acute (10) Fall: Status: Acute (11) Thoracic aortic aneurysm (TAA): Status: Acute (12) Recurrent incisional hernia: Status: Acute (13) Acute on chronic diastolic (congestive) heart failure: Status: Acute (14) Acute on chronic respiratory failure with hypoxia and hypercapnia: Status: Acute (15) Acute CHF: Status: Acute (16) Acute metabolic encephalopathy: Status: Acute (17) CAP (community acquired pneumonia): Status: Acute (18) Enuresis: Status: Acute (19) Urge incontinence: Status: Acute (20) Respiratory failure with hypoxia and hypercapnia: Status: Acute (21) COPD (chronic obstructive pulmonary disease): Status: Acute (22) Chronic diastolic (congestive) heart failure: Status: Acute (23) Atrial arrhythmia: Status: Acute (24) DHEERAJ (obstructive sleep apnea): Status: Acute (25) On home oxygen therapy: Status: Acute (26) Bifascicular block: Status: Acute (27) Atherosclerotic cardiovascular disease: Status: Acute (28) Nonrheumatic aortic (valve) stenosis: Status: Acute Assessment and Plan: Plan is to continue the IV vancomycin obtain is CVP so we could covering fluids and probably start a diet via the OG tube and I have discussed the plan of potential tracheostomy with the son who was the principal in the family will discuss with his other siblings Quality Stroke Does the patient have a stroke diagnosis?: No VTE Prior VTE?: No VTE Risk Level:: Medical - moderate - high VTE Device Contraindication: N/A - Device Ordered VTE Drug Contraindication: N/A - Med Ordered
--- NOTE | 2021-09-16 13:18 | MHC.SLORD ---
Speech Language Pathology Order Status: Patient was seen for bedside dysphagia evaluation yesterday afternoon and was recommended pureed (NDD1) solids and nectar thick liquids by spoon only, pills crushed in puree. SUBSTANCE ADDICTION COORDINATOR reviewed printmaker- Reportedly patient was desatting on 5L [place], which was then increased to 8L. Patient ate few bites of dinner and drank some liquids. SpO2 dropped to 58%. RN notified MD. Patient was then placed back on BiPAP. She was emergently intubated this morning at 7:03am. Chest x-ray on 09/16/21 showed, catheter tip overlying the right atrium/ There is no pneumothorax/ Persistent opacities bilaterally with increasing retrocardiac opacity which may be consistent with infiltrate or atelectasis. Patient is on vent. Not appropriate for PO trials. SUBSTANCE ADDICTION COORDINATOR will continue to follow.
--- NOTE | 2021-09-16 13:21 | W.PM.CCHP ---
Procedures Date of Service Date of Service: 09/16/21 Intubation Intubation Comments: Patient in respiratory extremis with hypoxemic respiratory failure and with the use of glide scope for ultrasound guidance and a 7. Endotracheal tube intubation went without complication good visualization of the vocal cords and there was a lot of surrounding glottic tissue that was swollen and red and would not be surprising for were not partially obstructing Good end-tidal CO2 response and on chest x-ray well above the sheryl without any barotrauma Consent for Procedure: Emergent-no informed consent obtained Time out performed: Yes Sedative: propofol Paralytic: rocuronium Laryngoscope: fiber optic video scope ET tube size: 7 ET tube uncuffed: No Tube secured depth (cm): 22 Tube placement confirmation: visualized tube passing through cords, equal breath sounds bilaterally, no breath sounds over epigastrium and confirmation by capnometry Patient tolerated procedure: well and no complications Intubation complications: none
--- NOTE | 2021-09-16 13:26 | W.PM.CCHP ---
Procedures Date of Service Date of Service: 09/16/21 Central Line Placement A quick time-out was made for clarification and proper patient identification, patient was positioned, landmarks were identified, US used to locate a large compressible IJ. The left neck was widely prepped and draped in a full sterile fashion. Ultrasound was used to locate again the left IJ, the vein was cannulated on the 1st pass with an 18 gauge thin needle, dark nonpulsatile blood return was obtained. The wire was threaded, a small incision was made at its base and dilator inserted. A triple-lumen central venous catheter was advanced into the vein up to the hub without problems, wired was removed. Ports had good blood return and flushed x3. The catheter was secured with 3 sutures at 3 sites, a Biopatch and dry sterile dressing were applied. Post procedure chest x-ray showed the line to be in good position without pneumothorax. No bleeding or complications noted.: Central Line Comments: Today on 09/16 2 days after I removed the left internal jugular line because of some red swelling at the wound site and and today's demonstrated catheter tip growth of coagulase-negative Staph matching the blood culture and having no other IV access utilizing ultrasound guidance a 20 cm triple-lumen central venous line was placed by the right internal jugular vein without Complication after sterile preparation and draping and gained easy entry to the internal jugular vein confirming position of the guidewire which was placed a retrograde with Seldinger technique over which the 20 cm triple-lumen catheter was then threaded with confirmed tip in the right atrium and awaiting CVP measurement Consent for Procedure: Emergent-no informed consent obtained Time out performed: Yes Sterile Technique Used: Yes Patient placed on monitor/pulse ox: Yes MD prep: mask, gown and gloves Central line prep: Chlorhexidine scrub Local anesthesia used: lidocaine 1% Ultrasound used for placement: Yes Central line lumen inserted: double Post procedure: sutured in place, good blood return, all ports aspirated, flushed, capped and sterile dressing applied Post procedure x-ray: tip of catheter in good position and no pneumothorax seen Patient tolerated procedure: well and no complications Complications: none
--- NOTE | 2021-09-16 13:52 | MHC.CM.PN ---
Pt required emergent intubation early this am: son aware and has spoken with MD who did discuss the possibility of tracheostomy placement at some point d/t continued respiratory impairment that has a cardiac component. CM will need to have a conversation with the family about placement should pt require a trach - at this time, all new trachs (<30 days old) [facility]. Pt had initially been re-referred to [facility] after a short stay at home following d/c from SNF. At this time, it appears that her post [facility] needs may exceed [facility] capabilities - especially from a respiratory management perspective. CM to follow for changes in d/c plan.
--- NOTE | 2021-09-16 14:00 | CA_ITS ---
Transthoracic Echocardiogram Patient (Last, First, Middle): Amanda Maradiaga L Gender: Female Date of : 1950 Age: 71 Procedure Date: 09/16/2021 Procedure Type: Transthoracic Echocardiogram Location: ICU Height: 170. cm Weight: 106. kg BSA: 2.16 m2 Heart Rate: bpm BP: 118 / 52 mmHg Grading Supervisor: Referring MD: Kamini Proctor MD Symptoms: Limited echo for velocities across aortic valve to rule out Study Quality: Good ECG Rhythm: Sinus Conclusions: - The left ventricular systolic function is mildly decreased. The calculated ejection fraction is 50% by biplane method. LVEF by 3D 51%. - Moderately increased right ventricular cavity size. - There is moderate aortic valve stenosis. Findings Left Ventricle Normal left ventricular cavity size. The left ventricular systolic function is mildly decreased. The calculated ejection fraction is 50% by biplane method. LVEF by 3D 51%. Right Ventricle Moderately increased right ventricular cavity size. There is normal right ventricular systolic function. Aortic Valve There is moderate calcification of the aortic valve. There is moderate aortic valve stenosis. The peak aortic velocity is 3.14 m/s with a calculated peak gradient of 39 mmHg. The mean gradient is 23 mmHg. The aortic valve area is 1.04 cm2. There is mild aortic valve regurgitation. Dimensionless index 0.3. Stroke volume index 35ml. Prior Study Comparison Changes noted compared to prior study dated: 09/12/2021. See comments on aortic valve. Measurements 2D Linear Measurements LVOT Diam: 2.10 3.0+(-)1.3 cm 2D Systolic Function EF 4C: 47.90 >55% EF 2C: 50.40 >55% EF BiP: 50.00 >55% Aortic Valve AoV Pk Trey: 3.14 AoV Mn Trey: 2.27 AoV VTI: 0.71 AoV Pk Grad: 39.00 Aov Mn Grad: 23.00 AMBAR Cont.VTI: 1.04 LVOT LVOT Pk Trey: 0.92 LVOT Mn Trey: 0.61 LVOT VTI: 0.22 LVOT Pk Grad: 3.00 LVOT Mn Grad: 2.00 LVOT Diam: 2.10 LVOT Area: 3.46 Right Ventricle TAPSE (mm): 25.00 TVS' Trey: 9.00 Updated in Other Vendor System with Status of Final Koby Camilo MD electronically signed on 09/17/2021 10:57:11 AM with status of Final
--- NOTE | 2021-09-16 14:44 | PM.PNCARD ---
Subjective Subjective Date of Service: 09/16/21 Interval history: Due to respiratory distress, she is now intubated Review of Systems Review of Systems Unable to obtain due to mental status Physical Exam Vital Signs: Last Vital Signs Temp 97.0 F 09/16/21 08:00 Pulse 59 09/16/21 14:00 Resp 16 09/16/21 14:00 BP 119/60 09/16/21 14:00 Pulse Ox 95 09/16/21 14:00 Oxygen Flow Rate 4 09/09/21 22:09 BMI result Body Mass Index 36.7 Const Other: Intubated [facility] Other: Unremarkable Neck Neck: Yes normal visual inspection Chest Chest palpation & inspection: normal inspection of the chest Resp Auscultation: diminished lung sounds Cardio Jugular venous distension: no JVD Palpation: normal PMI Heart sounds: S1 normal heart sound present, S2 normal heart sound present, no gallops, Murmur heart sound present systolic and no rubs GI Palpation (GI): Soft to palpation Back/Spine/Pelvis Other: unremarkable Skin General skin exam: no rashes or lesions noted Neuro Other: Intubated Cranial nerves: Yes Other cranial nerve findings present Extrem General: Yes no clubbing, cyanosis or edema Psych Mental Status: other Objective Labs and Meds Result diagrams: 09/16/21 05:33 09/16/21 05:33 Lab results: Laboratory Results - last 24 hr 09/16/21 09/16/21 09/16/21 01:26 01:26 01:26 WBC 11.6 H RBC 3.59 L Hgb 10.5 L Hct 36.0 L MCV 100.3 H MCH 29.2 MCHC 29.2 L RDW 13.2 Plt Count 223 MPV 9.7 Immature Gran % (Auto) 0.9 H Neut % (Auto) 73.5 H Lymph % (Auto) 12.9 L Cascade % (Auto) 8.9 Eos % (Auto) 3.6 Baso % (Auto) 0.2 Lymph # (Auto) 1.5 Cascade # (Auto) 1.0 Eos # (Auto) 0.4 Baso # (Auto) 0.0 Abs Immat Gran (auto) 0.11 H Absolute Neuts (auto) 8.5 H Absolute Nucleated RBC 0.000 Nucleated RBC % (auto) 0.0 VBG pH VBG pCO2 VBG pO2 VBG HCO3 VBG O2 Saturation VBG Base Excess Sodium 146 H Potassium 4.4 Chloride 109 H Carbon Dioxide 30 H Anion Gap 11 L BUN 17 H Creatinine 0.66 Estim Creat Clear Calc 98.4 Estimated GFR > 60 Random Glucose 125 H Calcium 8.7 Phosphorus 3.3 Magnesium 2.4 Troponin I High Sens B-Natriuretic Peptide 1781 H 09/16/21 09/16/21 09/16/21 01:26 01:28 05:33 WBC RBC Hgb Hct MCV MCH MCHC RDW Plt Count MPV Immature Gran % (Auto) Neut % (Auto) Lymph % (Auto) Cascade % (Auto) Eos % (Auto) Baso % (Auto) Lymph # (Auto) Cascade # (Auto) Eos # (Auto) Baso # (Auto) Abs Immat Gran (auto) Absolute Neuts (auto) Absolute Nucleated RBC Nucleated RBC % (auto) VBG pH 7.31 L VBG pCO2 74 VBG pO2 45 VBG HCO3 38 H VBG O2 Saturation 71.0 VBG Base Excess 9.2 Sodium 145 Potassium 4.2 Chloride 107 Carbon Dioxide 33 H Anion Gap 9 L BUN 16 Creatinine 0.63 Estim Creat Clear Calc 103.1 Estimated GFR > 60 Random Glucose 117 H Calcium 8.6 Phosphorus 2.9 Magnesium 2.3 Troponin I High Sens 48.6 H B-Natriuretic Peptide 09/16/21 09/16/21 09/16/21 05:33 05:33 09:53 WBC 13.0 H RBC 3.42 L Hgb 9.8 L Hct 34.1 L MCV 99.7 H MCH 28.7 MCHC 28.7 L RDW 13.2 Plt Count 205 MPV 10.0 Immature Gran % (Auto) 0.7 H Neut % (Auto) 74.4 H Lymph % (Auto) 11.2 L Cascade % (Auto) 10.4 Eos % (Auto) 3.2 Baso % (Auto) 0.1 Lymph # (Auto) 1.5 Cascade # (Auto) 1.4 H Eos # (Auto) 0.4 Baso # (Auto) 0.0 Abs Immat Gran (auto) 0.09 H Absolute Neuts (auto) 9.7 H Absolute Nucleated RBC 0.000 Nucleated RBC % (auto) 0.0 VBG pH 7.52 H VBG pCO2 42 VBG pO2 36 VBG HCO3 34 H VBG O2 Saturation 66.0 VBG Base Excess 11.1 Sodium Potassium Chloride Carbon Dioxide Anion Gap BUN Creatinine Estim Creat Clear Calc Estimated GFR Random Glucose Calcium Phosphorus Magnesium Troponin I High Sens B-Natriuretic Peptide 1767 H Imaging Radiologist's impression: Impressions Chest X-Ray 09/16/21 01:20 IMPRESSION: -Findings suspicious for moderate interstitial pulmonary edema increased compared with 09/14/2021 11:35 AM. -Small lateral pleural effusions increased compared with 09/14/2021 11:35 AM. -Stable cardiomegaly. Chest X-Ray 09/16/21 07:10 IMPRESSION: Catheter tip overlying the right atrium. There is no pneumothorax. Persistent opacities bilaterally with increasing retrocardiac opacity which may be consistent with infiltrate or atelectasis Chest X-Ray 09/16/21 11:11 IMPRESSION: 1. Orogastric tube in abdomen. 2. ET tube approximately 3 cm above sheryl. Right IJ at inferior right atrium. 3. Bilateral airspace opacities, slight increase right base. Progress Note: A&P Assessment and plan (1) Nonrheumatic aortic (valve) stenosis: Status: Acute (2) Acute on chronic respiratory failure with hypoxia and hypercapnia: Status: Acute (3) Acute on chronic diastolic (congestive) heart failure: Status: Acute (4) Atrial tachycardia: Status: Acute Assessment and Plan: We did a bedside echocardiogram to reassess aortic stenosis. Currently patient is not having any ectopy at all and heart rate is sinus and regular. Based on this, gradients rather seem to be in the moderate range and peak somewhere in the mid to high 30s or about 40 mm Hg. Calculated valve area is just over 1 sq cm. Study is still getting completed and will be formally reviewed. Based on the preliminary data, no clear evidence of severe aortic stenosis. Hence no absolute indication to proceed with TAVR in this setting. Will need to address pulmonary issues accordingly. Aortic stenosis is clearly not helping but it is not the primary issue. Fall Risk Details Current Medications: Current Medications Albuterol/Ipratropium (Albuterol/Iprat 2.5/0.5mg 3 Ml Ampul.Neb) 3 ml INHALE RQ6H WHILE AWAKE GERMAN Last Admin: 09/16/21 13:54 Dose: 3 ml Documented by: Enoxaparin Sodium (Enoxaparin Sodium 40 Mg/0.4 Ml Syringe) 40 mg SUBCUT Q24H [facility] Last Admin: 09/16/21 02:28 Dose: 40 mg Documented by: Phenylephrine HCl 20 mg/ (Sodium Chloride) 252 mls @ 0 mls/hr IVCONT .Q0M [facility]; Protocol Last Titration: 09/16/21 13:31 Dose: 0.25 mcg/kg/min, 20.6 mls/hr Documented by: Potassium Chloride/Dextrose () 20 meq in 1,000 mls @ 80 mls/hr IVCONT .[id number] [facility] Last Admin: 09/16/21 07:49 Dose: 80 mls/hr Documented by: Propofol (Diprivan) 1,000 mg in 100 mls @ 0 mls/hr IVCONT .Q0M [facility]; Protocol Last Admin: 09/16/21 10:35 Dose: 35 mcg/kg/min, 22.34 mls/hr Documented by: Vancomycin HCl 1,000 mg/ (Sodium Chloride) 270 mls @ 270 mls/hr IV Q12H [facility] Last Infusion: 09/16/21 11:46 Dose: Infused Documented by: Levothyroxine Sodium (Levothyroxine Sodium 150 Mcg Tablet) 150 mcg PO DAILY@0600 [facility] Last Admin: 09/16/21 06:19 Dose: Not Given Documented by: Metoprolol Tartrate (Metoprolol Tartrate 25 Mg Tablet) 25 mg PO BID [facility]; Protocol Last Admin: 09/16/21 11:51 Dose: 25 mg Documented by: Pharmacy Consult (Consult Rx Vancomycin Dosing) 1 each MISCELLANE DAILY PRN PRN Reason: Consult order Prednisone (Prednisone 5 Mg Tablet) 35 mg PO DAILY [facility] Last Admin: 09/16/21 11:52 Dose: 35 mg Documented by: Time Spent With Patient Time: Total time spent is greater than 50% in coordination of care (as documented) at patient's floor/unit and/or counseling patient: Time with patient: 15 - 24 minutes Progress Note: Quality Stroke Does the patient have a stroke diagnosis?: No Procedures Date of Service Date of Service: 09/16/21
[2021-09-16] MEDS: propofoL 1,000 MG/100 ML VIAL 15.96 MG IVCONT (19:43)
[2021-09-16] MEDS: Chlorhexidine Gluc Oral Rinse 15 ML MOUTHWASH BUCCAL (21:15)
[2021-09-16] MEDS: Mineral OiL enema 133 ML ENEMA PR (21:27)
[2021-09-16] MEDS: propofoL 1,000 MG/100 ML VIAL 19.15 MG IVCONT (23:14)
[2021-09-17] VITALS (30 sets, daily range): BP systolic 97–161; BP diastolic 44–80; PULSE 53–76; RESP 16; TEMP 34.5–36.5; O2SAT 3–100; BMI 36.9
[2021-09-17] MEDS: Furosemide 20 MG/2 ML VIAL IVPUSH (00:58)
[2021-09-17] MEDS: propofoL 1,000 MG/100 ML VIAL 22.34 MG IVCONT ×6 (02:22→21:53)
[2021-09-17] MEDS: Enoxaparin Sodium 40 MG/0.4 ML SYRINGE SUBCUT (02:23)
--- NOTE | 2021-09-17 05:29 | PC.NURSE ---
received patient in handoff. pt was sedated and would respond to light tactile stimuli. Pt is intubated and on a vent with AC rate 16, tidal volume 400, oxygen 30% and peep of 8. ETT of 7, 22cm at the lip. Pt LS are clear in the upper lobes and dim in the bases. Pt is edematous throughout. Pt has a broderick with good output. Pt output did diminish at one point at which the patient received lasix and output improved. Bowel sounds are hypoactive. Pt received a enema for constipation with no relief. Pt was then sent for abd CT, PA aware of imaging results. Pt did not receive anything through the OG due to poor bowel movement. Pt vital signs have been stable. Pt did require a short use of SANGEETA for hypotension just before heading to CT.
[2021-09-17 05:32] LABS: VBG Base Excess 12.3 mmol/L; VBG HCO3 34 mmol/L (22-26); VBG pCO2 36 mmHg; VBG pH 7.58 (7.32-7.43); VBG pO2 35 mmHg
[2021-09-17 06:06] LABS: Venous Blood Gas Refer to POC result
[2021-09-17 06:07] LABS: MANUAL DIFF FLAG NO
[2021-09-17 06:15] LABS: Basophils Percent Auto 0.3 % (0-2); Eosinophils Absolute Auto 0.2 X10*3/uL (0.0-0.4); Eosinophils Percent Auto 2.8 % (0-4); Hematocrit 29.1 % (37.0-47.0); Hemoglobin 8.9 g/dl (12.0-16.0); Imm Gran Abs Auto 0.06 X10*3/uL (0.00-0.03); Imm Gran Pct Auto 0.8 % (0.0-0.4); Lymphocytes Absolute Auto 1.6 X10*3/uL (1.2-4.9); Mean Corpuscular HGB Conc 30.6 g/dl (31.0-35.0); Mean Corpuscular Hemoglobin 28.8 pg (27.0-33.0); Mean Corpuscular Volume 94.2 fL (80.0-98.0); Mean Platelet Volume 10.4 fL (9.4-12.3); Monocytes Absolute Auto 0.6 X10*3/uL (0.1-1.2); Monocytes Percent Auto 8.6 % (2-11); Neutrophils Absolute Auto 4.9 x10*3/uL (2.0-8.3); Neutrophils Percent Auto 65.5 % (45-73); Platelet Count 186 X10*3/uL (160-400); Red Blood Count 3.09 X10*6/uL (4.20-5.50); Red Cell Distribution Width 12.8 % (11.0-16.0); White Blood Count 7.5 X10*3/uL (4.8-10.8)
[2021-09-17 06:38] LABS: Anion Gap 11 (12-20); Blood Urea Nitrogen 13 mg/dL (9-16); Calcium 7.9 mg/dL (8.4-10.2); Carbon Dioxide 29 mmol/L (22-29); Chloride 106 mmol/L (96-108); Creatinine Clr Calc Pharmacy 113.6; Estimated Glomerular Filt Rate > 60; Glucose Random 91 mg/dL (60-115); Magnesium 2.1 mg/dL (1.6-2.6); Potassium 3.6 mmol/L (3.3-5.1); Sodium 142 mmol/L (135-145)
[2021-09-17 06:39] LABS: B Type Natriuretic Peptide 1745 pg/mL (<100)
[2021-09-17] MEDS: levoFLOXacin/D5W 750 MG/150 ML PIGGYBACK 100 MG IV (07:17)
[2021-09-17] MEDS: metroNIDAZOLE/NS 500 MG/100 ML PIGGYBACK 100 MG IV ×3 (07:48→23:05)
[2021-09-17] MEDS: Chlorhexidine Gluc Oral Rinse 15 ML MOUTHWASH BUCCAL ×3 (09:44→19:47)
[2021-09-17] MEDS: predniSONE 10 MG TABLET 30 MG PO (09:44)
[2021-09-17] MEDS: vancomycin HCL 1,000 MG in 0.9 % Sodium Chloride 250 ML 270 MG IV ×2 (09:45→21:53)
--- NOTE | 2021-09-17 10:27 | P.PNCC_ITS ---
Subjective Subjective Date of Service: 09/17/21 Interval History: 71-year-old very complicated lady with severe underlying COPD but probably has is significant underlying psychiatric issues in a which make her very difficult an uncooperative patient with a great level of continued smoking right up to the day she presented with yet another episode 1 of many recently of acute hypercarbic primarily and hypoxic respiratory failure without an apparent infectious etiology She is basically in sinus rhythm but with a lot of atrial ectopy including in 0 a great deal of atrial echo beating so there is some form of paroxysmal atrial tachycardia which is somewhat better controlled now but I am adjust intubated her for the 3rd time yesterday as she looked like she was in pulmonary edema on the BiPAP mechanism struggling to breathe with which tremendous inspiratory effort marked neck vein distension borderline blood pressure but initially extremely in acutely hypertensive with so much atrial ectopy that her heart rates even peaked at 180 and when I looked in with the glide scope in you could see that the glottis was extremely swollen I would be surprised if especially with with a great deal of inspiratory effort that she did not create upper airway obstruction dynamically and worsened matters and potentially even produce a negative pressure pulmonary edema versus pulmonary edema potentially on an ischemic basis and I had always noted elevated trans aortic valvular velocities in excess of 4 m/sec in feeling that the valve was critically stenosed now we I can not find any complex is above 3-3.5 m/sec but there is also a many increased degree of diffuse hypokinesis of the ventricle making me wonder whether not in of the some of the muscle list on from the severe subendocardial ischemia and therefore the lower I inotropic state smaller stroke volume etc. might be sports Joy lowering her and the pressure gradient and and that is something that should be easy to prove if we with a start less a low-dose of either dobutamine or dopamine and then remeasured the transaortic valvular velocities and a chest x-ray very difficult to interpret but there are now still small but increasing bilateral pleural effusions with overlying atelectasis can not completely rule out infectious consolidation although she is not behaving that way in terms of white count fever etc. Abdominal CT scan implied some degree of of a focal colitis which could easily be ischemic or might very well represent C diff because of the antibiotics that she had been on so all told on going to cover chest and abdomen with Levaquin and metronidazole in addition to the ongoing vancomycin Critical Care Time (minutes): 60 Physical Exam Vital Signs: Vital Signs: Last Vital Signs Temp 97.5 F 09/17/21 08:00 Pulse 56 09/17/21 10:00 Resp 16 09/17/21 10:00 BP 101/62 09/17/21 10:00 Pulse Ox 95 09/17/21 10:00 Oxygen Flow Rate 4 09/09/21 22:09 BMI result Body Mass Index 36.9 Sedated and intubated good urine Output and intact scan bedside echo shows the aim mild but increased degree of diffuse hypokinesis of the left ventricle with a 3-3.5 m/sec trans aortic valvular velocity no pericardial disease no right heart dysfunction At abdomen is benign thus far so accepting of feedings Objective Data Labs CBC & Chem 7: 09/17/21 05:58 09/17/21 05:58 Labs: Laboratory Results - last 24 hr 09/17/21 09/17/21 09/17/21 05:26 05:58 05:58 WBC 7.5 RBC 3.09 L Hgb 8.9 L Hct 29.1 L MCV 94.2 D MCH 28.8 MCHC 30.6 L RDW 12.8 Plt Count 186 MPV 10.4 Immature Gran % (Auto) 0.8 H Neut % (Auto) 65.5 Lymph % (Auto) 22.0 Randall % (Auto) 8.6 Eos % (Auto) 2.8 Baso % (Auto) 0.3 Lymph # (Auto) 1.6 Randall # (Auto) 0.6 Eos # (Auto) 0.2 Baso # (Auto) 0.0 Abs Immat Gran (auto) 0.06 H Absolute Neuts (auto) 4.9 Absolute Nucleated RBC 0.000 Nucleated RBC % (auto) 0.0 VBG pH 7.58 H VBG pCO2 36 VBG pO2 35 VBG HCO3 34 H VBG O2 Saturation 60.0 VBG Base Excess 12.3 Sodium 142 Potassium 3.6 Chloride 106 Carbon Dioxide 29 Anion Gap 11 L BUN 13 Creatinine 0.58 Estim Creat Clear Calc 113.6 Estimated GFR > 60 Random Glucose 91 Calcium 7.9 L D Phosphorus 2.0 L Magnesium 2.1 B-Natriuretic Peptide Vancomycin Trough 09/17/21 09/17/21 05:58 08:46 WBC RBC Hgb Hct MCV MCH MCHC RDW Plt Count MPV Immature Gran % (Auto) Neut % (Auto) Lymph % (Auto) Randall % (Auto) Eos % (Auto) Baso % (Auto) Lymph # (Auto) Randall # (Auto) Eos # (Auto) Baso # (Auto) Abs Immat Gran (auto) Absolute Neuts (auto) Absolute Nucleated RBC Nucleated RBC % (auto) VBG pH VBG pCO2 VBG pO2 VBG HCO3 VBG O2 Saturation VBG Base Excess Sodium Potassium Chloride Carbon Dioxide Anion Gap BUN Creatinine Estim Creat Clear Calc Estimated GFR Random Glucose Calcium Phosphorus Magnesium B-Natriuretic Peptide 1745 H Vancomycin Trough 17.0 Microbiology Microbiology Results: Microbiology 09/12/21 05:20 Blood - Venous Blood Culture - Final No growth after 5 days. 09/12/21 05:32 Blood - Venous Blood Culture - Final No growth after 5 days. 09/14/21 08:55 Blood - Venous Blood Culture - Preliminary No growth after 48 hours. 09/14/21 10:10 Catheter Tip - Cvp Catheter Tip Culture - Preliminary Coag negative Staphylococcus 09/14/21 08:46 Blood - Venous Blood Culture - Final Coag negative Staphylococcus 09/09/21 22:41 Blood - Venous Blood Culture - Final No growth after 5 days. 09/09/21 22:41 Blood - Venous Blood Culture - Final Coag negative Staphylococcus 09/10/21 05:00 Sputum - Suctioned Gram Stain - Final 09/10/21 05:00 Sputum - Suctioned Sputum Culture - Final No growth. 09/10/21 00:00 Urine Catheterized - Stanford Catheter Urine Culture - Final Enterococcus faecalis Progress Note: A&P Assessment and plan (1) Agitation: Status: Acute (2) Hypernatremia: Status: Acute (3) Atrial tachycardia: Status: Acute (4) Acute respiratory failure: Status: Acute (5) CHF exacerbation: Status: Acute (6) COPD exacerbation: Status: Acute (7) Altered mental state: Status: Acute (8) Cerebral infarction: Status: Acute (9) Acute CVA (cerebrovascular accident): Status: Acute (10) Fall: Status: Acute (11) Thoracic aortic aneurysm (TAA): Status: Acute (12) Recurrent incisional hernia: Status: Acute (13) Acute on chronic diastolic (congestive) heart failure: Status: Acute (14) Acute CHF: Status: Acute (15) Acute on chronic respiratory failure with hypoxia and hypercapnia: Status: Acute (16) Acute metabolic encephalopathy: Status: Acute (17) CAP (community acquired pneumonia): Status: Acute (18) Enuresis: Status: Acute (19) Urge incontinence: Status: Acute (20) Respiratory failure with hypoxia and hypercapnia: Status: Acute (21) COPD (chronic obstructive pulmonary disease): Status: Acute (22) Chronic diastolic (congestive) heart failure: Status: Acute (23) Atrial arrhythmia: Status: Acute (24) DHEERAJ (obstructive sleep apnea): Status: Acute (25) On home oxygen therapy: Status: Acute (26) Bifascicular block: Status: Acute (27) Atherosclerotic cardiovascular disease: Status: Acute (28) Nonrheumatic aortic (valve) stenosis: Status: Acute Assessment and Plan: Continued ventilator support for now surveillance sputum cultures follow-up x- rays and I think I am going to at least short-term inotropics support and redo the velocities across the aortic valve to see if this is Dewayne poor ES low-flow is woodrow Quality Stroke Does the patient have a stroke diagnosis?: No VTE Prior VTE?: No VTE Risk Level:: Medical - moderate - high VTE Device Contraindication: N/A - Device Ordered VTE Drug Contraindication: N/A - Med Ordered
[2021-09-17 11:30] LABS: Troponin-I High Sensitivity 34.7 ng/L (<3.5-17.0)
[2021-09-17] MEDS: Magnesium Citrate 300 ML SOLUTION PO (21:53)
[2021-09-18] VITALS (30 sets, daily range): BP systolic 93–152; BP diastolic 50–76; PULSE 49–99; RESP 16; TEMP 34–36.8; O2SAT 90–98; BMI 36.8
[2021-09-18] MEDS: Enoxaparin Sodium 40 MG/0.4 ML SYRINGE SUBCUT (01:52)
[2021-09-18] MEDS: propofoL 1,000 MG/100 ML VIAL 22.34 MG IVCONT ×7 (01:52→23:34)
[2021-09-18 05:30] LABS: VBG Base Excess 9.3 mmol/L; VBG HCO3 32 mmol/L (22-26); VBG pCO2 38 mmHg; VBG pH 7.53 (7.32-7.43); VBG pO2 40 mmHg
--- NOTE | 2021-09-18 05:30 | PC.NURSE ---
REMAINS TUBED/VENTED...VCV/AC MODE...SEDATE WITH PROPOFOL....BP STABLE...NO BM OVERNIGHT...(+) FLATUS BUT NO STOOL....ABDOMINAL PRESSURE VIA JUAREZ = 14 ...DECREASED URINE OUTPUT OVERNIGHT...AM BNP DRAWN/PENDING...NSR..FREQUENT ATRIAL ECTOPY INTERMITTANTLY
--- NOTE | 2021-09-18 05:32 | PC.NURSE ---
pt remains vented, on propofol. abd- stool burden is palpable. PA disimpacted pt. Pt was then given a mag citrate PO cocktail and has yet to have output from that. Pt has had some flatus. Pt is still on AC control vent. Pt has had decent output in broderick. Urine has been dark and output has diminished into the morning.
[2021-09-18 05:34] LABS: MANUAL DIFF FLAG NO
[2021-09-18 05:41] LABS: Eosinophils Absolute Auto 0.1 X10*3/uL (0.0-0.4); Eosinophils Percent Auto 1.6 % (0-4); Hematocrit 28.9 % (37.0-47.0); Imm Gran Abs Auto 0.09 X10*3/uL (0.00-0.03); Imm Gran Pct Auto 1.2 % (0.0-0.4); Lymphocytes Absolute Auto 1.7 X10*3/uL (1.2-4.9); Lymphocytes Percent Auto 22.8 % (20-40); Mean Corpuscular HGB Conc 31.1 g/dl (31.0-35.0); Mean Corpuscular Hemoglobin 29.2 pg (27.0-33.0); Mean Corpuscular Volume 93.8 fL (80.0-98.0); Mean Platelet Volume 10.1 fL (9.4-12.3); Monocytes Absolute Auto 0.7 X10*3/uL (0.1-1.2); Monocytes Percent Auto 9.2 % (2-11); Neutrophils Absolute Auto 4.9 x10*3/uL (2.0-8.3); Neutrophils Percent Auto 65.2 % (45-73); Platelet Count 204 X10*3/uL (160-400); Red Blood Count 3.08 X10*6/uL (4.20-5.50); Red Cell Distribution Width 13.2 % (11.0-16.0); White Blood Count 7.5 X10*3/uL (4.8-10.8)
[2021-09-18 06:02] LABS: Anion Gap 14 (12-20); Blood Urea Nitrogen 14 mg/dL (9-16); Calcium 8.1 mg/dL (8.4-10.2); Carbon Dioxide 25 mmol/L (22-29); Chloride 110 mmol/L (96-108); Estimated Glomerular Filt Rate > 60; Glucose Random 88 mg/dL (60-115); Magnesium 2.2 mg/dL (1.6-2.6); Phosphorus 2.6 mg/dL (2.7-4.5); Potassium 3.8 mmol/L (3.3-5.1); Sodium 145 mmol/L (135-145)
[2021-09-18 06:06] LABS: B Type Natriuretic Peptide 1101 pg/mL (<100)
[2021-09-18 06:17] LABS: Albumin Level 2.7 g/dL (3.5-5.0)
[2021-09-18 06:34] LABS: Venous Blood Gas Refer to POC result
[2021-09-18] MEDS: metroNIDAZOLE/NS 500 MG/100 ML PIGGYBACK 100 MG IV ×3 (08:38→22:55)
[2021-09-18] MEDS: Chlorhexidine Gluc Oral Rinse 15 ML MOUTHWASH BUCCAL ×3 (08:38→20:08)
[2021-09-18] MEDS: predniSONE 10 MG TABLET 30 MG PO (08:38)
[2021-09-18] MEDS: Caspofungin Acetate 70 MG in 0.9 % Sodium Chloride 250 ML 250 MG IV (09:26)
--- NOTE | 2021-09-18 10:21 | PM.PNCARD ---
Subjective Subjective Date of Service: 09/18/21 Interval history: Intubated. Review of Systems Review of Systems Not obtainable due to mental status/intubated Physical Exam Vital Signs: Last Vital Signs Temp 97.6 F 09/18/21 08:00 Pulse 55 09/18/21 10:00 Resp 16 09/18/21 10:00 BP 118/60 09/18/21 10:00 Pulse Ox 92 09/18/21 10:00 Oxygen Flow Rate 4 09/09/21 22:09 BMI result Body Mass Index 36.8 Const Other: Intubated [facility] Other: Unremarkable Neck Neck: Yes normal visual inspection Chest Chest palpation & inspection: normal inspection of the chest Resp Auscultation: diminished lung sounds Cardio Jugular venous distension: no JVD Palpation: normal PMI Heart sounds: S1 normal heart sound present, S2 normal heart sound present, no gallops, Murmur heart sound present systolic and no rubs GI Palpation (GI): Soft to palpation Back/Spine/Pelvis Other: unremarkable Skin General skin exam: no rashes or lesions noted Neuro Other: Intubated Cranial nerves: Yes Other cranial nerve findings present Extrem General: Yes no clubbing, cyanosis or edema Psych Mental Status: other Objective Labs and Meds Result diagrams: 09/18/21 05:19 09/18/21 05:18 Lab results: Laboratory Results - last 24 hr 09/17/21 09/18/21 09/18/21 10:59 05:18 05:19 WBC 7.5 RBC 3.08 L Hgb 9.0 L Hct 28.9 L MCV 93.8 MCH 29.2 MCHC 31.1 RDW 13.2 Plt Count 204 MPV 10.1 Immature Gran % (Auto) 1.2 H Neut % (Auto) 65.2 Lymph % (Auto) 22.8 [place] % (Auto) 9.2 Eos % (Auto) 1.6 Baso % (Auto) 0.0 Lymph # (Auto) 1.7 [place] # (Auto) 0.7 Eos # (Auto) 0.1 Baso # (Auto) 0.0 Abs Immat Gran (auto) 0.09 H Absolute Neuts (auto) 4.9 Absolute Nucleated RBC 0.000 Nucleated RBC % (auto) 0.0 VBG pH VBG pCO2 VBG pO2 VBG HCO3 VBG O2 Saturation VBG Base Excess Sodium 145 Potassium 3.8 Chloride 110 H Carbon Dioxide 25 Anion Gap 14 BUN 14 Creatinine 0.61 Estim Creat Clear Calc 108.0 Estimated GFR > 60 Random Glucose 88 Calcium 8.1 L Phosphorus 2.6 L Magnesium 2.2 Troponin I High Sens 34.7 H B-Natriuretic Peptide Albumin 2.7 L D 09/18/21 09/18/21 05:19 05:23 WBC RBC Hgb Hct MCV MCH MCHC RDW Plt Count MPV Immature Gran % (Auto) Neut % (Auto) Lymph % (Auto) [place] % (Auto) Eos % (Auto) Baso % (Auto) Lymph # (Auto) [place] # (Auto) Eos # (Auto) Baso # (Auto) Abs Immat Gran (auto) Absolute Neuts (auto) Absolute Nucleated RBC Nucleated RBC % (auto) VBG pH 7.53 H VBG pCO2 38 VBG pO2 40 VBG HCO3 32 H VBG O2 Saturation 64.0 VBG Base Excess 9.3 Sodium Potassium Chloride Carbon Dioxide Anion Gap BUN Creatinine Estim Creat Clear Calc Estimated GFR Random Glucose Calcium Phosphorus Magnesium Troponin I High Sens B-Natriuretic Peptide 1101 H Albumin Progress Note: A&P Assessment and plan (1) Nonrheumatic aortic (valve) stenosis: Status: Acute (2) Acute on chronic respiratory failure with hypoxia and hypercapnia: Status: Acute (3) Acute on chronic diastolic (congestive) heart failure: Status: Acute (4) Atrial tachycardia: Status: Acute Assessment and Plan: In the most recent echocardiogram from Sunday performed after she was intubated, LVEF was about 50%. Slightly diminished from before. Peak gradient across aortic valve was 39 mm Hg with a mean of 23 mm Hg. Dimensionless index was 0.3. Calculated valve area was 1.04 sq cm. Stroke volume index was diminished at 35 cc. Overall this is still in the moderate range approaching severe. This study was done then the rhythm was sinus without any clear ectopy but previous studies have been done with extensive ectopy and hence variable gradients and other measurements. Overall, decompensation mainly from pulmonary issues due to advanced COPD. However aortic stenosis is not helping either and contribute to the issues, rather than being the primary problem. She is still not suitable at this time for TAVR. However, can consider transfer to a tertiary care center for formal evaluation by structural team. This again depends on what the family wishes. Discussed at length with Dr. Proctor, who has been communicating with the family. Fall Risk Details Current Medications: Current Medications Chlorhexidine Gluconate (Chlorhexidine Gluc Oral Rinse 15 Ml Mouthwash) 15 ml BUCCAL TID [facility] Last Admin: 09/18/21 08:38 Dose: 15 ml Documented by: Enoxaparin Sodium (Enoxaparin Sodium 40 Mg/0.4 Ml Syringe) 40 mg SUBCUT Q24H [facility] Last Admin: 09/18/21 01:52 Dose: 40 mg Documented by: Phenylephrine HCl 20 mg/ (Sodium Chloride) 252 mls @ 0 mls/hr IVCONT .Q0M [facility]; Protocol Last Titration: 09/17/21 07:09 Dose: Infused Documented by: Propofol (Diprivan) 1,000 mg in 100 mls @ 0 mls/hr IVCONT .Q0M [facility]; Protocol Last Admin: 09/18/21 09:00 Dose: 35 mcg/kg/min, 22.34 mls/hr Documented by: Vancomycin HCl 1,000 mg/ (Sodium Chloride) 270 mls @ 270 mls/hr IV Q12H [facility] Last Infusion: 09/17/21 23:05 Dose: Infused Documented by: Metronidazole (Flagyl) 500 mg in 100 mls @ 100 mls/hr IV Q8H [facility] Last Infusion: 09/18/21 09:43 Dose: Infused Documented by: Caspofungin 70 mg/ Sodium (Chloride) 250 mls @ 250 mls/hr IV ONCE ONE Stop: 09/18/21 10:29 Last Admin: 09/18/21 09:26 Dose: 250 mls/hr Documented by: Levothyroxine Sodium (Levothyroxine Sodium 150 Mcg Tablet) 150 mcg PO DAILY@0600 [facility] Last Admin: 09/18/21 05:23 Dose: Not Given Documented by: Prednisone (Prednisone 10 Mg Tablet) 30 mg PO DAILY [facility] Last Admin: 09/18/21 08:38 Dose: 30 mg Documented by: Time Spent With Patient Time: Total time spent is greater than 50% in coordination of care (as documented) at patient's floor/unit and/or counseling patient: Time with patient: less than 15 minutes Progress Note: Quality Stroke Does the patient have a stroke diagnosis?: No Procedures Date of Service Date of Service: 09/18/21
[2021-09-18] MEDS: vancomycin HCL 1,000 MG in 0.9 % Sodium Chloride 250 ML 270 MG IV (10:36)
--- NOTE | 2021-09-18 13:21 | MHC.CM.PN ---
pt is in the icu, intubed on [facility]. ventilator. dc plan is uncertain at this time. pending respiratory needs pt may benefit from going to LTAC, an alternative option would be for patient to return to [facility]. cm to cont. to follow.
--- NOTE | 2021-09-18 14:34 | P.PNCC_ITS ---
Subjective Subjective Date of Service: 09/18/21 Interval History: 71-year-old female with longstanding psychiatric issues including major depression very difficult to manage her because she is very uncooperative presents with 1 of multiple episodes recently of respiratory failure and this is the 3rd intubation for this admission alone with very significant glottic tissue swelling in a from from trauma who again went into acute respiratory failure about 4 days after her initial extubation and appear to be in in pulmonary edema and some of which may have been because of upper airway obstruction as I just mentioned and 7 this may be because I do believe still that there is critical aortic valvular stenosis After this event that completely mellowed after intubation we had also placed a central line she has got the comfortable central venous pressure of about 9 or 10 remains in a sinus bradycardia with a lot of atrial ectopy and is diuresing comfortably on the basis of ventilator support and after the the event as I said the the ventricle became at least a mildly to moderately increasingly hypokinetic globally and no segmental wall motion abnormality no troponin positivity but I wonder if is could be a on the basis of stunning from subendocardial ischemia and it has led to a low-flow less than 35 mils per sq meter and and of course we were getting trans aortic valvular velocities in the range of about 3-3.2 meters for 2nd so I initiated dobutamine at 2.5 micrograms/kilos with that heart rate came up by over 10% indicating obviously its affect and interestingly we got consistent trans aortic valvular velocities now more in the range of about 4.5 m/sec and a left ventricular outflow tract velocity of 1.2 Lisha meters per 2nd and the calculated aortic valve area with in creased flow today compares almost identically to this the lower flow state at about 0.8 me sq cm and that brings us to 0.335 sq cm per meter squared given her BSA of 2.2 and the only thing that changed is the pressure gradient which went up from about 40 mmHg pressure to over 80 mmHg and that is consistent with critical aortic stenosis Critical Care Time (minutes): 60 Physical Exam Vital Signs: Vital Signs: Last Vital Signs Temp 97.3 F 09/18/21 12:00 Pulse 50 09/18/21 14:00 Resp 16 09/18/21 14:00 BP 132/76 09/18/21 14:00 Pulse Ox 93 09/18/21 14:00 Oxygen Flow Rate 4 09/09/21 22:09 BMI result Body Mass Index 36.8 Sedated and intubated with stable vital signs and no need for pressor support Parvus and tardus upstrokes of her carotid with bedside echo as I described above indicating critical aortic stenosis and again at the very least heart failure on that basis with some diminished left ventricular reserve behind that is definitely contributing to these recurrent episodes of respiratory failure Abdomen a little distended Tammy because of her continued impaction which we are gradually taking care of with continued disimpaction mechanically and then from above magnesium citrate No adventitious sounds no accessory muscle effort Objective Data Labs CBC & Chem 7: 09/18/21 05:19 09/18/21 05:18 Labs: Laboratory Results - last 24 hr 09/18/21 09/18/21 09/18/21 05:18 05:19 05:19 WBC 7.5 RBC 3.08 L Hgb 9.0 L Hct 28.9 L MCV 93.8 MCH 29.2 MCHC 31.1 RDW 13.2 Plt Count 204 MPV 10.1 Immature Gran % (Auto) 1.2 H Neut % (Auto) 65.2 Lymph % (Auto) 22.8 [place] % (Auto) 9.2 Eos % (Auto) 1.6 Baso % (Auto) 0.0 Lymph # (Auto) 1.7 [place] # (Auto) 0.7 Eos # (Auto) 0.1 Baso # (Auto) 0.0 Abs Immat Gran (auto) 0.09 H Absolute Neuts (auto) 4.9 Absolute Nucleated RBC 0.000 Nucleated RBC % (auto) 0.0 VBG pH VBG pCO2 VBG pO2 VBG HCO3 VBG O2 Saturation VBG Base Excess Sodium 145 Potassium 3.8 Chloride 110 H Carbon Dioxide 25 Anion Gap 14 BUN 14 Creatinine 0.61 Estim Creat Clear Calc 108.0 Estimated GFR > 60 Random Glucose 88 Calcium 8.1 L Phosphorus 2.6 L Magnesium 2.2 B-Natriuretic Peptide 1101 H Albumin 2.7 L D 09/18/21 05:23 WBC RBC Hgb Hct MCV MCH MCHC RDW Plt Count MPV Immature Gran % (Auto) Neut % (Auto) Lymph % (Auto) [place] % (Auto) Eos % (Auto) Baso % (Auto) Lymph # (Auto) [place] # (Auto) Eos # (Auto) Baso # (Auto) Abs Immat Gran (auto) Absolute Neuts (auto) Absolute Nucleated RBC Nucleated RBC % (auto) VBG pH 7.53 H VBG pCO2 38 VBG pO2 40 VBG HCO3 32 H VBG O2 Saturation 64.0 VBG Base Excess 9.3 Sodium Potassium Chloride Carbon Dioxide Anion Gap BUN Creatinine Estim Creat Clear Calc Estimated GFR Random Glucose Calcium Phosphorus Magnesium B-Natriuretic Peptide Albumin Microbiology Microbiology Results: Microbiology 09/17/21 07:32 Sputum - Suctioned Gram Stain - Final 09/17/21 07:32 Sputum - Suctioned Sputum Culture - Preliminary Yeast 09/14/21 10:10 Catheter Tip - Cvp Catheter Tip Culture - Final 09/12/21 05:20 Blood - Venous Blood Culture - Final No growth after 5 days. 09/12/21 05:32 Blood - Venous Blood Culture - Final No growth after 5 days. 09/14/21 08:55 Blood - Venous Blood Culture - Preliminary No growth after 48 hours. 09/14/21 08:46 Blood - Venous Blood Culture - Final Coag negative Staphylococcus 09/09/21 22:41 Blood - Venous Blood Culture - Final No growth after 5 days. 09/09/21 22:41 Blood - Venous Blood Culture - Final Coag negative Staphylococcus 09/10/21 05:00 Sputum - Suctioned Gram Stain - Final 09/10/21 05:00 Sputum - Suctioned Sputum Culture - Final No growth. 09/10/21 00:00 Urine Catheterized - [place] Catheter Urine Culture - Final Enterococcus faecalis Progress Note: A&P Assessment and plan (1) Agitation: Status: Acute (2) Hypernatremia: Status: Acute (3) Atrial tachycardia: Status: Acute (4) Acute respiratory failure: Status: Acute (5) CHF exacerbation: Status: Acute (6) COPD exacerbation: Status: Acute (7) Altered mental state: Status: Acute (8) Cerebral infarction: Status: Acute (9) Acute CVA (cerebrovascular accident): Status: Acute (10) Fall: Status: Acute (11) Thoracic aortic aneurysm (TAA): Status: Acute (12) Recurrent incisional hernia: Status: Acute (13) Acute on chronic diastolic (congestive) heart failure: Status: Acute (14) Acute on chronic respiratory failure with hypoxia and hypercapnia: Status: Acute (15) Acute CHF: Status: Acute (16) Acute metabolic encephalopathy: Status: Acute (17) CAP (community acquired pneumonia): Status: Acute (18) Enuresis: Status: Acute (19) Urge incontinence: Status: Acute (20) Respiratory failure with hypoxia and hypercapnia: Status: Acute (21) COPD (chronic obstructive pulmonary disease): Status: Acute (22) Chronic diastolic (congestive) heart failure: Status: Acute (23) Atrial arrhythmia: Status: Acute (24) DHEERAJ (obstructive sleep apnea): Status: Acute (25) On home oxygen therapy: Status: Acute (26) Bifascicular block: Status: Acute (27) Atherosclerotic cardiovascular disease: Status: Acute (28) Nonrheumatic aortic (valve) stenosis: Status: Acute Assessment and Plan: So this lady again is the LAD with repeated episodes of acute on chronic hypoxic and hypercarbic respiratory failure severe COPD active smoker up until admission but I do believe she also has critical aortic stenosis which at the very least is is making weaning from the ventilator more difficult and at this point she has not been tolerant all of rid remaining off the ventilator and was always at the expense of prolonged use of noninvasive ventilation so at this point I have spoken to the family and if they are still in agreement the next step would be t racheostomy and and I say I would say PEG tube with the same time and with with continued engagement with Psychiatry so she does not pull things out and hopefully cooperates I do believe after that and if she is cooperative and agrees to a next step I would consider cardiac catheterization and possible trans aortic valvular replacement Quality Stroke Does the patient have a stroke diagnosis?: No VTE Prior VTE?: No VTE Risk Level:: Medical - moderate - high VTE Device Contraindication: N/A - Device Ordered VTE Drug Contraindication: N/A - Med Ordered
[2021-09-18] MEDS: Magnesium Citrate 300 ML SOLUTION PO (14:59)
[2021-09-18 20:26] LABS: Vancomycin Trough 20.8 mcg/mL (10.0-20.0)
[2021-09-18] MEDS: vancomycin HCL 750 MG in 0.9 % Sodium Chloride 250 ML 265 MG IV (21:18)
[2021-09-19] VITALS (32 sets, daily range): BP systolic 107–169; BP diastolic 49–99; PULSE 44–102; RESP 12–17; TEMP 34.8–36.8; O2SAT 92–99; BMI 36.6
[2021-09-19] MEDS: Enoxaparin Sodium 40 MG/0.4 ML SYRINGE SUBCUT (02:35)
[2021-09-19] MEDS: propofoL 1,000 MG/100 ML VIAL 19.15 MG IVCONT ×3 (03:36→19:05)
[2021-09-19 05:20] LABS: VBG HCO3 31 mmol/L (22-26); VBG pCO2 37 mmHg; VBG pH 7.52 (7.32-7.43); VBG pO2 48 mmHg
[2021-09-19 05:34] LABS: MANUAL DIFF FLAG NO
[2021-09-19 05:40] LABS: Basophils Percent Auto 0.1 % (0-2); Eosinophils Absolute Auto 0.2 X10*3/uL (0.0-0.4); Eosinophils Percent Auto 2.2 % (0-4); Hematocrit 29.1 % (37.0-47.0); Hemoglobin 9.1 g/dl (12.0-16.0); Imm Gran Abs Auto 0.12 X10*3/uL (0.00-0.03); Imm Gran Pct Auto 1.7 % (0.0-0.4); Lymphocytes Absolute Auto 2.2 X10*3/uL (1.2-4.9); Lymphocytes Percent Auto 30.7 % (20-40); Mean Corpuscular HGB Conc 31.3 g/dl (31.0-35.0); Mean Corpuscular Hemoglobin 28.5 pg (27.0-33.0); Mean Corpuscular Volume 91.2 fL (80.0-98.0); Monocytes Absolute Auto 0.7 X10*3/uL (0.1-1.2); Monocytes Percent Auto 9.4 % (2-11); Neutrophils Percent Auto 55.9 % (45-73); Platelet Count 213 X10*3/uL (160-400); Red Blood Count 3.19 X10*6/uL (4.20-5.50); Red Cell Distribution Width 13.1 % (11.0-16.0); White Blood Count 7.2 X10*3/uL (4.8-10.8)
[2021-09-19 05:58] LABS: Anion Gap 10 (12-20); B Type Natriuretic Peptide 895 pg/mL (<100); Blood Urea Nitrogen 14 mg/dL (9-16); Carbon Dioxide 28 mmol/L (22-29); Chloride 110 mmol/L (96-108); Creatinine Clr Calc Pharmacy 109.2; Estimated Glomerular Filt Rate > 60; Glucose Random 79 mg/dL (60-115); Magnesium 2.5 mg/dL (1.6-2.6); Phosphorus 2.7 mg/dL (2.7-4.5); Sodium 144 mmol/L (135-145)
[2021-09-19 06:24] LABS: Venous Blood Gas Refer to POC result
[2021-09-19] MEDS: predniSONE 10 MG TABLET 30 MG PO (07:45)
[2021-09-19] MEDS: Chlorhexidine Gluc Oral Rinse 15 ML MOUTHWASH BUCCAL ×3 (07:45→21:58)
[2021-09-19] MEDS: metroNIDAZOLE/NS 500 MG/100 ML PIGGYBACK 100 MG IV ×3 (07:45→22:03)
[2021-09-19] MEDS: Albumin Human 25 % 100 ML IV ×3 (08:27→19:05)
[2021-09-19] MEDS: Furosemide 200 MG in 0.9 % Sodium Chloride 80 ML IVCONT (08:51)
[2021-09-19] MEDS: propofoL 1,000 MG/100 ML VIAL 12.77 MG IVCONT (10:27)
[2021-09-19] MEDS: Lactulose 20 GM/30 ML SOLUTION 30 GM PO ×3 (10:37→21:57)
--- NOTE | 2021-09-19 11:11 | MHC.CLN ---
F/U PT REMAINS INTUBATED AND SEDATED DISCUSSED AT ROUNDS RECOMMEND PROMOTE AT TRICKLE RATE 10ML/HR TO PROVIDE 240KCALS (577KCALS WITH SEDATION), 15G PROTEIN, 201CC FREE WATER FROM FORMULA LACTULOSE ORDERED R/T CHRONIC OBSTIPATION MONITOR TOLERANCE AND LYTES
--- NOTE | 2021-09-19 11:20 | CA_ITS ---
Transthoracic Echocardiogram Patient (Last, First, Middle): Amanda Maradiaga L Gender: Female Date of : 1950 Age: 71 Procedure Date: 09/19/2021 Procedure Type: Transthoracic Echocardiogram Location: ICU Height: 170.18 cm Weight: 106. kg BSA: 2.16 m2 Heart Rate: bpm BP: 112 / 72 mmHg Senior Publications Specialist: Referring MD: Beto Hernandez MD Symptoms: re-assess aortic stenosis Study Quality: Fair ECG Rhythm: Sinus with extra beats Conclusions: - Normal left ventricular size and systolic function. - Mildly increased right ventricular cavity size. There is normal right ventricular systolic function. - There is moderate aortic valve stenosis. The peak aortic velocity is 3.40 m/s. The mean gradient is 30 mmHg. The aortic valve area is 1.31 cm2. Stroke volume 118 ml. Findings Left Ventricle Normal left ventricular size and systolic function. There is moderately increased left ventricular wall thickness. The visually estimated ejection fraction is between 55-60%. There is no evidence of regional wall motion abnormalities. Right Ventricle Mildly increased right ventricular cavity size. There is normal right ventricular systolic function. Aortic Valve There is moderate calcification of the aortic valve. There is moderate thickening of the aortic valve. There is moderate aortic valve stenosis. The peak aortic velocity is 3.40 m/s. The mean gradient is 30 mmHg. The aortic valve area is 1.31 cm2. There is no aortic valve regurgitation. Mitral Valve The mitral valve appears normal. There is mild mitral valve regurgitation. There is no mitral valve stenosis. Tricuspid Valve Indeterminate right atrial pressure. Venous The inferior vena cava is dilated and does not collapse with inspiration. Pericardium/Pleural There is no evidence of pericardial effusion. Prior Study Comparison Changes noted compared to prior study dated: 09/16/2021. EF improved. Moderate as before. Measurements 2D Linear Measurements IVSd: 1.32 0.6-0.9/0.6-1.0 cm LVIDd: 5.38 3.9-5.3/4.2-5.9 cm LVIDd Index: 2.49 2.4-3.2/2.2-3.1 cm/m2 LVIDs: 3.54 2.0-3.6 cm LVPWd: 1.29 0.7-1.1 cm LV Mass: 368.54 67-162/88-224 g LV Mass Index: 170.62 43-95/49-115 g/m2 LVOT Diam: 2.10 3.0+(-)1.3 cm 2D Systolic Function EF 4C: 52.70 >55% EF 2C: 35.00 >55% Aortic Valve AoV Pk Trey: 3.40 AoV Mn Trey: 2.59 AoV VTI: 0.90 AoV Pk Grad: 46.00 Aov Mn Grad: 30.00 AMBAR Cont.VTI: 1.31 LVOT LVOT Pk Trey: 1.36 LVOT Mn Trey: 0.96 LVOT VTI: 0.34 LVOT Pk Grad: 7.00 LVOT Mn Grad: 4.00 LVOT Diam: 2.10 LVOT Area: 3.46 Tricuspid Valve TR Pk Trey: 2.49 TR Pk Grad: 25.00 Updated in Other Vendor System with Status of Final Sharif Muhammad MD electronically signed on 09/19/2021 4:37:36 PM with status of Final
--- NOTE | 2021-09-19 11:36 | P.PNCA_ITS ---
Subjective Subjective Date of Service: 09/19/21 Interval history: Patient is sedated and ventilated. She was started on low- dose dobutamine to assess the aortic valve. Physical Exam Vital Signs: Last Vital Signs Temp 97.3 F 09/19/21 08:00 Pulse 59 09/19/21 11:00 Resp 16 09/19/21 11:00 BP 136/57 L 09/19/21 11:00 Pulse Ox 95 09/19/21 11:00 Oxygen Flow Rate 4 09/09/21 22:09 BMI result Body Mass Index 36.6 GENERAL APPEARANCE: in no acute distress, sedated and ventilated. Arousable. NECK: No significant JVD. SKIN: no suspicious lesions, warm and dry. HEART: Systolic murmur aortic area. Feeble 2nd heart sound. On mechanical ventilation and auscultation is challenging. LUNGS: clear to auscultation anteriorly. ABDOMEN: soft, nontender. EXTREMITIES: no edema. PERIPHERAL PULSES: equal. Objective Labs and Meds Result diagrams: 09/19/21 05:13 09/19/21 05:13 Lab results: Laboratory Results - last 24 hr 09/18/21 09/19/21 09/19/21 19:59 05:13 05:13 WBC 7.2 RBC 3.19 L Hgb 9.1 L Hct 29.1 L MCV 91.2 MCH 28.5 MCHC 31.3 RDW 13.1 Plt Count 213 MPV 10.0 Immature Gran % (Auto) 1.7 H Neut % (Auto) 55.9 Lymph % (Auto) 30.7 [place] % (Auto) 9.4 Eos % (Auto) 2.2 Baso % (Auto) 0.1 Lymph # (Auto) 2.2 [place] # (Auto) 0.7 Eos # (Auto) 0.2 Baso # (Auto) 0.0 Abs Immat Gran (auto) 0.12 H Absolute Neuts (auto) 4.0 Absolute Nucleated RBC 0.000 Nucleated RBC % (auto) 0.0 VBG pH VBG pCO2 VBG pO2 VBG HCO3 VBG O2 Saturation VBG Base Excess Sodium 144 Potassium 4.0 Chloride 110 H Carbon Dioxide 28 Anion Gap 10 L BUN 14 Creatinine 0.60 Estim Creat Clear Calc 109.2 Estimated GFR > 60 Random Glucose 79 Calcium 8.0 L Phosphorus 2.7 Magnesium 2.5 B-Natriuretic Peptide Vancomycin Trough 20.8 H 09/19/21 09/19/21 05:13 05:13 WBC RBC Hgb Hct MCV MCH MCHC RDW Plt Count MPV Immature Gran % (Auto) Neut % (Auto) Lymph % (Auto) [place] % (Auto) Eos % (Auto) Baso % (Auto) Lymph # (Auto) [place] # (Auto) Eos # (Auto) Baso # (Auto) Abs Immat Gran (auto) Absolute Neuts (auto) Absolute Nucleated RBC Nucleated RBC % (auto) VBG pH 7.52 H VBG pCO2 37 VBG pO2 48 VBG HCO3 31 H VBG O2 Saturation 76.0 VBG Base Excess 8.0 Sodium Potassium Chloride Carbon Dioxide Anion Gap BUN Creatinine Estim Creat Clear Calc Estimated GFR Random Glucose Calcium Phosphorus Magnesium B-Natriuretic Peptide 895 H Vancomycin Trough Progress Note: A&P Assessment and plan (1) Acute on chronic respiratory failure with hypoxia and hypercapnia: Status: Acute (2) Aortic stenosis: Status: Acute Assessment and Plan: 71-year-old female with previous admissions with COPD exacerbation presenting with hypercapnia respiratory failure. She was intubated for airway protection. She has moderate severe aortic valve stenosis. Echocardiography performed few days ago is showing moderate to severe aortic valve stenosis. She has been on dobutamine as per the ICU team's plan and is getting repeat echocardiography today to see if her aortic valve is in fact severe because previous echocardiography has shown borderline low stroke volume. If in fact she has severe aortic valve stenosis then the questions is her candidacy for TAVR due to severe COPD. She had cardiac catheterization in 2018 which showed no significant coronary artery disease. We will review the echocardiogram. I think after the echo is done the dobutamine should be stopped. If echocardiogram shows severe aortic valve stenosis then we will need to discuss with family about their wishes and then she should be transferred to medical ICU at [facility] (due to advanced lung issues) and we can involve heart team to assess her for transcatheter aortic valve replacement candidacy. Thank you for allowing me to participate in the care of your patient. Please feel free to contact me if you have any questions. Fall Risk Details Current Medications: Current Medications Chlorhexidine Gluconate (Chlorhexidine Gluc Oral Rinse 15 Ml Mouthwash) 15 ml BUCCAL TID [facility] Last Admin: 09/19/21 07:45 Dose: 15 ml Documented by: Enoxaparin Sodium (Enoxaparin Sodium 40 Mg/0.4 Ml Syringe) 40 mg SUBCUT Q24H [facility] Last Admin: 09/19/21 02:35 Dose: 40 mg Documented by: Propofol (Diprivan) 1,000 mg in 100 mls @ 0 mls/hr IVCONT .Q0M [facility]; Protocol Last Titration: 09/19/21 10:36 Dose: 30 mcg/kg/min, 19.15 mls/hr Documented by: Metronidazole (Flagyl) 500 mg in 100 mls @ 100 mls/hr IV Q8H [facility] Last Infusion: 09/19/21 08:52 Dose: Infused Documented by: Dobutamine HCl/Dextrose (Dobutrex) 1,000 mg in 250 mls @ 0 mls/hr IVCONT .Q0M [facility]; Protocol Last Titration: 09/19/21 07:05 Dose: 1 mcg/kg/min, 1.6 mls/hr Documented by: Albumin Human (Kedbumin 25 %) 100 mls @ 100 mls/hr IV Q6H [facility] Stop: 09/20/21 03:14 Last Infusion: 09/19/21 09:27 Dose: Infused Documented by: Furosemide 200 mg/ Sodium (Chloride) 100 mls @ 1.5 mls/hr IVCONT .Q24H [facility] Last Admin: 09/19/21 08:51 Dose: 3 mg/hr, 1.5 mls/hr Documented by: Lactulose (Lactulose 20 Gm/30 Ml Solution) 30 gm PO TID [facility] Last Admin: 09/19/21 10:37 Dose: 30 gm Documented by: Levothyroxine Sodium (Levothyroxine Sodium 150 Mcg Tablet) 150 mcg PO DAILY@0600 [facility] Last Admin: 09/19/21 06:09 Dose: Not Given Documented by: Time Spent With Patient Time: Total time spent is greater than 50% in coordination of care (as documented) at patient's floor/unit and/or counseling patient: Time with patient: Greater than 35 minutes Progress Note: Quality Stroke Does the patient have a stroke diagnosis?: No Procedures Date of Service Date of Service: 09/19/21
--- NOTE | 2021-09-19 12:02 | PM.CCPN ---
Subjective Subjective Date of Service: 09/19/21 Interval History: 71-year-old lady with underlying history of COPD, recent CVA, CAD, diastolic congestive heart failure, bifascicular block, aortic wall stenosis, supplemental oxygen dependent, obesity, obstructive sleep apnea with obesity hypoventilation syndrome intolerant of CPAP admitted on 09/10/2021 with acute on chronic hypoxic and hypercapnic respiratory failure requiring intubation and ventilatory support. Treated for multifocal pneumonia, COPD and CHF exacerbation. Extubated on 09/11/2021 . Patient required re-intubation 09/16/2021 for acute onset of pulmonary edema. She remains and ventilatory support with concern for critical aortic stenosis. No events overnight. Critical Care Time (minutes): 60 Physical Exam Vital Signs: Vital Signs: Last Vital Signs Temp 97.3 F 09/19/21 08:00 Pulse 102 H 09/19/21 11:42 Resp 16 09/19/21 11:00 BP 136/57 L 09/19/21 11:00 Pulse Ox 95 09/19/21 11:00 Oxygen Flow Rate 4 09/09/21 22:09 BMI result Body Mass Index 36.6 Const: General: no acute distress and other ( Sedated on the vent, wakes up with sedation vacation) Eyes: Sclerae: sclerae normal EOM: EOMs intact bilaterally Neck: Neck: Yes no lymphadenopathy, Yes trachea midline and Yes supple Resp: Auscultation: crackles ( mild diffuse) Cardio: Rate: bradycardic Rhythm: regular rhythm Heart sounds: no gallops, no murmurs and no rubs GI: Palpation (GI): Soft to palpation and Other GI palpation findings present ( Nontender) Auscultation: normal bowel sounds Extrem: General: Yes no pedal edema, No clubbing, No cyanosis and Yes pedal edema ( trace bilateral) Objective Data Labs CBC & Chem 7: 09/19/21 05:13 09/19/21 05:13 Labs: Laboratory Results - last 24 hr 09/18/21 09/19/21 09/19/21 19:59 05:13 05:13 WBC 7.2 RBC 3.19 L Hgb 9.1 L Hct 29.1 L MCV 91.2 MCH 28.5 MCHC 31.3 RDW 13.1 Plt Count 213 MPV 10.0 Immature Gran % (Auto) 1.7 H Neut % (Auto) 55.9 Lymph % (Auto) 30.7 [place] % (Auto) 9.4 Eos % (Auto) 2.2 Baso % (Auto) 0.1 Lymph # (Auto) 2.2 [place] # (Auto) 0.7 Eos # (Auto) 0.2 Baso # (Auto) 0.0 Abs Immat Gran (auto) 0.12 H Absolute Neuts (auto) 4.0 Absolute Nucleated RBC 0.000 Nucleated RBC % (auto) 0.0 VBG pH VBG pCO2 VBG pO2 VBG HCO3 VBG O2 Saturation VBG Base Excess Sodium 144 Potassium 4.0 Chloride 110 H Carbon Dioxide 28 Anion Gap 10 L BUN 14 Creatinine 0.60 Estim Creat Clear Calc 109.2 Estimated GFR > 60 Random Glucose 79 Calcium 8.0 L Phosphorus 2.7 Magnesium 2.5 B-Natriuretic Peptide Vancomycin Trough 20.8 H 09/19/21 09/19/21 05:13 05:13 WBC RBC Hgb Hct MCV MCH MCHC RDW Plt Count MPV Immature Gran % (Auto) Neut % (Auto) Lymph % (Auto) [place] % (Auto) Eos % (Auto) Baso % (Auto) Lymph # (Auto) [place] # (Auto) Eos # (Auto) Baso # (Auto) Abs Immat Gran (auto) Absolute Neuts (auto) Absolute Nucleated RBC Nucleated RBC % (auto) VBG pH 7.52 H VBG pCO2 37 VBG pO2 48 VBG HCO3 31 H VBG O2 Saturation 76.0 VBG Base Excess 8.0 Sodium Potassium Chloride Carbon Dioxide Anion Gap BUN Creatinine Estim Creat Clear Calc Estimated GFR Random Glucose Calcium Phosphorus Magnesium B-Natriuretic Peptide 895 H Vancomycin Trough Microbiology Microbiology Results: Microbiology 09/14/21 08:55 Blood - Venous Blood Culture - Final No growth after 5 days. 09/17/21 07:32 Sputum - Suctioned Gram Stain - Final 09/17/21 07:32 Sputum - Suctioned Sputum Culture - Preliminary Yeast 09/14/21 10:10 Catheter Tip - Cvp Catheter Tip Culture - Final 09/12/21 05:20 Blood - Venous Blood Culture - Final No growth after 5 days. 09/12/21 05:32 Blood - Venous Blood Culture - Final No growth after 5 days. 09/14/21 08:46 Blood - Venous Blood Culture - Final Coag negative Staphylococcus 09/09/21 22:41 Blood - Venous Blood Culture - Final No growth after 5 days. 09/09/21 22:41 Blood - Venous Blood Culture - Final Coag negative Staphylococcus 09/10/21 05:00 Sputum - Suctioned Gram Stain - Final 09/10/21 05:00 Sputum - Suctioned Sputum Culture - Final No growth. 09/10/21 00:00 Urine Catheterized - Stanford Catheter Urine Culture - Final Enterococcus faecalis Progress Note: A&P Assessment and plan (1) Aortic stenosis: Status: Acute (2) Cerebral infarction: Status: Acute (3) Acute on chronic diastolic (congestive) heart failure: Status: Acute (4) Acute on chronic respiratory failure with hypoxia and hypercapnia: Status: Acute (5) COPD (chronic obstructive pulmonary disease): Status: Acute (6) DHEERAJ (obstructive sleep apnea): Status: Acute Assessment and Plan: Assessment: 71-year-old lady with multiple medical issues admitted with dyspnea and metabolic encephalopathy secondary to CO2 narcosis secondary to acute on chronic hypoxic and hypercapnic respiratory failure requiring ventilatory support, now with failure to wean, and concern for critical aortic stenosis Plan: Neuro: No acute issues. Cardiac: underlying chronic diastolic congestive heart failure. With concern for critical aortic stenosis. Repeat echo to assess aortic valve stenosis is pending. Cardiology service care is appreciated. Pulmonary: Acute on chronic hypoxic and hypercapnic respiratory failure with failure to wean from ventilatory support, may require tracheostomy. Renal: No acute issues. Endo: No acute issues. GI: Constipation, will try p.o. lactulose. ID: No acute issues Heme/Onc: No acute issues. Psych: No acute issues. Miscellaneous: No acute issues. Prophylaxis: famotidine, Lovenox Diet: tube feeds Critical care time spent: 60 minutes Quality Stroke Does the patient have a stroke diagnosis?: No VTE Prior VTE?: No VTE Risk Level:: Medical - moderate - high VTE Device Contraindication: N/A - Device Ordered VTE Drug Contraindication: N/A - Med Ordered
--- NOTE | 2021-09-19 14:51 | MHC.CM.PN ---
Pt remains intubated in ICU with end stage COPD (active heavy smoker) MD will hold another discussion with pt's son and dtr (HCP) about goals of care and likely trach/peg needs. CM will await determination of care plan to modify referrals. At this time, pt has been re-referred to [facility].
--- NOTE | 2021-09-19 18:38 | PC.NURSE ---
SINCE PT IS STILL UNABLE TO HAVE A COMPLETE BM LACTULOSE TID ORDERED AND ADMINISTERED POST MORNING ROUNDS. ALSO STARTED TUBE FEEDS PROMOTE 10 ML/HR - TOLERATING WELL. AT 1800 COPIOUS LARGE, THICK PASTY/LIQUID BM.
[2021-09-19 20:28] LABS: Vancomycin Trough 13.8 mcg/mL (10.0-20.0)
--- NOTE | 2021-09-19 21:08 | W.PM.IDCN ---
History of Present Illness Data of Consult Service Date: 09/19/21 Requesting physician: Kamini Proctor Primary Care Provider: MD YUMIKO Lee Reason for consult: yeast in sputum She presents with shortness of breath acute respiratory failure on 09/10/21. She has COPD and chronic hypoxia. She was extubated on 09/11 and then reintubated on 09/16. She has and pulmonary edema. Review of Systems Review of Systems: Yes unobtainable due to endotracheal tube PMFSH Past Medical History Medical History Atherosclerotic cardiovascular disease Atrial arrhythmia Bifascicular block Chronic diastolic (congestive) heart failure COPD (chronic obstructive pulmonary disease) COPD (chronic obstructive pulmonary disease) Enuresis Nonrheumatic aortic (valve) stenosis On home oxygen therapy DHEERAJ (obstructive sleep apnea) Respiratory failure with hypoxia and hypercapnia Thoracic aortic aneurysm (TAA) Urge incontinence Family History Family History Father No problems noted. Mother No problems noted. Family history: reviewed and not pertinent Surgical History Surgical History History of umbilical hernia repair Social History Social History Household Members: Children Housing: Apartment Housing Other:: lives alone - unsure if house or apt Do you presently have visiting nurse or other home services: No (unknown) Unable to assess alcohol history related to: Unable to respond Alcohol intake: never Patient Tobacco Use Status: Current everyday Tobacco user Use of substances other than those prescribed or required for medical reasons: Unable to respond Currently Displaying Signs/Symptoms of Drug Intoxication Withdrawal: No Advance Directives: Yes Advance Directives on File: Yes Advance Directives Date on File: 05/25/21 Do you have thoughts of harming others: None Do you have a plan to hurt others: No Plan Recently lost weight without trying: Unsure service: No Current occupational status: disabled Meds Allergies Allergy/AdvReac Type Severity Reaction Status Date / Time morphine [Morphine] Allergy Unknown UNKNOWN Verified 05/25/21 12:58 Active Medications: Current Medications Chlorhexidine Gluconate (Chlorhexidine Gluc Oral Rinse 15 Ml Mouthwash) 15 ml BUCCAL TID GERMAN Last Admin: 09/19/21 14:57 Dose: 15 ml Documented by: Enoxaparin Sodium (Enoxaparin Sodium 40 Mg/0.4 Ml Syringe) 40 mg SUBCUT Q24H [facility] Last Admin: 09/19/21 02:35 Dose: 40 mg Documented by: Famotidine (Famotidine/Pf 20 Mg/2 Ml Vial) 20 mg IVPUSH DAILY GERMAN Propofol (Diprivan) 1,000 mg in 100 mls @ 0 mls/hr IVCONT .Q0M GERMAN; Protocol Last Titration: 09/19/21 19:20 Dose: 35 mcg/kg/min, 22.34 mls/hr Documented by: Metronidazole (Flagyl) 500 mg in 100 mls @ 100 mls/hr IV Q8H [facility] Last Infusion: 09/19/21 15:57 Dose: Infused Documented by: Dobutamine HCl/Dextrose (Dobutrex) 1,000 mg in 250 mls @ 0 mls/hr IVCONT .Q0M GERMAN; Protocol Last Titration: 09/19/21 14:00 Dose: Infused Documented by: Albumin Human (Kedbumin 25 %) 100 mls @ 100 mls/hr IV Q6H [facility] Stop: 09/20/21 03:14 Last Infusion: 09/19/21 20:19 Dose: Infused Documented by: Furosemide 200 mg/ Sodium (Chloride) 100 mls @ 1.5 mls/hr IVCONT .Q24H [facility] Last Admin: 09/19/21 08:51 Dose: 3 mg/hr, 1.5 mls/hr Documented by: Lactulose (Lactulose 20 Gm/30 Ml Solution) 30 gm PO TID [facility] Last Admin: 09/19/21 14:57 Dose: 30 gm Documented by: Levothyroxine Sodium (Levothyroxine Sodium 150 Mcg Tablet) 150 mcg PO DAILY@0600 [facility] [place] Last Admin: 09/19/21 06:09 Dose: Not Given Documented by: Home Medications Medication Instructions Recorded Confirmed Last Taken Type atorvastatin 40 mg tablet 40 mg PO BEDTIME tab 08/19/20 09/11/21 09/09/21 History diltiazem HCl 120 mg 120 mg PO BID cap 08/19/20 09/11/21 09/09/21 History capsule,extended release 12 hr ipratropium 0.5 mg-albuterol 3 mg 3 ml INHALATION BID 08/30/20 09/11/21 09/09/21 History (2.5 mg base)/3 mL nebulization soln clonazepam 0.5 mg tablet 0.25 mg PO BEDTIME PRN tab 10/04/20 09/11/21 08/21/21 History dicyclomine 10 mg capsule 10 mg PO TIDWM cap 10/04/20 09/11/21 09/02/21 History levothyroxine 175 mcg tablet 175 mcg PO DAILY@0630 tab 10/04/20 09/11/21 08/21/21 History omeprazole 20 mg capsule,delayed 20 mg PO DAILY@0630 cap 10/04/20 09/11/21 09/09/21 History release lactulose 10 gram/15 mL oral 15 ml PO BID PRN 10/25/20 09/11/21 08/21/21 History solution furosemide 20 mg tablet 40 mg PO BID@0900,1700 tab 11/30/20 09/11/21 09/09/21 History cyanocobalamin (vitamin B-12) 1,000 mcg IM Q30D 03/31/21 09/11/21 08/21/21 History 1,000 mcg/mL injection solution gabapentin 300 mg capsule 300 mg PO BEDTIME 03/31/21 09/11/21 09/09/21 History aspirin 81 mg chewable tablet 81 mg PO DAILY 05/25/21 09/11/21 09/09/21 History fluticasone furoate 200 1 inh INHALATION BEDTIME 05/25/21 09/11/21 09/09/21 History mcg-vilanterol 25 mcg/dose inhalation powder (Breo Ellipta) oxybutynin chloride 15 mg 15 mg PO BID 05/25/21 09/11/21 09/09/21 History tablet,extended release 24 hr apixaban 2.5 mg tablet 2.5 mg PO BID 09/11/21 09/11/21 09/09/21 History buspirone 7.5 mg tablet 1 tab PO BID 09/11/21 09/11/21 09/09/21 History tiotropium bromide 18 mcg capsule 1 cap INHALATION DAILY 09/11/21 09/11/21 09/09/21 History with inhalation device (Spiriva with HandiHaler) trazodone 50 mg tablet 0.5 tab PO BEDTIME PRN 09/11/21 09/11/21 Unknown History vilazodone 40 mg tablet (Viibryd) 1 tab PO DAILY 09/11/21 09/11/21 09/09/21 History Physical Exam Vital Signs: Vital Signs: Last Vital Signs Temp 97.2 F 09/19/21 15:59 Pulse 57 09/19/21 20:00 Resp 16 09/19/21 20:00 BP 138/91 H 09/19/21 20:00 Pulse Ox 95 09/19/21 20:00 Oxygen Flow Rate 4 09/09/21 22:09 BMI result Body Mass Index 36.6 Const: General: cooperative Eyes: Pupils: Equal, round and reactive pupils present Resp: Effort & Inspection: normal respiratory effort Cardio: Rate: regular rate Rhythm: regular rhythm GI: Palpation (GI): Soft to palpation and nontender Skin: General skin exam: no rashes or lesions noted Neuro: Cranial nerves: Yes Equal, round and reactive pupils present Results Labs CBC & Chem 7: 09/19/21 05:13 09/19/21 05:13 Labs: Short CBC 09/19/21 Range/Units 05:13 WBC 7.2 (4.8-10.8) X10*3/uL Hgb 9.1 L (12.0-16.0) g/dl Hct 29.1 L (37.0-47.0) % Plt Count 213 (160-400) X10*3/uL BMP 09/19/21 05:13 Sodium 144 Potassium 4.0 Chloride 110 H Carbon Dioxide 28 BUN 14 Creatinine 0.60 Calcium 8.0 L Microbiology Microbiology Results: Microbiology 09/14/21 08:55 Blood - Venous Blood Culture - Final No growth after 5 days. 09/17/21 07:32 Sputum - Suctioned Gram Stain - Final 09/17/21 07:32 Sputum - Suctioned Sputum Culture - Preliminary Yeast 09/14/21 10:10 Catheter Tip - Cvp Catheter Tip Culture - Final 09/12/21 05:20 Blood - Venous Blood Culture - Final No growth after 5 days. 09/12/21 05:32 Blood - Venous Blood Culture - Final No growth after 5 days. 09/14/21 08:46 Blood - Venous Blood Culture - Final Coag negative Staphylococcus 09/09/21 22:41 Blood - Venous Blood Culture - Final No growth after 5 days. 09/09/21 22:41 Blood - Venous Blood Culture - Final Coag negative Staphylococcus 09/10/21 05:00 Sputum - Suctioned Gram Stain - Final 09/10/21 05:00 Sputum - Suctioned Sputum Culture - Final No growth. 09/10/21 00:00 Urine Catheterized - [facility] Catheter Urine Culture - Final Enterococcus faecalis Assessment and Plan (1) Aortic stenosis: Status: Acute (2) Acute respiratory failure: Status: Acute She has respiratory failure due to COPD and possible chemical aspiration There is not likely infection at this time Yeast likely commensal colonizer There is no bacteremia Suggest Would hold antifungals and stop metronidazole
[2021-09-19] MEDS: fentaNYL citrate/PF 100 MCG/2 ML VIAL IVPUSH (22:55)
[2021-09-19] MEDS: propofoL 1,000 MG/100 ML VIAL 22.34 MG IVCONT (22:57)
[2021-09-20] VITALS (33 sets, daily range): BP systolic 94–144; BP diastolic 50–81; PULSE 43–117; RESP 14–27; TEMP 33.9–37.3; O2SAT 4–100; BMI 34.8
--- NOTE | 2021-09-20 00:47 | PC.NURSE ---
Around 0000 pt given 100 mcg fentanyl for increased agitation and restlessness with good effect. Pt sinus chauncey on tele in 50s with bundle and frequent pacs. Pt hr frequently dropping to 30-40s, [facility] aware.
[2021-09-20] MEDS: Albumin Human 25 % 100 ML IV (01:30)
[2021-09-20] MEDS: Enoxaparin Sodium 40 MG/0.4 ML SYRINGE SUBCUT (01:30)
[2021-09-20] MEDS: propofoL 1,000 MG/100 ML VIAL 19.15 MG IVCONT ×2 (03:27→09:32)
[2021-09-20] MEDS: Levothyroxine Sodium 150 MCG TABLET PO (05:22)
[2021-09-20 05:29] LABS: VBG Base Excess 9.7 mmol/L; VBG HCO3 31 mmol/L (22-26); VBG pCO2 33 mmHg; VBG pH 7.58 (7.32-7.43); VBG pO2 44 mmHg
[2021-09-20 05:31] LABS: Venous Blood Gas Refer to POC result
[2021-09-20 06:00] LABS: MANUAL DIFF FLAG NO
[2021-09-20 06:04] LABS: Basophils Percent Auto 0.1 % (0-2); Eosinophils Absolute Auto 0.2 X10*3/uL (0.0-0.4); Eosinophils Percent Auto 2.1 % (0-4); Hematocrit 28.7 % (37.0-47.0); Imm Gran Abs Auto 0.09 X10*3/uL (0.00-0.03); Imm Gran Pct Auto 1.2 % (0.0-0.4); Lymphocytes Absolute Auto 2.1 X10*3/uL (1.2-4.9); Lymphocytes Percent Auto 27.6 % (20-40); Mean Corpuscular HGB Conc 31.4 g/dl (31.0-35.0); Mean Corpuscular Hemoglobin 28.8 pg (27.0-33.0); Mean Platelet Volume 9.8 fL (9.4-12.3); Monocytes Absolute Auto 0.6 X10*3/uL (0.1-1.2); Monocytes Percent Auto 8.4 % (2-11); Neutrophils Absolute Auto 4.6 x10*3/uL (2.0-8.3); Neutrophils Percent Auto 60.6 % (45-73); Platelet Count 206 X10*3/uL (160-400); Red Blood Count 3.12 X10*6/uL (4.20-5.50); Red Cell Distribution Width 13.3 % (11.0-16.0); White Blood Count 7.5 X10*3/uL (4.8-10.8)
[2021-09-20 06:43] LABS: Alanine Aminotransferase 37 U/L (0-31); Albumin Level 3.9 g/dL (3.5-5.0); Alkaline Phosphatase 50 U/L (39-117); Anion Gap 13 (12-20); Aspartate Amino Transferase 51 U/L (5-31); Bilirubin Total 0.7 mg/dL (0.0-1.0); Blood Urea Nitrogen 9 mg/dL (9-16); Calcium 8.6 mg/dL (8.4-10.2); Carbon Dioxide 30 mmol/L (22-29); Chloride 107 mmol/L (96-108); Creatinine Clr Calc Pharmacy 95.3; Estimated Glomerular Filt Rate > 60; Glucose Random 84 mg/dL (60-115); Magnesium 2.3 mg/dL (1.6-2.6); Phosphorus 3.1 mg/dL (2.7-4.5); Potassium 2.7 mmol/L (3.3-5.1); Sodium 147 mmol/L (135-145); Total Protein 5.7 g/dL (6.5-8.0)
[2021-09-20] MEDS: Chlorhexidine Gluc Oral Rinse 15 ML MOUTHWASH BUCCAL ×2 (09:22→21:33)
[2021-09-20] MEDS: Famotidine/PF 20 MG/2 ML VIAL IVPUSH (09:22)
[2021-09-20] MEDS: Furosemide 200 MG in 0.9 % Sodium Chloride 80 ML IVCONT (09:22)
[2021-09-20] MEDS: Potassium Chloride/H20 40 MEQ/100 ML PIGGYBACK 100 MEQ IV ×3 (09:22→12:30)
[2021-09-20] MEDS: Haloperidol Lactate 5 MG/ML VIAL IV (10:54)
--- NOTE | 2021-09-20 10:55 | PM.PNCARD ---
Subjective Subjective Date of Service: 09/20/21 Interval history: Patient seen at bedside. Agitated and confused after extubation. Echocardiography from yesterday has shown moderate aortic valve stenosis while she was on dobutamine. Physical Exam Vital Signs: Last Vital Signs Temp 99.1 F 09/20/21 10:00 Pulse 82 09/20/21 10:00 Resp 14 09/20/21 10:00 BP 118/72 09/20/21 10:00 Pulse Ox 98 09/20/21 10:00 Oxygen Flow Rate 4 09/09/21 22:09 BMI result Body Mass Index 34.8 Quite agitated and did not allow full physical examination. Abdomen soft nontender, equal radial pulses. Confused and agitated and did not let me finish examination. Objective Labs and Meds Result diagrams: 09/20/21 05:20 09/20/21 05:20 Lab results: Laboratory Results - last 24 hr 09/19/21 09/20/21 09/20/21 19:55 05:20 05:20 WBC 7.5 RBC 3.12 L Hgb 9.0 L Hct 28.7 L MCV 92.0 MCH 28.8 MCHC 31.4 RDW 13.3 Plt Count 206 MPV 9.8 Immature Gran % (Auto) 1.2 H Neut % (Auto) 60.6 Lymph % (Auto) 27.6 [place] % (Auto) 8.4 Eos % (Auto) 2.1 Baso % (Auto) 0.1 Lymph # (Auto) 2.1 [place] # (Auto) 0.6 Eos # (Auto) 0.2 Baso # (Auto) 0.0 Abs Immat Gran (auto) 0.09 H Absolute Neuts (auto) 4.6 Absolute Nucleated RBC 0.000 Nucleated RBC % (auto) 0.0 VBG pH VBG pCO2 VBG pO2 VBG HCO3 VBG O2 Saturation VBG Base Excess Sodium 147 H Potassium 2.7 L D Chloride 107 Carbon Dioxide 30 H Anion Gap 13 BUN 9 Creatinine 0.67 Estim Creat Clear Calc 95.3 Estimated GFR > 60 Random Glucose 84 Calcium 8.6 D Phosphorus 3.1 Magnesium 2.3 Total Bilirubin 0.7 AST 51 H ALT 37 H Alkaline Phosphatase 50 D Total Protein 5.7 L Albumin 3.9 D Vancomycin Trough 13.8 09/20/21 05:23 WBC RBC Hgb Hct MCV MCH MCHC RDW Plt Count MPV Immature Gran % (Auto) Neut % (Auto) Lymph % (Auto) [place] % (Auto) Eos % (Auto) Baso % (Auto) Lymph # (Auto) [place] # (Auto) Eos # (Auto) Baso # (Auto) Abs Immat Gran (auto) Absolute Neuts (auto) Absolute Nucleated RBC Nucleated RBC % (auto) VBG pH 7.58 H VBG pCO2 33 VBG pO2 44 VBG HCO3 31 H VBG O2 Saturation 73.0 VBG Base Excess 9.7 Sodium Potassium Chloride Carbon Dioxide Anion Gap BUN Creatinine Estim Creat Clear Calc Estimated GFR Random Glucose Calcium Phosphorus Magnesium Total Bilirubin AST ALT Alkaline Phosphatase Total Protein Albumin Vancomycin Trough Progress Note: A&P Assessment and plan (1) Acute respiratory failure: Status: Acute (2) Aortic stenosis: Status: Acute Assessment and Plan: 71-year-old female with responded failure due to COPD. She has moderate aortic valve stenosis. Echocardiography done yesterday while she was on dobutamine has shown clear moderate aortic valve stenosis. No intervention is required for the valve at this stage. Please treat her further COPD and agitation. We will follow along as needed. Follow-up with Dr. Page after discharge. Signing off. Fall Risk Details Current Medications: Current Medications Enoxaparin Sodium (Enoxaparin Sodium 40 Mg/0.4 Ml Syringe) 40 mg SUBCUT Q24H ON LICENSE OF [facility] Last Admin: 09/20/21 01:30 Dose: 40 mg Documented by: Furosemide 200 mg/ Sodium (Chloride) 100 mls @ 1.5 mls/hr IVCONT .Q24H ON LICENSE OF [facility] Last Admin: 09/20/21 09:22 Dose: 3 mg/hr, 1.5 mls/hr Documented by: Potassium Chloride () 40 meq in 100 mls @ 100 mls/hr IV Q1H ON LICENSE OF [facility] Stop: 09/20/21 10:59 Last Admin: 09/20/21 09:22 Dose: 100 mls/hr Documented by: Lactulose (Lactulose 20 Gm/30 Ml Solution) 30 gm PO BID ON LICENSE OF [facility] Lamotrigine (Lamotrigine 25 Mg Tablet) 50 mg PO BID ON LICENSE OF [facility] Levothyroxine Sodium (Levothyroxine Sodium 150 Mcg Tablet) 150 mcg PO DAILY@0600 ON LICENSE OF [facility] Last Admin: 09/20/21 05:22 Dose: 150 mcg Documented by: Time Spent With Patient Time: Total time spent is greater than 50% in coordination of care (as documented) at patient's floor/unit and/or counseling patient: Time with patient: 15 - 24 minutes Progress Note: Quality Stroke Does the patient have a stroke diagnosis?: No Procedures Date of Service Date of Service: 09/20/21
--- NOTE | 2021-09-20 11:31 | P.PNCC_ITS ---
Subjective Subjective Date of Service: 09/20/21 Interval History: 71-year-old lady with underlying history of COPD, recent CVA, CAD, diastolic congestive heart failure, bifascicular block, aortic wall stenosis, supplemental oxygen dependent, obesity, obstructive sleep apnea with obesity hypoventilation syndrome intolerant of CPAP admitted on 09/10/2021 with acute on chronic hypoxic and hypercapnic respiratory failure requiring intubation and ventilatory support. Treated for multifocal pneumonia, COPD and CHF exacerbation. Extubated on 09/11/2021 . Patient required re-intubation 1 11/17/2020 for acute onset of pulmonary edema. 2D echocardiogram on dobutamine demonstrated moderate aortic stenosis. Patient was further diuresed and extubated on 09/20/2021. No events overnight. Critical Care Time (minutes): 45 Physical Exam Vital Signs: Vital Signs: Last Vital Signs Temp 99.1 F 09/20/21 10:00 Pulse 106 H 09/20/21 11:00 Resp 19 09/20/21 11:00 BP 118/72 09/20/21 10:00 Pulse Ox 98 09/20/21 10:00 Oxygen Flow Rate 4 09/09/21 22:09 BMI result Body Mass Index 34.8 Const: General: no acute distress, alert, awake and other ( Agitated) Eyes: Sclerae: sclerae normal EOM: EOMs intact bilaterally Neck: Neck: Yes no lymphadenopathy, Yes trachea midline and Yes supple Resp: Effort & Inspection: normal respiratory effort and no respiratory distress Auscultation: crackles ( bibasilar) Cardio: Rate: regular rate Rhythm: abnormal rhythm irregularly irregular Heart sounds: no gallops, no murmurs and no rubs GI: Palpation (GI): Soft to palpation and Other GI palpation findings present ( Nontender) Auscultation: normal bowel sounds Extrem: General: No clubbing, No cyanosis and Yes pedal edema ( trace bilateral) Objective Data Labs CBC & Chem 7: 09/20/21 05:20 09/20/21 05:20 Labs: Laboratory Results - last 24 hr 09/19/21 09/20/21 09/20/21 19:55 05:20 05:20 WBC 7.5 RBC 3.12 L Hgb 9.0 L Hct 28.7 L MCV 92.0 MCH 28.8 MCHC 31.4 RDW 13.3 Plt Count 206 MPV 9.8 Immature Gran % (Auto) 1.2 H Neut % (Auto) 60.6 Lymph % (Auto) 27.6 [place] % (Auto) 8.4 Eos % (Auto) 2.1 Baso % (Auto) 0.1 Lymph # (Auto) 2.1 [place] # (Auto) 0.6 Eos # (Auto) 0.2 Baso # (Auto) 0.0 Abs Immat Gran (auto) 0.09 H Absolute Neuts (auto) 4.6 Absolute Nucleated RBC 0.000 Nucleated RBC % (auto) 0.0 VBG pH VBG pCO2 VBG pO2 VBG HCO3 VBG O2 Saturation VBG Base Excess Sodium 147 H Potassium 2.7 L D Chloride 107 Carbon Dioxide 30 H Anion Gap 13 BUN 9 Creatinine 0.67 Estim Creat Clear Calc 95.3 Estimated GFR > 60 Random Glucose 84 Calcium 8.6 D Phosphorus 3.1 Magnesium 2.3 Total Bilirubin 0.7 AST 51 H ALT 37 H Alkaline Phosphatase 50 D Total Protein 5.7 L Albumin 3.9 D Vancomycin Trough 13.8 09/20/21 05:23 WBC RBC Hgb Hct MCV MCH MCHC RDW Plt Count MPV Immature Gran % (Auto) Neut % (Auto) Lymph % (Auto) [place] % (Auto) Eos % (Auto) Baso % (Auto) Lymph # (Auto) [place] # (Auto) Eos # (Auto) Baso # (Auto) Abs Immat Gran (auto) Absolute Neuts (auto) Absolute Nucleated RBC Nucleated RBC % (auto) VBG pH 7.58 H VBG pCO2 33 VBG pO2 44 VBG HCO3 31 H VBG O2 Saturation 73.0 VBG Base Excess 9.7 Sodium Potassium Chloride Carbon Dioxide Anion Gap BUN Creatinine Estim Creat Clear Calc Estimated GFR Random Glucose Calcium Phosphorus Magnesium Total Bilirubin AST ALT Alkaline Phosphatase Total Protein Albumin Vancomycin Trough Microbiology Microbiology Results: Microbiology 09/17/21 07:32 Sputum - Suctioned Gram Stain - Final 09/17/21 07:32 Sputum - Suctioned Sputum Culture - Final Beverly tropicalis 09/14/21 08:55 Blood - Venous Blood Culture - Final No growth after 5 days. 09/14/21 10:10 Catheter Tip - Cvp Catheter Tip Culture - Final 09/12/21 05:20 Blood - Venous Blood Culture - Final No growth after 5 days. 09/12/21 05:32 Blood - Venous Blood Culture - Final No growth after 5 days. 09/14/21 08:46 Blood - Venous Blood Culture - Final Coag negative Staphylococcus 09/09/21 22:41 Blood - Venous Blood Culture - Final No growth after 5 days. 09/09/21 22:41 Blood - Venous Blood Culture - Final Coag negative Staphylococcus 09/10/21 05:00 Sputum - Suctioned Gram Stain - Final 09/10/21 05:00 Sputum - Suctioned Sputum Culture - Final No growth. 09/10/21 00:00 Urine Catheterized - Stanford Catheter Urine Culture - Final Enterococcus faecalis Progress Note: A&P Assessment and plan (1) Aortic stenosis: Status: Acute (2) Agitation: Status: Acute (3) Cerebral infarction: Status: Acute (4) Acute on chronic diastolic (congestive) heart failure: Status: Acute (5) Acute on chronic respiratory failure with hypoxia and hypercapnia: Status: Acute (6) DHEERAJ (obstructive sleep apnea): Status: Acute Assessment and Plan: Assessment: 71-year-old lady with multiple medical issues admitted with dyspnea and metabolic encephalopathy secondary to CO2 narcosis secondary to acute on chronic hypoxic and hypercapnic respiratory failure requiring ventilatory support, now with failure to wean, and concern for critical aortic stenosis Plan: Neuro: No acute issues. Cardiac: underlying chronic diastolic congestive heart failure. aortic stenosis moderate on dobutamine echo. Cardiology service care is appreciated. will continue with diuresis Pulmonary: Acute on chronic hypoxic and hypercapnic respiratory failure with initial failure to wean from ventilatory support, may require tracheostomy. extubated 09/20/2021. Renal: No acute issues. Endo: No acute issues. GI: Constipation, improving on lactulose. ID: No acute issues Heme/Onc: No acute issues. Psych: No acute issues. Miscellaneous: No acute issues. Prophylaxis: famotidine, Lovenox Diet: pending swallow evaluation Critical care time spent: 45 minutes Quality Stroke Does the patient have a stroke diagnosis?: No VTE Prior VTE?: No VTE Risk Level:: Medical - moderate - high VTE Device Contraindication: N/A - Device Ordered VTE Drug Contraindication: N/A - Med Ordered
[2021-09-20] MEDS: lamoTRIgine 25 MG TABLET 50 MG PO ×2 (11:38→21:33)
--- NOTE | 2021-09-20 13:15 | MHC.CM.PN ---
Pt extubated today and is on nasal cannula O2. has been classified as moderate and not in need of urgent intervention. Goals of care are for a continuation on n/c and eventual PT eval for home vs STR placement. Pt has been referred to [facility] where she had recently been. CM to follow for changes in d/c plan. HCP on file: pt had been living with her son who provides most of pt's care. Pt's dtr, Suzan, is the HCP on file.
[2021-09-20] MEDS: Furosemide 20 MG/2 ML VIAL IVPUSH (13:22)
[2021-09-20] MEDS: propofoL 1,000 MG/100 ML VIAL 18.16 MG IVCONT ×2 (13:53→17:43)
--- NOTE | 2021-09-20 13:53 | W.PM.CCHP ---
Procedures Date of Service Date of Service: 09/20/21 Intubation Intubation Comments: Patient with rapid desaturation resulting in hypoxemia refractory to high-flow oxygen support, emergently reintubated with 7.5 cuffed ET tube under glide scope guidance with no immediate complications. Upon intubation large amount of thin secretions suctioned through the ET tube. ET tube position verified with chest x-ray.
[2021-09-20] MEDS: propofoL 200 MG/20 ML VIAL 100 MG IVPUSH (13:54)
[2021-09-20 18:57] LABS: Anion Gap 18 (12-20); Blood Urea Nitrogen 8 mg/dL (9-16); Calcium 8.8 mg/dL (8.4-10.2); Carbon Dioxide 27 mmol/L (22-29); Chloride 106 mmol/L (96-108); Creatinine Clr Calc Pharmacy 86.3; Estimated Glomerular Filt Rate > 60; Glucose Random 91 mg/dL (60-115); Potassium 3.9 mmol/L (3.3-5.1); Sodium 147 mmol/L (135-145)
[2021-09-20] MEDS: Lactulose 20 GM/30 ML SOLUTION 30 GM PO (21:32)
[2021-09-20] MEDS: propofoL 1,000 MG/100 ML VIAL 12.11 MG IVCONT (22:32)
[2021-09-21] VITALS (34 sets, daily range): BP systolic 82–142; BP diastolic 42–75; PULSE 49–110; RESP 16–26; TEMP 35–37.3; O2SAT 94–100; BMI 33.0
[2021-09-21] MEDS: Enoxaparin Sodium 40 MG/0.4 ML SYRINGE SUBCUT (02:10)
[2021-09-21] MEDS: propofoL 1,000 MG/100 ML VIAL 12.11 MG IVCONT (05:27)
[2021-09-21] MEDS: Levothyroxine Sodium 150 MCG TABLET PO (05:27)
[2021-09-21 05:46] LABS: MANUAL DIFF FLAG NO
[2021-09-21 05:47] LABS: VBG Base Excess 8.1 mmol/L; VBG HCO3 30 mmol/L (22-26); VBG pCO2 32 mmHg; VBG pH 7.57 (7.32-7.43); VBG pO2 39 mmHg
[2021-09-21 06:03] LABS: Basophils Percent Auto 0.3 % (0-2); Eosinophils Absolute Auto 0.4 X10*3/uL (0.0-0.4); Eosinophils Percent Auto 3.6 % (0-4); Hematocrit 35.7 % (37.0-47.0); Hemoglobin 11.1 g/dl (12.0-16.0); Imm Gran Abs Auto 0.18 X10*3/uL (0.00-0.03); Imm Gran Pct Auto 1.5 % (0.0-0.4); Lymphocytes Absolute Auto 1.4 X10*3/uL (1.2-4.9); Lymphocytes Percent Auto 11.7 % (20-40); Mean Corpuscular HGB Conc 31.1 g/dl (31.0-35.0); Mean Corpuscular Hemoglobin 28.5 pg (27.0-33.0); Mean Corpuscular Volume 91.8 fL (80.0-98.0); Mean Platelet Volume 9.4 fL (9.4-12.3); Monocytes Absolute Auto 0.8 X10*3/uL (0.1-1.2); Monocytes Percent Auto 6.7 % (2-11); Neutrophils Percent Auto 76.2 % (45-73); Platelet Count 284 X10*3/uL (160-400); Red Blood Count 3.89 X10*6/uL (4.20-5.50); Red Cell Distribution Width 13.3 % (11.0-16.0); White Blood Count 11.9 X10*3/uL (4.8-10.8)
[2021-09-21 06:04] LABS: Anion Gap 17 (12-20); Blood Urea Nitrogen 7 mg/dL (9-16); Carbon Dioxide 28 mmol/L (22-29); Chloride 105 mmol/L (96-108); Creatinine Clr Calc Pharmacy 80.6; Estimated Glomerular Filt Rate > 60; Glucose Random 117 mg/dL (60-115); Magnesium 2.3 mg/dL (1.6-2.6); Phosphorus 3.8 mg/dL (2.7-4.5); Potassium 3.5 mmol/L (3.3-5.1); Sodium 146 mmol/L (135-145)
[2021-09-21 06:37] LABS: Venous Blood Gas Refer to POC result
[2021-09-21] MEDS: Famotidine/PF 20 MG/2 ML VIAL IVPUSH (09:11)
[2021-09-21] MEDS: Potassium Chloride/H20 40 MEQ/100 ML PIGGYBACK 100 MEQ IV (09:11)
[2021-09-21] MEDS: Lactulose 20 GM/30 ML SOLUTION 30 GM PO ×2 (09:11→19:41)
[2021-09-21] MEDS: Furosemide 200 MG in 0.9 % Sodium Chloride 80 ML IVCONT (09:14)
--- NOTE | 2021-09-21 10:14 | MHC.CLN ---
F/U PT RE-INTUBATED AND SEDATED RECOMMEND INCREASING PROMOTE TO GOAL RATE 60ML/HR WITH 240CC FREE WATER Q SHIFT TO PROVIDE 1440KCALS (1777KCALS WITH SEDATION; 23KCALS/KG), 90G PROTEIN (1.2G/KG), 1928CC TOTAL FREE WATER FROM FORMULA AND FLUSHES (25ML/KG) MONITOR TOLERANCE, RESIDUALS AND LYTES
--- NOTE | 2021-09-21 11:12 | PM.CCPN ---
Subjective Subjective Date of Service: 09/21/21 Interval History: 71-year-old lady with underlying history of COPD, recent CVA, CAD, diastolic congestive heart failure, bifascicular block, aortic wall stenosis, supplemental oxygen dependent, obesity, obstructive sleep apnea with obesity hypoventilation syndrome intolerant of CPAP admitted on 09/10/2021 with acute on chronic hypoxic and hypercapnic respiratory failure requiring intubation and ventilatory support. Treated for multifocal pneumonia, COPD and CHF exacerbation. Extubated on 09/11/2021 . Patient required re-intubation 09/16/2021 for acute onset of pulmonary edema. 2D echocardiogram on dobutamine demonstrated moderate aortic stenosis. Patient was further diuresed and extubated on 09/20/2021,, however patient developed acute hypoxia secondary to pulmonary aspiration requiring re-intubation within 4 hours. No events overnight. Critical Care Time (minutes): 45 Physical Exam Vital Signs: Vital Signs: Last Vital Signs Temp 99.2 F 09/21/21 08:13 Pulse 101 H 09/21/21 10:00 Resp 16 09/21/21 10:00 BP 125/49 L 09/21/21 10:00 Pulse Ox 95 09/21/21 10:00 Oxygen Flow Rate 4 09/09/21 22:09 BMI result Body Mass Index 33.0 Const: General: no acute distress and other ( Sedated on the vent) Eyes: Sclerae: sclerae normal EOM: EOMs intact bilaterally Neck: Neck: Yes no lymphadenopathy, Yes trachea midline and Yes supple Resp: Effort & Inspection: normal respiratory effort and no respiratory distress Auscultation: clear to auscultation bilaterally Cardio: Rate: regular rate Rhythm: regular rhythm Heart sounds: no gallops, no murmurs and no rubs GI: Palpation (GI): Soft to palpation and Other GI palpation findings present ( Nontender) Auscultation: normal bowel sounds Extrem: General: No clubbing, No cyanosis and Yes pedal edema ( trace bilateral) Objective Data Labs CBC & Chem 7: 09/21/21 05:37 09/21/21 05:37 Labs: Laboratory Results - last 24 hr 09/20/21 09/21/21 09/21/21 18:15 05:37 05:37 WBC 11.9 H RBC 3.89 L D Hgb 11.1 L D Hct 35.7 L D MCV 91.8 MCH 28.5 MCHC 31.1 RDW 13.3 Plt Count 284 D MPV 9.4 Immature Gran % (Auto) 1.5 H Neut % (Auto) 76.2 H Lymph % (Auto) 11.7 L [place] % (Auto) 6.7 Eos % (Auto) 3.6 Baso % (Auto) 0.3 Lymph # (Auto) 1.4 [place] # (Auto) 0.8 Eos # (Auto) 0.4 Baso # (Auto) 0.0 Abs Immat Gran (auto) 0.18 H Absolute Neuts (auto) 9.0 H Absolute Nucleated RBC 0.000 Nucleated RBC % (auto) 0.0 VBG pH VBG pCO2 VBG pO2 VBG HCO3 VBG O2 Saturation VBG Base Excess Sodium 147 H 146 H Potassium 3.9 D 3.5 Chloride 106 105 Carbon Dioxide 27 28 Anion Gap 18 17 BUN 8 L 7 L Creatinine 0.74 0.77 Estim Creat Clear Calc 86.3 80.6 Estimated GFR > 60 > 60 Random Glucose 91 117 H Calcium 8.8 9.0 Phosphorus 3.8 Magnesium 2.3 Albumin 4.0 09/21/21 05:42 WBC RBC Hgb Hct MCV MCH MCHC RDW Plt Count MPV Immature Gran % (Auto) Neut % (Auto) Lymph % (Auto) [place] % (Auto) Eos % (Auto) Baso % (Auto) Lymph # (Auto) [place] # (Auto) Eos # (Auto) Baso # (Auto) Abs Immat Gran (auto) Absolute Neuts (auto) Absolute Nucleated RBC Nucleated RBC % (auto) VBG pH 7.57 H VBG pCO2 32 VBG pO2 39 VBG HCO3 30 H VBG O2 Saturation 65.0 VBG Base Excess 8.1 Sodium Potassium Chloride Carbon Dioxide Anion Gap BUN Creatinine Estim Creat Clear Calc Estimated GFR Random Glucose Calcium Phosphorus Magnesium Albumin Microbiology Microbiology Results: Microbiology 09/17/21 07:32 Sputum - Suctioned Gram Stain - Final 09/17/21 07:32 Sputum - Suctioned Sputum Culture - Final [place] tropicalis 09/14/21 08:55 Blood - Venous Blood Culture - Final No growth after 5 days. 09/14/21 10:10 Catheter Tip - Cvp Catheter Tip Culture - Final 09/12/21 05:20 Blood - Venous Blood Culture - Final No growth after 5 days. 09/12/21 05:32 Blood - Venous Blood Culture - Final No growth after 5 days. 09/14/21 08:46 Blood - Venous Blood Culture - Final Coag negative Staphylococcus 09/09/21 22:41 Blood - Venous Blood Culture - Final No growth after 5 days. 09/09/21 22:41 Blood - Venous Blood Culture - Final Coag negative Staphylococcus 09/10/21 05:00 Sputum - Suctioned Gram Stain - Final 09/10/21 05:00 Sputum - Suctioned Sputum Culture - Final No growth. 09/10/21 00:00 Urine Catheterized - Stanford Catheter Urine Culture - Final Enterococcus faecalis Progress Note: A&P Assessment and plan (1) Aortic stenosis: Status: Acute (2) Cerebral infarction: Status: Acute (3) Acute on chronic diastolic (congestive) heart failure: Status: Acute (4) Acute on chronic respiratory failure with hypoxia and hypercapnia: Status: Acute (5) Atrial arrhythmia: Status: Acute (6) DHEERAJ (obstructive sleep apnea): Status: Acute Assessment and Plan: Assessment: 71-year-old lady with multiple medical issues admitted with dyspnea and metabolic encephalopathy secondary to CO2 narcosis secondary to acute on chronic hypoxic and hypercapnic respiratory failure requiring ventilatory support, now with failure to wean from ventilatory support. Plan: Neuro: No acute issues. Cardiac: underlying chronic diastolic congestive heart failure. Aortic stenosis moderate on dobutamine echo. Cardiology service care is appreciated. Appears to be at the dry weight. Will hold diuretic at this time. Pulmonary: Acute on chronic hypoxic and hypercapnic respiratory failure with initial failure to wean from ventilatory support. Discussions above tracheostomy and gastrostomy ongoing with the family. Renal: No acute issues. Endo: No acute issues. GI: Constipation, improved on lactulose. ID: No acute issues Heme/Onc: No acute issues. Psych: No acute issues. Miscellaneous: No acute issues. Prophylaxis: famotidine, Lovenox Diet: tube feeds Critical care time spent: 45 minutes Quality Stroke Does the patient have a stroke diagnosis?: No VTE Prior VTE?: No VTE Risk Level:: Medical - moderate - high VTE Device Contraindication: N/A - Device Ordered VTE Drug Contraindication: N/A - Med Ordered
[2021-09-21] MEDS: propofoL 1,000 MG/100 ML VIAL 6.05 MG IVCONT (14:45)
--- NOTE | 2021-09-21 16:01 | MHC.CM.PN ---
Spoke with pt's HCP, dtr Suzan re: goals of d/c and care. Suzan stated her mother would not have wanted dependency on a vent or have prolonged placement in a care facility. She is awaiting to speak with Dr. Hernandez about prognosis, goals of care, and treatment plans. Suzan aware that trach/peg placement would require LTAC placement until trach matured and pt could be placed at a SNF level. Will contact Suzan once she has spoken with MD. YING to follow
[2021-09-21] MEDS: lamoTRIgine 25 MG TABLET 50 MG PO (19:41)
[2021-09-21] MEDS: propofoL 1,000 MG/100 ML VIAL 24.22 MG IVCONT ×2 (19:42→23:32)
[2021-09-21] MEDS: Chlorhexidine Gluc Oral Rinse 15 ML MOUTHWASH BUCCAL (19:42)
[2021-09-22] VITALS (35 sets, daily range): BP systolic 90–157; BP diastolic 39–79; PULSE 48–104; RESP 16–17; TEMP 35–36.3; O2SAT 95–100; BMI 32.2
[2021-09-22] MEDS: Enoxaparin Sodium 40 MG/0.4 ML SYRINGE SUBCUT (02:59)
[2021-09-22] MEDS: propofoL 1,000 MG/100 ML VIAL 24.22 MG IVCONT ×6 (03:25→23:21)
--- NOTE | 2021-09-22 05:10 | PC.NURSE ---
Addendum entered by Nicholas Cortez RN 09/22/21 05:23: afebrile Original Note: Assumed care from RALPH Sandoval at 19:00. Patient RASS - 4, PERRL at 4 mm, +cough/+gag, reacts to noxious stimuli, overbreathes vent. Patient on propofol 40 mcg/kg/min, and tolerating ventilator. BP soft, continues on levophed, titrated per MAP with good effect. Currently 0.13 mcg/kg/min. Telemetry sinus arrhythmia ranging from rate in 40's to rate in low 100's, frequent PVCs, PLANE CAPTAIN aware. Patient with distant heart sounds, minimal edema, generalized about hips, buttocks, and back. +2 pulses. Patient with lung sounds with occasional rhonchorous sounds on the left side, but mostly clear and dim bases. COntinues on vent, #7.5 ETT is 21 cm at the lip, AC/VC settings, RT 16; TV 450; Peep 5; FiO2 30% (titrated down from 40%); FiO2 around 95-96%; minute volumes 7.1-7.4. Patient is mostly synchronous with vent but breathes over slightly. Inline secretions thin and clear, moderate, oral secretions thin and clear and copious. TF was increased to max rate of 60 cc/hour, and well tolerated, no residuals. H2O Q8 hours, given at 00:00, +placement. Bowel sounds quite hypoactive throughout and faine in the LUQ. Dressing to midline abdomen was changed on days and is C/D/I. small 3-4 cm round semi-firm lump is palpated to the left and proximal to umbilicus. urine outputs via broderick were low: 0--25 cc/ hour and urine dark yellow, PLANE CAPTAIN aware.
[2021-09-22 05:46] LABS: MANUAL DIFF FLAG NO
[2021-09-22 05:49] LABS: Basophils Absolute Auto 0.1 X10*3/uL (0.0-0.2); Basophils Percent Auto 0.4 % (0-2); Eosinophils Absolute Auto 0.6 X10*3/uL (0.0-0.4); Eosinophils Percent Auto 3.7 % (0-4); Hemoglobin 11.6 g/dl (12.0-16.0); Imm Gran Abs Auto 0.16 X10*3/uL (0.00-0.03); Imm Gran Pct Auto 0.9 % (0.0-0.4); Lymphocytes Absolute Auto 1.8 X10*3/uL (1.2-4.9); Lymphocytes Percent Auto 10.5 % (20-40); Mean Corpuscular HGB Conc 30.5 g/dl (31.0-35.0); Mean Corpuscular Hemoglobin 27.8 pg (27.0-33.0); Mean Corpuscular Volume 91.1 fL (80.0-98.0); Mean Platelet Volume 9.3 fL (9.4-12.3); Monocytes Percent Auto 5.9 % (2-11); Neutrophils Absolute Auto 13.5 x10*3/uL (2.0-8.3); Neutrophils Percent Auto 78.6 % (45-73); Platelet Count 276 X10*3/uL (160-400); Red Blood Count 4.17 X10*6/uL (4.20-5.50); Red Cell Distribution Width 13.4 % (11.0-16.0); White Blood Count 17.2 X10*3/uL (4.8-10.8)
[2021-09-22 05:50] LABS: VBG Base Excess 5.6 mmol/L; VBG HCO3 28 mmol/L (22-26); VBG pCO2 36 mmHg; VBG pO2 41 mmHg
[2021-09-22 05:53] LABS: Venous Blood Gas Refer to POC result
[2021-09-22] MEDS: Levothyroxine Sodium 150 MCG TABLET PO (05:55)
[2021-09-22 06:09] LABS: Albumin Level 3.9 g/dL (3.5-5.0); Anion Gap 14 (12-20); Blood Urea Nitrogen 12 mg/dL (9-16); Calcium 9.1 mg/dL (8.4-10.2); Carbon Dioxide 27 mmol/L (22-29); Chloride 104 mmol/L (96-108); Creatinine Clr Calc Pharmacy 77.7; Estimated Glomerular Filt Rate > 60; Glucose Random 146 mg/dL (60-115); Magnesium 2.2 mg/dL (1.6-2.6); Phosphorus 3.9 mg/dL (2.7-4.5); Potassium 3.4 mmol/L (3.3-5.1); Sodium 142 mmol/L (135-145)
[2021-09-22] MEDS: Potassium Chloride/H20 40 MEQ/100 ML PIGGYBACK 50 MEQ IV (06:46)
[2021-09-22] MEDS: Lactulose 20 GM/30 ML SOLUTION 30 GM PO (07:35)
[2021-09-22] MEDS: lamoTRIgine 25 MG TABLET 50 MG PO ×2 (07:36→21:14)
[2021-09-22] MEDS: Famotidine/PF 20 MG/2 ML VIAL IVPUSH (07:36)
[2021-09-22] MEDS: Furosemide 20 MG/2 ML VIAL IVPUSH (07:48)
--- NOTE | 2021-09-22 09:47 | MHC.CM.PN ---
Pt reintubated on 09/20: Per MD, pt's family HCP Suzan and her brother with whom pt resides with, need to have a plan regarding next level of care. MD states pt needs a peg/trach vs [employer]. CM conversation with Suzan on 09/21 focused on pt's wishes/wants as previously relayed to Suzan and that was no invasive treatment or prolonged rehab placement. Offered Suzan emotional support on being the primary decision maker and asked her to contact ICU MD for discussion - offered to arranged a family meeting to discuss options. MD to discuss with Suzan today.
--- NOTE | 2021-09-22 13:19 | PM.CCPN ---
Subjective Subjective Date of Service: 09/22/21 Interval History: 71-year-old lady with underlying history of COPD, recent CVA, CAD, diastolic congestive heart failure, bifascicular block, aortic wall stenosis, supplemental oxygen dependent, obesity, obstructive sleep apnea with obesity hypoventilation syndrome intolerant of CPAP admitted on 09/10/2021 with acute on chronic hypoxic and hypercapnic respiratory failure requiring intubation and ventilatory support. Treated for multifocal pneumonia, COPD and CHF exacerbation. Extubated on 09/11/2021 . Patient required re-intubation 09/16/2021 for acute onset of pulmonary edema. 2D echocardiogram on dobutamine demonstrated moderate aortic stenosis. Patient was further diuresed and extubated on 09/20/2021,, however patient developed acute hypoxia secondary to pulmonary aspiration requiring re-intubation within 4 hours. No events overnight. Critical Care Time (minutes): 45 Physical Exam Vital Signs: Vital Signs: Last Vital Signs Temp 97.4 F 09/22/21 12:00 Pulse 76 09/22/21 13:00 Resp 16 09/22/21 13:00 BP 128/56 L 09/22/21 13:00 Pulse Ox 97 09/22/21 13:00 Oxygen Flow Rate 4 09/09/21 22:09 BMI result Body Mass Index 32.2 Const: General: no acute distress and other ( Sedated on the vent, arousable with sedation vacation) Eyes: Sclerae: sclerae normal EOM: EOMs intact bilaterally Neck: Neck: Yes no lymphadenopathy, Yes trachea midline and Yes supple Resp: Effort & Inspection: normal respiratory effort and no respiratory distress Auscultation: clear to auscultation bilaterally Cardio: Rate: regular rate Rhythm: abnormal rhythm irregularly irregular Heart sounds: no gallops, no murmurs and no rubs GI: Palpation (GI): Soft to palpation and Other GI palpation findings present ( Nontender) Auscultation: normal bowel sounds Extrem: General: No clubbing, No cyanosis and Yes edema ( trace bilateral) Objective Data Labs CBC & Chem 7: 09/22/21 05:35 09/22/21 05:35 Labs: Laboratory Results - last 24 hr 09/22/21 09/22/21 09/22/21 05:35 05:35 05:44 WBC 17.2 H RBC 4.17 L Hgb 11.6 L Hct 38.0 MCV 91.1 MCH 27.8 MCHC 30.5 L RDW 13.4 Plt Count 276 MPV 9.3 L Immature Gran % (Auto) 0.9 H Neut % (Auto) 78.6 H Lymph % (Auto) 10.5 L [place] % (Auto) 5.9 Eos % (Auto) 3.7 Baso % (Auto) 0.4 Lymph # (Auto) 1.8 [place] # (Auto) 1.0 Eos # (Auto) 0.6 H Baso # (Auto) 0.1 Abs Immat Gran (auto) 0.16 H Absolute Neuts (auto) 13.5 H Absolute Nucleated RBC 0.000 Nucleated RBC % (auto) 0.0 VBG pH 7.50 H VBG pCO2 36 VBG pO2 41 VBG HCO3 28 H VBG O2 Saturation 63.0 VBG Base Excess 5.6 Sodium 142 Potassium 3.4 Chloride 104 Carbon Dioxide 27 Anion Gap 14 BUN 12 D Creatinine 0.79 Estim Creat Clear Calc 77.7 Estimated GFR > 60 Random Glucose 146 H Calcium 9.1 Phosphorus 3.9 Magnesium 2.2 Albumin 3.9 Microbiology Microbiology Results: Microbiology 09/17/21 07:32 Sputum - Suctioned Gram Stain - Final 09/17/21 07:32 Sputum - Suctioned Sputum Culture - Final [place] tropicalis 09/14/21 08:55 Blood - Venous Blood Culture - Final No growth after 5 days. 09/14/21 10:10 Catheter Tip - Cvp Catheter Tip Culture - Final 09/12/21 05:20 Blood - Venous Blood Culture - Final No growth after 5 days. 09/12/21 05:32 Blood - Venous Blood Culture - Final No growth after 5 days. 09/14/21 08:46 Blood - Venous Blood Culture - Final Coag negative Staphylococcus 09/09/21 22:41 Blood - Venous Blood Culture - Final No growth after 5 days. 09/09/21 22:41 Blood - Venous Blood Culture - Final Coag negative Staphylococcus 09/10/21 05:00 Sputum - Suctioned Gram Stain - Final 09/10/21 05:00 Sputum - Suctioned Sputum Culture - Final No growth. 09/10/21 00:00 Urine Catheterized - [facility] Catheter Urine Culture - Final Enterococcus faecalis Progress Note: A&P Assessment and plan (1) Aortic stenosis: Status: Acute (2) Acute on chronic diastolic (congestive) heart failure: Status: Acute (3) Acute on chronic respiratory failure with hypoxia and hypercapnia: Status: Acute (4) COPD (chronic obstructive pulmonary disease): Status: Acute (5) Atrial arrhythmia: Status: Acute (6) DHEERAJ (obstructive sleep apnea): Status: Acute (7) Failure to wean from mechanical ventilation: Status: Acute Assessment and Plan: Assessment: 71-year-old lady with multiple medical issues admitted with dyspnea and metabolic encephalopathy secondary to CO2 narcosis secondary to acute on chronic hypoxic and hypercapnic respiratory failure requiring ventilatory support, now with failure to wean from ventilatory support. Plan: Neuro: No acute issues. Cardiac: Underlying chronic diastolic congestive heart failure. Aortic stenosis moderate on dobutamine echo. Cardiology service care is appreciated. Appears to be at the dry weight. Will maintain euvolemia. Pulmonary: Acute on chronic hypoxic and hypercapnic respiratory failure with initial failure to wean from ventilatory support. Discussions above tracheostomy and gastrostomy ongoing with the family. Renal: No acute issues. Endo: No acute issues. GI: Constipation, resolved on lactulose. ID: No acute issues Heme/Onc: No acute issues. Psych: No acute issues. Miscellaneous: No acute issues. Prophylaxis: famotidine, Lovenox Diet: tube feeds Critical care time spent: 45 minutes Quality Stroke Does the patient have a stroke diagnosis?: No VTE Prior VTE?: No VTE Risk Level:: Medical - moderate - high VTE Device Contraindication: N/A - Device Ordered VTE Drug Contraindication: N/A - Med Ordered
[2021-09-22] MEDS: Chlorhexidine Gluc Oral Rinse 15 ML MOUTHWASH BUCCAL (21:14)
[2021-09-23] VITALS (30 sets, daily range): BP systolic 100–150; BP diastolic 41–68; PULSE 50–111; RESP 15–16; TEMP 35–36.5; O2SAT 94–97; BMI 33.1
[2021-09-23] MEDS: Enoxaparin Sodium 40 MG/0.4 ML SYRINGE SUBCUT (02:41)
[2021-09-23] MEDS: propofoL 1,000 MG/100 ML VIAL 24.22 MG IVCONT ×6 (03:04→23:23)
[2021-09-23 05:42] LABS: VBG Base Excess 6.5 mmol/L; VBG HCO3 30 mmol/L (22-26); VBG pCO2 41 mmHg; VBG pH 7.47 (7.32-7.43); VBG pO2 45 mmHg
[2021-09-23 06:02] LABS: MANUAL DIFF FLAG NO
[2021-09-23 06:06] LABS: Basophils Absolute Auto 0.1 X10*3/uL (0.0-0.2); Basophils Percent Auto 0.6 % (0-2); Eosinophils Absolute Auto 0.7 X10*3/uL (0.0-0.4); Hematocrit 35.8 % (37.0-47.0); Hemoglobin 11.1 g/dl (12.0-16.0); Imm Gran Pct Auto 2.3 % (0.0-0.4); Lymphocytes Absolute Auto 2.6 X10*3/uL (1.2-4.9); Lymphocytes Percent Auto 20.3 % (20-40); Mean Corpuscular Hemoglobin 28.5 pg (27.0-33.0); Mean Corpuscular Volume 91.8 fL (80.0-98.0); Mean Platelet Volume 9.9 fL (9.4-12.3); Monocytes Percent Auto 7.9 % (2-11); Neutrophils Absolute Auto 8.3 x10*3/uL (2.0-8.3); Neutrophils Percent Auto 63.9 % (45-73); Platelet Count 290 X10*3/uL (160-400); Red Cell Distribution Width 13.3 % (11.0-16.0); White Blood Count 12.9 X10*3/uL (4.8-10.8)
[2021-09-23] MEDS: Levothyroxine Sodium 150 MCG TABLET PO (07:20)
[2021-09-23] MEDS: Furosemide 20 MG/2 ML VIAL IVPUSH (07:20)
[2021-09-23] MEDS: Famotidine/PF 20 MG/2 ML VIAL IVPUSH (07:20)
[2021-09-23] MEDS: Lactulose 20 GM/30 ML SOLUTION 30 GM PO (07:21)
[2021-09-23] MEDS: lamoTRIgine 25 MG TABLET 50 MG PO ×2 (07:21→20:35)
[2021-09-23 07:36] LABS: Albumin Level 3.6 g/dL (3.5-5.0); Anion Gap 13 (12-20); Blood Urea Nitrogen 17 mg/dL (9-16); Calcium 9.5 mg/dL (8.4-10.2); Carbon Dioxide 28 mmol/L (22-29); Chloride 103 mmol/L (96-108); Creatinine Clr Calc Pharmacy 87.7; Estimated Glomerular Filt Rate > 60; Glucose Random 144 mg/dL (60-115); Magnesium 2.3 mg/dL (1.6-2.6); Phosphorus 3.7 mg/dL (2.7-4.5); Potassium 4.1 mmol/L (3.3-5.1); Sodium 140 mmol/L (135-145)
[2021-09-23 08:24] LABS: Venous Blood Gas Refer to POC result
[2021-09-23] MEDS: Furosemide 20 MG/2 ML VIAL 40 MG IVPUSH (09:34)
--- NOTE | 2021-09-23 10:14 | MHC.CLN ---
F/U PT REMAINS INTUBATED AND SEDATED PT RECEIVING PROMOTE TO GOAL RATE 60ML/HR WITH 240CC FREE WATER Q SHIFT PROVIDES 1440KCALS (2079KCALS WITH SEDATION; 27KCALS/KG BASED ON CMW), 90G PROTEIN (1.2G/KG), 1928CC TOTAL FREE WATER FROM FORMULA AND FLUSHES (25ML/KG) MONITOR TOLERANCE, RESIDUALS AND LYTES
--- NOTE | 2021-09-23 11:27 | P.PNCC_ITS ---
Subjective Subjective Date of Service: 09/23/21 Interval History: 71-year-old lady with underlying history of COPD, recent CVA, CAD, diastolic congestive heart failure, bifascicular block, aortic wall stenosis, supplemental oxygen dependent, obesity, obstructive sleep apnea with obesity hypoventilation syndrome intolerant of CPAP admitted on 09/10/2021 with acute on chronic hypoxic and hypercapnic respiratory failure requiring intubation and ventilatory support. Treated for multifocal pneumonia, COPD and CHF exacerbation. Extubated on 09/11/2021 . Patient required re-intubation 1 11/17/2020 for acute onset of pulmonary edema. 2D echocardiogram on dobutamine demonstrated moderate aortic stenosis. Patient was further diuresed and extubated on 09/20/2021. However, patient developed acute hypoxia secondary to pulmonary aspiration requiring re-intubation within 4 hours. Discussions of goals of care are in progress with the family. No events overnight. Critical Care Time (minutes): 45 Physical Exam Vital Signs: Vital Signs: Last Vital Signs Temp 97.3 F 09/23/21 09:00 Pulse 97 09/23/21 11:00 Resp 16 09/23/21 11:00 BP 125/44 L 09/23/21 11:00 Pulse Ox 96 09/23/21 11:00 Oxygen Flow Rate 4 09/09/21 22:09 BMI result Body Mass Index 33.1 Const: General: no acute distress and other ( Sedated on the vent, arousable with sedation vacation) Eyes: Sclerae: sclerae normal EOM: EOMs intact bilaterally Neck: Neck: Yes no lymphadenopathy, Yes trachea midline and Yes supple Resp: Effort & Inspection: normal respiratory effort and no respiratory distress Auscultation: clear to auscultation bilaterally Cardio: Rate: regular rate Rhythm: regular rhythm Heart sounds: no gallops, no murmurs and no rubs GI: Palpation (GI): Soft to palpation and Other GI palpation findings present ( Nontender) Auscultation: normal bowel sounds Extrem: General: No clubbing, No cyanosis and Yes pedal edema ( trace bilateral) Objective Data Labs CBC & Chem 7: 09/23/21 05:15 09/23/21 05:15 Labs: Laboratory Results - last 24 hr 09/23/21 09/23/21 09/23/21 05:15 05:15 05:36 WBC 12.9 H RBC 3.90 L Hgb 11.1 L Hct 35.8 L MCV 91.8 MCH 28.5 MCHC 31.0 RDW 13.3 Plt Count 290 MPV 9.9 Immature Gran % (Auto) 2.3 H Neut % (Auto) 63.9 Lymph % (Auto) 20.3 [place] % (Auto) 7.9 Eos % (Auto) 5.0 H Baso % (Auto) 0.6 Lymph # (Auto) 2.6 [place] # (Auto) 1.0 Eos # (Auto) 0.7 H Baso # (Auto) 0.1 Abs Immat Gran (auto) 0.30 H Absolute Neuts (auto) 8.3 Absolute Nucleated RBC 0.000 Nucleated RBC % (auto) 0.0 VBG pH 7.47 H VBG pCO2 41 VBG pO2 45 VBG HCO3 30 H VBG O2 Saturation 68.0 VBG Base Excess 6.5 Sodium 140 Potassium 4.1 D Chloride 103 Carbon Dioxide 28 Anion Gap 13 BUN 17 H Creatinine 0.71 Estim Creat Clear Calc 87.7 Estimated GFR > 60 Random Glucose 144 H Calcium 9.5 Phosphorus 3.7 Magnesium 2.3 Albumin 3.6 Microbiology Microbiology Results: Microbiology 09/17/21 07:32 Sputum - Suctioned Gram Stain - Final 09/17/21 07:32 Sputum - Suctioned Sputum Culture - Final [place] tropicalis 09/14/21 08:55 Blood - Venous Blood Culture - Final No growth after 5 days. 09/14/21 10:10 Catheter Tip - Cvp Catheter Tip Culture - Final 09/12/21 05:20 Blood - Venous Blood Culture - Final No growth after 5 days. 09/12/21 05:32 Blood - Venous Blood Culture - Final No growth after 5 days. 09/14/21 08:46 Blood - Venous Blood Culture - Final Coag negative Staphylococcus 09/09/21 22:41 Blood - Venous Blood Culture - Final No growth after 5 days. 09/09/21 22:41 Blood - Venous Blood Culture - Final Coag negative Staphylococcus 09/10/21 05:00 Sputum - Suctioned Gram Stain - Final 09/10/21 05:00 Sputum - Suctioned Sputum Culture - Final No growth. 09/10/21 00:00 Urine Catheterized - [facility] Catheter Urine Culture - Final Enterococcus faecalis Progress Note: A&P Assessment and plan (1) Failure to wean from mechanical ventilation: Status: Acute (2) Acute on chronic diastolic (congestive) heart failure: Status: Acute (3) Acute on chronic respiratory failure with hypoxia and hypercapnia: Status: Acute (4) Aortic stenosis: Status: Acute (5) CHF exacerbation: Status: Acute Assessment and Plan: Assessment: 71-year-old lady with multiple medical issues admitted with dyspnea and metabolic encephalopathy secondary to CO2 narcosis secondary to acute on chronic hypoxic and hypercapnic respiratory failure requiring ventilatory support, now with failure to wean from ventilatory support. Plan: Neuro: No acute issues. Cardiac: Underlying chronic diastolic congestive heart failure. Aortic stenosis moderate on dobutamine echo. Cardiology service care is appreciated. Will maintain euvolemia. Pulmonary: Acute on chronic hypoxic and hypercapnic respiratory failure with initial failure to wean from ventilatory support. Discussions about tracheostomy and gastrostomy placement are ongoing with the family. Renal: No acute issues. Endo: No acute issues. GI: Constipation, resolved on lactulose. ID: No acute issues Heme/Onc: No acute issues. Psych: No acute issues. Miscellaneous: No acute issues. Prophylaxis: famotidine, Lovenox Diet: tube feeds Critical care time spent: 45 minutes Quality Stroke Does the patient have a stroke diagnosis?: No VTE Prior VTE?: No VTE Risk Level:: Medical - moderate - high VTE Device Contraindication: N/A - Device Ordered VTE Drug Contraindication: N/A - Med Ordered
--- NOTE | 2021-09-23 11:54 | PC.NURSE ---
Remains stable, vented on AC settings 16/450/30%/5. Min vols 7 SpO2 95% and better. Inspiratory rhonchi noted, clearing after suctioning. Sedated well on Propofol infusion to tolerate vent. BP maintained on Levophed drip, 0.1mcg/kg/min. Daily Lasix IVP increased from 20mg to 40mg. UO clear yellow, good amounts. Tube feeds at goal, rectal tube remains in place, small amounts of liquid stool collected. Oral care and repositioning done q2hrs.
[2021-09-23] MEDS: Chlorhexidine Gluc Oral Rinse 15 ML MOUTHWASH BUCCAL (20:35)
[2021-09-24] VITALS (30 sets, daily range): BP systolic 96–137; BP diastolic 45–73; PULSE 56–115; RESP 14–16; TEMP 35–36.9; O2SAT 91–100; BMI 33.2
[2021-09-24] MEDS: propofoL 1,000 MG/100 ML VIAL 24.22 MG IVCONT ×6 (02:07→22:08)
[2021-09-24] MEDS: Enoxaparin Sodium 40 MG/0.4 ML SYRINGE SUBCUT (02:42)
[2021-09-24 05:42] LABS: VBG Base Excess 5.4 mmol/L; VBG HCO3 29 mmol/L (22-26); VBG pCO2 38 mmHg; VBG pH 7.48 (7.32-7.43); VBG pO2 45 mmHg
[2021-09-24 05:42] LABS: MANUAL DIFF FLAG NO
[2021-09-24 05:46] LABS: Venous Blood Gas Refer to POC result
[2021-09-24 05:47] LABS: Basophils Absolute Auto 0.1 X10*3/uL (0.0-0.2); Basophils Percent Auto 0.6 % (0-2); Eosinophils Absolute Auto 0.5 X10*3/uL (0.0-0.4); Eosinophils Percent Auto 3.5 % (0-4); Hematocrit 36.8 % (37.0-47.0); Hemoglobin 11.3 g/dl (12.0-16.0); Imm Gran Abs Auto 0.25 X10*3/uL (0.00-0.03); Imm Gran Pct Auto 1.8 % (0.0-0.4); Lymphocytes Absolute Auto 2.4 X10*3/uL (1.2-4.9); Lymphocytes Percent Auto 17.5 % (20-40); Mean Corpuscular HGB Conc 30.7 g/dl (31.0-35.0); Mean Corpuscular Hemoglobin 28.2 pg (27.0-33.0); Mean Corpuscular Volume 91.8 fL (80.0-98.0); Mean Platelet Volume 9.4 fL (9.4-12.3); Monocytes Absolute Auto 0.9 X10*3/uL (0.1-1.2); Monocytes Percent Auto 6.7 % (2-11); Neutrophils Absolute Auto 9.5 x10*3/uL (2.0-8.3); Neutrophils Percent Auto 69.9 % (45-73); Platelet Count 285 X10*3/uL (160-400); Red Blood Count 4.01 X10*6/uL (4.20-5.50); Red Cell Distribution Width 13.4 % (11.0-16.0); White Blood Count 13.5 X10*3/uL (4.8-10.8)
[2021-09-24] MEDS: Levothyroxine Sodium 150 MCG TABLET PO (06:01)
[2021-09-24 06:06] LABS: Albumin Level 3.6 g/dL (3.5-5.0); Anion Gap 12 (12-20); Blood Urea Nitrogen 19 mg/dL (9-16); Calcium 9.5 mg/dL (8.4-10.2); Carbon Dioxide 28 mmol/L (22-29); Chloride 105 mmol/L (96-108); Creatinine Clr Calc Pharmacy 86.6; Estimated Glomerular Filt Rate > 60; Glucose Random 150 mg/dL (60-115); Magnesium 2.3 mg/dL (1.6-2.6); Phosphorus 4.1 mg/dL (2.7-4.5); Potassium 4.1 mmol/L (3.3-5.1); Sodium 141 mmol/L (135-145)
[2021-09-24] MEDS: Famotidine/PF 20 MG/2 ML VIAL IVPUSH (08:19)
[2021-09-24] MEDS: Lactulose 20 GM/30 ML SOLUTION 30 GM PO (08:19)
[2021-09-24] MEDS: lamoTRIgine 25 MG TABLET 50 MG PO ×2 (08:19→21:51)
[2021-09-24] MEDS: Furosemide 20 MG/2 ML VIAL 40 MG IVPUSH ×2 (08:19→18:01)
--- NOTE | 2021-09-24 10:11 | PM.CCPN ---
Subjective Subjective Date of Service: 09/24/21 Interval History: 71-year-old lady with underlying history of COPD, recent CVA, CAD, diastolic congestive heart failure, bifascicular block, aortic wall stenosis, supplemental oxygen dependent, obesity, obstructive sleep apnea with obesity hypoventilation syndrome intolerant of CPAP admitted on 09/10/2021 with acute on chronic hypoxic and hypercapnic respiratory failure requiring intubation and ventilatory support. Treated for multifocal pneumonia, COPD and CHF exacerbation. Extubated on 09/11/2021 . Patient required re-intubation 09/16/2021 for acute onset of pulmonary edema. 2D echocardiogram on dobutamine demonstrated moderate aortic stenosis. Patient was further diuresed and extubated on 09/20/2021. However, patient developed acute hypoxia secondary to pulmonary aspiration requiring re-intubation within 4 hours. Family wants to proceed with tracheostomy parenteral gastrostomy - thoracic surgery notified. No events overnight. Critical Care Time (minutes): 45 Physical Exam Vital Signs: Vital Signs: Last Vital Signs Temp 97.0 F 09/24/21 08:00 Pulse 64 09/24/21 10:00 Resp 14 09/24/21 10:00 BP 119/55 L 09/24/21 10:00 Pulse Ox 95 09/24/21 10:00 Oxygen Flow Rate 4 09/09/21 22:09 BMI result Body Mass Index 33.2 Const: General: no acute distress and other (Sedated sedation vacation) Eyes: Sclerae: sclerae normal EOM: EOMs intact bilaterally Neck: Neck: Yes no lymphadenopathy, Yes trachea midline and Yes supple Resp: Auscultation: clear to auscultation bilaterally Cardio: Rate: regular rate Rhythm: regular rhythm Heart sounds: no gallops, no murmurs and no rubs GI: Palpation (GI): Soft to palpation and Other GI palpation findings present ( Nontender) Auscultation: normal bowel sounds Extrem: General: No clubbing, No cyanosis and Yes pedal edema (Trace bilateral) Objective Data Labs CBC & Chem 7: 09/24/21 05:35 09/24/21 05:35 Labs: Laboratory Results - last 24 hr 09/24/21 09/24/21 09/24/21 05:35 05:35 05:36 WBC 13.5 H RBC 4.01 L Hgb 11.3 L Hct 36.8 L MCV 91.8 MCH 28.2 MCHC 30.7 L RDW 13.4 Plt Count 285 MPV 9.4 Immature Gran % (Auto) 1.8 H Neut % (Auto) 69.9 Lymph % (Auto) 17.5 L [place] % (Auto) 6.7 Eos % (Auto) 3.5 Baso % (Auto) 0.6 Lymph # (Auto) 2.4 [place] # (Auto) 0.9 Eos # (Auto) 0.5 H Baso # (Auto) 0.1 Abs Immat Gran (auto) 0.25 H Absolute Neuts (auto) 9.5 H Absolute Nucleated RBC 0.000 Nucleated RBC % (auto) 0.0 VBG pH 7.48 H VBG pCO2 38 VBG pO2 45 VBG HCO3 29 H VBG O2 Saturation 69.0 VBG Base Excess 5.4 Sodium 141 Potassium 4.1 Chloride 105 Carbon Dioxide 28 Anion Gap 12 BUN 19 H Creatinine 0.72 Estim Creat Clear Calc 86.6 Estimated GFR > 60 Random Glucose 150 H Calcium 9.5 Phosphorus 4.1 Magnesium 2.3 Albumin 3.6 Microbiology Microbiology Results: Microbiology 09/17/21 07:32 Sputum - Suctioned Gram Stain - Final 09/17/21 07:32 Sputum - Suctioned Sputum Culture - Final [place] tropicalis 09/14/21 08:55 Blood - Venous Blood Culture - Final No growth after 5 days. 09/14/21 10:10 Catheter Tip - Cvp Catheter Tip Culture - Final 09/12/21 05:20 Blood - Venous Blood Culture - Final No growth after 5 days. 09/12/21 05:32 Blood - Venous Blood Culture - Final No growth after 5 days. 09/14/21 08:46 Blood - Venous Blood Culture - Final Coag negative Staphylococcus 09/09/21 22:41 Blood - Venous Blood Culture - Final No growth after 5 days. 09/09/21 22:41 Blood - Venous Blood Culture - Final Coag negative Staphylococcus 09/10/21 05:00 Sputum - Suctioned Gram Stain - Final 09/10/21 05:00 Sputum - Suctioned Sputum Culture - Final No growth. 09/10/21 00:00 Urine Catheterized - [facility] Catheter Urine Culture - Final Enterococcus faecalis Progress Note: A&P Assessment and plan (1) Failure to wean from mechanical ventilation: Status: Acute (2) Atrial tachycardia: Status: Acute (3) Cerebral infarction: Status: Acute (4) Acute on chronic diastolic (congestive) heart failure: Status: Acute (5) Acute on chronic respiratory failure with hypoxia and hypercapnia: Status: Acute (6) COPD (chronic obstructive pulmonary disease): Status: Acute (7) Nonrheumatic aortic (valve) stenosis: Status: Acute (8) DHEERAJ (obstructive sleep apnea): Status: Acute Assessment and Plan: Assessment: 71-year-old lady with multiple medical issues admitted with dyspnea and metabolic encephalopathy secondary to CO2 narcosis secondary to acute on chronic hypoxic and hypercapnic respiratory failure requiring ventilatory support, now with failure to wean from ventilatory support. Plan: Neuro: No acute issues. Cardiac: Underlying chronic diastolic congestive heart failure. Aortic stenosis moderate on dobutamine echo. Cardiology service care is appreciated. Will maintain euvolemia. Pulmonary: Acute on chronic hypoxic and hypercapnic respiratory failure with initial failure to wean from ventilatory support. Family wants to proceed with tracheostomy and gastrostomy placement, thoracic surgery consult requested. Renal: No acute issues. Endo: No acute issues. GI: No acute issues. ID: No acute issues Heme/Onc: No acute issues. Psych: No acute issues. Miscellaneous: No acute issues. Prophylaxis: famotidine, Lovenox Diet: tube feeds Critical care time spent: 45 minutes Quality Stroke Does the patient have a stroke diagnosis?: No VTE Prior VTE?: No VTE Risk Level:: Medical - moderate - high VTE Device Contraindication: N/A - Device Ordered VTE Drug Contraindication: N/A - Med Ordered
--- NOTE | 2021-09-24 11:16 | PM.EVENT ---
Event Note Date of Service: 09/24/21 Event Note: THORACIC SURGERY Will plan for percutaneous tracheostomy and PEG placement on Sunday09/28/2021 in the afternoon.
[2021-09-24 18:41] LABS: Anion Gap 12 (12-20); Blood Urea Nitrogen 19 mg/dL (9-16); Calcium 9.6 mg/dL (8.4-10.2); Carbon Dioxide 30 mmol/L (22-29); Chloride 106 mmol/L (96-108); Creatinine Clr Calc Pharmacy 79.9; Estimated Glomerular Filt Rate > 60; Glucose Random 137 mg/dL (60-115); Sodium 144 mmol/L (135-145)
[2021-09-24] MEDS: Chlorhexidine Gluc Oral Rinse 15 ML MOUTHWASH BUCCAL (21:51)
[2021-09-25] VITALS (34 sets, daily range): BP systolic 94–129; BP diastolic 46–66; PULSE 53–117; RESP 14–16; TEMP 34.9–37.2; O2SAT 86–97; BMI 33.2
[2021-09-25] MEDS: propofoL 1,000 MG/100 ML VIAL 24.22 MG IVCONT ×3 (01:18→10:05)
[2021-09-25] MEDS: Enoxaparin Sodium 40 MG/0.4 ML SYRINGE SUBCUT (02:11)
[2021-09-25 05:36] LABS: VBG Base Excess 4.8 mmol/L; VBG HCO3 28 mmol/L (22-26); VBG pCO2 40 mmHg; VBG pH 7.45 (7.32-7.43); VBG pO2 46 mmHg
[2021-09-25 05:45] LABS: MANUAL DIFF FLAG NO
[2021-09-25 05:49] LABS: Basophils Absolute Auto 0.1 X10*3/uL (0.0-0.2); Basophils Percent Auto 0.6 % (0-2); Eosinophils Absolute Auto 0.5 X10*3/uL (0.0-0.4); Eosinophils Percent Auto 3.8 % (0-4); Hematocrit 36.3 % (37.0-47.0); Hemoglobin 11.3 g/dl (12.0-16.0); Imm Gran Abs Auto 0.17 X10*3/uL (0.00-0.03); Imm Gran Pct Auto 1.2 % (0.0-0.4); Lymphocytes Absolute Auto 2.3 X10*3/uL (1.2-4.9); Lymphocytes Percent Auto 16.2 % (20-40); Mean Corpuscular HGB Conc 31.1 g/dl (31.0-35.0); Mean Corpuscular Hemoglobin 28.4 pg (27.0-33.0); Mean Corpuscular Volume 91.2 fL (80.0-98.0); Mean Platelet Volume 9.6 fL (9.4-12.3); Monocytes Absolute Auto 1.1 X10*3/uL (0.1-1.2); Monocytes Percent Auto 7.9 % (2-11); Neutrophils Absolute Auto 10.1 x10*3/uL (2.0-8.3); Neutrophils Percent Auto 70.3 % (45-73); Platelet Count 300 X10*3/uL (160-400); Red Blood Count 3.98 X10*6/uL (4.20-5.50); Red Cell Distribution Width 13.5 % (11.0-16.0); White Blood Count 14.4 X10*3/uL (4.8-10.8)
[2021-09-25] MEDS: Levothyroxine Sodium 150 MCG TABLET PO (05:58)
[2021-09-25 05:59] LABS: Venous Blood Gas Refer to POC result
[2021-09-25 06:04] LABS: Albumin Level 3.6 g/dL (3.5-5.0); Anion Gap 12 (12-20); Blood Urea Nitrogen 19 mg/dL (9-16); Calcium 9.5 mg/dL (8.4-10.2); Carbon Dioxide 29 mmol/L (22-29); Chloride 104 mmol/L (96-108); Creatinine Clr Calc Pharmacy 84.2; Estimated Glomerular Filt Rate > 60; Glucose Random 136 mg/dL (60-115); Magnesium 2.3 mg/dL (1.6-2.6); Phosphorus 4.3 mg/dL (2.7-4.5); Potassium 3.8 mmol/L (3.3-5.1); Sodium 141 mmol/L (135-145)
[2021-09-25] MEDS: Furosemide 20 MG/2 ML VIAL 40 MG IVPUSH ×2 (09:14→17:23)
[2021-09-25] MEDS: Ampicillin Sodium/Sulbactam Na 3 GM in 0.9 % Sodium Chloride 100 ML IV ×3 (09:14→21:11)
[2021-09-25] MEDS: Famotidine/PF 20 MG/2 ML VIAL IVPUSH (09:15)
[2021-09-25] MEDS: Lactulose 20 GM/30 ML SOLUTION 30 GM PO (09:15)
[2021-09-25] MEDS: lamoTRIgine 25 MG TABLET 50 MG PO ×2 (09:15→21:11)
--- NOTE | 2021-09-25 09:17 | P.PNCC_ITS ---
Subjective Subjective Date of Service: 09/25/21 Interval History: ICU day 15 for acute on chronic hypoxic respiratory failure, congestive heart failure exacerbation, aortic stenosis, COPD, failure to wean from ventilatory support. 71-year-old lady with underlying history of COPD, recent CVA, CAD, diastolic congestive heart failure, bifascicular block, aortic wall stenosis, supplemental oxygen dependent, obesity, obstructive sleep apnea with obesity hypoventilation syndrome intolerant of CPAP admitted on 09/10/2021 with acute on chronic hypoxic and hypercapnic respiratory failure requiring intubation and ventilatory support. Treated for multifocal pneumonia, COPD and CHF exacerbation. Extubated on 09/11/2021 . Patient required re-intubation 09/16/2021 for acute onset of pulmonary edema. 2D echocardiogram on dobutamine demonstrated moderate aortic stenosis. Patient was further diuresed and extubated on 09/20/2021. However, patient developed acute hypoxia secondary to pulmonary aspiration requiring re- intubation within 4 hours. Family wants to proceed with tracheostomy parenteral gastrostomy - planned for 09/28/2021. No events overnight. Critical Care Time (minutes): 45 Physical Exam Vital Signs: Vital Signs: Last Vital Signs Temp 96.9 F 09/25/21 08:00 Pulse 53 09/25/21 09:00 Resp 14 09/25/21 09:00 BP 122/59 L 09/25/21 09:00 Pulse Ox 97 09/25/21 09:00 Oxygen Flow Rate 4 09/09/21 22:09 BMI result Body Mass Index 33.2 Const: General: no acute distress and other ( sedated on the vent, arousable with sedation vacation) Eyes: Sclerae: sclerae normal EOM: EOMs intact bilaterally Neck: Neck: Yes no lymphadenopathy, Yes trachea midline and Yes supple Resp: Auscultation: crackles ( bibasilar) Cardio: Rhythm: abnormal rhythm irregularly irregular Heart sounds: no gallops, no murmurs and no rubs GI: Palpation (GI): Soft to palpation and Other GI palpation findings present ( Nontender) Auscultation: normal bowel sounds Extrem: General: No clubbing, No cyanosis and Yes pedal edema ( trace bilateral) Objective Data Labs CBC & Chem 7: 09/25/21 05:30 09/25/21 05:30 Labs: Laboratory Results - last 24 hr 09/24/21 09/25/2109/25/21 18:15 05:29 05:30 WBC 14.4 H RBC 3.98 L Hgb 11.3 L Hct 36.3 L MCV 91.2 MCH 28.4 MCHC 31.1 RDW 13.5 Plt Count 300 MPV 9.6 Immature Gran % (Auto) 1.2 H Neut % (Auto) 70.3 Lymph % (Auto) 16.2 L [place] % (Auto) 7.9 Eos % (Auto) 3.8 Baso % (Auto) 0.6 Lymph # (Auto) 2.3 [place] # (Auto) 1.1 Eos # (Auto) 0.5 H Baso # (Auto) 0.1 Abs Immat Gran (auto) 0.17 H Absolute Neuts (auto) 10.1 H Absolute Nucleated RBC 0.000 Nucleated RBC % (auto) 0.0 VBG pH 7.45 H VBG pCO2 40 VBG pO2 46 VBG HCO3 28 H VBG O2 Saturation 72.0 VBG Base Excess 4.8 Sodium 144 Potassium 4.0 Chloride 106 Carbon Dioxide 30 H Anion Gap 12 BUN 19 H Creatinine 0.78 Estim Creat Clear Calc 79.9 Estimated GFR > 60 Random Glucose 137 H Calcium 9.6 Phosphorus Magnesium Albumin 09/25/21 05:30 WBC RBC Hgb Hct MCV MCH MCHC RDW Plt Count MPV Immature Gran % (Auto) Neut % (Auto) Lymph % (Auto) [place] % (Auto) Eos % (Auto) Baso % (Auto) Lymph # (Auto) [place] # (Auto) Eos # (Auto) Baso # (Auto) Abs Immat Gran (auto) Absolute Neuts (auto) Absolute Nucleated RBC Nucleated RBC % (auto) VBG pH VBG pCO2 VBG pO2 VBG HCO3 VBG O2 Saturation VBG Base Excess Sodium 141 Potassium 3.8 Chloride 104 Carbon Dioxide 29 Anion Gap 12 BUN 19 H Creatinine 0.74 Estim Creat Clear Calc 84.2 Estimated GFR > 60 Random Glucose 136 H Calcium 9.5 Phosphorus 4.3 Magnesium 2.3 Albumin 3.6 Microbiology Microbiology Results: Microbiology 09/17/21 07:32 Sputum - Suctioned Gram Stain - Final 09/17/21 07:32 Sputum - Suctioned Sputum Culture - Final [place] tropicalis 09/14/21 08:55 Blood - Venous Blood Culture - Final No growth after 5 days. 09/14/21 10:10 Catheter Tip - Cvp Catheter Tip Culture - Final 09/12/21 05:20 Blood - Venous Blood Culture - Final No growth after 5 days. 09/12/21 05:32 Blood - Venous Blood Culture - Final No growth after 5 days. 09/14/21 08:46 Blood - Venous Blood Culture - Final Coag negative Staphylococcus 09/09/21 22:41 Blood - Venous Blood Culture - Final No growth after 5 days. 09/09/21 22:41 Blood - Venous Blood Culture - Final Coag negative Staphylococcus 09/10/21 05:00 Sputum - Suctioned Gram Stain - Final 09/10/21 05:00 Sputum - Suctioned Sputum Culture - Final No growth. 09/10/21 00:00 Urine Catheterized - [facility] Catheter Urine Culture - Final Enterococcus faecalis Progress Note: A&P Assessment and plan (1) Failure to wean from mechanical ventilation: Status: Acute (2) Acute on chronic diastolic (congestive) heart failure: Status: Acute (3) Acute on chronic respiratory failure with hypoxia and hypercapnia: Status: Acute (4) Aortic stenosis: Status: Acute (5) DHEERAJ (obstructive sleep apnea): Status: Acute (6) Bifascicular block: Status: Acute (7) Atherosclerotic cardiovascular disease: Status: Acute (8) Pulmonary aspiration: Status: Acute Assessment and Plan: Assessment: 71-year-old lady with multiple medical issues admitted with dyspnea and metabolic encephalopathy secondary to CO2 narcosis secondary to acute on chronic hypoxic and hypercapnic respiratory failure requiring ventilatory support, now with failure to wean from ventilatory support. Plan: Neuro: No acute issues. Cardiac: Underlying chronic diastolic congestive heart failure. Aortic stenosis moderate on dobutamine echo. Cardiology service care is appreciated. Will maintain euvolemia. Pulmonary: Acute on chronic hypoxic and hypercapnic respiratory failure with initial failure to wean from ventilatory support. Tracheostomy and gastrostomy planned for 09/28/2021. Renal: No acute issues. Endo: No acute issues. GI: No acute issues. ID: Pulmonary aspiration, covered with Unasyn. Heme/Onc: No acute issues. Psych: No acute issues. Miscellaneous: No acute issues. Prophylaxis: famotidine, Lovenox Diet: tube feeds Critical care time spent: 45 minutes Quality Stroke Does the patient have a stroke diagnosis?: No VTE Prior VTE?: No VTE Risk Level:: Medical - moderate - high VTE Device Contraindication: N/A - Device Ordered VTE Drug Contraindication: N/A - Med Ordered
[2021-09-25] MEDS: Chlorhexidine Gluc Oral Rinse 15 ML MOUTHWASH BUCCAL (21:11)
[2021-09-26] VITALS (30 sets, daily range): BP systolic 92–121; BP diastolic 42–64; PULSE 59–105; RESP 14–16; TEMP 34.8–36.9; O2SAT 88–98; BMI 33.9
[2021-09-26] MEDS: Enoxaparin Sodium 40 MG/0.4 ML SYRINGE SUBCUT (02:59)
[2021-09-26] MEDS: Ampicillin Sodium/Sulbactam Na 3 GM in 0.9 % Sodium Chloride 100 ML IV ×4 (02:59→20:09)
[2021-09-26 05:28] LABS: MANUAL DIFF FLAG NO
[2021-09-26 05:30] LABS: Basophils Absolute Auto 0.1 X10*3/uL (0.0-0.2); Basophils Percent Auto 0.7 % (0-2); Eosinophils Absolute Auto 0.5 X10*3/uL (0.0-0.4); Eosinophils Percent Auto 4.1 % (0-4); Hematocrit 33.5 % (37.0-47.0); Hemoglobin 10.4 g/dl (12.0-16.0); Imm Gran Abs Auto 0.11 X10*3/uL (0.00-0.03); Lymphocytes Percent Auto 17.3 % (20-40); Mean Corpuscular Hemoglobin 28.9 pg (27.0-33.0); Mean Corpuscular Volume 93.1 fL (80.0-98.0); Mean Platelet Volume 9.7 fL (9.4-12.3); Monocytes Percent Auto 8.7 % (2-11); Neutrophils Absolute Auto 7.7 x10*3/uL (2.0-8.3); Neutrophils Percent Auto 68.2 % (45-73); Platelet Count 269 X10*3/uL (160-400); Red Cell Distribution Width 13.6 % (11.0-16.0); White Blood Count 11.3 X10*3/uL (4.8-10.8)
[2021-09-26 05:34] LABS: VBG Base Excess 8.3 mmol/L; VBG HCO3 32 mmol/L (22-26); VBG pCO2 43 mmHg; VBG pH 7.48 (7.32-7.43); VBG pO2 43 mmHg
[2021-09-26 05:35] LABS: Venous Blood Gas Refer to POC result
[2021-09-26] MEDS: Levothyroxine Sodium 150 MCG TABLET PO (05:39)
[2021-09-26] MEDS: propofoL 1,000 MG/100 ML VIAL 9.08 MG IVCONT ×2 (05:39→18:03)
[2021-09-26 05:55] LABS: Albumin Level 3.4 g/dL (3.5-5.0); Anion Gap 14 (12-20); Blood Urea Nitrogen 20 mg/dL (9-16); Calcium 9.4 mg/dL (8.4-10.2); Carbon Dioxide 27 mmol/L (22-29); Chloride 104 mmol/L (96-108); Creatinine Clr Calc Pharmacy 83.1; Estimated Glomerular Filt Rate > 60; Glucose Random 128 mg/dL (60-115); Magnesium 2.3 mg/dL (1.6-2.6); Phosphorus 4.2 mg/dL (2.7-4.5); Potassium 3.6 mmol/L (3.3-5.1); Sodium 141 mmol/L (135-145)
[2021-09-26] MEDS: Lactulose 20 GM/30 ML SOLUTION 30 GM PO (07:56)
[2021-09-26] MEDS: Famotidine/PF 20 MG/2 ML VIAL IVPUSH (07:57)
[2021-09-26] MEDS: Furosemide 20 MG/2 ML VIAL 40 MG IVPUSH ×2 (07:57→18:02)
[2021-09-26] MEDS: lamoTRIgine 25 MG TABLET 50 MG PO ×2 (07:57→20:44)
--- NOTE | 2021-09-26 09:27 | MHC.CLN ---
F/U PT REMAINS INTUBATED AND SEDATED PT CONTINUES TO RECEIVE PROMOTE AT GOAL RATE 60ML/HR WITH 240CC FREE WATER Q SHIFT PROVIDES 1440KCALS (1680KCALS WITH SEDATION; 22KCALS/KG BASED ON CMW), 90G PROTEIN (1.2G/KG), 1928CC TOTAL FREE WATER FROM FORMULA AND FLUSHES (25ML/KG) TRACH AND PEG SCHEDULED FOR 09/28 CONTINUE TO MONITOR TOLERANCE, RESIDUALS AND LYTES
--- NOTE | 2021-09-26 10:03 | PM.CCPN ---
Subjective Subjective Date of Service: 09/26/21 Interval History: 71-year-old female with what I believe is still significant aortic stenosis who thus far has remain on weanable from the ventilator now been intubated I believe 4 times and the last post extubation problem was witnessed aspiration resulting in this re-intubation current chest x-ray just simply shows infiltrate versus atelectasis at the left base otherwise clear chest x-ray and low FiO2 and minutes ventilatory requirements on the ventilator right now otherwise remains in sinus rhythm predominantly pressure 120/55 current oxygen saturation 94% and breathing comfortably without accessory muscle use Critical Care Time (minutes): 45 Physical Exam Vital Signs: Vital Signs: Last Vital Signs Temp 97.6 F 09/26/21 08:00 Pulse 97 09/26/21 09:00 Resp 14 09/26/21 09:00 BP 97/47 L 09/26/21 09:00 Pulse Ox 93 09/26/21 09:00 Oxygen Flow Rate 4 09/09/21 22:09 BMI result Body Mass Index 33.9 sedated and intubated but nonfocal neurologically classic parvus and tardus carotid upstrokes but no neck vein distension no gallops abdomen is benign no again a megaly good bowel sounds and so ft chest with diminished bilateral breath sounds but no adventitious sounds skin intact Objective Data Labs CBC & Chem 7: 09/26/21 05:13 09/26/21 05:13 Labs: Laboratory Results - last 24 hr 09/26/21 09/26/21 09/26/21 05:13 05:13 05:28 WBC 11.3 H RBC 3.60 L Hgb 10.4 L Hct 33.5 L MCV 93.1 MCH 28.9 MCHC 31.0 RDW 13.6 Plt Count 269 MPV 9.7 Immature Gran % (Auto) 1.0 H Neut % (Auto) 68.2 Lymph % (Auto) 17.3 L [place] % (Auto) 8.7 Eos % (Auto) 4.1 H Baso % (Auto) 0.7 Lymph # (Auto) 2.0 [place] # (Auto) 1.0 Eos # (Auto) 0.5 H Baso # (Auto) 0.1 Abs Immat Gran (auto) 0.11 H Absolute Neuts (auto) 7.7 Absolute Nucleated RBC 0.000 Nucleated RBC % (auto) 0.0 VBG pH 7.48 H VBG pCO2 43 VBG pO2 43 VBG HCO3 32 H VBG O2 Saturation 69.0 VBG Base Excess 8.3 Sodium 141 Potassium 3.6 Chloride 104 Carbon Dioxide 27 Anion Gap 14 BUN 20 H Creatinine 0.75 Estim Creat Clear Calc 83.1 Estimated GFR > 60 Random Glucose 128 H Calcium 9.4 Phosphorus 4.2 Magnesium 2.3 Albumin 3.4 L Microbiology Microbiology Results: Microbiology 09/17/21 07:32 Sputum - Suctioned Gram Stain - Final 09/17/21 07:32 Sputum - Suctioned Sputum Culture - Final [place] tropicalis 09/14/21 08:55 Blood - Venous Blood Culture - Final No growth after 5 days. 09/14/21 10:10 Catheter Tip - Cvp Catheter Tip Culture - Final 09/12/21 05:20 Blood - Venous Blood Culture - Final No growth after 5 days. 09/12/21 05:32 Blood - Venous Blood Culture - Final No growth after 5 days. 09/14/21 08:46 Blood - Venous Blood Culture - Final Coag negative Staphylococcus 09/09/21 22:41 Blood - Venous Blood Culture - Final No growth after 5 days. 09/09/21 22:41 Blood - Venous Blood Culture - Final Coag negative Staphylococcus 09/10/21 05:00 Sputum - Suctioned Gram Stain - Final 09/10/21 05:00 Sputum - Suctioned Sputum Culture - Final No growth. 09/10/21 00:00 Urine Catheterized - [facility] Catheter Urine Culture - Final Enterococcus faecalis Progress Note: A&P Assessment and plan (1) Pulmonary aspiration: Status: Acute (2) Failure to wean from mechanical ventilation: Status: Acute (3) Acute respiratory failure: Status: Acute (4) Aortic stenosis: Status: Acute (5) Agitation: Status: Acute (6) Hypernatremia: Status: Acute (7) Atrial tachycardia: Status: Acute (8) CHF exacerbation: Status: Acute (9) COPD exacerbation: Status: Acute (10) Altered mental state: Status: Acute (11) Cerebral infarction: Status: Acute (12) Acute CVA (cerebrovascular accident): Status: Acute (13) Thoracic aortic aneurysm (TAA): Status: Acute (14) Fall: Status: Acute (15) Acute on chronic diastolic (congestive) heart failure: Status: Acute (16) Recurrent incisional hernia: Status: Acute (17) Acute on chronic respiratory failure with hypoxia and hypercapnia: Status: Acute (18) Acute CHF: Status: Acute (19) Acute metabolic encephalopathy: Status: Acute (20) CAP (community acquired pneumonia): Status: Acute (21) DHEERAJ (obstructive sleep apnea): Status: Acute (22) On home oxygen therapy: Status: Acute (23) Bifascicular block: Status: Acute Assessment and Plan: plan is once again to give her sedation holiday and then start to engage psychiatry to help us with keeping her temperament and behavior controlled so that hopefully she be cooperative and I would love to get to a point where we could do a swallow evaluation but the otherwise in the interim the plan I think still proceeds towards tracheostomy and PEG tube at which point will then proceed more slowly and initiate feeding at least via the PEG tube in and see if we can not reason with her I still on concerned that part of her inability to wean from the ventilator is the critical aortic valve issue which I still think might require catheterization Quality Stroke Does the patient have a stroke diagnosis?: No VTE Prior VTE?: No VTE Risk Level:: Medical - moderate - high VTE Device Contraindication: N/A - Device Ordered VTE Drug Contraindication: N/A - Med Ordered
--- NOTE | 2021-09-26 12:07 | MHC.CLN ---
Per review of EMR, has held a family conference with family and they have opted to proceed with Peg and Trach placement. Message left for HCP Suzan. Call placed to son Nicholas to discuss above: Nicholas states he was able to communicate with pt during a period when she was not sedated: he was able to ask her yes and no questions to which he states she responded to yes when he asked her if she wanted to proceed with trach and peg placement. Discussed d/c options with Nicholas including LTAC placement. He verbalized understanding of LTAC criteria. Will make referral and await 09/28 surgical procedure.
[2021-09-26] MEDS: Chlorhexidine Gluc Oral Rinse 15 ML MOUTHWASH BUCCAL (20:44)
[2021-09-27] VITALS (30 sets, daily range): BP systolic 94–167; BP diastolic 42–87; PULSE 55–114; RESP 14–24; TEMP 34.9–36.6; O2SAT 7–100; BMI 33.7
[2021-09-27] MEDS: propofoL 1,000 MG/100 ML VIAL 9.08 MG IVCONT ×3 (02:01→19:17)
[2021-09-27] MEDS: Enoxaparin Sodium 40 MG/0.4 ML SYRINGE SUBCUT (02:06)
[2021-09-27] MEDS: Ampicillin Sodium/Sulbactam Na 3 GM in 0.9 % Sodium Chloride 100 ML IV ×4 (02:07→20:35)
[2021-09-27 05:29] LABS: VBG Base Excess 8.6 mmol/L; VBG HCO3 32 mmol/L (22-26); VBG pCO2 43 mmHg; VBG pH 7.48 (7.32-7.43); VBG pO2 43 mmHg
[2021-09-27 05:38] LABS: Venous Blood Gas Refer to POC result
[2021-09-27 05:44] LABS: MANUAL DIFF FLAG NO
[2021-09-27 05:49] LABS: Basophils Absolute Auto 0.1 X10*3/uL (0.0-0.2); Basophils Percent Auto 0.9 % (0-2); Eosinophils Absolute Auto 0.5 X10*3/uL (0.0-0.4); Hematocrit 32.5 % (37.0-47.0); Hemoglobin 9.9 g/dl (12.0-16.0); Imm Gran Abs Auto 0.07 X10*3/uL (0.00-0.03); Imm Gran Pct Auto 0.8 % (0.0-0.4); Lymphocytes Percent Auto 21.8 % (20-40); Mean Corpuscular HGB Conc 30.5 g/dl (31.0-35.0); Mean Corpuscular Hemoglobin 28.1 pg (27.0-33.0); Mean Corpuscular Volume 92.3 fL (80.0-98.0); Monocytes Absolute Auto 0.8 X10*3/uL (0.1-1.2); Monocytes Percent Auto 8.9 % (2-11); Neutrophils Absolute Auto 5.6 x10*3/uL (2.0-8.3); Neutrophils Percent Auto 62.6 % (45-73); Platelet Count 281 X10*3/uL (160-400); Red Blood Count 3.52 X10*6/uL (4.20-5.50); Red Cell Distribution Width 13.6 % (11.0-16.0)
[2021-09-27 06:26] LABS: Alanine Aminotransferase 38 U/L (0-31); Albumin Level 3.5 g/dL (3.5-5.0); Alkaline Phosphatase 67 U/L (39-117); Anion Gap 13 (12-20); Aspartate Amino Transferase 31 U/L (5-31); Bilirubin Total 0.4 mg/dL (0.0-1.0); Blood Urea Nitrogen 21 mg/dL (9-16); Calcium 9.5 mg/dL (8.4-10.2); Carbon Dioxide 30 mmol/L (22-29); Chloride 103 mmol/L (96-108); Creatinine Clr Calc Pharmacy 84.8; Estimated Glomerular Filt Rate > 60; Glucose Random 120 mg/dL (60-115); Potassium 3.5 mmol/L (3.3-5.1); Sodium 142 mmol/L (135-145); Total Protein 5.9 g/dL (6.5-8.0)
[2021-09-27] MEDS: Levothyroxine Sodium 150 MCG TABLET PO (06:27)
--- NOTE | 2021-09-27 07:21 | P.PNCC_ITS ---
Subjective Subjective Date of Service: 09/27/21 Interval History: 71-year-old female with a longstanding smoking related chronic hypoxic and hypercarbic respiratory failure who has been oxygen- dependent and presented with an acute on chronic picture intubated and extubated reintubated now several times during this admission the last time with because of witnessed aspiration and currently no active evidence of pneumonia but sputum on surveillance is growing Beverly tropicalis some just going to empirically prophylax with caspofungin and in addition I believe that she has got signific ant aortic stenosis with diminished myocardial systolic reserve which is played a role her rhythm is basically sinus with atrial ectopy and all metabolic workup is all negative she and she does awaken through the propofol and she does respond and at this point is due for tracheostomy and PEG feeding tube to be placed and then will go forward in conjunction with Psychiatry because of her underlying personality disorder Critical Care Time (minutes): 45 Physical Exam Vital Signs: Vital Signs: Last Vital Signs Temp 98.4 F 09/26/21 21:00 Pulse 58 09/27/21 07:00 Resp 14 09/27/21 07:00 BP 133/52 L 09/27/21 07:00 Pulse Ox 97 09/27/21 07:00 Oxygen Flow Rate 4 09/09/21 22:09 BMI result Body Mass Index 33.7 vital signs are stable and she is neurological ly intact classic parvus and tardus carotid upstrokes but no gallops no neck vein distension tolerating feedings abdomen is soft no organomegaly lungs without adventitious sounds and no accessory muscle or diaphragmatic effort Objective Data Labs CBC & Chem 7: 09/27/21 05:18 09/27/21 05:18 Labs: Laboratory Results - last 24 hr 09/27/21 09/27/21 09/27/21 05:18 05:18 05:22 WBC 9.0 RBC 3.52 L Hgb 9.9 L Hct 32.5 L MCV 92.3 MCH 28.1 MCHC 30.5 L RDW 13.6 Plt Count 281 MPV 10.0 Immature Gran % (Auto) 0.8 H Neut % (Auto) 62.6 Lymph % (Auto) 21.8 [place] % (Auto) 8.9 Eos % (Auto) 5.0 H Baso % (Auto) 0.9 Lymph # (Auto) 2.0 [place] # (Auto) 0.8 Eos # (Auto) 0.5 H Baso # (Auto) 0.1 Abs Immat Gran (auto) 0.07 H Absolute Neuts (auto) 5.6 Absolute Nucleated RBC 0.000 Nucleated RBC % (auto) 0.0 VBG pH 7.48 H VBG pCO2 43 VBG pO2 43 VBG HCO3 32 H VBG O2 Saturation 65.0 VBG Base Excess 8.6 Sodium 142 Potassium 3.5 Chloride 103 Carbon Dioxide 30 H Anion Gap 13 BUN 21 H Creatinine 0.74 Estim Creat Clear Calc 84.8 Estimated GFR > 60 Random Glucose 120 H Calcium 9.5 Total Bilirubin 0.4 AST 31 ALT 38 H Alkaline Phosphatase 67 D Total Protein 5.9 L Albumin 3.5 Microbiology Microbiology Results: Microbiology 09/17/21 07:32 Sputum - Suctioned Gram Stain - Final 09/17/21 07:32 Sputum - Suctioned Sputum Culture - Final Beverly tropicalis 09/14/21 08:55 Blood - Venous Blood Culture - Final No growth after 5 days. 09/14/21 10:10 Catheter Tip - Cvp Catheter Tip Culture - Final 09/12/21 05:20 Blood - Venous Blood Culture - Final No growth after 5 days. 09/12/21 05:32 Blood - Venous Blood Culture - Final No growth after 5 days. 09/14/21 08:46 Blood - Venous Blood Culture - Final Coag negative Staphylococcus 09/09/21 22:41 Blood - Venous Blood Culture - Final No growth after 5 days. 09/09/21 22:41 Blood - Venous Blood Culture - Final Coag negative Staphylococcus 09/10/21 05:00 Sputum - Suctioned Gram Stain - Final 09/10/21 05:00 Sputum - Suctioned Sputum Culture - Final No growth. 09/10/21 00:00 Urine Catheterized - [place] Catheter Urine Culture - Final Enterococcus faecalis Progress Note: A&P Assessment and plan (1) Pulmonary aspiration: Status: Acute (2) Failure to wean from mechanical ventilation: Status: Acute (3) Acute respiratory failure: Status: Acute (4) Aortic stenosis: Status: Acute (5) Agitation: Status: Acute (6) Hypernatremia: Status: Acute (7) Atrial tachycardia: Status: Acute (8) CHF exacerbation: Status: Acute (9) COPD exacerbation: Status: Acute (10) Altered mental state: Status: Acute (11) Acute CVA (cerebrovascular accident): Status: Acute (12) Fall: Status: Acute (13) Thoracic aortic aneurysm (TAA): Status: Acute (14) Recurrent incisional hernia: Status: Acute (15) Acute on chronic diastolic (congestive) heart failure: Status: Acute (16) Acute on chronic respiratory failure with hypoxia and hypercapnia: Status: Acute (17) Acute CHF: Status: Acute (18) Acute metabolic encephalopathy: Status: Acute (19) CAP (community acquired pneumonia): Status: Acute (20) Respiratory failure with hypoxia and hypercapnia: Status: Acute (21) COPD (chronic obstructive pulmonary disease): Status: Acute (22) DHEERAJ (obstructive sleep apnea): Status: Acute (23) Bifascicular block: Status: Acute (24) On home oxygen therapy: Status: Acute (25) Nonrheumatic aortic (valve) stenosis: Status: Acute (26) Atherosclerotic cardiovascular disease: Status: Acute Assessment and Plan: so the plan is to cover with caspofungin and proceed with tracheostomy and PEG and the bed at which point we will attempt to wean sedation and then conjunction with psychiatry institute the medications to make a comfortable and the son will participate in ongoing discussions with his mother and will make application to a long-term acute care facility in the interim and together with Cardiology make a decision about potential cardiac catheterization if mental status warrants Quality Stroke Does the patient have a stroke diagnosis?: No VTE Prior VTE?: No VTE Risk Level:: Medical - moderate - high VTE Device Contraindication: N/A - Device Ordered VTE Drug Contraindication: N/A - Med Ordered
[2021-09-27] MEDS: Lactulose 20 GM/30 ML SOLUTION 30 GM PO (08:02)
[2021-09-27] MEDS: lamoTRIgine 25 MG TABLET 50 MG PO ×2 (08:03→20:34)
[2021-09-27] MEDS: Famotidine/PF 20 MG/2 ML VIAL IVPUSH (08:03)
[2021-09-27] MEDS: Furosemide 20 MG/2 ML VIAL 40 MG IVPUSH ×2 (08:03→18:10)
[2021-09-27] MEDS: Chlorhexidine Gluc Oral Rinse 15 ML MOUTHWASH BUCCAL ×3 (15:45→20:38)
[2021-09-27] MEDS: Caspofungin Acetate 70 MG in 0.9 % Sodium Chloride 250 ML 250 MG IV (18:17)
[2021-09-28] VITALS (30 sets, daily range): BP systolic 93–154; BP diastolic 47–84; PULSE 55–107; RESP 14–16; TEMP 33.9–36.5; O2SAT 92–99; BMI 33.5
[2021-09-28] MEDS: Enoxaparin Sodium 40 MG/0.4 ML SYRINGE SUBCUT (00:55)
[2021-09-28] MEDS: Ampicillin Sodium/Sulbactam Na 3 GM in 0.9 % Sodium Chloride 100 ML IV (00:56)
[2021-09-28 05:30] LABS: VBG Base Excess 11.3 mmol/L; VBG HCO3 34 mmol/L (22-26); VBG pCO2 39 mmHg; VBG pH 7.54 (7.32-7.43); VBG pO2 40 mmHg
[2021-09-28 05:34] LABS: MANUAL DIFF FLAG NO
[2021-09-28] MEDS: propofoL 1,000 MG/100 ML VIAL 9.08 MG IVCONT ×2 (05:43→13:00)
[2021-09-28 05:44] LABS: Basophils Absolute Auto 0.1 X10*3/uL (0.0-0.2); Basophils Percent Auto 1.1 % (0-2); Eosinophils Absolute Auto 0.3 X10*3/uL (0.0-0.4); Eosinophils Percent Auto 3.6 % (0-4); Imm Gran Abs Auto 0.06 X10*3/uL (0.00-0.03); Imm Gran Pct Auto 0.8 % (0.0-0.4); Lymphocytes Absolute Auto 1.9 X10*3/uL (1.2-4.9); Lymphocytes Percent Auto 23.8 % (20-40); Mean Corpuscular HGB Conc 30.3 g/dl (31.0-35.0); Mean Corpuscular Hemoglobin 28.1 pg (27.0-33.0); Mean Corpuscular Volume 92.7 fL (80.0-98.0); Mean Platelet Volume 9.9 fL (9.4-12.3); Monocytes Absolute Auto 0.7 X10*3/uL (0.1-1.2); Monocytes Percent Auto 8.6 % (2-11); Neutrophils Absolute Auto 4.9 x10*3/uL (2.0-8.3); Neutrophils Percent Auto 62.1 % (45-73); Platelet Count 282 X10*3/uL (160-400); Red Blood Count 3.56 X10*6/uL (4.20-5.50); Red Cell Distribution Width 13.7 % (11.0-16.0); White Blood Count 7.8 X10*3/uL (4.8-10.8)
[2021-09-28 06:51] LABS: Alanine Aminotransferase 52 U/L (0-31); Albumin Level 3.5 g/dL (3.5-5.0); Alkaline Phosphatase 73 U/L (39-117); Anion Gap 14 (12-20); Aspartate Amino Transferase 47 U/L (5-31); Bilirubin Total 0.5 mg/dL (0.0-1.0); Blood Urea Nitrogen 19 mg/dL (9-16); Calcium 9.4 mg/dL (8.4-10.2); Carbon Dioxide 30 mmol/L (22-29); Chloride 105 mmol/L (96-108); Creatinine Clr Calc Pharmacy 88.1; Estimated Glomerular Filt Rate > 60; Glucose Random 91 mg/dL (60-115); Potassium 3.2 mmol/L (3.3-5.1); Sodium 146 mmol/L (135-145); Total Protein 5.9 g/dL (6.5-8.0)
[2021-09-28 07:22] LABS: Venous Blood Gas Refer to POC result
[2021-09-28] MEDS: Chlorhexidine Gluc Oral Rinse 15 ML MOUTHWASH BUCCAL ×2 (08:52→21:10)
[2021-09-28] MEDS: Furosemide 20 MG/2 ML VIAL 40 MG IVPUSH ×2 (08:52→18:09)
[2021-09-28] MEDS: lamoTRIgine 25 MG TABLET 50 MG PO (08:52)
[2021-09-28] MEDS: Famotidine/PF 20 MG/2 ML VIAL IVPUSH (08:53)
[2021-09-28] MEDS: KCl 20 mEq in 5 % Dextrose 20 MEQ/1,000 ML IV.SOLN 100 MEQ IVCONT (09:39)
--- NOTE | 2021-09-28 09:47 | MHC.CLN ---
F/U PT SCHEDULED FOR TRACH AND PEG TODAY CURRENTLY NPO PT PREVIOUSLY RECEIVED PROMOTE AT GOAL RATE 60ML/HR WITH 240CC FREE WATER Q SHIFT PROVIDED 1440KCALS (1680KCALS WITH SEDATION; 22KCALS/KG BASED ON CMW), 90G PROTEIN (1.2G/KG), 1928CC TOTAL FREE WATER FROM FORMULA AND FLUSHES (25ML/KG) WHEN PEG TO START; RECOMMEND JEVITY 1.0 AT MAX GOAL RATE 70ML/HR WITH 120CC FREE WATER FLUSHES Q 6HRS TO PROVIDE 1781KCALS (23KCALS/KG BASED ON CMW), 74G PROTEIN (.96G/KG), 1967ML TOTAL WATER FROM FORMULA AND FLUSHES (26ML/KG) START NEW FORMULA AT 20ML/HR AND INCREASE BY 10ML Q 4HRS UNTIL MAX GOAL IS REACHED CONTINUE TO MONITOR TOLERANCE, RESIDUALS AND LYTES
--- NOTE | 2021-09-28 12:10 | P.CONAN_ITS ---
HPI - Anesthesia Eval Consult details Narrative: 71 F for trach and peg . respiratory failure , failed extubation . Aortic stenosis severe . HF . Hypernatremia , COPD . TAA, CVA . I had a detailed discussion with the patient s two sons and spoke with daughter on the phone . [facility] Active Problems Active Problems: All Active Problems (Updated 09/25/21 @ 09:22 by Beto Hernandez MD) Pulmonary aspiration (Acute) Failure to wean from mechanical ventilation (Acute) Acute respiratory failure (Acute) Aortic stenosis (Acute) Agitation (Acute) Hypernatremia (Acute) Atrial tachycardia (Acute) CHF exacerbation (Acute) COPD exacerbation (Acute) Altered mental state (Acute) Cerebral infarction (Acute) Acute CVA (cerebrovascular accident) (Acute) Fall (Acute) Thoracic aortic aneurysm (TAA) (Acute) Recurrent incisional hernia (Acute) Acute on chronic diastolic (congestive) heart failure (Acute) Acute on chronic respiratory failure with hypoxia and hypercapnia (Acute) Acute CHF (Acute) Acute metabolic encephalopathy (Acute) CAP (community acquired pneumonia) (Acute) Enuresis (Acute) Urge incontinence (Acute) Respiratory failure with hypoxia and hypercapnia (Acute) COPD (chronic obstructive pulmonary disease) (Acute) Chronic diastolic (congestive) heart failure (Acute) Atrial arrhythmia (Acute) DHEERAJ (obstructive sleep apnea) (Acute) On home oxygen therapy (Acute) Bifascicular block (Acute) Atherosclerotic cardiovascular disease (Acute) Nonrheumatic aortic (valve) stenosis (Acute) Past Medical History Medical History Atherosclerotic cardiovascular disease Atrial arrhythmia Bifascicular block Chronic diastolic (congestive) heart failure COPD (chronic obstructive pulmonary disease) COPD (chronic obstructive pulmonary disease) Enuresis Nonrheumatic aortic (valve) stenosis On home oxygen therapy DHEERAJ (obstructive sleep apnea) Respiratory failure with hypoxia and hypercapnia Thoracic aortic aneurysm (TAA) Urge incontinence Family History Family History Father No problems noted. Mother No problems noted. Family history of problems with anesthesia: No Surgical History Surgical History History of umbilical hernia repair History of Problems with Anesthesia: Unobtainable Social History Social History Household Members: Children Housing: Apartment Housing Other:: lives alone - unsure if house or apt Do you presently have visiting nurse or other home services: No (unknown) Unable to assess alcohol history related to: Unable to respond Alcohol intake: never Patient Tobacco Use Status: Current everyday Tobacco user Use of substances other than those prescribed or required for medical reasons: Unable to respond Currently Displaying Signs/Symptoms of Drug Intoxication Withdrawal: No Advance Directives: Yes Advance Directives on File: Yes Advance Directives Date on File: 05/25/21 Do you have thoughts of harming others: None Do you have a plan to hurt others: No Plan Recently lost weight without trying: Unsure service: No Current occupational status: disabled Meds Allergies Allergy/AdvReac Type Severity Reaction Status Date / Time morphine [Morphine] Allergy Unknown UNKNOWN Verified 05/25/21 12:58 Active Medications: Current Medications Chlorhexidine Gluconate (Chlorhexidine Gluc Oral Rinse 15 Ml Mouthwash) 15 ml BUCCAL DAILY@1900 [facility] Last Admin: 09/27/21 20:38 Dose: 15 ml Documented by: Chlorhexidine Gluconate (Chlorhexidine Gluc Oral Rinse 15 Ml Mouthwash) 15 ml BUCCAL TID [facility] Last Admin: 09/28/21 08:52 Dose: 15 ml Documented by: Enoxaparin Sodium (Enoxaparin Sodium 40 Mg/0.4 Ml Syringe) 40 mg SUBCUT Q24H [facility] Last Admin: 09/28/21 00:55 Dose: 40 mg Documented by: Famotidine (Famotidine/Pf 20 Mg/2 Ml Vial) 20 mg IVPUSH DAILY [facility] Last Admin: 09/28/21 08:53 Dose: 20 mg Documented by: Furosemide (Furosemide 20 Mg/2 Ml Vial) 40 mg IVPUSH BID@0900,1800 [facility]; Protocol Last Admin: 09/28/21 08:52 Dose: 40 mg Documented by: Propofol (Diprivan) 1,000 mg in 100 mls @ 0 mls/hr IVCONT .Q0M [facility]; Protocol Last Admin: 09/28/21 05:43 Dose: 15 mcg/kg/min, 9.08 mls/hr Documented by: Norepinephrine Bitartrate (Levophed) 8 mg in 250 mls @ 0 mls/hr IVCONT .Q0M [facility]; Protocol Last Titration: 09/28/21 09:41 Dose: 0.03 mcg/kg/min, 5.68 mls/hr Documented by: Potassium Chloride/Dextrose () 20 meq in 1,000 mls @ 100 mls/hr IVCONT .Q10H [facility] Last Admin: 09/28/21 09:39 Dose: 100 mls/hr Documented by: Cefazolin Sodium/Dextrose (Ancef) 2 gm in 50 mls @ 100 mls/hr IV PREOP ONE Stop: 09/28/21 12:32 Lactulose (Lactulose 20 Gm/30 Ml Solution) 30 gm PO DAILY [facility] Last Admin: 09/28/21 08:52 Dose: Not Given Documented by: Lamotrigine (Lamotrigine 25 Mg Tablet) 50 mg PO BID [facility] Last Admin: 09/28/21 08:52 Dose: 50 mg Documented by: Levothyroxine Sodium (Levothyroxine Sodium 150 Mcg Tablet) 150 mcg PO DAILY@0600 [facility] Last Admin: 09/28/21 05:40 Dose: Not Given Documented by: Home Medications Medication Instructions Recorded Confirmed Last Taken Type atorvastatin 40 mg tablet 40 mg PO BEDTIME tab 08/19/20 09/11/21 09/09/21 History diltiazem HCl 120 mg 120 mg PO BID cap 08/19/20 09/11/21 09/09/21 History capsule,extended release 12 hr ipratropium 0.5 mg-albuterol 3 mg 3 ml INHALATION BID 08/30/20 09/11/21 09/09/21 History (2.5 mg base)/3 mL nebulization soln clonazepam 0.5 mg tablet 0.25 mg PO BEDTIME PRN tab 10/04/20 09/11/21 08/21/21 History dicyclomine 10 mg capsule 10 mg PO TIDWM cap 10/04/20 09/11/21 09/02/21 History levothyroxine 175 mcg tablet 175 mcg PO DAILY@0630 tab 10/04/20 09/11/21 08/21/21 History omeprazole 20 mg capsule,delayed 20 mg PO DAILY@0630 cap 10/04/20 09/11/21 09/09/21 History release lactulose 10 gram/15 mL oral 15 ml PO BID PRN 10/25/20 09/11/21 08/21/21 History solution furosemide 20 mg tablet 40 mg PO BID@0900,1700 tab 11/30/20 09/11/21 09/09/21 History cyanocobalamin (vitamin B-12) 1,000 mcg IM Q30D 03/31/21 09/11/21 08/21/21 History 1,000 mcg/mL injection solution gabapentin 300 mg capsule 300 mg PO BEDTIME 03/31/21 09/11/21 09/09/21 History aspirin 81 mg chewable tablet 81 mg PO DAILY 05/25/21 09/11/21 09/09/21 History fluticasone furoate 200 1 inh INHALATION BEDTIME 05/25/21 09/11/21 09/09/21 History mcg-vilanterol 25 mcg/dose inhalation powder (Breo Ellipta) oxybutynin chloride 15 mg 15 mg PO BID 05/25/21 09/11/21 09/09/21 History tablet,extended release 24 hr apixaban 2.5 mg tablet 2.5 mg PO BID 09/11/21 09/11/21 09/09/21 History buspirone 7.5 mg tablet 1 tab PO BID 09/11/21 09/11/21 09/09/21 History tiotropium bromide 18 mcg capsule 1 cap INHALATION DAILY 09/11/21 09/11/21 09/09/21 History with inhalation device (Spiriva with HandiHaler) trazodone 50 mg tablet 0.5 tab PO BEDTIME PRN 09/11/21 09/11/21 Unknown History vilazodone 40 mg tablet (Viibryd) 1 tab PO DAILY 09/11/21 09/11/21 09/09/21 History Exam Exam Date and Time: September 28, 2021 1210 Height,Weight and Vital Signs: Height 5 ft 7 in Weight 97.1 kg Last Vital Signs Temp 97.6 F 09/28/21 12:00 Pulse 71 09/28/21 12:00 Resp 14 09/28/21 12:00 BP 100/61 09/28/21 12:00 Pulse Ox 95 09/28/21 12:00 Oxygen Flow Rate 4 09/09/21 22:09 Pertinent Lab Results Pertinent Lab Results: Laboratory Tests 09/09/21 09/09/21 09/09/21 22:40 22:40 22:40 WBC RBC Hgb Hct MCV MCH MCHC RDW Plt Count MPV Immature Gran % (Auto) Neut % (Auto) Lymph % (Auto) [place] % (Auto) Eos % (Auto) Baso % (Auto) Lymph # (Auto) [place] # (Auto) Eos # (Auto) Baso # (Auto) Abs Immat Gran (auto) Absolute Neuts (auto) Absolute Nucleated RBC Nucleated RBC % (auto) Smear Tech's Comments ESR PT 12.0 INR 1.1 O2 Saturation ABG pH at Pt Temp ABG pH (Temp Correct) ABG pCO2 at Pt Temp ABG pCO2 (Temp Corrct ABG pO2 at Pt Temp ABG pO2 (Temp Correct ABG HCO3 ABG Base Excess (Actual) VBG pH VBG pCO2 VBG pO2 VBG HCO3 VBG O2 Saturation VBG Base Excess Sodium 144 Potassium 3.8 Chloride 104 Carbon Dioxide 33 H Anion Gap 11 L BUN 12 Creatinine 0.78 Estim Creat Clear Calc 79.5 Estimated GFR > 60 POC Glucose Random Glucose 129 H Fasting Glucose Lactic Acid Calcium 8.7 Phosphorus Magnesium Total Bilirubin 0.8 Direct Bilirubin AST 19 D ALT 16 Alkaline Phosphatase 114 Troponin I High Sens 35.9 H* D C-Reactive Protein B-Natriuretic Peptide 1378 H Total Protein 7.0 D Albumin 4.2 D Lipase TSH Free T4 Urine Color Urine Appearance Urine pH Ur Specific Divide Urine Protein Urine Glucose (UA) Urine Ketones Urine Blood Urine Nitrite Ur Leukocyte Esterase Urine RBC Urine WBC Ur Squamous Epith Cells Urine Bacteria Vancomycin Trough COVID-19 ([facility]) COVID-19 Clin Com Blood Type Antibody Screen 09/09/21 09/09/21 09/09/21 22:41 22:41 22:41 WBC 9.6 RBC 3.62 L Hgb 10.8 L Hct 36.1 L MCV 99.7 H MCH 29.8 MCHC 29.9 L RDW 12.8 Plt Count 215 MPV 9.1 L Immature Gran % (Auto) 0.6 H Neut % (Auto) 69.4 Lymph % (Auto) 15.6 L [place] % (Auto) 12.0 H Eos % (Auto) 1.6 Baso % (Auto) 0.8 Lymph # (Auto) 1.5 [place] # (Auto) 1.2 Eos # (Auto) 0.2 Baso # (Auto) 0.1 Abs Immat Gran (auto) 0.06 H Absolute Neuts (auto) 6.7 Absolute Nucleated RBC 0.000 Nucleated RBC % (auto) 0.0 Smear Tech's Comments ESR PT INR O2 Saturation ABG pH at Pt Temp ABG pH (Temp Correct) ABG pCO2 at Pt Temp ABG pCO2 (Temp Corrct ABG pO2 at Pt Temp ABG pO2 (Temp Correct ABG HCO3 ABG Base Excess (Actual) VBG pH VBG pCO2 VBG pO2 VBG HCO3 VBG O2 Saturation VBG Base Excess Sodium Potassium Chloride Carbon Dioxide Anion Gap BUN Creatinine Estim Creat Clear Calc Estimated GFR POC Glucose Random Glucose Fasting Glucose Lactic Acid 0.5 Calcium Phosphorus Magnesium Total Bilirubin Direct Bilirubin AST ALT Alkaline Phosphatase Troponin I High Sens C-Reactive Protein B-Natriuretic Peptide Total Protein Albumin Lipase TSH Free T4 Urine Color Urine Appearance Urine pH Ur Specific Divide Urine Protein Urine Glucose (UA) Urine Ketones Urine Blood Urine Nitrite Ur Leukocyte Esterase Urine RBC Urine WBC Ur Squamous Epith Cells Urine Bacteria Vancomycin Trough COVID-19 ([facility]) Negative COVID-19 Clin Com See Note Blood Type Antibody Screen 09/09/21 09/09/21 09/10/21 22:41 22:48 00:58 WBC RBC Hgb Hct MCV MCH MCHC RDW Plt Count MPV Immature Gran % (Auto) Neut % (Auto) Lymph % (Auto) [place] % (Auto) Eos % (Auto) Baso % (Auto) Lymph # (Auto) [place] # (Auto) Eos # (Auto) Baso # (Auto) Abs Immat Gran (auto) Absolute Neuts (auto) Absolute Nucleated RBC Nucleated RBC % (auto) Smear Tech's Comments ESR PT INR O2 Saturation 98.0 ABG pH at Pt Temp 7.41 ABG pH (Temp Correct) 7.40 ABG pCO2 at Pt Temp 53 H ABG pCO2 (Temp Corrct 53 H ABG pO2 at Pt Temp 91 ABG pO2 (Temp Correct 91 ABG HCO3 34 H ABG Base Excess (Actual) 7.8 VBG pH 7.23 L VBG pCO2 87 VBG pO2 82 VBG HCO3 37 H VBG O2 Saturation 93.0 VBG Base Excess 6.4 Sodium Potassium Chloride Carbon Dioxide Anion Gap BUN Creatinine Estim Creat Clear Calc Estimated GFR POC Glucose Random Glucose Fasting Glucose Lactic Acid Calcium Phosphorus Magnesium Total Bilirubin Direct Bilirubin AST ALT Alkaline Phosphatase Troponin I High Sens C-Reactive Protein B-Natriuretic Peptide Total Protein Albumin Lipase TSH Free T4 Urine Color YELLOW Urine Appearance CLEAR Urine pH 6.5 Ur Specific Divide 1.010 Urine Protein NEG Urine Glucose (UA) NEG Urine Ketones NEG Urine Blood NEG Urine Nitrite NEG Ur Leukocyte Esterase 2+ H Urine RBC 1-4 Urine WBC 15-29 H Ur Squamous Epith Cells 1+ Urine Bacteria 2+ Vancomycin Trough COVID-19 ([facility]) COVID-19 Clin Com Blood Type Antibody Screen 09/10/21 09/10/21 09/10/21 04:00 04:00 04:00 WBC 12.8 H RBC 3.48 L Hgb 10.3 L Hct 33.8 L MCV 97.1 MCH 29.6 MCHC 30.5 L RDW 12.7 Plt Count 224 MPV 9.5 Immature Gran % (Auto) 0.4 Neut % (Auto) 79.6 H Lymph % (Auto) 6.9 L [place] % (Auto) 12.4 H Eos % (Auto) 0.3 Baso % (Auto) 0.4 Lymph # (Auto) 0.9 L [place] # (Auto) 1.6 H Eos # (Auto) 0.0 Baso # (Auto) 0.1 Abs Immat Gran (auto) 0.05 H Absolute Neuts (auto) 10.2 H Absolute Nucleated RBC 0.000 Nucleated RBC % (auto) 0.0 Smear Tech's Comments ESR PT INR O2 Saturation ABG pH at Pt Temp ABG pH (Temp Correct) ABG pCO2 at Pt Temp ABG pCO2 (Temp Corrct ABG pO2 at Pt Temp ABG pO2 (Temp Correct ABG HCO3 ABG Base Excess (Actual) VBG pH VBG pCO2 VBG pO2 VBG HCO3 VBG O2 Saturation VBG Base Excess Sodium 145 Potassium 3.1 L Chloride 103 Carbon Dioxide 29 Anion Gap 16 BUN 13 Creatinine 0.73 Estim Creat Clear Calc 85.9 Estimated GFR > 60 POC Glucose Random Glucose Fasting Glucose 122 H Lactic Acid 0.9 Calcium 8.3 L Phosphorus Magnesium Total Bilirubin 1.3 H Direct Bilirubin 0.6 H AST 21 ALT 17 Alkaline Phosphatase 112 Troponin I High Sens C-Reactive Protein 0.99 H B-Natriuretic Peptide Total Protein 6.5 Albumin 3.9 Lipase TSH Free T4 Urine Color Urine Appearance Urine pH Ur Specific Divide Urine Protein Urine Glucose (UA) Urine Ketones Urine Blood Urine Nitrite Ur Leukocyte Esterase Urine RBC Urine WBC Ur Squamous Epith Cells Urine Bacteria Vancomycin Trough COVID-19 ([facility]) COVID-19 [place] Blood Type Antibody Screen 09/10/21 09/10/21 09/11/21 05:27 22:18 00:53 WBC RBC Hgb Hct MCV MCH MCHC RDW Plt Count MPV Immature Gran % (Auto) Neut % (Auto) Lymph % (Auto) [place] % (Auto) Eos % (Auto) Baso % (Auto) Lymph # (Auto) [place] # (Auto) Eos # (Auto) Baso # (Auto) Abs Immat Gran (auto) Absolute Neuts (auto) Absolute Nucleated RBC Nucleated RBC % (auto) Smear Tech's Comments ESR PT INR O2 Saturation ABG pH at Pt Temp ABG pH (Temp Correct) ABG pCO2 at Pt Temp ABG pCO2 (Temp Corrct ABG pO2 at Pt Temp ABG pO2 (Temp Correct ABG HCO3 ABG Base Excess (Actual) VBG pH 7.47 H VBG pCO2 48 VBG pO2 42 VBG HCO3 35 H VBG O2 Saturation 73.0 VBG Base Excess 10.5 Sodium 146 H Potassium 3.5 Chloride 108 Carbon Dioxide 31 H Anion Gap 11 L BUN 17 H Creatinine 0.95 Estim Creat Clear Calc 66.0 Estimated GFR 58 POC Glucose Random Glucose 171 H Fasting Glucose Lactic Acid Calcium 8.6 Phosphorus 3.4 Magnesium 2.3 Total Bilirubin Direct Bilirubin AST ALT Alkaline Phosphatase Troponin I High Sens C-Reactive Protein B-Natriuretic Peptide Total Protein Albumin Lipase TSH Free T4 Urine Color Urine Appearance Urine pH Ur Specific Divide Urine Protein Urine Glucose (UA) Urine Ketones Urine Blood Urine Nitrite Ur Leukocyte Esterase Urine RBC Urine WBC Ur Squamous Epith Cells Urine Bacteria Vancomycin Trough 14.1 COVID-19 ([facility]) COVID-19 [place] Blood Type Antibody Screen 09/11/21 09/11/21 09/11/21 05:14 05:14 05:18 WBC 9.5 RBC 3.33 L Hgb 9.7 L Hct 32.6 L MCV 97.9 MCH 29.1 MCHC 29.8 L RDW 13.0 Plt Count 261 MPV 9.9 Immature Gran % (Auto) 0.5 H Neut % (Auto) 93.0 H Lymph % (Auto) 3.1 L [place] % (Auto) 3.3 Eos % (Auto) 0.0 Baso % (Auto) 0.1 Lymph # (Auto) 0.3 L [place] # (Auto) 0.3 Eos # (Auto) 0.0 Baso # (Auto) 0.0 Abs Immat Gran (auto) 0.05 H Absolute Neuts (auto) 8.9 H Absolute Nucleated RBC 0.000 Nucleated RBC % (auto) 0.0 Smear Tech's Comments VERIFIED ESR PT INR O2 Saturation ABG pH at Pt Temp ABG pH (Temp Correct) ABG pCO2 at Pt Temp ABG pCO2 (Temp Corrct ABG pO2 at Pt Temp ABG pO2 (Temp Correct ABG HCO3 ABG Base Excess (Actual) VBG pH 7.41 VBG pCO2 49 VBG pO2 47 VBG HCO3 31 H VBG O2 Saturation 74.0 VBG Base Excess 5.9 Sodium 148 H Potassium 3.5 Chloride 108 Carbon Dioxide 29 Anion Gap 15 BUN 21 H Creatinine 1.02 Estim Creat Clear Calc 61.5 Estimated GFR 54 POC Glucose Random Glucose 160 H Fasting Glucose Lactic Acid Calcium 8.4 Phosphorus 4.2 Magnesium Total Bilirubin 0.7 Direct Bilirubin AST 14 ALT 13 Alkaline Phosphatase 91 Troponin I High Sens C-Reactive Protein B-Natriuretic Peptide Total Protein 6.1 L Albumin 3.6 Lipase TSH Free T4 Urine Color Urine Appearance Urine pH Ur Specific Divide Urine Protein Urine Glucose (UA) Urine Ketones Urine Blood Urine Nitrite Ur Leukocyte Esterase Urine RBC Urine WBC Ur Squamous Epith Cells Urine Bacteria Vancomycin Trough COVID-19 ([facility]) COVID-19 Clin Com Blood Type Antibody Screen 09/12/21 09/12/21 09/12/21 05:28 05:28 05:28 WBC 13.4 H RBC 3.29 L Hgb 9.7 L Hct 32.3 L MCV 98.2 H MCH 29.5 MCHC 30.0 L RDW 13.2 Plt Count 209 MPV 9.6 Immature Gran % (Auto) 1.0 H Neut % (Auto) 91.9 H Lymph % (Auto) 2.4 L [place] % (Auto) 4.6 Eos % (Auto) 0.0 Baso % (Auto) 0.1 Lymph # (Auto) 0.3 L [place] # (Auto) 0.6 Eos # (Auto) 0.0 Baso # (Auto) 0.0 Abs Immat Gran (auto) 0.14 H Absolute Neuts (auto) 12.3 H Absolute Nucleated RBC 0.000 Nucleated RBC % (auto) 0.0 Smear Tech's Comments VERIFIED ESR PT INR O2 Saturation ABG pH at Pt Temp ABG pH (Temp Correct) ABG pCO2 at Pt Temp ABG pCO2 (Temp Corrct ABG pO2 at Pt Temp ABG pO2 (Temp Correct ABG HCO3 ABG Base Excess (Actual) VBG pH VBG pCO2 VBG pO2 VBG HCO3 VBG O2 Saturation VBG Base Excess Sodium 141 Potassium 3.2 L Chloride 109 H Carbon Dioxide 22 Anion Gap 13 BUN 23 H Creatinine Cancelled 0.86 Estim Creat Clear Calc Cancelled 77.9 Estimated GFR Cancelled > 60 POC Glucose Random Glucose 137 H Fasting Glucose Lactic Acid Calcium 8.0 L Phosphorus 3.9 Magnesium Total Bilirubin 0.5 Direct Bilirubin AST 11 ALT 13 Alkaline Phosphatase 73 Troponin I High Sens C-Reactive Protein 0.53 H B-Natriuretic Peptide Total Protein 5.7 L Albumin 3.4 L Lipase TSH 0.30 L Free T4 0.93 Urine Color Urine Appearance Urine pH Ur Specific [place] Urine Protein Urine Glucose (UA) Urine Ketones Urine Blood Urine Nitrite Ur Leukocyte Esterase Urine RBC Urine WBC Ur Squamous Epith Cells Urine Bacteria Vancomycin Trough COVID-19 ([facility]) COVID-19 Clin Com Blood Type Antibody Screen 09/12/21 09/13/21 09/13/21 05:28 05:24 05:24 WBC 19.2 H RBC 3.60 L Hgb 10.6 L Hct 34.7 L MCV 96.4 MCH 29.4 MCHC 30.5 L RDW 12.9 Plt Count 260 MPV 9.9 Immature Gran % (Auto) 0.7 H Neut % (Auto) 85.1 H Lymph % (Auto) 2.8 L [place] % (Auto) 11.3 H Eos % (Auto) 0.0 Baso % (Auto) 0.1 Lymph # (Auto) 0.5 L [place] # (Auto) 2.2 H Eos # (Auto) 0.0 Baso # (Auto) 0.0 Abs Immat Gran (auto) 0.13 H Absolute Neuts (auto) 16.3 H Absolute Nucleated RBC 0.000 Nucleated RBC % (auto) 0.0 Smear Tech's Comments VERIFIED ESR PT INR O2 Saturation ABG pH at Pt Temp ABG pH (Temp Correct) ABG pCO2 at Pt Temp ABG pCO2 (Temp Corrct ABG pO2 at Pt Temp ABG pO2 (Temp Correct ABG HCO3 ABG Base Excess (Actual) VBG pH 7.39 VBG pCO2 39 VBG pO2 68 VBG HCO3 23 VBG O2 Saturation 92.0 VBG Base Excess -0.9 Sodium 145 Potassium 3.4 Chloride 105 Carbon Dioxide 33 H Anion Gap 10 L BUN 31 H Creatinine 0.93 Estim Creat Clear Calc 71.6 Estimated GFR 60 POC Glucose Random Glucose 131 H Fasting Glucose Lactic Acid Calcium 8.8 D Phosphorus 4.3 Magnesium 2.6 Total Bilirubin Direct Bilirubin AST ALT Alkaline Phosphatase Troponin I High Sens C-Reactive Protein B-Natriuretic Peptide Total Protein Albumin Lipase TSH Free T4 Urine Color Urine Appearance Urine pH Ur Specific Divide Urine Protein Urine Glucose (UA) Urine Ketones Urine Blood Urine Nitrite Ur Leukocyte Esterase Urine RBC Urine WBC Ur Squamous Epith Cells Urine Bacteria Vancomycin Trough COVID-19 ([facility]) COVID-19 Clin Com Blood Type Antibody Screen 09/13/21 09/13/21 09/13/21 05:24 05:25 10:13 WBC RBC Hgb Hct MCV MCH MCHC RDW Plt Count MPV Immature Gran % (Auto) Neut % (Auto) Lymph % (Auto) [place] % (Auto) Eos % (Auto) Baso % (Auto) Lymph # (Auto) [place] # (Auto) Eos # (Auto) Baso # (Auto) Abs Immat Gran (auto) Absolute Neuts (auto) Absolute Nucleated RBC Nucleated RBC % (auto) Smear Tech's Comments ESR PT INR O2 Saturation ABG pH at Pt Temp ABG pH (Temp Correct) ABG pCO2 at Pt Temp ABG pCO2 (Temp Corrct ABG pO2 at Pt Temp ABG pO2 (Temp Correct ABG HCO3 ABG Base Excess (Actual) VBG pH 7.37 VBG pCO2 59 VBG pO2 46 VBG HCO3 35 H VBG O2 Saturation 71.0 VBG Base Excess 8.3 Sodium Potassium Chloride Carbon Dioxide Anion Gap BUN Creatinine Estim Creat Clear Calc Estimated GFR POC Glucose Random Glucose Fasting Glucose Lactic Acid Calcium Phosphorus Magnesium Total Bilirubin Direct Bilirubin AST ALT Alkaline Phosphatase Troponin I High Sens C-Reactive Protein B-Natriuretic Peptide 2832 H Total Protein Albumin Lipase 7 L TSH Free T4 Urine Color Urine Appearance Urine pH Ur Specific [place] Urine Protein Urine Glucose (UA) Urine Ketones Urine Blood Urine Nitrite Ur Leukocyte Esterase Urine RBC Urine WBC Ur Squamous Epith Cells Urine Bacteria Vancomycin Trough COVID-19 ([facility]) COVID-19 [employer] Com Blood Type Antibody Screen 09/13/21 09/13/21 09/14/21 12:57 17:38 00:55 WBC 7.9 RBC 3.33 L Hgb 9.9 L Hct 32.7 L MCV 98.2 H MCH 29.7 MCHC 30.3 L RDW 13.1 Plt Count 161 D MPV 9.0 L Immature Gran % (Auto) 0.3 Neut % (Auto) 80.6 H Lymph % (Auto) 4.6 L [place] % (Auto) 13.6 H Eos % (Auto) 0.9 Baso % (Auto) 0.0 Lymph # (Auto) 0.4 L [place] # (Auto) 1.1 Eos # (Auto) 0.1 Baso # (Auto) 0.0 Abs Immat Gran (auto) 0.02 Absolute Neuts (auto) 6.4 Absolute Nucleated RBC 0.000 Nucleated RBC % (auto) 0.0 Smear Tech's Comments ESR PT INR O2 Saturation ABG pH at Pt Temp ABG pH (Temp Correct) ABG pCO2 at Pt Temp ABG pCO2 (Temp Corrct ABG pO2 at Pt Temp ABG pO2 (Temp Correct ABG HCO3 ABG Base Excess (Actual) VBG pH 7.32 7.36 VBG pCO2 65 63 VBG pO2 49 46 VBG HCO3 33 H 36 H VBG O2 Saturation 75.0 72.0 VBG Base Excess 6.0 9.1 Sodium Potassium Chloride Carbon Dioxide Anion Gap BUN Creatinine Estim Creat Clear Calc Estimated GFR POC Glucose Random Glucose Fasting Glucose Lactic Acid Calcium Phosphorus Magnesium Total Bilirubin Direct Bilirubin AST ALT Alkaline Phosphatase Troponin I High Sens C-Reactive Protein B-Natriuretic Peptide Total Protein Albumin Lipase TSH Free T4 Urine Color Urine Appearance Urine pH Ur Specific [place] Urine Protein Urine Glucose (UA) Urine Ketones Urine Blood Urine Nitrite Ur Leukocyte Esterase Urine RBC Urine WBC Ur Squamous Epith Cells Urine Bacteria Vancomycin Trough COVID-19 ([facility]) COVID-19 [employer] Com Blood Type Antibody Screen 09/14/21 09/14/21 09/14/21 00:55 00:57 01:50 WBC RBC Hgb Hct MCV MCH MCHC RDW Plt Count MPV Immature Gran % (Auto) Neut % (Auto) Lymph % (Auto) [place] % (Auto) Eos % (Auto) Baso % (Auto) Lymph # (Auto) [place] # (Auto) Eos # (Auto) Baso # (Auto) Abs Immat Gran (auto) Absolute Neuts (auto) Absolute Nucleated RBC Nucleated RBC % (auto) Smear Tech's Comments ESR PT INR O2 Saturation ABG pH at Pt Temp ABG pH (Temp Correct) ABG pCO2 at Pt Temp ABG pCO2 (Temp Corrct ABG pO2 at Pt Temp ABG pO2 (Temp Correct ABG HCO3 ABG Base Excess (Actual) VBG pH 7.38 VBG pCO2 66 VBG pO2 47 VBG HCO3 39 H VBG O2 Saturation 75.0 VBG Base Excess 12.0 Sodium 148 H Potassium 3.5 Chloride 108 Carbon Dioxide 33 H Anion Gap 11 L BUN 27 H Creatinine 0.68 Estim Creat Clear Calc 97.8 Estimated GFR > 60 POC Glucose Random Glucose 102 Fasting Glucose Lactic Acid Calcium 8.1 L D Phosphorus Magnesium Total Bilirubin Direct Bilirubin AST ALT Alkaline Phosphatase Troponin I High Sens C-Reactive Protein B-Natriuretic Peptide Total Protein Albumin Lipase TSH Free T4 Urine Color Urine Appearance Urine pH Ur Specific Divide Urine Protein Urine Glucose (UA) Urine Ketones Urine Blood Urine Nitrite Ur Leukocyte Esterase Urine RBC Urine WBC Ur Squamous Epith Cells Urine Bacteria Vancomycin Trough 12.6 COVID-19 ([facility]) COVID-19 Clin Com Blood Type Antibody Screen 09/14/21 09/14/21 09/14/21 05:34 05:34 05:34 WBC 8.9 RBC 3.34 L Hgb 9.7 L Hct 32.9 L MCV 98.5 H MCH 29.0 MCHC 29.5 L RDW 12.9 Plt Count 208 D MPV 10.1 Immature Gran % (Auto) 0.1 Neut % (Auto) 80.5 H Lymph % (Auto) 6.0 L [place] % (Auto) 12.1 H Eos % (Auto) 1.3 Baso % (Auto) 0.0 Lymph # (Auto) 0.5 L [place] # (Auto) 1.1 Eos # (Auto) 0.1 Baso # (Auto) 0.0 Abs Immat Gran (auto) 0.01 Absolute Neuts (auto) 7.2 Absolute Nucleated RBC 0.000 Nucleated RBC % (auto) 0.0 Smear Tech's Comments ESR PT INR O2 Saturation ABG pH at Pt Temp ABG pH (Temp Correct) ABG pCO2 at Pt Temp ABG pCO2 (Temp Corrct ABG pO2 at Pt Temp ABG pO2 (Temp Correct ABG HCO3 ABG Base Excess (Actual) VBG pH VBG pCO2 VBG pO2 VBG HCO3 VBG O2 Saturation VBG Base Excess Sodium 147 H Potassium 3.6 Chloride 109 H Carbon Dioxide 33 H Anion Gap 9 L BUN 26 H Creatinine 0.64 Estim Creat Clear Calc 104.0 Estimated GFR > 60 POC Glucose Random Glucose 95 Fasting Glucose Lactic Acid Calcium 8.1 L Phosphorus 2.8 Magnesium 2.4 Total Bilirubin Direct Bilirubin AST ALT Alkaline Phosphatase Troponin I High Sens C-Reactive Protein B-Natriuretic Peptide 2235 H Total Protein Albumin Lipase TSH Free T4 Urine Color Urine Appearance Urine pH Ur Specific [place] Urine Protein Urine Glucose (UA) Urine Ketones Urine Blood Urine Nitrite Ur Leukocyte Esterase Urine RBC Urine WBC Ur Squamous Epith Cells Urine Bacteria Vancomycin Trough COVID-19 ([facility]) COVID-19 Clin Com Blood Type Antibody Screen 09/14/21 09/14/21 09/14/21 05:34 07:10 08:46 WBC RBC Hgb Hct MCV MCH MCHC RDW Plt Count MPV Immature Gran % (Auto) Neut % (Auto) Lymph % (Auto) [place] % (Auto) Eos % (Auto) Baso % (Auto) Lymph # (Auto) [place] # (Auto) Eos # (Auto) Baso # (Auto) Abs Immat Gran (auto) Absolute Neuts (auto) Absolute Nucleated RBC Nucleated RBC % (auto) Smear Tech's Comments ESR 14 PT INR O2 Saturation ABG pH at Pt Temp ABG pH (Temp Correct) ABG pCO2 at Pt Temp ABG pCO2 (Temp Corrct ABG pO2 at Pt Temp ABG pO2 (Temp Correct ABG HCO3 ABG Base Excess (Actual) VBG pH 7.36 VBG pCO2 66 VBG pO2 47 VBG HCO3 38 H VBG O2 Saturation 75.0 VBG Base Excess 10.5 Sodium Potassium Chloride Carbon Dioxide Anion Gap BUN Creatinine Estim Creat Clear Calc Estimated GFR POC Glucose 91 Random Glucose Fasting Glucose Lactic Acid Calcium Phosphorus Magnesium Total Bilirubin Direct Bilirubin AST ALT Alkaline Phosphatase Troponin I High Sens C-Reactive Protein B-Natriuretic Peptide Total Protein Albumin Lipase TSH Free T4 Urine Color Urine Appearance Urine pH Ur Specific [place] Urine Protein Urine Glucose (UA) Urine Ketones Urine Blood Urine Nitrite Ur Leukocyte Esterase Urine RBC Urine WBC Ur Squamous Epith Cells Urine Bacteria Vancomycin Trough COVID-19 ([facility]) COVID-19 [employer] Com Blood Type Antibody Screen 09/14/21 09/15/21 09/15/21 10:38 05:34 05:34 WBC 10.1 RBC 3.19 L Hgb 9.2 L Hct 31.9 L MCV 100.0 H MCH 28.8 MCHC 28.8 L RDW 13.0 Plt Count 202 MPV 9.7 Immature Gran % (Auto) 0.3 Neut % (Auto) 71.2 Lymph % (Auto) 13.7 L [place] % (Auto) 11.2 H Eos % (Auto) 3.6 Baso % (Auto) 0.0 Lymph # (Auto) 1.4 [place] # (Auto) 1.1 Eos # (Auto) 0.4 Baso # (Auto) 0.0 Abs Immat Gran (auto) 0.03 Absolute Neuts (auto) 7.2 Absolute Nucleated RBC 0.000 Nucleated RBC % (auto) 0.0 Smear Tech's Comments ESR PT INR O2 Saturation ABG pH at Pt Temp ABG pH (Temp Correct) ABG pCO2 at Pt Temp ABG pCO2 (Temp Corrct ABG pO2 at Pt Temp ABG pO2 (Temp Correct ABG HCO3 ABG Base Excess (Actual) VBG pH 7.42 VBG pCO2 55 VBG pO2 79 VBG HCO3 36 H VBG O2 Saturation 96.0 VBG Base Excess 10.1 Sodium 149 H Potassium 3.5 Chloride 111 H Carbon Dioxide 34 H Anion Gap 8 L BUN 20 H Creatinine 0.62 Estim Creat Clear Calc 107.4 Estimated GFR > 60 POC Glucose Random Glucose 108 Fasting Glucose Lactic Acid Calcium 8.2 L Phosphorus 2.4 L Magnesium 2.4 Total Bilirubin Direct Bilirubin AST ALT Alkaline Phosphatase Troponin I High Sens C-Reactive Protein B-Natriuretic Peptide Total Protein Albumin Lipase TSH Free T4 Urine Color Urine Appearance Urine pH Ur Specific [place] Urine Protein Urine Glucose (UA) Urine Ketones Urine Blood Urine Nitrite Ur Leukocyte Esterase Urine RBC Urine WBC Ur Squamous Epith Cells Urine Bacteria Vancomycin Trough COVID-19 ([facility]) COVID-19 [employer] Com Blood Type Antibody Screen 09/15/21 09/15/21 09/15/21 05:34 05:48 13:07 WBC RBC Hgb Hct MCV MCH MCHC RDW Plt Count MPV Immature Gran % (Auto) Neut % (Auto) Lymph % (Auto) [place] % (Auto) Eos % (Auto) Baso % (Auto) Lymph # (Auto) [place] # (Auto) Eos # (Auto) Baso # (Auto) Abs Immat Gran (auto) Absolute Neuts (auto) Absolute Nucleated RBC Nucleated RBC % (auto) Smear Tech's Comments ESR PT INR O2 Saturation ABG pH at Pt Temp ABG pH (Temp Correct) ABG pCO2 at Pt Temp ABG pCO2 (Temp Corrct ABG pO2 at Pt Temp ABG pO2 (Temp Correct ABG HCO3 ABG Base Excess (Actual) VBG pH 7.35 7.49 H VBG pCO2 70 44 VBG pO2 57 38 VBG HCO3 39 H 33 H VBG O2 Saturation 86.0 70.0 VBG Base Excess 11.3 9.7 Sodium Potassium Chloride Carbon Dioxide Anion Gap BUN Creatinine Estim Creat Clear Calc Estimated GFR POC Glucose Random Glucose Fasting Glucose Lactic Acid Calcium Phosphorus Magnesium Total Bilirubin Direct Bilirubin AST ALT Alkaline Phosphatase Troponin I High Sens C-Reactive Protein B-Natriuretic Peptide 2049 H Total Protein Albumin Lipase TSH Free T4 Urine Color Urine Appearance Urine pH Ur Specific [place] Urine Protein Urine Glucose (UA) Urine Ketones Urine Blood Urine Nitrite Ur Leukocyte Esterase Urine RBC Urine WBC Ur Squamous Epith Cells Urine Bacteria Vancomycin Trough COVID-19 ([facility]) COVID-19 Clin Com Blood Type Antibody Screen 09/15/21 09/15/21 09/16/21 13:08 13:08 01:26 WBC 11.6 H RBC 3.59 L Hgb 10.5 L Hct 36.0 L MCV 100.3 H MCH 29.2 MCHC 29.2 L RDW 13.2 Plt Count 223 MPV 9.7 Immature Gran % (Auto) 0.9 H Neut % (Auto) 73.5 H Lymph % (Auto) 12.9 L [place] % (Auto) 8.9 Eos % (Auto) 3.6 Baso % (Auto) 0.2 Lymph # (Auto) 1.5 [place] # (Auto) 1.0 Eos # (Auto) 0.4 Baso # (Auto) 0.0 Abs Immat Gran (auto) 0.11 H Absolute Neuts (auto) 8.5 H Absolute Nucleated RBC 0.000 Nucleated RBC % (auto) 0.0 Smear Tech's Comments ESR PT INR O2 Saturation ABG pH at Pt Temp ABG pH (Temp Correct) ABG pCO2 at Pt Temp ABG pCO2 (Temp Corrct ABG pO2 at Pt Temp ABG pO2 (Temp Correct ABG HCO3 ABG Base Excess (Actual) VBG pH VBG pCO2 VBG pO2 VBG HCO3 VBG O2 Saturation VBG Base Excess Sodium 147 H Potassium 4.3 D Chloride 111 H Carbon Dioxide 28 Anion Gap 12 BUN 19 H Creatinine 0.61 Estim Creat Clear Calc 106.5 Estimated GFR > 60 POC Glucose Random Glucose 106 Fasting Glucose Lactic Acid Calcium 8.5 Phosphorus Magnesium Total Bilirubin Direct Bilirubin AST ALT Alkaline Phosphatase Troponin I High Sens C-Reactive Protein B-Natriuretic Peptide Total Protein Albumin Lipase TSH Free T4 Urine Color Urine Appearance Urine pH Ur Specific [place] Urine Protein Urine Glucose (UA) Urine Ketones Urine Blood Urine Nitrite Ur Leukocyte Esterase Urine RBC Urine WBC Ur Squamous Epith Cells Urine Bacteria Vancomycin Trough 20.1 H COVID-19 ([facility]) COVID-19 Clin Com Blood Type Antibody Screen 09/16/21 09/16/21 09/16/21 01:26 01:26 01:26 WBC RBC Hgb Hct MCV MCH MCHC RDW Plt Count MPV Immature Gran % (Auto) Neut % (Auto) Lymph % (Auto) [place] % (Auto) Eos % (Auto) Baso % (Auto) Lymph # (Auto) [place] # (Auto) Eos # (Auto) Baso # (Auto) Abs Immat Gran (auto) Absolute Neuts (auto) Absolute Nucleated RBC Nucleated RBC % (auto) Smear Tech's Comments ESR PT INR O2 Saturation ABG pH at Pt Temp ABG pH (Temp Correct) ABG pCO2 at Pt Temp ABG pCO2 (Temp Corrct ABG pO2 at Pt Temp ABG pO2 (Temp Correct ABG HCO3 ABG Base Excess (Actual) VBG pH VBG pCO2 VBG pO2 VBG HCO3 VBG O2 Saturation VBG Base Excess Sodium 146 H Potassium 4.4 Chloride 109 H Carbon Dioxide 30 H Anion Gap 11 L BUN 17 H Creatinine 0.66 Estim Creat Clear Calc 98.4 Estimated GFR > 60 POC Glucose Random Glucose 125 H Fasting Glucose Lactic Acid Calcium 8.7 Phosphorus 3.3 Magnesium 2.4 Total Bilirubin Direct Bilirubin AST ALT Alkaline Phosphatase Troponin I High Sens 48.6 H C-Reactive Protein B-Natriuretic Peptide 1781 H Total Protein Albumin Lipase TSH Free T4 Urine Color Urine Appearance Urine pH Ur Specific [place] Urine Protein Urine Glucose (UA) Urine Ketones Urine Blood Urine Nitrite Ur Leukocyte Esterase Urine RBC Urine WBC Ur Squamous Epith Cells Urine Bacteria Vancomycin Trough COVID-19 ([facility]) COVID-19 Clin Com Blood Type Antibody Screen 09/16/21 09/16/21 09/16/21 01:28 05:33 05:33 WBC 13.0 H RBC 3.42 L Hgb 9.8 L Hct 34.1 L MCV 99.7 H MCH 28.7 MCHC 28.7 L RDW 13.2 Plt Count 205 MPV 10.0 Immature Gran % (Auto) 0.7 H Neut % (Auto) 74.4 H Lymph % (Auto) 11.2 L [place] % (Auto) 10.4 Eos % (Auto) 3.2 Baso % (Auto) 0.1 Lymph # (Auto) 1.5 [place] # (Auto) 1.4 H Eos # (Auto) 0.4 Baso # (Auto) 0.0 Abs Immat Gran (auto) 0.09 H Absolute Neuts (auto) 9.7 H Absolute Nucleated RBC 0.000 Nucleated RBC % (auto) 0.0 Smear Tech's Comments ESR PT INR O2 Saturation ABG pH at Pt Temp ABG pH (Temp Correct) ABG pCO2 at Pt Temp ABG pCO2 (Temp Corrct ABG pO2 at Pt Temp ABG pO2 (Temp Correct ABG HCO3 ABG Base Excess (Actual) VBG pH 7.31 L VBG pCO2 74 VBG pO2 45 VBG HCO3 38 H VBG O2 Saturation 71.0 VBG Base Excess 9.2 Sodium 145 Potassium 4.2 Chloride 107 Carbon Dioxide 33 H Anion Gap 9 L BUN 16 Creatinine 0.63 Estim Creat Clear Calc 103.1 Estimated GFR > 60 POC Glucose Random Glucose 117 H Fasting Glucose Lactic Acid Calcium 8.6 Phosphorus 2.9 Magnesium 2.3 Total Bilirubin Direct Bilirubin AST ALT Alkaline Phosphatase Troponin I High Sens C-Reactive Protein B-Natriuretic Peptide Total Protein Albumin Lipase TSH Free T4 Urine Color Urine Appearance Urine pH Ur Specific [place] Urine Protein Urine Glucose (UA) Urine Ketones Urine Blood Urine Nitrite Ur Leukocyte Esterase Urine RBC Urine WBC Ur Squamous Epith Cells Urine Bacteria Vancomycin Trough COVID-19 ([facility]) COVID-19 [employer] Com Blood Type Antibody Screen 09/16/21 09/16/21 09/17/21 05:33 09:53 05:26 WBC RBC Hgb Hct MCV MCH MCHC RDW Plt Count MPV Immature Gran % (Auto) Neut % (Auto) Lymph % (Auto) [place] % (Auto) Eos % (Auto) Baso % (Auto) Lymph # (Auto) [place] # (Auto) Eos # (Auto) Baso # (Auto) Abs Immat Gran (auto) Absolute Neuts (auto) Absolute Nucleated RBC Nucleated RBC % (auto) Smear Tech's Comments ESR PT INR O2 Saturation ABG pH at Pt Temp ABG pH (Temp Correct) ABG pCO2 at Pt Temp ABG pCO2 (Temp Corrct ABG pO2 at Pt Temp ABG pO2 (Temp Correct ABG HCO3 ABG Base Excess (Actual) VBG pH 7.52 H 7.58 H VBG pCO2 42 36 VBG pO2 36 35 VBG HCO3 34 H 34 H VBG O2 Saturation 66.0 60.0 VBG Base Excess 11.1 12.3 Sodium Potassium Chloride Carbon Dioxide Anion Gap BUN Creatinine Estim Creat Clear Calc Estimated GFR POC Glucose Random Glucose Fasting Glucose Lactic Acid Calcium Phosphorus Magnesium Total Bilirubin Direct Bilirubin AST ALT Alkaline Phosphatase Troponin I High Sens C-Reactive Protein B-Natriuretic Peptide 1767 H Total Protein Albumin Lipase TSH Free T4 Urine Color Urine Appearance Urine pH Ur Specific [place] Urine Protein Urine Glucose (UA) Urine Ketones Urine Blood Urine Nitrite Ur Leukocyte Esterase Urine RBC Urine WBC Ur Squamous Epith Cells Urine Bacteria Vancomycin Trough COVID-19 ([facility]) COVID-19 [employer] Com Blood Type Antibody Screen 09/17/21 09/17/21 09/17/21 05:58 05:58 05:58 WBC 7.5 RBC 3.09 L Hgb 8.9 L Hct 29.1 L MCV 94.2 D MCH 28.8 MCHC 30.6 L RDW 12.8 Plt Count 186 MPV 10.4 Immature Gran % (Auto) 0.8 H Neut % (Auto) 65.5 Lymph % (Auto) 22.0 [place] % (Auto) 8.6 Eos % (Auto) 2.8 Baso % (Auto) 0.3 Lymph # (Auto) 1.6 [place] # (Auto) 0.6 Eos # (Auto) 0.2 Baso # (Auto) 0.0 Abs Immat Gran (auto) 0.06 H Absolute Neuts (auto) 4.9 Absolute Nucleated RBC 0.000 Nucleated RBC % (auto) 0.0 Smear Tech's Comments ESR PT INR O2 Saturation ABG pH at Pt Temp ABG pH (Temp Correct) ABG pCO2 at Pt Temp ABG pCO2 (Temp Corrct ABG pO2 at Pt Temp ABG pO2 (Temp Correct ABG HCO3 ABG Base Excess (Actual) VBG pH VBG pCO2 VBG pO2 VBG HCO3 VBG O2 Saturation VBG Base Excess Sodium 142 Potassium 3.6 Chloride 106 Carbon Dioxide 29 Anion Gap 11 L BUN 13 Creatinine 0.58 Estim Creat Clear Calc 113.6 Estimated GFR > 60 POC Glucose Random Glucose 91 Fasting Glucose Lactic Acid Calcium 7.9 L D Phosphorus 2.0 L Magnesium 2.1 Total Bilirubin Direct Bilirubin AST ALT Alkaline Phosphatase Troponin I High Sens C-Reactive Protein B-Natriuretic Peptide 1745 H Total Protein Albumin Lipase TSH Free T4 Urine Color Urine Appearance Urine pH Ur Specific [place] Urine Protein Urine Glucose (UA) Urine Ketones Urine Blood Urine Nitrite Ur Leukocyte Esterase Urine RBC Urine WBC Ur Squamous Epith Cells Urine Bacteria Vancomycin Trough COVID-19 ([facility]) COVID-19 Clin Com Blood Type Antibody Screen 09/17/21 09/17/21 09/18/21 08:46 10:59 05:18 WBC RBC Hgb Hct MCV MCH MCHC RDW Plt Count MPV Immature Gran % (Auto) Neut % (Auto) Lymph % (Auto) [place] % (Auto) Eos % (Auto) Baso % (Auto) Lymph # (Auto) [place] # (Auto) Eos # (Auto) Baso # (Auto) Abs Immat Gran (auto) Absolute Neuts (auto) Absolute Nucleated RBC Nucleated RBC % (auto) Smear Tech's Comments ESR PT INR O2 Saturation ABG pH at Pt Temp ABG pH (Temp Correct) ABG pCO2 at Pt Temp ABG pCO2 (Temp Corrct ABG pO2 at Pt Temp ABG pO2 (Temp Correct ABG HCO3 ABG Base Excess (Actual) VBG pH VBG pCO2 VBG pO2 VBG HCO3 VBG O2 Saturation VBG Base Excess Sodium 145 Potassium 3.8 Chloride 110 H Carbon Dioxide 25 Anion Gap 14 BUN 14 Creatinine 0.61 Estim Creat Clear Calc 108.0 Estimated GFR > 60 POC Glucose Random Glucose 88 Fasting Glucose Lactic Acid Calcium 8.1 L Phosphorus 2.6 L Magnesium 2.2 Total Bilirubin Direct Bilirubin AST ALT Alkaline Phosphatase Troponin I High Sens 34.7 H C-Reactive Protein B-Natriuretic Peptide Total Protein Albumin 2.7 L D Lipase TSH Free T4 Urine Color Urine Appearance Urine pH Ur Specific [place] Urine Protein Urine Glucose (UA) Urine Ketones Urine Blood Urine Nitrite Ur Leukocyte Esterase Urine RBC Urine WBC Ur Squamous Epith Cells Urine Bacteria Vancomycin Trough 17.0 COVID-19 ([facility]) COVID-19 Clin Com Blood Type Antibody Screen 09/18/21 09/18/21 09/18/21 05:19 05:19 05:23 WBC 7.5 RBC 3.08 L Hgb 9.0 L Hct 28.9 L MCV 93.8 MCH 29.2 MCHC 31.1 RDW 13.2 Plt Count 204 MPV 10.1 Immature Gran % (Auto) 1.2 H Neut % (Auto) 65.2 Lymph % (Auto) 22.8 [place] % (Auto) 9.2 Eos % (Auto) 1.6 Baso % (Auto) 0.0 Lymph # (Auto) 1.7 [place] # (Auto) 0.7 Eos # (Auto) 0.1 Baso # (Auto) 0.0 Abs Immat Gran (auto) 0.09 H Absolute Neuts (auto) 4.9 Absolute Nucleated RBC 0.000 Nucleated RBC % (auto) 0.0 Smear Tech's Comments ESR PT INR O2 Saturation ABG pH at Pt Temp ABG pH (Temp Correct) ABG pCO2 at Pt Temp ABG pCO2 (Temp Corrct ABG pO2 at Pt Temp ABG pO2 (Temp Correct ABG HCO3 ABG Base Excess (Actual) VBG pH 7.53 H VBG pCO2 38 VBG pO2 40 VBG HCO3 32 H VBG O2 Saturation 64.0 VBG Base Excess 9.3 Sodium Potassium Chloride Carbon Dioxide Anion Gap BUN Creatinine Estim Creat Clear Calc Estimated GFR POC Glucose Random Glucose Fasting Glucose Lactic Acid Calcium Phosphorus Magnesium Total Bilirubin Direct Bilirubin AST ALT Alkaline Phosphatase Troponin I High Sens C-Reactive Protein B-Natriuretic Peptide 1101 H Total Protein Albumin Lipase TSH Free T4 Urine Color Urine Appearance Urine pH Ur Specific [place] Urine Protein Urine Glucose (UA) Urine Ketones Urine Blood Urine Nitrite Ur Leukocyte Esterase Urine RBC Urine WBC Ur Squamous Epith Cells Urine Bacteria Vancomycin Trough COVID-19 ([facility]) COVID-19 Clin Com Blood Type Antibody Screen 09/18/21 09/19/21 09/19/21 19:59 05:13 05:13 WBC 7.2 RBC 3.19 L Hgb 9.1 L Hct 29.1 L MCV 91.2 MCH 28.5 MCHC 31.3 RDW 13.1 Plt Count 213 MPV 10.0 Immature Gran % (Auto) 1.7 H Neut % (Auto) 55.9 Lymph % (Auto) 30.7 [place] % (Auto) 9.4 Eos % (Auto) 2.2 Baso % (Auto) 0.1 Lymph # (Auto) 2.2 [place] # (Auto) 0.7 Eos # (Auto) 0.2 Baso # (Auto) 0.0 Abs Immat Gran (auto) 0.12 H Absolute Neuts (auto) 4.0 Absolute Nucleated RBC 0.000 Nucleated RBC % (auto) 0.0 Smear Tech's Comments ESR PT INR O2 Saturation ABG pH at Pt Temp ABG pH (Temp Correct) ABG pCO2 at Pt Temp ABG pCO2 (Temp Corrct ABG pO2 at Pt Temp ABG pO2 (Temp Correct ABG HCO3 ABG Base Excess (Actual) VBG pH VBG pCO2 VBG pO2 VBG HCO3 VBG O2 Saturation VBG Base Excess Sodium 144 Potassium 4.0 Chloride 110 H Carbon Dioxide 28 Anion Gap 10 L BUN 14 Creatinine 0.60 Estim Creat Clear Calc 109.2 Estimated GFR > 60 POC Glucose Random Glucose 79 Fasting Glucose Lactic Acid Calcium 8.0 L Phosphorus 2.7 Magnesium 2.5 Total Bilirubin Direct Bilirubin AST ALT Alkaline Phosphatase Troponin I High Sens C-Reactive Protein B-Natriuretic Peptide Total Protein Albumin Lipase TSH Free T4 Urine Color Urine Appearance Urine pH Ur Specific [place] Urine Protein Urine Glucose (UA) Urine Ketones Urine Blood Urine Nitrite Ur Leukocyte Esterase Urine RBC Urine WBC Ur Squamous Epith Cells Urine Bacteria Vancomycin Trough 20.8 H COVID-19 ([facility]) COVID-19 Clin Com Blood Type Antibody Screen 09/19/21 09/19/21 09/19/21 05:13 05:13 19:55 WBC RBC Hgb Hct MCV MCH MCHC RDW Plt Count MPV Immature Gran % (Auto) Neut % (Auto) Lymph % (Auto) [place] % (Auto) Eos % (Auto) Baso % (Auto) Lymph # (Auto) [place] # (Auto) Eos # (Auto) Baso # (Auto) Abs Immat Gran (auto) Absolute Neuts (auto) Absolute Nucleated RBC Nucleated RBC % (auto) Smear Tech's Comments ESR PT INR O2 Saturation ABG pH at Pt Temp ABG pH (Temp Correct) ABG pCO2 at Pt Temp ABG pCO2 (Temp Corrct ABG pO2 at Pt Temp ABG pO2 (Temp Correct ABG HCO3 ABG Base Excess (Actual) VBG pH 7.52 H VBG pCO2 37 VBG pO2 48 VBG HCO3 31 H VBG O2 Saturation 76.0 VBG Base Excess 8.0 Sodium Potassium Chloride Carbon Dioxide Anion Gap BUN Creatinine Estim Creat Clear Calc Estimated GFR POC Glucose Random Glucose Fasting Glucose Lactic Acid Calcium Phosphorus Magnesium Total Bilirubin Direct Bilirubin AST ALT Alkaline Phosphatase Troponin I High Sens C-Reactive Protein B-Natriuretic Peptide 895 H Total Protein Albumin Lipase TSH Free T4 Urine Color Urine Appearance Urine pH Ur Specific [place] Urine Protein Urine Glucose (UA) Urine Ketones Urine Blood Urine Nitrite Ur Leukocyte Esterase Urine RBC Urine WBC Ur Squamous Epith Cells Urine Bacteria Vancomycin Trough 13.8 COVID-19 ([facility]) COVID-19 Clin Com Blood Type Antibody Screen 09/20/21 09/20/21 09/20/21 05:20 05:20 05:23 WBC 7.5 RBC 3.12 L Hgb 9.0 L Hct 28.7 L MCV 92.0 MCH 28.8 MCHC 31.4 RDW 13.3 Plt Count 206 MPV 9.8 Immature Gran % (Auto) 1.2 H Neut % (Auto) 60.6 Lymph % (Auto) 27.6 [place] % (Auto) 8.4 Eos % (Auto) 2.1 Baso % (Auto) 0.1 Lymph # (Auto) 2.1 [place] # (Auto) 0.6 Eos # (Auto) 0.2 Baso # (Auto) 0.0 Abs Immat Gran (auto) 0.09 H Absolute Neuts (auto) 4.6 Absolute Nucleated RBC 0.000 Nucleated RBC % (auto) 0.0 Smear Tech's Comments ESR PT INR O2 Saturation ABG pH at Pt Temp ABG pH (Temp Correct) ABG pCO2 at Pt Temp ABG pCO2 (Temp Corrct ABG pO2 at Pt Temp ABG pO2 (Temp Correct ABG HCO3 ABG Base Excess (Actual) VBG pH 7.58 H VBG pCO2 33 VBG pO2 44 VBG HCO3 31 H VBG O2 Saturation 73.0 VBG Base Excess 9.7 Sodium 147 H Potassium 2.7 L D Chloride 107 Carbon Dioxide 30 H Anion Gap 13 BUN 9 Creatinine 0.67 Estim Creat Clear Calc 95.3 Estimated GFR > 60 POC Glucose Random Glucose 84 Fasting Glucose Lactic Acid Calcium 8.6 D Phosphorus 3.1 Magnesium 2.3 Total Bilirubin 0.7 Direct Bilirubin AST 51 H ALT 37 H Alkaline Phosphatase 50 D Troponin I High Sens C-Reactive Protein B-Natriuretic Peptide Total Protein 5.7 L Albumin 3.9 D Lipase TSH Free T4 Urine Color Urine Appearance Urine pH Ur Specific [place] Urine Protein Urine Glucose (UA) Urine Ketones Urine Blood Urine Nitrite Ur Leukocyte Esterase Urine RBC Urine WBC Ur Squamous Epith Cells Urine Bacteria Vancomycin Trough COVID-19 ([facility]) COVID-19 Clin Com Blood Type Antibody Screen 09/20/21 09/21/21 09/21/21 18:15 05:37 05:37 WBC 11.9 H RBC 3.89 L D Hgb 11.1 L D Hct 35.7 L D MCV 91.8 MCH 28.5 MCHC 31.1 RDW 13.3 Plt Count 284 D MPV 9.4 Immature Gran % (Auto) 1.5 H Neut % (Auto) 76.2 H Lymph % (Auto) 11.7 L [place] % (Auto) 6.7 Eos % (Auto) 3.6 Baso % (Auto) 0.3 Lymph # (Auto) 1.4 [place] # (Auto) 0.8 Eos # (Auto) 0.4 Baso # (Auto) 0.0 Abs Immat Gran (auto) 0.18 H Absolute Neuts (auto) 9.0 H Absolute Nucleated RBC 0.000 Nucleated RBC % (auto) 0.0 Smear Tech's Comments ESR PT INR O2 Saturation ABG pH at Pt Temp ABG pH (Temp Correct) ABG pCO2 at Pt Temp ABG pCO2 (Temp Corrct ABG pO2 at Pt Temp ABG pO2 (Temp Correct ABG HCO3 ABG Base Excess (Actual) VBG pH VBG pCO2 VBG pO2 VBG HCO3 VBG O2 Saturation VBG Base Excess Sodium 147 H 146 H Potassium 3.9 D 3.5 Chloride 106 105 Carbon Dioxide 27 28 Anion Gap 18 17 BUN 8 L 7 L Creatinine 0.74 0.77 Estim Creat Clear Calc 86.3 80.6 Estimated GFR > 60 > 60 POC Glucose Random Glucose 91 117 H Fasting Glucose Lactic Acid Calcium 8.8 9.0 Phosphorus 3.8 Magnesium 2.3 Total Bilirubin Direct Bilirubin AST ALT Alkaline Phosphatase Troponin I High Sens C-Reactive Protein B-Natriuretic Peptide Total Protein Albumin 4.0 Lipase TSH Free T4 Urine Color Urine Appearance Urine pH Ur Specific [place] Urine Protein Urine Glucose (UA) Urine Ketones Urine Blood Urine Nitrite Ur Leukocyte Esterase Urine RBC Urine WBC Ur Squamous Epith Cells Urine Bacteria Vancomycin Trough COVID-19 ([facility]) COVID-19 Clin Com Blood Type Antibody Screen 09/21/21 09/22/21 09/22/21 05:42 05:35 05:35 WBC 17.2 H RBC 4.17 L Hgb 11.6 L Hct 38.0 MCV 91.1 MCH 27.8 MCHC 30.5 L RDW 13.4 Plt Count 276 MPV 9.3 L Immature Gran % (Auto) 0.9 H Neut % (Auto) 78.6 H Lymph % (Auto) 10.5 L [place] % (Auto) 5.9 Eos % (Auto) 3.7 Baso % (Auto) 0.4 Lymph # (Auto) 1.8 [place] # (Auto) 1.0 Eos # (Auto) 0.6 H Baso # (Auto) 0.1 Abs Immat Gran (auto) 0.16 H Absolute Neuts (auto) 13.5 H Absolute Nucleated RBC 0.000 Nucleated RBC % (auto) 0.0 Smear Tech's Comments ESR PT INR O2 Saturation ABG pH at Pt Temp ABG pH (Temp Correct) ABG pCO2 at Pt Temp ABG pCO2 (Temp Corrct ABG pO2 at Pt Temp ABG pO2 (Temp Correct ABG HCO3 ABG Base Excess (Actual) VBG pH 7.57 H VBG pCO2 32 VBG pO2 39 VBG HCO3 30 H VBG O2 Saturation 65.0 VBG Base Excess 8.1 Sodium 142 Potassium 3.4 Chloride 104 Carbon Dioxide 27 Anion Gap 14 BUN 12 D Creatinine 0.79 Estim Creat Clear Calc 77.7 Estimated GFR > 60 POC Glucose Random Glucose 146 H Fasting Glucose Lactic Acid Calcium 9.1 Phosphorus 3.9 Magnesium 2.2 Total Bilirubin Direct Bilirubin AST ALT Alkaline Phosphatase Troponin I High Sens C-Reactive Protein B-Natriuretic Peptide Total Protein Albumin 3.9 Lipase TSH Free T4 Urine Color Urine Appearance Urine pH Ur Specific [place] Urine Protein Urine Glucose (UA) Urine Ketones Urine Blood Urine Nitrite Ur Leukocyte Esterase Urine RBC Urine WBC Ur Squamous Epith Cells Urine Bacteria Vancomycin Trough COVID-19 ([facility]) COVID-19 Clin Com Blood Type Antibody Screen 09/22/21 09/23/21 09/23/21 05:44 05:15 05:15 WBC 12.9 H RBC 3.90 L Hgb 11.1 L Hct 35.8 L MCV 91.8 MCH 28.5 MCHC 31.0 RDW 13.3 Plt Count 290 MPV 9.9 Immature Gran % (Auto) 2.3 H Neut % (Auto) 63.9 Lymph % (Auto) 20.3 [place] % (Auto) 7.9 Eos % (Auto) 5.0 H Baso % (Auto) 0.6 Lymph # (Auto) 2.6 [place] # (Auto) 1.0 Eos # (Auto) 0.7 H Baso # (Auto) 0.1 Abs Immat Gran (auto) 0.30 H Absolute Neuts (auto) 8.3 Absolute Nucleated RBC 0.000 Nucleated RBC % (auto) 0.0 Smear Tech's Comments ESR PT INR O2 Saturation ABG pH at Pt Temp ABG pH (Temp Correct) ABG pCO2 at Pt Temp ABG pCO2 (Temp Corrct ABG pO2 at Pt Temp ABG pO2 (Temp Correct ABG HCO3 ABG Base Excess (Actual) VBG pH 7.50 H VBG pCO2 36 VBG pO2 41 VBG HCO3 28 H VBG O2 Saturation 63.0 VBG Base Excess 5.6 Sodium 140 Potassium 4.1 D Chloride 103 Carbon Dioxide 28 Anion Gap 13 BUN 17 H Creatinine 0.71 Estim Creat Clear Calc 87.7 Estimated GFR > 60 POC Glucose Random Glucose 144 H Fasting Glucose Lactic Acid Calcium 9.5 Phosphorus 3.7 Magnesium 2.3 Total Bilirubin Direct Bilirubin AST ALT Alkaline Phosphatase Troponin I High Sens C-Reactive Protein B-Natriuretic Peptide Total Protein Albumin 3.6 Lipase TSH Free T4 Urine Color Urine Appearance Urine pH Ur Specific [place] Urine Protein Urine Glucose (UA) Urine Ketones Urine Blood Urine Nitrite Ur Leukocyte Esterase Urine RBC Urine WBC Ur Squamous Epith Cells Urine Bacteria Vancomycin Trough COVID-19 ([facility]) COVID-19 Clin Com Blood Type Antibody Screen 09/23/21 09/24/21 09/24/21 05:36 05:35 05:35 WBC 13.5 H RBC 4.01 L Hgb 11.3 L Hct 36.8 L MCV 91.8 MCH 28.2 MCHC 30.7 L RDW 13.4 Plt Count 285 MPV 9.4 Immature Gran % (Auto) 1.8 H Neut % (Auto) 69.9 Lymph % (Auto) 17.5 L [place] % (Auto) 6.7 Eos % (Auto) 3.5 Baso % (Auto) 0.6 Lymph # (Auto) 2.4 [place] # (Auto) 0.9 Eos # (Auto) 0.5 H Baso # (Auto) 0.1 Abs Immat Gran (auto) 0.25 H Absolute Neuts (auto) 9.5 H Absolute Nucleated RBC 0.000 Nucleated RBC % (auto) 0.0 Smear Tech's Comments ESR PT INR O2 Saturation ABG pH at Pt Temp ABG pH (Temp Correct) ABG pCO2 at Pt Temp ABG pCO2 (Temp Corrct ABG pO2 at Pt Temp ABG pO2 (Temp Correct ABG HCO3 ABG Base Excess (Actual) VBG pH 7.47 H VBG pCO2 41 VBG pO2 45 VBG HCO3 30 H VBG O2 Saturation 68.0 VBG Base Excess 6.5 Sodium 141 Potassium 4.1 Chloride 105 Carbon Dioxide 28 Anion Gap 12 BUN 19 H Creatinine 0.72 Estim Creat Clear Calc 86.6 Estimated GFR > 60 POC Glucose Random Glucose 150 H Fasting Glucose Lactic Acid Calcium 9.5 Phosphorus 4.1 Magnesium 2.3 Total Bilirubin Direct Bilirubin AST ALT Alkaline Phosphatase Troponin I High Sens C-Reactive Protein B-Natriuretic Peptide Total Protein Albumin 3.6 Lipase TSH Free T4 Urine Color Urine Appearance Urine pH Ur Specific Divide Urine Protein Urine Glucose (UA) Urine Ketones Urine Blood Urine Nitrite Ur Leukocyte Esterase Urine RBC Urine WBC Ur Squamous Epith Cells Urine Bacteria Vancomycin Trough COVID-19 ([facility]) COVID-19 Clin Com Blood Type Antibody Screen 09/24/21 09/24/21 09/25/21 05:36 18:15 05:29 WBC RBC Hgb Hct MCV MCH MCHC RDW Plt Count MPV Immature Gran % (Auto) Neut % (Auto) Lymph % (Auto) [place] % (Auto) Eos % (Auto) Baso % (Auto) Lymph # (Auto) [place] # (Auto) Eos # (Auto) Baso # (Auto) Abs Immat Gran (auto) Absolute Neuts (auto) Absolute Nucleated RBC Nucleated RBC % (auto) Smear Tech's Comments ESR PT INR O2 Saturation ABG pH at Pt Temp ABG pH (Temp Correct) ABG pCO2 at Pt Temp ABG pCO2 (Temp Corrct ABG pO2 at Pt Temp ABG pO2 (Temp Correct ABG HCO3 ABG Base Excess (Actual) VBG pH 7.48 H 7.45 H VBG pCO2 38 40 VBG pO2 45 46 VBG HCO3 29 H 28 H VBG O2 Saturation 69.0 72.0 VBG Base Excess 5.4 4.8 Sodium 144 Potassium 4.0 Chloride 106 Carbon Dioxide 30 H Anion Gap 12 BUN 19 H Creatinine 0.78 Estim Creat Clear Calc 79.9 Estimated GFR > 60 POC Glucose Random Glucose 137 H Fasting Glucose Lactic Acid Calcium 9.6 Phosphorus Magnesium Total Bilirubin Direct Bilirubin AST ALT Alkaline Phosphatase Troponin I High Sens C-Reactive Protein B-Natriuretic Peptide Total Protein Albumin Lipase TSH Free T4 Urine Color Urine Appearance Urine pH Ur Specific Divide Urine Protein Urine Glucose (UA) Urine Ketones Urine Blood Urine Nitrite Ur Leukocyte Esterase Urine RBC Urine WBC Ur Squamous Epith Cells Urine Bacteria Vancomycin Trough COVID-19 ([facility]) COVID-19 Clin Com Blood Type Antibody Screen 09/25/21 09/25/21 09/26/21 05:30 05:30 05:13 WBC 14.4 H 11.3 H RBC 3.98 L 3.60 L Hgb 11.3 L 10.4 L Hct 36.3 L 33.5 L MCV 91.2 93.1 MCH 28.4 28.9 MCHC 31.1 31.0 RDW 13.5 13.6 Plt Count 300 269 MPV 9.6 9.7 Immature Gran % (Auto) 1.2 H 1.0 H Neut % (Auto) 70.3 68.2 Lymph % (Auto) 16.2 L 17.3 L [place] % (Auto) 7.9 8.7 Eos % (Auto) 3.8 4.1 H Baso % (Auto) 0.6 0.7 Lymph # (Auto) 2.3 2.0 [place] # (Auto) 1.1 1.0 Eos # (Auto) 0.5 H 0.5 H Baso # (Auto) 0.1 0.1 Abs Immat Gran (auto) 0.17 H 0.11 H Absolute Neuts (auto) 10.1 H 7.7 Absolute Nucleated RBC 0.000 0.000 Nucleated RBC % (auto) 0.0 0.0 Smear Tech's Comments ESR PT INR O2 Saturation ABG pH at Pt Temp ABG pH (Temp Correct) ABG pCO2 at Pt Temp ABG pCO2 (Temp Corrct ABG pO2 at Pt Temp ABG pO2 (Temp Correct ABG HCO3 ABG Base Excess (Actual) VBG pH VBG pCO2 VBG pO2 VBG HCO3 VBG O2 Saturation VBG Base Excess Sodium 141 Potassium 3.8 Chloride 104 Carbon Dioxide 29 Anion Gap 12 BUN 19 H Creatinine 0.74 Estim Creat Clear Calc 84.2 Estimated GFR > 60 POC Glucose Random Glucose 136 H Fasting Glucose Lactic Acid Calcium 9.5 Phosphorus 4.3 Magnesium 2.3 Total Bilirubin Direct Bilirubin AST ALT Alkaline Phosphatase Troponin I High Sens C-Reactive Protein B-Natriuretic Peptide Total Protein Albumin 3.6 Lipase TSH Free T4 Urine Color Urine Appearance Urine pH Ur Specific Divide Urine Protein Urine Glucose (UA) Urine Ketones Urine Blood Urine Nitrite Ur Leukocyte Esterase Urine RBC Urine WBC Ur Squamous Epith Cells Urine Bacteria Vancomycin Trough COVID-19 ([facility]) COVID-19 Clin Com Blood Type Antibody Screen 09/26/21 09/26/21 09/27/21 05:13 05:28 05:18 WBC 9.0 RBC 3.52 L Hgb 9.9 L Hct 32.5 L MCV 92.3 MCH 28.1 MCHC 30.5 L RDW 13.6 Plt Count 281 MPV 10.0 Immature Gran % (Auto) 0.8 H Neut % (Auto) 62.6 Lymph % (Auto) 21.8 [place] % (Auto) 8.9 Eos % (Auto) 5.0 H Baso % (Auto) 0.9 Lymph # (Auto) 2.0 [place] # (Auto) 0.8 Eos # (Auto) 0.5 H Baso # (Auto) 0.1 Abs Immat Gran (auto) 0.07 H Absolute Neuts (auto) 5.6 Absolute Nucleated RBC 0.000 Nucleated RBC % (auto) 0.0 Smear Tech's Comments ESR PT INR O2 Saturation ABG pH at Pt Temp ABG pH (Temp Correct) ABG pCO2 at Pt Temp ABG pCO2 (Temp Corrct ABG pO2 at Pt Temp ABG pO2 (Temp Correct ABG HCO3 ABG Base Excess (Actual) VBG pH 7.48 H VBG pCO2 43 VBG pO2 43 VBG HCO3 32 H VBG O2 Saturation 69.0 VBG Base Excess 8.3 Sodium 141 Potassium 3.6 Chloride 104 Carbon Dioxide 27 Anion Gap 14 BUN 20 H Creatinine 0.75 Estim Creat Clear Calc 83.1 Estimated GFR > 60 POC Glucose Random Glucose 128 H Fasting Glucose Lactic Acid Calcium 9.4 Phosphorus 4.2 Magnesium 2.3 Total Bilirubin Direct Bilirubin AST ALT Alkaline Phosphatase Troponin I High Sens C-Reactive Protein B-Natriuretic Peptide Total Protein Albumin 3.4 L Lipase TSH Free T4 Urine Color Urine Appearance Urine pH Ur Specific Divide Urine Protein Urine Glucose (UA) Urine Ketones Urine Blood Urine Nitrite Ur Leukocyte Esterase Urine RBC Urine WBC Ur Squamous Epith Cells Urine Bacteria Vancomycin Trough COVID-19 ([facility]) COVID-19 Clin Com Blood Type Antibody Screen 09/27/21 09/27/21 09/28/21 05:18 05:22 05:19 WBC RBC Hgb Hct MCV MCH MCHC RDW Plt Count MPV Immature Gran % (Auto) Neut % (Auto) Lymph % (Auto) [place] % (Auto) Eos % (Auto) Baso % (Auto) Lymph # (Auto) [place] # (Auto) Eos # (Auto) Baso # (Auto) Abs Immat Gran (auto) Absolute Neuts (auto) Absolute Nucleated RBC Nucleated RBC % (auto) Smear Tech's Comments ESR PT INR O2 Saturation ABG pH at Pt Temp ABG pH (Temp Correct) ABG pCO2 at Pt Temp ABG pCO2 (Temp Corrct ABG pO2 at Pt Temp ABG pO2 (Temp Correct ABG HCO3 ABG Base Excess (Actual) VBG pH 7.48 H 7.54 H VBG pCO2 43 39 VBG pO2 43 40 VBG HCO3 32 H 34 H VBG O2 Saturation 65.0 65.0 VBG Base Excess 8.6 11.3 Sodium 142 Potassium 3.5 Chloride 103 Carbon Dioxide 30 H Anion Gap 13 BUN 21 H Creatinine 0.74 Estim Creat Clear Calc 84.8 Estimated GFR > 60 POC Glucose Random Glucose 120 H Fasting Glucose Lactic Acid Calcium 9.5 Phosphorus Magnesium Total Bilirubin 0.4 Direct Bilirubin AST 31 ALT 38 H Alkaline Phosphatase 67 D Troponin I High Sens C-Reactive Protein B-Natriuretic Peptide Total Protein 5.9 L Albumin 3.5 Lipase TSH Free T4 Urine Color Urine Appearance Urine pH Ur Specific Divide Urine Protein Urine Glucose (UA) Urine Ketones Urine Blood Urine Nitrite Ur Leukocyte Esterase Urine RBC Urine WBC Ur Squamous Epith Cells Urine Bacteria Vancomycin Trough COVID-19 ([facility]) COVID-19 Clin Com Blood Type Antibody Screen 09/28/21 09/28/21 09/28/21 05:20 05:20 10:22 WBC 7.8 RBC 3.56 L Hgb 10.0 L Hct 33.0 L MCV 92.7 MCH 28.1 MCHC 30.3 L RDW 13.7 Plt Count 282 MPV 9.9 Immature Gran % (Auto) 0.8 H Neut % (Auto) 62.1 Lymph % (Auto) 23.8 [place] % (Auto) 8.6 Eos % (Auto) 3.6 Baso % (Auto) 1.1 Lymph # (Auto) 1.9 [place] # (Auto) 0.7 Eos # (Auto) 0.3 Baso # (Auto) 0.1 Abs Immat Gran (auto) 0.06 H Absolute Neuts (auto) 4.9 Absolute Nucleated RBC 0.000 Nucleated RBC % (auto) 0.0 Smear Tech's Comments ESR PT INR O2 Saturation ABG pH at Pt Temp ABG pH (Temp Correct) ABG pCO2 at Pt Temp ABG pCO2 (Temp Corrct ABG pO2 at Pt Temp ABG pO2 (Temp Correct ABG HCO3 ABG Base Excess (Actual) VBG pH VBG pCO2 VBG pO2 VBG HCO3 VBG O2 Saturation VBG Base Excess Sodium 146 H Potassium 3.2 L Chloride 105 Carbon Dioxide 30 H Anion Gap 14 BUN 19 H Creatinine 0.71 Estim Creat Clear Calc 88.1 Estimated GFR > 60 POC Glucose Random Glucose 91 Fasting Glucose Lactic Acid Calcium 9.4 Phosphorus Magnesium Total Bilirubin 0.5 Direct Bilirubin AST 47 H D ALT 52 H Alkaline Phosphatase 73 Troponin I High Sens C-Reactive Protein B-Natriuretic Peptide Total Protein 5.9 L Albumin 3.5 Lipase TSH Free T4 Urine Color Urine Appearance Urine pH Ur Specific Divide Urine Protein Urine Glucose (UA) Urine Ketones Urine Blood Urine Nitrite Ur Leukocyte Esterase Urine RBC Urine WBC Ur Squamous Epith Cells Urine Bacteria Vancomycin Trough COVID-19 ([facility]) COVID-19 Clin Com Blood Type O Negative Antibody Screen NEGATIVE Airway Heart: ST Lungs: bl mechanical breath sounds Other: Patient has ETT in situ . Patient is on propofol gtt . Unable to perform airway exam . Assessment and Plan Assessment Anesthesia Assessment: Anesthesia Plan Discussed (Discussed with Health care proxy ) Final Anesthetic Review Family History of Problems with Anesthesia: No History of Problems with Anesthesia: Unobtainable NPO: Yes ASA Class: IV Final Preanesthetic Review: Anes Risks/Benef Reviewed Patient Risk: High Procedure Risk: Intermediate Anesthetic Plan Anesthetic Plan: GA Disposition: Inp. Admit - ICU
--- NOTE | 2021-09-28 13:39 | MHC.SHP ---
Pre-Procedural Eval Section A Date of Service: 09/28/21 The patient is an INPATIENT: Yes Section B Chief Complaint: Resp Failure Allergies: Allergies Allergy/AdvReac Type Severity Reaction Status Date / Time morphine [Morphine] Allergy Unknown UNKNOWN Verified 05/25/21 12:58 Plan I have reviewed the history and physical and performed a pertinent physical examination on my patient. No changes have occurred unless specified.
--- NOTE | 2021-09-28 15:26 | P.OP_ITS ---
Operative Note Operative Note Date of Service: 09/28/21 Narrative: Preoperative diagnosis: Respiratory failure Postoperative diagnosis: Respiratory failure Operation: Tracheostomy and PEG tube placement and bronchoscopy Surgeon: Laura Olmos MD Medical Technologist:Gonzalo Solorzano EBL: 5 cc Specimens: none Operation in detail: The patient was positioned on the bed with the head and neck extended. The neck was prepped and draped in standard sterile fashion. A time-out was performed confirming the correct patient, site, and procedure. We began the operation by performing a bronchoscopy which was done down to the subsegmental level bilaterally. There were moderate secretions in the distal airways which were suctioned out for a toilet bronchoscopy in preparation for the tracheostomy.. Once this was complete, and any specimens were obtained, the endotracheal tube was brought back to the level of the vocal cords with the bronchoscope still in it. This was all done by the physiotherapist's assistant. The cuff was then deflated again with the bronchoscope in it and a needle was placed through the 2nd cartilaginous ring visualized on bronchoscopy and a wire was placed through the needle and left inside the trachea. A series of dilators was then used to dilate the space under vision. And over a wire and the 2 internal dilators the tracheostomy was inserted again under vision and the cuff was inflated. The bronchoscope was then placed through the tracheostomy visualizing the sheryl about 4 cm from the sheryl. Tracheostomy was then secured with nylon sutures and trach ties. We then placed the gastroscope into the oropharynx and into the esophagus traversing down into the stomach. Findings are stomach mucosa and 1st portion of the duodenum as well as the esophagus had no mucosal lesions. In the stomach there were some mild erosions on the lesser curve.. The stomach was then insufflated and with the bedside physiotherapist's assistant at the abdomen transilluminated. The point of transillumination was then marked on the abdominal skin By the bedside physiotherapist's assistant. This area was then prepped and draped in a standard sterile fashion and a needle was inserted at that point into the stomach visualized by the gastroscope. The wire was then grasped with a loop and pulled up into the oropharynx with the scope. The wire was then looped into the PEG tube and pulled from the abdominal side back down into the stomach following closely with the gastroscope. The PEG tube was then positioned up against the abdominal wall snug but not too tight. This was then secured in place and a dressing was applied and connected to a Stanford bag for drainage overnight. Patient tolerated the procedure well was brought back to the ICU in stable condition.
--- NOTE | 2021-09-28 15:29 | PM.CCPN ---
Subjective Subjective Date of Service: 09/28/21 Interval History: 71-year-old female with very far advanced chronic lung disease from smoking and presents with acute on chronic hypercarbic and hypoxic respiratory failure and intubated and extubated at least on 3 occasions during this hospital stay alone and clearly fails the extubation over variable period of time at least on 1 occasion with witnessed aspiration and I do believe that congestive heart failure does play a role in weaning failure now and I know I defer from the other back tender pulp drier in thinking that her aortic stenosis is at a critical level with a failing ventricle behind it and and today we went for a successful tracheostomy and PEG feeding tube placement and on fully tomorrow will begin to wean sedation and engaged the family in conversation as well as Psychiatry to try the no through some vena behavioral manipulation to prevent her from pulling things out and to see if she would continue to go along with this process and we are making application to long-term acute care units at the same time and this would allow at least some stabilization of the respiratory component and and then if it is agreed upon and she is stable might even have cardiac catheterization to determine the degree of aortic stenosis and see if she might be a candidate for a trans catheter valve replacement Critical Care Time (minutes): 45 Physical Exam Vital Signs: Vital Signs: Last Vital Signs Temp 97.6 F 09/28/21 12:00 Pulse 100 09/28/21 13:00 Resp 14 09/28/21 13:00 BP 98/59 L 09/28/21 13:00 Pulse Ox 94 09/28/21 13:00 Oxygen Flow Rate 4 09/09/21 22:09 BMI result Body Mass Index 33.5 She is at a [place] 3 level on propofol and she does respond to voice and nonfocal neurologically Cardiac with a classic parvus and tardus upstroke of her carotids but no underlying gallop rhythm Benign abdomen which was tolerating feedings with no organomegaly No accessory muscle use no adventitious sounds Objective Data Labs CBC & Chem 7: 09/28/21 05:20 09/28/21 05:20 Labs: Laboratory Results - last 24 hr 09/28/21 09/28/21 09/28/21 05:19 05:20 05:20 WBC 7.8 RBC 3.56 L Hgb 10.0 L Hct 33.0 L MCV 92.7 MCH 28.1 MCHC 30.3 L RDW 13.7 Plt Count 282 MPV 9.9 Immature Gran % (Auto) 0.8 H Neut % (Auto) 62.1 Lymph % (Auto) 23.8 [place] % (Auto) 8.6 Eos % (Auto) 3.6 Baso % (Auto) 1.1 Lymph # (Auto) 1.9 [place] # (Auto) 0.7 Eos # (Auto) 0.3 Baso # (Auto) 0.1 Abs Immat Gran (auto) 0.06 H Absolute Neuts (auto) 4.9 Absolute Nucleated RBC 0.000 Nucleated RBC % (auto) 0.0 VBG pH 7.54 H VBG pCO2 39 VBG pO2 40 VBG HCO3 34 H VBG O2 Saturation 65.0 VBG Base Excess 11.3 Sodium 146 H Potassium 3.2 L Chloride 105 Carbon Dioxide 30 H Anion Gap 14 BUN 19 H Creatinine 0.71 Estim Creat Clear Calc 88.1 Estimated GFR > 60 Random Glucose 91 Calcium 9.4 Total Bilirubin 0.5 AST 47 H D ALT 52 H Alkaline Phosphatase 73 Total Protein 5.9 L Albumin 3.5 Blood Type Antibody Screen 09/28/21 10:22 WBC RBC Hgb Hct MCV MCH MCHC RDW Plt Count MPV Immature Gran % (Auto) Neut % (Auto) Lymph % (Auto) [place] % (Auto) Eos % (Auto) Baso % (Auto) Lymph # (Auto) [place] # (Auto) Eos # (Auto) Baso # (Auto) Abs Immat Gran (auto) Absolute Neuts (auto) Absolute Nucleated RBC Nucleated RBC % (auto) VBG pH VBG pCO2 VBG pO2 VBG HCO3 VBG O2 Saturation VBG Base Excess Sodium Potassium Chloride Carbon Dioxide Anion Gap BUN Creatinine Estim Creat Clear Calc Estimated GFR Random Glucose Calcium Total Bilirubin AST ALT Alkaline Phosphatase Total Protein Albumin Blood Type O Negative Antibody Screen NEGATIVE Microbiology Microbiology Results: Microbiology 09/17/21 07:32 Sputum - Suctioned Gram Stain - Final 09/17/21 07:32 Sputum - Suctioned Sputum Culture - Final Beverly tropicalis 09/14/21 08:55 Blood - Venous Blood Culture - Final No growth after 5 days. 09/14/21 10:10 Catheter Tip - Cvp Catheter Tip Culture - Final 09/12/21 05:20 Blood - Venous Blood Culture - Final No growth after 5 days. 09/12/21 05:32 Blood - Venous Blood Culture - Final No growth after 5 days. 09/14/21 08:46 Blood - Venous Blood Culture - Final Coag negative Staphylococcus 09/09/21 22:41 Blood - Venous Blood Culture - Final No growth after 5 days. 09/09/21 22:41 Blood - Venous Blood Culture - Final Coag negative Staphylococcus 09/10/21 05:00 Sputum - Suctioned Gram Stain - Final 09/10/21 05:00 Sputum - Suctioned Sputum Culture - Final No growth. 09/10/21 00:00 Urine Catheterized - Stanford Catheter Urine Culture - Final Enterococcus faecalis Progress Note: A&P Assessment and plan (1) Pulmonary aspiration: Status: Acute (2) Failure to wean from mechanical ventilation: Status: Acute (3) Aortic stenosis: Status: Acute (4) Acute respiratory failure: Status: Acute (5) Agitation: Status: Acute (6) Hypernatremia: Status: Acute (7) Atrial tachycardia: Status: Acute (8) CHF exacerbation: Status: Acute (9) COPD exacerbation: Status: Acute (10) Altered mental state: Status: Acute (11) Cerebral infarction: Status: Acute (12) Acute CVA (cerebrovascular accident): Status: Acute (13) Fall: Status: Acute (14) Thoracic aortic aneurysm (TAA): Status: Acute (15) Acute on chronic diastolic (congestive) heart failure: Status: Acute (16) Recurrent incisional hernia: Status: Acute (17) Acute on chronic respiratory failure with hypoxia and hypercapnia: Status: Acute (18) Acute metabolic encephalopathy: Status: Acute (19) CAP (community acquired pneumonia): Status: Acute (20) Respiratory failure with hypoxia and hypercapnia: Status: Acute (21) DHEERAJ (obstructive sleep apnea): Status: Acute (22) On home oxygen therapy: Status: Acute (23) Bifascicular block: Status: Acute Assessment and Plan: Status post tracheostomy and and PEG tube in stable and at this point will 1st lift sedation and if that works out well with cognitive function make an effort at ventilator weaning Quality Stroke Does the patient have a stroke diagnosis?: No VTE Prior VTE?: No VTE Risk Level:: Medical - moderate - high VTE Device Contraindication: N/A - Device Ordered VTE Drug Contraindication: N/A - Med Ordered
[2021-09-28] MEDS: propofoL 1,000 MG/100 ML VIAL 18.16 MG IVCONT (18:07)
[2021-09-28] MEDS: propofoL 1,000 MG/100 ML VIAL 12.11 MG IVCONT (22:57)
[2021-09-29] VITALS (36 sets, daily range): BP systolic 78–150; BP diastolic 28–79; PULSE 58–116; RESP 16–22; TEMP 34.8–37.5; O2SAT 90–100; BMI 33.0
[2021-09-29] MEDS: Enoxaparin Sodium 40 MG/0.4 ML SYRINGE SUBCUT (03:10)
--- NOTE | 2021-09-29 03:39 | PC.NURSE ---
CARE ASSUMED 23:15...REMAINS VCV/AC MODE VENT SUPPORT VIA NEW #8.0 PORTEX TRACH..PROPOFOL AND LEVOPHED DRIPS PER DEC...VENT SYNCHRONY AT REST..BRIEFLY OPENS EYES BUT DOES NOT FOLLOW COMMANDS...SINUS RHYTHM RBBB AND FREQUENT ATRIAL ECTOPY...TRACHEOTOMY DRESSING DRY/INTACT..NO SIGNS OF BLEEDING..NEW PEG TO GRAVITY DRAINAGE...COLLECTING BILIOUS DRAINAGE..DRESSING TO ABDOMINAL WOUND DRY/INTACT..JUAREZ JONO-YELLOW URINE
[2021-09-29 05:29] LABS: VBG Base Excess 11.6 mmol/L; VBG HCO3 34 mmol/L (22-26); VBG pCO2 37 mmHg; VBG pH 7.57 (7.32-7.43); VBG pO2 41 mmHg
[2021-09-29 05:35] LABS: MANUAL DIFF FLAG NO
[2021-09-29 05:37] LABS: Basophils Absolute Auto 0.1 X10*3/uL (0.0-0.2); Basophils Percent Auto 0.9 % (0-2); Eosinophils Absolute Auto 0.3 X10*3/uL (0.0-0.4); Eosinophils Percent Auto 3.8 % (0-4); Hematocrit 32.5 % (37.0-47.0); Hemoglobin 10.2 g/dl (12.0-16.0); Imm Gran Abs Auto 0.06 X10*3/uL (0.00-0.03); Imm Gran Pct Auto 0.7 % (0.0-0.4); Lymphocytes Percent Auto 23.1 % (20-40); Mean Corpuscular HGB Conc 31.4 g/dl (31.0-35.0); Mean Corpuscular Hemoglobin 28.4 pg (27.0-33.0); Mean Corpuscular Volume 90.5 fL (80.0-98.0); Mean Platelet Volume 9.9 fL (9.4-12.3); Monocytes Absolute Auto 0.7 X10*3/uL (0.1-1.2); Monocytes Percent Auto 8.3 % (2-11); Neutrophils Absolute Auto 5.4 x10*3/uL (2.0-8.3); Neutrophils Percent Auto 63.2 % (45-73); Platelet Count 331 X10*3/uL (160-400); Red Blood Count 3.59 X10*6/uL (4.20-5.50); Red Cell Distribution Width 13.7 % (11.0-16.0); White Blood Count 8.5 X10*3/uL (4.8-10.8)
[2021-09-29] MEDS: propofoL 1,000 MG/100 ML VIAL 12.11 MG IVCONT (05:43)
[2021-09-29 05:55] LABS: Alanine Aminotransferase 51 U/L (0-31); Albumin Level 3.5 g/dL (3.5-5.0); Alkaline Phosphatase 81 U/L (39-117); Anion Gap 14 (12-20); Aspartate Amino Transferase 49 U/L (5-31); Bilirubin Total 0.7 mg/dL (0.0-1.0); Blood Urea Nitrogen 18 mg/dL (9-16); Calcium 9.5 mg/dL (8.4-10.2); Carbon Dioxide 29 mmol/L (22-29); Chloride 105 mmol/L (96-108); Creatinine Clr Calc Pharmacy 78.6; Estimated Glomerular Filt Rate > 60; Glucose Random 113 mg/dL (60-115); Potassium 3.1 mmol/L (3.3-5.1); Sodium 145 mmol/L (135-145)
[2021-09-29 06:14] LABS: Venous Blood Gas Refer to POC result
[2021-09-29] MEDS: Potassium Phosphate 30 MMOL in 0.9 % Sodium Chloride 500 ML 85 MMOL IV (08:28)
[2021-09-29] MEDS: Furosemide 20 MG/2 ML VIAL 40 MG IVPUSH ×2 (08:33→17:03)
[2021-09-29] MEDS: Famotidine/PF 20 MG/2 ML VIAL IVPUSH (08:33)
[2021-09-29] MEDS: Chlorhexidine Gluc Oral Rinse 15 ML MOUTHWASH BUCCAL ×3 (08:33→20:52)
--- NOTE | 2021-09-29 11:10 | HO.POSTANES ---
Post Anesthesia Evaluation Post Anesthesia Evaluation Vital Signs: Vital Signs Temp Pulse Resp BP Pulse Ox 09/29/21 11:00 105 H 16 104/64 96 09/29/21 10:16 87/60 L 09/29/21 10:07 103/49 L 09/29/21 10:00 107 H 16 93/61 90 L 09/29/21 09:00 79 16 119/59 L 94 09/29/21 08:16 127/79 09/29/21 08:00 97.8 F 68 16 127/79 93 09/29/21 07:00 79 16 92/58 L 94 09/29/21 06:00 97.6 F 71 16 106/64 95 09/29/21 04:57 92 16 119/61 96 09/29/21 04:00 97.6 F 98 16 127/54 L 95 09/29/21 03:00 102 H 16 125/66 94 09/29/21 02:18 88/37 L 09/29/21 02:00 76 16 87/32 L 93 09/29/21 01:58 150/75 H 09/29/21 01:00 78 18 78/28 L 92 09/29/21 00:00 70 16 97/62 94 Anesthesia: General Mental Status: Awake Pain Control: Satisfactory Nausea/Vomiting: None Hydration: Adequate Anesthesia-Related Issues: No Anes. Related Issues
--- NOTE | 2021-09-29 13:34 | MHC.CM.PN ---
Pt is POD 1 : peg and trach. Goals of care today are to wean off sedative medications and initiate tube feeding later this evening. Clinical updates remitted to JEFF who is following pt for LTAC placement. JEFF will review clincial updates on Sunday, 10/03 to ensure pt can tolerate the TF and sedative reduction. has updated pt's son on progress.
--- NOTE | 2021-09-29 17:07 | PM.CCPN ---
Subjective Subjective Date of Service: 09/29/21 Interval History: 71-year-old female with acute on chronic hypercarbic and hypoxic respiratory failure initially appearing to be a community-acquired infection it is 1 of several recent admissions for the same she has very advanced COPD from smoking and and by my exam across the aortic valve but at times when we had better left ventricular reserve with good stroke volume and flow velocities in excess of 4-4.5 m/sec consistent with critical aortic valvular stenosis and she has developed a mild degree of diffuse hypokinesis of the left ventricle with summed diminished systolic reserve and at the lower flow states the velocities across the valve dropped to 3-3.5 meters but this is still consistent with critical aortic stenosis valve area consistently below 0.8 sq cm and with her BSA valve area index below 0.4 centimeter square/meter squared and I do believe that this was part of the failure to wean from the ventilator so now she is status post tracheostomy and doing very well part of her issue always been behavioral but she is doing very well and she is coming off the propofol and remains on the ventilator but comfortable Critical Care Time (minutes): 45 Physical Exam Vital Signs: Vital Signs: Last Vital Signs Temp 97.6 F 09/29/21 16:00 Pulse 70 09/29/21 16:00 Resp 17 09/29/21 16:00 BP 113/44 L 09/29/21 16:00 Pulse Ox 94 09/29/21 16:00 Oxygen Flow Rate 4 09/09/21 22:09 BMI result Body Mass Index 33.0 awake easily arousable good cognitive function understands fully low minute ventilatory requirements comfortable tidal volumes of 400 cc still remains on assist control we tried pressure support and she could not sustain that for any length of time and I am sure that this is due to muscle weakness and were going to work o n that abdomen tolerating food has a new PEG tube which we are going to be able to use later this evening chest without accessory muscles and without adventitious sounds Objective Data Labs CBC & Chem 7: 09/30/21 05:15 09/30/21 05:15 Labs: Laboratory Results - last 24 hr 09/29/21 09/29/21 09/29/21 05:20 05:20 05:23 WBC 8.5 RBC 3.59 L Hgb 10.2 L Hct 32.5 L MCV 90.5 MCH 28.4 MCHC 31.4 RDW 13.7 Plt Count 331 MPV 9.9 Immature Gran % (Auto) 0.7 H Neut % (Auto) 63.2 Lymph % (Auto) 23.1 [place] % (Auto) 8.3 Eos % (Auto) 3.8 Baso % (Auto) 0.9 Lymph # (Auto) 2.0 [place] # (Auto) 0.7 Eos # (Auto) 0.3 Baso # (Auto) 0.1 Abs Immat Gran (auto) 0.06 H Absolute Neuts (auto) 5.4 Absolute Nucleated RBC 0.000 Nucleated RBC % (auto) 0.0 VBG pH 7.57 H VBG pCO2 37 VBG pO2 41 VBG HCO3 34 H VBG O2 Saturation 66.0 VBG Base Excess 11.6 Sodium 145 Potassium 3.1 L Chloride 105 Carbon Dioxide 29 Anion Gap 14 BUN 18 H Creatinine 0.79 Estim Creat Clear Calc 78.6 Estimated GFR > 60 Random Glucose 113 Calcium 9.5 Total Bilirubin 0.7 AST 49 H ALT 51 H Alkaline Phosphatase 81 Total Protein 6.0 L Albumin 3.5 Microbiology Microbiology Results: Microbiology 09/17/21 07:32 Sputum - Suctioned Gram Stain - Final 09/17/21 07:32 Sputum - Suctioned Sputum Culture - Final [place] tropicalis 09/14/21 08:55 Blood - Venous Blood Culture - Final No growth after 5 days. 09/14/21 10:10 Catheter Tip - Cvp Catheter Tip Culture - Final 09/12/21 05:20 Blood - Venous Blood Culture - Final No growth after 5 days. 09/12/21 05:32 Blood - Venous Blood Culture - Final No growth after 5 days. 09/14/21 08:46 Blood - Venous Blood Culture - Final Coag negative Staphylococcus 09/09/21 22:41 Blood - Venous Blood Culture - Final No growth after 5 days. 09/09/21 22:41 Blood - Venous Blood Culture - Final Coag negative Staphylococcus 09/10/21 05:00 Sputum - Suctioned Gram Stain - Final 09/10/21 05:00 Sputum - Suctioned Sputum Culture - Final No growth. 09/10/21 00:00 Urine Catheterized - [facility] Catheter Urine Culture - Final Enterococcus faecalis Progress Note: A&P Assessment and plan (1) Acute on chronic respiratory failure with hypoxia and hypercapnia: Status: Acute (2) Acute CHF: Status: Acute (3) Acute metabolic encephalopathy: Status: Acute (4) CAP (community acquired pneumonia): Status: Acute (5) Acute on chronic diastolic (congestive) heart failure: Status: Acute (6) Recurrent incisional hernia: Status: Acute (7) Acute CVA (cerebrovascular accident): Status: Acute (8) Fall: Status: Acute (9) Cerebral infarction: Status: Acute (10) Acute respiratory failure: Status: Acute (11) CHF exacerbation: Status: Acute (12) COPD exacerbation: Status: Acute (13) Altered mental state: Status: Acute (14) Atrial tachycardia: Status: Acute (15) Hypernatremia: Status: Acute (16) Agitation: Status: Acute (17) Aortic stenosis: Status: Acute (18) Failure to wean from mechanical ventilation: Status: Acute (19) Pulmonary aspiration: Status: Acute (20) Enuresis: Status: Acute (21) Thoracic aortic aneurysm (TAA): Status: Acute (22) Urge incontinence: Status: Acute (23) Respiratory failure with hypoxia and hypercapnia: Status: Acute (24) COPD (chronic obstructive pulmonary disease): Status: Acute (25) Chronic diastolic (congestive) heart failure: Status: Acute (26) Atrial arrhythmia: Status: Acute (27) DHEERAJ (obstructive sleep apnea): Status: Acute (28) On home oxygen therapy: Status: Acute (29) Bifascicular block: Status: Acute (30) Atherosclerotic cardiovascular disease: Status: Acute (31) Nonrheumatic aortic (valve) stenosis: Status: Acute Assessment and Plan: plan is to try to initially wean from volume control to pressure supported mechanism watch intake and output volume and measured CVP begin possibly the next day with physical and occupational therapy to begin the mobilization process and now start feeding through the PEG tube in the morning as well Quality Stroke Does the patient have a stroke diagnosis?: No VTE Prior VTE?: No VTE Risk Level:: Medical - moderate - high VTE Device Contraindication: N/A - Device Ordered VTE Drug Contraindication: N/A - Med Ordered
[2021-09-29] MEDS: lamoTRIgine 25 MG TABLET 50 MG PO (20:52)
[2021-09-30] VITALS (32 sets, daily range): BP systolic 92–152; BP diastolic 45–92; PULSE 67–125; RESP 16–22; TEMP 34.4–37.3; O2SAT 92–98; BMI 32.3
[2021-09-30] MEDS: Enoxaparin Sodium 40 MG/0.4 ML SYRINGE SUBCUT (02:34)
[2021-09-30 05:28] LABS: VBG Base Excess 9.5 mmol/L; VBG HCO3 32 mmol/L (22-26); VBG pCO2 38 mmHg; VBG pH 7.53 (7.32-7.43); VBG pO2 46 mmHg
[2021-09-30] MEDS: Levothyroxine Sodium 150 MCG TABLET PO (05:43)
[2021-09-30 05:51] LABS: MANUAL DIFF FLAG NO; Venous Blood Gas Refer to POC result
[2021-09-30 05:56] LABS: Basophils Absolute Auto 0.1 X10*3/uL (0.0-0.2); Basophils Percent Auto 0.8 % (0-2); Eosinophils Absolute Auto 0.2 X10*3/uL (0.0-0.4); Eosinophils Percent Auto 3.3 % (0-4); Hematocrit 31.9 % (37.0-47.0); Hemoglobin 9.9 g/dl (12.0-16.0); Imm Gran Abs Auto 0.03 X10*3/uL (0.00-0.03); Imm Gran Pct Auto 0.4 % (0.0-0.4); Lymphocytes Absolute Auto 1.8 X10*3/uL (1.2-4.9); Lymphocytes Percent Auto 24.3 % (20-40); Mean Corpuscular Hemoglobin 28.4 pg (27.0-33.0); Mean Corpuscular Volume 91.4 fL (80.0-98.0); Mean Platelet Volume 10.2 fL (9.4-12.3); Monocytes Absolute Auto 0.7 X10*3/uL (0.1-1.2); Monocytes Percent Auto 9.1 % (2-11); Neutrophils Absolute Auto 4.5 x10*3/uL (2.0-8.3); Neutrophils Percent Auto 62.1 % (45-73); Platelet Count 302 X10*3/uL (160-400); Red Blood Count 3.49 X10*6/uL (4.20-5.50); Red Cell Distribution Width 14.1 % (11.0-16.0); White Blood Count 7.2 X10*3/uL (4.8-10.8)
[2021-09-30 06:16] LABS: Alanine Aminotransferase 43 U/L (0-31); Albumin Level 3.6 g/dL (3.5-5.0); Alkaline Phosphatase 86 U/L (39-117); Anion Gap 16 (12-20); Aspartate Amino Transferase 42 U/L (5-31); Bilirubin Total 1.1 mg/dL (0.0-1.0); Blood Urea Nitrogen 19 mg/dL (9-16); Calcium 9.4 mg/dL (8.4-10.2); Carbon Dioxide 29 mmol/L (22-29); Chloride 107 mmol/L (96-108); Creatinine Clr Calc Pharmacy 76.8; Estimated Glomerular Filt Rate > 60; Glucose Random 91 mg/dL (60-115); Potassium 2.9 mmol/L (3.3-5.1); Sodium 149 mmol/L (135-145); Total Protein 6.2 g/dL (6.5-8.0)
[2021-09-30] MEDS: Famotidine/PF 20 MG/2 ML VIAL IVPUSH (08:14)
[2021-09-30] MEDS: Potassium Chloride Packet 20 MEQ PACKET 40 MEQ PO (08:14)
[2021-09-30] MEDS: lamoTRIgine 25 MG TABLET 50 MG PO ×2 (08:14→20:41)
[2021-09-30] MEDS: Lactulose 20 GM/30 ML SOLUTION 30 GM PO (08:14)
[2021-09-30] MEDS: Chlorhexidine Gluc Oral Rinse 15 ML MOUTHWASH BUCCAL ×3 (08:14→20:41)
--- NOTE | 2021-09-30 09:15 | MHC.CLN ---
F/U PT S/P TRACH AND PEG PT RECEIVING PROMOTE AT GOAL RATE 60ML/HR WITH 240CC FREE WATER Q SHIFT PROVIDES 1440KCALS, 90G PROTEIN (1.2G/KG), 1928CC TOTAL FREE WATER FROM FORMULA AND FLUSHES (25ML/KG) RECOMMEND CHANGE IN FORMULA TO JEVITY 1.0 AT MAX GOAL RATE 70ML/HR WITH 120CC FREE WATER FLUSHES Q 6HRS TO PROVIDE 1781KCALS (23KCALS/KG BASED ON CMW), 74G PROTEIN (.96G/KG), 1967ML TOTAL WATER FROM FORMULA AND FLUSHES (26ML/KG) START NEW FORMULA AT 20ML/HR AND INCREASE BY 10ML Q 4HRS UNTIL MAX GOAL IS REACHED CONTINUE TO MONITOR TOLERANCE, RESIDUALS AND LYTES
--- NOTE | 2021-09-30 13:34 | P.PNCC_ITS ---
Subjective Subjective Date of Service: 09/30/21 Interval History: 71-year-old female with acute on chronic hypercarbic and hypoxic respiratory failure intubated several times and failed extubation trials on each occasion now status post tracheostomy and has a contributing factor to failure to wean from the ventilator could also be what I believe is a critical degree of aortic valvular stenosis with a diminished left ventricular systolic reserve behind it and she remains in normal sinus rhythm with a lot of atrial arrhythmia nothing of a sustain nature and mental status is excellent with good cognitive function and good behavioral control and cooperative and were working now with physical therapy and were working the no to wean her to a pressure support of mechanism as we simultaneously make application to a long-term acute care and starting feeding through the PEG tube at this point and there may come a time when she will qualify for cardiac catheterization and if indeed the valve is critical possibly a trans catheter valve replacement but right now she has been stable on the ventilator in volume control with very comfortable minutes ventilatory requirements and minimal FiO2 of 30% and clearly repairing lung Critical Care Time (minutes): 45 Physical Exam Vital Signs: Vital Signs: Last Vital Signs Temp 97.8 F 09/30/21 12:00 Pulse 98 09/30/21 13:00 Resp 19 09/30/21 13:00 BP 136/57 L 09/30/21 13:00 Pulse Ox 95 09/30/21 13:00 Oxygen Flow Rate 4 09/09/21 22:09 BMI result Body Mass Index 32.3 awake and alert and nonfocal classic parvus and tardus carotid upstrokes with normal CVP and late peaking systolic murmur consistent with significant aortic stenosis abdomen benign no organomegaly and tolerating PEG tub e feedings lungs without accessory muscle use with nor diaphragmatic effort Objective Data Labs CBC & Chem 7: 09/30/21 05:15 09/30/21 05:15 Labs: Laboratory Results - last 24 hr 09/30/21 09/30/21 09/30/21 05:15 05:15 05:22 WBC 7.2 RBC 3.49 L Hgb 9.9 L Hct 31.9 L MCV 91.4 MCH 28.4 MCHC 31.0 RDW 14.1 Plt Count 302 MPV 10.2 Immature Gran % (Auto) 0.4 Neut % (Auto) 62.1 Lymph % (Auto) 24.3 [place] % (Auto) 9.1 Eos % (Auto) 3.3 Baso % (Auto) 0.8 Lymph # (Auto) 1.8 [place] # (Auto) 0.7 Eos # (Auto) 0.2 Baso # (Auto) 0.1 Abs Immat Gran (auto) 0.03 Absolute Neuts (auto) 4.5 Absolute Nucleated RBC 0.000 Nucleated RBC % (auto) 0.0 VBG pH 7.53 H VBG pCO2 38 VBG pO2 46 VBG HCO3 32 H VBG O2 Saturation 73.0 VBG Base Excess 9.5 Sodium 149 H Potassium 2.9 L Chloride 107 Carbon Dioxide 29 Anion Gap 16 BUN 19 H Creatinine 0.80 Estim Creat Clear Calc 76.8 Estimated GFR > 60 Random Glucose 91 Calcium 9.4 Total Bilirubin 1.1 H AST 42 H ALT 43 H Alkaline Phosphatase 86 Total Protein 6.2 L Albumin 3.6 Microbiology Microbiology Results: Microbiology 09/17/21 07:32 Sputum - Suctioned Gram Stain - Final 09/17/21 07:32 Sputum - Suctioned Sputum Culture - Final [place] tropicalis 09/14/21 08:55 Blood - Venous Blood Culture - Final No growth after 5 days. 09/14/21 10:10 Catheter Tip - Cvp Catheter Tip Culture - Final 09/12/21 05:20 Blood - Venous Blood Culture - Final No growth after 5 days. 09/12/21 05:32 Blood - Venous Blood Culture - Final No growth after 5 days. 09/14/21 08:46 Blood - Venous Blood Culture - Final Coag negative Staphylococcus 09/09/21 22:41 Blood - Venous Blood Culture - Final No growth after 5 days. 09/09/21 22:41 Blood - Venous Blood Culture - Final Coag negative Staphylococcus 09/10/21 05:00 Sputum - Suctioned Gram Stain - Final 09/10/21 05:00 Sputum - Suctioned Sputum Culture - Final No growth. 09/10/21 00:00 Urine Catheterized - [facility] Catheter Urine Culture - Final Enterococcus faecalis Progress Note: A&P Assessment and plan (1) Acute on chronic respiratory failure with hypoxia and hypercapnia: Status: Acute (2) Acute CHF: Status: Acute (3) Acute metabolic encephalopathy: Status: Acute (4) CAP (community acquired pneumonia): Status: Acute (5) Acute on chronic diastolic (congestive) heart failure: Status: Acute (6) Recurrent incisional hernia: Status: Acute (7) Acute CVA (cerebrovascular accident): Status: Acute (8) Fall: Status: Acute (9) Cerebral infarction: Status: Acute (10) Acute respiratory failure: Status: Acute (11) CHF exacerbation: Status: Acute (12) COPD exacerbation: Status: Acute (13) Altered mental state: Status: Acute (14) Atrial tachycardia: Status: Acute (15) Hypernatremia: Status: Acute (16) Agitation: Status: Acute (17) Aortic stenosis: Status: Acute (18) Failure to wean from mechanical ventilation: Status: Acute (19) Pulmonary aspiration: Status: Acute (20) Thoracic aortic aneurysm (TAA): Status: Acute (21) Enuresis: Status: Acute (22) Urge incontinence: Status: Acute (23) Respiratory failure with hypoxia and hypercapnia: Status: Acute (24) COPD (chronic obstructive pulmonary disease): Status: Acute (25) Chronic diastolic (congestive) heart failure: Status: Acute (26) Atrial arrhythmia: Status: Acute (27) DHEERAJ (obstructive sleep apnea): Status: Acute (28) On home oxygen therapy: Status: Acute (29) Bifascicular block: Status: Acute (30) Atherosclerotic cardiovascular disease: Status: Acute (31) Nonrheumatic aortic (valve) stenosis: Status: Acute Assessment and Plan: continue physical therapy and ventilator weaning process follow closely intake and output because of sodium of 149 the this morning I am going to hydrate with a D5W for the water deficit as a supplement to the feedings with free water there as well Quality Stroke Does the patient have a stroke diagnosis?: No VTE Prior VTE?: No VTE Risk Level:: Medical - moderate - high VTE Device Contraindication: N/A - Device Ordered VTE Drug Contraindication: N/A - Med Ordered
[2021-10-01] VITALS (33 sets, daily range): BP systolic 88–143; BP diastolic 43–78; PULSE 51–120; RESP 14–20; TEMP 31–37.5; O2SAT 90–98; BMI 33.0
[2021-10-01 00:10] LABS: Anion Gap 13 (12-20); Blood Urea Nitrogen 18 mg/dL (9-16); Calcium 9.6 mg/dL (8.4-10.2); Carbon Dioxide 30 mmol/L (22-29); Chloride 107 mmol/L (96-108); Creatinine Clr Calc Pharmacy 80.8; Estimated Glomerular Filt Rate > 60; Glucose Random 112 mg/dL (60-115); Potassium 2.9 mmol/L (3.3-5.1); Sodium 147 mmol/L (135-145)
[2021-10-01] MEDS: Potassium Chloride Packet 20 MEQ PACKET 40 MEQ PO (01:02)
[2021-10-01] MEDS: Dextrose 5 % and 0.45 % NaCl 500 ML 100 ML IVCONT ×2 (01:06→05:42)
[2021-10-01] MEDS: Enoxaparin Sodium 40 MG/0.4 ML SYRINGE SUBCUT (02:17)
--- NOTE | 2021-10-01 03:07 | PC.NURSE ---
Addendum entered by Matt Montes RN 10/02/21 05:30: Update: pt was given note pad to write with around 0400, pt wrote scribbles, nothing legible. Pt has had multiple suctions with thick red/pink mucous with small clots. Pt remains resistive to care. Original Note: Received patient in report. Upon initial assessment pt had BM. Pt was alert and could answer questions with yes and no nods. Pt did reach for tubes and lines when unrestrained, and attempt to get out of bed by throwing her legs over the side. Pt was resistant to care throughout the night. Pt is alert, pupils perrl but continues to attempt to pull at tubes and lines. pt is vented through her trach with LS clear but diminished. Vent settings are R-16, volume- 400, peep 5, 30% O2. Pt has a bundle branch block with an irregular heart rate. No edema noted. CVP of 3. Pt did get hypotensive (SBP 70s-80s) at 0245 which is when levophed was restarted. Pt has a new PEG tube and is receiving jevity with good tolerance and minimal residuals (<50ml). It was noted the patients K was low so she was given 40meq of potassium via the peg tube. Pt has a wound on lower abd that is bandaged and is clean dry and intact. Pt does have a broderick. Initially broderick output was on the low end of normal (30mls) but decreased through the night to 5-10mls/hr of concentrated urine. approximately 0030 PA was notified and pt was given fluids. Pt is generally weak. Skin is intact with no pressure wounds noted, barrier cream was applied to glutes and coccyx.
[2021-10-01 05:33] LABS: VBG Base Excess 7.3 mmol/L; VBG HCO3 30 mmol/L (22-26); VBG pCO2 36 mmHg; VBG pH 7.52 (7.32-7.43); VBG pO2 49 mmHg
[2021-10-01] MEDS: Levothyroxine Sodium 150 MCG TABLET PO (05:43)
[2021-10-01 06:03] LABS: MANUAL DIFF FLAG NO
[2021-10-01 06:22] LABS: Venous Blood Gas Refer to POC result
[2021-10-01 06:29] LABS: Alanine Aminotransferase 42 U/L (0-31); Albumin Level 3.8 g/dL (3.5-5.0); Alkaline Phosphatase 92 U/L (39-117); Anion Gap 15 (12-20); Aspartate Amino Transferase 37 U/L (5-31); Bilirubin Total 0.9 mg/dL (0.0-1.0); Blood Urea Nitrogen 18 mg/dL (9-16); Calcium 9.6 mg/dL (8.4-10.2); Carbon Dioxide 28 mmol/L (22-29); Chloride 106 mmol/L (96-108); Creatinine Clr Calc Pharmacy 81.9; Estimated Glomerular Filt Rate > 60; Glucose Random 165 mg/dL (60-115); Potassium 3.6 mmol/L (3.3-5.1); Sodium 145 mmol/L (135-145); Total Protein 6.5 g/dL (6.5-8.0)
[2021-10-01 06:33] LABS: Basophils Absolute Auto 0.1 X10*3/uL (0.0-0.2); Basophils Percent Auto 0.7 % (0-2); Eosinophils Absolute Auto 0.3 X10*3/uL (0.0-0.4); Eosinophils Percent Auto 2.9 % (0-4); Hematocrit 32.8 % (37.0-47.0); Hemoglobin 10.1 g/dl (12.0-16.0); Imm Gran Abs Auto 0.06 X10*3/uL (0.00-0.03); Imm Gran Pct Auto 0.6 % (0.0-0.4); Lymphocytes Absolute Auto 1.8 X10*3/uL (1.2-4.9); Lymphocytes Percent Auto 18.2 % (20-40); Mean Corpuscular HGB Conc 30.8 g/dl (31.0-35.0); Mean Corpuscular Hemoglobin 28.5 pg (27.0-33.0); Mean Corpuscular Volume 92.4 fL (80.0-98.0); Mean Platelet Volume 10.4 fL (9.4-12.3); Monocytes Percent Auto 10.1 % (2-11); Neutrophils Absolute Auto 6.5 x10*3/uL (2.0-8.3); Neutrophils Percent Auto 67.5 % (45-73); Platelet Count 364 X10*3/uL (160-400); Red Blood Count 3.55 X10*6/uL (4.20-5.50); Red Cell Distribution Width 13.9 % (11.0-16.0); White Blood Count 9.6 X10*3/uL (4.8-10.8)
[2021-10-01] MEDS: Chlorhexidine Gluc Oral Rinse 15 ML MOUTHWASH BUCCAL ×3 (07:37→21:03)
[2021-10-01] MEDS: lamoTRIgine 25 MG TABLET 50 MG PO ×2 (07:37→21:02)
[2021-10-01] MEDS: Famotidine/PF 20 MG/2 ML VIAL IVPUSH (07:37)
--- NOTE | 2021-10-01 12:23 | P.PNCC_ITS ---
Subjective Subjective Date of Service: 10/01/21 Interval History: 71-year-old female with acute on chronic hypercapnia and hypoxic respiratory failure and smoked right up until admission and this time around had multiple re-intubation. Failing to wean for any length of time from the ventilator and also has significant aortic stenosis with reduced systolic reserve of her left ventricle behind that and currently after having diuresed her significantly to the point of pre renal azotemia she now has a CVP of 3 will diuresed sodium is now down from 149 to 145 euvolemic and remains in sinus rhythm with some atrial dysrhythmia and and is status post tracheostomy and PEG feeding both of which she is tolerating but thus far and a and being off sedation for for a good number of days the if we put her on pressure support and she has in the no issues with apnea and and the no behaving as though this is a central issue perhaps reflecting 2 good a pCO2 of 35 and probably too good a oxygen saturation at the same time so were going to try did pressure control with just a mandated 12 breaths a minute and see if she feels in the blanks and of course we we have physical therapy to help us Critical Care Time (minutes): 45 Physical Exam Vital Signs: Vital Signs: Last Vital Signs Temp 98.2 F 10/01/21 11:19 Pulse 86 10/01/21 12:00 Resp 16 10/01/21 12:00 BP 140/68 H 10/01/21 12:00 Pulse Ox 98 10/01/21 12:00 Oxygen Flow Rate 4 09/09/21 22:09 BMI result Body Mass Index 33.0 Awake responsive with good cognitive function and not displaying that agitation and therefore in retrospect elevated pCO2 may have been playing a substantial role in previous behavior issues Classic parvus and tardus upstrokes of the carotids with late peaking systolic murmur of aortic stenosis lungs clear abdomen benign and tolerating feedings and no evidence of peripheral edema Objective Data Labs CBC & Chem 7: 10/01/21 05:22 10/01/21 05:22 Labs: Laboratory Results - last 24 hr 09/30/21 10/01/21 10/01/21 23:32 05:22 05:22 WBC 9.6 RBC 3.55 L Hgb 10.1 L Hct 32.8 L MCV 92.4 MCH 28.5 MCHC 30.8 L RDW 13.9 Plt Count 364 MPV 10.4 Immature Gran % (Auto) 0.6 H Neut % (Auto) 67.5 Lymph % (Auto) 18.2 L [place] % (Auto) 10.1 Eos % (Auto) 2.9 Baso % (Auto) 0.7 Lymph # (Auto) 1.8 [place] # (Auto) 1.0 Eos # (Auto) 0.3 Baso # (Auto) 0.1 Abs Immat Gran (auto) 0.06 H Absolute Neuts (auto) 6.5 Absolute Nucleated RBC 0.000 Nucleated RBC % (auto) 0.0 VBG pH VBG pCO2 VBG pO2 VBG HCO3 VBG O2 Saturation VBG Base Excess Sodium 147 H 145 Potassium 2.9 L 3.6 D Chloride 107 106 Carbon Dioxide 30 H 28 Anion Gap 13 15 BUN 18 H 18 H Creatinine 0.76 0.76 Estim Creat Clear Calc 80.8 81.9 Estimated GFR > 60 > 60 Random Glucose 112 165 H Calcium 9.6 9.6 Total Bilirubin 0.9 AST 37 H ALT 42 H Alkaline Phosphatase 92 Total Protein 6.5 Albumin 3.8 10/01/21 05:27 WBC RBC Hgb Hct MCV MCH MCHC RDW Plt Count MPV Immature Gran % (Auto) Neut % (Auto) Lymph % (Auto) [place] % (Auto) Eos % (Auto) Baso % (Auto) Lymph # (Auto) [place] # (Auto) Eos # (Auto) Baso # (Auto) Abs Immat Gran (auto) Absolute Neuts (auto) Absolute Nucleated RBC Nucleated RBC % (auto) VBG pH 7.52 H VBG pCO2 36 VBG pO2 49 VBG HCO3 30 H VBG O2 Saturation 78.0 VBG Base Excess 7.3 Sodium Potassium Chloride Carbon Dioxide Anion Gap BUN Creatinine Estim Creat Clear Calc Estimated GFR Random Glucose Calcium Total Bilirubin AST ALT Alkaline Phosphatase Total Protein Albumin Microbiology Microbiology Results: Microbiology 09/17/21 07:32 Sputum - Suctioned Gram Stain - Final 09/17/21 07:32 Sputum - Suctioned Sputum Culture - Final [place] tropicalis 09/14/21 08:55 Blood - Venous Blood Culture - Final No growth after 5 days. 09/14/21 10:10 Catheter Tip - Cvp Catheter Tip Culture - Final 09/12/21 05:20 Blood - Venous Blood Culture - Final No growth after 5 days. 09/12/21 05:32 Blood - Venous Blood Culture - Final No growth after 5 days. 09/14/21 08:46 Blood - Venous Blood Culture - Final Coag negative Staphylococcus 09/09/21 22:41 Blood - Venous Blood Culture - Final No growth after 5 days. 09/09/21 22:41 Blood - Venous Blood Culture - Final Coag negative Staphylococcus 09/10/21 05:00 Sputum - Suctioned Gram Stain - Final 09/10/21 05:00 Sputum - Suctioned Sputum Culture - Final No growth. 09/10/21 00:00 Urine Catheterized - [facility] Catheter Urine Culture - Final Enterococcus faecalis Progress Note: A&P Assessment and plan (1) Acute on chronic respiratory failure with hypoxia and hypercapnia: Status: Acute (2) Acute CHF: Status: Acute (3) Acute metabolic encephalopathy: Status: Acute (4) CAP (community acquired pneumonia): Status: Acute (5) Acute on chronic diastolic (congestive) heart failure: Status: Acute (6) Recurrent incisional hernia: Status: Acute (7) COPD exacerbation: Status: Acute (8) Altered mental state: Status: Acute (9) Atrial tachycardia: Status: Acute (10) Hypernatremia: Status: Acute (11) Agitation: Status: Acute (12) Aortic stenosis: Status: Acute (13) Failure to wean from mechanical ventilation: Status: Acute (14) Pulmonary aspiration: Status: Acute (15) Thoracic aortic aneurysm (TAA): Status: Acute (16) Respiratory failure with hypoxia and hypercapnia: Status: Acute (17) Chronic diastolic (congestive) heart failure: Status: Acute (18) DHEERAJ (obstructive sleep apnea): Status: Acute (19) On home oxygen therapy: Status: Acute (20) Bifascicular block: Status: Acute Assessment and Plan: So at this point we are going to try pressure control see we could stimulate her own mechanism and give her mandated breath set about 12 per minute and hopefully she will renal gradually fill in the gap and bring her pCO2 gradually backup to wish you chronically would live which is probably between 50 and 60 and no antibiotics at this point no fluid loading will begin adjust go strictly through the feeding tube no IV Quality Stroke Does the patient have a stroke diagnosis?: No VTE Prior VTE?: No VTE Risk Level:: Medical - moderate - high VTE Device Contraindication: N/A - Device Ordered VTE Drug Contraindication: N/A - Med Ordered
[2021-10-01] MEDS: Apixaban 2.5 MG TABLET PO (21:02)
[2021-10-02] VITALS (32 sets, daily range): BP systolic 71–174; BP diastolic 41–108; PULSE 89–129; RESP 12–96; TEMP 33–37.4; O2SAT 88–100; BMI 33.0
--- NOTE | 2021-10-02 02:45 | PC.NURSE ---
Addendum entered by Matt Montes RN 10/02/21 06:20: update: 0400 pt suctioned for pink/red sputum x2. Pt given note pad to write on and pt scribbled and did not write anything recognizable or legible. at 0615 pt was found reaching for suction/trach tubing. pt advised not to reach for or pull on those lines as they are for the vent. Original Note: Received patient. upon contact pt noted to be alert. Pt was able to respond to questions with yes/no nods. pt did not always answer questions or often did not engage in assessment or questioning. Pt was often asked about comfort with no response. Pt pupils are PERRL. pt follows simple commands such as wiggle toes or squeeze fingers. Unable to determine orientation of the patient due to trach/non-verbal. Pt had intermittent episodes of agitation or what appeared to be confusion when staff entered the room. At approximately 0145 pt put legs over the side of the bed. Pt was put back in bed where patient appeared to mouth i want to go home. pt was reoriented. 15min later patient was again agitated hitting the pillows and pulling at [facility] and mouthing she wants to go home. pt was reoriented and she then appeared to mouth where is everyone? followed by why did they leave? pt was told her son would come to visit tomorrow and that she was in the hospital and on a vent. Pt was given other orientation cues. Pt was also provided the opportunity to write with a pen what she wanted to say and she did not engage. Pt appears to be having delirium symptoms. Pt vented through the trach on PC with R-10, IP- 20, Peep 5, O2 30%. Pt LS are adventitous/rhoncorus throughout and dim in the bases. Pt suctioned through the trach and very thick whitish secretions are suctioned. Pt did set off the vent alarm for low volumes early in the shift. That has since ceased, however respiratory was notified upon the first alarms. Pt has a bundle branch block and an irregular HR. No edema is noted and pt has cvp of 6. GI patient has a peg tube. Pt is on jevity at 70mls/hr with good tolerance and minimal residual (60-90). Abd is soft, no signs of tenderness, pt does not answer when asked. Pt has MRSA abd wound that is bandaged and the bandaged is clean dry and intact. Pt peg site is clean dry intact with a red stoma. Gu patient has a broderick. Pt puts out 15-40mls (PA aware) of yellow to concentrated urine. Pt skin has no pressure injuries noted. Pt is generally weak. pt has been repositioned throughout the night.
[2021-10-02] MEDS: Levothyroxine Sodium 150 MCG TABLET PO (05:17)
[2021-10-02 05:48] LABS: VBG Base Excess 8.3 mmol/L; VBG HCO3 31 mmol/L (22-26); VBG pCO2 39 mmHg; VBG pH 7.51 (7.32-7.43); VBG pO2 48 mmHg
[2021-10-02 06:20] LABS: MANUAL DIFF FLAG NO
[2021-10-02 06:36] LABS: Basophils Absolute Auto 0.1 X10*3/uL (0.0-0.2); Basophils Percent Auto 0.9 % (0-2); Eosinophils Absolute Auto 0.4 X10*3/uL (0.0-0.4); Eosinophils Percent Auto 5.9 % (0-4); Hematocrit 31.3 % (37.0-47.0); Hemoglobin 9.5 g/dl (12.0-16.0); Imm Gran Abs Auto 0.03 X10*3/uL (0.00-0.03); Imm Gran Pct Auto 0.4 % (0.0-0.4); Lymphocytes Absolute Auto 1.7 X10*3/uL (1.2-4.9); Mean Corpuscular HGB Conc 30.4 g/dl (31.0-35.0); Mean Corpuscular Hemoglobin 28.2 pg (27.0-33.0); Mean Corpuscular Volume 92.9 fL (80.0-98.0); Mean Platelet Volume 10.4 fL (9.4-12.3); Monocytes Absolute Auto 0.7 X10*3/uL (0.1-1.2); Monocytes Percent Auto 10.4 % (2-11); Neutrophils Absolute Auto 3.9 x10*3/uL (2.0-8.3); Neutrophils Percent Auto 57.4 % (45-73); Platelet Count 295 X10*3/uL (160-400); Red Blood Count 3.37 X10*6/uL (4.20-5.50); Red Cell Distribution Width 13.8 % (11.0-16.0); White Blood Count 6.8 X10*3/uL (4.8-10.8)
[2021-10-02 07:01] LABS: Alanine Aminotransferase 34 U/L (0-31); Albumin Level 3.4 g/dL (3.5-5.0); Alkaline Phosphatase 86 U/L (39-117); Anion Gap 13 (12-20); Aspartate Amino Transferase 28 U/L (5-31); Bilirubin Total 0.4 mg/dL (0.0-1.0); Blood Urea Nitrogen 15 mg/dL (9-16); Calcium 9.2 mg/dL (8.4-10.2); Carbon Dioxide 28 mmol/L (22-29); Chloride 107 mmol/L (96-108); Creatinine Clr Calc Pharmacy 98.5; Estimated Glomerular Filt Rate > 60; Glucose Random 107 mg/dL (60-115); Potassium 3.4 mmol/L (3.3-5.1); Sodium 145 mmol/L (135-145); Total Protein 5.9 g/dL (6.5-8.0)
[2021-10-02 07:35] LABS: Venous Blood Gas Refer to POC result
[2021-10-02] MEDS: Apixaban 2.5 MG TABLET PO ×2 (09:10→20:05)
[2021-10-02] MEDS: Famotidine/PF 20 MG/2 ML VIAL IVPUSH (09:10)
[2021-10-02] MEDS: Chlorhexidine Gluc Oral Rinse 15 ML MOUTHWASH BUCCAL ×2 (09:10→20:05)
[2021-10-02] MEDS: lamoTRIgine 25 MG TABLET 50 MG PO ×2 (09:10→20:05)
--- NOTE | 2021-10-02 15:29 | PM.CCPN ---
Subjective Subjective Date of Service: 10/02/21 Interval History: 71-year-old female with acute on chronic hypercarbic and hypoxic respiratory failure apparently precipitated by infection and of course a continued smoker and several attempts at extubation resulted in re-intubation during this hospital stay because of failure to wean for any length of time longus time off the ventilator was close to 4 days and last time she had a witnessed aspiration she is beyond all infectious issues and she has had tracheostomy done and she is doing extremely well good cognitive function no longer sedated and and she has another 1 that I believe has critical aortic stenosis by my measurement including in a because of her low-flow state due to a modest reduction in her left ventricular systolic reserve I get the calculated aortic valve area index that is at about 0.4 sq cm per meter squared and she has classic parvus and tardus upstrokes and I do believe it has been part of her failure to wean but she has very advanced in a chronic lung disease but now doing very well communicating by writing wears her glasses talks to her family all day and we had had her on pressure support all day on the tracheostomy with good tidal volumes good end-tidal CO2 and excellent oxygen saturation very low minutes ventilatory requirements between 6 and 7 liters/minute with excellent lab work at excellent urine output physical therapy working with her to get her out of bed and application has been made to an LTAC Critical Care Time (minutes): 45 Physical Exam Vital Signs: Vital Signs: Last Vital Signs Temp 99.1 F 10/02/21 12:00 Pulse 103 H 10/02/21 15:00 Resp 16 10/02/21 15:00 BP 126/74 10/02/21 15:00 Pulse Ox 94 10/02/21 15:00 Oxygen Flow Rate 4 09/09/21 22:09 BMI result Body Mass Index 33.0 awake and alert and nonfocal n eurologically skin is intact classic parvus and tardus carotid upstrokes consistent with significant aortic stenosis but no gal lops lungs with no adventitious sounds no significant respiratory effort abdomen soft tolerating feedings no again a megaly Objective Data Labs CBC & Chem 7: 10/02/21 05:25 10/02/21 05:25 Labs: Laboratory Results - last 24 hr 10/02/21 10/02/21 10/02/21 05:25 05:25 05:39 WBC 6.8 RBC 3.37 L Hgb 9.5 L Hct 31.3 L MCV 92.9 MCH 28.2 MCHC 30.4 L RDW 13.8 Plt Count 295 MPV 10.4 Immature Gran % (Auto) 0.4 Neut % (Auto) 57.4 Lymph % (Auto) 25.0 [place] % (Auto) 10.4 Eos % (Auto) 5.9 H Baso % (Auto) 0.9 Lymph # (Auto) 1.7 [place] # (Auto) 0.7 Eos # (Auto) 0.4 Baso # (Auto) 0.1 Abs Immat Gran (auto) 0.03 Absolute Neuts (auto) 3.9 Absolute Nucleated RBC 0.000 Nucleated RBC % (auto) 0.0 VBG pH 7.51 H VBG pCO2 39 VBG pO2 48 VBG HCO3 31 H VBG O2 Saturation 78.0 VBG Base Excess 8.3 Sodium 145 Potassium 3.4 Chloride 107 Carbon Dioxide 28 Anion Gap 13 BUN 15 Creatinine 0.63 Estim Creat Clear Calc 98.5 Estimated GFR > 60 Random Glucose 107 Calcium 9.2 Total Bilirubin 0.4 AST 28 ALT 34 H Alkaline Phosphatase 86 Total Protein 5.9 L Albumin 3.4 L Microbiology Microbiology Results: Microbiology 09/17/21 07:32 Sputum - Suctioned Gram Stain - Final 09/17/21 07:32 Sputum - Suctioned Sputum Culture - Final Beverly tropicalis 09/14/21 08:55 Blood - Venous Blood Culture - Final No growth after 5 days. 09/14/21 10:10 Catheter Tip - Cvp Catheter Tip Culture - Final 09/12/21 05:20 Blood - Venous Blood Culture - Final No growth after 5 days. 09/12/21 05:32 Blood - Venous Blood Culture - Final No growth after 5 days. 09/14/21 08:46 Blood - Venous Blood Culture - Final Coag negative Staphylococcus 09/09/21 22:41 Blood - Venous Blood Culture - Final No growth after 5 days. 09/09/21 22:41 Blood - Venous Blood Culture - Final Coag negative Staphylococcus 09/10/21 05:00 Sputum - Suctioned Gram Stain - Final 09/10/21 05:00 Sputum - Suctioned Sputum Culture - Final No growth. 09/10/21 00:00 Urine Catheterized - Stanford Catheter Urine Culture - Final Enterococcus faecalis Progress Note: A&P Assessment and plan (1) Acute on chronic respiratory failure with hypoxia and hypercapnia: Status: Acute (2) Acute CHF: Status: Acute (3) Acute metabolic encephalopathy: Status: Acute (4) CAP (community acquired pneumonia): Status: Acute (5) Acute on chronic diastolic (congestive) heart failure: Status: Acute (6) Recurrent incisional hernia: Status: Acute (7) Acute CVA (cerebrovascular accident): Status: Acute (8) Fall: Status: Acute (9) Cerebral infarction: Status: Acute (10) Acute respiratory failure: Status: Acute (11) CHF exacerbation: Status: Acute (12) COPD exacerbation: Status: Acute (13) Altered mental state: Status: Acute (14) Atrial tachycardia: Status: Acute (15) Hypernatremia: Status: Acute (16) Agitation: Status: Acute (17) Aortic stenosis: Status: Acute (18) Failure to wean from mechanical ventilation: Status: Acute (19) Pulmonary aspiration: Status: Acute (20) Thoracic aortic aneurysm (TAA): Status: Acute (21) Respiratory failure with hypoxia and hypercapnia: Status: Acute (22) COPD (chronic obstructive pulmonary disease): Status: Acute (23) Chronic diastolic (congestive) heart failure: Status: Acute (24) Atrial arrhythmia: Status: Acute (25) DHEERAJ (obstructive sleep apnea): Status: Acute (26) On home oxygen therapy: Status: Acute (27) Bifascicular block: Status: Acute (28) Nonrheumatic aortic (valve) stenosis: Status: Acute (29) Atherosclerotic cardiovascular disease: Status: Acute Assessment and Plan: so all told for her is to again attempt to be able to eventually wean her to a trach mask and possible intermittent nocturnal use of the ventilator but progressing her it at some point to a fenestrated trach so she can communicate might help her mental status but as of Sunday we should re-engage with Psychiatry that needs to be notified to help her because she does have significant behavioral issues which the family has been very helpful with and I am sure that the a lot of this is situational depression her rhythm is of no consequence in 0 it at frequent nonsustained atrial dysrhythmias but basically normal sinus I do think at some point and it is a quality of life issue and potentially even and enable ir in in discontinuing the tracheostomy might be to bite catheterization address the aortic valvular disease Quality Stroke Does the patient have a stroke diagnosis?: No VTE Prior VTE?: No VTE Risk Level:: Medical - moderate - high VTE Device Contraindication: N/A - Device Ordered VTE Drug Contraindication: N/A - Med Ordered
[2021-10-02] MEDS: QUEtiapine Fumarate 25 MG TABLET PO (23:16)
[2021-10-03] VITALS (33 sets, daily range): BP systolic 81–158; BP diastolic 40–104; PULSE 82–117; RESP 14–29; TEMP 32.8–37.1; O2SAT 88–99; BMI 32.8
[2021-10-03] MEDS: Morphine Sulfate 2 MG/ML CARTRIDGE IVPUSH (00:20)
--- NOTE | 2021-10-03 02:44 | PC.NURSE ---
Assumed care of pt at 1900. Pt alert, would nod head yes or no but clearly upset/anxious. No acute resp distress on pressure support settings via trach. continued to become more anxious. Wanted to get up. Tried to reaasure pt without success. Told pt she was in the hospital and she shook her head no. Told her she has been here for approx 3 weeks and has been in bed the most of this time. She was upset and wanted to go home. Provider at bedside. Heart rate was going up to 130-150. Seroquel 25 mg ordered and given via PEG tube. Pt also received morphine sulphate 2 mg IV with good effect. She eventually fell asleep but had to be put on AC vent settings as minute volumes were low, 400-500. BP also dropped from 134/81 to 89/40 with map 67. Provider aware of Bp Will continue to watch Bp.
--- NOTE | 2021-10-03 03:26 | PC.NURSE ---
Pt asleep. Bp dropped to 81/41. Levo started at 0.05 mcg/kg/min. Bp improved to 133/68. Levo decreased to 0.03 mcg.
[2021-10-03 05:41] LABS: VBG Base Excess 6.1 mmol/L; VBG HCO3 30 mmol/L (22-26); VBG pCO2 41 mmHg; VBG pH 7.47 (7.32-7.43); VBG pO2 44 mmHg
[2021-10-03 05:43] LABS: Venous Blood Gas Refer to POC result
[2021-10-03 05:57] LABS: MANUAL DIFF FLAG NO
[2021-10-03 06:07] LABS: Basophils Absolute Auto 0.1 X10*3/uL (0.0-0.2); Basophils Percent Auto 0.6 % (0-2); Eosinophils Absolute Auto 0.5 X10*3/uL (0.0-0.4); Eosinophils Percent Auto 6.7 % (0-4); Hematocrit 30.7 % (37.0-47.0); Hemoglobin 9.2 g/dl (12.0-16.0); Imm Gran Abs Auto 0.05 X10*3/uL (0.00-0.03); Imm Gran Pct Auto 0.6 % (0.0-0.4); Lymphocytes Absolute Auto 1.7 X10*3/uL (1.2-4.9); Lymphocytes Percent Auto 21.2 % (20-40); Mean Corpuscular Hemoglobin 28.2 pg (27.0-33.0); Mean Corpuscular Volume 94.2 fL (80.0-98.0); Mean Platelet Volume 10.4 fL (9.4-12.3); Monocytes Absolute Auto 0.7 X10*3/uL (0.1-1.2); Monocytes Percent Auto 9.2 % (2-11); Neutrophils Absolute Auto 4.8 x10*3/uL (2.0-8.3); Neutrophils Percent Auto 61.7 % (45-73); Platelet Count 306 X10*3/uL (160-400); Red Blood Count 3.26 X10*6/uL (4.20-5.50); Red Cell Distribution Width 13.8 % (11.0-16.0); White Blood Count 7.9 X10*3/uL (4.8-10.8)
[2021-10-03] MEDS: Levothyroxine Sodium 150 MCG TABLET PO (06:13)
[2021-10-03 06:29] LABS: Alanine Aminotransferase 26 U/L (0-31); Albumin Level 3.5 g/dL (3.5-5.0); Alkaline Phosphatase 77 U/L (39-117); Anion Gap 12 (12-20); Aspartate Amino Transferase 20 U/L (5-31); Bilirubin Total 0.6 mg/dL (0.0-1.0); Blood Urea Nitrogen 14 mg/dL (9-16); Calcium 9.8 mg/dL (8.4-10.2); Carbon Dioxide 29 mmol/L (22-29); Chloride 107 mmol/L (96-108); Creatinine Clr Calc Pharmacy 92.5; Estimated Glomerular Filt Rate > 60; Glucose Random 120 mg/dL (60-115); Potassium 3.5 mmol/L (3.3-5.1); Sodium 144 mmol/L (135-145); Total Protein 5.7 g/dL (6.5-8.0)
--- NOTE | 2021-10-03 06:31 | PC.NURSE ---
Pt remained calm and slept the rest of the shift after receiving seroquel and morphine. No resp issues. Continues on AC vent settings the rest of the night. Urine output low. Salazar PAC aware and wants to continue monitoring at this time. CVP 6.
[2021-10-03] MEDS: Chlorhexidine Gluc Oral Rinse 15 ML MOUTHWASH BUCCAL ×3 (08:55→22:15)
[2021-10-03] MEDS: Apixaban 2.5 MG TABLET PO ×2 (08:55→22:14)
[2021-10-03] MEDS: lamoTRIgine 25 MG TABLET 50 MG PO ×2 (08:55→22:15)
[2021-10-03] MEDS: Famotidine/PF 20 MG/2 ML VIAL IVPUSH (08:55)
[2021-10-03] MEDS: Lactulose 20 GM/30 ML SOLUTION 30 GM PO (08:55)
--- NOTE | 2021-10-03 10:04 | MHC.CLN ---
F/U PT S/P TRACH AND PEG PT RECEIVING JEVITY 1.0 AT MAX GOAL RATE 70ML/HR WITH 240CC FREE WATER FLUSHES Q 6HRS PROVIDES 1781KCALS (23KCALS/KG BASED ON CMW), 74G PROTEIN (.96G/KG), 2447ML TOTAL WATER FROM FORMULA AND FLUSHES (32ML/KG) CONTINUE TO MONITOR TOLERANCE, RESIDUALS AND LYTES
--- NOTE | 2021-10-03 11:44 | MHC.CM.PN ---
Pt has been clinically accepted at [facility] for a 10/04 transfer: clinical updates remitted: pt tolerating trach/vent and is at goal for TF. Attempted to meet with pt this am to inform her of plan: pt sedate secondary to medications given during the overnight. Messages left for pt's children Cullen (HCP) requesting callbacks to review d/c planning. CM will follow
--- NOTE | 2021-10-03 15:02 | PM.CCPN ---
Subjective Subjective Date of Service: 10/03/21 Interval History: Mrs. Maradiaga was admitted to the ICU Sep 10 with acute respiratory failure after being intubated in the ED. The patient is a 71-year-old female with PMHx of obesity, irreparable large ventral hernia(s) s/p previous repair attempt, ongoing smoker, DHEERAJ, chronic oxygen-dependent COPD with CO2 retention, moderate aortic stenosis, diastolic congestive heart failure, atrial arrhythmia, bifascicular block, thoracic aortic aneurysm, hyperlipidemia, anxiety, B12 deficiency, irritable bowel syndrome, GERD, and hypothyroidism.? She?s on 2L NC at home and she?s had consistently elevated serum bicarbonate level since Aug, 2020.? She currently takes Diamox at home. The patient lives with her son Desmond who is her healthcare proxy (cell [phone]; home [phone]). The patient was admitted to [facility] in May for hypercapnic respiratory failure.? She was again admitted 08/21-08/28- for a fall, thought 2? to subacute parietal infarct.? Dr. Sharma recommended anticoagulation, altho echo showed no LV thrombus.? Course was complicated by acute delirium which then led to hypoxemic and hypercarbic respiratory failure and two-day tracheal intubation.? She was treated with Diamox, ceftriaxone, and Zithromax.? Ultimately she was discharged home on August 28.? She was put on low dose Eliquis for stroke prophylaxis. HISTORY OF PRESENT ILLNESS:? The patient was BIBA to the ED on 09/10 because of altered mental status.? The patient denied any fevers chills or chest pain.? EMS reported that at the scene, the Sat was 88% on 2LNC. In the ED, the respiratory rate was 18 with a sat of 98% on 4 L oxygen by nasal cannula.? Heart rate was 98, blood pressure 152/74.? She was afebrile.? Patient had no JVD but she had 3+ bilateral edema.? She had mild rales noted with increased work of breathing. Labs in the ED were notable for white count of 9.6, BUN/creatinine 12/0.7, BNP 1378 (up from 762 on August 25).? Lactic acid was normal.? VBG showed 7.23/87/+6.? (Last VBG on August 25 showed 7.36/44/0.) Head CT showed expected evolution of her right parietal lobe infarct.? Chest x-ray was read as showing scattered bilateral opacities.? My reading, comparing the film to her previous films suggests pulmonary edema.? Chest CT showed multifocal right lung consolidation, especially in the lower lobe, suggestive of pneumonia.? Note that her last chest CT on August 23 also showed right lower lobe consolidation, although not as bad.? She also had mild diffuse bilateral ground-glass opacity suggestive of edema.? The patient also had a moderate to large volume of stool. She was placed on BiPAP, and then with declining mental status, subsequently intubated.? She then underwent a CT angiogram which showed no pulmonary emboli.? The CTPA also showed that the main pulmonary artery was dilated; she had marked LVH, with smallish LV cavity, such that RV:LV cavity ratio was 1.0; both atria were huge.? The RLL infiltrate on the CTPA was much less impressive. The patient was admitted to the ICU, a central line is placed, and she was treated with antibiotics and diuresis.? She also briefly had AFib with RVR and was put on diltiazem, but not long after converted to SR with freq PACs.? She was treated with vancomycin for an enterococcal urinary tract infection. She was extubated on 09/12.? She converted to SR with runs of atrial tachycardia.? She continued to use BiPAP prn after extubation.? The patient has a longstanding psychiatric history and required multiple doses of antipsychotics for behavior control.? She developed a coag-negative staph bacteremia. She required re-intubation on September 16.? She was treated for obstipation.? Last echocardiogram done on 09/19/2021 with the patient on dobutamine showed: - Normal left ventricular size and systolic function. - Mildly increased right ventricular cavity size, w normal right ventricular systolic function. - Moderate aortic valve stenosis.? Peak velocity 3.40 m/s.? Mean gradient 30 mmHg.? Valve area 1.31 cm2. ?Stroke volume 118 ml. - Tricuspid valve peak velocity 2.49 m/s (gradient 25mm). - inferior vena cava dilated we with no inspiratory collapse. The patient was diuresed and extubated on September 20.? Unfortunately she aspirated and required re-intubation within 4 hours.? She was given 3 days of Unasyn.? She underwent tracheostomy and PEG on Sep 28. ?She?s been weaning slowly since then.? Her rhythm has been consistently SR with runs of atrial tachycardia. Today, she?s off all sedation, she?s just on Lamictal 50 mg bid and Seroquel 25mg qhs.? She?s fully awake and easily interactive.? She?s very unhappy.? We deflated her trach cuff and she let loose with an angry diatribe.? I explained to her why we had to do the tracheostomy.? Mostly, she?s been calm.? HR is 92, SR with freq PACs.? BP 129/87.? On AC 16/400/30%/+5, RR is 17, Ve 6.6L, PIP 29cm, Sat 96%.? CVBG this morning showed 7.47/41/+6.? She remains afebrile.? No JVD at 30 degrees.? Chest is clear to auscultation, with a normal expiratory phase.? Heart rate and rhythm are irregular, with normal-sounding S1 and S2, and a 2-3/6 mid-peaking systolic ejection murmur.? Abdomen shows her large midline ventral hernia, with about a golf-ball sized hard, mobile mass caudal to it (a seroma, according to Dr. Foster; unchanged from May).? She has about 1+ pretibial edema, no signif central edema. LABORATORY DATA:? As below.? Notably, K is 3.5. MICROBIOLOGY:? No recent cultures.? No Abx. We put her on PSV trial.? On PSV 15/30%/+5, RR was 20, Vt 350cc, Ve 6.5L, PIP 201cm, ETCO2 29mm, SpO2 96%. IMPRESSION: 1. End-stage COPD with chronic CO2 retention.? No evidence of COPD exacerbation.? No steroids indicated. 2. S/P right parietal stroke.? In Dr. Sharma?s opinion the location of the stroke is most suggestive of an embolic phenomenon.? That is why he recommended anticoagulation.? We?ll continue the Eliquis 2.5 mg bid. 3. Acute on chronic hypercapnic respiratory failure.? Etiology seems most likely to be CHF.? BNP has been as high as 2800 this hospitalization, and has been rising through this year. 4. Possible congestive heart failure.? Her LVH is impressive, she undoubtedly has some diastolic heart failure.? The question is why her heart failure seems to be getting worse.? Which begs the question, how bad her aortic stenosis really is. 5. Undoubtedly also has RHF.? Makes it difficult to diurese her because she?ll become hypotensive. 6. Moderate-severe aortic stenosis by echo and by physical exam.? Question is, how much is that contributing to her CHF, and at what point would consideration of a TAVR be warranted.? Dr. Page has seen her and feels that no intervention for her valve is indicated at that time.? On the other hand, Dr. Proctor feels that her gradient is much higher than previously measured, and her valve area could be below 0.5 cm2.? In his opinion, she should undergo cardiac catheterization after her acute illness resolves. 7. Heart rhythm:? Mostly SR with freq PACs.? Discussed at length with Dr. Proctor.? There is no treatment.? She is not a candidate for beta-blockers. 8. History of DHEERAJ.? Her head and neck habitus are highly suggestive.? Tracheostomy may solve that problems. 9. H/o thoracic aortic aneurysm.? Should be addressed as an outpatient. 10. Metabolic alkalosis.? Secondary to end-stage COPD, along with diuresis.? I?ll put her back on Diamox 250 mg daily. 11. Large ventral hernia.? The patient was seen in consultation in May by Dr. Foster.? She wrote that the patient ?has a known recurrent incisional hernia and a known seroma of her lower abdominal wall?.? The patient is not a surgical candidate at this time. 12. Neuro/psych:? Seems to be doing about as well as can reasonably be expected on the Lamictal and Seroquel. 13. Laxation.? On daily Lactulose. 14. Hypothyroid.? Normal TSH and Free T4 on the levothyroxine. 15. Nutrition:? On goal rate Jevity. Critical care time (including full chart review and hospital course summary):? 100+ minutes. Critical Care Time (minutes): 100 Physical Exam Vital Signs: Vital Signs: Last Vital Signs Temp 98.7 F 10/03/21 12:00 Pulse 88 12/20/21 14:00 Resp 20 10/03/21 14:00 BP 124/70 10/03/21 14:00 Pulse Ox 94 10/03/21 14:00 Oxygen Flow Rate 4 09/09/21 22:09 BMI result Body Mass Index 32.8 Objective Data Labs CBC & Chem 7: 10/03/21 05:30 10/03/21 05:30 Labs: Laboratory Results - last 24 hr 10/03/21 10/03/21 10/03/21 05:30 05:30 05:35 WBC 7.9 RBC 3.26 L Hgb 9.2 L Hct 30.7 L MCV 94.2 MCH 28.2 MCHC 30.0 L RDW 13.8 Plt Count 306 MPV 10.4 Immature Gran % (Auto) 0.6 H Neut % (Auto) 61.7 Lymph % (Auto) 21.2 [place] % (Auto) 9.2 Eos % (Auto) 6.7 H Baso % (Auto) 0.6 Lymph # (Auto) 1.7 [place] # (Auto) 0.7 Eos # (Auto) 0.5 H Baso # (Auto) 0.1 Abs Immat Gran (auto) 0.05 H Absolute Neuts (auto) 4.8 Absolute Nucleated RBC 0.000 Nucleated RBC % (auto) 0.0 VBG pH 7.47 H VBG pCO2 41 VBG pO2 44 VBG HCO3 30 H VBG O2 Saturation 72.0 VBG Base Excess 6.1 Sodium 144 Potassium 3.5 Chloride 107 Carbon Dioxide 29 Anion Gap 12 BUN 14 Creatinine 0.67 Estim Creat Clear Calc 92.5 Estimated GFR > 60 Random Glucose 120 H Calcium 9.8 D Total Bilirubin 0.6 AST 20 ALT 26 Alkaline Phosphatase 77 Total Protein 5.7 L Albumin 3.5 Microbiology Microbiology Results: Microbiology 09/17/21 07:32 Sputum - Suctioned Gram Stain - Final 09/17/21 07:32 Sputum - Suctioned Sputum Culture - Final Beverly tropicalis 09/14/21 08:55 Blood - Venous Blood Culture - Final No growth after 5 days. 09/14/21 10:10 Catheter Tip - Cvp Catheter Tip Culture - Final 09/12/21 05:20 Blood - Venous Blood Culture - Final No growth after 5 days. 09/12/21 05:32 Blood - Venous Blood Culture - Final No growth after 5 days. 09/14/21 08:46 Blood - Venous Blood Culture - Final Coag negative Staphylococcus 09/09/21 22:41 Blood - Venous Blood Culture - Final No growth after 5 days. 09/09/21 22:41 Blood - Venous Blood Culture - Final Coag negative Staphylococcus 09/10/21 05:00 Sputum - Suctioned Gram Stain - Final 09/10/21 05:00 Sputum - Suctioned Sputum Culture - Final No growth. 09/10/21 00:00 Urine Catheterized - Stanford Catheter Urine Culture - Final Enterococcus faecalis Quality Stroke Does the patient have a stroke diagnosis?: No VTE Prior VTE?: No VTE Risk Level:: Medical - moderate - high VTE Device Contraindication: N/A - Device Ordered VTE Drug Contraindication: N/A - Med Ordered Critical Care Time Critical Care Time (minutes): 90
--- NOTE | 2021-10-03 18:41 | PC.NURSE ---
Remains trach'd to vent; AC 16, Vt 400, FiO2 30% PEEP 5. Tolerating vent settings without sedation. Restraints removed today. Patient able to follow commands. Temperament crabby, not wanting to just sit around . Redirected several times as she is not yet strong enough to stand or ambulate. Patient is able to mouth her words clearly enough for caregivers to read her lips. No sedation. Denies pain. VSS, Levophed drip weaned off. BP stable throughout rest of day. Scant, thin clear secretions suctioned inline. Trach site intact. Tube feeds through PEG at goal rate. Water bolus 240mL at 1500 today. UO 20-45mL/hr, concentrated. 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 Trace edema to Bilat upper and lower extremities. Son in to visit today, said he'd return at 1900
[2021-10-03] MEDS: Potassium Chloride Packet 20 MEQ PACKET 40 MEQ PO (22:14)
[2021-10-03] MEDS: QUEtiapine Fumarate 25 MG TABLET PO (22:14)
[2021-10-03] MEDS: acetaZOLAMIDE 250 MG TABLET G-TUBE (22:15)
[2021-10-04] VITALS (17 sets, daily range): BP systolic 86–127; BP diastolic 48–71; PULSE 67–125; RESP 10–28; TEMP 33.96–37.1; O2SAT 31–99; BMI 32.8
[2021-10-04] MEDS: Potassium Chloride Packet 20 MEQ PACKET 40 MEQ PO (00:43)
[2021-10-04] MEDS: Gabapentin 300 MG CAPSULE 600 MG G-TUBE (02:23)
[2021-10-04 05:31] LABS: VBG Base Excess 0.9 mmol/L; VBG HCO3 25 mmol/L (22-26); VBG pCO2 39 mmHg; VBG pH 7.41 (7.32-7.43); VBG pO2 44 mmHg
[2021-10-04 05:35] LABS: Venous Blood Gas Refer to POC result
[2021-10-04 06:08] LABS: Anion Gap 10 (12-20); Blood Urea Nitrogen 14 mg/dL (9-16); Calcium 9.9 mg/dL (8.4-10.2); Carbon Dioxide 30 mmol/L (22-29); Chloride 108 mmol/L (96-108); Creatinine Clr Calc Pharmacy 89.8; Estimated Glomerular Filt Rate > 60; Glucose Random 100 mg/dL (60-115); Magnesium 2.3 mg/dL (1.6-2.6); Phosphorus 4.1 mg/dL (2.7-4.5); Potassium 4.2 mmol/L (3.3-5.1); Sodium 144 mmol/L (135-145)
[2021-10-04 06:12] LABS: B Type Natriuretic Peptide 1965 pg/mL (<100)
--- NOTE | 2021-10-04 06:28 | MHC.PIE ---
Patient agitated - restless - putting legs over railing frequently, not able to be redirected. Dr Ferrell at bedside - ordered one time dose gabapentin - given at 0223. Patient finally asleep at approx 0530. Patient repositioned frequently - linen changed. trach - 8 portex - disposable inner cannula changed at 8pm rounds by RT. Suctioned frequently for moderate to large amt white frothy sputum. Tolerating pressure support settings.
[2021-10-04] MEDS: Levothyroxine Sodium 150 MCG TABLET PO (06:40)
[2021-10-04] MEDS: Famotidine/PF 20 MG/2 ML VIAL IVPUSH (08:56)
[2021-10-04] MEDS: Chlorhexidine Gluc Oral Rinse 15 ML MOUTHWASH BUCCAL (08:56)
[2021-10-04] MEDS: Lactulose 20 GM/30 ML SOLUTION 30 GM PO (08:56)
[2021-10-04] MEDS: acetaZOLAMIDE 250 MG TABLET G-TUBE (08:57)
[2021-10-04] MEDS: Apixaban 2.5 MG TABLET PO (08:57)
[2021-10-04] MEDS: lamoTRIgine 25 MG TABLET 50 MG PO (08:57)
--- NOTE | 2021-10-04 09:53 | MHC.CM.PN ---
Addendum entered by Apryl Adams 10/04/21 14:12: Met with Nicholas and pt to discuss d/c plans. Nicholas verbalized many concerns but ultimately was reassured and accepted the d/c plan for pt to go to [facility] and begin her PT/OT and rehab care in anticipation of an eventual return to home. Pt booked for [facility] at 1PM: Rapid COVID negative. Original Note: Spoke with son, Nicholas at length this am re; transfer to [facility]. He wasn't able to call back yesterday as he didn't get his phone messages until late Son concerned with pt transferring, so soon after peg/trach placement. Re-explained the necessity for pt to begin rehab now that she has permanent respiratory management and is tolerating nutritional support at goal rate. Re-educated Nicholas on LTAC services and care. Also re-explained the LTAC bed shortage and limited facility options his mother had. He verbalized concern with his mother needing to be in a good place mentally before transfer and would like to speak with the MD about medications, evals and other treatments he feels are needed. Nicholas will be in today at 10:30 to address his issues. Updated RN and MD - awaiting [facility] communication to arrange for transfer likely this afternoon via ALS.
--- NOTE | 2021-10-04 11:08 | P.PNCC_ITS ---
Subjective Subjective Date of Service: 10/04/21 Interval History: Mrs. Maradiaga was admitted to the ICU Sep 10 with acute respiratory failure after being intubated in the ED. The patient is a 71-year-old female with PMHx of obesity, irreparable large ventral hernia(s) s/p previous repair attempt, ongoing smoker, DHEERAJ, chronic oxygen-dependent COPD with CO2 retention, moderate aortic stenosis, diastolic congestive heart failure, atrial arrhythmia, bifascicular block, thoracic aortic aneurysm, hyperlipidemia, anxiety, B12 deficiency, irritable bowel syndrome, GERD, and hypothyroidism.? She?s on 2L NC at home and she?s had consistently el evated serum bicarbonate level since Aug, 2020.? She currently takes Diamox at home. The patient lives with her son Desmond who is her healthcare proxy (cell [phone]; home [phone]). The patient was admitted to [facility] [place] in May for hypercapnic respiratory failure.? She was again admitted 08/21-08/28- for a fall, thought 2? to subacute parietal infarct.? Dr. Sharma recommended anticoagulation, altho echo showed no LV thrombus.? Course was complicated by acute delirium which then led to hypoxemic and hypercarbic respiratory failure and two-day tracheal intubation.? She was treated with Diamox, ceftriaxone, and Zithromax.? Ultimately she was discharged home on August 28.? She was put on low dose Eliquis for stroke prophylaxis. HISTORY OF PRESENT ILLNESS:? The patient was BIBA to the ED on 09/10 because of altered mental status.? The patient denied any fevers chills or chest pain.? EMS reported that at the scene, the Sat was 88% on 2LNC. In the ED, the respiratory rate was 18 with a sat of 98% on 4 L oxygen by nasal cannula.? Heart rate was 98, blood pressure 152/74.? She was afebrile.? Patient had no JVD but she had 3+ bilateral edema.? She had mild rales noted with increased work of breathing. Labs in the ED were notable for white count of 9.6, BUN/creatinine 12/0.7, BNP 1378 (up from 762 on August 25).? Lactic acid was normal.? VBG showed 7.23/87/+6.? (Last VBG on August 25 showed 7.36/44/0.) Head CT showed expected evolution of her right parietal lobe infarct.? Chest x- ray was read as showing scattered bilateral opacities.? My reading, comparing the film to her previous films suggests pulmonary edema.? Chest CT showed multifocal right lung consolidation, especially in the lower lobe, suggestive of pneumonia.? Note that her last chest CT on August 23 also showed right lower lobe consolidation, although not as bad.? She also had mild diffuse bilateral ground-glass opacity suggestive of edema.? The patient also had a moderate to large volume of stool. She was placed on BiPAP, and then with declining mental status, subsequently intubated.? She then underwent a CT angiogram which showed no pulmonary emboli.? The CTPA also showed that the main pulmonary artery was dilated; she had marked LVH, with smallish LV cavity, such that RV:LV cavity ratio was 1.0; both atria were huge.? The RLL infiltrate on the CTPA was much less impressive. The patient was admitted to the ICU, a central line is placed, and she was treated with antibiotics and diuresis.? She also briefly had AFib with RVR and was put on diltiazem, but not long after converted to SR with freq PACs.? She was treated with vancomycin for an enterococcal urinary tract infection. She was extubated on 09/12.? She converted to SR with runs of atrial tachycardia.? She continued to use BiPAP prn after extubation.? The patient has a longstanding psychiatric history and required multiple doses of antipsychotics for behavior control.? She developed a coag-negative staph bacteremia. She required re-intubation on September 16.? She was treated for obstipation.? Last echocardiogram done on 09/19/2021 with the patient on dobutamine showed: - Normal left ventricular size and systolic function. - Mildly increased right ventricular cavity size, w normal right ventricular systolic function. - Moderate aortic valve stenosis.? Peak velocity 3.40 m/s.? Mean gradient 30 mmHg.? Valve area 1.31 cm2. ?Stroke volume 118 ml. - Tricuspid valve peak velocity 2.49 m/s (gradient 25mm). - inferior vena cava dilated we with no inspiratory collapse. The patient was diuresed and extubated on September 20.? Unfortunately she aspirated and required re-intubation within 4 hours.? She was given 3 days of Unasyn.? She underwent tracheostomy and PEG on Sep 28.? She?s been weaning slowly since then.? Her rhythm has been consistently SR with runs of atrial tachycardia. Yesterday (Oct 03) she was off all sedation, just on Lamictal 50 mg bid and Seroquel 25mg qhs because of behavioral issues.? She was fully awake and easily interactive, altho unhappy.? We deflated her trach cuff and she let loose with an angry diatribe.? I explained to her why we had to do the tracheostomy.? Mostly, she?s been calm.? She transitioned easily to pressure support ventilation with pressure support of 15. ?On a level of pressure support of 12 cm, she felt dyspneic.? She stayed on PSV yesterday for a number of hours.? She went back on AC overnite, then back onto PSV this morning. She?s fully awake this morning and calm.? Breathing easy on pressure support ventilation on PSV 18/30%/+5.? Respiratory rate is 10, VT 510cc, Ve 5.5L.? Central venous blood gas this morning showed 7.41/39/0 on very low dose Diamox.? She remains afebrile.? HR 70, BP 117/69. LABORATORY DATA:? As below.? Notably, K is up to 4.2 after repletion yesterday.? On the monitor, she?s still having freq PACs, but much less tachycardia. MICROBIOLOGY:? No recent cultures.? No Abx. IMPRESSION: 1. End-stage COPD with chronic CO2 retention.? No evidence of COPD exacerbation.? No steroids indicated. 2. S/P right parietal stroke.? In Dr. Sharma?s opinion the location of the s troke is most suggestive of an embolic phenomenon.? That is why he recommended anticoagulation.? We?ll continue the Eliquis 2.5 mg bid. 3. Acute on chronic hypercapnic respiratory failure.? Etiology seems most likely to be CHF.? BNP has been as high as 2800 this hospitalization, and has been rising through this year. 4. Congestive heart failure.? Her LVH is impressive, she undoubtedly has some d iastolic heart failure.? The question is why her heart failure seems to be getting worse.? Which begs the question, how bad her aortic stenosis really is. 5. Undoubtedly also has RHF.? Makes it difficult to diurese her because she?ll become hypotensive. 6. Moderate-severe aortic stenosis by echo and by physical exam.? Question is, how much is that contributing to her CHF, and at what point would consideration of a TAVR be warranted.? Dr. Page has seen her and feels that no intervention for her valve is indicated at that time.? On the other hand, Dr. Proctor feels that her gradient is much higher than previously measured, and her valve area could be below 0.5 cm2, which means critical . ?In his opinion, she should undergo cardiac catheterization to definitively determine her aortic gradient, after her acute illness resolves. 7. Heart rhythm:? Mostly SR with freq PACs.? Discussed at length with Dr. Proctor.? There is no treatment.? She is not a candidate for beta-blockers.? Best management is to keep her potassium and Magnesium in at least mid-range levels.? Repleting her potassium yesterday has definitely improved and slowed her rhythm. 8. History of DHEERAJ.? Her head and neck habitus are highly suggestive.? Tracheostomy may solve that problem. 9. H/o thoracic aortic aneurysm.? Should be addressed as an outpatient. 10. Metabolic alkalosis.? Secondary to end-stage COPD, along with diuresis.? I put her back on Diamox 250 mg daily, but she?s down to a base excess of zero today, so I?ll have to d/c the Diamox.? At [facility], her bicarb should be followed, and if it rises, she should? be given Diamox 250 mg po once or twice daily to keep her serum bicarb at the high end of normal.? That will help prevent her pCO2 from rising. 11. Large ventral hernia.? The patient was seen in consultation in May by Dr. Foster.? She wrote that the patient ?has a known recurrent incisional hernia and a known seroma of her lower abdominal wall?.? The patient is not a surgical candidate at this time. 12. Neuro/psych:? Seems to be doing about as well as can reasonably be expected on the Lamictal and Seroquel. 13. Laxation.? On daily Lactulose. 14. Hypothyroid.? Normal TSH and Free T4 on the levothyroxine. 15. Nutrition:? On goal rate Jevity. Stable for transfer to [facility] later today.? I spoke with her son Desmond yesterday evening. Time:? . Critical Care Time (minutes): 0 Physical Exam Vital Signs: Vital Signs: Last Vital Signs Temp 97.2 F 10/04/21 08:43 Pulse 67 10/04/21 10:00 Resp 10 L 10/04/21 10:00 BP 86/48 L 10/04/21 10:00 Pulse Ox 98 10/04/21 10:00 Oxygen Flow Rate 4 09/09/21 22:09 BMI result Body Mass Index 32.8 Objective Data Labs CBC & Chem 7: 10/03/21 05:30 10/04/21 05:25 Labs: Laboratory Results - last 24 hr 10/04/21 10/04/21 10/04/21 05:25 05:25 05:25 VBG pH 7.41 VBG pCO2 39 VBG pO2 44 VBG HCO3 25 VBG O2 Saturation 68.0 VBG Base Excess 0.9 Sodium 144 Potassium 4.2 Chloride 108 Carbon Dioxide 30 H Anion Gap 10 L BUN 14 Creatinine 0.69 Estim Creat Clear Calc 89.8 Estimated GFR > 60 Random Glucose 100 Calcium 9.9 Phosphorus 4.1 Magnesium 2.3 B-Natriuretic Peptide 1965 H Microbiology Microbiology Results: Microbiology 09/17/21 07:32 Sputum - Suctioned Gram Stain - Final 09/17/21 07:32 Sputum - Suctioned Sputum Culture - Final Beverly tropicalis 09/14/21 08:55 Blood - Venous Blood Culture - Final No growth after 5 days. 09/14/21 10:10 Catheter Tip - Cvp Catheter Tip Culture - Final 09/12/21 05:20 Blood - Venous Blood Culture - Final No growth after 5 days. 09/12/21 05:32 Blood - Venous Blood Culture - Final No growth after 5 days. 09/14/21 08:46 Blood - Venous Blood Culture - Final Coag negative Staphylococcus 09/09/21 22:41 Blood - Venous Blood Culture - Final No growth after 5 days. 09/09/21 22:41 Blood - Venous Blood Culture - Final Coag negative Staphylococcus 09/10/21 05:00 Sputum - Suctioned Gram Stain - Final 09/10/21 05:00 Sputum - Suctioned Sputum Culture - Final No growth. 09/10/21 00:00 Urine Catheterized - [facility] Catheter Urine Culture - Final Enterococcus faecalis Quality Stroke Does the patient have a stroke diagnosis?: No VTE Prior VTE?: No VTE Risk Level:: Medical - moderate - high VTE Device Contraindication: N/A - Device Ordered VTE Drug Contraindication: N/A - Med Ordered
--- NOTE | 2021-10-04 11:48 | PM.DS ---
DS: Providers Provider Date of Service: 10/04/21 Date of admission: 09/10/21 00:13 Primary care physician: Danny Lorenzana MD Consults: 09/12/21 14:58 Consult to Cardiology Routine Consulting Provider: Koby Page Reason for consultation: critical with 2nd intubation for CHF Has provider been notified: Yes 09/15/21 06:32 Consult to Psychiatry Routine Consulting Provider: Psych Covering Reason for consultation: agitation Has provider been notified: Yes 09/18/21 07:34 Consult to Infectious Diseases Routine Consulting Provider: Moira Holland Reason for consultation: Caspofungin ordered Has provider been notified: Yes 09/20/21 13:56 Consult to Thoracic Surgery Routine Consulting Provider: Laura Olmos Reason for consultation: Tracheostomy and gastrostomy placement Has provider been notified: No 09/27/21 12:39 Consult to Infectious Diseases Stat Consulting Provider: Moira Holland Reason for consultation: Restricted ABX DS: Diagnosis Discharge Diagnosis (1) Acute on chronic respiratory failure with hypoxia and hypercapnia: Status: Acute (2) Acute CHF: Status: Acute (3) Acute metabolic encephalopathy: Status: Acute (4) CAP (community acquired pneumonia): Status: Acute (5) Acute on chronic diastolic (congestive) heart failure: Status: Acute (6) Recurrent incisional hernia: Status: Acute (7) Acute CVA (cerebrovascular accident): Status: Acute (8) Fall: Status: Acute (9) Cerebral infarction: Status: Acute (10) Acute respiratory failure: Status: Acute (11) CHF exacerbation: Status: Acute (12) COPD exacerbation: Status: Acute (13) Altered mental state: Status: Acute (14) Atrial tachycardia: Status: Acute (15) Hypernatremia: Status: Acute (16) Agitation: Status: Acute (17) Aortic stenosis: Status: Acute (18) Failure to wean from mechanical ventilation: Status: Acute (19) Pulmonary aspiration: Status: Acute (20) Thoracic aortic aneurysm (TAA): Status: Acute (21) Respiratory failure with hypoxia and hypercapnia: Status: Acute (22) COPD (chronic obstructive pulmonary disease): Status: Acute (23) Chronic diastolic (congestive) heart failure: Status: Acute (24) Atrial arrhythmia: Status: Acute (25) DHEERAJ (obstructive sleep apnea): Status: Acute (26) On home oxygen therapy: Status: Acute (27) Bifascicular block: Status: Acute (28) Nonrheumatic aortic (valve) stenosis: Status: Acute (29) Atherosclerotic cardiovascular disease: Status: Acute DS: Summary Hospital Course Hospital Course: ? DISCHARGE/TRANSFER NOTE DATE OF DISCHARGE:? 10/04/21 DISPOSITION: To [facility], [place], [place]. DISCHARGE DIAGNOSES: 1. End-stage COPD with chronic CO2 retention.? No evidence of COPD exacerbation.? No steroids indicated. 2. S/P right parietal stroke.? In Dr. Sharma?s opinion the location of the stroke is most suggestive of an embolic phenomenon.? That is why he recommended anticoagulation.? Continuing Eliquis 2.5 mg bid. 3. Acute on chronic hypercapnic respiratory failure.? Etiology most likely CHF. 4. Congestive heart failure.? She has impressive LVH, undoubtedly has diastolic heart failure.? Unclear how much her aortic stenosis is a contributing factor. 5. Undoubtedly also has RHF.? Makes it difficult to diurese her because she?ll become hypotensive. 6. Moderate-severe aortic stenosis.? Dr. Page feels that no intervention for her valve is indicated at this time.? On the other hand, Dr. Proctor feels that her gradient is much higher than previously measured, and her valve area could be as low as 0.5 cm2, i.e. critical .? In his opinion, she should undergo cardiac catheterization to definitively determine her aortic gradient, after her acute illness resolves.? She could potentially be a candidate for TAVR. 7. Heart rhythm:? Mostly SR with freq PACs.? There is no treatment.? She is not a candidate for beta-blockers.? Best management is to keep her potassium and Magnesium in at least mid-range levels. Plan intermittent telemetry as needed. 8. History of DHEERAJ.? Her head and neck habitus are highly suggestive.? Tracheostomy may solve that problem. 9. H/o thoracic aortic aneurysm.? Should be addressed as an outpatient. 10. Metabolic alkalosis.? Secondary to end-stage COPD, along with diuresis.? At [facility], her bicarb should be followed, and if it rises, she should? be given Diamox 250 mg po once or twice daily to keep her serum bicarb at the high end of normal.? That will help prevent her pCO2 from rising. 11. Large ventral hernia.? The patient was seen in consultation in May by Dr. Foster.? She wrote that the patient ?has a known recurrent incisional hernia and a known seroma of her lower abdominal wall?.? The patient is not a surgical candidate at this time. 12. Neuro/psych:? Prior to Lamictal, had frequent angry, agitated, and combative behavior.? Seems to be doing well on the Lamictal and Seroquel.? (Zyprexa, even low dose, caused oversedation.) 13. Constipation.? On daily Lactulose. 14. Hypothyroid.? Normal TSH and Free T4 on the levothyroxine. 15. Nutrition:? On goal rate Jevity tube feeds. Mrs. Maradiaga is a 71-year-old female with PMHx of obesity, irreparable large ventral hernia(s) s/p previous repair attempt, ongoing smoker, DHEERAJ, chronic oxygen-dependent COPD with CO2 retention, moderate aortic stenosis, diastolic congestive heart failure, atrial arrhythmia, bifascicular block, thoracic aortic aneurysm, hyperlipidemia, anxiety, B12 deficiency, irritable bowel syndrome, GERD, and hypothyroidism.? She?s on 2L NC at home and she?s had consistently elevated serum bicarbonate level since Aug, 2020.? She currently takes Diamox at home. The patient lives with her son Desmond who is her healthcare proxy (cell [phone]; home [phone]). The patient was admitted to [facility] in May for hypercapnic respiratory failure.? She was again admitted 08/21-08/28- for a fall, thought 2? to subacute parietal infarct.? Dr. Sharma recommended anticoagulation, altho echo showed no LV thrombus.? Course was complicated by acute delirium which then led to hypoxemic and hypercarbic respiratory failure and two-day tracheal intubation.? She was treated with Diamox, ceftriaxone, and Zithromax.? Ultimately she was discharged home on August 28.? She was put on low dose Eliquis for stroke prophylaxis. HISTORY OF PRESENT ILLNESS:? The patient was BIBA to the ED on 09/10 because of altered mental status.? The patient denied any fevers chills or chest pain.? EMS reported that at the scene, the Sat was 88% on 2LNC. In the ED, the respiratory rate was 18 with a sat of 98% on 4 L oxygen by nasal cannula.? Heart rate was 98, blood pressure 152/74.? She was afebrile.? Patient had no JVD but she had 3+ bilateral edema.? She had mild rales noted with increased work of breathing. Labs in the ED were notable for white count of 9.6, BUN/creatinine 12/0.7, BNP 1378 (up from 762 on August 25).? Lactic acid was normal.? VBG showed 7.23/87/+6.? (Last VBG on August 25 showed 7.36/44/0.) Head CT showed expected evolution of her right parietal lobe infarct.? Chest x-ray was read as showing scattered bilateral opacities.? My reading, comparing the film to her previous films suggests pulmonary edema.? Chest CT showed multifocal right lung consolidation, especially in the lower lobe, suggestive of pneumonia.? Note that her last chest CT on August 23 also showed right lower lobe consolidation, although not as bad.? She also had mild diffuse bilateral ground-glass opacity suggestive of edema.? The patient also had a moderate to large volume of stool. She was placed on BiPAP, and then with declining mental status, subsequently intubated.? She then underwent a CT angiogram which showed no pulmonary emboli.? The CTPA also showed that the main pulmonary artery was dilated; she had marked LVH, with smallish LV cavity, such that RV:LV cavity ratio was 1.0; both atria were huge.? The RLL infiltrate on the CTPA was much less impressive. The patient was admitted to the ICU, a central line is placed, and she was treated with antibiotics and diuresis.? She also briefly had AFib with RVR and was put on diltiazem, but not long after [facility] to [facility].? She was treated with vancomycin for an enterococcal urinary tract infection. She was extubated on 09/12.? She converted to SR with runs of atrial tachycardia.? She continued to use BiPAP prn after extubation.? The patient has a longstanding psychiatric history and required multiple doses of antipsychotics for behavior control.? She developed a coag-negative staph bacteremia. She required re-intubation on September 16.? She was treated for obstipation.? Last echocardiogram done on 09/19/2021 with the patient on dobutamine showed: - Normal left ventricular size and systolic function. - Mildly increased right ventricular cavity size, w normal right ventricular systolic function. - Moderate aortic valve stenosis.? Peak velocity 3.40 m/s.? Mean gradient 30 mmHg.? Valve area 1.31 cm2. ?Stroke volume 118 ml. - Tricuspid valve peak velocity 2.49 m/s (gradient 25mm). - inferior vena cava dilated we with no inspiratory collapse. The patient was diuresed and extubated on September 20.? Unfortunately she aspirated and required re-intubation within 4 hours.? She was given 3 days of Unasyn.? She underwent tracheostomy and PEG on Sep 28.? She?s been weaning slowly since then.? Her rhythm has been consistently SR with runs of atrial tachycardia. On Oct 03, she was off all sedation, just on Lamictal 50 mg bid and Seroquel 25mg qhs because of behavioral issues.? She was fully awake and easily interactive, altho unhappy.? Mostly, she?s been calm.? She transitioned easily to pressure support ventilation, at pressure support level of 15cm. ?On a level of pressure support of 12 cm, she felt dyspneic.? She stayed on PSV for a number of hours, then went back on AC overnite. She easily went back onto PSV this morning.? She?s fully awake this morning and calm.? Breathing easy on pressure support ventilation on PSV 18/30%/+5.? Respiratory rate is 10, VT 510cc, Ve 5.5L.? Central venous blood gas this morning showed 7.41/39/0 on very low dose Diamox.? She remains afebrile.? HR 70, BP 117/69. After potassium repletion yesterday, she?s still has freq PACs, but much less tachycardia. The patient is stable for discharge to [facility] today. Status at Discharge Functional status at discharge: bed bound Time Spent with Patient Time attestation: Total time spent providing and/or coordinating discharge services: Discharge coordination time: Greater than 30 minutes Specific discharge activities: Discharge orders and discharge summaryh Quality: Stroke Does the patient have a stroke diagnosis?: Yes Reason for No Anti-thrombotic at DC: N/A - Med Ordered Reason for No Anticoagulant at DC: N/A - Med Ordered Reason Not Initiating IV-Tpa: Contraindicated Reason for No Anti-thrombotic by Day Two: Contraindicated Reason for No Statin at DC: N/A - Med Ordered Physical Exam Vital Signs: Vital Signs: Last Vital Signs Temp 97.2 F 10/04/21 08:43 Pulse 68 10/04/21 11:00 Resp 11 L 10/04/21 11:00 BP 117/69 10/04/21 11:00 Pulse Ox 97 10/04/21 11:00 Oxygen Flow Rate 4 09/09/21 22:09 BMI result Body Mass Index 32.8 DS: Data Data Completed and Pending Completed studies during hospitalization [Text1]: Procedures Assistance with Respiratory Ventilation, Less than 24 Consecutive Hours, Continuous Positive Airway Pressure (05/25/21) Insertion of Endotracheal Airway into Trachea, Via Natural or Artificial Opening Endoscopic (08/22/21) Insertion of Infusion Device into Superior Vena Cava, Percutaneous Approach (08/22/21) Introduction of Vasopressor into Central Vein, Percutaneous Approach (08/22/21) Respiratory Ventilation, 24-96 Consecutive Hours (08/22/21) Labs on day of discharge: Laboratory Results - last 24 hr 10/04/21 10/04/21 10/04/21 05:25 05:25 05:25 VBG pH 7.41 VBG pCO2 39 VBG pO2 44 VBG HCO3 25 VBG O2 Saturation 68.0 VBG Base Excess 0.9 Sodium 144 Potassium 4.2 Chloride 108 Carbon Dioxide 30 H Anion Gap 10 L BUN 14 Creatinine 0.69 Estim Creat Clear Calc 89.8 Estimated GFR > 60 Random Glucose 100 Calcium 9.9 Phosphorus 4.1 Magnesium 2.3 B-Natriuretic Peptide 1965 H Discharge Plan Discharge Patient Disposition: Xfer Acute Care Hospital Discharge Diagnosis: Hypercapnic respiratory failure Referrals: [facility] [Outside] - 1 Week Danny Lorenzana MD [Primary Care Provider] - 1 Week Discharge Medications: New quetiapine 25 mg Tablet 25 mg PO BEDTIME Qty: 1 RF: 0 lamotrigine 25 mg Tablet 50 mg PO BID Qty: 1 RF: 0 levothyroxine 150 mcg Tablet 150 mcg PO DAILY@0600 1 Days Qty: 1 RF: 0 gabapentin 300 mg Capsule 300 mg PO BEDTIME Qty: 1 RF: 0 famotidine (PF) 20 mg/2 mL Solution 20 mg IVPUSH DAILY 1 Days Qty: 2 RF: 0 lactulose 20 gram/30 mL Solution 30 g PO DAILY 1 Days Qty: 45 RF: 0 Continued albuterol sulfate 90 mcg/actuation HFA aerosol inhaler 2 puff PO DAILY PRN (Reason: for dyspnea) Qty: 18 RF: 3 Spiriva with HandiHaler 18 mcg capsule, w/inhalation device 1 cap inhalation DAILY RF: 0 apixaban 2.5 mg Tablet 2.5 mg PO BID RF: 0 ipratropium-albuterol 0.5 mg-3 mg(2.5 mg base)/3 mL solution for nebulization 3 ml inhalation BID RF: 0 atorvastatin 40 mg tablet 40 mg PO BEDTIME RF: 0 Held Myrbetriq 50 mg tablet extended release 24 hr 50 mg PO BID 30 Days Qty: 60 RF: 6 Hold Instructions: decision oxybutynin chloride 15 mg tablet extended release 24 hr 15 mg PO BID RF: 0 Hold Instructions: decision aspirin 81 mg Tablet,Chewable 81 mg PO DAILY RF: 0 Hold Instructions: decision Breo Ellipta 200-25 mcg/dose blister with device 1 inh inhalation BEDTIME RF: 0 Hold Instructions: decision acetazolamide 250 mg tablet 250 mg PO DAILY Qty: 30 RF: 0 Hold Instructions: decision trazodone 50 mg tablet 0.5 tab PO BEDTIME PRN (Reason: Insomnia) RF: 0 Hold Instructions: decision buspirone 7.5 mg tablet 1 tab PO BID RF: 0 Hold Instructions: MD carpio Viibryd 40 mg tablet 1 tab PO DAILY RF: 0 Hold Instructions: decision lactulose 10 gram/15 mL solution 15 ml PO BID PRN (Reason: Constipation) RF: 0 Hold Instructions: decision omeprazole 20 mg capsule,delayed release(DR/EC) 20 mg PO DAILY@0630 RF: 0 Hold Instructions: MD carpio levothyroxine 175 mcg tablet 175 mcg PO DAILY@0630 RF: 0 Hold Instructions: MD carpio dicyclomine 10 mg capsule 10 mg PO TIDWM RF: 0 Hold Instructions: MD carpio clonazepam 0.5 mg tablet 0.25 mg PO BEDTIME PRN (Reason: Sleep) RF: 0 Hold Instructions: decision furosemide 20 mg tablet 40 mg PO BID@0900,1700 RF: 0 Hold Instructions: MD decision Discontinued diltiazem HCl 120 mg capsule,extended release 12 hr 120 mg PO BID RF: 0 Discharge Orders: Discharge Order (Routine); Ordered 10/04/21 Ordered By: Jacob Ferrell Diet: advance to usual diet Activity on Discharge: As tolerated Stand Alone Forms: Patient Portal Discharge page Care Plan Goals: - Health Concerns: - Plan of Treatment: - Assessment: Transfer to [facility].
[2021-10-04 12:20] LABS: COVID-19 Test Negative (Negative); IDNOW Serial# 9DD0AD1C
== END 2021-10-04 14:12 | disposition short-term general hospital (02) | DRG 4 ==
LOC: HO.ED 23:57 → HO.EDOVER 09-10 00:19 → HO.ICU 09-10 01:44
PROVIDERS: Internal Medicine Cardiovascular Disease; Internal Medicine Pulmonary Disease; Physician Assistant; Physician Assistant Medical; Surgery; Admitting Provider Anesthesiology; Emergency Provider Student in an Organized Health Care Education/Training Program; PCP Internal Medicine; Visit Provider Anesthesiology
PROC: 0DH63UZ Insertion of Feeding Device into Stomach, Percutaneous Approach (ICD-10-PCS; CPT 43246; principal; 2021-09-28 13:30)
PROC: 0B113F4 Bypass Trachea to Cutaneous with Tracheostomy Device, Percutaneous Approach (ICD-10-PCS; 2021-09-28 13:30)
DX: J96.21 Acute and chronic respiratory failure with hypoxia (principal); I50.33 Acute on chronic diastolic (congestive) heart failure; G93.41 Metabolic encephalopathy; J44.1 Chronic obstructive pulmonary disease with (acute) exacerbation; E87.3 Alkalosis; E87.0 Hyperosmolality and hypernatremia; F19.931 Other psychoactive substance use, unspecified with withdrawal delirium; J96.22 Acute and chronic respiratory failure with hypercapnia; I35.0 Nonrheumatic aortic (valve) stenosis; F17.210 Nicotine dependence, cigarettes, uncomplicated; G47.33 Obstructive sleep apnea (adult) (pediatric); Z71.6 Tobacco abuse counseling; I50.810 Right heart failure, unspecified; K43.9 Ventral hernia without obstruction or gangrene; I71.2 Thoracic aortic aneurysm, without rupture; F32.A Depression, unspecified; I27.29 Other secondary pulmonary hypertension; E66.9 Obesity, unspecified; Z68.32 Body mass index [BMI] 32.0-32.9, adult; Z20.822 Contact with and (suspected) exposure to COVID-19; Z86.73 Personal history of transient ischemic attack (TIA), and cerebral infarction without residual deficits; Z99.89 Dependence on other enabling machines and devices; Z99.81 Dependence on supplemental oxygen; Z79.01 Long term (current) use of anticoagulants; Z79.890 Hormone replacement therapy; Z79.899 Other long term (current) drug therapy
CPT/HCPCS: 36415; 36600; 70450; 71045; 71250; 71275; 74018; 74176; 76705; 80048; 80053; 80076; 80202; 81001; 81003; 82040; 82803; 82947; 83605; 83690; 83735; 83880; 84100; 84439; 84443; 84484; 85025; 85610; 85652; 86140; 86850; 86900; 86901; 87040; 87070; 87071; 87077; 87086; 87088; 87147; 87186; 87205; 87635; 92610; 93005; 93308; 94002; 94003; 94640; 94660; 94799; 96365; 96367; 96375; 97163; 97167; 99285; 99291; J0282; J0295; J0637; J0690; J1250; J1650; J1940; J1956; J2250; J2270; J2370; J2405; J2543; J2920; J3010; J3370; P9047; Q9967